=== PATIENT | male | born 1970 | race Caucasian/White ===

== ENCOUNTER 2021-02-08 18:16 | Emergency (ER) | payer OTHER, SELFPAY | END 2021-02-08 20:02 | disposition left against medical advice (07) | PROVIDERS: Emergency Provider Emergency Medicine; PCP Internal Medicine | DX: Z04.3 Encounter for examination and observation following other accident (principal) ==

== ENCOUNTER 2024-06-04 10:41 | Inpatient (IN) | payer OTHER, SELFPAY ==
[2024-06-04] VITALS (7 sets, daily range): BP systolic 117–136; BP diastolic 87–100; PULSE 88–108; RESP 19–22; TEMP 36.6–36.8; O2SAT 88–96; BMI 46.2
--- NOTE | ~2024-06-04 | CT_ITS ---
EXAMINATION: CT ANGIOGRAM CHEST CLINICAL INFORMATION: Pleuritic chest pain COMPARISON: None available. TECHNIQUE: Multiple axial images were obtained through the chest after the administration of 50 mL of Omnipaque 350 intravenous contrast. Extensive vascular post-processing including two-dimensional and three-dimensional reformatted images were created and reviewed on an independent workstation. This CT examination was performed using dose optimization techniques as appropriate, variously including the following: *Automated exposure control *Adjustment of mA and/or kV according to patient size (this includes techniques or standardized protocols for targeted exams where dose is matched to indication/reason for exam; i.e. extremities or head) *Use of iterative reconstruction technique DLP: Findings 7 mGy-cm FINDINGS: Vascular: The pulmonary artery and its branches are widely patent. There is no intraluminal filling defect. The thoracic aorta is of normal caliber. Heart size enlarged. Mild pericardial effusion seen. No coronary artery calcification seen. Nonvascular: The reactive small lymph nodes in the mediastinum largest measuring 1.5 cm in the para-aortic space. The thyroid gland is not visualized. Central trachea and bronchi are widely patent. The lungs are expanded with mild groundglass density in both upper and lower lobes but no consolidation seen. There is bilateral small pleural effusions. No abnormal axillary lymph nodes seen. The chest wall is unremarkable. Visualized liver, spleen, gallbladder and pancreas is unremarkable no acute aggressive lytic or sclerotic process seen. CT/CT angio chest PE protocol IMPRESSION: No evidence of PE. No evidence of aortic aneurysm. Small bilateral pleural effusions. Nonspecific groundglass attenuation seen in both lower lobes and upper lobes likely airway disease. No acute consolidation seen. Fleischner guidelines were followed. Electronically signed by: Alcon Hogan MD 06/04/2024 02:40 PM EST
--- NOTE | ~2024-06-04 | XR_ITS ---
EXAMINATION: XR CHEST CLINICAL INFORMATION: bradycardia COMPARISON: None available. TECHNIQUE: Frontal view of the chest was obtained. FINDINGS: The lungs are well-expanded and clear. The heart size is borderline normal. Mild prominence of perihilar markings is seen but no suspicion for congestion. There is no pleural effusion. No gross bony abnormality. XR/XR chest 1V IMPRESSION: Borderline heart size. Mildly increased bilateral perihilar markings but no congestion seen. Electronically signed by: Alcon Hogan MD 06/04/2024 11:43 AM EST
--- NOTE | 2024-06-04 10:55 | ECG_ITS ---
Test Reason : CHEST PAIN Blood Pressure : / mmHG Vent. Rate : 107 BPM Atrial Rate : 107 BPM P-R Int : 172 ms QRS Dur : 090 ms QT Int : 366 ms P-R-T Axes : 050 -33 059 degrees QTc Int : 488 ms Sinus tachycardia Left axis deviation Inferior infarct , age undetermined Anterior infarct , age undetermined Abnormal ECG No previous ECGs available Referred By: Generic ED Physician Electronically Signed By:NYDIA SINGH MD
--- OUTSIDE RECORDS SUMMARY | 2024-06-04 11:11 | XMS_ITS | Continuity of Care Document ---
Author Name [facility] Organization [facility] Care Team Providers Care Grading Machine Feeder Name Role Phone [facility]-AR Unavailable Unavailable Problems Combined list of problems from Department of Defense and Veterans Affairs facilities. It does not include entries that were removed or entered in error. Problem Status Onset Date Problem Type Date of Resolution Comments Source Calculus of Kidney Active 06/03/19 10 Condition [facility] Chronic sinusitis Active 06/03/19 07 Condition [facility] Sleep apnea Active 06/03/19 00 Condition [facility] Tinnitus Active 06/03/18 90 Condition [facility] Anxiety Active Condition [facility] Binge eating behaviour Active Condition [facility] Cluster headache (SNOMED CT 138223304) Active Condition [facility] Exposure to potentially hazardous substance (SCT 281844045992889) Active Condition Dec 02 Entered By: MANUELA ARTEAGA Comment: Entered automatically through [employer] Problem List documentation program [facility] HTN - Hypertension (SCT 45569439) Active Condition [facility] Insomnia Active Condition [facility] Obesity (SNOMED CT 956956698) Active Condition [facility] Recurrent major depression Active Condition [facility] HYPERTROPHY OF BREAST Inactive Condition 11/17/2004 [facility] ROUTINE MEDICAL EXAM Inactive Condition 11/17/2004 [facility] Diagnosis: ICD-10-CM F33.1 Major depressive disorder, recurrent, moderate Active Diagnosis [facility] Diagnosis: ICD-10-CM E66.9 Obesity, unspecified Active Diagnosis [facility] Diagnosis: ICD-10-CM F51.01 Primary insomnia [facility] Diagnosis: ICD-10-CM G43.019 Migraine w/o aura, intractable, without status migrainosus Active Diagnosis [facility] Diagnosis: ICD-10-CM H93.19 Tinnitus, unspecified ear Active Diagnosis [facility] Diagnosis: ICD-10-CM Z02.89 Encounter for other administrative examinations Active Diagnosis [facility] Diagnosis: ICD-10-CM F41.1 Generalized anxiety disorder Active Diagnosis [facility] Diagnosis: ICD-10-CM Z23 Encounter for immunization Active Diagnosis [facility] Diagnosis: ICD-10-CM F50.81 Binge eating disorder Active Diagnosis [facility] Diagnosis: ICD-10-CM I10 Essential (primary) hypertension Active Diagnosis [facility] [place] [facility] Diagnosis: ICD-10-CM G47.30 Sleep apnea, unspecified Active Diagnosis [facility] [place] [facility] Medications Combined list of outpatient medications from Department of Defense and Veterans Affairs facilities.Medications provided include 1) outpatient medications from the last 15 months, and 2) patient-reported medications. Medication Details Route Status Patient Instructions Prescription Expires Prescription Number Last Dispense Date Ordering Provider Order Date Order Qty Source CHOLECALCIF DINORA 50MCG (2,000UNIT) TAB TAKE ONE TABLET BY MOUTH ONCE DAILY FOR VITAMIN SUPPLEME NTATION ORAL ACTIVE 12/02/2024 [id number] DELIA CHRISTIANSEN 2023 100 [facility] NORTRIPTYLI NE HCL 25MG CAP TAKE ONE CAPSULE BY MOUTH AT BEDTIME HEADACHE ORAL 05/23/2024 [id number] 4 GARR[facility] ROCHA 2022 90 [facility] SERTRALINE HCL 50MG TAB TAKE ONE-HALF TABLET BY MOUTH EVERY MORNING FOR 3 DAYS, THEN TAKE ONE TABLET EVERY MORNING FOR DEPRESSI ON ORAL ACTIVE 06/04/2024 [id number] 4 Iggy CHIU 2023 29 [facility] SUMATRIPTAN SUCCINATE 100MG TAB TAKE ONE TABLET BY MOUTH DIRECTED FOR MIGRAINE HEADACHE AT ONSET OF HEADACHE ; MAY REPEAT IN 2 HOURS IF FIRST DOSE IS NOT EFFECTIV E ORAL 05/23/2024 [id number] 4 GARRY ROCHA 2022 18 [facility] SUMATRIPTAN SUCCINATE 50MG TAB TAKE ONE TABLET BY MOUTH DIRECTED FOR MIGRAINE HEADACHE AT ONSET OF HEADACHE ; MAY REPEAT IN 2 HOURS IF FIRST DOSE IS NOT EFFECTIV E ORAL DISCONT INUED (EDIT) 03/13/2024 [id number] 3 DELIA CHRISTIANSEN 2022 9 [facility] TRAZODONE HCL 100MG TAB TAKE ONE TABLET BY MOUTH AT BEDTIME AND TAKE ONE TABLET AT BEDTIME NEEDED FOR INSOMNIA ORAL ACTIVE 05/26/2025 [id number] 4 Iggy CHIU 2023 60 [facility] Immunizations Combined list of available immunizations from the Department of Defense and Veterans Affairs facilities. Immunization Series Date Given Administered By Site Reaction Lot Number CVX Code Drug Emissions Testing And Repair Technician Status Comments Source COVID-19 (MODERNA), MRNA, LNP-S, PF, 50 MCG/0.5 ML (AGES 12+ YEARS) 2023 ZANVETTOR,CESAR BLESSING LEFT DELTO ID [id number] 312 complet ed [facility] ZOSTER RECOMBINANT 2023 ZANVETTOR,CESAR BLESSING RIGHT DELTO ID [id number] 187 complet ed [facility] TDAP 2023 ZANVETTOR,CESAR BLESSING LEFT DELTO ID [id number] 115 complet ed [facility] ZOSTER RECOMBINANT 2023 ZANVETTOR,CESAR BLESSING RIGHT DELTO ID [id number] 187 complet ed [facility] INFLUENZA, INJECTABLE, QUADRIVALENT, PRESERVATIVE FREE 2022 CESAR OSBORNE LEFT DELTO ID [id number] 150 complet ed [facility] INFLUENZA, UNSPECIFIED FORMULATION 2021 88 complet ed Vet record [facility] FLU,3 YRS (HISTORICAL) 2015 88 complet ed [facility] FLU,3 YRS (HISTORICAL) 2012 88 complet ed [facility] FLU,3 YRS (HISTORICAL) 2011 88 complet ed Site: Right Deltoid [facility] FLU,3 YRS (HISTORICAL) 2010 88 complet ed Site: Left Deltoid [facility] HEP B, ADULT 2001 BOB DRUMMOND 43 complet ed [facility] HEP B, ADULT 2000 DELFIN LEVIN 43 complet ed [facility] HEP B, ADULT 2000 VANE BEEBE 43 complet ed [facility] INFLUENZA, UNSPECIFIED FORMULATION 1997 GUSTAVO BROWN 88 complet ed [facility] Results Combined list of recent chemistry, hematology and other laboratory results from Department of Defense and Veterans Affairs, ranging from 15 months to all on record, depending upon the facility. Order Name Results Value Reference Range Date Interpretation Specimen Comments Source BASIC METABOLIC PANEL (fasting) UREA NITROGEN [MASS/VOLUM E] IN SERUM OR PLASMA 15 mg/dL 7 - 25 08/26 Specimen Type: SERUM No comment entered. Ordering Provider: ROBERTO CHRISTIANSEN Report Released Date/Time: Jun 25, 2023 08:42 AM Reporting Lab: [facility] [place] [facility] [address] [facility] [address] Performing Lab: [facility] [place] [facility] [address] [facility] [address] [facility] [place] [facility] BASIC METABOLIC PANEL (fasting) GLUCOSE [MASS/VOLUM E] IN SERUM OR PLASMA 95 mg/dL 65 - 100 08/26 Specimen Type: SERUM No comment entered. Ordering Provider: ROBERTO CHRISTIANSEN Report Released Date/Time: Jun 25, 2023 08:42 AM Reporting Lab: [facility] [place] [facility] [address] [facility] [address] Performing Lab: [facility] [place] [facility] [address] [facility] [address] [facility] BASIC METABOLIC PANEL (fasting) SODIUM [MOLES/VOLU ME] IN SERUM OR PLASMA 142 mmol/L 135 - 145 08/26 Specimen Type: SERUM No comment entered. Ordering Provider: ROBERTO CHRISTIANSEN Report Released Date/Time: Jun 25, 2023 08:42 AM Reporting Lab: [facility] [place] [facility] [address] [facility] [address] Performing Lab: [facility] [place] [address] [address] [facility] BASIC METABOLIC PANEL (fasting) POTASSIUM [MOLES/VOLU ME] IN SERUM OR PLASMA 4.3 mmol/L 3.5 - 5.0 08/26 Specimen Type: SERUM No comment entered. Ordering Provider: ROBERTO CHRISTIANSEN Report Released Date/Time: Jun 25, 2023 08:42 AM Reporting Lab: [facility] [place] [address] [address] Performing Lab: [facility] [place] [facility] [address] [facility] [address] [facility] BASIC METABOLIC PANEL (fasting) CHLORIDE [MOLES/VOLU ME] IN SERUM OR PLASMA 107 mmol/L 100 - 110 08/26 Specimen Type: SERUM No comment entered. Ordering Provider: ROBERTO CHRISTIANSEN Report Released Date/Time: Jun 25, 2023 08:42 AM Reporting Lab: [facility] [place] [address] [address] Performing Lab: [facility] [place] [facility] [address] [facility] [address] [facility] BASIC METABOLIC PANEL (fasting) CARBON DIOXIDE, TOTAL [MOLES/VOLU ME] IN SERUM OR PLASMA 25 meq/L 20 - 30 08/26 Specimen Type: SERUM No comment entered. Ordering Provider: ROBERTO CHRISTIANSEN Report Released Date/Time: Jun 25, 2023 08:42 AM Reporting Lab: [facility] [address] [address] Performing Lab: [facility] [phone] [place] [address] BASIC METABOLIC PANEL (fasting) CREATININE [MASS/VOLUM E] IN SERUM OR PLASMA 0.68 mg/dL 0.50 - 1.40 08/26 Specimen Type: SERUM No comment entered. Ordering Provider: ROBERTO CHRISTIANSEN Report Released Date/Time: Jun 25, 2023 08:42 AM Reporting Lab: [facility] [address] [address] Performing Lab: [facility] [address] [address] [facility] BASIC METABOLIC PANEL (fasting) GLOMERULAR FILTRATION RATE/1.73 SQ M.PREDICTED [VOLUME RATE/AREA] IN SERUM, PLASMA OR BLOOD BY CREATININE- BASED FORMULA (CKD-EPI 2020) >90mL/ min 60 08/26 Specimen Type: SERUM No comment entered. Ordering Provider: ROBERTO CHRISTIANSEN Report Released Date/Time: Jun 25, 2023 08:42 AM Reporting Lab: [facility] [address] [address] Performing Lab: [facility] [address] [address] [facility] CBC LEUKOCYTES [#/VOLUME] IN BLOOD BY AUTOMATED COUNT 5.18 10*3/u L 4.50 - 11.00 08/26 Specimen Type: BLOOD No comment entered. Ordering Provider: ROBERTO CHRISTIANSEN Report Released Date/Time: Jun 25, 2023 08:42 AM Reporting Lab: [facility] [place] [facility] [address] [facility] [address] Performing Lab: [facility] [address] [address] [facility] CBC ERYTHROCYTE S [#/VOLUME] IN BLOOD BY AUTOMATED COUNT 5.10 10*6/u L 4.23 - 5.66 08/26 Specimen Type: BLOOD No comment entered. Ordering Provider: ROBERTO CHRISTIANSEN Report Released Date/Time: Jun 25, 2023 08:42 AM Reporting Lab: [facility] [place] [facility] [address] [facility] [address] Performing Lab: [facility] [place] [facility] [address] [facility] [address] [facility] CBC HEMOGLOBIN [MASS/VOLUM E] IN BLOOD 14.3 g/dL 12.8 - 17 08/26 Specimen Type: BLOOD No comment entered. Ordering Provider: ROBERTO CHRISTIANSEN Report Released Date/Time: Jun 25, 2023 08:42 AM Reporting Lab: [facility] [place] [facility] [address] [facility] [address] Performing Lab: [facility] [place] [facility] [address] [facility] [address] [facility] CBC HEMATOCRIT [VOLUME FRACTION] OF BLOOD BY AUTOMATED COUNT 43.5 39.2 - 50.4 08/26 Specimen Type: BLOOD No comment entered. Ordering Provider: ROBERTO CHRISTIANSEN Report Released Date/Time: Jun 25, 2023 08:42 AM Reporting Lab: [facility] [place] [facility] [address] [facility] [address] Performing Lab: [facility] [place] [facility] [address] [address] [facility] [place] CBC MCV [ENTITIC VOLUME] BY AUTOMATED COUNT 85.3 fL 82 - 99 08/26 Specimen Type: BLOOD No comment entered. Ordering Provider: ROBERTO CHRISTIANSEN Report Released Date/Time: Jun 25, 2023 08:42 AM Reporting Lab: [facility] [address] [facility] [address] Performing Lab: [facility] [address] [facility] [address] [facility] [place] [facility] CBC MCHC [MASS/VOLUM E] BY AUTOMATED COUNT 32.9 g/dL 30.8 - 35.1 08/26 Specimen Type: BLOOD No comment entered. Ordering Provider: ROBERTO CHRISTIANSEN Report Released Date/Time: Jun 25, 2023 08:42 AM Reporting Lab: [facility] [place] [facility] [address] [address] Performing Lab: [facility] [place] [facility] [address] [address] [facility] [place] [facility] CBC PLATELETS [#/VOLUME] IN BLOOD BY AUTOMATED COUNT 179 10*3/u L 140 - 360 08/26 Specimen Type: BLOOD No comment entered. Ordering Provider: ROBERTO CHRISTIANSEN Report Released Date/Time: Jun 25, 2023 08:42 AM Reporting Lab: [facility] [place] [facility] [address] [address] Performing Lab: [facility] [place] [facility] [address] [facility] [address] [facility] [place] [facility] CBC ERYTHROCYTE DISTRIBUTIO N WIDTH [RATIO] BY AUTOMATED COUNT 12.8 12.0 - 16.0 08/26 Specimen Type: BLOOD No comment entered. Ordering Provider: ROBERTO CHRISTIANSEN Report Released Date/Time: Jun 25, 2023 08:42 AM Reporting Lab: [facility] [address] [facility] [address] Performing Lab: [facility] [address] [address] [facility] [place] [facility] CBC MCH [ENTITIC MASS] BY AUTOMATED COUNT 28.0 pg 26.2 - 32.6 03/26 /2024 Specimen Type: BLOOD No comment entered. Ordering Provider: ROBERTO CHRISTIANSEN Report Released Date/Time: Jun 25, 2023 08:42 AM Reporting Lab: [facility] [address] [address] Performing Lab: [facility] [address] [facility] [address] [facility] FOLATE FOLATE [MASS/VOLUM E] IN SERUM OR PLASMA 11.13 ng/mL 5.2 08/26 Specimen Type: SERUM No comment entered. Ordering Provider: ROBERTO CHRISTIANSEN Report Released Date/Time: Jun 25, 2023 08:42 AM Reporting Lab: [facility] [address] [address] Performing Lab: [facility] [address] [facility] [facility] [address] [facility] HEMOGLOBI N A1C PANEL HEMOGLOBIN A1C/HEMOGLO BIN.TOTAL IN BLOOD BY HPLC 5.4 4.0 - 5.6 08/26 Specimen Type: BLOOD Comment: Values obtained from A1C measurement s can vary. For atypical A1C assays, a reported value of 7.0 could actually be between 6.72 and 7.28 if measured by a reference method. A reported value of 9.0 could actually be between 8.73 and 9.27. Ref: http://www. ngsp.org/[place] Pdata.asp Ordering Provider: ROBERTO CHRISTIANSEN Report Released Date/Time: Jun 25, 2023 08:42 AM Reporting Lab: [facility] [address] [facility] [address] Performing Lab: [address] [address] [facility] MAGNESIUM MAGNESIUM [MASS/VOLUM E] IN SERUM OR PLASMA 2.0 mg/dL 1.6 - 2.6 08/26 Specimen Type: SERUM No comment entered. Ordering Provider: ROBERTO CHRISTIANSEN Report Released Date/Time: Jun 25, 2023 08:42 AM Reporting Lab: [facility] [address] [facility] [address] Performing Lab: [facility] [address] [facility] [address] [facility] PSA PROSTATE SPECIFIC AG [MASS/VOLUM E] IN SERUM OR PLASMA 1.35 ng/mL 0.00 - 4.00 08/26 Specimen Type: SERUM No comment entered. Ordering Provider: ROBERTO CHRISTIANSEN Report Released Date/Time: Jun 25, 2023 08:42 AM Reporting Lab: [facility] [address] [facility] [address] Performing Lab: [facility] [address] [facility] [address] [facility] THYROID T4 FREE(FT4) THYROXINE (T4) FREE [MASS/VOLUM E] IN SERUM OR PLASMA 0.90 ng/dL 0.6 - 1.6 08/26 Specimen Type: SERUM No comment entered. Ordering Provider: ROBERTO CHRISTIANSEN Report Released Date/Time: Jun 25, 2023 08:42 AM Reporting Lab: [facility] [place] [facility] [address] [facility] [address] Performing Lab: [facility] [place] [facility] [address] [facility] [address] [facility] TSH THYROTROPIN [UNITS/VOLU ME] IN SERUM OR PLASMA 1.38 u[IU]/ mL 0.35 - 5.00 08/26 Specimen Type: SERUM No comment entered. Ordering Provider: ROBERTO CHRISTIANSEN Report Released Date/Time: Jun 25, 2023 08:42 AM Reporting Lab: [facility] [place] [facility] [address] [facility] [address] Performing Lab: [facility] [address] [facility] [address] [facility] VITAMIN B12 COBALAMIN (VITAMIN B12) [MASS/VOLUM E] IN SERUM OR PLASMA 469 pg/mL 200 - 900 08/26 Specimen Type: SERUM No comment entered. Ordering Provider: ROBERTO CHRISTIANSEN Report Released Date/Time: Jun 25, 2023 08:42 AM Reporting Lab: [facility] [address] [facility] [facility] [address] Performing Lab: [facility] [address] [facility] [address] [facility] VITAMIN D (25-OH) 25-HYDROXYV ITAMIN D3 [MASS/VOLUM E] IN SERUM OR PLASMA 16 ng/mL 20 - 50 08/26 L Specimen Type: SERUM No comment entered. Ordering Provider: ROBERTO CHRISTIANSEN Report Released Date/Time: Jun 25, 2023 08:42 AM Reporting Lab: [facility] [place] [facility] [address] [facility] [address] Performing Lab: [facility] [place] [facility] [address] [facility] [facility] [address] [facility] [place] [facility] Vital Signs Combined list of inpatient and outpatient Vital Signs from Department of Defense and Veterans Affairs, ranging from 12 months to all on record, depending upon the facility. Vital Sign Value Date Comments Source SYSTOLIC BLOOD PRESSURE 135 12/02/19 24 15:14:21 [facility] [place] [facility] DIASTOLIC BLOOD PRESSURE 89 024 15:14:21 [facility] [place] [facility] PULSE OXIMETRY 96 12/02/2023 15:14:21 [facility] WEIGHT 386 12/02/2023 15[facility]14:21 [facility] BMI 52kg/m2 12/02/2023 15:14:21 [facility] PAIN 2 12/02/2023 15:14:21 [facility] HEIGHT 72 12/02/2023 15:14:21 [facility] TEMPERATURE 97.6 12/02/2023 15:14:21 [facility] PULSE 93 12/02/2023 15:14:21 [facility] RESPIRATION 20 12/02/2023 15:14:21 [facility] Encounters Combined list of: 1) Encounters from Department of Veterans Affairs facilities going back up to thelast 18 months. 2) Encounters from the Department of Defense facilities going back up to 280 months. Location Location Details Encounter Type Encounter Number Reason For Visit Attending Provider ADM Date DC Date Status Disposition Source [facility] Encounter [id number] 12/24 [facility] Out[facility] Encounter [id number] Diagnos is: ICD-10- CM Z02.89 Encount er for other adminis trative examina tions<b r/> DIONNA LOUIS 12/25 [facility] En[facility] [id number] 12/31 [facility] Out[facility] Encounter [id number] ISRAEL PRESTON I 01/03 [facility] Encounter [id number] 01/09 [facility] Out[facility]counter [id number] 03/06 [facility] Out[facility] Encounter [id number] 03/13 [facility] OFFICE O/P EST LOW 20-29 MIN [id number] Diagnos is: ICD-10- CM G47.30 Sleep apnea, unspeci fied
Carmen CHRISTIANSEN 03/13 [facility] En[facility] [id number] 04/24 [facility] Out[facility] Encounter [id number] DORIS OSBORNE 04/24 [facility] Out[facility] Encounter [id number] 04/26 [facility] OFF/OP CONSLTJ NEW/[place] HI 55 [id number] Diagnos is: ICD-10- CM G43.019 Migrain e w/o aura, intract able, without status migrain osus
GARRY ROCHA 05/23 [place] [facility] Out[facility] En[facility] [id number] 05/23 [facility] [id number] 06/13 [facility] OFFICE O/P EST MOD 30 MIN [id number] Diagnos is: ICD-10- CM I10 Essenti al (primar y) hyperte nsion<b r/> Carmen CHRISTIANSEN 06/25 [facility] PSYCH DIAGNOSTIC EVALUATION [id number] Diagnos is: ICD-10- CM H93.19 Tinnitu s, unspeci fied ear<br/ > Tyerll TAPIA Amanda 07/01 [facility] MTMS BY PHARM ADDL 15 MIN [id number] Diagnos is: ICD-10- CM E66.9 Obesity , unspeci fied
GDULA,JANETH A 07/09 [facility] MTMS BY PHARM EST 15 MIN [id number] Diagnos is: ICD-10- CM E66.9 Obesity , unspeci fied
GDULA,JANETH A 07/30 [facility] Outpatient Encounter [id number] 08/07 [facility] Outpatient Encounter [id number] 08/12 [facility] OFFICE O/P EST MOD 30 MIN [id number] Diagnos is: ICD-10- CM G43.019 Migrain e w/o aura, intract able, without status migrain osus
GARRY ROCHA 08/21 [facility] Outpatient [facility]counter [id number] 08/21 [facility] PSYTX W PT 60 MINUTES [id number] Diagnos is: ICD-10- CM H93.19 Tinnitu s, unspeci fied ear<br/ > BLAYNE ALVES 08/21 [facility] [facility] Encounter [id number] 08/29 [facility] PSYTX W PT 45 MINUTES [id number] Diagnos is: ICD-10- CM H93.19 Tinnitu s, unspeci fied ear<br/ > BLAYNE ALVES 09/05 [facility] Out[facility] Encounter [id number] 09/05 [facility] PSYTX W PT 45 MINUTES [id number] Diagnos is: ICD-10- CM F51.01 Primary insomni a
RASTA COVARRUBIASNEY M 09/18 [facility] Out[facility] Encounter [id number] 09/24 [facility] PSYTX W PT 45 MINUTES [id number] Diagnos is: ICD-10- CM F50.81 Binge eating disorde r
BLAYNE ALVES 10/03 [facility] PSYTX W PT 45 MINUTES [id number] Diagnos is: ICD-10- CM F50.81 Binge eating disorde r
BLAYNE ALVES 10/17 [facility] OFFICE O/P EST MOD 30 MIN [id number] Diagnos is: ICD-10- CM G43.019 Migrain e w/o aura, intract able, without status migrain osus
AJ,GARRY POLLY 10/29 [place] [facility] Out[facility] Encounter [id number] 10/29 [facility] PSYTX W PT 45 MINUTES [id number] Diagnos is: ICD-10- CM H93.19 Tinnitu s, unspeci fied ear<br/ > ALISON TRAN 10/31 [facility] PSYTX W PT 45 MINUTES [id number] Diagnos is: ICD-10- CM F50.81 Binge eating disorde r
ALISON TRNA 11/14 [facility] Outpatient Encounter [id number] DORIS OSBORNE 11/20 [facility] PSYTX W PT 45 MINUTES [id number] Diagnos is: ICD-10- CM F50.81 Binge eating disorde r
ALISON TRAN 11/27 [facility] OFFICE O/P EST LOW 20 MIN [id number] Diagnos is: ICD-10- CM I10 Essenti al (primar y) hyperte nsion<b r/> Carmen CHRISTIANSEN 12/01 [facility] PSYTX W PT 45 MINUTES [id number] Diagnos is: ICD-10- CM F50.81 Binge eating disorde r
ALISON TRAN 12/19 [facility] Out[facility] Encounter [id number] 01/02 [facility] PSYTX W PT 45 MINUTES [id number] 1. Diagnos is: ICD-10- CM H93.19 Tinnitu s, unspeci fied ear<br/ > ALISON TRAN 01/16 [facility] PSYTX W PT 45 MINUTES [id number] Diagnos is: ICD-10- CM F51.01 Primary insomni a
ALISON TRAN 01/30 [facility] Out[facility] Encounter [id number] 02/10 [facility] Out[facility] Encounter [id number] 02/10 [facility] PSYTX W PT 45 MINUTES [id number] Diagnos is: ICD-10- CM F51.01 Primary insomni a
ALISON TRAN 02/27 [facility] Out[facility] Encounter [id number] 03/09 [facility] OFF/OP EST OCTOBER X REQ PHY/QHP [id number] Diagnos is: ICD-10- CM Z23 Encount er for immuniz ation<b r/> DORIS OSBORNE 03/09 [facility] PSYTX W PT 45 MINUTES [id number] Diagnos is: ICD-10- CM F41.1 General ized anxiety disorde r
JUAN ALBERTO MARTINEZ 03/13 [facility] Outpatient Encounter [id number] 1. Diagnos is: ICD-10- CM Z02.89 Encount er for other adminis trative examina tions<b r/> FAMILIA JENKINS 03/24 [facility] PSYTX W PT 45 MINUTES [id number] Diagnos is: ICD-10- CM H93.19 Tinnitu s, unspeci fied ear<br/ > RASTA COVARRUBIASNEY M 03/27 [facility] OFFICE O/P EST MOD 30 MIN [id number] Diagnos is: ICD-10- CM G43.019 Migrain e w/o aura, intract able, without status migrain osus
GARRY ROCHA 03/31 [place] [facility] Outpatient Encounter [id number] 1.03/31 [facility] PSYTX W PT W E/M 30 MIN [id number] 1. Diagnos is: ICD-10- CM F51.01 Primary insomni a
Sydnie BEDOYA BRENNAN B 04/01 [facility] Outpatient Encounter [id number] 04/08 [facility] PSYTX W PT 45 MINUTES [id number] 1. Diagnos is: ICD-10- CM E66.9 Obesity , unspeci fied
ALISON TRAN 04/24 [facility] Outpatient Encounter [id number] [facility] PSYCH DIAG EVAL W/MED SRVCS [id number] Diagnos is: ICD-10- CM F33.1 Major depress suzanne disorde r, recurre nt, moderat e
MILLY CHIU 05/04 [facility] [place] [place] PSYTX W PT 45 MINUTES [id number] Diagnos is: ICD-10- CM F33.1 Major depress suzanne disorde r, recurre nt, moderat e
ALISON TRAN 05/15 [facility] [place] OFFICE O/P EST SF 10 MIN [id number] Diagnos is: ICD-10- CM F33.1 Major depress suzanne disorde r, recurre nt, moderat e
MILLY CHIU 05[facility]25 [facility] Social History Combined list of available smoking, tobacco, and other social history from Department of Defense and Veterans Affairs facilities. Social History Type Response Date Comment Source Tobacco smoking status [facility] VA-TOBACCO FOR[facility] USER [facility]2024 [facility] [place] [facility] History of tobacco use VA-TOBACCO QUIT 15 YRS OR MORE 04/01/2024 [facility] History of tobacco use VA-TOBACCO QUIT 15 YRS OR MORE 01/09/2023 [facility] History of tobacco use LIFETIME NON-TOBACCO USER 01/04/2017 [facility] History of tobacco use QUIT TOBACCO USE > 7 YEARS AGO 12/26/2015 quit in 1997 [facility] History of tobacco use HISTORY OF SMOKING 10/27/2003 Smoke free 6 years [facility] History of tobacco use HISTORY OF SMOKING 01/02/2002 [facility] History of tobacco use HISTORY OF SMOKING 01/14/2001 non smoker 4 years [facility] Plan of Care List of future care activities from Department of [facility] facilities. Additional future care activities may be listed in the Assessment and Plan section. Date/Time Care Activity Care Activity Detail Facili ty 06/12/2024 AMBULATORY - PSYCHIATRY AMBULATORY - PSYC HIATRY [facility] 06/23/2024 AMBULATORY - PSYCHIATRY AMBULATORY - PSYC MAATRY [facility] 07/07/2024 AMBULATORY - NEUROLOGY AMBULATORY - NEURO [facility]
--- OUTSIDE RECORDS SUMMARY | 2024-06-04 11:13 | XMS_ITS | Encounter Summary ---
Author Name [facility] [place] [facility] Address [address] [place] [id number] Care Team Providers Care Paraeducator Name Role Phone DELIA CHRISTIANSEN Primary Care Provider [facility] Insurance Providers: All historical and current Section Date Range: From patient's date of to the date document was created. This section includes the names of all active insurance providers for the patient. Insurance Provider Type of Coverage Plan Name Start of Policy Coverage End of Policy Coverage Group Number Member ID Insurance Provider's Telephone Number Policy Garner's Name Patient's Relationship to Policy Garner [facility] Apr 03, 2012 [id number] [phone] DIANE RASCON SPOUSE Selected Encounter This section includes the information on record at [place] for the Encounter. Date/Time Encounter Type Encounter Description Reason Provider Source Aug 22, 2023 09:30 AM OFFICE O/P EST MOD 30 MIN [facility] ICD-10-CM G43.019 Migraine w/o aura, intractable, without status migrainosus GARRY ROCHA [facility] Encounter Template Text not used by [place] Assessments - Encounter Diagnoses This section includes the primary and secondary diagnoses documented for the Encounter. Date/Time Primary/Secondary Diagnosis Diagnosis Name Provider Source Aug 22, 2023 10:24 AM PRIMARY Migraine w/o aura, intractable, without status migrainosus GARRY ROCHA [facility] Plan of Treatment: Future Appointments (+ 6 months) and Future Tests (+/- 45 days) The Plan of Treatment section includes future care activities for the patient from all [place] [facility] This section includes future appointments and future orders which are active, pending or scheduled. Future Appointments This section includes appointments that were scheduled to occur 6 months from the date of the Encounter, up to a maximum of 20 appointments. The data comes from all [place] treatment facilities. Appointment Date/Time Appointment Type Appointme nt Facility Name Sep 06, 2023 02:00 PM AMBULATORY - [facility]IATRY [facility] [place] [facility] Sep 19, 2023 01:00 PM AMBULATORY - [facility]IATRY [facility] [place] [facility] October 04, 2023 02:00 PM AMBULATORY - PS[facility]CHIATRY [facility] [place] [facility] October 18, 2023 02:00 PM AMBULATORY - PS[facility]IATRY [facility] [place] [facility] October 30, 2023 03:30 PM AMBULATORY - NONE [facility] [place] [facility] October 30, 2023 03:30 PM AMBULATORY - NEUROLOGY [facility] November 01, 2023 02:00 PM AMBULATORY - PS[facility]CHIATRY [facility] [place] [facility] Nov 15, 2023 02:00 PM AMBULATORY - [facility]IATRY [facility] [place] [facility] Nov 28, 2023 02:00 PM AMBULATORY - PS[facility]CHIATRY [facility] [place] [facility] Dec 02, 2023 03:30 PM AM[facility]ULATORY [facility] MEDICINE [facility] [place] [facility] Dec 20, 2023 02:00 PM AMBULATORY - PS[facility]CHIATRY [facility] [place] [facility] Jan 17, 2024 02:00 PM AMBULATORY - PS[facility]CHIATRY [facility] [place] [facility] Jan 31, 2024 02:00 PM AMBULATORY - PS[facility]CHIATRY [facility] [place] [facility] Feb 11, 2024 02:30 PM AMBULATORY [place]OLOGY [place] [facility] [place] [facility] Lab Results: +/- 30 days of the encounter This section includes the Chemistry and Hematology Lab Results on record with [place] for the patient. Radiology Reports and Pathology Reports are provided separately, in subsequent sections. Lab Results This section contains the Chemistry/Hematology Results that were resulted 30 days before or 30 daysafter the date of the Encounter. Date/Time Source Result Type Result - Unit Interpretation Reference Range Comment Aug 27, 2023 09:19 [facility] [place] [facility] THYROID T4 FREE(FT4) Specimen Type: SERUM No comment entered. Ordering Provider: THERESA CHRISTIANSEN AM Report Released Date/Time: Jun 25, 2023 08:42 AM Reporting [facility] [place] [facility] [address] [facility] [address] Performing Lab: [facility] [place] [facility] [address] [facility] [address] THYROID T4 FREE(FT4) 0.90 ng/dL 0.6-1.6 Aug 27, 2023 09:19 AM [facility] FOLATE Specimen Type: SERUM No comment entered. Ordering Provider: THERESA CHRISTIANSEN AM Report Released Date/Time: Jun 25, 2023 08:42 AM Reporting [facility] [place] [facility] [address] [facility] [address] Performing Lab: [facility] [address] [facility] [address] FOLATE 11.13 ng/mL >5.2 Aug 27, 2023 09:19 AM [facility] VITAMIN B12 Specimen Type: SERUM No comment entered. Ordering Provider: THERESA CHRISTIANSEN AM Report Released Date/Time: Jun 25, 2023 08:42 AM Reporting Lab: [facility] [place] [facility] [address] [facility] [address] Performing Lab: [facility] [address] [facility] [address] VITAMIN B12 469 pg/mL 200-900 Aug 27, 2023 09:19 AM [facility] VITAMIN D (25-[place]) Specimen Type: SERUM No comment entered. Ordering Provider: THERESA CHRISTIANSEN AM Report Released Date/Time: Jun 25, 2023 08:42 AM Reporting Lab: [facility] [place] [facility] [address] [facility] [address] Performing Lab: [facility] [place] [facility] [address] [facility] [address] VITAMIN D (25-[place]) 16 ng/mL L 20-50 Aug 27, 2023 09:19 AM [facility] MAGNESIUM Specimen Type: SERUM No comment entered. Ordering Provider: THERESA CHRISTIANSEN AM Report Released Date/Time: Jun 25, 2023 08:42 AM Reporting Lab: [facility] [address] [facility] [address] Performing Lab: [address] [address] MAGNESIUM 2.0 mg/dL 1.6-2.6 Aug 27, 2023 09:19 AM [facility] HEMOGLOBIN A1C PANEL Specimen Type: BLOOD Comment: Values obtained from A1C measurements can vary. For atypical A1C assays, a reported value of 7.0 could actually be between 6.72 and 7.28 if measured by a reference method. A reported value of 9.0 could actually be between 8.73 and 9.27. Ref: http://www.ngs p.org/CAPdata. asp Ordering Provider: THERESA CHRISTIANSEN AM Report Released Date/Time: Jun 25, 2023 08:42 AM Reporting Lab: [address] [address] Performing Lab: [address] [address] HEMOGLOBIN A1C 5.4 4.0-5.6 Aug 27, 2023 09:19 AM [facility] CBC Specimen Type: BLOOD No comment entered. Ordering Provider: THERESA CHRISTIANSEN AM Report Released Date/Time: Jun 25, 2023 08:42 AM Reporting Lab: [address] [address] Performing Lab: [address] [address] WBC 5.18 10*3/uL 4.50-11.00 RBC 5.10 10*6/uL 4.23-5.66 HGB 14.3 g/dL 12.8-17 HCT 43.5 39.2-50.4 MCV 85.3 fL 82-99 MCHC 32.9 g/dL 30.8-35.1 PLT 179 10*3/uL 140-360 RDW-CV 12.8 12.0-16.0 MCH 28.0 pg 26.2-32.6 Aug 27, 2023 09:19 AM [facility] TSH Specimen Type: SERUM No comment entered. Ordering Provider: THERESA CHRISTIANSEN AM Report Released Date/Time: Jun 25, 2023 08:42 AM Reporting Lab: [facility] [address] [facility] [address] Performing Lab: [address] [address] TSH 1.38 u[IU]/mL 0.35-5.00 Aug 27, 2023 09:19 AM [facility] PSA Specimen Type: SERUM No comment entered. Ordering Provider: THERESA CHRISTIANSEN AM Report Released Date/Time: Jun 25, 2023 08:42 AM Reporting Lab: [facility] [address] [facility] [address] Performing Lab: [address] [address] PSA 1.35 ng/mL 0.00-4.00 Aug 27, 2023 09:19 AM [facility] LIPID PANEL FASTING Specimen Type: SERUM No comment entered. Ordering Provider: THERESA CHRISTIANSEN AM Report Released Date/Time: Jun 25, 2023 08:42 AM Reporting Lab: [facility] [address] [facility] [address] Performing Lab: [address] [address] CHOLESTEROL 183 mg/dL TRIGLYCERIDE 112 mg/dL 0-150 LDL calculated 120 mg/dL 0-129 CHOL/HDL 4.5 HDL CHOLESTEROL 41 mg/dL 40-60 Aug 27, 2023 09:19 AM [facility] LIVER FUNCTION Specimen Type: SERUM No comment entered. Ordering Provider: THERESA CHRISTIANSEN AM Report Released Date/Time: Jun 25, 2023 08:42 AM Reporting Lab: [facility] [address] [facility] [address] Performing Lab: [facility] [address] [facility] [address] PROTEIN,TOTAL 6.2 g/dL 6.0-8.3 ALBUMIN 3.6 g/dL 3.5-5.0 ALKALINE PHOSPHATASE 75 U/L 40-150 AST 10 U/L 5-34 ALT 15 U/L BILIRUBIN, TOTAL 0.9 mg/dL 0.2-1.2 Aug 27, 2023 09:19 AM [facility] BASIC METABOLIC PANEL (fasting) Specimen Type: SERUM No comment entered. Ordering Provider: THERESA CHRISTIANSEN AM Report Released Date/Time: Jun 25, 2023 08:42 AM Reporting Lab: [facility] [address] [facility] [address] Performing Lab: [address] [address] UREA NITROGEN 15 mg/dL 7-25 GLUCOSE 95 mg/dL 65-100 SODIUM 142 mmol/L 135-145 POTASSIUM 4.3 mmol/L 3.5-5.0 CHLORIDE 107 mmol/L 100-110 CO2 25 meq/L 20-30 CREATININE, Serum 0.68 mg/dL 0.50-1.40 eGFR(CKD-EPI 2020) >90 mL/min >60 Encounter Notes: All associated encounter notes This section contains the clinical notes associated to the Encounter. Date/Time Encounter Note(s) Provider Source Aug 22, 2023 10:23 AM NEUROLOGY OUTPATIE NT NOTE: LOCAL TITLE: NEUROLOGY OUTPATIENT PROGRESS NOTE STANDARD TITLE: NEUROLOGY OUTPATIENT NOTE DATE OF NOTE: AUG 22, 2023@10:23 ENTRY DATE: AUG 22, 2023@10:24:10 AUTHOR: GARRY ROCHA EXP COSIGNER: URGENCY: STATUS: COMPLETED Clinical services provided by Dr. Garry Rocha via telehealth from the [facility] to the [facility] located in the [facility]. Clinical Service provided: f/u Service Delivery Method: [facility] Length of Service:30 min Primary Diagnosis:Migraine, Intractable, with or without aura For a complete progress note, please see the [facility] Medical record (accessible through JL). /blair/ Garry Rocha MD, MPH [id number] [facility] TelePain Lead Signed: 08/22/2023 10:24 GARRY ROCHA [facility]
--- OUTSIDE RECORDS SUMMARY | 2024-06-04 11:13 | XMS_ITS ---
Author Name [facility] [facility] [place] Organization [facility] [place] [facility] [place] Address [address] [place] [address] Care Team Providers Care Cylinder Checker Name Role Phone DELIA CHRISTIANSEN Primary Care Provider Unavaila [facility] Insurance Providers: All historical and current Section Date Range: From patient's date of to the date document was created. This section includes the names of all active insurance providers for the patient. Insurance Provider Type of Coverage Plan Name Start of Policy Coverage End of Policy Coverage Group Number Member ID Insurance Provider's Telephone Number Policy Garner's Name Patient's Relationship to Policy Garner [facility] Apr 03, 2012 [id number] DIANE RASCON SPOUSE Selected Encounter This section includes the information on record at [place] for the Encounter. Date/Time Encounter Type Encounter Description Reason Pro vider Source Aug 22, 2023 09:30 AM Outpatient Encounter ADMIN PAT ACTIVTIES (MASNONCT) IHE Encounter Template Text not used by [place] Plan of Treatment: Future Appointments (+ 6 months) and Future Tests (+/- 45 days) The Plan of Treatment section includes future care activities for the patient from all [facility] treatmentfacilities. This section includes future appointments and future orders which are active, pending or scheduled. Future Appointments This section includes appointments that were scheduled to occur 6 months from the date of the Encounter, up to a maximum of 20 appointments. The data comes from all [place] treatment facilities. Appointment Date/Time Appointment Type Appointme nt Facility Name Sep 06, 2023 02:00 PM [facility] Sep 19, 2023 01:00 PM [facility] October 04, 2023 02:00 PM AMBULAT[facility] October 18, 2023 02:00 PM [facility]UL[facility] October 30, 2023 03:30 PM AMBULATORY - NONE [facility] October 30, 2023 03:30 PM [facility]ORY - [facility]UROLOGY [facility] November 01, 2023 02:00 PM AMBULATORY [facility] [place] [facility] Nov 15, 2023 02:00 PM AMBULATORY - [facility] [place] [facility] Nov 28, 2023 02:00 PM AMBULATORY - [facility]AT[facility] [place] [facility] Dec 02, 2023 03:30 PM AM[facility]ULATORY [facility] MEDICINE [facility] [place] [facility] Dec 20, 2023 02:00 PM AMBULATORY - PS[facility]IAT[facility] [place] [facility] Jan 17, 2024 02:00 PM AMBULATORY - [facility] [place] [facility] Jan 31, 2024 02:00 PM AMBULATORY - [facility]ATRY [facility] [place] [facility] Feb 11, 2024 02:30 PM AMBULATORY - NEUROLOGY [facility] [place] [facility] Lab Results: +/- 30 days of the encounter This section includes the Chemistry and Hematology Lab Results on record with [place] for the patient. Radiology Reports and Pathology Reports are provided separately, in subsequent sections. Lab Results This section contains the Chemistry/Hematology Results that were resulted 30 days before or 30 daysafter the date of the Encounter. Date/Time Source Result Type Result - Unit Interpretation Reference Range Comment Aug 27, 2023 09:19 AM [facility] [place] [facility] THYROID T4 FREE(FT4) Specimen Type: SERUM No comment entered. Ordering Provider: THERESA CHRISTIANSEN AM Report Released Date/Time: Jun 25, 2023 08:42 AM Reporting Lab: [facility] [place] [address] [address] Performing Lab: [facility] [address] [facility] [address] THYROID T4 FREE(FT4) 0.90 ng/dL 0.6-1.6 Aug 27, 2023 09:[address] FOLATE Specimen Type: SERUM No comment entered. Ordering Provider: THERESA CHRISTIANSEN AM Report Released Date/Time: Jun 25, 2023 08:42 AM Reporting Lab: [facility] [place] [facility] [address] [facility] [address] Performing Lab: [facility] [address] [facility] [address] FOLATE 11.13 ng/mL >5.2 Aug 27, 2023 09:[address] [facility] VITAMIN B12 Specimen Type: SERUM No comment entered. Ordering Provider: THERESA CHRISTIANSEN AM Report Released Date/Time: Jun 25, 2023 08:42 AM Reporting Lab: [facility]ITALRVETER[facility] [address] [facility] [address] Performing Lab: [facility] [address] [address] VITAMIN B12 469 pg/mL 200-900 Aug 27, 2023 09:[address] [facility] VITAMIN D (25-[place]) Specimen Type: SERUM No comment entered. Ordering Provider: THERESA CHRISTIANSEN AM Report Released Date/Time: Jun 25, 2023 08:42 AM Reporting Lab: [facility]ITALRVETER[facility] [address] [facility] [address] Performing Lab: [facility]ITALRVETER[facility] [address] [address] VITAMIN D (25-[place]) 16 ng/mL L 20-50 Aug 27, 2023 09:19 AM [facility]ITAL[facility] CBC Specimen Type: BLOOD No comment entered. Ordering Provider: THERESA CHRISTIANSEN AM Report Released Date/Time: Jun 25, 2023 08:42 AM Reporting Lab: [facility]ITALRVETER[facility] [place] [address] [place] [address] Performing Lab: [facility] [address] [facility] [address] WBC 5.18 10*3/uL 4.50-11.00 RBC 5.10 10*6/uL 4.23-5.66 HGB 14.3 g/dL 12.8-17 HCT 43.5 39.2-50.4 MCV 85.3 fL 82-99 MCHC 32.9 g/dL 30.8-35.1 PLT 179 10*3/uL 140-360 RDW-CV 12.8 12.0-16.0 MCH 28.0 pg 26.2-32.6 Aug 27, 2023 09:19 AM [facility] MAGNESIUM Specimen Type: SERUM No comment entered. Ordering Provider: THERESA CHRISTIANSEN AM Report Released Date/Time: Jun 25, 2023 08:42 AM Reporting Lab: [address] [address] Performing Lab: [address] [address] MAGNESIUM 2.0 mg/dL 1.6-2.6 Aug 27, 2023 09:19 AM [facility] HEMOGLOBIN A1C PANEL Specimen Type: BLOOD Comment: [...] Jun 25, 2023 08:42 AM Reporting Lab: [address] [address] Performing Lab: [address] [address] HEMOGLOBIN A1C 5.4 4.0-5.6 Aug 27, 2023 09:19 AM [facility] TSH Specimen Type: SERUM No comment entered. Ordering Provider: THERESA CHRISTIANSEN AM Report Released Date/Time: Jun 25, 2023 08:42 AM Reporting Lab: [facility] [address] [facility] [address] Performing Lab: [facility] [address] [address] TSH 1.38 u[IU]/mL 0.35-5.00 Aug 27, 2023 09:19 AM [facility] PSA Specimen Type: SERUM No comment entered. Ordering Provider: THERESA CHRISTIANSEN AM Report Released Date/Time: Jun 25, 2023 08:42 AM Reporting Lab: [address] [address] Performing Lab: [address] [address] PSA 1.35 ng/mL 0.00-4.00 Aug 27, 2023 09:19 AM [facility] LIVER FUNCTION Specimen Type: SERUM No comment entered. Ordering Provider: THERESA CHRISTIANSEN AM Report Released Date/Time: Jun 25, 2023 08:42 AM Reporting Lab: [address] [address] Performing Lab: [address] [address] PROTEIN,TOTAL 6.2 g/dL 6.0-8.3 ALBUMIN 3.6 g/dL 3.5-5.0 ALKALINE PHOSPHATASE 75 U/L 40-150 AST 10 U/L 5-34 ALT 15 U/L BILIRUBIN, TOTAL 0.9 mg/dL 0.2-1.2 Aug 27, 2023 09:19 AM [facility] LIPID PANEL FASTING Specimen Type: SERUM No comment entered. Ordering Provider: THERESA CHRISTIANSEN AM Report Released Date/Time: Jun 25, 2023 08:42 AM Reporting Lab: [address] [address] Performing Lab: [address] [address] CHOLESTEROL 183 mg/dL TRIGLYCERIDE 112 mg/dL 0-150 LDL calculated 120 mg/dL 0-129 CHOL/HDL 4.5 HDL CHOLESTEROL 41 mg/dL 40-60 Aug 27, 2023 09:19 AM [facility] BASIC METABOLIC PANEL (fasting) Specimen Type: SERUM No comment entered. Ordering Provider: THERESA CHRISTIANSEN AM Report Released Date/Time: Jun 25, 2023 08:42 AM Reporting Lab: [facility] [address] [facility] [address] Performing Lab: [address] [address] UREA NITROGEN 15 mg/dL 7-25 GLUCOSE 95 mg/dL 65-100 SODIUM 142 mmol/L 135-145 POTASSIUM 4.3 mmol/L 3.5-5.0 CHLORIDE 107 mmol/L 100-110 CO2 25 meq/L 20-30 CREATININE, Serum 0.68 mg/dL 0.50-1.40 eGFR(CKD-EPI 2020) >90 mL/min >60 Social History: Smoking Status (Most current) and Tobacco Use (All prior to encounter date) This section includes the most current, and the historical, smoking and tobacco- related health factors from the [facility] facility where the Encounter took place. Current Smoking Status This section includes the most current smoking, or tobacco-related health factor, from the [facility] facility where the Encounter took place. Date/Time Current Smoking Status Comment [facility] it Jan 09, 2023 05:09 PM VA-TOBACCO QUIT 15 YRS OR MORE [facility] Tobacco Use History This section includes a history of the smoking, or tobacco-related health factors, that were collected on or before the date of the Encounter. The data comes from the [facility] facility where the Encounter took place. Date/Time Smoking Status/Tobac co Use Comment Facility Jan 09, 2023 05:09 PM [place]-TOBACCO QUIT 15 YRS OR MORE [facility] Jan 04, 2017 07:42 AM LIFETIME NON-TOBACCO USER [facility] Dec 26, 2015 09:20 AM QUIT TOBACCO USE > 7 YEARS AGO quit in 1997 [facility] October 27, 2003 03:29 PM HISTORY OF SMOKING Smoke free 6 years [facility] Jan 02, 2002 08:56 AM HISTORY OF SMOKING [facility] Jan 02, 2002 08:56 AM QUIT TOBACCO USE > 7 YEARS AGO [facility] Jan 14, 2001 11:25 AM HISTORY OF SMOKING non smoker 4 years [facility] Encounter Notes: All associated encounter notes This section contains the clinical notes associated to the Encounter. Date/Time Encounter Note(s) Provider Source Aug 22, 2023 09:31 AM NEUROLOGY OUTPATIE NT NOTE: LOCAL TITLE: NEUROLOGY CLINIC NOTE STANDARD TITLE: NEUROLOGY OUTPATIENT NOTE DATE OF NOTE: AUG 22, 2023@09:31 ENTRY DATE: AUG 22, 2023@09:31:30 AUTHOR: GARRY ROCHA EXP COSIGNER: URGENCY: STATUS: COMPLETED Tele-Headache Progress Note The consented to telehealth services. Patient address and safety in case of emergency were confirmed. Patient's phone number and Emergency Contact phone number were confurmed In Attendence:1) [place] 2)Provider CC:Headache Last Visit: Impression: 1-Migrainous headaches, long-lasting, severe headacheswith photo,phono/kinesophobia, somewhat atypical being side-locked, some autonomic dysfunction, no ptosis, treated previously as cluster, but no effect with verapimil, has had mild relief with O2, and moderate with oral sumatriptan 50mg and tylenol. Discussed avoidance of medication overuse headache, offered oral, injectable, nasal sumatriptan, patient prefers trying higher dose oral first. Frequency of up to 12 days/month, discussed preventives, would avoid topiramate (prior kidney stone, depakote(obesity). Has some sleep dysfunction which may be sleep apnea, but discussed nortriptyline, patient is amenable. Prior MRI wnl. Has JW evaluation pending. Recommendations: 1-nortriptyline 25mg HS 2-sumatriptan 100mg PO at onset, repeat in 1 hr 3-RTC 3 months Interval History: -nortriptyline is helping to reduce the length of headaches -sumatriptan 100mg-will reduce the headache by 50% in severity -having 3-4 severe headaches/month which will reduce to a reasonable headache -having a total of 4 regular headaches /month-down from 8-12 -had sleep apnea-on CPAP-started full facemask, now with nasal pillows - ROS: No new visual, auditory or cognitive issues, no new weakness or numbness, no chest pain, no belly pain, no shortness of breath, no melena, no heamtochezia, all others negative. PMHx/Problem List: Active problems - Computerized Problem List is the source for the followin. HTN - Hypertension (SCT 95708540) 2. Sleep apnea 3. Tinnitus 4. Cluster headache (SNOMED CT 137389847) 5. Calculus of Kidney 6. Chronic sinusitis 7. Obesity (SNOMED CT 523407674) Current Medication List: Active Outpatient Medications (including Supplies): Active Outpatient Medications Status 1) NORTRIPTYLINE HCL 25MG CAP TAKE ONE CAPSULE BY MOUTH ACTIVE AT BEDTIME HEADACHE 2) SUMATRIPTAN SUCCINATE 100MG TAB TAKE ONE TABLET BY ACTIVE MOUTH DIRECTED FOR MIGRAINE HEADACHE AT ONSET OF HEADACHE; MAY REPEAT IN 2 HOURS IF FIRST DOSE IS NOT EFFECTIVE Active Non-VA Medications Status 1) Non-VA ESCITALOPRAM OXALATE 20MG TAB 10MG BY MOUTH ACTIVE ONCE DAILY 2) Non-VA TRAZODONE HCL TAB 100 MG TO 200 MG BY MOUTH AT ACTIVE BEDTIME 4 Total Medications Medication list reconciled with patient Allergies: Patient has answered NKA Examination: deferred Impression: 1-Migraines, somewhat atypical (sidelocked, some autonomic) ~ 4-8 days/month, down from ~ 12 days/month, on nortriptyline 25mg, no side effects, and sumatriptan 100mg which appears to be effective abortive for prostrating headaches. Started CPAP trial for JW, still adjusting. Will continue current medications and reevaluate in several months. Recommendations: 1-nortriptyline 25mg HS 2-sumatriptan 100mg PO at onset, repeat in 1 hr 3-RTC 3 months (X)Neurologic condition and management, including choice of medications and therapies, was evaluated and discussed with patient based on his complex other medical conditions. (X)Reviewed indications for neurological medications, as well as side effects and precauions. At this point the benefits outweigh the drawbacks. Patient verbalizes understanding. 30 mins spent on exam, assessment, counseling, and coordination of medical care, including explaining therapeutic options and diagnostic testing. More than 50% of the time of this visit was spent with the patient discussing treatment/diagnostic options, education and in coordination. Active problems - Computerized Problem List is the source for the followin. HTN - Hypertension (SCT 34407909) 2. Sleep apnea 3. Tinnitus 4. Cluster headache (SNOMED CT 266324632) 5. Calculus of Kidney 6. Chronic sinusitis 7. Obesity (SNOMED CT 472375920) Active Outpatient Medications (including Supplies): Active Outpatient Medications Status 1) NORTRIPTYLINE HCL 25MG CAP TAKE ONE CAPSULE BY MOUTH ACTIVE AT BEDTIME HEADACHE 2) SUMATRIPTAN SUCCINATE 100MG TAB TAKE ONE TABLET BY ACTIVE MOUTH DIRECTED FOR MIGRAINE HEADACHE AT ONSET OF HEADACHE; MAY REPEAT IN 2 HOURS IF FIRST DOSE IS NOT EFFECTIVE Active Non-VA Medications Status 1) Non-VA ESCITALOPRAM OXALATE 20MG TAB 10MG BY MOUTH ACTIVE ONCE DAILY 2) Non-VA TRAZODONE HCL TAB 100 MG TO 200 MG BY MOUTH AT ACTIVE BEDTIME 4 Total Medications Allergies: Patient has answered NKA No Vitals Were Found /blair/ Garry Rocha MD, MPH [id number] [facility] TelePain Lead Signed: 08/22/2023 10:00 GARRY ROCHA [facility]
--- OUTSIDE RECORDS SUMMARY | 2024-06-04 11:13 | XMS_ITS | Encounter Summary ---
Author Name [facility] [place] Organization [facility] [place] [facility] [place] Address [address] [place] [address] Care Team Providers Care Motel Keeper Name Role Phone DELIA CHRISTIANSEN Primary Care Provider Unavaila [facility] Insurance Providers: All historical and current [...] Garner's Name Patient's Relationship to Policy Garner [facility] Apr 03, 2012 [id number] DIANE RASCON SPOUSE Selected Encounter This section includes the information on record at [place] for the Encounter. Date/Time Encounter Type Encounter Description Reason Pro vider Source October 30, 2023 03:30 PM Outpatient Encounter ADMIN PAT ACTIVTIES (MASNONCT) IHE Encounter Template Text not used by MD Plan of Treatment: Future Appointments (+ 6 [...] 20 appointments. The data comes from all [place] treatment facilities. Appointment Date/Time Appointment Type Appointme nt Facility Name November 01, 2023 02:00 PM AMBULATORY [facility] [place] [facility] Nov 15, 2023 02:00 PM AMBULAT[facility] [place] [facility] Nov 28, 2023 02:00 PM AMBULATORY [facility] [place] [facility] Dec 02, 2023 03:30 PM AMBULATORY [facility] MEDICINE [facility] [place] [facility] Dec 20, 2023 02:00 PM AMBULAT[facility] [place] [facility] Jan 17, 2024 02:00 PM AMBULATORY [facility] [place] [facility] Jan 31, 2024 02:00 PM AMBULATORY [facility] [place] [facility] Feb 11, 2024 02:30 PM AMBULATORY [facility]UROLOGY [facility] [place] [facility] Feb 28, 2024 02:00 PM AMBULATORY [facility] [place] [facility] Mar 09, 2024 03:30 PM AM[facility]ULATORY [facility]IC[facility] [place] [facility] Mar 13, 2024 02:00 PM AMBULATORY [facility] [place] [facility] Mar 24, 2024 11:00 AM AMBULATORY - MEDICINE [facility] [place] [facility] Mar 27, 2024 02:00 PM AMBULATORY [facility] [place] [facility] Mar 31, 2024 02:30 PM AMBULATORY [facility]UROLOGY [facility] [place] [facility] Mar 31, 2024 02:30 PM AMBULATORY - NEUROLOGY [facility] Apr 01, 2024 08:30 AM AMBULATORY [facility] [place] [facility] Apr 24, 2024 02:00 PM AMBULATORY [facility] [place] [facility] Social History: Smoking Status (Most current) and Tobacco Use (All prior to encounter date) This section includes the most current, and the historical, smoking and tobacco- related health factors from the VA facility where the Encounter took place. Current Smoking Status This section includes the most current smoking, or tobacco-related health factor, from the [facility] facility where the Encounter took place. Date/Time Current Smoking Status Comment [facility] Jan 09, 2023 05:09 PM VA-TOBACCO FORMER USER [facility] Tobacco Use History This section includes a history of the smoking, or tobacco-related health factors, that were collected on or before the date of the Encounter. The data comes from the [place] facility where the Encounter took place. Date/Time Smoking Status/Tobac co Use Comment Facility Jan 09, 2023 05:09 PM MD-TOBACCO QUIT 15 YRS OR MORE [facility] Jan 04, 2017 07:42 AM LIFETIME NON-TOBACCO USER [facility] Dec 26, 2015 09:20 AM QUIT TOBACCO USE > 7 YEARS AGO quit in 1997 [facility] October 27, 2003 03:29 PM HISTORY OF SMOKING Smoke free 6 years [facility] Jan 02, 2002 08:56 AM HISTORY OF SMOKING [facility] Jan 02, 2002 08:56 AM QUIT TOBACCO USE > 7 YEARS AGO [facility] Jan 14, 2001 11:25 AM HISTORY OF SMOKING non smoker 4 years [facility] Encounter Notes: All associated encounter notes This section contains the clinical notes associated to the Encounter. Date/Time Encounter Note(s) Provider Source October 30, 2023 03:31 PM NEUROLOGY OUTPATIE NT NOTE: LOCAL TITLE: NEUROLOGY CLINIC NOTE STANDARD TITLE: NEUROLOGY OUTPATIENT NOTE DATE OF NOTE: OCTOBER 30, 2023@15:31 ENTRY DATE: OCTOBER 30, 2023@15:31:14 AUTHOR: GARRY ROCHA EXP COSIGNER: URGENCY: STATUS: COMPLETED Tele-Headache Progress Note The consented to telehealth services. Patient address and safety in case of emergency were confirmed. Patient's phone number and Emergency Contact phone number were confurmed In Attendence:1) 2)Provider CC:Headache Last Visit: Impression: 1-Migraines, somewhat atypical (sidelocked, some autonomic) [...] 1 hr 3-RTC 3 months Interval History: -states that he had a bad episode on 15 -sumatriptan 100mg is effective if taken early, with reduced headache severity -still taking nortriptyline -having headaches 1/week -taking lexapro and trazadone, Dr. Malgorzata anna -CPAP not working for JW, failed facemask, but using nasal cpap, has autotitrating CPAP - ROS: No new visual, auditory or cognitive issues, no new weakness or numbness, no chest pain, no belly pain, no shortness of breath, no melena, no heamtochezia, all others negative. PMHx/Problem List: Active problems - Computerized Problem List is the source for the followin. Binge eating behaviour 2. Insomnia 3. Anxiety 4. Depression 5. HTN - Hypertension (SCT 72134501) 6. Sleep apnea 7. Tinnitus 8. Cluster headache (SNOMED CT 991341195) 9. Calculus of Kidney 10. Chronic sinusitis 11. Obesity (SNOMED CT 711532962) Current Medication List: Active Outpatient Medications (including Supplies): Active Outpatient Medications Status 1) NORTRIPTYLINE HCL 25MG CAP TAKE ONE CAPSULE BY MOUTH ACTIVE (S) AT BEDTIME HEADACHE 2) SUMATRIPTAN SUCCINATE 100MG [...] patient Allergies: Patient has answered NKA Examination: Gen-NAD head-NCAT MS-alert, oriented, fluent, no overt agnosias, apraxias CN-pupils equal, gaze symmetric, non nystagmus, no ptosis Motor-normal bulk in uppers Coord-no head or hand tremor Impression: 1-Migraines, in setting of sleeep apnea, undergoing CPAP without improvement in EDS or sleep, but on nortriptyline 25mg HS with reduction in headache days from 12->4-8/month, and sumatriptan as effective abortive. Noted that patient is taking lexapro and trazadone from outside psychiatrist, patient will confer with psychiatrist if pamelor should continue to be taken with these SSRI/SNRIs, and will reach me via secure messaging if any changes to regimen are recommended. Recommendations: 1-nortriptyline 25mg HS 2-sumatriptan 100mg PO at onset, repeat in 1 hr 3-secure message if changes to above needed 4-RTC 4 months (X)Neurologic condition and management, including choice [...] List is the source for the followin. Binge eating behaviour 2. Insomnia 3. Anxiety 4. Depression 5. HTN - Hypertension (SCT 27999399) 6. Sleep apnea 7. Tinnitus 8. Cluster headache (SNOMED CT 091606503) 9. Calculus of Kidney 10. Chronic sinusitis 11. Obesity (SNOMED CT 857558566) Active Outpatient Medications (including Supplies): Active Outpatient Medications Status 1) NORTRIPTYLINE HCL 25MG CAP TAKE ONE CAPSULE BY MOUTH ACTIVE (S) AT BEDTIME HEADACHE 2) SUMATRIPTAN SUCCINATE 100MG [...] has answered NKA No Vitals Were Found /es/ Garry Rocha MD, MPH [id number] [facility] TelePain Lead Signed: 10/30/2023 16:02 GARRY ROCHA [facility]
--- OUTSIDE RECORDS SUMMARY | 2024-06-04 11:13 | XMS_ITS | Encounter Summary ---
Author Name [facility] [place] Address [address] [place] [address] Care Team Providers Care Computer Security Manager Name Role Phone DELIA CHRISTIANSEN Primary Care Provider [facility] Insurance Providers: All historical and current [...] Garner's Name Patient's Relationship to Policy Garner [facility] Apr 03, 2012 [id number] [phone] DIANE RASCON SPOUSE Selected Encounter This section includes the information on record at [place] for the Encounter. Date/Time Encounter Type Encounter Description Reason Provider Source October 30, 2023 03:30 PM OFFICE O/P EST MOD 30 MIN PAIN CLINIC ICD-10-CM G43.019 Migraine w/o aura, intractable, without status migrainosus GARRY ROCHA [facility] Encounter Template Text not used by [place] Assessments - Encounter Diagnoses This section includes the primary and secondary diagnoses documented for the Encounter. Date/Time Primary/Secondary Diagnosis Diagnosis Name Provider Source Nov 14, 2023 01:26 PM PRIMARY Migraine w/o aura, intractable, without status migrainosus GARRY ROCHA [facility] Plan of Treatment: Future Appointments (+ 6 months) and Future Tests (+/- 45 days) The Plan of Treatment section includes future care activities for the patient from [facility]. This section includes future appointments and future orders which are active, pending or scheduled. Future Appointments This section includes appointments that were scheduled to occur 6 months from the date of the Encounter, up to a maximum of 20 appointments. The data comes from all [place] treatment facilities. Appointment Date/Time Appointment Type Appointme nt Facility Name November 01, 2023 02:00 PM AMBULATORY - [facility]IATRY [facility] [place] [facility] Nov 15, 2023 02:00 PM AMBULATORY - PS[facility]IATRY [facility] [place] [facility] Nov 28, 2023 02:00 PM AMBULATORY - PS[facility]IATRY [facility] [place] [facility] Dec 02, 2023 03:30 PM AMBULATORY - MEDICINE [facility] [place] [facility] Dec 20, 2023 02:00 PM AMBULATORY - PS[facility]CHIATRY [facility] [place] [facility] Jan 17, 2024 02:00 PM AMBULATORY - PS[facility]CHIATRY [facility] [place] [facility] Jan 31, 2024 02:00 PM AMBULATORY - PS[facility]CHIATRY [facility] [place] [facility] Feb 11, 2024 02:30 PM AMBULATORY - NEUROLOGY [facility] [place] [facility] Feb 28, 2024 02:00 PM AMBULATORY - PS[facility]CHIATRY [facility] [place] [facility] Mar 09, 2024 03:30 PM AMBULATORY - MEDICINE [facility] [place] [facility] Mar 13, 2024 02:00 PM AMBULATORY - PS[facility]CHIATRY [facility] [place] [facility] Mar 24, 2024 11:00 AM AMBULATORY - MEDICINE [facility] [place] [facility] Mar 27, 2024 02:00 PM AMBULATORY - PS[facility]CHIATRY [facility] [place] [facility] Mar 31, 2024 02:30 PM AMBULATORY - NEUROLOGY [facility] [place] [facility] Mar 31, 2024 02:30 PM AMBULATORY - [place] [facility] Apr 01, 2024 08:30 AM AMBULATORY - PSYCHIATRY [facility] [place] [facility] Apr 24, 2024 02:00 PM AMBULATORY - PS[facility]CHIATRY [facility] [place] [facility] Encounter Notes: All associated encounter notes This section contains the clinical notes associated to the Encounter. Date/Time Encounter Note(s) Provider Source November 01, 2023 09:14 AM NEUROLOGY OUTPATIE NT NOTE: LOCAL TITLE: NEUROLOGY OUTPATIENT PROGRESS NOTE STANDARD TITLE: NEUROLOGY OUTPATIENT NOTE DATE OF NOTE: NOVEMBER 01, 2023@09:14 ENTRY DATE: NOVEMBER 01, 2023@09:14:12 AUTHOR: GARRY ROCHA EXP COSIGNER: URGENCY: STATUS: COMPLETED Clinical services provided by Dr. Garry Rocha via telehealth from the [facility] to the [facility] located in the [facility]. Clinical Service provided: f/u Service Delivery Method: VVC Length of Service:30 min Primary Diagnosis:Migraine, Intractable, with or without aura For a complete progress note, please see the [facility] Medical record (accessible through [facility]). /blair/ Garry Rocha MD, MPH [id number] [facility] TelePain Lead Signed: 11/01/2023 09:14 GARRY ROCHA [facility]
--- OUTSIDE RECORDS SUMMARY | 2024-06-04 11:14 | XMS_ITS ---
Author Name [facility] [place] Address [address] [place] [address] Care Team Providers Care Offal Separator Name Role Phone DELIA CHRISTIANSEN Primary Care Provider [facility] Insurance Providers: All historical and current [...] Garner's Name Patient's Relationship to Policy Garner [facility] Apr 03, 2012 [id number] [phone] DIANE RASCON SPOUSE Selected Encounter This section includes the information on record at [place] for the Encounter. Date/Time Encounter Type Encounter Description Reason Provider Source Feb 28, 2024 02:00 PM PSYTX W PT 45 MINUTES [facility] - IND ICD-10-CM F51.01 Primary insomnia TARIQ TRAN [facility] Encounter Template Text not used by [place] Assessments - Encounter Diagnoses This section includes the primary and secondary diagnoses documented for the Encounter. Date/Time Primary/Secondary Diagnosis Diagnosis Name Provider Source Feb 28, 2024 02:46 PM PRIMARY Primary insomnia KARSTEN FRANCIS [facility] [place] [facility] Feb 28, 2024 02:46 PM SECONDARY Depression, unspecified KARSTEN FRANCIS [facility] [place] [facility] Feb 28, 2024 02:46 PM SECONDARY Generalized anxiety disorder KARSTEN FRANCIS [facility] [place] [facility] Feb 28, 2024 02:46 PM SECONDARY Tinnitus, unspecified ear KARSTEN FRANCIS [facility] [place] [facility] Plan of Treatment: Future Appointments (+ 6 months) and Future Tests (+/- 45 days) The Plan of Treatment section includes future care activities for the patient from all [place] [facility] This section includes future appointments and future orders which are active, pending or scheduled. Future Appointments This section includes appointments that were scheduled to occur 6 months from the date of the Encounter, up to a maximum of 20 appointments. The data comes from all [place] treatment facilities. Appointment Date/Time Appointment Type Appointme nt Facility Name Mar 09, 2024 03:30 PM AMBULATORY - MEDICINE [facility] [place] [facility] Mar 13, 2024 02:00 PM AMBULATORY - PSYCHIATRY [facility] [place] [facility] Mar 24, 2024 11:00 AM AMBULATORY - MEDICINE [facility] [place] [facility] Mar 27, 2024 02:00 PM AMBULATORY - PS[facility]CHIATRY [facility] [place] [facility] Mar 31, 2024 02:30 PM AMBULATORY - NEUROLOGY [facility] [place] [facility] Mar 31, 2024 02:30 PM AM[place]ORY [place] [facility] Apr 01, 2024 08:30 AM AMBULATORY - PSYCHIATRY [facility] [place] [facility] Apr 24, 2024 02:00 PM AMBULATORY - PSYCHIATRY [facility] [place] [facility] May 04, 2024 03:00 PM AMBULATORY - PSYCHIATRY [facility] [place] [facility] May 15, 2024 02:00 PM AMBULATORY - PSYCHIATRY [facility] [place] [facility] May 25, 2024 03:00 PM AMBULATORY - PSYCHIATRY [facility] [place] [facility] Jun 12, 2024 02:00 PM AMBULATORY - PSYCHIATRY [facility] [place] [facility] Jun 23, 2024 03:30 PM AMBULATORY - PSYCHIATRY [facility] [place] [facility] Jul 07, 2024 01:30 PM AMBULATORY - [place]OLOGY [place] [facility] Jul 07, 2024 01:30 PM [facility] Active, Pending, and Scheduled Orders This section includes a listing of several types of active, pending, and scheduled orders, including clinic medications orders, diagnostic test orders, procedure orders and consult orders; where the start date of the order is 45 days before the date of the Encounter or 45 days after the date of theEncounter. The data comes from all [place] treatment facilities. Test Date/Time Test Type Test Details Facility Name Apr 07, 2024 10:17 AM Consult Order COMMUNITY CARE-OPTOMETRY ROUTINE EYE EXAM Cons Edge St[facility] Social History: Smoking Status (Most current) and Tobacco Use (All prior to encounter date) This section includes the most current, and the historical, smoking and tobacco- related health factors from the [place] facility where the Encounter took place. Current Smoking Status This section includes the most current smoking, or tobacco-related health factor, from the [place] facility where the Encounter took place. Date/Time Current Smoking Status Comment [facility] it Jan 09, 2023 05:09 PM VA-TOBACCO FOR[facility]ER [facility] Tobacco Use History This section includes a history of the smoking, or tobacco-related health factors, that were collected on or before the date of the Encounter. The data comes from the [place] facility where the Encounter took place. Date/Time Smoking Status/Tobac co Use Comment Facility Jan 09, 2023 05:09 PM VA-TOBACCO QUIT 15 YRS OR MORE [facility] [place] [facility] Jan 04, 2017 07:42 AM LIFETIME NON-TOBACCO USER [facility] [place] [facility] Dec 26, 2015 09:20 AM QUIT TOBACCO USE > 7 YEARS AGO quit in 1997 [facility] [place] [facility] October 27, 2003 03:29 PM HISTORY OF SMOKING Smoke free 6 years [facility] [place] [facility] Jan 02, 2002 08:56 AM [facility]MOKING [facility] [place] [facility] Jan 02, 2002 08:56 AM QUIT TOBACCO USE > 7 YEARS AGO [facility] Jan 14, 2001 11:25 AM HISTORY OF SMOKING non smoker 4 years [facility] [place] [facility] Encounter Notes: All associated encounter notes This section contains the clinical notes associated to the Encounter. Date/Time Encounter Note(s) Provider Source Feb 28, 2024 02:41 PM TELEHEALTH NOTE: LOCAL TITLE: [facility] PSYCHOLOGY NOTE STANDARD TITLE: TELEHEALTH NOTE DATE OF NOTE: FEB 28, 2024@14:41 ENTRY DATE: FEB 28, 2024@14:42 AUTHOR: KARSTEN FRANCIS COSIGNER: TARIQ TRAN URGENCY: STATUS: COMPLETED [place] VIDEO CONNECT PSYCHOLOGY NOTE Has ADDENDA This case is supervised by Dr. Tariq Tran, staff psychologist in the [facility]. Diagnosis, treatment plan, and response to care are reviewed on an ongoing basis in weekly individual supervision meetings. IDENTITY VERIFICATION [X] Patient Name [X] Visual recognition [ ] Birthdate [ ] Social Security # This was a 40 minute individual psychotherapy appointment on 02/28/2024 in the treatment of depression, anxiety and insomnia. 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 He identified having a plan of activities for his whole weekend (chore type things), and noted looking forward to not having any downtime for his mind to go to negative places. We processed the impact of a recent period of convelesence, and the 's observation that when he is forced to stop and rest, his anxiety tends to increase. We went over the options for the [place] to work with audiology on tinnitus related things. We discussed the sound strategy for sleep (usually multiple sources of white noise), and experiemented with other possibilities. ASSESSMENT: The [place] was on time to the appointment and was fully engaged. Grooming and dress were WNL. Gross motor function was WNL. Mood was euthymic and affect was congruent. Speech was normal in rate, tone and prosody. Insight and judgement were intact. There was no evidence of A/VH or thought disorder. No SI. PLAN: will RTC for individual psychotherapy on 03/13/2024 with provider, Dr. Karsten Francis. [place] Video Connect (VVC) Standard Documentation VVC Clinician Resources Only: E911 (Emergency Call Relay Center): [phone] [facility] Crisis Line - 928 then press #1. [facility] Suicide Coordinator [phone], Ext. [phone]; Back-up Ext. [phone] [place] Police, [place] [phone] Introduction: Visit is being conducted by [place] Video Connect. [place] identified with 2 identifiers: [X] Full Name [X] Date of [ ] [place] ID Card Emergency Plan: confirmed and/or provided the following information in case of emergency or technology failure. PATIENT PHONE - PHONE NUMBER [CELLULAR] - Is patient phone number correct, if not, enter below: 's phone number: DIANE RASCON [address], [place], [address] [place]'s present location and address for appointment: Home address above. [place]'s emergency contact name and phone number: Wilda Rascon reported that location is private and safe: Yes Informed Consent: informed of the risks and benefits of Telehealth video care. [place] has the right to refuse video services. If refuses video visit, a [id number] visit will be scheduled. verbalized consent for this video visit: Yes [place] provided consent for any other persons present for visit: N/A If yes, who and relationship to patient: Secure visit: Visit was locked for security and privacy:Yes /blair/ KARSTEN FRANCIS, PHD [facility] Post-Doctoral Psychology Trainee Signed: 02/28/2024 14:46 /blair/ TARIQ TRAN PSYD PSYCHOLOGIST Cosigned: 02/28/2024 17:15 02/28/2024 ADDENDUM STATUS: COMPLETED I have reviewed this case and concur with the clinical impressions and recommendations made by this trainee who is under my clinical supervision. /blair/ TARIQ TRAN PSYD PSYCHOLOGIST Signed: 02/28/2024 17:16 [facility]EN FRANCIS [facility]
--- OUTSIDE RECORDS SUMMARY | 2024-06-04 11:14 | XMS_ITS | Encounter Summary ---
Author Name [facility] Address [address] [place] [address] Care Team Providers Care Mis Specialist Name Role Phone DELIA CHRISTIANSEN Primary Care Provider [facility] Insurance Providers: All historical and current Section Date Range: From patient's date of to the date document was created. This section includes the names of all active insurance providers for the patient. Insurance Provider Type of Coverage Plan Name Start of Policy Coverage End of Policy Coverage Group Number Member ID Insurance Provider's Telephone Number Policy Garner's Name Patient's Relationship to Policy Garner [facility] Apr 03, 2012 [id number] DIANE RASCON SPOUSE Selected Encounter This section includes the information on record at [place] for the Encounter. Date/Time Encounter Type Encounter Description Reason Pro vider Source Sep 25, 2023 01:53 PM Outpatient Encounter ADMIN PAT ACTIVTIES (MASNONCT) IHE Encounter Template Text not used by [place] Plan of Treatment: Future Appointments (+ 6 [...] 20 appointments. The data comes from all [place] treatment facilities. Appointment Date/Time Appointment Type Appointme nt Facility Name October 04, 2023 02:00 PM AMBULATORY - [facility] October 18, 2023 02:00 PM AMBULATORY [facility] October 30, 2023 03:30 PM AMBULATORY - NONE [facility] October 30, 2023 03:30 PM AMBULATORY - [facility]UROLOGY [facility] November 01, 2023 02:00 PM AMBULATORY [facility]AT[facility] Nov 15, 2023 02:00 PM AMBULATORY - [facility]AT[facility] Nov 28, 2023 02:00 PM AMBULATORY - PS[facility]IAT[facility] Dec 02, 2023 03:30 PM AM[facility]ULATORY [facility]ICINE [facility] Dec 20, 2023 02:00 PM AMBULATORY - PS[facility]CHIATRY [facility] Jan 17, 2024 02:00 PM AMBULATORY - PS[facility]CHIATRY [facility] Jan 31, 2024 02:00 PM AMBULATORY - PS[facility]CHIATRY [facility] Feb 11, 2024 02:30 PM AMBULATORY - NEUROLOGY [facility] Feb 28, 2024 02:00 PM AMBULATORY - PSYCHIATRY [facility] Mar 09, 2024 03:30 PM AMBULATORY [facility] MEDICINE [facility] Mar 13, 2024 02:00 PM AMBULATORY - PSYCHIATRY [facility] Mar 24, 2024 11:00 AM AMBULATORY - MEDICINE [facility] Lab Results: +/- 30 days of the encounter This section includes the Chemistry and Hematology Lab Results on record with [place] for the patient. Radiology Reports and Pathology Reports are provided separately, in subsequent sections. Lab Results This section contains the Chemistry/Hematology Results that were resulted 30 days before or 30 daysafter the date of the Encounter. Date/Time Source Result Type Result - Unit Interpretation Reference Range Comment Aug 27, 2023 09:19 AM [facility] FOLATE Specimen Type: SERUM No comment entered. Ordering Provider: THERESA CHRISTIANSEN AM Report Released Date/Time: Jun 25, 2023 08:42 AM Reporting Lab: [facility] [address] [facility] [address] Performing Lab: [facility] [address] [facility] [address] FOLATE 11.13 ng/mL >5.2 Aug 27, 2023 09:19 AM [facility] [place] [facility] THYROID T4 FREE(FT4) Specimen Type: SERUM No comment entered. Ordering Provider: THERESA CHRISTIANSEN AM Report Released Date/Time: Jun 25, 2023 08:42 AM Reporting Lab: [facility] [place] [facility] [address] [facility] [address] Performing Lab: [facility] [place] [facility] [address] [facility] [address] THYROID T4 FREE(FT4) 0.90 ng/dL 0.6-1.6 Aug 27, 2023 09:19 AM [facility] VITAMIN D (25-OH) Specimen Type: SERUM No comment entered. Ordering Provider: THERESA CHRISTIANSEN AM Report Released Date/Time: Jun 25, 2023 08:42 AM Reporting Lab: [facility] [place] [facility] [address] [facility] [address] Performing Lab: [facility] [address] [address] VITAMIN D (25-OH) 16 ng/mL L 20-50 Aug 27, 2023 09:19 AM [facility] CBC Specimen Type: BLOOD No comment entered. Ordering Provider: THERESA CHRISTIANSEN AM Report Released Date/Time: Jun 25, 2023 08:42 AM Reporting Lab: [facility] [place] [facility] [address] [facility] [address] Performing Lab: [facility] [place] [address] [address] WBC 5.18 10*3/uL 4.50-11.00 RBC 5.10 10*6/uL 4.23-5.66 HGB 14.3 g/dL 12.8-17 HCT 43.5 39.2-50.4 MCV 85.3 fL 82-99 MCHC 32.9 g/dL 30.8-35.1 PLT 179 10*3/uL 140-360 RDW-CV 12.8 12.0-16.0 MCH 28.0 pg 26.2-32.6 Aug 27, 2023 09:19 AM [facility] VITAMIN B12 Specimen Type: SERUM No comment entered. Ordering Provider: THERESA CHRISTIANSEN AM Report Released Date/Time: Jun 25, 2023 08:42 AM Reporting Lab: [address] [address] Performing Lab: [address] [address] VITAMIN B12 469 pg/mL 200-900 Aug 27, 2023 09:19 AM [facility] MAGNESIUM Specimen Type: SERUM No comment entered. Ordering Provider: THERESA CHRISTIANSEN AM Report Released Date/Time: Jun 25, 2023 08:42 AM Reporting Lab: [facility] [address] [facility] [address] Performing Lab: [address] [address] MAGNESIUM 2.0 mg/dL 1.6-2.6 Aug 27, 2023 09:19 AM [facility] HEMOGLOBIN A1C PANEL Specimen Type: BLOOD Comment: [...] Jun 25, 2023 08:42 AM Reporting Lab: [address] [address] Performing Lab: [address] [address] HEMOGLOBIN A1C 5.4 4.0-5.6 Aug 27, 2023 09:19 AM [facility] TSH Specimen Type: SERUM No comment entered. Ordering Provider: THERESA CHRISTIANSEN AM Report Released Date/Time: Jun 25, 2023 08:42 AM Reporting Lab: [address] [address] Performing Lab: [address] [address] TSH 1.38 u[IU]/mL 0.35-5.00 Aug 27, 2023 09:19 AM [facility] PSA Specimen Type: SERUM No comment entered. Ordering Provider: THERESA CHRISTIANSEN AM Report Released Date/Time: Jun 25, 2023 08:42 AM Reporting Lab: [address] [address] Performing Lab: [address] [address] PSA 1.35 ng/mL 0.00-4.00 Aug 27, 2023 09:19 AM [facility] BASIC METABOLIC PANEL (fasting) Specimen Type: SERUM No comment entered. Ordering Provider: THERESA CHRISTIANSEN AM Report Released Date/Time: Jun 25, 2023 08:42 AM Reporting Lab: [address] [address] Performing Lab: [address] [address] UREA NITROGEN 15 mg/dL 7-25 GLUCOSE 95 mg/dL 65-100 SODIUM 142 mmol/L 135-145 POTASSIUM 4.3 mmol/L 3.5-5.0 CHLORIDE 107 mmol/L 100-110 CO2 25 meq/L 20-30 CREATININE, Serum 0.68 mg/dL 0.50-1.40 eGFR(CKD-EPI 2020) >90 mL/min >60 Aug 27, 2023 09:19 AM [facility] LIVER FUNCTION Specimen Type: SERUM No comment entered. Ordering Provider: THERESA CHRISTIANSEN AM Report Released Date/Time: Jun 25, 2023 08:42 AM Reporting Lab: [facility] [address] [facility] [address] Performing Lab: [address] [address] PROTEIN,TOTAL 6.2 g/dL 6.0-8.3 ALBUMIN 3.6 g/dL 3.5-5.0 ALKALINE PHOSPHATASE 75 U/L 40-150 AST 10 U/L 5-34 ALT 15 U/L BILIRUBIN, TOTAL 0.9 mg/dL 0.2-1.2 Aug 27, 2023 09:19 AM [facility] LIPID PANEL FASTING Specimen Type: SERUM No comment entered. Ordering Provider: THERESA CHRISTIANSEN AM Report Released Date/Time: Jun 25, 2023 08:42 AM Reporting Lab: [address] [address] Performing Lab: [address] [address] CHOLESTEROL 183 mg/dL TRIGLYCERIDE 112 mg/dL 0-150 LDL calculated 120 mg/dL 0-129 CHOL/HDL 4.5 HDL CHOLESTEROL 41 mg/dL 40-60 Social History: Smoking Status (Most current) and Tobacco Use (All prior to encounter date) This section includes the most current, and the historical, smoking and tobacco- related health factors from the [place] facility where the Encounter took place. Current Smoking Status This section includes the most current smoking, or tobacco-related health factor, from the [place] facility where the Encounter took place. Date/Time Current Smoking Status Comment [facility] Jan 09, 2023 05:09 PM [facility]-TOBACCO FORMER USER [facility] Tobacco Use History This section includes a history of the smoking, or tobacco-related health factors, that were collected on or before the date of the Encounter. The data comes from the [place] facility where the Encounter took place. Date/Time Smoking Status/Tobac co Use Comment Facility Jan 09, 2023 05:09 PM [place]-TOBACCO QUIT 15 YRS OR MORE [facility] Jan 04, 2017 07:42 AM LIFETIME [facility]BACCO USER [facility] Dec 26, 2015 09:20 AM QUIT TOBACCO USE > 7 YEARS AGO quit [facility] 1997 [facility] October 27, 2003 03:29 PM HISTORY OF SMOKING Smoke free 6 years [facility] Jan 02, 2002 08:56 AM HISTORY OF SMOKING [facility] Jan 02, 2002 08:56 AM QUIT TOBACCO USE > 7 YEARS AGO [facility] Jan 14, 2001 11:25 AM HISTORY OF SMOKING non smoker 4 years [facility] Encounter Notes: All associated encounter notes This section contains the clinical notes associated to the Encounter. Date/Time Encounter Note(s) Provider Source Sep 25, 2023 01:53 PM ADMINISTRATIVE NOT E: LOCAL TITLE: ADMINISTRATIVE NOTE STANDARD TITLE: ADMINISTRATIVE NOTE DATE OF NOTE: SEP 25, 2023@13:53 ENTRY DATE: SEP 25, 2023@13:53:10 AUTHOR: DURAN IRBYIGNER: URGENCY: STATUS: COMPLETED TELEPHONE CALL: CALLED ON Sep@13:53 PHONE NUMBER [[id number]] - Appointment was scheduled for: Nov@14:[address] ROCHA and is CANCELLED BY CLINIC == (X) SPOKE With He/She Rebooked Appointment Per Below Left Voice Mail Unable To Speak Or Leave Voice Message Letter Sent To Mailing Address On File Comments: [place] can call the clinic at ext. [phone] == Upcoming Appointments: 10/04/2023 14:00 CWM/NO/VVC/MHC/PENNY 10/18/2023 14:00 CWM/NO/VVC/MHC/PENNY 10/30/2023 15:30 CWM-V01 [facility] PAIN MD ADM 11/01/2023 14:00 CWM/NO/VVC/MHC/PENNY /es/ DURAN IRBY ADVANCED LOAN TELLER Signed: 09/25/2023 13:53 DURAN IRBY [facility]
--- OUTSIDE RECORDS SUMMARY | 2024-06-04 11:14 | XMS_ITS ---
Author Name [facility] [place] Address [address] [place] [address] Care Team Providers Care Federal Agent Name Role Phone VICTORINO BUCKNER Primary Care Provider [facility] Insurance Providers: All historical and current Section Date Range: From patient's date of to the date document was created. This section includes the names of all active insurance providers for the patient. Insurance Provider Type of Coverage Plan Name Start of Policy Coverage End of Policy Coverage Group Number Member ID Insurance Provider's Telephone Number Policy Garner's Name Patient's Relationship to Policy Garner [facility] Apr 03, 2012 [id number] DIANE RASCON SPOUSE Selected Encounter This section includes the information on record at [place] for the Encounter. Date/Time Encounter Type Encounter Description Reason Provider Source Dec 02, 2023 03:30 PM OFFICE O/P EST LOW 20 MIN PRIMARY CARE/MEDICINE ICD-10-CM I10 Essential (primary) hypertension LAURE BUCKNER [place] Encounter Template Text not used by [place] Assessments - Encounter Diagnoses This section includes the primary and secondary diagnoses documented for the Encounter. Date/Time Primary/Secondary Diagnosis Diagnosis Name Provider Source Dec 02, 2023 03:48 PM PRIMARY Essential (primary) hypertension [facility]CK[facility] Dec 02, 2023 03:48 PM SECONDARY Contact with and exposure to other hazardous substances BUCKNER,WILL BRANDO [place] [facility] [place] [facility] Dec 02, 2023 03:48 PM SECONDARY Encounter for immunization CESAR OSBORNE [place] [facility] [place] [facility] Dec 02, 2023 03:48 PM SECONDARY Obesity, unspecified BUCKNER,WILL BRANDO J [place] [facility] [place] [facility] Dec 02, 2023 03:48 PM SECONDARY Overweight BUCKNER,WILL BRANDO J [place] [facility] [place] [facility] Plan of Treatment: Future Appointments (+ 6 months) and Future Tests (+/- 45 days) The Plan of Treatment section includes future care activities for the patient [facility] [place] [facility] This section includes future appointments and future orders which are active, pending or scheduled. Future Appointments This section includes appointments that were scheduled to occur 6 months from the date of the Encounter, up to a maximum of 20 appointments. The data comes from all [place] treatment facilities. Appointment Date/Time Appointment Type Appointme nt Facility Name Dec 20, 2023 02:00 PM AMBULATORY - [facility]IATRY [facility] [place] [facility] Jan 17, 2024 02:00 PM AMBULATORY - PS[facility]IATRY [facility] [place] [facility] Jan 31, 2024 02:00 PM AMBULATORY - PS[facility]IATRY [facility] [place] [facility] Feb 11, 2024 02:30 PM AMBULATORY - NEUROLOGY [facility] [place] [facility] Feb 28, 2024 02:00 PM AMBULATORY - PS[facility]CHIATRY [facility] [place] [facility] Mar 09, 2024 03:30 PM AMBULATORY - MEDICINE [facility] [place] [facility] Mar 13, 2024 02:00 PM AMBULATORY - PSYCHIATRY [facility] [place] [facility] Mar 24, 2024 11:00 AM AMBULATORY - MEDICINE [facility] [place] [facility] Mar 27, 2024 02:00 PM AMBULATORY - PSYCHIATRY [facility] [place] [facility] Mar 31, 2024 02:30 PM AMBULATORY - NEUROLOGY [facility] [place] [facility] Mar 31, 2024 02:30 PM AMBULATORY - NEUROLOGY [facility] Apr 01, 2024 08:30 AM AMBULATORY - PSYCHIATRY [facility] [place] [facility] Apr 24, 2024 02:00 PM AMBULATORY - PS[place]CHIATRY [place] [facility] [place] [facility] May 04, 2024 03:00 PM AMBULATORY - PSYCHIATRY [place] [facility] [place] [facility] May 15, 2024 02:00 PM AMBULATORY - PS[place]CHIATRY [place] [facility] [place] [facility] May 25, 2024 03:00 PM [facility] Vital Signs: All taken on the encounter date This section contains inpatient and outpatient Vital Signs collected on the date of the Encounter. Date/Time Temperature Pulse Blood Pressure Respiratory Rate SP02 Pain Height Weight Body Mass Index Source Dec 02, 2023 03:14 PM 97.6 93 135/89 20 96 2 72 386 52 [facility] Immunizations: All administered on the encounter date This section contains immunizations associated to the Encounter. Immunization Series Date Issued Reaction Comments TDAP Dec 02, 2023 ZOSTER RECOMBINANT Dec 02, 2023 Social History: Smoking Status (Most current) and Tobacco Use (All prior to encounter date) This section includes the most current, and the historical, smoking and tobacco- related health factors from the [place] facility where the Encounter took place. Current Smoking Status This section includes the most current smoking, or tobacco-related health factor, from the [place] facility where the Encounter took place. Date/Time Current Smoking Status Comment [facility] Jan 09, 2023 05:09 PM VA-TOBACCO FORMER USER [facility] Tobacco Use History This section includes a history of the smoking, or tobacco-related health factors, that were collected on or before the date of the Encounter. The data comes from the [place] facility where the Encounter took place. Date/Time Smoking Status/Tobac co Use Comment Facility Jan 09, 2023 05:09 PM VA-TOBACCO QUIT 15 YRS OR MORE [facility] [place] [facility] Jan 04, 2017 07:42 AM LIFETIME NON-TOBACCO USER [facility] [facility] Dec 26, 2015 09:20 AM QUIT TOBACCO USE > 7 YEARS AGO quit in 1997 [facility] October 27, 2003 03:29 PM HISTORY OF SMOKING Smoke free 6 years [facility] Jan 02, 2002 08:56 AM HISTORY OF SMOKING [facility] Jan 02, 2002 08:56 AM QUIT TOBACCO USE > 7 YEARS AGO [facility] Jan 14, 2001 11:25 AM HISTORY OF SMOKING non smoker 4 years [facility] Encounter Notes: All associated encounter notes This section contains the clinical notes associated to the Encounter. Date/Time Encounter Note(s) Provider Source Dec 02, 2023 03:54 PM PREVENTIVE MEDICINE NURSING NOTE: LOCAL TITLE: CLINICAL REMINDERS/NURSING STANDARD TITLE: PREVENTIVE MEDICINE NURSING NOTE DATE OF NOTE: DEC 02, 2023@15:54 ENTRY DATE: DEC 02, 2023@15:54:13 AUTHOR: LOREN OSBORNE COSIGNER: URGENCY: STATUS: COMPLETED Tdap Immunization: Administered: TDAP Date Administered: Dec 02, 2023 15:30 Data Report Analyst: GLAXOSMITHKLINE Lot: [id number] Exp Date: Jan 08, 2026 ND: [id number] Admin Route/Site: INTRAMUSCULAR/LEFT DELTOID Dosage: 0.5mL Vaccine Information Statement(s): TDAP (TETANUS, DIPHTHERIA, PERTUSSIS) VACCINE VIS Jan 06, 2021 ([place]) Order By: Policy Administered By: Loren Osborne Vaccine Information Sheet (VIS) was given to the patient/caregiver, education regarding adverse reactions was discussed, as well as barriers to learning, if any, were acknowledged. Herpes Zoster (Shingles) Vaccine: Administered: ZOSTER RECOMBINANT Date Administered: Dec 02, 2023 15:30 Series: Partially complete Data Report Analyst: GLAXWilmar IndustriesINE Lot: [id number] Exp Date: Nov 09, 2025 NDC: [id number] Admin Route/Site: INTRAMUSCULAR/RIGHT DELTOID Dosage: 0.5mL Vaccine Information Statement(s): RECOMBINANT ZOSTER VACCINE VIS Jul 07, 2021 ([place]) Order By: Policy Administered By: Loren Osborne Vaccine Information Sheet (VIS) was given to the patient/caregiver, education regarding adverse reactions was discussed, as well as barriers to learning, if any, were acknowledged. /blair/ Loren Osborne MSN RN CNL Primary Care RN Signed: 12/02/2023 16:18 LOREN OSBORNE [facility] [place] [facility] Dec 02, 2023 03:41 PM PRIMARY CARE NURSE PRACTITIONER OUTPATIENT NOTE: LOCAL TITLE: NURSE PRACTITIONER OUTPATIENT NOTE STANDARD TITLE: PRIMARY CARE NURSE PRACTITIONER OUTPATIENT NOTE DATE OF NOTE: DEC 02, 2023@15:41 ENTRY DATE: DEC 02, 2023@15:41:52 AUTHOR: VICTORINO BUCKNER COSIGNER: URGENCY: STATUS: COMPLETED Chief complaint: Patient is a 53 year old [place]. HPI: Pleasant male here to follow up. Feeling well. Allergies: Patient has answered NKA The following VA and Non-VA meds were reconciled with patient. The patient was educated on the use of the medications including indication and side effects. Active and Recently Outpatient Medications (excluding Supplies): Active Outpatient Medications Status 1) NORTRIPTYLINE HCL 25MG CAP TAKE ONE CAPSULE BY MOUTH ACTIVE AT BEDTIME HEADACHE 2) SUMATRIPTAN SUCCINATE 100MG TAB TAKE ONE TABLET BY ACTIVE (S) MOUTH DIRECTED FOR MIGRAINE HEADACHE AT ONSET OF HEADACHE; MAY REPEAT IN 2 HOURS IF FIRST DOSE IS NOT EFFECTIVE Pending Outpatient Medications Status 1) CHOLECALCIF 50MCG (D3-2,000UNIT) TAB TAKE ONE TABLET PENDING BY MOUTH ONCE DAILY FOR VITAMIN SUPPLEMENTATION Active Non-VA Medications Status 1) Non-VA ESCITALOPRAM OXALATE 20MG TAB 10MG BY MOUTH ACTIVE ONCE DAILY 2) Non-VA TRAZODONE HCL TAB 100 MG TO 200 MG BY MOUTH AT ACTIVE BEDTIME 5 Total Medications Review of Systems: Constitutional: (-)for Fevers, chills, weakness, nights sweats On examination: 97.6 F [36.4 C] (12/02/2023 15:14)135/89 (12/02/2023 15:14)93 (12/02/2023 15:14) 20 (12/02/2023 15:14)2 (12/02/2023 15:14)BMI: 52.5386 lb [175.09 kg] (12/02/2023 15:14) [place] is alert and oriented X3 Cardiovasc: 2plus carotids without bruits, no JVD Heart Reguler rate and rhythm NL S1S2 no S3 or murmur Respiration: Normal respiratory effort, lungs clear ABD: Benign normal active bowel sounds no HSM no rebound or referred pain EXT: no clubbing, edema, or cyanosis LAB RESULTS LAST 1440 HRS - NONE FOUND All diagnostics from past month were reviewed with patient. Assessment/plan: Active problems - Computerized Problem List is the source for the followin. obesity - he was interested in medication assisted wt loss howerver at present, he does not have the time to complete MOVE. 2. HTN - Hypertension ([facility] [id number]) - Repeat 132/84 3. vit d deficiency - will start supplement Health Care Maintenance: [facility] and TDAP given in clinic today. Review of medial record = 5mins Time spent with Patient including shared decision making = 20 mins Post visit documentation = 5mins Total time = 30 mins Follow up visit in 12 mos. Alert to PACT RN - Labs as necessary to address clinical status. 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 /caregiver has no health or medical concerns related to their concern of environmental exposure. No questions at this time [place]/caregiver was informed of local points of contact. Contact information for local resources: Benefits/Claim for Disability Compensation Questions:National VBA [place] Healthcare Enrollment: [facility] Eligibility direct dialed at [phone]: [facility] ext [phone] The following connections were provided to the [place]/caregiver: No connections needed at this time Avg Risk Colorectal Cancer Screen: AVERAGE RISK colorectal cancer screening is due based on information available to this clinical reminder Medication Reconciliation: Outpatient: Has the patient been taking medications as documented in the EMLR? YES: The patient has been taking medications as documented in the EMLR. Essential Medication List for Review used to complete this medication reconciliation. INCLUDED IN THIS LIST: Alphabetical list of active outpatient prescriptions dispensed from this [place] (local) and dispensed from another [place] or [place] facility (remote) as well as inpatient orders (local, pending and active), local clinic medications, locally documented non-VA medications, and local prescriptions that have or been discontinued in the past 90 days. - All changes in medications, including all non-VA/Herbal/OTC medications were entered into CPRS. - If there were any medications the patient should no longer take, they were discontinued. - The patient/caregiver was instructed to update this list, discard old lists, and take this list to the next appointment, whether with a VA or non-VA provider. /blair/ Victorino Buckner DNP, OSD CLERK-BC, CNL Primary Care Nurse Practitioner Signed: 12/02/2023 15:47 VICTORINO BUCKNER [place] [facility]
--- OUTSIDE RECORDS SUMMARY | 2024-06-04 11:14 | XMS_ITS ---
Author Name [facility] [place] Organization [facility] [place] Address [address] [place] [address] Care Team Providers Care Area Operations Director Name Role Phone DELIA CHRISTIANSEN Primary Care [...] Garner's Name Patient's Relationship to Policy Garner [facility] Apr 03, 2012 [id number] [phone] DIANE RASCON SPOUSE Selected Encounter This section includes the information on record at [place] for the Encounter. Date/Time Encounter Type Encounter Description Reason Pro vider Source Jan 03, 2024 02:00 PM Outpatient Encounter [facility] Encounter Template Text not used by [place] Plan of Treatment: Future Appointments (+ 6 months) and Future Tests (+/- 45 days) The Plan of Treatment section includes future care activities for the patient from all [place] treatmentfacilities. This section includes future appointments and future orders which are active, pending or scheduled. Future Appointments This section includes appointments that were scheduled to occur 6 months from the date of the Encounter, up to a maximum of 20 appointments. The data comes from all [place] treatment facilities. Appointment Date/Time Appointment Type Appointme nt Facility Name Jan 17, 2024 02:00 PM AMBULATORY - PS[facility]IATRY [facility] [place] [facility] Jan 31, 2024 02:00 PM AMBULATORY - PSYCHIATRY [facility] [place] [facility] Feb 11, 2024 02:30 PM AMBULATORY - NEUROLOGY [facility] [place] [facility] Feb 28, 2024 02:00 PM AMBULATORY - PSYCHIATRY [facility] [place] [facility] Mar 09, 2024 03:30 PM AMBULATORY - MEDICINE [facility] [place] [facility] Mar 13, 2024 02:00 PM AMBULATORY - PS[facility]CHIATRY [facility] [place] [facility] Mar 24, 2024 11:00 AM AMBULATORY - MEDICINE [facility] [place] [facility] Mar 27, 2024 02:00 PM AMBULATORY - PSYCHIATRY [facility] [place] [facility] Mar 31, 2024 02:30 PM AMBULATORY - NEUROLOGY [facility] [place] [facility] Mar 31, 2024 02:30 PM AMBULATORY - [facility]OLOGY [facility] Apr 01, 2024 08:30 AM AMBULATORY - PSYCHIATRY [facility] [place] [facility] Apr 24, 2024 02:00 PM AMBULATORY - PSYCHIATRY [facility] [place] [facility] May 04, 2024 03:00 PM AMBULATORY - PSYCHIATRY [facility] [place] [facility] May 15, 2024 02:00 PM AMBULATORY - PSYCHIATRY [facility] [place] [facility] May 25, 2024 03:00 PM AMBULATORY - PSYCHIATRY [facility] [place] [facility] Jun 12, 2024 02:00 PM AMBULATORY - PSYCHIATRY [facility] [place] [facility] Jun 23, 2024 03:30 PM AMBULATORY - PSYCHIATRY [facility] [place] [facility] Social History: Smoking Status (Most current) and [...] alcocer Jan 09, 2023 05:09 PM VA-TOBACCO QUIT 15 YRS OR MORE [facility] Tobacco Use History This section includes a history of the smoking, or tobacco-related health factors, that were collected on or before the date of the Encounter. The data comes from the [place] facility where the Encounter took place. Date/Time Smoking Status/Tobac co Use Comment Facility Jan 09, 2023 05:09 PM VA-TOBACCO QUIT 15 YRS OR MORE [facility] Jan 04, 2017 07:42 AM LIFETIME NON-TOBACCO USER [facility] Dec 26, 2015 09:20 AM QUIT TOBACCO USE > 7 YEARS AGO quit in 1997 [facility] October 27, 2003 03:29 PM HISTORY OF SMOKING Smoke free 6 years [facility] Jan 02, 2002 08:56 AM HISTORY OF SMOKING [facility] Jan 02, 2002 08:56 AM QUIT TOBACCO USE > 7 YEARS AGO [facility] Jan 14, 2001 11:25 AM HISTORY OF SMOKING non smoker 4 years [facility] Encounter Notes: All associated encounter notes This section contains the clinical notes associated to the Encounter. Date/Time Encounter Note(s) Provider Source Jan 03, 2024 03:33 PM ADMINISTRATIVE NOT E: LOCAL TITLE: ADMINISTRATIVE NOTE STANDARD TITLE: ADMINISTRATIVE NOTE DATE OF NOTE: JAN 03, 2024@15:33 ENTRY DATE: JAN 03, 2024@15:33:41 AUTHOR: LEO CAMEJO EXP COSIGNER: URGENCY: STATUS: COMPLETED TW spoke with and let him know his appt. was cancelled. /blair/ LEO CAMEJO MITER OPERATOR Signed: 01/03/2024 15:34 LEO CAMEJO [facility]
--- OUTSIDE RECORDS SUMMARY | 2024-06-04 11:14 | XMS_ITS ---
Author Name [facility] [place] [facility] [place] Address [address] [place] [id number] Care Team Providers Care Catalyst Impregnator Name Role Phone DELIA CHRISTIANSEN [facility] Insurance Providers: All historical and current Section [...] Name Patient's Relationship to Policy Garner [facility] Apr 03, 2012 [id number] [phone] [id number] [phone] DIANE RASCON SPOUSE Selected Encounter This section includes the information on record at [place] for the Encounter. Date/Time Encounter Type Encounter Description Reason Provider Source Mar 13, 2024 02:00 PM PSYTX W PT 45 MINUTES [facility] - IND ICD-10-CM F41.1 Generalized anxiety disorder ISRAEL VIEYRA [place] Encounter Template Text not used by [place] Assessments - Encounter Diagnoses This section includes the primary and secondary diagnoses documented for the Encounter. Date/Time Primary/Secondary Diagnosis Diagnosis Name Provider Source Mar 13, 2024 03:01 PM PRIMARY Generalized anxiety disorder KARSTEN FRANCIS [facility] [place] [facility] Mar 13, 2024 03:01 PM SECONDARY Depression, unspecified KARSTEN FRANCIS [facility] [place] [facility] Mar 13, 2024 03:01 PM SECONDARY Sleep apnea, unspecified KARSTEN FRANCIS [facility] [place] [facility] Plan of Treatment: Future Appointments (+ 6 months) and Future Tests (+/- 45 days) The Plan of Treatment section includes future care activities for the patient [facility] [place] [facility] This section includes future appointments and future orders which are active, pending or scheduled. Future Appointments This section includes appointments that were scheduled to occur 6 months from the date of the Encounter, up to a maximum of 20 appointments. The data comes from all [place] treatment facilities. Appointment Date/Time Appointment Type Appointme nt Facility Name Mar 24, 2024 11:00 AM AMBULATORY - MEDICINE [place] [facility] [place] [facility] Mar 27, 2024 02:00 PM AMBULATORY - PSYCHIATRY [place] [facility] [place] [facility] Mar 31, 2024 02:30 PM AMBULATORY - NEUROLOGY [facility] [place] [facility] Mar 31, 2024 02:30 PM AMBULATORY - [facility]UROLOGY [facility] Apr 01, 2024 08:30 AM AMBULATORY - PSYCHIATRY [place] [facility] [place] [facility] Apr 24, 2024 02:00 PM AMBULATORY - PSYCHIATRY [facility] [place] [facility] May 04, 2024 03:00 PM AMBULATORY - PSYCHIATRY [facility] [place] [facility] May 15, 2024 02:00 PM AMBULATORY - PSYCHIATRY [facility] [place] [facility] May 25, 2024 03:00 PM AMBULATORY - PSYCHIATRY [facility] [place] [facility] Jun 12, 2024 02:00 PM AMBULATORY - PSYCHIATRY [facility] [place] [facility] Jun 23, 2024 03:30 PM AMBULATORY - PSYCHIATRY [place] [facility] [place] [facility] Jul 07, 2024 01:30 PM AMBULATORY - [place] [facility] Jul 07, 2024 01:30 PM AMBULATORY - NEUROLOGY [place] [facility] [place] [facility] Active, Pending, and Scheduled Orders This section includes a listing of several types of active, pending, and scheduled orders, including clinic medications orders, diagnostic test orders, procedure orders and consult orders; where the start date of the order is 45 days before the date of the Encounter or 45 days after the date of theEncounter. The data comes from all [place] treatment facilities. Test Date/Time Test Type Test Details Facility Name Apr 07, 2024 10:17 AM Consult Order COMMUNITY CARE-OPTOMETRY ROUTINE EYE EXAM Cons Program Planner's Choice [facility] Social History: Smoking Status (Most current) and Tobacco Use (All prior to encounter date) This section includes the most current, and the historical, smoking and tobacco- related health factors from the [place] facility where the Encounter took place. Current Smoking Status This section includes the most current smoking, or tobacco-related health factor, from the [place] facility where the Encounter took place. Date/Time Current Smoking Status Comment Facil it Jan 09, 2023 05:09 PM VA-TOBACCO FORMER USER [facility] Tobacco Use History This section includes a history of the smoking, or tobacco-related health factors, that were collected on or before the date of the Encounter. The data comes from the [place] facility where the Encounter took place. Date/Time Smoking Status/Tobac co Use Comment Facility Jan 09, 2023 05:09 PM VA-TOBACCO QUIT 15 YRS OR MORE [facility] Jan 04, 2017 07:42 AM LIFETIME NON-TOBACCO USER [facility] Dec 26, 2015 09:20 AM QUIT TOBACCO USE > 7 YEARS AGO quit in 1997 [facility] October 27, 2003 03:29 PM HISTORY OF SMOKING Smoke free 6 years [facility] Jan 02, 2002 08:56 AM HISTORY OF SMOKING [facility] Jan 02, 2002 08:56 AM QUIT TOBACCO USE > 7 YEARS AGO [facility] Jan 14, 2001 11:25 AM HISTORY OF SMOKING non smoker 4 years [facility] Encounter Notes: All associated encounter notes This section contains the clinical notes associated to the Encounter. Date/Time Encounter Note(s) Provider Source Mar 13, 2024 02:50 PM TELEHEALTH NOTE: LOCAL TITLE: [place] [facility] PSYCHOLOGY NOTE STANDARD TITLE: TELEHEALTH NOTE DATE OF NOTE: MAR 13, 2024@14:50 ENTRY DATE: MAR 13, 2024@14:50:28 AUTHOR: KARSTEN FRANCIS EXP COSIGNER: ISRAEL VIEYRA URGENCY: STATUS: COMPLETED [place] [employer] PSYCHOLOGY NOTE Has ADDENDA This case is supervised by Dr. Marian Manuel, staff psychologist in the [facility], with supervision coverage for this session provided by Dr. Israel Vieyra. Diagnosis, treatment plan, and response to care are reviewed on an ongoing basis in weekly individual supervision meetings. IDENTITY VERIFICATION [X] Patient Name [X] Visual recognition [ ] Birthdate [ ] Social Security # This was a 50 minute individual psychotherapy appointment on 03/13/2024 in the treatment of depression, anxiety and insomnia. DATA: The shared that he had recently broken several toes, while running down his basement stairs to tend to a sewage leak. He shared that he was in pain, but that he sort of enjoyed the adrenaline murphy and excitment of dealing with the plumbing emergency. We discussed the Arden's strategy of occupying himself mentally to avoid anxious thoughts or perception of his tinnitus. We explored the impacts of avoidance over the assisted, and the difference between mearly being busy and engaging in meaningful self-reinforcing activity. We processed the Arden's disappointment with his CPAP and psychophramaceutical treatment. We evaluated his treatment expectations and discussed the idea of cultivating a set of tools rather than veiwing interventions as isolated fixes for issues. ASSESSMENT: The was on time to the appointment and was fully engaged. Grooming and dress were WNL. Gross motor function was WNL. Mood was euthymic and affect was congruent. Speech was normal in rate, tone and prosody. Insight and judgement were intact. There was no evidence of A/VH or thought disorder. No SI. PLAN: Arden will RTC for individual psychotherapy on 03/27/2024 with provider, Dr. Karsten Francis. [place] [facility] ([facility]) Standard Documentation VV Clinician Resources Only: E911 (Emergency Call Relay Center): [phone] National [employer] Crisis Line - 988 then press #1. DIVYA Suicide Coordinator [phone], Ext. [phone]; Back-up Ext. [phone] [place] Police, [place] [phone] Introduction: Visit is being conducted by [facility]. identified with 2 identifiers: [X] Full Name [X] Date of [ ] VA ID Card Emergency Plan: Arden confirmed and/or provided the following information in case of emergency or technology failure. PATIENT PHONE - PHONE NUMBER [CELLULAR] - Is patient phone number correct, if not, enter below: 's phone number: DIANE RASCON [address], [place], [address] Arden's present location and address for appointment: Home address above. Arden's emergency contact name and phone number: Wilda Rascon reported that location is private and safe: Yes Informed Consent: Arden informed of the risks and benefits of Telehealth video care. has the right to refuse video services. If refuses video visit, a ukek-xo-ytyz visit will be scheduled. verbalized consent for this video visit: Yes Arden provided consent for any other persons present for visit: N/A If yes, who and relationship to patient: Secure visit: Visit was locked for security and privacy:Yes /blair/ KARSTEN FRANCIS, PHD [facility] Post-Doctoral Psychology Trainee Signed: 03/13/2024 15:00 /blair/ Israel Vieyra PsyD Staff Psychologist Cosigned: 03/15/2024 07:41 03/15/2024 ADDENDUM STATUS: COMPLETED I have reviewed this case and concur with the clinical impressions and recommendations made by this trainee who is under my clinical supervision. /alana Vieyra PsyD Staff Psychologist Signed: 03/15/2024 07:41 KARSTEN FRANCIS [place] [facility]
--- OUTSIDE RECORDS SUMMARY | 2024-06-04 11:14 | XMS_ITS | Encounter Summary ---
Author Name [facility] [place] Address [address] [place] [address] Care Team Providers Care Diver Pumper Name Role Phone DELIA BUCKNER Primary Care Provider [facility] Insurance Providers: All historical and current [...] Garner's Name Patient's Relationship to Policy Garner [facility] Apr 03, 2012 [id number] [phone] [id number] [phone] DIANE RASCON SPOUSE Selected Encounter This section includes the information on record at [place] for the Encounter. Date/Time Encounter Type Encounter Description Reason Provider Source Nov 21, 2023 07:46 AM Outpatient Encounter PRIMARY CARE/MEDICINE [facility]NER OSB[facility] [place] Encounter Template Text not used by [place] Plan of Treatment: Future Appointments (+ 6 months) and Future Tests (+/- 45 days) The Plan of Treatment section includes future care activities for the patient from all [place] treatmentfacilities. This section includes future appointments and future orders which are active, pending or scheduled. Future Appointments This section includes appointments that were scheduled to occur 6 months from the date of the Encounter, up to a maximum of 20 appointments. The data comes from all [place] treatment facilities. Appointment Date/Time Appointment Type Appointme nt Facility Name Nov 28, 2023 02:00 PM AMBULATORY - PSYCHIATRY [facility] [place] [facility] Dec 02, 2023 03:30 PM AMBULATORY - MEDICINE [facility] [place] [facility] Dec 20, 2023 02:00 PM AMBULATORY - PSYCHIATRY [facility] [place] [facility] Jan 17, 2024 02:00 PM AMBULATORY - PSYCHIATRY [facility] [place] [facility] Jan 31, 2024 02:00 PM AMBULATORY - PSYCHIATRY [facility] [place] [facility] Feb 11, 2024 02:30 PM AMBULATORY - NEUROLOGY [facility] [place] [facility] Feb 28, 2024 02:00 PM AMBULATORY - PSYCHIATRY [facility] [place] [facility] Mar 09, 2024 03:30 PM AMBULATORY - MEDICINE [facility] [place] [facility] Mar 13, 2024 02:00 PM AMBULATORY - PSYCHIATRY [facility] [place] [facility] Mar 24, 2024 11:00 AM AMBULATORY - MEDICINE [facility] [place] [facility] Mar 27, 2024 02:00 PM AMBULATORY - PSYCHIATRY [facility] [place] [facility] Mar 31, 2024 02:30 PM AMBULATORY - NEUROLOGY [facility] [place] [facility] Mar 31, 2024 02:30 PM AMBULATORY - [facility]OLOGY [facility] Apr 01, 2024 08:30 AM AMBULATORY - PSYCHIATRY [facility] [place] [facility] Apr 24, 2024 02:00 PM AMBULATORY - PSYCHIATRY [facility] [place] [facility] May 04, 2024 03:00 PM AMBULATORY - PSYCHIATRY [facility] [place] [facility] May 15, 2024 02:00 PM AMBULATORY - PSYCHIATRY [facility] [place] [facility] Social History: Smoking Status (Most current) and [...] 09, 2023 05:09 PM VA-TOBACCO FORMER USER [facility] Tobacco Use History This section includes a history of the smoking, or tobacco-related health factors, that were collected on or before the date of the Encounter. The data comes from the [place] facility where the Encounter took place. Date/Time Smoking Status/Tobac co Use Comment Facility Jan 09, 2023 05:09 PM [place]-TOBACCO QUIT 15 YRS OR MORE [facility] Jan 04, 2017 07:42 AM LIFETIME NON-TOBACCO USER [facility] Dec 26, 2015 09:20 AM QUIT TOBACCO USE > 7 YEARS AGO quit in 1997 [facility] October 27, 2003 03:29 PM HISTORY OF SMOKING Smoke free 6 years [facility] Jan 02, 2002 08:56 AM HISTORY OF SMOKING [facility] Jan 02, 2002 08:56 AM QUIT TOBACCO USE > 7 YEARS AGO [facility] Jan 14, 2001 11:25 AM HISTORY OF SMOKING non smoker 4 years [facility] Encounter Notes: All associated encounter notes This section contains the clinical notes associated to the Encounter. Date/Time Encounter Note(s) Provider Source Nov 21, 2023 07:46 AM PRIMARY CARE SECUR E MESSAGING: [facility] TITLE: PRIMARY CARE SECURE MESSAGING STANDARD TITLE: PRIMARY CARE SECURE MESSAGING DATE OF NOTE: NOV 21, 2023@07:46 ENTRY DATE: NOV 21, 2023@08:46:06 AUTHOR: LOREN OSBORNE EXP COSIGNER: URGENCY: STATUS: COMPLETED PRIMARY CARE SECURE MESSAGING Has ADDENDA ------Original Message ------- Sent: 11/20/2023 06:36 PM ET From: DIANE RASCON To: Carmen BUCKNER_PRIMARY CARE_[facility] Subject: General:Headache Log DR ROCHA Attachments: Headache Log.pdf (1981.30 KB) ATTN: DR ROCHA Neurology please see attached headache log. ------Original Message ------- Sent: 11/21/2023 08:46 AM ET From: LOREN OSBORNE To: DIANE RASCON Subject: General:Headache Log DR AJ Goldsmith Morning Woody Rascon, I will alert Dr. Navarrete to your enclosed log readings. Also it appears you are overdue for follow up with Dr. Buckner, I will have Harman our [facility] reach out to schedule a visit. Respectfully, Loren Osborne RN /es/ Loren Osborne MSN RN CNL Primary Care RN Signed: 11/21/2023 08:46 Receipt Acknowledged By: 11/21/2023 09:04 /blair/ SAUNDRA SAINI [employer] TEAM MEMBER 11/21/2023 ADDENDUM STATUS: COMPLETED spoke to and scheduled appointment. /blair/ SAUNDRA SAINI [employer] TEAM MEMBER Signed: 11/21/2023 09:04 11/21/2023 ADDENDUM STATUS: COMPLETED Sent [place] email to Dr. Navarrete with PDF of headache log for his records. /blair/ Loren Osborne MSN RN CNL Primary Care RN Signed: 11/21/2023 09:13 LOREN OSBORNE [facility] [place]
--- OUTSIDE RECORDS SUMMARY | 2024-06-04 11:14 | XMS_ITS ---
Author Name [facility] [place] [facility] [place] [facility] [place] Address [address] [place] [id number] Care Team Providers Care Clinical Associate Name Role Phone DELIA CHRISTIANSEN Primary Care Provider [facility] Insurance Providers: All historical and current Section [...] Name Patient's Relationship to Policy [facility] Apr 03, 2012 [id number] DIANE RASCON SPOUSE Selected Encounter This section includes the information on record at [place] for the Encounter. Date/Time Encounter Type Encounter Description Reason Provider Source Jan 17, 2024 02:00 PM PSYTX W PT 45 [facility]UTES [facility] - IND ICD-10-CM H93.19 Tinnitus, unspecified ear TARIQ TRAN [place] Encounter Template Text not used by [place] Assessments - Encounter Diagnoses This section includes the primary and secondary diagnoses documented for the Encounter. Date/Time Primary/Secondary Diagnosis Diagnosis Name Provider Source Jan 17, 2024 04:06 PM PRIMARY Tinnitus, unspecified ear PENNY,KARSTEN A [facility] [place] [facility] Jan 17, 2024 04:06 PM SECONDARY Depression, unspecified PENNY,KARSTEN [place] [facility] [place] [facility] Jan 17, 2024 04:06 PM SECONDARY Generalized anxiety disorder KARSTEN FRANCIS [facility] [place] [facility] Jan 17, 2024 04:06 PM SECONDARY Primary insomnia KARSTEN FRANCIS [place] [facility] [place] [facility] Plan of Treatment: Future Appointments (+ 6 months) and Future Tests (+/- 45 days) The Plan of Treatment section includes future care activities for the patient from all [place] [facility] This section includes future appointments and future orders which are active, pending or scheduled. Future Appointments This section includes appointments that were scheduled to occur 6 months from the date of the Encounter, up to a maximum of 20 appointments. The data comes from all [place] treatment facilities. Appointment Date/Time Appointment Type Appointme nt Facility Name Jan 31, 2024 02:00 PM AMBULATORY - PSYCHIATRY [facility] [place] [facility] Feb 11, 2024 02:30 PM AMBULATORY - NEUROLOGY [facility] [place] [facility] Feb 28, 2024 02:00 PM AMBULATORY - PSYCHIATRY [facility] [place] [facility] Mar 09, 2024 03:30 PM AMBULATORY - MEDICINE [facility] [place] [facility] Mar 13, 2024 02:00 PM AMBULATORY - PSYCHIATRY [facility] [place] [facility] Mar 24, 2024 11:00 AM AMBULATORY - MEDICINE [facility] [place] [facility] Mar 27, 2024 02:00 PM AMBULATORY - PSYCHIATRY [facility] [place] [facility] Mar 31, 2024 02:30 PM AMBULATORY - NEUROLOGY [facility] [place] [facility] Mar 31, 2024 02:30 PM AMBULATORY - NEUROLOGY [facility] [place] [facility] Apr 01, 2024 08:30 AM AMBULATORY - PSYCHIATRY [facility] [place] [facility] Apr 24, 2024 02:00 PM AMBULATORY - PSYCHIATRY [facility] [place] [facility] May 04, 2024 03:00 PM AMBULATORY - PSYCHIATRY [facility] [place] [facility] May 15, 2024 02:00 PM AMBULATORY - PSYCHIATRY [facility] [place] [facility] May 25, 2024 03:00 PM AMBULATORY - PSYCHIATRY [facility] [place] [facility] Jun 12, 2024 02:00 PM AMBULATORY - PSYCHIATRY [facility] [place] [facility] Jun 23, 2024 03:30 PM AMBULATORY - PSYCHIATRY [facility] [place] [facility] Jul 07, 2024 01:30 PM AMBULATORY - NEUROLOGY [facility] Jul 07, 2024 01:30 PM [facility] Social History: Smoking Status (Most current) and [...] 09, 2023 05:09 PM VA-TOBACCO [facility] Tobacco Use History This section includes a history of the smoking, or tobacco-related health factors, that were collected on or before the date of the Encounter. The data comes from the [place] facility where the Encounter took place. Date/Time Smoking Status/Tobac co Use Comment Facility Jan 09, 2023 05:09 PM VA-TOBACCO QUIT 15 YRS OR MORE [facility] [place] [facility] Jan 04, 2017 07:42 AM LIFETIME NON-TOBACCO USER [facility] [place] [facility] Dec 26, 2015 09:20 AM QUIT TOBACCO USE > 7 YEARS AGO [facility] [place] [facility] October 27, 2003 03:29 PM HISTORY OF SMOKING Smoke free 6 years [facility] [place] [facility] Jan 02, 2002 08:56 AM HISTORY OF SMOKING [facility] [place] [facility] Jan 02, 2002 08:56 AM QUIT TOBACCO USE > 7 YEARS AGO [facility] [place] [facility] Jan 14, 2001 11:25 AM HISTORY OF SMOKING non smoker 4 [facility] Encounter Notes: All associated encounter notes This section contains the clinical notes associated to the Encounter. Date/Time Encounter Note(s) Provider Source Jan 17, 2024 04:00 PM TELEHEALTH NOTE: LOCAL TITLE: [facility] PSYCHOLOGY NOTE STANDARD TITLE: TELEHEALTH NOTE DATE OF NOTE: JAN 17, 2024@16:00 ENTRY DATE: JAN 17, 2024@16:01:30 AUTHOR: KARSTEN FRANCIS COSIGNER: TARIQ TRAN URGENCY: [...] a 50 minute individual psychotherapy appointment on 01/17/2024 in the treatment of depression, anxiety and insomnia. DATA: The shared the continued sense that his challenges/symptoms were remaining stable. We explored different elements that might challenge sleep, especially pre-bedtime arousal. We explored how the [place]'s frequent coping mechanism of distracting himself (e.g. building a cabin in his mind), may in part increase activation. We explored the theme of working hard to get sleep, and processed the impact of these efforts over time. We explored the costs of avoidance, and explored lightly the idea of acceptance as an alternative approach ASSESSMENT: The was on time to the appointment and was fully engaged. Grooming and dress were WNL. Gross motor function was WNL. Mood was mildly dysphoric and affect was congruent and varied appropriately. Speech was normal in rate, tone and prosody. Insight and judgement were intact. There was no evidence of A/VH or thought disorder. No SI. DSM DIAGNOSES (w/ICD10 codes): - F40.10 Social Anxiety Disorder - F41.1 Generalized Anxiety Disorder - F51.01 Insomnia, with mental disorder and with medical condition, persistent - F32.A Unspecified Depressive Disorder - F50.81 Binge Eating Disorder PLAN: will RTC for individual psychotherapy on 01/31/2024 with provider, Dr. Karsten Francis. [place] [facility] ([facility]VC) Standard Documentation [facility] Clinician Resources Only: E911 (Emergency Call Relay Center): [phone] [facility] Crisis Line - 988 then press #1. [facility] Suicide Coordinator [phone], Ext. [phone]; Back-up Ext. [phone] [place] DIVYA [place] [phone] Introduction: Visit is being conducted by [place] [facility]. [place] identified with 2 identifiers: [X] Full Name [X] Date of [ ] [place] ID Card Emergency Plan: confirmed and/or provided the following information in case of emergency or technology failure. PATIENT PHONE - PHONE NUMBER [CELLULAR] - Is patient phone number correct, if not, enter below: [place]'s phone number: DIANE RASCON [address], [place], [address] 's present location and address for appointment: Home address above. 's emergency contact name and phone number: Wilda Rascon reported that location is private and safe: Yes Informed Consent: informed of the risks and benefits of Telehealth video care. [place] has the right to refuse video services. If refuses video visit, a [id number] visit will be scheduled. [place] verbalized consent for this video visit: Yes provided consent for any other persons present for visit: N/A If yes, who and relationship to patient: Secure visit: Visit was locked for security and privacy:Yes /blair/ KARSTEN FRANCIS, PHD [facility] Post-Doctoral Psychology Trainee Signed: 01/17/2024 16:06 /blair/ TARIQ TRAN PSYD PSYCHOLOGIST Cosigned: 01/17/2024 16:53 01/17/2024 ADDENDUM STATUS: COMPLETED I have reviewed this case and concur with the clinical impressions and recommendations made by this trainee who is under my clinical supervision. /blair/ TARIQ TRAN PSYD PSYCHOLOGIST Signed: 01/17/2024 16:53 KARSTEN FRANCIS [facility]
--- OUTSIDE RECORDS SUMMARY | 2024-06-04 11:14 | XMS_ITS ---
Author Name [facility] [place] [facility] [place] [facility] [place] Address [address] [place] [id number] Care Team Providers Care Optometric Tech Name Role Phone DELIA CHRISTIANSEN Primary [facility] Provider [facility] Insurance Providers: All historical and [...] Garner's Name Patient's Relationship to Policy Garner [facility] Apr 03, 2012 [id number] [phone] DIANE RASCON SPOUSE Selected Encounter This section includes the information on record at [place] for the Encounter. Date/Time Encounter Type Encounter Description Reason Provider Source Sep 19, 2023 01:00 PM PSYTX W PT 45 MINUTES [facility] [place] ICD-10-CM F51.01 Primary insomnia TAMIKO EVANS E Encounter Template Text not used by [place] Assessments - Encounter Diagnoses This section includes the primary and secondary diagnoses documented for the Encounter. Date/Time Primary/Secondary Diagnosis Diagnosis Name Provider Source Sep 19, 2023 02:04 PM PRIMARY Primary insomnia DELILAH FRANCIS [place] [facility] [place] [facility] Sep 19, 2023 02:04 PM SECONDARY Binge eating disorder DELILAH FRANCIS [facility] [place] [facility] Sep 19, 2023 02:04 PM SECONDARY Depression, unspecified DELILAH FRANCIS [facility] [place] [facility] Sep 19, 2023 02:04 PM SECONDARY Generalized anxiety disorder DELILAH FRANCIS [facility] [place] [facility] Sep 19, 2023 02:04 PM SECONDARY Tinnitus, unspecified ear DELILAH FRANCIS [facility] [place] [facility] Plan of Treatment: Future Appointments (+ 6 [...] 20 appointments. The data comes from all [place] treatment facilities. Appointment Date/Time Appointment Type Appointme nt Facility Name October 04, 2023 02:00 PM AMBULATORY - PSYCHIATRY [facility] [place] [facility] October 18, 2023 02:00 PM AMBULATORY - PSYCHIATRY [facility] [place] [facility] October 30, 2023 03:30 PM AMBULATORY - NONE [facility] [place] [facility] October 30, 2023 03:30 PM AMBULATORY - NEUROLOGY [facility] November 01, 2023 02:00 PM AMBULATORY - PSYCHIATRY [facility] [place] [facility] Nov 15, 2023 02:00 PM AMBULATORY - PSYCHIATRY [facility] [place] [facility] Nov 28, 2023 02:00 PM AMBULATORY - PSYCHIATRY [facility] [place] [facility] Dec 02, 2023 03:30 PM AMBULATORY - MEDICINE [facility] [place] [facility] Dec 20, 2023 02:00 PM AMBULATORY - PSYCHIATRY [facility] [place] [facility] Jan 17, 2024 02:00 PM AMBULATORY - PSYCHIATRY [facility] [place] [facility] Jan 31, 2024 02:00 PM AMBULATORY - PSYCHIATRY [facility] [place] [facility] Feb 11, 2024 02:30 PM AMBULATORY - NEUROLOGY [facility] [place] [facility] Feb 28, 2024 02:00 PM AMBULATORY - PSYCHIATRY [place] [facility] [place] [facility] Mar 09, 2024 03:30 PM AMBULATORY - MEDICINE IN [facility] [place] [facility] Mar 13, 2024 02:00 PM [facility] Lab Results: +/- 30 days of the encounter This section includes the Chemistry and Hematology Lab Results on record with [place] for the patient. Radiology Reports and Pathology Reports are provided separately, in subsequent sections. Lab Results This section contains the Chemistry/Hematology Results that were resulted 30 days before or 30 daysafter the date of the Encounter. Date/Time Source Result Type Result - Unit Interpretation Reference Range Comment Aug 27, 2023 09:19 AM [facility] FOLATE Specimen Type: SERUM No comment entered. Ordering Provider: THERESA CHRISTIANSEN AM Report Released Date/Time: Jun 25, 2023 08:42 AM Reporting Lab: [facility] [address] [facility] [address] Performing Lab: [facility] [address] [facility] [address] FOLATE 11.13 ng/mL >5.2 Aug 27, 2023 09:19 AM [facility] THYROID T4 FREE(FT4) Specimen Type: SERUM No comment entered. Ordering Provider: THERESA CHRISTIANSEN AM Report Released Date/Time: Jun 25, 2023 08:42 AM Reporting Lab: [facility] [address] [facility] [address] Performing Lab: [facility] [address] [facility] [address] THYROID T4 FREE(FT4) 0.90 ng/dL 0.6-1.6 Aug 27, 2023 09:19 AM [facility] VITAMIN B12 Specimen Type: SERUM No comment entered. Ordering Provider: THERESA CHRISTIANSEN AM Report Released Date/Time: Jun 25, 2023 08:42 AM Reporting Lab: [facility] [address] [facility] [address] Performing Lab: [facility] [address] [facility] [address] VITAMIN B12 469 pg/mL 200-900 Aug 27, 2023 09:19 AM [facility] VITAMIN D (25-OH) Specimen Type: SERUM No comment entered. Ordering Provider: THERESA CHRISTIANSEN AM Report Released Date/Time: Jun 25, 2023 08:42 AM Reporting Lab: [facility] [address] [facility] [address] Performing Lab: [address] [address] VITAMIN D (25-OH) 16 ng/mL L 20-50 Aug 27, 2023 09:19 AM [facility] CBC Specimen Type: BLOOD No comment entered. Ordering Provider: THERESA CHRISTIANSEN AM Report Released Date/Time: Jun 25, 2023 08:42 AM Reporting Lab: [address] [address] Performing Lab: [address] [address] WBC 5.18 10*3/uL 4.50-11.00 RBC 5.10 10*6/uL 4.23-5.66 HGB 14.3 g/dL 12.8-17 HCT 43.5 39.2-50.4 MCV 85.3 fL 82-99 MCHC 32.9 g/dL 30.8-35.1 PLT 179 10*3/uL 140-360 RDW-CV 12.8 12.0-16.0 MCH 28.0 pg 26.2-32.6 Aug 27, 2023 09:19 AM [facility] MAGNESIUM Specimen Type: SERUM No comment entered. Ordering Provider: THERESA CHRISTIANSEN AM Report Released Date/Time: Jun 25, 2023 08:42 AM Reporting Lab: [facility] [address] [facility] [address] Performing Lab: [address] [address] MAGNESIUM 2.0 mg/dL 1.6-2.6 Aug 27, 2023 09:19 AM [facility] HEMOGLOBIN A1C PANEL Specimen Type: BLOOD Comment: [...] Jun 25, 2023 08:42 AM Reporting Lab: [address] [address] Performing Lab: [address] [address] HEMOGLOBIN A1C 5.4 4.0-5.6 Aug 27, 2023 09:19 AM [facility] TSH Specimen Type: SERUM No comment entered. Ordering Provider: THERESA CHRISTIANSEN AM Report Released Date/Time: Jun 25, 2023 08:42 AM Reporting Lab: [facility] [address] [facility] [address] Performing Lab: [facility] [address] [address] TSH 1.38 u[IU]/mL 0.35-5.00 Aug 27, 2023 09:19 AM [facility] PSA Specimen Type: SERUM No comment entered. Ordering Provider: THERESA CHRISTIANSEN AM Report Released Date/Time: Jun 25, 2023 08:42 AM Reporting Lab: [facility] [address] [facility] [address] Performing Lab: [facility] [address] PSA 1.35 ng/mL 0.00-4.00 Aug 27, 2023 09:19 AM [facility] BASIC METABOLIC PANEL (fasting) Specimen Type: SERUM No comment entered. Ordering Provider: THERESA CHRISTIANSEN AM Report Released Date/Time: Jun 25, 2023 08:42 AM Reporting Lab: [facility] [address] [facility] [address] Performing Lab: [address] [address] UREA NITROGEN 15 mg/dL 7-25 GLUCOSE 95 mg/dL 65-100 SODIUM 142 mmol/L 135-145 POTASSIUM 4.3 mmol/L 3.5-5.0 CHLORIDE 107 mmol/L 100-110 CO2 25 meq/L 20-30 CREATININE, Serum 0.68 mg/dL 0.50-1.40 eGFR(CKD-EPI 2020) >90 mL/min >60 Aug 27, 2023 09:19 AM [facility] LIVER FUNCTION Specimen Type: SERUM No comment entered. Ordering Provider: THERESA CHRISTIANSEN AM Report Released Date/Time: Jun 25, 2023 08:42 AM Reporting Lab: [address] [address] Performing Lab: [address] [address] PROTEIN,TOTAL 6.2 g/dL 6.0-8.3 ALBUMIN 3.6 g/dL 3.5-5.0 ALKALINE PHOSPHATASE 75 U/L 40-150 AST 10 U/L 5-34 ALT 15 U/L BILIRUBIN, TOTAL 0.9 mg/dL 0.2-1.2 Aug 27, 2023 09:19 AM [facility] LIPID PANEL FASTING Specimen Type: SERUM No comment entered. Ordering Provider: THERESA CHRISTIANSEN AM Report Released Date/Time: Jun 25, 2023 08:42 AM Reporting Lab: [facility] [address] [facility] [address] Performing Lab: [address] [address] CHOLESTEROL 183 mg/dL TRIGLYCERIDE 112 mg/dL 0-150 LDL calculated 120 mg/dL 0-129 CHOL/HDL 4.5 HDL CHOLESTEROL 41 mg/dL 40-60 Social History: Smoking Status (Most current) and Tobacco Use (All prior to encounter date) This section includes the most current, and the historical, smoking and tobacco- related health factors from the [place] facility where the Encounter took place. Current Smoking Status This section includes the most current smoking, or tobacco-related health factor, from the [place] facility where the Encounter took place. Date/Time Current Smoking Status Comment [facility] Jan 09, 2023 05:09 PM [place]-TOBACCO FORMER USER [facility] Tobacco Use History This section includes a history of the smoking, or tobacco-related health factors, that were collected on or before the date of the Encounter. The data comes from the [place] facility where the Encounter took place. Date/Time Smoking Status/Tobac co Use Comment Facility Jan 09, 2023 05:09 PM [place]-TOBACCO QUIT 15 YRS OR MORE [facility] Jan 04, 2017 07:42 AM LIFETIME NON-TOBACCO USER [facility] Dec 26, 2015 09:20 AM QUIT TOBACCO USE > 7 YEARS AGO quit in 1997 [facility] October 27, 2003 03:29 PM HISTORY OF SMOKING Smoke free 6 years [facility] Jan 02, 2002 08:56 AM HISTORY OF SMOKING [facility] Jan 02, 2002 08:56 AM QUIT TOBACCO USE > 7 YEARS AGO [facility] Jan 14, 2001 11:25 AM HISTORY OF SMOKING non smoker 4 years [facility] Encounter Notes: All associated encounter notes This section contains the clinical notes associated to the Encounter. Date/Time Encounter Note(s) Provider Source Sep 19, 2023 01:56 PM TELEHEALTH NOTE: LOCAL TITLE: IN VIDEO CONNECT PSYCHOLOGY NOTE STANDARD TITLE: TELEHEALTH NOTE DATE OF NOTE: SEP 19, 2023@13:56 ENTRY DATE: SEP 19, 2023@13:56:35 AUTHOR: DELILAH FRANCIS COSIGNER: AMAYA EVANS URGENCY: STATUS: COMPLETED Supervision: This case is being supervised by Blayne Bennett, Ph.D., full-time Staff Psychologist. Licensed Psychologist, Amaya Evans PsyD providing supervision coverage for this session. Diagnosis, treatment plan, and response to care are reviewed in one hour weekly individual supervision meetings. This was a 50 minute individual psychotherapy appointment in the treatment of depression, anxiety and insomnia. DATA: [place] shared that he had met with his psychiatrist (in the community) and they had increased his trazadone dose (from 100mg to 200mg) which he was hopeful would help him fall asleep more quickly. The provider gave psychoed around CBT-i and ACT treatment approaches. We spent some extra time exploring stiumlus control as it relates to sleep. The disclosed to the provider patterns of overeating, and consequent issues with weight gain. [place] shared that he eats at times until uncomfortably full, is embarassed about that his eating, and struggles to control his eating at times. He described an emotional connection his eating (e.g., feeling depressed of physically tired would beget eating). He also described the after effects (feeling bloated or overful) as reasons not to engage in or cancel social plans. We discussed binge eating disorder together, and processed the impact of disclosing this information to the provider. ASSESSMENT: [place] was on time to the appointment and was fully engaged. He gave some indications of weariness to provide information. Grooming and dress were WNL. Gross motor function was WNL. Mood was dysphoric and affect was congruent and varied appropriately. Speech was normal in rate, tone and prosody. Insight and judgement were intact. There was no evidence of A/VH or thought disorder. SI was not elicited in today's session, and there were no indications of any increases in risk. [place]'s report suggests that he additionall meets criteria for a Binge Eating Disorder. DSM DIAGNOSES (w/ICD10 codes): - F40.10 Social Anxiety Disorder - F41.1 Generalized Anxiety Disorder - F51.01 Insomnia, with mental disorder and with medical condition, persistent - F32.A Unspecified Depressive Disorder - F50.81 Binge Eating Disorder PLAN: will RTC for individual psychotherapy on 10/04/2023 with provider, Dr. Delilah Francis. In our next session we will continue our shared decision making. /blair/ DELILAH FRANCIS, PHD [facility] Post-Doctoral Psychology Trainee Signed: 09/19/2023 14:03 /blair/ AMAYA EVANS PSYD CLINICAL PSYCHOLOGIST - [facility] Cosigned: 09/19/2023 16:20 Receipt Acknowledged By: 09/23/2023 10:25 /blair/ Blayne Bennett, PhD Clinical Psychologist, [facility] DELILAH FRANCIS [facility] [place] [facility] Sep 19, 2023 09:44 AM [facility]ALTH [facility] TME PLAN NOTE: LOCAL TITLE: MH TREATMENT PLAN STANDARD TITLE: MENTAL HEALTH TREATMENT PLAN NOTE DATE OF NOTE: SEP 19, 2023@09:44 ENTRY DATE: SEP 26, 2023@09:45:18 AUTHOR: DELILAH FRANCIS EXP COSIGNER: BLAYNE BENNETT URGENCY: STATUS: COMPLETED MH TREATMENT PLAN - Sep, @ 09:44AM Visit Date: Sep, @ 13:00 - CWM/NO/VVC/DIANNE/PENNY MH SHOW GIRL: GEE DEVINE / GISSELLE Lackey TEAM MEMBERS: DELILAH FRANCIS: PSYCHOLOGIST RISK ASSESSMENT (DANGER TO SELF AND OTHERS): Low risk to others Good Judgment Infrequent passive SI INTERDISCIPLINARY INTEGRATED SUMMARY: Reason for Update: Initiating new course of individual psychotherapy on 08/22/23 MENTAL HEALTH DIAGNOSES AND RELEVANT MEDICAL CONDITIONS: Binge eating behaviour (SCT 2450733019) Insomnia (SCT 670531171) Anxiety (SCT 23140936) Depression (SCT 39329566) TREATMENT PLAN: Problem: Symptoms of depression, anxiety and issues with sleep. Goal: Develop comprehensive treatment plan using shared decision making to target mood symptoms and sleep. Objective: Reduce anxiety and depression symptoms, and improve sleep quality. Projected Target Date: 09/25/2024 Intervention: Utilize CBT-i, ACT or a mixed approach to improve symptoms and function. Providers: DELILAH FRANCIS Time Frame: One time every 2 weeks for 1 year Treating Specialty: Mental Health Clinic Renewal Date: 09/25/2024 Entered Treatment: 09/26/2023 @ 09:44AM Anticipated Discharge: None Actual Discharge: None PARTICIPATION IN TREATMENT PLANNING: Relevant treatment options, including evidence-based interventions, were considered and discussed with the . Risks, benefits, and potential complications were discussed with the [place]. AGREED TO PLAN DISCUSSED. /blair/ DELILAH FRANCIS, PHD [facility] Post-Doctoral Psychology Trainee Signed: 09/26/2023 09:45 /blair/ Blayne Bennett, PhD Clinical Psychologist, Mental Health Clinic Cosigned: 09/26/2023 14:31 Receipt Acknowledged By: 09/26/2023 15:48 /blair/ Gee Devine LCSW [facility] [employer] Rep DELILAH FRANCIS [facility]
--- OUTSIDE RECORDS SUMMARY | 2024-06-04 11:14 | XMS_ITS | Encounter Summary ---
Author Name [facility] [place] Organization [facility] [place] Address [address] [place] [address] Care Team Providers Care College Tutor Name Role Phone VICTORINO BUCKNER Primary Care Provider [facility] Insurance Providers: [...] Garner's Name Patient's Relationship to Policy Garner [facility] Apr 03, 2012 [id number] [phone] DIANE RASCON SPOUSE Selected Encounter This section includes the information on record at [place] for the Encounter. Date/Time Encounter Type Encounter Description Reason Pro vider Source Sep 06, 2023 03:31 PM Outpatient Encounter TELEPHONE/MEDICINE IHE Encounter Template Text not used by [place] Plan of Treatment: Future Appointments (+ 6 months) and Future Tests (+/- 45 days) The Plan of Treatment section includes future care activities for the patient from all [place] treatmentfacilities. This section includes future appointments and future orders which are active, pending or scheduled. Future Appointments This section includes appointments that were scheduled to occur 6 months from the date of the Encounter, up to a maximum of 20 appointments. The data comes from all [place] treatment facilities. Appointment Date/Time Appointment Type Appointme nt Facility Name Sep 19, 2023 01:00 PM AMBULATORY [facility] October 04, 2023 02:00 PM AMBUL[facility] October 18, 2023 02:00 PM AMBULATORY [facility] October 30, 2023 03:30 PM AMBULATORY - NONE [facility] October 30, 2023 03:30 PM AMBULATORY - [facility]UROLOGY [facility] November 01, 2023 02:00 PM AMBULATORY [facility] Nov 15, 2023 02:00 PM AMBULATORY - [facility] Nov 28, 2023 02:00 PM AMBULATORY [facility] Dec 02, 2023 03:30 PM [facility] Dec 20, 2023 02:00 PM AMBULATORY - PS[facility]CHIATRY [facility] Jan 17, 2024 02:00 PM AMBULATORY - PS[facility]CHIATRY [facility] Jan 31, 2024 02:00 PM AMBULATORY - PS[facility] Feb 11, 2024 02:30 PM AMBULATORY - NEUROLOGY [facility] Feb 28, 2024 02:00 PM AMBULATORY - PS[facility]IAT[facility] Lab Results: +/- 30 days of the encounter This section includes the Chemistry and Hematology Lab Results on record with [place] for the patient. Radiology Reports and Pathology Reports are provided separately, in subsequent sections. Lab Results This section contains the Chemistry/Hematology Results that were resulted 30 days before or 30 daysafter the date of the Encounter. Date/Time Source Result Type Result - Unit Interpretation Reference Range Comment Aug 27, 2023 09:19 AM [facility] THYROID T4 FREE(FT4) Specimen Type: SERUM No comment entered. Ordering Provider: THERESA BUCKNER AM Report Released Date/Time: Jun 25, 2023 08:42 AM Reporting Lab: [facility] [place] [address] [address] Performing Lab: [facility] [address] [facility] [address] THYROID T4 FREE(FT4) 0.90 ng/dL 0.6-1.6 Aug 27, 2023 09:19 AM [facility] FOLATE Specimen Type: SERUM No comment entered. Ordering Provider: THERESA BUCKNER AM Report Released Date/Time: Jun 25, 2023 08:42 AM Reporting Lab: [facility] [address] [facility] [address] Performing Lab: [facility] [address] [facility] [address] FOLATE 11.13 ng/mL >5.2 Aug 27, 2023 09:19 AM [facility] VITAMIN B12 Specimen Type: SERUM No comment entered. Ordering Provider: THERESA BUCKNER AM Report Released Date/Time: Jun 25, 2023 08:42 AM Reporting Lab: [facility] [address] [facility] [address] Performing Lab: [facility] [address] [address] VITAMIN B12 469 pg/mL 200-900 Aug 27, 2023 09:19 AM [facility] VITAMIN D (25-OH) Specimen Type: SERUM No comment entered. Ordering Provider: THERESA BUCKNER AM Report Released Date/Time: Jun 25, 2023 08:42 AM Reporting Lab: [facility] [address] [facility] [address] Performing Lab: [facility] [address] [address] VITAMIN D (25-OH) 16 ng/mL L 20-50 Aug 27, 2023 09:19 AM [facility] MAGNESIUM Specimen Type: SERUM No comment entered. Ordering Provider: THERESA BUCKNER AM Report Released Date/Time: Jun 25, 2023 08:42 AM Reporting Lab: [facility] [address] Performing Lab: [facility] [address] [facility] [address] MAGNESIUM 2.0 mg/dL 1.6-2.6 Aug 27, 2023 09:19 AM [facility] HEMOGLOBIN A1C PANEL Specimen Type: BLOOD Comment: Values obtained from A1C measurements can vary. For atypical A1C assays, a reported value of 7.0 could actually be between 6.72 and 7.28 if measured by a reference method. A reported value of 9.0 could actually be between 8.73 and 9.27. Ref: http://www.ngs p.org/CAPdata. asp Ordering Provider: THERESA BUCKNER AM Report Released Date/Time: Jun 25, 2023 08:42 AM Reporting Lab: [address] [address] Performing Lab: [address] [address] HEMOGLOBIN A1C 5.4 4.0-5.6 Aug 27, 2023 09:19 AM [facility] CBC Specimen Type: BLOOD No comment entered. Ordering Provider: THEERSA BUCKNER AM Report Released Date/Time: Jun 25, 2023 08:42 AM Reporting Lab: [address] [address] Performing Lab: [address] [address] WBC 5.18 10*3/uL 4.50-11.00 RBC 5.10 10*6/uL 4.23-5.66 HGB 14.3 g/dL 12.8-17 HCT 43.5 39.2-50.4 MCV 85.3 fL 82-99 MCHC 32.9 g/dL 30.8-35.1 PLT 179 10*3/uL 140-360 RDW-CV 12.8 12.0-16.0 MCH 28.0 pg 26.2-32.6 Aug 27, 2023 09:19 AM [facility] TSH Specimen Type: SERUM No comment entered. Ordering Provider: THERESA BUCKNER AM Report Released Date/Time: Jun 25, 2023 08:42 AM Reporting Lab: [facility] [address] [facility] [address] Performing Lab: [facility] [address] [facility] [address] TSH 1.38 u[IU]/mL 0.35-5.00 Aug 27, 2023 09:19 AM [facility] PSA Specimen Type: SERUM No comment entered. Ordering Provider: THERESA BUCKNER AM Report Released Date/Time: Jun 25, 2023 08:42 AM Reporting Lab: [facility] [address] [address] Performing Lab: [facility] [address] [address] PSA 1.35 ng/mL 0.00-4.00 Aug 27, 2023 09:19 AM [facility] LIPID PANEL FASTING Specimen Type: SERUM No comment entered. Ordering Provider: THERESA BUCKNER AM Report Released Date/Time: Jun 25, 2023 08:42 AM Reporting Lab: [facility] [address] [address] Performing Lab: [facility] [address] [address] CHOLESTEROL 183 mg/dL TRIGLYCERIDE 112 mg/dL 0-150 LDL calculated 120 mg/dL 0-129 CHOL/HDL 4.5 HDL CHOLESTEROL 41 mg/dL 40-60 Aug 27, 2023 09:19 AM [facility] LIVER FUNCTION Specimen Type: SERUM No comment entered. Ordering Provider: THERESA BUCKNER AM Report Released Date/Time: Jun 25, 2023 08:42 AM Reporting Lab: [facility] [address] Performing Lab: [facility] [address] [address] PROTEIN,TOTAL 6.2 g/dL 6.0-8.3 ALBUMIN 3.6 g/dL 3.5-5.0 ALKALINE PHOSPHATASE 75 U/L 40-150 AST 10 U/L 5-34 ALT 15 U/L BILIRUBIN, TOTAL 0.9 mg/dL 0.2-1.2 Aug 27, 2023 09:19 AM [facility] BASIC METABOLIC PANEL (fasting) Specimen Type: SERUM No comment entered. Ordering Provider: THERESA BUCKNER AM Report Released Date/Time: Jun 25, 2023 08:42 AM Reporting Lab: [facility] [address] [facility] [address] Performing Lab: [facility] [address] [facility] [address] UREA NITROGEN 15 mg/dL 7-25 GLUCOSE 95 [...] and tobacco- related health factors from the [place] facility where the Encounter took place. Current Smoking Status This section includes the most current smoking, or tobacco-related health factor, from the [place] facility where the Encounter took place. Date/Time Current Smoking Status Comment [facility] Jan 09, 2023 05:09 PM VA-TOBACCO FORMER USER [facility] Tobacco Use History This section includes a history of the smoking, or tobacco-related health factors, that were collected on or before the date of the Encounter. The data comes from the [place] facility where the Encounter took place. Date/Time Smoking Status/Tobac co Use Comment Facility Jan 09, 2023 05:09 PM VA-TOBACCO QUIT 15 YRS OR MORE [facility] Jan 04, 2017 07:42 AM LIFETIME NON-TOBACCO USER [facility] Dec 26, 2015 09:20 AM QUIT TOBACCO USE > 7 YEARS AGO quit in 1997 [facility] October 27, 2003 03:29 PM HISTORY OF SMOKING Smoke free 6 years [facility] Jan 02, 2002 08:56 AM HISTORY OF SMOKING [facility] Jan 02, 2002 08:56 AM QUIT TOBACCO USE > 7 YEARS AGO [facility] Jan 14, 2001 11:25 AM HISTORY OF SMOKING non smoker 4 years [facility] Encounter Notes: All associated encounter notes This section contains the clinical notes associated to the Encounter. Date/Time Encounter Note(s) Provider Source Sep 06, 2023 03:31 PM NUTRITION NOTE: LOCAL TITLE: LOW INTENSITY/LOW ACUITY SUMMARY/TRANSITION NOTE STANDARD TITLE: NUTRITION NOTE DATE OF NOTE: SEP 06, 2023@15:31 ENTRY DATE: SEP 06, 2023@15:33:23 AUTHOR: MENDOZA ROSALES COSIGNER: URGENCY: STATUS: COMPLETED LOW INTENSITY/LOW ACUITY SUMMARY/TRANSITION NOTE Has ADDENDA DATE OF DISENROLLMENT: SEP 06, 2023 15:33 PROGRAM DISEASE MANAGEMENT PROTOCOL: L2 Telehealth 07/19/2023 Dmp Weight Management REASON FOR TRANSITION OF CARE: [place] lack of participation has never completed a session using the browser technology- 50 of no set up of program ACKNOWLEDGES UNDERSTANDING OF THE REASONS FOR DISENROLLMENT? Yes /CAREGIVER ACKNOWLEDGES UNDERSTANDING THAT BY ENDING PARTICIPATION IN THE L2 TELEHEALTH PROGRAM THEIR [facility]UAL [facility] WILL NOT BE AFFECTED? N/A QUESTIONS AND CONCERNS HAVE BEEN ADDRESSED? N/A ALTERNATIVES TO DISENROLLMENT REVIEWED WITH : [place] was encouraged to contact L2 Greeting Card Maker if he/she would like to re-enroll in the L2 Program in the future. L2 Greeting Card Maker contact details were provided to NUMBER OF HEALTH CHECK SESSIONS, WITH DISEASE SPECIFIC EDUCATION, COMPLETED WHILE PARTICIPATING IN L2 TELEHEALTH PROGRAM: Sessions completed: 0 NEVER COMPLETED A Critical Media TECHNOLOGY SESSION DURING HIS/HER PARTICIPATION IN THE L2 PROGRAM REVIEW OF GOAL(S) SET BY : 07/19/2023 L2 Enrollment Goal Weight Loss L2 Enrollment Weight Loss Strategy ACCOMPLISHED MOST RECENT GOAL(S): No FOLLOW-UP PLAN FOR CONTINUED DISEASE SPECIFIC, SELF-MANAGEMENT EDUCATION AND HEALTH COACHING: [place] will follow up with PACT team for usual care. /blair/ MENDOZA L MANEKAS,RD,LDN STAFF DIETITIAN Signed: 09/06/2023 15:35 Receipt Acknowledged By: 09/09/2023 11:05 /es/ SOLANGE MANZANARES TELEHEALTH PACK TRAIN DRIVER 09/12/2023 09:50 /es/ RUTH BLANCHARD 09/09/2023 07:22 /es/ Victorino Buckner DNP, INDEPENDENT INSURANCE ADJUSTER-BC, CNL Primary Care Nurse Practitioner 09/12/2023 ADDENDUM STATUS: COMPLETED Discharge letter mailed to . /blair/ RUTH BLANCHARD Signed: 09/12/2023 09:50 MENDOZA ROSALES [place] [facility]
--- OUTSIDE RECORDS SUMMARY | 2024-06-04 11:14 | XMS_ITS ---
Author Name [facility] [place] Address [address] [place] [id number] Care Team Providers Care Physician Office Specialist Name Role Phone DELIA CHRISTIANSEN Primary [...] Garner's Name Patient's Relationship to Policy Garner [facility] Apr 03, 2012 [id number] [phone] DIANE RASCON SPOUSE Selected Encounter This section includes the information on record at [place] for the Encounter. Date/Time Encounter Type Encounter Description Reason Pro vider Source Feb 11, 2024 10:16 AM Outpatient Encounter [facility] IHE Encounter Template Text not used by [place] Plan of Treatment: Future Appointments (+ 6 months) and Future Tests (+/- 45 days) The Plan of Treatment section includes future care activities for the patient from all [place] treatmentfacilities. This section includes future appointments and future orders which are active, pending or scheduled. Future Appointments This section includes appointments that were scheduled to occur 6 months from the date of the Encounter, up to a maximum of 20 appointments. The data comes from all [place] treatment facilities. Appointment Date/Time Appointment Type Appointme nt Facility Name Feb 28, 2024 02:00 PM AMBULATORY [facility] [place] [facility] Mar 09, 2024 03:30 PM AMBULATORY - MEDICINE [facility] [place] [facility] Mar 13, 2024 02:00 PM AMBULATORY - PS[facility]CHIATRY [facility] [place] [facility] Mar 24, 2024 11:00 AM AMBULATORY - MEDICINE [facility] [place] [facility] Mar 27, 2024 02:00 PM AMBULATORY - PS[facility]CHIATRY [facility] [place] [facility] Mar 31, 2024 02:30 PM AMBULATORY - NEUROLOGY [facility] [place] [facility] Mar 31, 2024 02:30 PM AMBULATORY - [place]UROLOGY [place] [facility] Apr 01, 2024 08:30 AM AMBULATORY - PS[facility]CHIATRY [facility] [place] [facility] Apr 24, 2024 02:00 PM AMBULATORY - PS[facility]CHIATRY [facility] [place] [facility] May 04, 2024 03:00 PM AMBULATORY - PS[facility]CHIATRY [facility] [place] [facility] May 15, 2024 02:00 PM AMBULATORY - PS[facility]CHIATRY [facility] [place] [facility] May 25, 2024 03:00 PM AMBULATORY - PS[facility]CHIATRY [facility] [place] [facility] Jun 12, 2024 02:00 PM AMBULATORY [facility] PS[facility]CHIATRY [facility] [place] [facility] Jun 23, 2024 03:30 PM AMBULATORY - PS[facility]CHIATRY [facility] [place] [facility] Jul 07, 2024 01:30 PM AMBULATORY - [place]UROLOGY [place] [facility] Jul 07, 2024 01:30 PM AMBULATORY - NEUROLOGY [facility] [place] [facility] Social History: Smoking Status (Most [...] Encounter took place. Date/Time Current Smoking Status Enzo alcocer Jan 09, 2023 05:09 PM [facility] [place] [facility] Tobacco Use History This section includes a history of the smoking, or tobacco-related health factors, that were collected on or before the date of the Encounter. The data comes from the [place] facility where the Encounter took place. Date/Time Smoking Status/Tobac co Use Comment Facility Jan 09, 2023 05:09 PM VA-TOBACCO QUIT 15 YRS OR MORE [facility] Jan 04, 2017 07:42 AM LIFETIME NON-TOBACCO USER [facility] Dec 26, 2015 09:20 AM QUIT TOBACCO USE > 7 YEARS AGO quit in 1997 [facility] October 27, 2003 03:29 PM HISTORY OF SMOKING Smoke free 6 years [facility] Jan 02, 2002 08:56 AM HISTORY OF SMOKING [facility] Jan 02, 2002 08:56 AM QUIT TOBACCO USE > 7 YEARS AGO [facility] Jan 14, 2001 11:25 AM HISTORY OF SMOKING non smoker 4 years [facility] Encounter Notes: All associated encounter notes This section contains the clinical notes associated to the Encounter. 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 is unable to attend appointment on 02/13 at 2pm. This securities underwriter canceled appointment and would like to reschedule. /blair/ ELVER MCKENZIE HAND KNITTER Signed: 02/11/2024 10:18 Receipt Acknowledged By: 02/11/2024 15:24 /blair/ DELILAH FRANCIS, PHD [facility] Post-Doctoral Psychology Trainee ELVER MCKENZIE [facility]
--- OUTSIDE RECORDS SUMMARY | 2024-06-04 11:14 | XMS_ITS ---
Author Name [facility] [place] [facility] [place] Address [address] [place] [id number] Care Team Providers Care Stud Driver Name Role Phone DELIA CHRISTIANSEN Primary Care Provider [facility] Insurance Providers: All historical and current [...] Name Patient's Relationship to Policy [facility] Apr 03, 2012 [id number] [phone] [id number] [phone] DIANE RASCON SPOUSE Selected Encounter This section includes the information on record at [place] for the Encounter. Date/Time Encounter Type Encounter Description Reason Provider Source Dec 20, 2023 02:00 PM PSYTX W PT 45 MINUTES [facility] - IND ICD-10-CM F50.81 Binge eating disorder TARIQ TRAN [place] Encounter Template Text not used by [place] Assessments - Encounter Diagnoses This section includes the primary and secondary diagnoses documented for the Encounter. Date/Time Primary/Secondary Diagnosis Diagnosis Name Provider Source Dec 20, 2023 04:11 PM PRIMARY Binge eating disorder KARSTEN FRANCIS [place] [facility] [place] [facility] Dec 20, 2023 04:11 PM SECONDARY Depression, unspecified KARSTEN FRANCIS [place] [facility] [place] [facility] Dec 20, 2023 04:11 PM SECONDARY Generalized anxiety disorder KARSTEN FRANCIS [facility] [place] [facility] Dec 20, 2023 04:11 PM SECONDARY Primary insomnia KARSTEN FRANCIS [place] [facility] [place] [facility] Plan of Treatment: Future Appointments (+ 6 months) and Future Tests (+/- 45 days) The Plan of Treatment section includes future care activities for the patient from all [place] treatmentfacilities. This section includes future appointments and future orders which are active, pending or scheduled. Future Appointments This section includes appointments that were scheduled to occur 6 months from the date of the Encounter, up to a maximum of 20 appointments. The data comes from all [place] treatment facilities. Appointment Date/Time Appointment Type Appointme nt Facility Name Jan 17, 2024 02:00 PM AMBULATORY - PSYCHIATRY [facility] [place] [facility] Jan 31, 2024 02:00 PM AMBULATORY - PSYCHIATRY [facility] [place] [facility] Feb 11, 2024 02:30 PM AMBULATORY - NEUROLOGY [facility] [place] [facility] Feb 28, 2024 02:00 PM AMBULATORY - PSYCHIATRY [facility] [place] [facility] Mar 09, 2024 03:30 PM AMBULATORY - MEDICINE [facility] [place] [facility] Mar 13, 2024 02:00 PM AMBULATORY - PSYCHIATRY [facility] [place] [facility] Mar 24, 2024 11:00 AM AMBULATORY - MEDICINE [facility] [place] [facility] Mar 27, 2024 02:00 PM AMBULATORY - PSYCHIATRY [facility] [place] [facility] Mar 31, 2024 02:30 PM AMBULATORY - NEUROLOGY [facility] [place] [facility] Mar 31, 2024 02:30 PM AMBULATORY - [place]OLOG[place] [facility] Apr 01, 2024 08:30 AM AMBULATORY - PSYCHIATRY [facility] [place] [facility] Apr 24, 2024 02:00 PM AMBULATORY - PSYCHIATRY [facility] [place] [facility] May 04, 2024 03:00 PM AMBULATORY - PSYCHIATRY [facility] [place] [facility] May 15, 2024 02:00 PM AMBULATORY - PS[facility]CHIATRY [facility] [place] [facility] May 25, 2024 03:00 PM AMBULATORY - PSYCHIATRY [facility] Jun 12, 2024 02:00 PM AMBULATORY - PSYCHIATRY [facility] Social History: Smoking Status (Most current) and Tobacco Use (All prior to encounter date) This section includes the most current, and the historical, smoking and tobacco- related health factors from the [place] facility where the Encounter took place. Current Smoking Status This section includes the most current smoking, or tobacco-related health factor, from the [place] facility where the Encounter took place. Date/Time Current Smoking Status Comment Facil it Jan 09, 2023 05:09 PM VA-TOBACCO FORMER USER [facility] Tobacco Use History This section includes a history of the smoking, or tobacco-related health factors, that were collected on or before the date of the Encounter. The data comes from the [place] facility where the Encounter took place. Date/Time Smoking Status/Tobac co Use Comment Facility Jan 09, 2023 05:09 PM VA-TOBACCO QUIT 15 YRS OR MORE [facility] Jan 04, 2017 07:42 AM LIFETIME NON-TOBACCO USER [facility] Dec 26, 2015 09:20 AM QUIT TOBACCO USE > 7 YEARS AGO quit in 1997 [facility] October 27, 2003 03:29 PM HISTORY OF SMOKING Smoke free 6 years [facility] Jan 02, 2002 08:56 AM HISTORY OF SMOKING [facility] Jan 02, 2002 08:56 AM QUIT TOBACCO USE > 7 YEARS AGO [facility] Jan 14, 2001 11:25 AM HISTORY OF SMOKING non smoker 4 years [facility] Encounter Notes: All associated encounter notes This section contains the clinical notes associated to the Encounter. Date/Time Encounter Note(s) Provider Source Dec 20, 2023 04:05 PM TELEHEALTH NOTE: LOCAL TITLE: [place] VIDEO CONNECT PSYCHOLOGY NOTE STANDARD TITLE: TELEHEALTH NOTE DATE OF NOTE: DEC 20, 2023@16:05 ENTRY DATE: DEC 20, 2023@16:05:45 AUTHOR: KARSTEN FRANCIS COSIGNER: TARIQ TRAN URGENCY: STATUS: COMPLETED [place] VIDEO CONNECT PSYCHOLOGY NOTE Has ADDENDA This [...] a 50 minute individual psychotherapy appointment on 12/20/2023 in the treatment of depression, anxiety and insomnia. DATA: The shared that things had been about the same over the past few weeks. He shared that work had been very busy which is good because it gives him something to focus on but he noted that it takes a toll on him. He endorsed continued sleep issues. He had not followed through on his plan to experiment with arriving/leaving work at times where he may interact more with other people. He shared the sense that he just hadn't felt like doing it. We processed this together. We reflected on the sense that now may be not the right time to engage in such behavioral experiements. The shared the sense that his sleep is still what is bothering him the most and feels like the root of current challenges. The provider offered the possiblity of doing focused work on sleep (CBT-i) and encouraged the to consider the option over the next few weeks. ASSESSMENT: The was on time to the appointment and was fully engaged. Grooming and dress were WNL. Gross motor function was WNL. Mood was mildly dysphoric and affect was congruent and varied appropriately. Speech was normal in rate, tone and prosody. Insight and judgement were intact. There was no evidence of A/VH or thought disorder. The [place] denied SI. DSM DIAGNOSES (w/ICD10 codes): - F40.10 Social Anxiety Disorder - F41.1 Generalized Anxiety Disorder - F51.01 Insomnia, with mental disorder and with medical condition, persistent - F32.A Unspecified Depressive Disorder - F50.81 Binge Eating Disorder PLAN: [place] will RTC for individual psychotherapy on 01/03/2024 with provider, Dr. Karsten Francis. [place] Video Connect ([facility]VC) Standard Documentation [facility] Clinician Resources Only: E911 (Emergency Call Relay Center): [phone] [employer] Crisis Line - 988 then press #1. [facility] Suicide Coordinator [phone], Ext. [phone]; Back-up Ext. [phone] [place] Police, [place] [phone] Introduction: Visit is being conducted by [place] [facility] Connect. identified with 2 identifiers: [X] Full Name [X] Date of [ ] VA ID Card Emergency Plan: [place] confirmed and/or provided the following information in case of emergency or technology failure. PATIENT PHONE - PHONE NUMBER [CELLULAR] - Is patient phone number correct, if not, enter below: 's phone number: DIANE RASCON [address], [place], [address] 's present location and address for appointment: Home address above. [place]'s emergency contact name and phone number: Wilda Rascon [place] reported that location is private and safe: Yes Informed Consent: informed of the risks and benefits of Telehealth video care. has the right to refuse video services. If refuses video visit, a [id number] visit will be scheduled. verbalized consent for this video visit: Yes provided consent for any other persons present for visit: N/A If yes, who and relationship to patient: Secure visit: Visit was locked for security and privacy:Yes /blair/ KARSTEN FRANCIS, PHD [facility] Post-Doctoral Psychology Trainee Signed: 12/20/2023 16:10 /blair/ TARIQ TRAN PSYD PSYCHOLOGIST Cosigned: 12/20/2023 17:17 12/20/2023 ADDENDUM STATUS: COMPLETED I have reviewed this case and concur with the clinical impressions and recommendations made by this trainee who is under my clinical supervision. /blair/ TARIQ TRAN PSYD PSYCHOLOGIST Signed: 12/20/2023 17:17 [facility]ANCIS [place] [facility]
--- OUTSIDE RECORDS SUMMARY | 2024-06-04 11:14 | XMS_ITS | Encounter Summary ---
Author Name [facility] [place] [facility] [place] Organization [facility] [place] Address [address] [place] [address] Care Team Providers Care Manager Site Name Role Phone DELIA CHRISTIANSEN [facility] Insurance Providers: All historical and current [...] Garner's Name Patient's Relationship to Policy Garner [facility] Apr 03, 2012 [id number] [phone] DIANE RASCON SP[place] Selected Encounter This section includes the information on record at [place] for the Encounter. Date/Time Encounter Type Encounter Description Reason Provider Source October 18, 2023 02:00 PM PSYTX W PT 45 MINUTES [facility] - IND ICD-10-CM F50.81 Binge eating disorder DIYA BENNETT Encounter Template Text not used by [place] Assessments - Encounter Diagnoses This section includes the primary and secondary diagnoses documented for the Encounter. Date/Time Primary/Secondary Diagnosis Diagnosis Name Provider Source October 18, 2023 03:29 PM PRIMARY Binge eating disorder KARSTEN FRANCIS [facility] [place] [facility] October 18, 2023 03:29 PM SECONDARY Depression, unspecified KARSTEN FRANCIS [place] [facility] [place] [facility] October 18, 2023 03:29 PM SECONDARY Generalized anxiety disorder KARSTEN FRANCIS [facility] [place] [facility] October 18, 2023 03:29 PM SECONDARY Primary insomnia KARSTEN FRANCIS [facility] [place] [facility] October 18, 2023 03:29 PM SECONDARY Tinnitus, unspecified ear KARSTEN FRANCIS [place] [facility] [place] [facility] Plan of Treatment: Future Appointments (+ 6 months) and Future Tests (+/- 45 days) The Plan of Treatment section includes future care activities for the patient from all [place] [facility]. This section includes future appointments and future orders which are active, pending or scheduled. Future Appointments This section includes appointments that were scheduled to occur 6 months from the date of the Encounter, up to a maximum of 20 appointments. The data comes from all [place] treatment facilities. Appointment Date/Time Appointment Type Appointme nt Facility Name October 30, 2023 03:30 PM AMBULATORY - NONE [facility] [place] [facility] October 30, 2023 03:30 PM AMBULATORY - NEUROLOGY [facility] November 01, 2023 02:00 PM AMBULATORY - PSYCHIATRY [facility] [place] [facility] Nov 15, 2023 02:00 PM AMBULATORY - PSYCHIATRY [facility] [place] [facility] Nov 28, 2023 02:00 PM AMBULATORY - PSYCHIATRY [facility] [place] [facility] Dec 02, 2023 03:30 PM AMBULATORY - MEDICINE [facility] [place] [facility] Dec 20, 2023 02:00 PM AMBULATORY - PSYCHIATRY [facility] [place] [facility] Jan 17, 2024 02:00 PM AMBULATORY - PSYCHIATRY [facility] [place] [facility] Jan 31, 2024 02:00 PM AMBULATORY - PSYCHIATRY [facility] [place] [facility] Feb 11, 2024 02:30 PM AMBULATORY - NEUROLOGY [facility] [place] [facility] Feb 28, 2024 02:00 PM AMBULATORY - PSYCHIATRY [facility] [place] [facility] Mar 09, 2024 03:30 PM AMBULATORY - MEDICINE [place] [facility] [place] [facility] Mar 13, 2024 02:00 PM AMBULATORY - PSYCHIATRY [place] [facility] [place] [facility] Mar 24, 2024 11:00 AM [facility]ULATORY [facility] [place] [facility] Mar 27, 2024 02:00 PM AMBULATORY - PSYCHIATRY [place] [facility] [place] [facility] Mar 31, 2024 02:30 PM AMBULATORY - NEUROLOGY [place] [facility] [place] [facility] Mar 31, 2024 02:30 PM AMBULATORY - NEUROLOGY [facility] Apr 01, 2024 08:30 AM [facility] Social History: Smoking Status (Most current) and [...] took place. Date/Time Current Smoking Status Comment [facility] Jan 09, 2023 05:09 PM [facility]-TOBACCO [facility] Tobacco Use History This section includes a history of the smoking, or tobacco-related health factors, that were collected on or before the date of the Encounter. The data comes from the [place] facility where the Encounter took place. Date/Time Smoking Status/Tobac co Use Comment Facility Jan 09, 2023 05:09 PM VA-TOBACCO QUIT 15 YRS OR MORE [place] [facility] [place] [facility] Jan 04, 2017 07:42 AM LIFETIME NON-TOBACCO [facility]ER [facility] Dec 26, 2015 09:20 AM QUIT TOBACCO USE > 7 YEARS AGO quit in 1997 [place] [facility] [facility] October 27, 2003 03:29 PM HISTORY OF SMOKING Smoke free 6 years [facility] [place] [facility] Jan 02, 2002 08:56 AM HISTORY OF SMOKING [facility] Jan 02, 2002 08:56 AM QUIT TOBACCO USE > 7 YEARS AGO [place] [facility] [place] [facility] Jan 14, 2001 11:25 AM HISTORY OF SMOKING non smoker 4 years [facility] Encounter Notes: All associated encounter notes This section contains the clinical notes associated to the Encounter. Date/Time Encounter Note(s) Provider Source October 18, 2023 02:59 PM TELEHEALTH NOTE: LOCAL TITLE: [place] VIDEO CONNECT PSYCHOLOGY NOTE STANDARD TITLE: TELEHEALTH NOTE DATE OF NOTE: OCTOBER 18, 2023@14:59 ENTRY DATE: OCTOBER 18, 2023@15:00:01 AUTHOR: KARSTEN FRANCIS COSIGNER: KERI BENNETT URGENCY: STATUS: COMPLETED Supervision: This case is being supervised by Keri Bennett, Ph.D., full- time Staff Psychologist. Diagnosis, treatment plan, and response to care are reviewed in one hour weekly individual supervision meetings. IDENTITY VERIFICATION [X] Patient Name [X] Visual recognition [ ] Birthdate [ ] Social Security # This was a 50 minute individual psychotherapy appointment in the treatment of depression, anxiety and insomnia. DATA: The shared that he had a difficult week where he had a lot of headaches, and a big argument with his . He didn't provide many details about the argument but noted a tendency to get angry at things [he] shouldn't, and we processed his feelings around this. We explored somatic symptoms over the past week (e.g., stomach not feeling right ), and discussed somatic connection to emotions. The said that he had plans to go out with a friend this evening. We processed his concerns about it. He said that he had built up a lot of stress over the week and so was feeling like he did not have a lot of bandwidth. We identified fear of embarassment and judgement from others, and processed this in detail. We discussed the general premise of behavioral activation, and worked to identify positive aspect of his upcoming meeting with his friend. The [place] shared that he was grateful for the space of therapy, and that he was feeling a little better after each of our meetings together. ASSESSMENT: The was on time to the appointment and was fully engaged. He gave some indications of weariness to provide information. Grooming and dress were WNL. Gross motor function was WNL. Mood was dysphoric and affect was congruent and varied appropriately. Speech was normal in rate, tone and prosody. Insight and judgement were intact. There was no evidence of A/VH or thought disorder. There were no significant changes in suicidal thoughts reported this session. The [place] reported intermittent passing thoughts over the course of two weeks (e.g., that his might be better off without him), without any suicidal plan or intent. DSM DIAGNOSES (w/ICD10 codes): - F40.10 Social Anxiety Disorder - F41.1 Generalized Anxiety Disorder - F51.01 Insomnia, with mental disorder and with medical condition, persistent - F32.A Unspecified Depressive Disorder - F50.81 Binge Eating Disorder PLAN: [place] will RTC for individual psychotherapy on 11/01/2023 with provider, Dr. Karsten Francis. [place] Ctrip Connect ([place]) Standard Documentation [facility] Clinician Resources Only: E911 (Emergency Call Relay Center): [phone] [employer] Crisis Line - 988 then press #1. [facility] Suicide Coordinator [phone], Ext. [phone]; Back-up Ext. [phone] [place] Police, [place] [phone] Introduction: Visit is being conducted by [place] [facility]. [place] identified with 2 identifiers: [X] Full Name [X] Date of [ ] [place] ID Card Emergency Plan: confirmed and/or provided the following information in case of emergency or technology failure. PATIENT PHONE - PHONE NUMBER [CELLULAR] - Is patient phone number correct, if not, enter below: 's phone number: DIANE RASCON [address], [place], [address] 's present location and address for appointment: Home address above. [place]'s emergency contact name and phone number: Wilda Graceensen [place] reported that location is private and safe: Yes Informed Consent: informed of the risks and benefits of Telehealth video care. has the right to refuse video services. If refuses video visit, a [id number] visit will be scheduled. [place] verbalized consent for this video visit: Yes provided consent for any other persons present for visit: N/A If yes, who and relationship to patient: Secure visit: Visit was locked for security and privacy:Yes /blair/ KARSTEN FRANCIS, PHD [facility] Post-Doctoral Psychology Trainee Signed: 10/18/2023 15:29 /blair/ Keri Bennett, PhD Clinical Psychologist, [facility] Cosigned: 10/18/2023 16:14 KARSTEN FRANCIS [facility]
--- OUTSIDE RECORDS SUMMARY | 2024-06-04 11:14 | XMS_ITS ---
Author Name [facility] [place] [facility] [place] [facility] [place] Address [address] [place] [id number] Care Team Providers Care Production Utility Worker Name Role Phone DELIA CHRISTIANSEN Primary Care Provider [facility] Insurance Providers: All historical and current [...] Name Patient's Relationship to Policy [facility] Apr 03, 2012 [id number] [phone] DIANE RASCON SPOUSE Selected Encounter This section includes the information on record at [place] for the Encounter. Date/Time Encounter Type Encounter Description Reason Provider Source Jan 31, 2024 02:00 PM PSYTX W PT 45 MINUTES [facility] - [facility] ICD-10-CM F51.01 Primary insomnia TARIQ TRAN [facility] Encounter Template Text not used by [place] Assessments - Encounter Diagnoses This section includes the primary and secondary diagnoses documented for the Encounter. Date/Time Primary/Secondary Diagnosis Diagnosis Name Provider Source Jan 31, 2024 03:21 PM PRIMARY Primary insomnia KARSTEN FRANCIS [place] [facility] [place] [facility] Jan 31, 2024 03:21 PM SECONDARY Depression, unspecified KARSTEN FRANCIS [place] [facility] [place] [facility] Jan 31, 2024 03:21 PM SECONDARY Generalized anxiety disorder PENNYKARSTEN BUCKLEY [facility] [place] [facility] Plan of Treatment: Future Appointments [...] 20 appointments. The data comes from all [place] treatment facilities. Appointment Date/Time Appointment Type Appointme nt Facility Name Feb 11, 2024 02:30 PM AMBULATORY - NEUROLOGY [facility] [place] [facility] Feb 28, 2024 02:00 PM AMBULATORY - PSYCHIATRY [facility] [place] [facility] Mar 09, 2024 03:30 PM AMBULATORY - MEDICINE [facility] [place] [facility] Mar 13, 2024 02:00 PM AMBULATORY - PSYCHIATRY [facility] [place] [facility] Mar 24, 2024 11:00 AM AMBULATORY - MEDICINE [facility] [place] [facility] Mar 27, 2024 02:00 PM AMBULATORY - PSYCHIATRY [facility] [place] [facility] Mar 31, 2024 02:30 PM AMBULATORY - NEUROLOGY [facility] [place] [facility] Mar 31, 2024 02:30 PM AMBULATORY - NEUROLOGY [facility] Apr 01, 2024 08:30 AM AMBULATORY - PSYCHIATRY [facility] [place] [facility] Apr 24, 2024 02:00 PM AMBULATORY - PSYCHIATRY [facility] [place] [facility] May 04, 2024 03:00 PM AMBULATORY - PSYCHIATRY [facility] [place] [facility] May 15, 2024 02:00 PM AMBULATORY - PSYCHIATRY [facility] [place] [facility] May 25, 2024 03:00 PM AMBULATORY - PSYCHIATRY [facility] [place] [facility] Jun 12, 2024 02:00 PM AMBULATORY - PSYCHIATRY [facility] [place] [facility] Jun 23, 2024 03:30 PM AMBULATORY - PSYCHIATRY [facility] [place] [facility] Jul 07, 2024 01:30 PM [facility] Jul 07, 2024 01:30 PM AMBULATORY - NEUROLOGY [facility] Social History: Smoking Status (Most current) and Tobacco Use (All prior to encounter date) This section includes the most current, and the historical, smoking and tobacco- related health factors from the [place] facility where the Encounter took place. Current Smoking Status This section includes the most current smoking, or tobacco-related health factor, from the [place] facility where the Encounter took place. Date/Time Current Smoking Status Comment Facil it Jan 09, 2023 05:09 PM VA-TOBACCO FORMER USER [facility] Tobacco Use History This section includes a history of the smoking, or tobacco-related health factors, that were collected on or before the date of the Encounter. The data comes from the [place] facility where the Encounter took place. Date/Time Smoking Status/Tobac co Use Comment Facility Jan 09, 2023 05:09 PM VA-TOBACCO QUIT 15 YRS OR MORE [facility] Jan 04, 2017 07:42 AM LIFETIME NON-TOBACCO USER [facility] Dec 26, 2015 09:20 AM QUIT TOBACCO USE > 7 YEARS AGO quit in 1997 [facility] October 27, 2003 03:29 PM HISTORY OF SMOKING Smoke free 6 years [facility] Jan 02, 2002 08:56 AM HISTORY OF SMOKING [facility] Jan 02, 2002 08:56 AM QUIT TOBACCO USE > 7 YEARS AGO [facility] Jan 14, 2001 11:25 AM HISTORY OF SMOKING non smoker 4 years [facility] Encounter Notes: All associated encounter notes This section contains the clinical notes associated to the Encounter. Date/Time Encounter Note(s) Provider Source Jan 31, 2024 03:15 PM TELEHEALTH NOTE: LOCAL TITLE: [place] VIDEO CONNECT PSYCHOLOGY NOTE STANDARD TITLE: TELEHEALTH NOTE DATE OF NOTE: JAN 31, 2024@15:15 ENTRY DATE: JAN 31, 2024@15:16:09 AUTHOR: KARSTEN FRANCIS COSIGNER: TARIQ TRAN URGENCY: STATUS: COMPLETED [place] [facility] PSYCHOLOGY NOTE Has ADDENDA This case is supervised by Dr. Tariq Tran, staff psychologist in the [facility]. Diagnosis, treatment plan, and response to care are reviewed on an ongoing basis in weekly individual supervision meetings. IDENTITY VERIFICATION [X] Patient Name [X] Visual recognition [ ] Birthdate [ ] Social Security # This was a 50 minute individual psychotherapy appointment on 01/31/2024 in the treatment of depression, anxiety and insomnia. DATA: The [facility] shared that last session had been uncomfortable for him. We explored this together, processing the theraputic relationship and the change process. The provider normalized his feelings and checked in at session's end. We continued discussing avoidance based coping strategies, and their impact. We discussed possible consults to psychiatry at this [place], and a referral to audiology for tinnitus support. ASSESSMENT: The was on time to the appointment and was fully engaged. Grooming and dress were WNL. Gross motor function was WNL. Mood was mildly dysphoric and affect was congruent and varied appropriately. Speech was normal in rate, tone and prosody. Insight and judgement were intact. There was no evidence of A/VH or thought disorder. No SI. PLAN: [facility] will RTC for individual psychotherapy on 02/14/2024 with provider, Dr. Karsten Francis. [place] [employer] ([facility]) Standard Documentation [facility] Clinician Resources Only: E911 (Emergency Call Relay Center): [phone] National Veterans Crisis Line - 988 then press #1. [facility] Suicide Coordinator [phone], Ext. [phone]; Back-up Ext. [phone] [place] Police, [place] [phone] Introduction: Visit is being conducted by [employer]. identified with 2 identifiers: [X] Full Name [X] Date of [ ] VA ID Card Emergency Plan: [facility] confirmed and/or provided the following information in case of emergency or technology failure. PATIENT PHONE - PHONE NUMBER [CELLULAR] - Is patient phone number correct, if not, enter below: [facility]'s phone number: DIANE Patel TARAH [address], [place], [address] 's present location and address for appointment: Home address above. [facility]'s emergency contact name and phone number: Wilda Rascon reported that location is private and safe: Yes Informed Consent: [facility] informed of the risks and benefits of Telehealth video care. [facility] has the right to refuse video services. If refuses video visit, a [id number] visit will be scheduled. [facility] verbalized consent for this video visit: Yes [facility] provided consent for any other persons present for visit: N/A If yes, who and relationship to patient: Secure visit: Visit was locked for security and privacy:Yes /blair/ KARSTEN FRANCIS, PHD [facility] Post-Doctoral Psychology Trainee Signed: 01/31/2024 15:21 /blair/ TARIQ TRAN PSYD PSYCHOLOGIST Cosigned: 01/31/2024 17:21 01/31/2024 ADDENDUM STATUS: COMPLETED I have reviewed this case and concur with the clinical impressions and recommendations made by this trainee who is under my clinical supervision. /blair/ TARIQ TRAN PSYD PSYCHOLOGIST Signed: 01/31/2024 17:21 KARSTEN FRANCIS [facility]
--- OUTSIDE RECORDS SUMMARY | 2024-06-04 11:14 | XMS_ITS ---
Author Name [facility] [place] [facility] [place] [facility] [place] Address [address] [place] [address] Care Team Providers Care Topographical Surveyor Name Role Phone DELIA CHRISTIANSEN Primary Care [...] Garner's Name Patient's Relationship to Policy Garner [facility] Apr 03, 2012 [id number] [phone] DIANE RASCON SPOUSE Selected Encounter This section includes the information on record at [place] for the Encounter. Date/Time Encounter Type Encounter Description Reason Provider Source Mar 09, 2024 03:30 PM OFF/OP EST OCTOBER X REQ PHY/QHP PRIMARY CARE/MEDICINE ICD-10-CM Z23 Encounter for immunization CESAR OSBORNE [place] Encounter Template Text not used by [place] Assessments - Encounter Diagnoses This section includes the primary and secondary diagnoses documented for the Encounter. Date/Time Primary/Secondary Diagnosis Diagnosis Name Provider Source Mar 09, 2024 03:49 PM PRIMARY Encounter for immunization CESAR OSBORNE [place] [facility] [place] [facility] Plan of Treatment: Future Appointments (+ 6 months) and Future Tests (+/- 45 days) The Plan of Treatment section includes future care activities for the patient from all [place] [facility]. This section includes future appointments and future orders which are active, pending or scheduled. Future Appointments This section includes appointments that were scheduled to occur 6 months from the date of the Encounter, up to a maximum of 20 appointments. The data comes from all [facility] facilities. Appointment Date/Time Appointment Type Appointme nt Facility Name Mar 13, 2024 02:00 PM AMBULATORY - PSYCHIATRY [facility] [place] [facility] Mar 24, 2024 11:00 AM AMBULATORY - MEDICINE [place] [facility] [place] [facility] Mar 27, 2024 02:00 PM AMBULATORY - PSYCHIATRY [place] [facility] [place] [facility] Mar 31, 2024 02:30 PM AMBULATORY - NEUROLOGY [facility] [place] [facility] Mar 31, 2024 02:30 PM AMBULATORY - [place]UROLOGY [place] [facility] Apr 01, 2024 08:30 AM AMBULATORY - PSYCHIATRY [place] [facility] [place] [facility] Apr 24, 2024 02:00 PM AMBULATORY - PSYCHIATRY [facility] [place] [facility] May 04, 2024 03:00 PM AMBULATORY - PSYCHIATRY [facility] [place] [facility] May 15, 2024 02:00 PM AMBULATORY - PSYCHIATRY [facility] [place] [facility] May 25, 2024 03:00 PM AMBULATORY - PSYCHIATRY [facility] [place] [facility] Jun 12, 2024 02:00 PM AMBULATORY - PSYCHIATRY [place] [facility] [place] [facility] Jun 23, 2024 03:30 PM AMBULATORY - PSYCHIATRY [facility] [place] [facility] Jul 07, 2024 01:30 PM AMBULATORY - [place]OLOGY [place] [facility] Jul 07, 2024 01:30 PM AMBULATORY - NEUROLOGY [place] [facility] [place] [facility] Active, Pending, and Scheduled Orders This section includes a listing of several types of active, pending, and scheduled orders, including clinic medications orders, diagnostic test orders, procedure orders and consult orders; where the start date of the order is 45 days before the date of the Encounter or 45 days after the date of theEncounter. The data comes from all [place] treatment facilities. Test Date/Time Test Type Test Details Facility Name Apr 07, 2024 10:17 AM Consult Order COMMUNITY CARE-OPTOMETRY ROUTINE EYE EXAM Cons [employer] [facility] Immunizations: All administered on the encounter date This section contains immunizations associated to the Encounter. Immunization Series Date Issued Reaction Comments COVID-19 (MODERNA), MRNA, LN P-S, PF, 50 MCG/0.5 ML (AGES 12+ YEARS) Mar 09, 2024 [facility] RECOMBINANT Mar 09, 2024 Social History: Smoking Status (Most current) and Tobacco Use (All prior to encounter date) This section includes the most current, and the historical, smoking and tobacco- related health factors from the [place] facility where the Encounter took place. Current Smoking Status This section includes the most current smoking, or tobacco-related health factor, from the [place] facility where the Encounter took place. Date/Time Current Smoking Status Comment [facility] Jan 09, 2023 05:09 PM VA-TOBACCO FORMER USER [facility] Tobacco Use History This section includes a history of the smoking, or tobacco-related health factors, that were collected on or before the date of the Encounter. The data comes from the [place] facility where the Encounter took place. Date/Time Smoking Status/Tobac co Use Comment Facility Jan 09, 2023 05:09 PM VA-TOBACCO QUIT 15 YRS OR MORE [facility] Jan 04, 2017 07:42 AM LIFETIME NON-TOBACCO USER [facility] Dec 26, 2015 09:20 AM QUIT TOBACCO USE > 7 YEARS AGO quit in 1997 [facility] October 27, 2003 03:29 PM HISTORY OF SMOKING Smoke free 6 years [facility] Jan 02, 2002 08:56 AM HISTORY OF SMOKING [facility] Jan 02, 2002 08:56 AM QUIT TOBACCO USE > 7 YEARS AGO [facility] Jan 14, 2001 11:25 AM HISTORY OF SMOKING non smoker 4 years [facility] Encounter Notes: All associated encounter notes This section contains the clinical notes associated to the Encounter. Date/Time Encounter Note(s) Provider Source Mar 09, 2024 03:45 PM PREVENTIVE MEDICINE NURSING NOTE: LOCAL TITLE: CLINICAL REMINDERS/NURSING STANDARD TITLE: PREVENTIVE MEDICINE NURSING NOTE DATE OF NOTE: MAR 09, 2024@15:45 ENTRY DATE: MAR 09, 2024@15:45:08 AUTHOR: LOREN OSBORNE COSIGNER: URGENCY: STATUS: COMPLETED Homelessness/Food Insecurity Screen: In the past 2 months, have you been living in stable housing that you own, rent, or stay in as part of a household? Yes - Living in stable housing. Are you worried or concerned that in the next 2 months you may NOT have stable housing that you own, rent, or stay in as part of a household? No - Not worried about housing near future The [place] reports the following: Within the past 12 months, you worried whether your food would run out before you got money to buy more. Never true Within the past 12 months, the food you bought just didn't last and you didn't have money to get more. Never true Avg Risk Colorectal Cancer Screen: AVERAGE RISK colorectal cancer screening is due based on information available to this clinical reminder Prior/outside colonoscopy results: [place] done 08/13/23, repeat 3yrs In [facility] Date: August 13, 2023 Colonoscopy reminder set 2.5 years from MAR 09, 2024. RHS Screen: RHS Screen Session Format: Face to Face Environmental Check Upon inquiry, the individual reports that the environment is safe to proceed. Informed Consent to Screen and Document The individual consents to proceed with screening. The individual consents to documentation of responses. PRIMARY SCREEN: In the past 12 months, how often did a current or former intimate partner (e.g., boyfriend, girlfriend, , , sexual partner): 1. Scream or curse at you Never 2. Insult or talk down to you Never 3. Threaten you with harm Never 4. Physically hurt you Never 5. Force or pressure you to have sexual contact against your will, or when you were unable to say no Never ?? The HITS tool (items 1-4 above) is [place] copyright protected by Nahun Miller MD, and the user has full rights to use it throughout the [place] system. PRIMARY SCREEN RESULT: The Primary Screen is NEGATIVE. The individual answered never to all forms of IPV above (i.e., answered never to all 5 items) The individual accepts education and/or resources: No EDUCATION: Other: Not interested at this time COVID-19 Immunization: Moderna Monovalent (Spikevax) Administered: COVID-19 (MODERNA), MRNA, LNP-S, PF, 50 MCG/0.5 ML (AGES 12+ YEARS) Date Administered: Mar 09, 2024 15:30 Series: [facility] Attendant: [employer]. Lot: [id number] Exp Date: October 23, 2024 NDC: 272564628833 Admin Route/Site: INTRAMUSCULAR/LEFT DELTOID Dosage: 0.5mL Vaccine Information Statement(s): COVID-19 MRNA VACCINE (12+ YRS) VACCINE VIS Mar 21, 2023 ([facility]) Order By: Policy Administered By: Loren Osborne Vaccine administered without complications. Herpes Zoster (Shingles) Vaccine: Administered: ZOSTER RECOMBINANT Date Administered: Mar 09, 2024 15:30 Series: Complete Welcome Center Attendant: [employer] Lot: [id number] Exp Date: Nov 16, 2025 NDC: 309066594040 Admin Route/Site: INTRAMUSCULAR/RIGHT DELTOID Dosage: 0.5mL Vaccine Information Statement(s): RECOMBINANT ZOSTER VACCINE VIS Jul 07, 2021 ([facility]) Order By: Policy Administered By: Loren Osborne Vaccine Information Sheet (VIS) was given to the patient/caregiver, education regarding adverse reactions was discussed, as well as barriers to learning, if any, were acknowledged. /blair/ Loren Osborne MSN RN CNL Primary Care RN Signed: 03/09/2024 15:49 LOREN OSBORNE CNTRL [facility]
--- OUTSIDE RECORDS SUMMARY | 2024-06-04 11:14 | XMS_ITS | Encounter Summary ---
Author Name [facility] [place] [facility] [place] [facility] [place] Address [address] [place] [id number] Care Team Providers Care Epitaxial Reactor Operator Name Role Phone DELIA CHRISTIANSEN Primary Care Provider [facility] Insurance Providers: All historical and current Section Date Range: From patient's date of to the date document was created. This section includes the names of all active insurance providers for the patient. Insurance Provider Type of Coverage Plan Name Start of Policy Coverage End of Policy Coverage Group Number Member ID Insurance Provider's Telephone Number Policy Garner's Name Patient's Relationship to Policy Garner [facility] Apr 03, 2012 [id number] DIANE RASCON SPOUSE Selected Encounter This section includes the information on record at [place] for the Encounter. Date/Time Encounter Type Encounter Description Reason Provider Source October 04, 2023 02:00 PM PSYTX W PT [facility] - IND ICD-10-CM F50.81 Binge eating disorder DIYA BENNETT Encounter Template Text not used by [place] Assessments - Encounter Diagnoses This section includes the primary and secondary diagnoses documented for the Encounter. Date/Time Primary/Secondary Diagnosis Diagnosis Name Provider Source October 04, 2023 04:12 PM PRIMARY Binge eating disorder KARSTEN FRANCIS [facility] [place] [facility] October 04, 2023 04:12 PM SECONDARY Depression, unspecified KARSTEN FRANCIS [facility] [place] [facility] October 04, 2023 04:12 PM SECONDARY Generalized anxiety disorder KARSTEN FRANCIS [facility] [place] [facility] October 04, 2023 04:12 PM SECONDARY Primary insomnia KARSTEN FRANCIS [place] [facility] [place] [facility] Plan of Treatment: Future Appointments (+ 6 months) and Future Tests (+/- 45 days) The Plan of Treatment section includes future care activities for the patient from all [place] treatmentfacilities. This section includes future appointments and future orders which are active, pending or scheduled. Future Appointments This section includes appointments that were scheduled to occur 6 months from the date of the Encounter, up to a maximum of 20 appointments. The data comes from all [place] treatment facilities. Appointment Date/Time Appointment Type Appointme nt Facility Name October 18, 2023 02:00 PM AMBULATORY - PS[facility]IATRY [facility] [place] [facility] October 30, 2023 03:30 PM AMBULATORY - NONE [facility] [place] [facility] October 30, 2023 03:30 PM AMBULATORY - [facility]UROLOGY [facility] [place] [facility] November 01, 2023 02:00 PM AMBULATORY - PS[facility]CHIATRY [facility] [place] [facility] Nov 15, 2023 02:00 PM AMBULATORY - PS[facility]CHIATRY [facility] [place] [facility] Nov 28, 2023 02:00 PM AMBULATORY - PS[facility]CHIATRY [facility] [place] [facility] Dec 02, 2023 03:30 PM AMBULATORY - MEDICINE [facility] [place] [facility] Dec 20, 2023 02:00 PM AMBULATORY - PS[facility]CHIATRY [facility] [place] [facility] Jan 17, 2024 02:00 PM AMBULATORY - PS[facility]CHIATRY [facility] [place] [facility] Jan 31, 2024 02:00 PM AMBULATORY - PS[facility]CHIATRY [facility] [place] [facility] Feb 11, 2024 02:30 PM AMBULATORY - NEUROLOGY [facility] [place] [facility] Feb 28, 2024 02:00 PM AMBULATORY - PSYCHIATRY [facility] [place] [facility] Mar 09, 2024 03:30 PM AMBULATORY - MEDICINE [facility] [place] [facility] Mar 13, 2024 02:00 PM AMBULATORY - PS[facility]CHIATRY [facility] [place] [facility] Mar 24, 2024 11:00 AM AMBULATORY - [facility] Mar 27, 2024 02:00 PM AMBULATORY - [place]IATRY [place] [facility] [place] [facility] Mar 31, 2024 02:30 PM AMBULATORY [place] [facility] [place] [facility] Mar 31, 2024 02:30 PM AMBULATORY - NEUROLOGY [facility] [place] [facility] Apr 01, 2024 08:30 AM [facility] Social History: Smoking Status (Most current) and Tobacco Use (All prior to encounter date) This section includes the most current, and the historical, smoking and tobacco- related health factors from the [place] facility where the Encounter took place. Current Smoking Status This section includes the most current smoking, or tobacco-related health factor, from the [place] facility where the Encounter took place. Date/Time Current Smoking Status Comment [facility] Jan 09, 2023 05:09 PM VA-TOBACCO FORMER USER [facility] Tobacco Use History This section includes a history of the smoking, or tobacco-related health factors, that were collected on or before the date of the Encounter. The data comes from the [place] facility where the Encounter took place. Date/Time Smoking Status/Tobac co Use Comment Facility Jan 09, 2023 05:09 PM VA-TOBACCO QUIT 15 YRS OR MORE [facility] Jan 04, 2017 07:42 AM LIFETIME NON-TOBACCO [facility]ER [facility] Dec 26, 2015 09:20 AM QUIT TOBACCO USE > 7 YEARS AGO quit in 1997 [facility] October 27, 2003 03:29 PM HISTORY OF SMOKING Smoke free 6 years [facility] Jan 02, 2002 08:56 AM HISTORY OF SMOKING [facility] Jan 02, 2002 08:56 AM QUIT TOBACCO USE > 7 YEARS AGO [facility] Jan 14, 2001 11:25 AM HISTORY OF SMOKING non smoker 4 years [facility] Encounter Notes: All associated encounter notes This section contains the clinical notes associated to the Encounter. Date/Time Encounter Note(s) Provider Source October 04, 2023 12:54 PM TELEHEALTH NOTE: LOCAL TITLE: [place] [facility] PSYCHOLOGY NOTE STANDARD TITLE: TELEHEALTH NOTE DATE OF NOTE: OCTOBER 04, 2023@12:54 ENTRY DATE: OCTOBER 04, 2023@12:54:59 AUTHOR: KARSTEN FRANCIS COSIGNER: KERI BENNETT URGENCY: [...] anxiety and insomnia. DATA: The shared that his sleep initiation had improved since starting a new higher dose of trazadone (from 100mg to 200mg via outside psychiatrist in community). He also noted subjective sleep-quality improvements. We processed the 's exerience last session of disclosing eating-related concerns. He shared the sense that it had been felt like a relief to share with someone. He shared the sense that our session had been helpful so far, as he had not had much recent opportunity to confide or process with others. We explored the connections between the 's various presenting concerns, and engaged in some psychoeducation around anxiety responses and the moderating role cognition serves. We identified a consistent tendency towards control as a means to claire symptoms and how at times this may worsten symptoms. We again touched upon ACT as a potential treatment approach. ASSESSMENT: The Sesser was on time to the appointment and [...] no indications of any increases in risk. DSM DIAGNOSES (w/ICD10 codes): - F40.10 Social Anxiety Disorder - F41.1 Generalized Anxiety Disorder - F51.01 Insomnia, with mental disorder and with medical condition, persistent - F32.A Unspecified Depressive Disorder - F50.81 Binge Eating Disorder PLAN: will RTC for individual psychotherapy on 10/18/2023 with provider, Dr. Karsten Francis. In our next session we will continue our shared decision making. [place] [facility] Connect (VVC) Standard Documentation VV Clinician Resources Only: E911 (Emergency Call Relay Center): [phone] [facility] Crisis Line - 988 then press #1. [place] Suicide Coordinator [phone], Ext. [phone]; Back-up Ext. [phone] [place] Police, [place], [place] [phone] Introduction: Visit is being conducted by [place] [facility] [facility]. Sesser identified with 2 identifiers: [X] Full Name [X] Date of [ ] [place] ID Card Emergency Plan: confirmed and/or provided the following information in case of emergency or technology failure. PATIENT PHONE - PHONE NUMBER [CELLULAR] - Is patient phone number correct, if not, enter below: 's phone number: DIANE Patel [address], [place], [address] 's present location and address for appointment: Home address above. Sesser's emergency contact name and phone number: Wilda Tarah Sesser reported that location is private and safe: Yes Informed Consent: Sesser informed of the risks and benefits of Telehealth video care. Sesser has the right to refuse video services. If refuses video visit, a [id number] visit will be scheduled. Sesser verbalized consent for this video visit: Yes Sesser provided consent for any other persons present for visit: N/A If yes, who and relationship to patient: Secure visit: Visit was locked for security and privacy:Yes /blair/ KARSTEN FRANCIS, PHD [facility] Post-Doctoral Psychology Trainee Signed: 10/04/2023 16:12 /blair/ Keri Bennett, Clinical Psychologist, [facility] Cosigned: 10/04/2023 16:34 [facility] [facility]
--- OUTSIDE RECORDS SUMMARY | 2024-06-04 11:14 | XMS_ITS | Encounter Summary ---
Author Name [facility] [place] [facility] [place] [facility] [place] [facility] [place] Address [address] [place] [address] Care Team Providers Care Research Rn Spec Name Role Phone DELIA CHRISTIANSEN Primary Care Provider [facility] Insurance Providers: All historical and current [...] Garner's Name Patient's Relationship to Policy Garner [facility] Apr 03, 2012 [id number] [phone] [id number] DIANE RASCON SPOUSE Selected Encounter This section includes the information on record at [place] for the Encounter. Date/Time Encounter Type Encounter Description Reason Provider Source Mar 24, 2024 11:00 AM Outpatient Encounter GENERAL INTERNAL MEDICINE ICD-10-CM Z02.89 Encounter for other administrative examinations MARCELO HERNANDEZ [place] Encounter Template Text not used by [place] Assessments - Encounter Diagnoses This section includes the primary and secondary diagnoses documented for the Encounter. Date/Time Primary/Secondary Diagnosis Diagnosis Name Provider Source Mar 24, 2024 04:08 PM PRIMARY Encounter for other administrative examinations MARCELO HERNANDEZ [facility] Plan of Treatment: Future Appointments (+ 6 months) and Future Tests (+/- 45 days) The Plan of Treatment section includes future care activities for the patient from all [place] [facility]. This section includes future appointments and future orders which are active, pending or scheduled. Future Appointments This section includes appointments that were scheduled to occur 6 months from the date of the Encounter, up to a maximum of 20 appointments. The data comes from all [facility]. Appointment Date/Time Appointment Type Appointme nt Facility Name Mar 27, 2024 02:00 PM AM[place]UL[place] [facility] [place] [facility] Mar 31, 2024 02:30 PM [place] [facility] [place] [facility] Mar 31, 2024 02:30 PM AMBULATORY - [place]UROLOG[place] [facility] Apr 01, 2024 08:30 AM AM[place]UL[place]ORY [place] [facility] [place] [facility] Apr 24, 2024 02:00 PM AMBUL[place]ORY [place] [facility] [place] [facility] May 04, 2024 03:00 PM AM[place]UL[place] [facility] [place] [facility] May 15, 2024 02:00 PM AM[place] [facility] [facility] May 25, 2024 03:00 PM AM[place]UL[place]ORY [place] [facility] [place] [facility] Jun 12, 2024 02:00 PM AMBULATORY [place] [facility] [place] [facility] Jun 23, 2024 03:30 PM AM[place]UL[place]ORY [place] [facility] [facility] Jul 07, 2024 01:30 PM AMBULATORY - NEUROLOGY [facility] Jul 07, 2024 01:30 PM AM[place]UL[place]ORY [place]OLOGY [place] [facility] [place] [facility] Active, Pending, and Scheduled Orders This section includes a listing of several types of active, pending, and scheduled orders, including clinic medications orders, diagnostic test orders, procedure orders and consult orders; where the start date of the order is 45 days before the date of the Encounter or 45 days after the date of theEncounter. The data comes from all [facility]. Test Date/Time Test Type Test Details Facility Name Apr 07, 2024 10:17 AM Consult Order COMMUNITY CARE-OPTOMETRY ROUTINE EYE EXAM Cons Mall [facility] [place] [facility] Social History: Smoking Status (Most current) and Tobacco Use (All prior to encounter date) This section includes the most current, and the historical, smoking and tobacco- related health factors from the [place] facility where the Encounter took place. Current Smoking Status This section includes the most current smoking, or tobacco-related health factor, from the [place] facility where the Encounter took place. Date/Time Current Smoking Status Comment [facility] Jan 09, 2023 05:09 PM VA-TOBACCO FORMER USER [facility] Tobacco Use History This section includes a history of the smoking, or tobacco-related health factors, that were collected on or before the date of the Encounter. The data comes from the [place] facility where the Encounter took place. Date/Time Smoking Status/Tobac co Use Comment Facility Jan 09, 2023 05:09 PM VA-TOBACCO QUIT 15 YRS OR MORE [facility] Jan 04, 2017 07:42 AM LIFETIME NON-TOBACCO USER [facility] Dec 26, 2015 09:20 AM QUIT TOBACCO USE > 7 YEARS AGO quit in 1997 [facility] October 27, 2003 03:29 PM HISTORY OF SMOKING Smoke free 6 years [facility] Jan 02, 2002 08:56 AM HISTORY OF SMOKING [facility] Jan 02, 2002 08:56 AM QUIT TOBACCO USE > 7 YEARS AGO [facility] Jan 14, 2001 11:25 AM HISTORY OF SMOKING non smoker 4 years [facility] Encounter Notes: All associated encounter notes This section contains the clinical notes associated to the Encounter. Date/Time Encounter Note(s) Provider Source Mar 24, 2024 11:00 AM C & P EXAMINATION NOTE: LOCAL TITLE: COMPENSATION AND PENSION EXAM STANDARD TITLE: C & P EXAMINATION NOTE DATE OF NOTE: MAR 24, 2024@11:00 ENTRY DATE: MAR 24, 2024@16:05:52 AUTHOR: NAIDA HERNANDEZ EXP COSIGNER: URGENCY: STATUS: COMPLETED Sleep Apnea Disability Benefits Questionnaire Name of patient/: DIANE RASCON ([id number]) Is this DBQ being completed in conjunction with a [place] [id number], C&P Examination Request? [X] Yes [ ] No How was the examination completed? (check all that apply) [ ] In-person examination [X] Records reviewed [ ] Examination via approved video telehealth [ ] Other, please specify in comments box Comments: * 03/06/2024 'S CLAIM: - Obstructive Sleep Apnea secondary to mental health. VERÓNICA and Evidence Review Indicate method used to obtain medical information to complete this document: [X] Review of available records (without in-person or video telehealth examination) using the Acceptable Clinical Evidence (VERÓNICA) process because the existing medical evidence provided sufficient information on which to prepare the questionnaire and such an examination will likely provide no additional relevant evidence. Evidence Review Evidence reviewed (check all that apply): [X] [place] [X] [place] electronic health record [X] Other, please identify other evidence reviewed. VBMS, JLV, VISTAIMAGING, CPRS Evidence Comments: * 01/30/2024 VBA RATING DECISION: Service connection for generalized anxiety disorder with major depressive disorder is granted. 1. Diagnosis Does the have or has he/she ever had sleep apnea? [X] Yes [ ] No [X] Obstructive Date of diagnosis: 06/08/2023 VIA AMBULATORY POLYSOMNOGRAM 2. Medical history a. Describe the history (including onset and course) of the [place]'s sleep disorder condition (brief summary): REVIEW OF AVAILABLE MEDICAL EVIDENCE: * 02/06/2024 PRIVATE RECORDS: seen for follow-up, last seen August 06, 2023 when he was set up with PAP. He has been using CPAP since 08/06/2023. Sleep continuity and quality has improved. Overall sleep is improved he generally feels alert duing the day. * 12/02/2023 weight = 386 lbs. * 09/19/2023 PSYCHOTHERAPY: The disclosed to the provider patterns of overeating, and consequent issues with weight gain. The [place] shared that he eats at times until uncomfortably full, is embarassed about that his eating, and struggles to control his eating at times. He described an emotional connection his eating. The [place]'s report suggests that he additionall meets criteria for a Binge Eating Disorder. 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 He is not sure that he needs to talk to someone. He is diagnosed with insomnia, anxiety, and depression. He reported that it all stems from tinnitus. He said that it drives him crazy . DSM5 DIAGNOSES: Anxiety D/O due to medical condition; Depression due to another medical condition; Tinnitus; Psychological and behavioral factors due to Tinnitus VII: SUMMARY AND IMPRESSIONS: Mr. Rascon is a 52yo , , [employer] . He has not past mental health history and primary mental health concerns have stemmed from Tinnitus. endorsed symptoms of depression and anxiety related to living and managing his life with Tinnitus. He identified occupational and social impairment related to this. He is engaged in medication management in the community and feels that psychotherapy may be helpful to identify ways to cope with symptoms of depressed and anxious mood. * 06/08/2023 Diagnosed with JW * 03/29/2023 PRIVATE RECORDS: Seen for the evaluation of daytime sleepiness, snoring, gasping arousals, witnessed apnea. EXAM: Neck circumference 20 inches. Mouth and Pharynx: Booker palate position is 4. Tonsils not visualized. * 03/13/2023 weight = 382 lbs. * 01/04/2017 weight = 347 lbs. * 11/22/2014 weight = 339 lbs. * 06/16/2012 weight = 318.5 lbs. * 04/06/2011 weight = 312.9 lbs * 01/21/2009 weight = 299.1 lbs * 11/20/2005 weight = 296.6 lbs * 10/27/2003 PRIMARY CARE NOTE: WEIGHT 282. LBS. 33 year-old male with no significant past medical history is here for annual follow up visit. Offers no complaints, patient expressed his concern about overweight, reports he does not eat too much, and cannot lose weight. * 06/14/2001 weight = 279 lbs. * 02/01/2000 PRIMARY CARE NOTE: Overall feels well, physically active. 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 WEIGHT = 266 LBS. * 01/13/1999 weight = 270 lbs. * 10/06/1992 DATE SEPARTED ACTIVE DUTY PER DD214 * 08/16/1992 STR SEPARATION: Medical: weight 210 lbs. normal psychiatric. Self Assessment: No frequent trouble sleeping. NO nervous trouble of any sort. * 04/22/1990 DATE ENTERED ACTIVE DUTY PER DD214 * 01/18/1989 STR ENLISTMENT: Medical: weight 192 lbs, build heavy. Self Assessment: no frequent trouble sleeping. NO nervous trouble of any sort. b. Is continuous medication required for control of a sleep disorder condition? [ ] Yes [X] No c. Does the require the use of a breathing assistance device? [ ] Yes [X] No d. Does the [place] require the use of a continuous positive airway pressure (CPAP) machine? [X] Yes [ ] No 3. Findings, signs and symptoms ----- Does the [place] currently have any findings, signs or symptoms attributable to sleep apnea? [ ] Yes [X] No 4. Other pertinent physical findings, complications, conditions, signs, symptoms and scars a. Does the have any other pertinent physical findings, complications, conditions, signs or symptoms related to any conditions listed in the Diagnosis Section above? [X] Yes [ ] No If yes, describe (brief summary): BMI GREATER THAN 30. Booker palate position of 4, tonsils not visualized. b. Does the have any scars (surgical or otherwise) related to any conditions or to the treatment of any conditions listed in the Diagnosis Section above? [ ] Yes [X] No c. Comments, if any: N/A 5. Diagnostic testing a. Has a sleep study been performed? [X] Yes [ ] No If yes, does the [place] have documented sleep disorder breathing? [X] Yes [ ] No Date of sleep study: 06/08/2023 Facility where sleep study performed, if known: AMBULATORY POLYSOMNOGRAM Results: MODERATE DEGREE OF OBSTRUCTIVE SLEEP APNEA. b. Are there any other significant diagnostic test findings and/or results? [ ] Yes [X] No 6. Functional impact Does the 's sleep apnea impact his or her ability to work? [ ] Yes [X] No 7. Remarks, if any: NO ADDITIONAL COMMENTS Medical Opinion Disability Benefits Questionnaire Name of patient/: DIANE RASCON ([id number]) VERÓNICA and Evidence Review Indicate method used to obtain medical information to complete this document: [X] Review of available records (without in-person or video telehealth examination) using the Acceptable Clinical Evidence (VERÓNICA) process because the existing medical evidence provided sufficient information on which to prepare the questionnaire and such an examination will likely provide no additional relevant evidence. Evidence Review Evidence reviewed (check all that apply): [X] [place] [X] [place] electronic [place] [X] Other (please identify other evidence reviewed): VBMS, JLV, VISTAIMAGING, CPRS Evidence Comments: * 01/30/2024 VBA RATING DECISION: Service connection for generalized anxiety disorder with major depressive disorder is granted. MEDICAL OPINION SUMMARY RESTATEMENT OF REQUESTED OPINION: a. Opinion from general remarks: THE 2507 DATED MARCH 09, 2024 REQUESTS A SECONDARY SERVICE CONNECTION MEDICAL OPINION: Is the [place]'s obstructive sleep apnea at least as likely as not (likelihood is at least approximately balanced or nearly equal, if not higher) proximately due to or the result of his [place] mental health condition (generalized anxiety disorder with major depressive disorder)? b. Indicate type of exam for which opinion has been requested: obstructive sleep apnea TYPE OF MEDICAL OPINION PROVIDED: [ SECONDARY SERVICE CONNECTION ] The claimed condition is less likely than not (likelihood is less than approximately balanced or nearly equal) proximately due to or the result of the 's service connected condition. c. Rationale: REVIEW OF AVAILABLE MEDICAL EVIDENCE: * 02/06/2024 PRIVATE RECORDS: seen for follow-up, last seen August 06, 2023 when he was set up with PAP. He has been using CPAP since 08/06/2023. Sleep continuity and quality has improved. Overall sleep is improved he generally feels alert duing the day. * 12/02/2023 weight = 386 lbs. * 09/19/2023 PSYCHOTHERAPY: The [place] disclosed to the provider patterns of overeating, and consequent issues with weight gain. The shared that he eats at times until uncomfortably full, is embarassed about that his eating, and struggles to control his eating at times. He described an emotional connection his eating. The [place]'s report suggests that he additionall meets criteria for a Binge Eating Disorder. DSM DIAGNOSES (w/ICD10 codes): - F40.10 Social Anxiety Disorder - F41.1 Generalized Anxiety Disorder - F51.01 Insomnia, with mental disorder and with medical condition, persistent - F32.A Unspecified Depressive Disorder - F50.81 Binge Eating Disorder * 07/01/2023 MENTAL HEALTH ASSESSMENT: PRESENTING SITUATION: What brings you into Mental Health at this time: [place] sees a psychiatrist in [place]. He is not sure that he needs to talk to someone. He is diagnosed with insomnia, anxiety, and depression. He reported that it all stems from tinnitus. He said that it drives him crazy . DSM5 DIAGNOSES: Anxiety D/O due to medical condition; Depression due to another medical condition; Tinnitus; Psychological and behavioral factors due to Tinnitus VII: SUMMARY AND IMPRESSIONS: Mr. Rascon is a 52yo , , [employer] [place]. He has not past mental health history and primary mental health concerns have stemmed from Tinnitus. endorsed symptoms of depression and anxiety related to living and managing his life with Tinnitus. He identified occupational and social impairment related to this. He is engaged in medication management in the community and feels that psychotherapy may be helpful to identify ways to cope with symptoms of depressed and anxious mood. * 06/08/2023 Diagnosed with JW * 03/29/2023 PRIVATE RECORDS: Seen for the evaluation of daytime sleepiness, snoring, gasping arousals, witnessed apnea. EXAM: Neck circumference 20 inches. Mouth and Pharynx: Booker palate position is 4. Tonsils not visualized. * 03/13/2023 weight = 382 lbs. * 01/04/2017 weight = 347 lbs. * 11/22/2014 weight = 339 lbs. * 06/16/2012 weight = 318.5 lbs. * 04/06/2011 weight = 312.9 lbs * 01/21/2009 weight = 299.1 lbs * 11/20/2005 weight = 296.6 lbs * 10/27/2003 PRIMARY CARE NOTE: WEIGHT 282. LBS. 33 year-old male with no significant past medical history is here for annual follow up visit. Offers no complaints, patient expressed his concern about overweight, reports he does not eat too much, and cannot lose weight. * 06/14/2001 weight = 279 lbs. * 02/01/2000 PRIMARY CARE NOTE: Overall feels well, physically active. 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 WEIGHT = 266 LBS. * 01/13/1999 weight = 270 lbs. * 10/06/1992 DATE ACTIVE DUTY PER DD214 * 08/16/1992 STR SEPARATION: Medical: weight 210 lbs. normal psychiatric. Self Assessment: No frequent trouble sleeping. NO nervous trouble of any sort. * 04/22/1990 DATE ENTERED ACTIVE DUTY PER DD214 * 01/18/1989 STR ENLISTMENT: Medical: weight 192 lbs, build heavy. Self Assessment: no frequent trouble sleeping. NO nervous trouble of any sort. REVIEW OF PEER-REVIEWED MEDICAL LITERATURE: [employer] website and Journal of Clinical Sleep Medicine reviewed March 2024 Obstructive sleep apnea (JW) is a common chronic disorder that often requires lifelong care. Cardinal features in adults include: * Obstructive apneas, hypopneas, or respiratory effort related arousals * Daytime symptoms attributable to disrupted sleep, such as sleepiness, fatigue, or poor concentration * Signs of disturbed sleep, such as snoring, restlessness, or resuscitative snorts DIAGNOSIS - Polysomnography is the first-line diagnostic study when JW is suspected. RISK FACTORS INCLUDE OBESITY: - Obesity In both males and females, the strongest risk factor for Obstructive Sleep Apnea is increased BMI . The risk of JW correlates with amplified body mass index (BMI). * Male sex JW is approximately two to three times more common in males than females. Craniofacial and upper airway abnormalities Craniofacial or upper airway abnormalities increase the likelihood of having JW. Obstructive sleep apnea (JW) is a disorder characterized by obstructive apneas and hypopneas due to repetitive collapse of the upper airway during sleep. Pharyngeal compromise by narrowed lateral pharyngeal hemphill, enlarged tonsils, or enlarged uvula are the most common anatomic abnormalities, and collapse at the palate is the most common site. * The modified Mallampati (MM) grade and Booker tongue position (FTP) are commonly used scales that assess the oropharynx during evaluation for obstructive sleep apnea (JW). There is a statistically significant correlation between the FTP(booker tongue position) grade and the apnea-hypopnea index (AHI) severity of JW. MEDICAL OPINION: REQUESTED SECONDARY SERVICE CONNECTION The [place]'s separation exam showed a weight of 210 pounds. Within six years post active duty there is a documented weight gain of 50+ lbs. Medical evidence at that time does not describe any active mental health issues. He was diagnosed with JW 30+ years post active duty. Additionally, an increase of body habitus (172lbs) occurred during that time frame. The medical literature notes that the predominant reason for Obstructive Sleep Apnea is a physical factor (obesity). Additional risk factors are other physical reasons such as craniofacial anatomy. There is documentation in the record of a Freidman score of 4 indicating the most obstructive tongue position. The medical literature does not link or list the diagnosis of (generalized anxiety disorder with major depressive disorder - mental health condition) as a risk factor for obstructive sleep apnea. The conditions of Obstructive Sleep Apnea and (generalized anxiety disorder with major depressive disorder) are not medically related. The Obstructive Sleep Apnea is a separate entity entirely from (generalized anxiety disorder with major depressive disorder) and unrelated to it. A thorough review of medical literature failed to demonstrate a causal relationship. A nexus has not been established. Medical literature does not support a mental health condition ((generalized anxiety disorder with major depressive disorder) as a cause physiologic for Obstructive Sleep Apnea. Some studies have suggested an association between JW and (generalized anxiety disorder with major depressive disorder). However, they are cohort studies, not peer reviewed and do not show causality. Obesity along with craniofacial anatomy are the best documented risk factors for obstructive sleep apnea. It is my medical opinion that the [place]'s current diagnosis of Obstructive Sleep Apnea (JW) is less likely than not (likelihood is at less than approximately balanced or nearly equal ) proximately due to or the result of his service connected (generalized anxiety disorder with major depressive disorder). /blair/ MARCELO HERNANDEZ NURSE PRACTITIONER Signed: 03/24/2024 16:05 HIRO HERNANDEZ [facility]
--- OUTSIDE RECORDS SUMMARY | 2024-06-04 11:14 | XMS_ITS | Encounter Summary ---
Author Name [facility] [place] Address [address] [place] [address] Care Team Providers Care Director Product Safety Name Role Phone DELIA CHRISTIANSEN Primary Care Provider [facility] Insurance Providers: All historical and current [...] Garner's Name Patient's Relationship to Policy Garner [facility] Apr 03, 2012 [id number] [phone] DIANE RASCON SPOUSE Selected Encounter This section includes the information on record at [place] for the Encounter. Date/Time Encounter Type Encounter Description Reason Pro vider Source Mar 09, 2024 12:00 AM Outpatient Encounter EVENT (HISTORICAL) IHE Encounter Template Text not used by [place] Plan of Treatment: Future Appointments (+ 6 [...] 20 appointments. The data comes from all [place] treatment facilities. Appointment Date/Time Appointment Type Appointme nt Facility Name Mar 13, 2024 02:00 PM AMBULATORY [facility] [place] [facility] Mar 24, 2024 11:00 AM AMBULATORY [facility] MEDICINE [facility] [place] [facility] Mar 27, 2024 02:00 PM AMBULATORY [facility] PS[facility]IATRY [facility] [place] [facility] Mar 31, 2024 02:30 PM AMBULATORY [facility] NEUROLOGY [facility] [place] [facility] Mar 31, 2024 02:30 PM [place] [facility] Apr 01, 2024 08:30 AM AMBULATORY [facility] PS[facility]IATRY [facility] [place] [facility] Apr 24, 2024 02:00 PM AMBULATORY [facility]ATRY [facility] [place] [facility] May 04, 2024 03:00 PM AMBULATORY [facility] PS[facility]IATRY [facility] [place] [facility] May 15, 2024 02:00 PM AMBULATORY [facility] PS[facility]IATRY [facility] [place] [facility] May 25, 2024 03:00 PM AMBULATORY [facility] PS[facility]IATRY [facility] [place] [facility] Jun 12, 2024 02:00 PM AMBULATORY [facility] PS[facility]IATRY [facility] [place] [facility] Jun 23, 2024 03:30 PM AMBULATORY [facility] PS[facility]IATRY [facility] [place] [facility] Jul 07, 2024 01:30 PM [place] [facility] Jul 07, 2024 01:30 PM AMBULATORY - NEUROLOGY [facility] [place] [facility] Active, Pending, and Scheduled Orders This section includes a listing of several types of active, pending, and scheduled orders, including clinic medications orders, diagnostic test orders, procedure orders and consult orders; where the start date of the order is 45 days before the date of the Encounter or 45 days after the date of theEncounter. The data comes from all [place] treatment facilities. Test Date/Time Test Type Test Details Facility Name Apr 07, 2024 10:17 AM Consult Order COMMUNITY CARE-OPTOMETRY ROUTINE EYE EXAM Cons Non Food Receiving Clerk's Choice [place] [facility] [place] [facility] Social History: Smoking Status (Most current) and Tobacco Use (All prior to encounter date) This section includes the most current, and the historical, smoking and tobacco- related health factors from the [facility] facility where the Encounter took place. Current Smoking Status This section includes the most current smoking, or tobacco-related health factor, from the [place] facility where the Encounter took place. Date/Time Current Smoking Status Comment Facil it Jan 09, 2023 05:09 PM VA-TOBACCO FORMER USER [facility] Tobacco Use History This section includes a history of the smoking, or tobacco-related health factors, that were collected on or before the date of the Encounter. The data comes from the [place] facility where the Encounter took place. Date/Time Smoking Status/Tobac co Use Comment Facility Jan 09, 2023 05:09 PM VA-TOBACCO QUIT 15 YRS OR MORE [facility] Jan 04, 2017 07:42 AM LIFETIME NON-TOBACCO USER [facility] Dec 26, 2015 09:20 AM QUIT TOBACCO USE > 7 YEARS AGO quit in 1997 [facility] October 27, 2003 03:29 PM HISTORY OF SMOKING Smoke free 6 years [facility] Jan 02, 2002 08:56 AM HISTORY OF SMOKING [facility] Jan 02, 2002 08:56 AM QUIT TOBACCO USE > 7 YEARS AGO [facility] Jan 14, 2001 11:25 AM HISTORY OF SMOKING non smoker 4 years [facility]
--- OUTSIDE RECORDS SUMMARY | 2024-06-04 11:14 | XMS_ITS ---
Author Name [facility] [place] [facility] [place] Address [address] [place] [id number] Care Team Providers Care Research Compliance Specialist Name Role Phone DELIA CHRISTIANSEN [facility] Insurance Providers: All historical and [...] Name Patient's Relationship to Policy Garner [facility] Apr 03, 2012 [id number] [id number] [phone] DIANE RASCON SPOUSE Selected Encounter This section includes the information on record at [place] for the Encounter. Date/Time Encounter Type Encounter Description Reason Provider Source Sep 06, 2023 02:00 PM PSYTX W PT 45 [facility]UTES [facility] - IND ICD-10-CM H93.19 Tinnitus, unspecified ear DIYA BENNETT Encounter Template Text not used by [place] Assessments - Encounter Diagnoses This section includes the primary and secondary diagnoses documented for the Encounter. Date/Time Primary/Secondary Diagnosis Diagnosis Name Provider Source Sep 06, 2023 04:20 PM PRIMARY Tinnitus, unspecified ear PENNY,KARSTEN A [place] [facility] [place] [facility] Sep 06, 2023 04:20 PM SECONDARY Depression, unspecified PENNY,KARSTEN A [facility] [place] [facility] Sep 06, 2023 04:20 PM SECONDARY Generalized anxiety disorder KARSTEN FRANCIS [facility] [place] [facility] Sep 06, 2023 04:20 PM SECONDARY Primary insomnia KARSTEN FRANCIS [place] [facility] [place] [facility] Plan of Treatment: Future Appointments (+ 6 months) and Future Tests (+/- 45 days) The Plan of Treatment section includes future care activities for the patient from all [place] treatmentfacilities. This section includes future appointments and [...] AMBULATORY - PSYCHIATRY [facility] [place] [facility] October 04, 2023 02:00 PM AMBULATORY - PS[facility]CHIATRY [facility] [place] [facility] October 18, 2023 02:00 PM AMBULATORY - PS[facility]CHIATRY [facility] [place] [facility] October 30, 2023 03:30 PM AMBULATORY - NONE [facility] [place] [facility] October 30, 2023 03:30 PM AMBULATORY - NEUROLOGY [facility] November 01, 2023 02:00 PM AMBULATORY - PSYCHIATRY [facility] [place] [facility] Nov 15, 2023 02:00 PM AMBULATORY - PS[facility]CHIATRY [facility] [place] [facility] Nov 28, 2023 02:00 PM AMBULATORY - PS[facility]CHIATRY [facility] [place] [facility] Dec 02, 2023 03:30 PM AMBULATORY - MEDICINE [facility] [place] [facility] Dec 20, 2023 02:00 PM AMBULATORY - PSYCHIATRY [facility] [place] [facility] Jan 17, 2024 02:00 PM AMBULATORY - PSYCHIATRY [facility] [place] [facility] Jan 31, 2024 02:00 PM AMBULATORY - PS[facility]CHIATRY [facility] [place] [facility] Feb 11, 2024 02:30 PM AMBULATORY - NEUROLOGY [facility] [place] [facility] Feb 28, 2024 02:00 PM AMBULATORY - PS[facility]CHIATRY [facility] [place] [facility] Lab Results: +/- 30 days of the encounter This section includes the Chemistry and Hematology Lab Results on record with [place] for the patient. Radiology Reports and Pathology Reports are provided separately, in subsequent sections. Lab Results This section contains the Chemistry/Hematology Results that were resulted 30 days before or 30 daysafter the date of the Encounter. Date/Time Source Result Type Result - Unit Interpretation Reference Range Comment Aug 27, 2023 09:19 AM [facility] FOLATE Specimen Type: SERUM No comment entered. Ordering Provider: THERESA CHRISTIANSEN AM Report Released Date/Time: Jun 25, 2023 08:42 AM Reporting Lab: [facility] [address] [facility] [address] Performing Lab: [facility] [address] [facility] [address] FOLATE 11.13 ng/mL >5.2 Aug 27, 2023 09:19 AM [facility] THYROID T4 FREE(FT4) Specimen Type: SERUM No comment entered. Ordering Provider: THERESA CHRISTIANSEN AM Report Released Date/Time: Jun 25, 2023 08:42 AM Reporting Lab: [facility] [address] [facility] [address] Performing Lab: [facility] [address] [facility] [address] THYROID T4 FREE(FT4) 0.90 ng/dL 0.6-1.6 Aug 27, 2023 09:19 AM [facility] VITAMIN B12 Specimen Type: SERUM No comment entered. Ordering Provider: THERESA CHRISTIANSEN AM Report Released Date/Time: Jun 25, 2023 08:42 AM Reporting Lab: [facility] [address] [facility] [address] Performing Lab: [address] [address] VITAMIN B12 469 pg/mL 200-900 Aug 27, 2023 09:19 AM [facility] VITAMIN D (25-[place]) Specimen Type: SERUM No comment entered. Ordering Provider: THERESA CHRISTIANSEN AM Report Released Date/Time: Jun 25, 2023 08:42 AM Reporting Lab: [address] [address] Performing Lab: [address] [address] VITAMIN D (25-OH) 16 ng/mL L 20-50 Aug 27, 2023 09:19 AM [facility] CBC Specimen Type: BLOOD No comment entered. Ordering Provider: THERESA CHRISTIANSEN AM Report Released Date/Time: Jun 25, 2023 08:42 AM Reporting Lab: [address] [address] Performing Lab: [address] [address] WBC 5.18 10*3/uL 4.50-11.00 RBC 5.10 10*6/uL 4.23-5.66 HGB 14.3 g/dL 12.8-17 HCT 43.5 39.2-50.4 MCV 85.3 fL 82-99 MCHC 32.9 g/dL 30.8-35.1 PLT 179 10*3/uL 140-360 RDW-CV 12.8 12.0-16.0 MCH 28.0 pg 26.2-32.6 Aug 27, 2023 09:19 AM [facility] HEMOGLOBIN A1C PANEL Specimen Type: BLOOD [...] Jun 25, 2023 08:42 AM Reporting Lab: [address] [address] Performing Lab: [address] [address] HEMOGLOBIN A1C 5.4 4.0-5.6 Aug 27, 2023 09:19 AM [facility]NESIUM Specimen Type: SERUM No comment entered. Ordering Provider: THERESA CHRISTIANSEN AM Report Released Date/Time: Jun 25, 2023 08:42 AM Reporting Lab: [facility] [address] [address] Performing Lab: [facility] [address] [address] MAGNESIUM 2.0 mg/dL 1.6-2.6 Aug 27, 2023 09:19 AM [facility] TSH Specimen Type: SERUM No comment entered. Ordering Provider: THERESA CHRISTIANSEN AM Report Released Date/Time: Jun 25, 2023 08:42 AM Reporting Lab: [facility] [address] [address] Performing Lab: [facility] [address] [address] TSH 1.38 u[IU]/mL 0.35-5.00 Aug 27, 2023 09:19 AM [facility] PSA Specimen Type: SERUM No comment entered. Ordering Provider: THERESA CHRISTIANSEN AM Report Released Date/Time: Jun 25, 2023 08:42 AM Reporting Lab: [facility] [address] [address] Performing Lab: [facility] [address] [address] PSA 1.35 ng/mL 0.00-4.00 Aug 27, 2023 09:19 AM [facility] BASIC METABOLIC PANEL (fasting) Specimen Type: SERUM No comment entered. Ordering Provider: THERESA CHRISTIANSEN AM Report Released Date/Time: Jun 25, 2023 08:42 AM Reporting Lab: [facility] [address] [address] Performing Lab: [facility] [address] [address] UREA NITROGEN 15 mg/dL 7-25 GLUCOSE 95 mg/dL 65-100 SODIUM 142 mmol/L 135-145 POTASSIUM 4.3 mmol/L 3.5-5.0 CHLORIDE 107 mmol/L 100-110 CO2 25 meq/L 20-30 CREATININE, Serum 0.68 mg/dL 0.50-1.40 eGFR(CKD-EPI 2020) >90 mL/min >60 Aug 27, 2023 09:19 AM [facility] LIVER FUNCTION Specimen Type: SERUM No comment entered. Ordering Provider: THERESA CHRISTIANSEN AM Report Released Date/Time: Jun 25, 2023 08:42 AM Reporting Lab: [address] [address] Performing Lab: [address] [address] PROTEIN,TOTAL 6.2 g/dL 6.0-8.3 ALBUMIN 3.6 g/dL 3.5-5.0 ALKALINE PHOSPHATASE 75 U/L 40-150 AST 10 U/L 5-34 ALT 15 U/L BILIRUBIN, TOTAL 0.9 mg/dL 0.2-1.2 Aug 27, 2023 09:19 AM [facility] LIPID PANEL FASTING Specimen Type: SERUM No comment entered. Ordering Provider: THERESA CHRISTIANSEN AM Report Released Date/Time: Jun 25, 2023 08:42 AM Reporting Lab: [address] [address] Performing Lab: [address] [address] CHOLESTEROL 183 mg/dL TRIGLYCERIDE 112 mg/dL 0-150 [...] place. Date/Time Current Smoking Status Comment Facil carlyn Jan 09, 2023 05:09 PM VA-TOBACCO FORMER [...] Encounter Note(s) Provider Source Sep 06, 2023 02:02 PM TELEHEALTH NOTE: LOCAL TITLE: [place] VIDEO CONNECT PSYCHOLOGY NOTE STANDARD TITLE: TELEHEALTH NOTE DATE OF NOTE: SEP 06, 2023@14:02 ENTRY DATE: SEP 06, 2023@14:02:31 AUTHOR: KARSTEN FRANCIS COSIGNER: KERI BENNETT URGENCY: STATUS: COMPLETED Supervision: This case is being supervised by Keri Bennett, PhD, full-time Staff Psychologist. Diagnosis, treatment plan, and response to care are reviewed in one hour weekly individual supervision meetings. This was a 50 minute appointment to initiate individual psychotherapy for depression, anxiety and insomnia. DATA: The [place] shared that he had a rough past two weeks with his sleep as he continues to try to use his new CPAP machine. He shared that that he has only gotten substantial sleep when he was run down and that he has gotten sick due to this lack of sleep. He shared that his medication wasn't as helpful recently, and he was encouraged to speak with his psychiatrist regarding this at their next appointment (next week). The provider gave some diagnostic feedback, and we explored the connections between sleep, anxiety and the 's worsening tinnitus over time and the processes of habituation vs. sensitization. We discussed the ways in which the [place] has tried to control his tinnitus, and the costs associated with the control agenda. We explored the finger puzzle ACT metaphor, and agreed to discuss treatment approaches at next session. ASSESSMENT: The was on time to the [...] condition, persistent - F32.A Unspecified Depressive Disorder PLAN: [place] will RTC for individual psychotherapy on 09/13/2023 with provider, Dr. Karsten Francis. In out next session we will explore treatment options such as CBT-i and ACT. Couplewise (S-cubism) Standard Documentation [facility] Clinician Resources Only: E911 (Emergency Call Relay Center): [phone] National Veterans Crisis Line - 988 then press #1. [facility] Suicide Coordinator [phone], Ext. [phone]; Back-up Ext. [phone] [place] [employer], [place] [phone] Introduction: Visit is being conducted by [employer]ple[employer]. identified with 2 identifiers: [X] Full Name [X] Date of [ ] VA ID Card Emergency Plan: confirmed and/or provided the following information in case of emergency or technology failure. PATIENT PHONE - PHONE NUMBER [CELLULAR] - Is patient phone number correct, if not, enter below: [place]'s phone number: DIANE Patel [address], [place], [address] 's present location and address for appointment: Home address above. 's emergency contact name and phone number: Wilda Rascon [place] reported that location is private and safe: Yes Informed Consent: [place] informed of the risks and benefits of Telehealth video care. [place] has the right to refuse video services. If refuses video visit, a [id number] visit will be scheduled. verbalized consent for this video visit: Yes provided consent for any other persons present for visit: N/A If yes, who and relationship to patient: Secure visit: Visit was locked for security and privacy:Yes /blair/ KARSTEN FRANCIS, PHD [facility] Post-Doctoral Psychology Trainee Signed: 09/06/2023 16:20 /blair/ Keri Bennett PhD Clinical Psychologist, [facility] Cosigned: 09/06/2023 16:26 KARSTEN FRANCIS [facility]
--- OUTSIDE RECORDS SUMMARY | 2024-06-04 11:14 | XMS_ITS ---
Author Name [facility] [place] Address [address] [place] [address] Care Team Providers Care Table Filler Name Role Phone VICTORINO BUCKNER Primary Care Provider [facility] Insurance Providers: All historical and [...] Garner's Name Patient's Relationship to Policy Garner [facility] Apr 03, 2012 [id number] [id number] [phone] DIANE RASCON SPOUSE Selected Encounter This section includes the information on record at [place] for the Encounter. Date/Time Encounter Type Encounter Description Reason Pro vider Source Feb 11, 2024 02:30 PM Outpatient Encounter ADMIN PAT ACTIVTIES (MASNONCT) IHE Encounter Template Text not used by [place] Plan of Treatment: Future Appointments (+ 6 [...] 20 appointments. The data comes from all [place] treatment facilities. Appointment Date/Time Appointment Type Appointme nt Facility Name Feb 28, 2024 02:00 PM AMBULATORY - PS[facility]IATRY [facility] [place] [facility] Mar 09, 2024 03:30 PM AMBULATORY [facility] MEDICINE [facility] [place] [facility] Mar 13, 2024 02:00 PM AMBULATORY - PS[facility]CHIATRY [facility] [place] [facility] Mar 24, 2024 11:00 AM AMBULATORY [facility] MEDICINE [facility] [place] [facility] Mar 27, 2024 02:00 PM AMBULATORY - PS[facility]CHIATRY [facility] [place] [facility] Mar 31, 2024 02:30 PM AMBULATORY - NEUROLOGY [facility] [place] [facility] Mar 31, 2024 02:30 PM [facility] [facility] Apr 01, 2024 08:30 AM AMBULATORY - PS[facility]CHIATRY [facility] [place] [facility] Apr 24, 2024 02:00 PM AMBULATORY - PS[facility]CHIATRY [facility] [place] [facility] May 04, 2024 03:00 PM AMBULATORY - PS[facility]CHIATRY [facility] [place] [facility] May 15, 2024 02:00 PM AMBULATORY - PS[facility]CHIATRY [facility] [place] [facility] May 25, 2024 03:00 PM AMBULATORY - PS[facility]CHIATRY [facility] [place] [facility] Jun 12, 2024 02:00 PM AMBULATORY - PS[facility]CHIATRY [facility] [place] [facility] Jun 23, 2024 03:30 PM AMBULATORY - PS[facility]CHIATRY [facility] [place] [facility] Jul 07, 2024 01:30 PM [place] [facility] Jul 07, 2024 01:30 PM AMBULATORY [facility] NEUROLOGY [facility] [place] [facility] Social History: Smoking Status (Most [...] 2023 05:09 PM [facility] Tobacco Use History This section includes a history of the smoking, or tobacco-related health factors, that were collected on or before the date of the Encounter. The data comes from the [place] facility where the Encounter took place. Date/Time Smoking Status/Tobac co Use Comment Facility Jan 09, 2023 05:09 PM VA-TOBACCO QUIT 15 YRS OR MORE [facility] Jan 04, 2017 07:42 AM LIFETIME NON-TOBACCO USER [facility] Dec 26, 2015 09:20 AM QUIT TOBACCO USE > 7 YEARS AGO quit in 1997 [facility] October 27, 2003 03:29 PM HISTORY OF SMOKING Smoke free 6 years [facility] Jan 02, 2002 08:56 AM HISTORY OF SMOKING [facility] Jan 02, 2002 08:56 AM QUIT TOBACCO USE > 7 YEARS AGO [facility] Jan 14, 2001 11:25 AM HISTORY OF SMOKING non smoker 4 years [facility] Encounter Notes: All associated encounter notes This section contains the clinical notes associated to the Encounter. Date/Time Encounter Note(s) Provider Source Feb 12, 2024 08:54 AM CLERICAL NOTE: LOCAL TITLE: APPOINTMENT NO SHOW STANDARD TITLE: CLERICAL NOTE DATE OF NOTE: FEB 12, 2024@08:54 ENTRY DATE: FEB 12, 2024@08:54:24 AUTHOR: BRE GUERRERO COSIGNER: URGENCY: STATUS: COMPLETED Patient Name: DIANE RASCON Patient SSN: [id number] Date and time of Appointment No show : 02/11/24 14:30 PATIENT PHONE - PHONE NUMBER [CELLULAR] - Patient's medical record was reviewed. Follow-up actions were determined and initiated: Please check/complete as applies: [X]Telephoned Directly [X]Re-scheduled for next available appt [ ]Sent a N0-show letter ( must call for appointment) [ ]Other (Emergent/Overbook, etc.): Additional Comments: Future Clinic Visits 03/09/2024 15:30 CWM/NO/PACT 7 NURSE 03/31/2024 14:30 CWM V01 RICHA MINAYA 02 ADMIN 12/14/2024 15:30 CWM/NO/PACT 7 /es/ BRE GUERRERO DIRECT SUPPORT [facility] Signed: 02/12/2024 08:54 [facility] [place] [facility] Feb 11, 2024 02:22 PM CLERICAL NOTE: LOCAL TITLE: APPOINTMENT NO SHOW STANDARD TITLE: CLERICAL NOTE DATE OF NOTE: FEB 11, 2024@14:22 ENTRY DATE: FEB 11, 2024@14:23:02 AUTHOR: GARRY ROCHA EXP COSIGNER: URGENCY: STATUS: COMPLETED Patient Name: DIANE RASCON Patient SSN: [id number] Date and time of Appointment No show : 02/11/24 14:30 PATIENT PHONE - PHONE NUMBER [CELLULAR] - The did not show for their scheduled appointment. I am forwarding this message to the provider, surrogate, or designated team installation service representative to review the 's medical record, including any consult or procedure requests received or associated with the appointment to determine and initiate appropriate follow-up action. Please mail No Show Letter. Patient's medical record was reviewed. Future Clinic Visits 03/09/2024 15:30 CWM/NO/PACT 7 NURSE 12/14/2024 15:30 CWM/NO/PACT 7 /es/ Garry Rocha MD, MPH [id number] [facility] TelePain Lead Signed: 02/11/2024 14:45 Receipt Acknowledged By: 02/12/2024 08:44 /blair/ BRE GUERRERO DIRECT SUPPORT [facility] 02/12/2024 13:56 /es/ Victorino Buckner DNP, TANKER TRUCK DRIVER-BC, CNL Primary Care Nurse Practitioner [facility]
--- OUTSIDE RECORDS SUMMARY | 2024-06-04 11:14 | XMS_ITS ---
Author Name [facility] [place] [facility] [place] Address [address] [place] [id number] Care Team Providers Care Brand Representative Name Role Phone DELIA CHRISTIANSEN Primary [facility] Provider [facility] Insurance Providers: All historical and current Section Date Range: From patient's date of to the date document was created. This section includes the names of all active insurance providers for the patient. Insurance Provider Type of Coverage Plan Name Start of Policy Coverage End of Policy Coverage Group Number Member ID Insurance Provider's Telephone Number Policy Garner's Name Patient's Relationship to Policy Garner [facility] Apr 03, 2012 [id number] [phone] DIANE RASCON SPOUSE Selected Encounter This section includes the information on record at [place] for the Encounter. Date/Time Encounter Type Encounter Description Reason Provider Source Mar 27, 2024 02:00 PM PSYTX W PT 45 MINUTES [facility] - [place] ICD-10-CM H93.19 Tinnitus, unspecified ear TAMIKO EVANS E Encounter Template Text not used by [place] Assessments - Encounter Diagnoses This section includes the primary and secondary diagnoses documented for the Encounter. Date/Time Primary/Secondary Diagnosis Diagnosis Name Provider Source Mar 27, 2024 03:53 PM PRIMARY Tinnitus, unspecified ear PENNY,KARSTEN A [place] [facility] [place] [facility] Mar 27, 2024 03:53 PM SECONDARY Depression, unspecified PENNY,KARSTEN A [place] [facility] [place] [facility] Mar 27, 2024 03:53 PM SECONDARY Primary insomnia KARSTEN FRANCIS [place] [facility] [place] [facility] Mar 27, 2024 03:53 PM SECONDARY Sleep apnea, unspecified [facility] [place] [facility] Plan of Treatment: Future Appointments (+ 6 months) and Future Tests (+/- 45 days) The Plan of Treatment section includes future care activities for the [facility] [place] [facility] This section includes future appointments and future orders which are active, pending or scheduled. Future Appointments This section includes appointments that were scheduled to occur 6 months from the date of the Encounter, up to a maximum of 20 appointments. The data comes from all [place] treatment facilities. Appointment Date/Time Appointment Type Appointme nt Facility Name Mar 31, 2024 02:30 PM AMBULATORY - NEUROLOGY [place] [facility] [place] [facility] Mar 31, 2024 02:30 PM AMBULATORY - [place]OLOG[place] [facility] Apr 01, 2024 08:30 AM AMBULATORY - PSYCHIATRY [place] [facility] [place] [facility] Apr 24, 2024 02:00 PM AMBULATORY - PSYCHIATRY [place] [facility] [place] [facility] May 04, 2024 03:00 PM AMBULATORY - PSYCHIATRY [place] [facility] [place] [facility] May 15, 2024 02:00 PM AMBULATORY - PSYCHIATRY [place] [facility] [place] [facility] May 25, 2024 03:00 PM AMBULATORY - PSYCHIATRY [place] [facility] [place] [facility] Jun 12, 2024 02:00 PM AMBULATORY - PSYCHIATRY [place] [facility] [place] [facility] Jun 23, 2024 03:30 PM AMBULATORY - PSYCHIATRY [place] [facility] [place] [facility] Jul 07, 2024 01:30 PM AMBULATORY - [place]UROLOGY [place] [facility] Jul 07, 2024 01:30 PM AMBULATORY - NEUROLOGY [place] [facility] [place] [facility] Active, Pending, and Scheduled Orders This section includes a listing of several types of active, pending, and scheduled orders, including clinic medications orders, diagnostic test orders, procedure orders and consult orders; where the start date of the order is 45 days before the date of the Encounter or 45 days after the date of theEncounter. The data comes from all [place] treatment facilities. Test Date/Time Test Type Test Details Facility Name Apr 07, 2024 10:17 AM Consult Order COMMUNITY CARE-OPTOMETRY ROUTINE EYE EXAM Cons Tube Bender Hand's Choice [facility] Social History: Smoking Status (Most current) [...] 09, 2023 05:09 PM VA-TOBACCO FORMER USER [facility] Tobacco Use History This section includes a history of the smoking, or tobacco-related health factors, that were collected on or before the date of the Encounter. The data comes from the [place] facility where the Encounter took place. Date/Time Smoking Status/Tobac co Use Comment Facility Jan 09, 2023 05:09 PM VA-TOBACCO QUIT 15 YRS OR MORE [facility] Jan 04, 2017 07:42 AM LIFETIME NON-TOBACCO USER [facility] Dec 26, 2015 09:20 AM QUIT TOBACCO USE > 7 YEARS AGO quit in 1997 [facility] October 27, 2003 03:29 PM HISTORY OF SMOKING Smoke free 6 years [facility] Jan 02, 2002 08:56 AM HISTORY OF SMOKING [facility] Jan 02, 2002 08:56 AM QUIT TOBACCO USE > 7 YEARS AGO [facility] Jan 14, 2001 11:25 AM HISTORY OF SMOKING non smoker 4 years [facility] Encounter Notes: All associated encounter notes This section contains the clinical notes associated to the Encounter. Date/Time Encounter Note(s) Provider Source Mar 27, 2024 04:05 PM ADDENDUM: LOCAL TITLE: Addendum STANDARD TITLE: ADDENDUM DATE OF NOTE: MAR 27, 2024@16:05:48 ENTRY DATE: MAR 27, 2024@16:05:49 AUTHOR: AMAYA EVANS COSIGNER: URGENCY: STATUS: COMPLETED I have reviewed this case and concur with the clinical impressions and recommendations made by Dr. Francis as the covering spine supervisor for Dr. Vieyra, added to above note for informational purposes. /blair/ AMAYA EVANS PSYD CLINICAL PSYCHOLOGIST - [facility] Signed: 03/27/2024 16:06 Receipt Acknowledged By: 03/29/2024 07:11 /blair/ Israel Vieyra PsyD Staff Psychologist ====== --- Original Document --- 03/27/24 [place] VIDEO CONNECT PSYCHOLOGY NOTE: This case is supervised by Dr. Marian Manuel, staff psychologist in the [facility], with supervision coverage for this session provided by Dr. Amaya Evans. Diagnosis, treatment plan, and response to care are reviewed on an ongoing basis in weekly individual supervision meetings. IDENTITY VERIFICATION [X] Patient Name [X] Visual recognition [ ] Birthdate [ ] Social Security # This was a 50 minute individual psychotherapy appointment on 03/27/2024 in the treatment of depression, anxiety and insomnia. DATA: The shared that he has noticed an uptick in depression and anxiety symptoms over the past week. He said that his community provider tried to up his escitalopram medication, but that he's noted no difference. We processed his frustration with his medication regimin, and his feeling that they might be making things worse. He shared that he is additionally proscribed two other antidepressant medications from his neurologist (for headache). We revisited the possiblity of transfering [facility] to the [facility], and the indicated that he would like to do so, with the intention os simplifying his medication regimin if possible. The provider initiated a med consult in connection with this request. ASSESSMENT: The [place] was on time to the appointment and was fully engaged. Grooming and dress were WNL. Gross motor function was WNL. Mood was euthymic and affect was congruent. Speech was normal in rate, tone and prosody. Insight and judgement were intact. There was no evidence of A/VH or thought disorder. No SI/emergent risk. PLAN: will RTC for individual psychotherapy on 04/17/2024 with provider, Dr. Karsten Francis. [place] Video Connect (VVC) Standard Documentation VVC Clinician Resources Only: E911 (Emergency Call Relay Center): [phone] National Veterans Crisis Line - 988 then press #1. [place] Suicide Coordinator [phone], Ext. [phone]; Back-up Ext. [phone] [place] Police, [place] [phone] Introduction: Visit is being conducted by [place] [employer]. [place] identified with 2 identifiers: [X] Full Name [X] Date of [ ] VA ID Card Emergency Plan: [place] confirmed and/or provided the following information in case of emergency or technology failure. PATIENT PHONE - PHONE NUMBER [CELLULAR] - Is patient phone number correct, if not, enter below: 's phone number: DIANE RASCON [address], [place], [address] 's present location and address for appointment: Home address above. 's emergency contact name and phone number: Wilda Rascon [place] reported that location is private and safe: Yes Informed Consent: [place] informed of the risks and benefits of Telehealth video care. [place] has the right to refuse video services. If refuses video visit, a eobz-wc-lniw visit will be scheduled. verbalized consent for this video visit: Yes [place] provided consent for any other persons present for visit: N/A If yes, who and relationship to patient: Secure visit: Visit was locked for security and privacy:Yes /blair/ KARSTEN FRANCIS, PHD [facility] Post-Doctoral Psychology Trainee Signed: 03/27/2024 15:52 /blair/ AMAYA EVANS PSYD CLINICAL PSYCHOLOGIST - [facility] Cosigned: 03/27/2024 16:05 AMAYA EVANS [place] [facility] [place] [facility] Mar 27, 2024 03:00 PM TELEHEALTH NOTE: LOCAL TITLE: IN VIDEO CONNECT PSYCHOLOGY NOTE STANDARD TITLE: TELEHEALTH NOTE DATE OF NOTE: MAR 27, 2024@15:00 ENTRY DATE: MAR 27, 2024@15:00:36 AUTHOR: KARSTEN FRANCIS COSIGNER: AMAYA EVANS URGENCY: STATUS: COMPLETED IN VIDEO CONNECT PSYCHOLOGY NOTE Has ADDENDA This case is supervised by Dr. Marian Manuel, staff psychologist in the Mental Health Clinic, with supervision coverage for this session provided by Dr. Amaya Evans. Diagnosis, treatment plan, and response to care are reviewed on an ongoing basis in weekly individual supervision meetings. IDENTITY VERIFICATION [X] Patient Name [X] Visual recognition [ ] Birthdate [ ] Social Security # This was a 50 minute individual psychotherapy appointment on 03/27/2024 in the treatment of depression, anxiety and insomnia. DATA: The [place] shared that he has noticed an uptick in depression and anxiety symptoms over the past week. He said that his community provider tried to up his escitalopram medication, but that he's noted no difference. We processed his frustration with his medication regimin, and his feeling that they might be making things worse. He shared that he is additionally proscribed two other antidepressant medications from his neurologist (for headache). We revisited the possiblity of transfering psychiatric care to the [facility], and the indicated that he would like to do so, with the intention os simplifying his medication regimin if possible. The provider initiated a med consult in connection with this request. ASSESSMENT: The was on time to the appointment and was fully engaged. Grooming and dress were WNL. Gross motor function was WNL. Mood was euthymic and affect was congruent. Speech was normal in rate, tone and prosody. Insight and judgement were intact. There was no evidence of A/VH or thought disorder. No SI/emergent risk. PLAN: will RTC for individual psychotherapy on 04/17/2024 with provider, Dr. Karsten Francis. [place] Video Connect (VVC) Standard Documentation VVC Clinician Resources Only: E911 (Emergency Call Relay Center): [phone] National Veterans Crisis Line - 988 then press #1. [facility] Suicide Coordinator [phone], Ext. [phone]; Back-up Ext. [phone] [place] Police, [place] [phone] Introduction: Visit is being conducted by [place] Video Connect. identified with 2 identifiers: [X] Full Name [X] Date of [ ] VA ID Card Emergency Plan: confirmed and/or provided the following information in case of emergency or technology failure. PATIENT PHONE - PHONE NUMBER [CELLULAR] - Is patient phone number correct, if not, enter below: 's phone number: DIANE RASCON [address], [place], [address] 's present location and address for appointment: Home address above. [place]'s emergency contact name and phone number: Wilda Rascon [place] reported that location is private and safe: Yes Informed Consent: informed of the risks and benefits of Telehealth video care. [place] has the right to refuse video services. If refuses video visit, a bpqx-mh-zutp visit will be scheduled. [place] verbalized consent for this video visit: Yes [place] provided consent for any other persons present for visit: N/A If yes, who and relationship to patient: Secure visit: Visit was locked for security and privacy:Yes /blair/ KARSTEN FRANCIS, PHD [facility] Post-Doctoral Psychology Trainee Signed: 03/27/2024 15:52 /blair/ AMAYA EVANS PSYD CLINICAL PSYCHOLOGIST - [facility] Cosigned: 03/27/2024 16:05 03/27/2024 ADDENDUM STATUS: COMPLETED I have reviewed this case and concur with the clinical impressions and recommendations made by Dr. Francis as the covering spine supervisor for Dr. Vieyra, added to above note for informational purposes. /blair/ AMAYA EVANS PSYD CLINICAL PSYCHOLOGIST - [facility] Signed: 03/27/2024 16:06 Receipt Acknowledged By: * AWAITING SIGNATURE * ISRAEL VIEYRA BRIAN A [facility] [facility]
--- OUTSIDE RECORDS SUMMARY | 2024-06-04 11:14 | XMS_ITS | Encounter Summary ---
Author Name [facility] [place] Address [address] [place] [address] Care Team Providers Care Network Intelligence Analyst Name Role Phone DELIA CHRISTIANSEN Primary Care Provider [facility] Insurance Providers: All historical and current [...] Name Patient's Relationship to Policy Garner [facility] Apr 03, 2012 [id number] DIANE RASCON SPOUSE Selected Encounter This section includes the information on record at [place] for the Encounter. Date/Time Encounter Type Encounter Description Reason Provider Source Nov 15, 2023 02:00 PM PSYTX W PT 45 MINUTES [facility] - [place] ICD-10-CM F50.81 Binge eating disorder TARIQ TRAN [place] Encounter Template Text not used by [place] Assessments - Encounter Diagnoses This section includes the primary and secondary diagnoses documented for the Encounter. Date/Time Primary/Secondary Diagnosis Diagnosis Name Provider Source Nov 15, 2023 03:31 PM PRIMARY Binge eating disorder KARSTEN FRANCIS [place] [facility] Nov 15, 2023 03:31 PM SECONDARY Depression, unspecified KARSTEN FRANCIS [place] [facility] [place] [facility] Nov 15, 2023 03:31 PM SECONDARY Generalized anxiety disorder KARSTEN FRANCIS [place] [facility] [place] [facility] Nov 15, 2023 03:31 PM SECONDARY Primary insomnia KARSTEN FRANCIS [place] [facility] [place] [facility] Nov 15, 2023 03:31 PM SECONDARY Tinnitus, unspecified ear KARSTEN FRANCIS [place] [facility] Plan of Treatment: Future Appointments (+ 6 months) and Future Tests (+/- 45 days) The Plan of Treatment section includes future care activities for the patient from all [place] [facility]. This section includes future appointments and future orders which are active, pending or scheduled. Future Appointments This section includes appointments that were scheduled to occur 6 months from the date of the Encounter, up to a maximum of 20 appointments. The data comes from all [place] treatment facilities. Appointment Date/Time Appointment Type Appointme nt Facility Name Nov 28, 2023 02:00 PM AMBULATORY - PSYCHIATRY [place] [facility] [place] [facility] Dec 02, 2023 03:30 PM AMBULATORY - MEDICINE [facility] [place] [facility] Dec 20, 2023 02:00 PM AMBULATORY - PSYCHIATRY [place] [facility] [place] [place] [facility] Jan 17, 2024 02:00 PM AMBULATORY - PSYCHIATRY [place] [facility] [place] [facility] Jan 31, 2024 02:00 PM AMBULATORY - PSYCHIATRY [place] [facility] [place] [facility] Feb 11, 2024 02:30 PM AMBULATORY - NEUROLOGY [place] [facility] [place] [place] [facility] Feb 28, 2024 02:00 PM AMBULATORY - PSYCHIATRY [place] [facility] [place] [facility] Mar 09, 2024 03:30 PM AMBULATORY - MEDICINE [facility] [place] [facility] [place] [facility] Mar 13, 2024 02:00 PM AMBULATORY - PSYCHIATRY [place] [facility] [facility] Mar 24, 2024 11:00 AM AMBULATORY - MEDICINE [place] [place] [facility] Mar 27, 2024 02:00 PM AMBULATORY - PSYCHIATRY [place] [facility] [place] [facility] Mar 31, 2024 02:30 PM AMBULATORY - NEUROLOGY [facility] [place] [facility] Mar 31, 2024 02:30 PM [facility] Apr 01, 2024 08:30 AM [facility] [place] [facility] Apr 24, 2024 02:00 PM [facility] [place] [facility] May 04, 2024 03:00 PM [facility] May 15, 2024 02:00 PM [facility] Social History: Smoking Status (Most current) and Tobacco Use (All prior to encounter date) This section includes the most current, and the historical, smoking and tobacco- related health factors from the [place] facility where the Encounter took place. Current Smoking Status This section includes the most current smoking, or tobacco-related health factor, from the [place] facility where the Encounter took place. Date/Time Current Smoking Status Comment [place] [facility] Jan 09, 2023 05:09 PM VA-TOBACCO FORMER USER [facility] Tobacco Use History This section includes a history of the smoking, or tobacco-related health factors, that were collected on or before the date of the Encounter. The data comes from the [place] facility where the Encounter took place. Date/Time Smoking Status/Tobac co Use Comment Facility Jan 09, 2023 05:09 PM VA-TOBACCO QUIT 15 YRS OR MORE [facility] Jan 04, 2017 07:42 AM LIFETIME NON-TOBACCO USER [facility] Dec 26, 2015 09:20 AM QUIT TOBACCO USE > 7 YEARS AGO quit in 1997 [facility] October 27, 2003 03:29 PM HISTORY OF SMOKING Smoke free 6 years [facility] Jan 02, 2002 08:56 AM [facility] Jan 02, 2002 08:56 AM QUIT TOBACCO USE > 7 YEARS AGO [facility] Jan 14, 2001 11:25 AM HISTORY OF SMOKING non smoker 4 years [facility] Encounter Notes: All associated encounter notes This section contains the clinical notes associated to the Encounter. Date/Time Encounter Note(s) Provider Source Nov 15, 2023 03:24 PM TELEHEALTH NOTE: LOCAL TITLE: [place] VIDEO CONNECT PSYCHOLOGY NOTE STANDARD TITLE: TELEHEALTH NOTE DATE OF NOTE: NOV 15, 2023@15:24 ENTRY DATE: NOV 15, 2023@15:24:47 AUTHOR: KARSTEN FRANCIS COSIGNER: TARIQ TRAN URGENCY: STATUS: COMPLETED [place] VIDEO CONNECT PSYCHOLOGY NOTE Has ADDENDA This [...] of depression, anxiety and insomnia. DATA: The [place] shared that things had generally been unchanged since our last meeting, except for sleep which had been slightly worse. We discussed the [place]'s habit of staying in bed for a few hours before sleeping decompressing and the impact this can have on sleeping (re. stimulus control). We briefly problem solved ways to possibly improve on this. The [place] shared that it was important to him to have a private space in which to decompress, of which the bedroom was the most reliably such. We discussed the 's looking forward to a dinner out with his family, and explored other ways to engage in behavioral activation. The provider gave psychoeducation about behavioral activation and depression maintenence. ASSESSMENT: The was on time to the appointment and was fully engaged. Grooming and dress were WNL. Gross motor function was WNL. Mood was mildly dysphoric and affect was congruent and varied appropriately. Speech was normal in rate, tone and prosody. Insight and judgement were intact. There was no evidence of A/VH or thought disorder. SI/HI were not elicited in today's session and there was no indication of increase in risk. DSM DIAGNOSES (w/ICD10 codes): - F40.10 Social Anxiety Disorder - F41.1 Generalized Anxiety Disorder - F51.01 Insomnia, with mental disorder and with medical condition, persistent - F32.A Unspecified Depressive Disorder - F50.81 Binge Eating Disorder PLAN: will RTC for individual psychotherapy on 11/28/2023 with provider, Dr. Karsten Francis. [place] Video Connect (VVC) Standard Documentation VVC Clinician Resources Only: E911 (Emergency Call Relay Center): [phone] National Veterans Crisis Line - 988 then press #1. [place] Suicide Coordinator [phone], Ext. [phone]; Back-up Ext. [phone] [place] Police, [place] [phone] Introduction: Visit is being conducted by [place] Video Connect. [place] identified with 2 identifiers: [X] Full Name [X] Date of [ ] VA ID Card Emergency Plan: confirmed and/or provided the following information in case of emergency or technology failure. PATIENT PHONE - PHONE NUMBER [CELLULAR] - Is patient phone number correct, if not, enter below: [place]'s phone number: DIANE RASCON [address], [place], [address] 's present location and address for appointment: Home address above. 's emergency contact name and phone number: Wilda Arlyn [place] reported that location is private and safe: Yes Informed Consent: informed of the risks and benefits of Telehealth video care. has the right to refuse video services. If refuses video visit, a gaag-dr-fnjo visit will be scheduled. [place] verbalized consent for this video visit: Yes provided consent for any other persons present for visit: N/A If yes, who and relationship to patient: Secure visit: Visit was locked for security and privacy:Yes /blair/ KARSTEN FRANCIS, PHD [facility] Post-Doctoral Psychology Trainee Signed: 11/15/2023 15:31 /blair/ TARIQ TRAN PSYD PSYCHOLOGIST Cosigned: 11/15/2023 16:23 11/15/2023 ADDENDUM STATUS: COMPLETED I have reviewed this case and concur with the clinical impressions and recommendations made by this trainee who is under my clinical supervision. /blair/ TARIQ TRAN PSYD PSYCHOLOGIST Signed: 11/15/2023 16:23 [facility]ANCIS [place] [facility]
--- OUTSIDE RECORDS SUMMARY | 2024-06-04 11:14 | XMS_ITS | Encounter Summary ---
Author Name [facility] [place] Organization [place] Address [address] [place] [id number] Care Team Providers Care Appointment Scheduler Name Role Phone DELIA CHRISTIANSEN Primary Care Provider [facility] [...] Name Patient's Relationship to Policy [facility] Apr 03, 2012 [id number] [phone] DIANE RASCON SPOUSE Selected Encounter This section includes the information on record at [place] for the Encounter. Date/Time Encounter Type Encounter Description Reason Provider Source Nov 28, 2023 02:00 PM PSYTX W PT 45 MINUTES [facility] - IND ICD-10-CM F50.81 Binge eating disorder TARIQ TRAN [place] Encounter Template Text not used by [place] Assessments - Encounter Diagnoses This section includes the primary and secondary diagnoses documented for the Encounter. Date/Time Primary/Secondary Diagnosis Diagnosis Name Provider Source Nov 28, 2023 02:55 PM PRIMARY Binge eating disorder KARSTEN FRANCIS [place] [facility] [place] [facility] Nov 28, 2023 02:55 PM SECONDARY Depression, unspecified KARSTEN FRANCIS [facility] [place] [facility] Nov 28, 2023 02:55 PM SECONDARY Generalized anxiety disorder KARSTEN FRANCIS [facility] [place] [facility] Nov 28, 2023 02:55 PM SECONDARY Primary insomnia KARSTEN FRANCIS [facility] [place] [facility] Nov 28, 2023 02:55 PM SECONDARY Tinnitus, unspecified ear KARSTEN FRANCIS [place] [facility] [place] [facility] Plan of Treatment: Future Appointments (+ 6 months) and Future Tests (+/- 45 days) The Plan of Treatment section includes future care activities for the patient from all [place] treatment[facility] hospitalities. This section includes future appointments and future orders which are active, pending or scheduled. Future Appointments This section includes appointments that were scheduled to occur 6 months from the date of the Encounter, up to a maximum of 20 appointments. The data comes from all [place] treatment facilities. Appointment Date/Time Appointment Type Appointme nt Facility Name Dec 02, 2023 03:30 PM AMBULATORY - MEDICINE [facility] [place] [facility] Dec 20, 2023 02:00 PM AMBULATORY - PSYCHIATRY [facility] [place] [facility] Jan 17, 2024 02:00 PM AMBULATORY - PSYCHIATRY [facility] [place] [facility] Jan 31, 2024 02:00 PM AMBULATORY - PSYCHIATRY [facility] [place] [facility] Feb 11, 2024 02:30 PM AMBULATORY - NEUROLOGY [facility] [place] [facility] Feb 28, 2024 02:00 PM AMBULATORY - PSYCHIATRY [facility] [place] [facility] Mar 09, 2024 03:30 PM AMBULATORY - MEDICINE [facility] [place] [facility] Mar 13, 2024 02:00 PM AMBULATORY - PSYCHIATRY [facility] [place] [facility] Mar 24, 2024 11:00 AM AMBULATORY - MEDICINE [facility] [place] [facility] Mar 27, 2024 02:00 PM AMBULATORY - PSYCHIATRY [facility] [place] [facility] Mar 31, 2024 02:30 PM AMBULATORY - NEUROLOGY [facility] [place] [facility] Mar 31, 2024 02:30 PM AMBULATORY - NEUROLOGY [facility] Apr 01, 2024 08:30 AM [facility] [place] [facility] Apr 24, 2024 02:00 PM AMBULATORY - PSYCHIATRY [facility] May 04, 2024 03:00 PM AMBULATORY - PSYCHIATRY [facility] May 15, 2024 02:00 PM [facility] May 25, 2024 03:00 PM [facility] Social History: Smoking Status (Most current) and Tobacco Use (All prior to encounter date) This section includes the most current, and the historical, smoking and tobacco- related health factors from the [place] facility where the Encounter took place. Current Smoking Status This section includes the most current smoking, or tobacco-related health factor, from the [place] facility where the Encounter took place. Date/Time Current Smoking Status Comment Facil [facility] Jan 09, 2023 05:09 PM VA-TOBACCO FORMER USER [facility] Tobacco Use History This section includes a history of the smoking, or tobacco-related health factors, that were collected on or before the date of the Encounter. The data comes from the [place] facility where the Encounter took place. Date/Time Smoking Status/Tobac co Use Comment Facility Jan 09, 2023 05:09 PM VA-TOBACCO QUIT 15 YRS OR MORE [facility] Jan 04, 2017 07:42 AM LIFETIME NON-[facility]BACCO [facility] Dec 26, 2015 09:20 AM QUIT TOBACCO USE > 7 YEARS AGO quit in 1997 [facility] October 27, 2003 03:29 PM HISTORY OF SMOKING Smoke free 6 years [facility] Jan 02, 2002 08:56 AM HIST[facility] SMO[facility] Jan 02, 2002 08:56 AM QUIT TOBACCO USE > 7 YEARS AGO [facility] Jan 14, 2001 11:25 AM HISTORY OF SMOKING non smoker 4 years [facility] Encounter Notes: All associated encounter notes This section contains the clinical notes associated to the Encounter. Date/Time Encounter Note(s) Provider Source Nov 28, 2023 12:47 PM TELEHEALTH NOTE: LOCAL TITLE: [place] VIDEO CONNECT PSYCHOLOGY NOTE STANDARD TITLE: TELEHEALTH NOTE DATE OF NOTE: NOV 28, 2023@12:47 ENTRY DATE: NOV 28, 2023@12:47:26 AUTHOR: KARSTEN FRANCIS COSIGNER: TARIQ TRAN URGENCY: STATUS: COMPLETED [place] VIDEO CONNECT PSYCHOLOGY NOTE Has ADDENDA This [...] a 50 minute individual psychotherapy appointment on 11/28/2023 in the treatment of depression, anxiety and insomnia. DATA: We processed what the has been taking from therapy so far. He shared that he thought he was getting good reinforcement for behavioral strategies to improve mood. He shared that it's still at times a challenge to implement those strategies. We explored how to make smaller goals to work towards behavior changes, and came up with a few potential examples together. The also shared that he appreciated the space to disclose his feelings, and noted that he has been reflecting on his feelings more since starting our work. The provider discussed the role of the theraputic relationship in promoting corrective emotional experiences. ASSESSMENT: The was on time to the [...] PLAN: will RTC for individual psychotherapy on 12/20/2023 with provider, Dr. Karsten Francis. [place] Video Connect (VVC) Standard Documentation VVC Clinician Resources Only: E911 (Emergency Call Relay Center): [phone] National Veterans Crisis Line - 988 then press #1. [place] Suicide Coordinator [phone], Ext. [phone]; Back-up Ext. [phone] [place] Police, [place] [phone] Introduction: Visit is being conducted by [place] Video Connect. [place] identified with 2 identifiers: [X] Full Name [X] Date of [ ] VA ID Card Emergency Plan: [place] confirmed and/or provided the following information in case of emergency or technology failure. PATIENT PHONE - PHONE NUMBER [CELLULAR] - Is patient phone number correct, if not, enter below: [place]'s phone number: DIANE RASCON [address], [place], [address] [place]'s present location and address for appointment: Home address above. 's emergency contact name and phone number: Wilda Rascon [place] reported that location is private and safe: Yes Informed Consent: informed of the risks and benefits of Telehealth video care. has the right to refuse video services. If refuses video visit, a [id number] visit will be scheduled. verbalized consent for this video visit: Yes [place] provided consent for any other persons present for visit: N/A If yes, who and relationship to patient: Secure visit: Visit was locked for security and privacy:Yes /blair/ KARSTEN FRANCIS, PHD [facility] Post-Doctoral Psychology Trainee Signed: 11/28/2023 14:54 /blair/ TARIQ TRAN PSYD PSYCHOLOGIST Cosigned: 11/29/2023 14:37 11/29/2023 ADDENDUM STATUS: COMPLETED I have reviewed this case and concur with the clinical impressions and recommendations made by this trainee who is under my clinical supervision. /blair/ TARIQ TRAN PSYD PSYCHOLOGIST Signed: 11/29/2023 14:37 KARSTEN FRANCIS [facility]
--- OUTSIDE RECORDS SUMMARY | 2024-06-04 11:14 | XMS_ITS ---
Author Name [facility] of [facility] [place] Organization [place] Address [address] [place] [id number] Care Team Providers Care Zmt Operator Name Role Phone DELIA CHRISTIANSEN Primary Care Provider [facility] Insurance Providers: All historical and [...] Name Patient's Relationship to Policy [facility] Apr 03, 2012 [id number] [phone] DIANE RASCON SPOUSE Selected Encounter This section includes the information on record at [place] for the Encounter. Date/Time Encounter Type Encounter Description Reason Provider Source November 01, 2023 02:00 PM PSYTX W PT 45 MINUTES [facility] - IND ICD-10-CM H93.19 Tinnitus, unspecified ear TARIQ TRAN [place] Encounter Template Text not used by [place] Assessments - Encounter Diagnoses This section includes the primary and secondary diagnoses documented for the Encounter. Date/Time Primary/Secondary Diagnosis Diagnosis Name Provider Source November 01, 2023 04:13 PM PRIMARY Tinnitus, unspecified ear KARSTEN FRANCIS [place] [facility] [place] [facility] November 01, 2023 04:13 PM SECONDARY Binge eating disorder KARSTEN FRANCIS [facility] [place] [facility] November 01, 2023 04:13 PM SECONDARY Depression, unspecified KARSTEN FRANCIS [facility] [place] [facility] November 01, 2023 04:13 PM SECONDARY Generalized anxiety disorder KARSTEN FRANCIS [facility] [place] [facility] November 01, 2023 04:13 PM SECONDARY Primary insomnia KARSTEN FRANCIS [place] [facility] [facility] Plan of Treatment: Future Appointments (+ 6 months) and Future Tests (+/- 45 days) The Plan of Treatment section includes future care activities for the patient from all [place] treatmentfaunc health chathamities. This section includes future appointments and future orders which are active, pending or scheduled. Future Appointments This section includes appointments that were scheduled to occur 6 months from the date of the Encounter, up to a maximum of 20 appointments. The data comes from all [place] treatment facilities. Appointment Date/Time Appointment Type Appointme nt Facility Name Nov 15, 2023 02:00 PM AMBULATORY - PSYCHIATRY [facility] [place] [facility] Nov 28, 2023 02:00 PM AMBULATORY - PSYCHIATRY [facility] [place] [facility] Dec 02, 2023 03:30 PM AMBULATORY - MEDICINE [facility] [place] [facility] Dec 20, 2023 02:00 PM AMBULATORY - PSYCHIATRY [facility] [place] [facility] Jan 17, 2024 02:00 PM AMBULATORY - PSYCHIATRY [facility] [place] [facility] Jan 31, 2024 02:00 PM AMBULATORY - PSYCHIATRY [facility] [place] [facility] Feb 11, 2024 02:30 PM AMBULATORY - NEUROLOGY [facility] [place] [facility] Feb 28, 2024 02:00 PM AMBULATORY - PSYCHIATRY [facility] [place] [facility] Mar 09, 2024 03:30 PM AMBULATORY - MEDICINE [facility] [place] [facility] Mar 13, 2024 02:00 PM AMBULATORY - PSYCHIATRY [facility] [place] [facility] Mar 24, 2024 11:00 AM AMBULATORY - MEDICINE [facility] [place] [facility] Mar 27, 2024 02:00 PM AMBULATORY - PSYCHIATRY [facility] [place] [facility] Mar 31, 2024 02:30 PM [facility] [place] [facility] Mar 31, 2024 02:30 PM AMBULATORY - NEUROLOGY [facility] Apr 01, 2024 08:30 AM AM[facility]UL[facility] Apr 24, 2024 02:00 PM [facility] Social History: Smoking Status (Most [...] 09, 2023 05:09 PM VA-TOBACCO [facility] Tobacco Use History This section includes a history of the smoking, or tobacco-related health factors, that were collected on or before the date of the Encounter. The data comes from the [place] facility where the Encounter took place. Date/Time Smoking Status/Tobac co Use Comment Facility Jan 09, 2023 05:09 PM VA-TOBACCO QUIT 15 YRS OR MORE [facility] Jan 04, 2017 07:42 AM LIFETIME NON-TOBACCO USER [facility] Dec 26, 2015 09:20 AM QUIT TOBACCO USE > 7 YEARS AGO quit in 1997 [facility] October 27, 2003 03:29 PM HISTORY OF SMOKING Smoke free 6 years [facility] [place] [facility] Jan 02, 2002 08:56 AM HISTORY OF SMOKING [facility] [place] [facility] Jan 02, 2002 08:56 AM QUIT TOBACCO USE > 7 YEARS AGO [facility] Jan 14, 2001 11:25 AM HISTORY OF SMOKING non smoker 4 years [facility] Encounter Notes: All associated encounter notes This section contains the clinical notes associated to the Encounter. Date/Time Encounter Note(s) Provider Source November 01, 2023 02:57 PM TELEHEALTH NOTE: LOCAL TITLE: [place] VIDEO CONNECT PSYCHOLOGY NOTE STANDARD TITLE: TELEHEALTH NOTE DATE OF NOTE: NOVEMBER 01, 2023@14:57 ENTRY DATE: NOVEMBER 01, 2023@14:57:47 AUTHOR: KARSTEN FRANCIS COSIGNER: TARIQ TRAN URGENCY: STATUS: COMPLETED [place] VIDEO CONNECT PSYCHOLOGY NOTE Has ADDENDA This [...] depression, anxiety and insomnia. DATA: We processed the [place]'s outing last week with his friend to see a band. He endorsed feelings of discomfort and shared that he had placed himself against a wall in the back of the establishment. We explored this in detail, and the provider again briefly inquired about traumatic history (which was denied). We explored the preparatory work he had done for this outing, and how this may have influenced anxiety. We discussed the issue of anxiety processes sometimes feeling useful. ASSESSMENT: The was on time to the [...] Disorder - F50.81 Binge Eating Disorder PLAN: [place] will RTC for individual psychotherapy on 11/15/2023 with provider, Dr. Karsten Francis. [place] Video Connect (VVC) Standard Documentation VVC Clinician Resources Only: E911 (Emergency Call Relay Center): [phone] National [place] Crisis Line - 988 then press #1. [facility] Suicide Coordinator [phone], Ext. [phone]; Back-up Ext. [phone] [place] Police, [place] [phone] Introduction: Visit is being conducted by [place] Video Connect. [place] identified with 2 identifiers: [X] Full Name [X] Date of [ ] [place] ID Card Emergency Plan: confirmed and/or provided the following information in case of emergency or technology failure. PATIENT PHONE - PHONE NUMBER [CELLULAR] - Is patient phone number correct, if not, enter below: 's phone number: DIANE RASCON [address], [place], [address] 's present location and address for appointment: Home address above. 's emergency contact name and phone number: Wilda Rascon reported that location is private and safe: Yes Informed Consent: [place] informed of the risks and benefits of Telehealth video care. [place] has the right to refuse video services. If refuses video visit, a [id number] visit will be scheduled. [place] verbalized consent for this video visit: Yes [place] provided consent for any other persons present for visit: N/A If yes, who and relationship to patient: Secure visit: Visit was locked for security and privacy:Yes /blair/ KARSTEN FRANCIS, PHD [facility] Post-Doctoral Psychology Trainee Signed: 11/01/2023 16:12 /blair/ TARIQ TRAN PSYD PSYCHOLOGIST Cosigned: 11/01/2023 16:21 11/01/2023 ADDENDUM STATUS: COMPLETED I have reviewed this case and concur with the clinical impressions and recommendations made by this trainee who is under my clinical supervision. /blair/ TARIQ TRAN PSYD PSYCHOLOGIST Signed: 11/01/2023 16:22 KARTSEN FRANCIS [facility]
--- OUTSIDE RECORDS SUMMARY | 2024-06-04 11:15 | XMS_ITS | Encounter Summary ---
Author Name [facility] [place] [facility] [place] [facility] [place] Address [address] [place] [address] Care Team Providers Care Rn Gynecology Name Role Phone DELIA CHRISTIANSEN Primary Care [...] Garner's Name Patient's Relationship to Policy Garner [facility] Apr 03, 2012 [id number] [phone] DIANE RASCON SPOUSE Selected Encounter This section includes the information on record at [place] for the Encounter. Date/Time Encounter Type Encounter Description Reason Pro vider Source Aug 13, 2023 12:00 AM Outpatient Encounter EVENT (HISTORICAL) IHE Encounter Template Text not used by [place] Plan of Treatment: Future Appointments (+ 6 [...] 20 appointments. The data comes from all [place] treatment facilities. Appointment Date/Time Appointment Type Appointme nt Facility Name Aug 22, 2023 09:30 AM AMBULATORY - NONE [facility] Aug 22, 2023 09:30 AM AMBULATORY - NEUROLOGY [facility] Aug 22, 2023 02:00 PM AMBULATORY - PSYCHIATRY [facility] Sep 06, 2023 02:00 PM AMBULATORY - [...] 30, 2023 03:30 PM AMBULATORY - [facility]UR[facility] November 01, 2023 02:00 PM [...] - NEUROLOGY [facility] Lab Results: +/- 30 days of the encounter This section includes the Chemistry and Hematology Lab Results on record with [facility] for the patient. Radiology Reports and Pathology [...] Jun 25, 2023 08:42 AM Reporting [facility] [facility] [address] [facility] [phone] Performing Lab: [facility] [address] [facility] [address] THYROID T4 FREE(FT4) 0.90 ng/dL 0.6-1.6 Aug 27, 2023 09:19 AM [facility] FOLATE Specimen Type: SERUM No comment entered. Ordering Provider: THERESA CHRISTIANSEN AM Report Released Date/Time: Jun 25, 2023 08:42 AM Reporting Lab: [facility] [address] [facility] [phone] Performing Lab: [facility] [address] [address] FOLATE 11.13 ng/mL >5.2 Aug 27, 2023 09:19 AM [facility] VITAMIN B12 Specimen Type: SERUM No comment entered. Ordering Provider: THERESA CHRISTIANSEN AM Report Released Date/Time: Jun 25, 2023 08:42 AM Reporting Lab: [facility] [address] [facility] [phone] Performing Lab: [facility] [address] [facility] [phone] VITAMIN B12 469 pg/mL 200-900 Aug 27, 2023 09:19 AM [facility] VITAMIN D (25-[place]) Specimen Type: SERUM No comment entered. Ordering Provider: THERESA CHRISTIANSEN AM Report Released Date/Time: Jun 25, 2023 08:42 AM Reporting Lab: [facility] [address] [facility] [phone] Performing Lab: [facility] [address] [facility] [phone] VITAMIN D (25-OH) 16 ng/mL L 20-50 Aug 27, 2023 09:19 AM [facility] MAGNESIUM Specimen Type: SERUM No comment entered. Ordering Provider: THERESA CHRISTIANSEN AM Report Released Date/Time: Jun 25, 2023 08:42 AM Reporting Lab: [address] [address] Performing Lab: [address] [address] MAGNESIUM 2.0 mg/dL 1.6-2.6 Aug 27, 2023 09:19 AM [facility] HEMOGLOBIN A1C PANEL Specimen Type: BLOOD [...] Jun 25, 2023 08:42 AM Reporting Lab: [address] [address] Performing Lab: [address] [address] HEMOGLOBIN A1C 5.4 4.0-5.6 Aug 27, 2023 09:19 AM [facility] CBC Specimen Type: BLOOD No comment entered. Ordering Provider: THERESA CHRISTIANSEN AM Report Released Date/Time: Jun 25, 2023 08:42 AM Reporting Lab: [address] [address] Performing Lab: [address] [address] WBC 5.18 10*3/uL 4.50-11.00 RBC 5.10 10*6/uL 4.23-5.66 HGB 14.3 g/dL 12.8-17 HCT 43.5 39.2-50.4 MCV 85.3 fL 82-99 MCHC 32.9 g/dL 30.8-35.1 PLT 179 10*3/uL 140-360 RDW-CV 12.8 12.0-16.0 MCH 28.0 pg 26.2-32.6 Aug 27, 2023 09:19 AM [facility] TSH Specimen Type: SERUM No comment entered. Ordering Provider: THERESA CHRISTIANSEN AM Report Released Date/Time: Jun 25, 2023 08:42 AM Reporting Lab: [address] [address] Performing Lab: [address] [address] TSH 1.38 u[IU]/mL 0.35-5.00 Aug 27, 2023 09:19 AM [facility] PSA Specimen Type: SERUM No comment entered. Ordering Provider: THERESA CHRISTIANSEN AM Report Released Date/Time: Jun 25, 2023 08:42 AM Reporting Lab: [address] [address] Performing Lab: [address] [address] PSA 1.35 ng/mL 0.00-4.00 Aug 27, 2023 09:19 AM [facility] LIPID PANEL FASTING Specimen Type: SERUM No comment entered. Ordering Provider: THERESA CHRISTIANSEN AM Report Released Date/Time: Jun 25, 2023 08:42 AM Reporting Lab: [address] [address] Performing Lab: [address] [address] CHOLESTEROL 183 mg/dL TRIGLYCERIDE 112 mg/dL 0-150 LDL calculated 120 mg/dL 0-129 CHOL/HDL 4.5 HDL CHOLESTEROL 41 mg/dL 40-60 Aug 27, 2023 09:19 AM [facility] LIVER FUNCTION Specimen Type: SERUM No comment entered. Ordering Provider: THERESA CHRISTIANSEN AM Report Released Date/Time: Jun 25, 2023 08:42 AM Reporting Lab: [address] [address] Performing Lab: [facility] [address] [facility] [phone] PROTEIN,TOTAL 6.2 g/dL 6.0-8.3 ALBUMIN 3.6 g/dL 3.5-5.0 ALKALINE PHOSPHATASE 75 U/L 40-150 AST 10 U/L 5-34 ALT 15 U/L BILIRUBIN, TOTAL 0.9 mg/dL 0.2-1.2 Aug 27, 2023 09:19 AM [facility] BASIC METABOLIC PANEL (fasting) Specimen Type: SERUM No comment entered. Ordering Provider: THERESA CHRISTIANSEN AM Report Released Date/Time: Jun 25, 2023 08:42 AM Reporting Lab: [facility] [address] [facility] [address] Performing Lab: [address] [address] UREA NITROGEN 15 mg/dL 7-25 GLUCOSE 95 [...] and tobacco- related health factors from the [place] facility where the Encounter took place. Current Smoking Status This section includes the most current smoking, or tobacco-related health factor, from the [place] facility where the Encounter took place. Date/Time Current Smoking Status Comment [facility] Jan 09, 2023 05:09 PM VA-TOBACCO FORMER USER [facility] Tobacco Use History This section includes a history of the smoking, or tobacco-related health factors, that were collected on or before the date of the Encounter. The data comes from the [place] facility where the Encounter took place. Date/Time Smoking Status/Tobac co Use Comment Facility Jan 09, 2023 05:09 PM VA-TOBACCO QUIT 15 YRS OR MORE [facility] Jan 04, 2017 07:42 AM LIFETIME NON-TOBACCO USER [facility] Dec 26, 2015 09:20 AM QUIT TOBACCO USE > 7 YEARS AGO quit in 1997 [facility] October 27, 2003 03:29 PM HISTORY OF SMOKING Smoke free 6 years [facility] Jan 02, 2002 08:56 AM HISTORY OF SMOKING [facility] Jan 02, 2002 08:56 AM QUIT TOBACCO USE > 7 YEARS AGO [facility] Jan 14, 2001 11:25 AM HISTORY OF SMOKING non smoker 4 years [facility]
--- OUTSIDE RECORDS SUMMARY | 2024-06-04 11:15 | XMS_ITS | Encounter Summary ---
Author Name [facility] [place] [facility] [place] Address [address] [place] [id number] Care Team Providers Care Inspector Precision Name Role Phone VICTORINO BUCKNER Primary [facility] Insurance Providers: All historical and current Section Date Range: From patient's date of to the date document was created. This section includes the names of all active insurance providers for the patient. Insurance Provider Type of Coverage Plan Name Start of Policy Coverage End of Policy Coverage Group Number Member ID Insurance Provider's Telephone Number Policy Garner's Name Patient's Relationship to Policy Garner [facility] Apr 03, 2012 [id number] DIANE RASCON SPOUSE Selected Encounter This section includes the information on record at [place] for the Encounter. Date/Time Encounter Type Encounter Description Reason Provider Source Jul 30, 2023 01:30 PM MTMS BY PHARM EST 15 MIN CLINICAL PHARMACY ICD-10-CM E66.9 Obesity, unspecified GDULA,JANETH A [facility] Encounter Template Text not used by [place] Assessments - Encounter Diagnoses This section includes the primary and secondary diagnoses documented for the Encounter. Date/Time Primary/Secondary Diagnosis Diagnosis Name Provider Source Jul 30, 2023 03:15 PM PRIMARY Obesity, unspecified GDULA,JANETH A [facility] Plan of Treatment: Future Appointments (+ 6 months) and Future Tests (+/- 45 days) The Plan of Treatment section includes future care activities for the patient [facility]. This section includes future appointments and [...] AMBULATORY - NONE [facility] [place] [facility] Aug 22, 2023 09:30 AM AMBULATORY - [place]UROLOGY [place] [facility] Aug 22, 2023 02:00 PM AMBULATORY - PSYCHIATRY [facility] [place] [facility] Sep 06, 2023 02:00 PM AMBULATORY - PSYCHIATRY [facility] [place] [facility] Sep 19, 2023 01:00 PM AMBULATORY - PSYCHIATRY [facility] [place] [facility] October 04, 2023 02:00 PM AMBULATORY - PSYCHIATRY [facility] [place] [facility] October 18, 2023 02:00 PM AMBULATORY - PSYCHIATRY [facility] [place] [facility] October 30, 2023 03:30 PM AMBULATORY - NONE [facility] [place] [facility] October 30, 2023 03:30 PM AMBULATORY - [place]OLOGY [place] [facility] November 01, 2023 02:00 PM AMBULATORY - PSYCHIATRY [facility] [place] [facility] Nov 15, 2023 02:00 PM AMBULATORY - PSYCHIATRY [facility] [place] [facility] Nov 28, 2023 02:00 PM AMBULATORY - PSYCHIATRY [facility] [place] [facility] Dec 02, 2023 03:30 PM AMBULATORY - MEDICINE [facility] [place] [facility] Dec 20, 2023 02:00 PM AMBULATORY - PSYCHIATRY [facility] [place] [facility] Jan 17, 2024 02:00 PM AMBULATORY - PSYCHIATRY [facility] [place] [facility] Lab Results: +/- 30 days [...] Range Comment Aug 27, 2023 09:19 AM [facility] [place] [facility] FOLATE Specimen Type: SERUM No comment entered. Ordering Provider: THERESA BUCKNER AM Report Released Date/Time: Jun 25, 2023 08:42 AM Reporting Lab: [facility] [place] [facility] [address] [facility] [address] Performing Lab: [facility] [place] [facility] [address] [facility] [address] FOLATE 11.13 ng/mL >5.2 Aug 27, 2023 09:19 AM [facility] [place] [facility] THYROID T4 FREE(FT4) Specimen Type: SERUM No comment entered. Ordering Provider: THERESA BUCKNER AM Report Released Date/Time: Jun 25, 2023 08:42 AM Reporting Lab[facility] [place] [facility] [address] [facility] [address] Performing Lab: [facility] [place] [facility] [address] [facility] [address] THYROID T4 FREE(FT4) 0.90 ng/dL 0.6-1.6 Aug 27, 2023 09:19 AM [facility] [place] [facility] VITAMIN B12 Specimen Type: SERUM No comment entered. Ordering Provider: THERESA BUCKNER AM Report Released Date/Time: Jun 25, 2023 08:42 AM Reporting Lab[facility] [place] [facility] [address] [facility] [address] Performing Lab: [facility] [place] [facility] [address] [facility] [address] VITAMIN B12 469 pg/mL 200-900 Aug 27, 2023 09:19 AM [facility] [place] [facility] VITAMIN D (25-[place]) Specimen Type: SERUM No comment entered. Ordering Provider: THERESA BUCKNER AM Report Released Date/Time: Jun 25, 2023 08:42 AM Reporting Lab: [facility] [place] [facility] [address] [facility] [address] Performing Lab: [facility] [place] [facility] [address] [facility] [address] VITAMIN D (25-OH) 16 ng/mL L 20-50 Aug 27, 2023 09:19 AM [facility] CBC Specimen Type: BLOOD No comment entered. Ordering Provider: THERESA BUCKNER AM Report Released Date/Time: Jun 25, 2023 08:42 AM Reporting Lab: [facility] [address] [facility] [address] Performing Lab: [address] [address] WBC 5.18 10*3/uL 4.50-11.00 RBC 5.10 10*6/uL 4.23-5.66 HGB 14.3 g/dL 12.8-17 HCT 43.5 39.2-50.4 MCV 85.3 fL 82-99 MCHC 32.9 g/dL 30.8-35.1 PLT 179 10*3/uL 140-360 RDW-CV 12.8 12.0-16.0 MCH 28.0 pg 26.2-32.6 Aug 27, 2023 09:19 AM [facility] MAGNESIUM Specimen Type: SERUM No comment entered. Ordering Provider: THERESA BUCKNER AM Report Released Date/Time: Jun 25, 2023 08:42 AM Reporting Lab: [facility] [address] [facility] [facility] [address] Performing Lab: [address] [address] MAGNESIUM 2.0 mg/dL 1.6-2.6 Aug 27, 2023 09:19 AM [facility] HEMOGLOBIN A1C PANEL Specimen Type: BLOOD [...] Jun 25, 2023 08:42 AM Reporting Lab: [facility] [address] [facility] [facility] [address] Performing Lab: [facility] [address] [facility] [facility] [address] HEMOGLOBIN A1C 5.4 4.0-5.6 Aug 27, 2023 09:19 AM [facility] TSH Specimen Type: SERUM No comment entered. Ordering Provider: THERESA BUCKNER AM Report Released Date/Time: Jun 25, 2023 08:42 AM Reporting [facility]: [facility] [address] [facility] [facility] [address] Performing Lab: [facility] [address] [facility] [facility] [address] TSH 1.38 u[IU]/mL 0.35-5.00 Aug 27, 2023 09:19 AM [facility] PSA Specimen Type: SERUM No comment entered. Ordering Provider: THERESA BUCKNER AM Report Released Date/Time: Jun 25, 2023 08:42 AM Reporting [facility]: [facility] [address] [facility] [address] Performing Lab: [facility] [address] [facility] [facility] [address] PSA 1.35 ng/mL 0.00-4.00 Aug 27, 2023 09:19 AM [facility] BASIC METABOLIC PANEL (fasting) Specimen Type: SERUM No comment entered. Ordering Provider: THERESA BUCKNER AM Report Released Date/Time: Jun 25, 2023 08:42 AM Reporting Lab: [facility] [address] [facility] [facility] [address] Performing Lab: [facility] [address] [facility] [facility] [address] UREA NITROGEN 15 mg/dL 7-25 GLUCOSE 95 mg/dL 65-100 SODIUM 142 mmol/L 135-145 POTASSIUM 4.3 mmol/L 3.5-5.0 CHLORIDE 107 mmol/L 100-110 CO2 25 meq/L 20-30 CREATININE, Serum 0.68 mg/dL 0.50-1.40 eGFR(CKD-EPI 2020) >90 mL/min >60 Aug 27, 2023 09:19 AM [facility] LIPID PANEL FASTING Specimen Type: SERUM No comment entered. Ordering Provider: THERESA BUCKNER AM Report Released Date/Time: Jun 25, 2023 08:42 AM Reporting Lab: [facility] [address] [facility] [facility] [address] Performing Lab: [address] [address] CHOLESTEROL 183 mg/dL TRIGLYCERIDE 112 mg/dL 0-150 LDL calculated 120 mg/dL 0-129 CHOL/HDL 4.5 HDL CHOLESTEROL 41 mg/dL 40-60 Aug 27, 2023 09:19 AM [facility] LIVER FUNCTION Specimen Type: SERUM No comment entered. Ordering Provider: THERESA BUCKNER AM Report Released Date/Time: Jun 25, 2023 08:42 AM Reporting Lab: [facility] [address] [facility] [address] Performing Lab: [address] [address] PROTEIN,TOTAL 6.2 g/dL 6.0-8.3 ALBUMIN 3.6 g/dL 3.5-5.0 ALKALINE PHOSPHATASE 75 U/L 40-150 AST 10 U/L 5-34 ALT 15 U/L BILIRUBIN, TOTAL 0.9 mg/dL 0.2-1.2 Social History: Smoking Status (Most current) and Tobacco Use (All prior to encounter date) This section includes the most current, and the historical, smoking and tobacco- related health factors from the [place] facility where the Encounter took place. Current Smoking Status This section includes the most current smoking, or tobacco-related health factor, from the [place] facility where the Encounter took place. Date/Time Current Smoking Status Comment Medina alcocer Jan 09, 2023 05:09 PM VA-TOBACCO FORMER USER [facility] Tobacco Use History This section includes a history of the smoking, or tobacco-related health factors, that were collected on or before the date of the Encounter. The data comes from the [place] facility where the Encounter took place. Date/Time Smoking Status/Tobac co Use Comment Facility Jan 09, 2023 05:09 PM VA-TOBACCO QUIT 15 YRS OR MORE [facility] Jan 04, 2017 07:42 AM LIFETIME NON-TOBACCO USER [facility] Dec 26, 2015 09:20 AM QUIT TOBACCO USE > 7 YEARS AGO quit in 1997 [facility] October 27, 2003 03:29 PM HISTORY OF SMOKING Smoke free 6 years [facility] Jan 02, 2002 08:56 AM HISTORY OF SMOKING [facility] Jan 02, 2002 08:56 AM QUIT TOBACCO USE > 7 YEARS AGO [facility] Jan 14, 2001 11:25 AM HISTORY OF SMOKING non smoker 4 years [facility] Encounter Notes: All associated encounter notes This section contains the clinical notes associated to the Encounter. Date/Time Encounter Note(s) Provider Source Jul 30, 2023 01:30 PM PHARMACY OUTPATIEN T NOTE: LOCAL TITLE: PHARMACY CLINIC NOTE STANDARD TITLE: PHARMACY OUTPATIENT NOTE DATE OF NOTE: JUL 30, 2023@13:30 ENTRY DATE: JUL 30, 2023@13:30:31 AUTHOR: JANETH ROBINS COSIGNER: URGENCY: STATUS: COMPLETED V Introduction: Visit is being conducted by [place] [facility]. [place] identified with 2 identifiers: [X] Full Name [X] Date of [ ] [place] ID Card Emergency Plan: [place] confirmed and/or provided the following information in case of emergency or technology failure. PATIENT PHONE - PHONE NUMBER [CELLULAR] - DIANE RASCON [address], [place], [address] [facility]- present location- refused to give any specifics Wolcott's present location and address for appointment: 's emergency contact name and phone number: Patient Phone Numbers: Cell: No data available Home: Work: No data available Emergency Contact: Name: ELIO MARTINEZ Relationship: MOTHER Secondary Emergency Contact: Name: No data available Relationship: No data available Phone: No data available Secondary Next of Kin Contact Name: No data available Relationship: No data available Phone: No data available reported that location is private and safe: Yes Informed Consent: [place] informed of the risks and benefits of Telehealth video care. [place] has the right to refuse video services. If refuses video visit, a [id number] visit will be scheduled. verbalized consent for this video visit: Yes provided consent for any other persons present for visit: N/A If yes, who and relationship to patient: Secure visit: Visit was locked for security and privacy:Yes Patient referred by Victorino Buckner for consideration of weight management medications. Pt was last spoken with on 07/09/23 via [facility] in which no weight loss medications were initiated. Pt reports he has received the packet from the [employer] program. He states its a little overwhelming how much paper work it is. He wishes he could participate in an in person program ( cannot d/t work) as it may be more beneficial. Reviewed med rec. BMI: BMI: 51.9 Most recent BP: 146/97 (03/13/2023 14:51) PMH: Code Description I10. HTN - Hypertension ([facility] [id number]) G47.30 Sleep apnea ([facility] [id number]) H93.19 Tinnitus ([facility] [id number]) G44.001 Cluster headache ([facility] [id number]) 592.0 Calculus of Kidney (ICD-9-CM 592.0) 473.9 Chronic sinusitis (ICD-9-CM 473.9) E66.9 Obesity ([facility] [id number]) ALLERGIES/ADRs: Patient has answered NKA Reviewed chart and noted the following: [X ] Patient has confounding comorbidities of: -HTN, DM, JW, dyslipidemia, metabolic syndrome, OA, BRANNON [ ] EtOH and tobacco use [ ] Patient desiring oral medication Active Outpatient Medications (including Supplies): Issue Date Status Last Fill Active Outpatient Medications Refills Expiration 1) NORTRIPTYLINE HCL 25MG CAP Qty: 90 for ACTIVE Issu:05-23-23 90 days Sig: TAKE ONE CAPSULE BY Refills: 3 Last:05-23-23 MOUTH AT BEDTIME HEADACHE Expr:05-23-24 2) SUMATRIPTAN SUCCINATE 100MG TAB Qty: 18 ACTIVE Issu:05-23-23 for 30 days Sig: TAKE ONE TABLET BY Refills: 11 Last:05-23-23 MOUTH DIRECTED FOR MIGRAINE Expr:05-23-24 HEADACHE AT ONSET OF HEADACHE; MAY REPEAT IN 2 HOURS IF FIRST DOSE IS NOT EFFECTIVE Start Date Active Non-VA Medications Refills Expiration 1) Non-VA OTHER CAP/TAB Sig: ANTI ACTIVE DEPRESSANT BY MOUTH 3 Total Medications PERTINENT LABS: New labs to be drawn soon. Patient must meet the following criteria to be eligible for weight loss medication management at [facility]: [ ] Verifiable participation in a comprehensive lifestyle intervention that targets all three aspects of weight management: diet, physical activity, behavioral changes (i.e. MOVE program, Marilyn, weight watchers) [X ] BMI is greater than or equal to 30 kg/m2 OR BMI is greater than or equal to 27 kg/m2 with at least one weight-related comorbidity [ ] Medication regimen has been reviewed to identify and discontinue medications associated with weight gain when clinically safe and appropriate Medications Associated with Weight Gain: ( ) anticonvulsants: ( ) antidepressants ( ) antipyschotics ( ) beta-blockers: ( ) glucocorticoids ( ) long-acting injectable contraceptives ( ) sulfonylureas ( ) insulin ( ) thiazolidinediones Common Exclusion Criteria: [ ] [ ] Concurrent use of another medication FDA approved for weight loss Review of Data, Drug Interactions, PBM Criteria for Use (CFU) and National PBM Guidance on Selection of a Weight Management Medication: 1. Phentermine/Topiramate (Qsymia): Exclusion criteria: [ ] Glaucoma [ ] Hyperthyroidism [ ] Recent cardiac or cerebrovascular event (within past 6 months) [ ] Unstable angina [ ] End stage renal disease on dialysis [ ] Severe hepatic impairment (Child-Crawford Class C) [ ] History of cholelithiasis (within the past 6 months) [X] History of nephrolithiasis [ ] Patient has history of suicidal attempts or active suicidal ideation (unless mental health consultation supports benefit of phentermine/ topiramate in patient with history of suicide attempts or recent suicidal ideation) [ ] Use of a monoamine oxidase inhibitor within the past 14 days [ ] Concomitant use of an oral carbonic anhydrase inhibitor [ ] Prescribed topiramate for another condition (e.g., seizures, migraine headache) where the addition of phentermine/topiramate would exceed a total dose of 400 mg topiramate per day Additional considerations: - hx of kidney stones & htn 2. Orlistat Exclusion criteria: [ ] Chronic malabsorption syndrome or chronic diarrhea [ ] History of cholestasis, hyperoxaluria or calcium oxalate nephrolithiasis Additional considerations: - would not provide enough weightloss effects 3. Liraglutide (Saxenda): Exclusion criteria: [ ] Type 1 diabetes [ ] Personal or family history of medullary thyroid carcinoma or with Multiple Endocrine Neoplasia syndrome type 2 (MEN 2) [ ] Severe gastrointestinal dysmotility, including gastroparesis [ ] History of pancreatitis (does not pertain to patients for whom the cause of pancreatitis is known and no longer presents a risk) [ ] Patient has a history of suicidal attempts or active suicidal ideation (unless a mental health consultation supports benefits of liraglutide in a patient with a history of suicide attempts or recent suicidal ideation) Additional inclusion criteria: The answer to ONE of the following must be fulfilled in order to meet criteria for liraglutide (Saxenda). [ ] Patient has had an inadequate response, contraindication or intolerance to all [place] National Formulary agents for chronic weight management (e.g., phentermine/topiramate; naltrexone/bupropion; orlistat) [ ] Patient meets diagnostic criteria for prediabetes [ ] Patient has type 2 diabetes AND is unable to use semaglutide (OZEMPIC) as per the Criteria for Use for management of diabetes 4. Semaglutide (Wegovy) Exclusion criteria: [ ] 1 Type 1 diabetes [ ] Personal or family history of medullary thyroid carcinoma or with Multiple Endocrine Neoplasia syndrome type 2 [ ] Severe gastrointestinal dysmotility, including gastroparesis [ ] History of pancreatitis (does not pertain to patients for whom the cause of pancreatitis is known and no longer presents a risk) [ ] The patient has a history of suicidal attempts or active suicidal ideation (unless a mental health consultation supports benefits of semaglutide in a patient with a history of suicide attempts or recent suicidal ideation) Additional inclusion criteria: The answer to ONE of the following must be fulfilled in order to meet criteria for semaglutide (Wegovy). [ ] Patient has an inadequate response, contraindication or intolerance to at least two [place] National Formulary agents for chronic weight management [ ] Patient with BMI >/= 40 OR BMI 35 to < 40 with a significant or difficult to manage weight-related condition or is unable to achieve weight loss goals required for surgery [ ] Patient has type 2 diabetes treated with semaglutide (Ozempic) AND requires additional weight loss to achieve great than or equal to 5% reduction in initial body weight SUMMARY OF RECOMMENDATIONS: - Pt agreed to continue with MOVE! program. Given BMI and no contrainidications, pt would be most likely to be successful with GLP1a. Unfortunately at this time there are no new starts with either medication on formulary. Will continue to f/u with procurement. - Encouraged exericse and healthy eating Time spent: 15 mins RTC: prn COLLIN PharmD Pharmacotherapy Rem V12: PHARMACIST INTERVENTIONS: OBESITY/WEIGHT MANAGEMENT Medication monitoring, no dosage change required, continue to monitor and assess Medication reconciliation (changes to active VA and non-VA medication lists to reconcile differences) Changes to medication lists made Add or renew medication /blair/ JANETH ROBINS, PHARMD,BCPS CLINICAL PHARMACY PRACTITIONER Signed: 07/30/2023 15:15 JANETH ROBINS [facility]
--- OUTSIDE RECORDS SUMMARY | 2024-06-04 11:15 | XMS_ITS ---
Author Name [facility] [place] Address [address] [place] [id number] Care Team Providers Care Transplant Nurse Name Role Phone DELIA CHRISTIANSEN [facility] Insurance Providers: All historical and current Section [...] Name Patient's Relationship to Policy [facility] Apr 03, 2012 [phone] DIANE RASCON SPOUSE Selected Encounter This section includes the information on record at [place] for the Encounter. Date/Time Encounter Type Encounter Description Reason Provider Source Aug 22, 2023 02:00 PM PSYTX W PT 60 MINUTES [facility] - IND ICD-10-CM H93.19 Tinnitus, unspecified ear DIYA BENNETT Encounter Template Text not used by [place] Assessments - Encounter Diagnoses This section includes the primary and secondary diagnoses documented for the Encounter. Date/Time Primary/Secondary Diagnosis Diagnosis Name Provider Source Aug 22, 2023 03:57 PM PRIMARY Tinnitus, unspecified ear PENNY,DELILAH A [facility] [place] [facility] Aug 22, 2023 03:57 PM SECONDARY Depression, unspecified PENNY,DELILAH A [facility] [place] [facility] Aug 22, 2023 03:57 PM SECONDARY Generalized anxiety disorder DELILAH FRANCIS [facility] [place] [facility] Aug 22, 2023 03:57 PM SECONDARY Primary insomnia DELILAH FRANCIS [facility] [place] [facility] Plan of Treatment: Future Appointments (+ 6 months) and Future Tests (+/- 45 days) The Plan of Treatment section includes future care activities for the patient from all [place] treatmentfacilities. This section includes future appointments and future orders which are active, pending or scheduled. Future Appointments This section includes appointments that were scheduled to occur 6 months from the date of the Encounter, up to a maximum of 20 appointments. The data comes from all [place] treatment facilities. Appointment Date/Time Appointment Type Appointme nt Facility Name Sep 06, 2023 02:00 PM AMBULATORY - PSYCHIATRY [facility] [place] [facility] Sep 19, 2023 01:00 PM AMBULATORY - PSYCHIATRY [facility] [place] [facility] October 04, 2023 02:00 PM AMBULATORY - PSYCHIATRY [facility] [place] [facility] October 18, 2023 02:00 PM AMBULATORY - PSYCHIATRY [facility] [place] [facility] October 30, 2023 03:30 PM AMBULATORY - NONE [facility] [place] [facility] October 30, 2023 03:30 PM AMBULATORY - NEUROLOGY [facility] November 01, 2023 02:00 PM AMBULATORY - PSYCHIATRY [facility] [place] [facility] Nov 15, 2023 02:00 PM AMBULATORY - PSYCHIATRY [facility] [place] [facility] Nov 28, 2023 02:00 PM AMBULATORY - PSYCHIATRY [facility] [place] [facility] Dec 02, 2023 03:30 PM AMBULATORY - MEDICINE [facility] [place] [facility] Dec 20, 2023 02:00 PM AMBULATORY - PSYCHIATRY [facility] [place] [facility] Jan 17, 2024 02:00 PM AMBULATORY - PSYCHIATRY [facility] [place] [facility] Jan 31, 2024 02:00 PM AMBULATORY - PSYCHIATRY [facility] [place] [facility] Feb 11, 2024 02:30 PM AMBULATORY - NEUROLOGY [facility] [place] [facility] Lab Results: +/- 30 days of the encounter This section includes the Chemistry and Hematology Lab Results on record with [place] for the patient. Radiology Reports and Pathology Reports are provided separately, in subsequent sections. Lab Results This section contains the Chemistry/Hematology Results that were resulted 30 days before or 30 daysafter the date of the Encounter. Date/Time Source Result Type Result - Unit Interpretation Reference Range Comment Aug 27, 2023 09:19 AM [facility] FOLATE Specimen Type: SERUM No comment entered. Ordering Provider: THERESA CHRISTIANSEN AM Report Released Date/Time: Jun 25, 2023 08:42 AM Reporting Lab: [facility] [address] [address] Performing Lab: [facility] [address] [address] FOLATE 11.13 ng/mL >5.2 Aug 27, 2023 09:19 AM [facility] THYROID T4 FREE(FT4) Specimen Type: SERUM No comment entered. Ordering Provider: THERESA CHRISTIANSEN AM Report Released Date/Time: Jun 25, 2023 08:42 AM Reporting Lab: [facility] [address] [address] Performing Lab: [facility] [address] [address] THYROID T4 FREE(FT4) 0.90 ng/dL 0.6-1.6 Aug 27, 2023 09:19 AM [facility] VITAMIN B12 Specimen Type: SERUM No comment entered. Ordering Provider: THERESA CHRISTIANSEN AM Report Released Date/Time: Jun 25, 2023 08:42 AM Reporting Lab: [facility] [address] [address] Performing Lab: [address] [address] VITAMIN B12 469 pg/mL 200-900 Aug 27, 2023 09:19 AM [facility] VITAMIN D (25-OH) Specimen Type: SERUM No comment entered. Ordering Provider: THERESA CHRISTIANSEN AM Report Released Date/Time: Jun 25, 2023 08:42 AM Reporting Lab: [address] [address] Performing Lab: [address] [address] VITAMIN D (25-OH) 16 ng/mL L 20-50 Aug 27, 2023 09:19 AM [facility] CBC Specimen Type: BLOOD No comment entered. Ordering Provider: THERESA CHRISTIANSEN AM Report Released Date/Time: Jun 25, 2023 08:42 AM Reporting Lab: [address] [address] Performing Lab: [address] [address] WBC 5.18 10*3/uL 4.50-11.00 RBC 5.10 10*6/uL [...] Jun 25, 2023 08:42 AM Reporting Lab: [address] [address] Performing Lab: [address] [address] HEMOGLOBIN A1C 5.4 4.0-5.6 Aug 27, 2023 09:19 AM [facility] Specimen Type: SERUM No comment entered. Ordering Provider: THERESA CHRISTIANSEN AM Report Released Date/Time: Jun 25, 2023 08:42 AM Reporting Lab: [facility] [address] [address] Performing Lab: [facility] [address] [address] MAGNESIUM 2.0 mg/dL 1.6-2.6 Aug 27, 2023 09:19 AM [facility] TSH Specimen Type: SERUM No comment entered. Ordering Provider: THERESA CHRISTIANSEN AM Report Released Date/Time: Jun 25, 2023 08:42 AM Reporting [facility]: [facility] [address] [address] Performing [facility]: [facility] [address] [address] TSH 1.38 u[IU]/mL 0.35-5.00 Aug 27, 2023 09:19 AM [facility] PSA Specimen Type: SERUM No comment entered. Ordering Provider: THERESA CHRISTIANSEN AM Report Released Date/Time: Jun 25, 2023 08:42 AM Reporting Lab: [facility] [address] [address] Performing Lab: [facility] [address] [address] PSA 1.35 ng/mL 0.00-4.00 Aug 27, 2023 09:19 AM [facility] BASIC METABOLIC PANEL (fasting) Specimen Type: SERUM No comment entered. Ordering Provider: THERESA CHRISTIANSEN AM Report Released Date/Time: Jun 25, 2023 08:42 AM Reporting Lab: [facility] [address] [address] Performing Lab: [facility] [address] [address] UREA NITROGEN 15 mg/dL 7-25 GLUCOSE 95 mg/dL 65-100 SODIUM 142 mmol/L 135-145 POTASSIUM 4.3 mmol/L 3.5-5.0 CHLORIDE 107 mmol/L 100-110 CO2 25 meq/L 20-30 CREATININE, Serum 0.68 mg/dL 0.50-1.40 eGFR(CKD-EPI 2020) >90 mL/min >60 Aug 27, 2023 09:19 AM [facility] LIVER FUNCTION Specimen Type: SERUM No comment entered. Ordering Provider: THERESA CHRISTIANSEN AM Report Released Date/Time: Jun 25, 2023 08:42 AM Reporting Lab: [address] [address] Performing Lab: [address] [address] PROTEIN,TOTAL 6.2 g/dL 6.0-8.3 ALBUMIN 3.6 g/dL 3.5-5.0 ALKALINE PHOSPHATASE 75 U/L 40-150 AST 10 U/L 5-34 ALT 15 U/L BILIRUBIN, TOTAL 0.9 mg/dL 0.2-1.2 Aug 27, 2023 09:19 AM [facility] LIPID PANEL FASTING Specimen Type: SERUM No comment entered. Ordering Provider: THERESA CHRISTIANSEN AM Report Released Date/Time: Jun 25, 2023 08:42 AM Reporting Lab: [address] [address] Performing Lab: [address] [address] CHOLESTEROL 183 mg/dL TRIGLYCERIDE 112 mg/dL 0-150 LDL calculated 120 mg/dL 0-129 CHOL/HDL 4.5 HDL CHOLESTEROL 41 mg/dL 40-60 Social History: Smoking Status (Most current) and Tobacco Use (All prior to encounter date) This section includes the most current, and the historical, smoking and tobacco- related health factors from the [place] facility where the Encounter took place. Current Smoking Status This section includes the most current smoking, or tobacco-related health factor, from the [place] facility where the Encounter took place. Date/Time Current Smoking Status Comment Facil carlyn Jan 09, 2023 05:09 PM VA-TOBACCO FORMER USER [facility] Tobacco Use History This section includes a history of the smoking, or tobacco-related health factors, that were collected on or before the date of the Encounter. The data comes from the [place] facility where the Encounter took place. Date/Time Smoking Status/Tobac co Use Comment Facility Jan 09, 2023 05:09 PM VA-TOBACCO QUIT 15 YRS OR MORE [facility] Jan 04, 2017 07:42 AM LIFETIME NON-TOBACCO USER [facility] Dec 26, 2015 09:20 AM QUIT TOBACCO USE > 7 YEARS AGO quit in 1997 [facility] October 27, 2003 03:29 PM HISTORY OF SMOKING Smoke free 6 years [facility] Jan 02, 2002 08:56 AM HISTORY OF SMOKING [facility] Jan 02, 2002 08:56 AM QUIT TOBACCO USE > 7 YEARS AGO [facility] Jan 14, 2001 11:25 AM HISTORY OF SMOKING non smoker 4 years [facility] Encounter Notes: All associated encounter notes This section contains the clinical notes associated to the Encounter. Date/Time Encounter Note(s) Provider Source Aug 22, 2023 03:03 PM MENTAL HEALTH NOTE : LOCAL TITLE: TC ASSIGNMENT/REASSIGNMENT STANDARD TITLE: MENTAL HEALTH NOTE DATE OF NOTE: AUG 22, 2023@15:03 ENTRY DATE: AUG 27, 2023@15:04:11 AUTHOR: DELILAH FRANCIS COSIGNER: BLAYNE BENNETT URGENCY: STATUS: COMPLETED Supervision: This case is being supervised by Blayne Bennett, Ph.D., full-time Staff Psychologist. Diagnosis, treatment plan, and response to care are reviewed in one hour weekly individual supervision meetings. MHTC Reassignment This note documents the reassignment of the [place]'s Mental Health Facilities Mechanical Design Engineer (MHTC) on Aug. The 's new Mental Health Facilities Mechanical Design Engineer is: TC Name: Gee Devine LCSW GAYLA Contact information: Office Phone:[phone] Other contact: This 's existing MHTC was reassigned due to: Move to new therapy provider and transition to [facility] clinic model. The assignment of the MHTC and education on the role of the MHTC in the 's mental health care was discussed with the [place], who verbally concurred with the reassignment. The new MHTC's contact information was provided in writing to [place]. The [place]'s CPRS chart (i.e., PCMM) and MH Treatment Plan have been updated to reflect the new MHTC Assignment. The [place]'s new MHTC, along with the previous MHTC if applicable, are included as additional signers on this note. /es/ DELILAH FRANCIS, PHD [facility] Post-Doctoral Psychology Trainee Signed: 08/27/2023 15:05 /es/ Blayne Bennett, Clinical Psychologist, [facility] Health Clinic Cosigned: 08/28/2023 08:13 Receipt Acknowledged By: 08/28/2023 12:50 /es/ GEE DEVINE [facility] Retail Cashier Associate 08/28/2023 11:48 /es/ CONNER ESPINOSA Solutions Specialist SL DELILAH FRANCIS [facility] [place] [facility] Aug 22, 2023 02:55 PM PSYCHOLOGY CONSULT : LOCAL TITLE: CONSULT REPORT/MENTAL HEALTH/PSYCHOLOGY STANDARD TITLE: PSYCHOLOGY CONSULT DATE OF NOTE: AUG 22, 2023@14:55 ENTRY DATE: AUG 22, 2023@15:00:31 AUTHOR: DELILAH FRANCIS EXP COSIGNER: BLAYNE BENNETT URGENCY: STATUS: COMPLETED Supervision: This case is being supervised by Blayne Bennett, PhD, full-time Staff Psychologist. Diagnosis, treatment plan, and response to care are reviewed in one hour weekly individual supervision meetings. This was a 60 minute appointment to initiate individual psychotherapy with a presenting concern of depression and anxiety. The was oriented to clinic procedures, supervision and limits of confidentiality. HX OF PRESENTING CONCERN: I've got some insomnia, some anxiety and depression due to tinnitus, I'm currently seeing a psychiatrist and I'm on some medicine. I'm taking some trazadone for my insomnia, it gives me a few hours of good sleep. I'm sleeping for probably a good 3-4 hours. Then I wake up with my ears ringing and I start thinking real hard to shut things off. I have loud dreams where I am thinking hard about things to stop the ringing. The reported that the insomnia has been going on for 12 years. He said: The older I get the harder it is to deal with. He reported that he had tinnitus since he was in the service. When your 22 you don't think about that. I had more distractions in my life. Over time it got worse and worse. He said that he spent 10-15 years dealing with denial. The [place] reported experiencing increasing anxiety and depression since around the time the insomnia began. He shared that he worries at times that his difficulties are visible to others: Everybody knows that there is something wrong with me, they can see something is wrong. I had little minor panic attacks. I'll feel like a sonic boom in my head?I wonder sometimes if they can see it in my face. The shared that he has reduced his socialization over the past 5 years. He said: It's gotten pretty bad where I don't want to go out and do something. I'm afraid I'm going to say something, do something or get angry. RISK: The [place] endorsed passive suicidal ideation, without history of clear plan or intent. The last period of ideation occurred around one week ago. He said I think to myself maybe I'd be better off maybe my family would be better off I wasn't around. The denied history of HI. SUBSTANCE USE: The [place] reported consuming a couple of drinks a month. He denied current cannabis consumption, or the use of any other recreation substances. He reported consuming between 1-1.5 cups of coffee daily. RELEVANT MEDICAL: The reported chronic pain (03/12) from prostrating headaches that used to occur around once a week before he started medications for this issue. He shared that the medications significantly improved this. The reported poor quality sleep with 3-4 hours nightly. He shared that his recent trazadone prescription helps with falling asleep, and that he is getting better quality of sleep then he was before that medication. He said that he lays down around 2100, and that it takes him 3-4 hours to fall asleep. He said that his mind will race and that he tries to force himself to think hard about other things to distract himself. He reported an average of one awakening a night to urinate, and that sometimes he is able to fall back asleep after this, and sometimes not. He shared that his usual final wake time is [id number] and that he takes as much as 30 minutes to get out of bed. He denied any parasomnia symptoms. He denied nocturnal eating, or exercise close to bed. He did report pre-sleep electronics use. The [place] is diagnosed with JW and recently began using a CPAP machine. He indicated that he has had difficulties acclimating to the mask. He is currently trialing an alternate mask design. We briefly discussed mask desensitization during waking hours. He reported increased appetite. I think over the past 20 years, my depression and anxiety and insomnia and my overall mental health has caused weight. Additionally gained weight in last 6 months. RELEVANT PSYCHOSOCIAL: See [facility] Intake from 07/01/2023 for more detailed psychosocial history. From [facility]: Mando was born and raised by both parents in [place]. His parents before he was born. He has one half-brother from father's relationship. He lived primarily with mother and stepfather and saw his father frequently. Mando has been for 20 plus years. He has a 12yo biological son and 25yr old stepson that he adopted when he was a little kid. In today's interview the [place] denied any childhood experiences of abuse or neglect. He said I had a good life. From [facility]: Mando served in [employer] from 1989 to 1992. 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 [place] is not sure about toxic exposure. [place] denied any traumatic exposure and reported time in was good. He wishes he stayed in longer. 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 TREATMENT HX: The has not previously been engaged in psychotherapy. He is currently working with a psychiatrist on medication for insomnia and anxiety/depression. ASSESSMENT: Mental Status: The was on time to the appointment and was fully engaged. He gave some indications of weariness to provide information. Grooming and dress were WNL. Gross motor function was WNL. Mood was dysphoric and affect was congruent and varied appropriately. Speech was normal in rate, tone and prosody. Insight and judgement were intact. There was no evidence of A/VH or thought disorder. MEASURMENT: Measures to be completed at a later date. IMPRESSIONS: The presented with a long history of anxiety and depression symptoms that co-occur and developed with insomnia (since at least 12 years ago). The shared the impression that chronic tinnitus is a major factor for all of these issues. The tinnitus is reported as severe, and as significantly diminishing quality of life. The reported that his ability to cope with the tinnitus, and the impact of it on mood and sleep has increased over time. These factors seem to support the presence of an unspecified depressive disorder (likely of the persistent type, pending further data), a generalized anxiety disorder, and an insomnia disorder. There is additional evidence suggesting that the [place]'s difficulties have lead to increases in anxiety specifically social situations (fearing that his difficulties are obvious, or that he might say something wrong, etc). This would be consistent with a diagnosis of social anxiety disorder. The reported some sleep interfering behavior and cognitive patterns. In attempts to distract himself from tinnitus he appears to engage in stimulating thought exercises, which may interfere with sleep. The may benefit from some abridged CBT-i work or psychoeducation regarding sleep. He may also benefit from ACT based strategies to help him cope in more effective ways with tinnitus. We will explore options together. DSM DIAGNOSES (w/ICD10 codes): - F40.10 Social Anxiety Disorder - F41.1 Generalized Anxiety Disorder - F51.01 Insomnia, with mental disorder and with medical condition, persistent - F32.A Unspecified Depressive Disorder GOALS: The [place] indicated the following as their primary goals in treatment: - Develop a relationship with a provider and talk more in depth about how feeling. - Develop better coping skills for insomnia, anxiety and depression. PLAN: will RTC for individual psychotherapy on 09/06/2023 with provider, Dr. Delilah Francis. In our next 2-3 sessions we will clarify treatment goals and engage in shared decision making regarding treatment. [place] Video Connect (VVC) Standard Documentation VVC Clinician Resources Only: E911 (Emergency Call Relay Center): [phone] [facility] Crisis Line - 988 then press #1. [facility] Suicide Coordinator [phone], Ext. [phone]; Back-up Ext. [phone] [place] , [place] [phone] Introduction: Visit is being conducted by [place] [facility]. identified with 2 identifiers: [X] Full Name [X] Date of [ ] VA ID Card Emergency Plan: [place] confirmed and/or provided the following information in case of emergency or technology failure. PATIENT PHONE - PHONE NUMBER [CELLULAR] - Is patient phone number correct, if not, enter below: 's phone number: DIANE RASCON [address], [place], [address] 's present location and address for appointment: Home address above. [place]'s emergency contact name and phone number: Wilda Rascon reported that location is private and safe: Yes Informed Consent: informed of the risks and benefits of Telehealth video care. [place] has the right to refuse video services. If refuses video visit, a [id number] visit will be scheduled. [place] verbalized consent for this video visit: Yes provided consent for any other persons present for visit: N/A If yes, who and relationship to patient: Secure visit: Visit was locked for security and privacy:Yes Suicide Screen: C-SSRS Screening Lucas-Suicide Severity Rating Scale (C-SSRS Screener) 1. Over the past month, have you wished you were or wished you could go to sleep and not wake up? Yes 2. Over the past month, have you had any actual thoughts of killing yourself? Yes 3. Over the past month, have you been thinking about how you might do this? No 4. Over the past month, have you had these thoughts and had some intention of acting on them? No 5. Over the past month, have you started to work out or worked out the details of how to kill yourself? No 6. If yes, at any time in the past month did you intend to carry out this plan? Response not required due to responses to other questions. 7. In your lifetime, have you ever done anything, started to do anything, or prepared to do anything to end your life (for example, collected pills, obtained a gun, gave away valuables, went to the roof but didn't jump)? No 8. If YES, was this within the past 3 months? Response not required due to responses to other questions. /blair/ DELILAH FRANCIS, PHD [facility] Post-Doctoral Psychology Trainee Signed: 08/22/2023 15:54 /blair/ Blayne Bennett, Clinical Psychologist, Mental Health Clinic Cosigned: 08/22/2023 16:08 [facility]
--- OUTSIDE RECORDS SUMMARY | 2024-06-04 11:15 | XMS_ITS | Encounter Summary ---
Author Name [facility] [place] [facility] [place] Address [address] [place] [id number] Care Team Providers Care Boiler Washer Name Role Phone DELIA CHRISTIANSEN Primary Care Provider [facility] Insurance Providers: All historical and current Section Date Range: From patient's date of to the date document was created. This section includes the names of all active insurance providers for the patient. Insurance Provider Type of Coverage Plan Name Start of Policy Coverage End of Policy Coverage Group Number Member ID Insurance Provider's Telephone Number Policy Garner's Name Patient's Relationship to Policy Garner [facility] Apr 03, 2012 [id number] [phone] DIANE RASCON SPOUSE Selected Encounter This section includes the information on record at [place] for the Encounter. Date/Time Encounter Type Encounter Description Reason Provider Source Mar 31, 2024 02:30 PM OFFICE O/P EST MOD 30 MIN HCOE ICD-10-CM G43.019 Migraine w/o aura, intractable, without status migrainosus GARRY ROCHA [facility] Encounter Template Text not used by [place] Assessments - Encounter Diagnoses This section includes the primary and secondary diagnoses documented for the Encounter. Date/Time Primary/Secondary Diagnosis Diagnosis Name Provider Source Mar 31, 2024 02:57 PM PRIMARY Migraine w/o aura, intractable, without status migrainosus GARRY ROCHA [facility] Plan of Treatment: Future Appointments (+ 6 months) and Future Tests (+/- 45 days) The Plan of Treatment section includes future care activities for the patient from all [place] [facility] This section includes future appointments and future orders which are active, pending or scheduled. Future Appointments This section includes appointments that were scheduled to occur 6 months from the date of the Encounter, up to a maximum of 20 appointments. The data comes from all [facility]. Appointment Date/Time Appointment Type Appointme nt Facility Name Apr 01, 2024 08:30 AM AMBULATORY - PS[place]IATRY [place] [facility] [place] [facility] Apr 24, 2024 02:00 PM AMBULATORY - PS[place]CHIATRY [place] [facility] [place] [facility] May 04, 2024 03:00 PM AMBULATORY - PSYCHIATRY [place] [facility] [place] [facility] May 15, 2024 02:00 PM AMBULATORY - PS[place]IATRY [place] [facility] [place] [facility] May 25, 2024 03:00 PM AMBULATORY - PS[place]CHIATRY [place] [facility] [place] [facility] Jun 12, 2024 02:00 PM AMBULATORY - PS[place]CHIATRY [place] [facility] [place] [facility] Jun 23, 2024 03:30 PM AMBULATORY - PS[place]CHIATRY [place] [facility] [place] [facility] Jul 07, 2024 01:30 PM [facility] Jul 07, 2024 01:30 PM [facility] [place] [facility] Active, Pending, and Scheduled Orders This section includes a listing of several types of active, pending, and scheduled orders, including clinic medications orders, diagnostic test orders, procedure orders and consult orders; where the start date of the order is 45 days before the date of the Encounter or 45 days after the date of theEncounter. The data comes from all [facility]. Test Date/Time Test Type Test Details Facility Name Apr 07, 2024 10:17 AM Consult Order COMMUNITY CARE-OPTOMETRY ROUTINE EYE EXAM Cons Manager Fire's Choice [facility] Encounter Notes: All associated encounter notes This section contains the clinical notes associated to the Encounter. Date/Time Encounter Note(s) Provider Source Mar 31, 2024 02:56 PM NEUROLOGY OUTPATIE NT NOTE: LOCAL TITLE: NEUROLOGY OUTPATIENT PROGRESS NOTE STANDARD TITLE: NEUROLOGY OUTPATIENT NOTE DATE OF NOTE: MAR 31, 2024@14:56 ENTRY DATE: MAR 31, 2024@14:56:51 AUTHOR: GARRY ROCHA EXP COSIGNER: URGENCY: STATUS: COMPLETED NEUROLOGY OUTPATIENT PROGRESS NOTE Has ADDENDA Clinical services provided by Dr. Garry Rocha via telehealth from the [facility] to the [facility] site located in the [facility]. Clinical Service provided: f/u Service Delivery Method: VVC Length of Service:30 min Primary Diagnosis:Migraine, Intractable, with or without aura For a complete progress note, please see the [facility] Medical record (accessible through [employer]). /es/ Garry Rocha MD, MPH [id number] [facility] TelePain Lead Signed: 03/31/2024 14:57 03/31/2024 ADDENDUM STATUS: COMPLETED Clinical services provided by Dr. Garry Rocha via telehealth from the [facility] to the [facility] located in the [facility]. Clinical Service provided: f/u Service Delivery Method: VVC Length of Service:30 min Primary Diagnosis:Migraine, Intractable, with or without aura For a complete progress note, please see the [facility] Medical record (accessible through [employer]). /blair/ Garry Rocha MD, MPH [id number] [facility] TelePain Lead Signed: 03/31/2024 14:59 GARRY ROCHA [facility]
--- OUTSIDE RECORDS SUMMARY | 2024-06-04 11:15 | XMS_ITS ---
Author Name [facility] [place] [facility] [place] Organization [facility] [place] Address [address] [place] [address] Care Team Providers Care Supervisor Dried Yeast Name Role Phone VICTORINO BUCKNER Primary Care Provider [facility] Insurance Providers: All historical and current [...] Garner's Name Patient's Relationship to Policy Garner [facility] Apr 03, 2012 [id number] DIANE RASCON SPOUSE Selected Encounter This section includes the information on record at [place] for the Encounter. Date/Time Encounter Type Encounter Description Reason Provider Source Jun 25, 2023 08:30 AM OFFICE O/P EST MOD 30 MIN PRIMARY CARE/MEDICINE ICD-10-CM I10 Essential (primary) hypertension LAURE BUCKNER [place] Encounter Template Text not used by [place] Assessments - Encounter Diagnoses This section includes the primary and secondary diagnoses documented for the Encounter. Date/Time Primary/Secondary Diagnosis Diagnosis Name Provider Source Jul 05, 2023 02:12 PM PRIMARY Essential (primary) hypertension LAURE BUCKNER [facility] [place] [facility] Jul 05, 2023 02:12 PM SECONDARY Cluster headache syndrome, unspecified, intractable BUCKNER,WILL BRANDO J [place] [facility] [place] [facility] Jul 05, 2023 02:12 PM SECONDARY Obesity, unspecified BUCKNER,WILL BRANDO J [place] [facility] [place] [facility] Jul 05, 2023 02:12 PM SECONDARY Sleep apnea, unspecified BUCKNER,WILL BRANDO J [facility] [place] [facility] Jul 05, 2023 02:12 PM SECONDARY Tinnitus, unspecified ear BUCKNER,WILL BRANDO J [place] [facility] [place] [facility] Plan of Treatment: Future Appointments (+ 6 months) and Future Tests (+/- 45 days) The Plan of Treatment section includes future care activities for the patient from all [place] treatmentfacilities. This section includes future appointments and future orders which are active, pending or scheduled. Future Appointments This section includes appointments that were scheduled to occur 6 months from the date of the Encounter, up to a maximum of 20 appointments. The data comes from all [place] treatment facilities. Appointment Date/Time Appointment Type Appointme nt Facility Name Jul 01, 2023 10:30 AM AMBULATORY - PS[place]CHIATRY [facility] [place] [facility] Jul 09, 2023 01:30 PM AMBULATORY - NONE [facility] [place] [facility] Jul 30, 2023 01:30 PM AMBULATORY - NONE [facility] [place] [facility] Aug 22, 2023 09:30 AM AMBULATORY - NONE [facility] [place] [facility] Aug 22, 2023 09:30 AM [facility] Aug 22, 2023 02:00 PM AMBULATORY - PSYCHIATRY [facility] [place] [facility] Sep 06, 2023 02:00 PM AMBULATORY - PSYCHIATRY [facility] [place] [facility] Sep 19, 2023 01:00 PM AMBULATORY - PSYCHIATRY [facility] [place] [facility] October 04, 2023 02:00 PM AMBULATORY - PSYCHIATRY [facility] [facility] October 18, 2023 02:00 PM AMBULATORY - PSYCHIATRY [facility] [place] [facility] October 30, 2023 03:30 PM AMBULATORY - NONE [facility] [place] [facility] October 30, 2023 03:30 PM [facility] November 01, 2023 02:00 PM AMBULATORY - PSYCHIATRY [place] [facility] [facility] Nov 15, 2023 02:00 PM AMBULATORY - PSYCHIATRY [place] [facility] [facility] Nov 28, 2023 02:00 PM AMBULATORY - PSYCHIATRY [place] [facility] [facility] Dec 02, 2023 03:30 PM AMBULATORY - MEDICINE [facility] Dec 20, 2023 02:00 PM [facility] Social History: Smoking Status (Most current) and Tobacco Use (All prior to encounter date) This section includes the most current, and the historical, smoking and tobacco- related health factors from the [place] facility where the Encounter took place. Current Smoking Status This section includes the most current smoking, or tobacco-related health factor, from the [place] facility where the Encounter took place. Date/Time Current Smoking Status Comment [facility] it Jan 09, 2023 05:09 PM VA-TOBACCO FORMER USER [facility] Tobacco Use History This section includes a history of the smoking, or tobacco-related health factors, that were collected on or before the date of the Encounter. The data comes from the [place] facility where the Encounter took place. Date/Time Smoking Status/Tobac co Use Comment Facility Jan 09, 2023 05:09 PM VA-TOBACCO QUIT 15 YRS OR MORE [facility] Jan 04, 2017 07:42 AM LIFETIME NON-TOBACCO USER [facility] Dec 26, 2015 09:20 AM QUIT TOBACCO USE > 7 YEARS AGO quit in 1997 [facility] [place] [facility] October 27, 2003 03:29 PM HISTORY OF SMOKING Smoke free 6 years [facility] [place] [facility] Jan 02, 2002 08:56 AM HISTORY OF SMOKING [place] [facility] [place] [facility] Jan 02, 2002 08:56 AM QUIT TOBACCO USE > 7 YEARS AGO [facility] [place] [facility] Jan 14, 2001 11:25 AM HISTORY OF SMOKING non smoker 4 years [facility] Encounter Notes: All associated encounter notes This section contains the clinical notes associated to the Encounter. Date/Time Encounter Note(s) Provider Source Jun 25, 2023 08:43 AM TELEHEALTH NOTE: LOCAL TITLE: SNA[facility] PRIMARY CARE STANDARD TITLE: TELEHEALTH NOTE DATE OF NOTE: JUN 25, 2023@08:43 ENTRY DATE: JUN 25, 2023@08:43:42 AUTHOR: VICTORINO BUCKNER COSIGNER: URGENCY: STATUS: COMPLETED VA Video Connect (VVC) Standard Documentation VVC Clinician Resources Only: E911 (Emergency Call Relay Center): [phone] [place] Crisis Line - 988 then press #1. [facility] Suicide Coordinator - [phone], Ext. [phone]; Back-up Ext. [phone] [place] Police, [place], [place] - [phone] Introduction: Visit is being conducted by [employer]. [place] identified with 2 identifiers: [X] Full Name [X] Date of [ ] VA ID Card Emergency Plan: confirmed and/or provided the following information in case of emergency or technology failure. PATIENT PHONE - PHONE NUMBER [CELLULAR] - NONE FOUND Is patient phone number correct, if not, enter below: 's phone number: [address], [place] [address] [place]'s present location and address for appointment: work 's emergency contact name and phone number: chart [place] reported that location is private and safe: Yes Informed Consent: informed of the risks and benefits of Telehealth video care. has the right to refuse video services. If refuses video visit, a [id number] visit will be scheduled. verbalized consent for this video visit: Yes [place] provided consent for any other persons present for visit: N/A If yes, who and relationship to patient: Secure visit: Visit was locked for security and privacy:Yes Vital Signs Visualized during video visit: Chief complaint: Patient is a 52 year old [place]. HPI: Pleasant male presents via video. He is followed in the community by Dr. Dawson. Allergies: Patient has answered NKA The following VA and Non-VA meds were reconciled with patient. The patient was educated on the use of the medications including indication and side effects. Active and Recently Outpatient Medications (excluding Supplies): Active Outpatient Medications Status = 1) NORTRIPTYLINE HCL 25MG CAP TAKE ONE CAPSULE BY MOUTH ACTIVE AT BEDTIME HEADACHE 2) SUMATRIPTAN SUCCINATE 100MG TAB TAKE ONE TABLET BY ACTIVE MOUTH DIRECTED FOR MIGRAINE HEADACHE AT ONSET OF HEADACHE; MAY REPEAT IN 2 HOURS IF FIRST DOSE IS NOT EFFECTIVE Review of Systems: Constitutional: (-)for Fevers, chills, weakness, nights sweats On examination: 98.1 F [36.7 C] (03/13/2023 14:51)146/97 (03/13/2023 14:51)88 (03/13/2023 14:51) 20 (03/13/2023 14:51)8 (03/13/2023 14:51)BMI: 51.9382 lb [173.27 kg] (03/13/2023 14:51) is alert and oriented X3 Assessment/plan: Active problems - Computerized Problem List is the source for the followin. HTN - Hypertension (SCT [id number]) - he tells me it has been borderline for some time. He agrees with home monitoring, will send him a machine. 2. Sleep apnea - he had sleep study done through community PCP, we are awaiting results and once we have them, can place consult to resp if CPAP is indicated. 3. Tinnitus - chronic 4. Episodic Cluster Headache - follows in [facility]. Recently was started on nortryptline, this has been helpful. 5. OBESITY, UNSP he is interested in medication assisted wt loss, consult to Pharm D. 6. Depression/anxiety - follows with here as well as Dr. Jakub Castro in [facility], recently started on a/d medication, very helpful with taking the edge off of his anxiety. Health Care Maintenance: he has a flu shot in the community Review of medial record = 5mins Time spent with Patient including shared decision making = 20 mins Post visit documentation = 5mins Total time = 30 mins Follow up visit in 6 mos. Alert to PACT RN - Labs as necessary to address clinical status. Additional comment: Medication Reconciliation: Outpatient: Has the patient been taking medications as documented in the EMLR? YES: The patient has been taking medications as documented in the EMLR. Essential Medication List for Review used to complete this medication reconciliation. INCLUDED IN THIS LIST: Alphabetical list of active outpatient prescriptions dispensed from this DC (local) and dispensed from another DC or [facility] facility (remote) as well as inpatient orders [...] whether with a VA or non-VA provider. HTN Assess for Elevated BP>=140/90: Other Reason: this was a video visit, home monitoring initiated /blair/ Victorino Buckner DNP, CLERICAL ASSIGNER-BC, CNL Primary Care Nurse Practitioner Signed: 06/25/2023 09:03 VICTORINO BUCKNER [facility] Jun 25, 2023 08:07 AM PREVENTIVE MEDICINE NURSING NOTE: LOCAL TITLE: CLINICAL REMINDERS/NURSING STANDARD TITLE: PREVENTIVE MEDICINE NURSING NOTE DATE OF NOTE: JUN 25, 2023@08:07 ENTRY DATE: JUN 25, 2023@08:07:18 AUTHOR: SOTO SPRINGER EXP COSIGNER: URGENCY: STATUS: COMPLETED Advance Directive Screen AD: Patient does not have a completed advance directive on file at any facility, VA or outside. S/he is not interested in completing one at this time. The patient received education about Advance Directives and written notification of his/her rights. /blair/ Soto Springer, [employer] Coater SURGICAL ASSISTANT CERTIFIED,PRIMARY CARE Signed: 06/25/2023 08:09 SOTO SPRINGER [facility]
--- OUTSIDE RECORDS SUMMARY | 2024-06-04 11:15 | XMS_ITS | Encounter Summary ---
Author Name [facility] [place] [facility] [place] Address [address] [place] [id number] Care Team Providers Care Mold Presser Name Role Phone DELIA BUCKNER Primary Care Provider [facility] Insurance [...] Garner's Name Patient's Relationship to Policy Garner [facility] Apr 03, 2012 [id number] [phone] DIANE RASCON SPOUSE Selected Encounter This section includes the information on record at [place] for the Encounter. Date/Time Encounter Type Encounter Description Reason Provider Source Jul 01, 2023 10:30 AM PSYCH DIAGNOSTIC EVALUATION [facility] - IND ICD-10-CM H93.19 Tinnitus, unspecified ear PETRA MEDRANO [facility] Encounter Template Text not used by [place] Assessments - Encounter Diagnoses This section includes the primary and secondary diagnoses documented for the Encounter. 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 This section includes future appointments and future orders which are active, pending or scheduled. Future Appointments This section includes appointments that were scheduled to occur 6 months from the date of the Encounter, up to a maximum of 20 appointments. The data comes from all [place] treatment facilities. Appointment Date/Time Appointment Type Appointme nt Facility Name Jul 09, 2023 01:30 PM AMBULATORY - NONE [facility] [place] [facility] Jul 30, 2023 01:30 PM AMBULATORY - NONE [facility] [place] [facility] Aug 22, 2023 09:30 AM AMBULATORY - NONE [facility] [place] [facility] Aug 22, 2023 09:30 AM AMBULATORY - [place] [facility] Aug 22, 2023 02:00 PM AMBULATORY - PSYCHIATRY [facility] [place] [facility] Sep 06, 2023 02:00 PM AMBULATORY - PSYCHIATRY [facility] [place] [facility] Sep 19, 2023 01:00 PM AMBULATORY - PSYCHIATRY [facility] [place] [facility] October 04, 2023 02:00 PM AMBULATORY - PSYCHIATRY [facility] [place] [facility] October 18, 2023 02:00 PM AMBULATORY - PSYCHIATRY [facility] [place] [facility] October 30, 2023 03:30 PM AMBULATORY - NONE [facility] [place] [facility] October 30, 2023 03:30 PM AMBULATORY - [place]OLOGY [place] [facility] November 01, 2023 02:00 PM AMBULATORY - PSYCHIATRY [facility] [place] [facility] Nov 15, 2023 02:00 PM [facility] Nov 28, 2023 02:00 PM AMBUL[facility]ORY [place] [facility] Dec 02, 2023 03:30 PM AMBULATORY - [place]ICINE [place] [facility] Dec 20, 2023 02:00 PM [facility] Social History: Smoking Status (Most current) [...] PM VA-TOBACCO QUIT 15 YRS OR MORE [place] [facility] Jan 04, 2017 07:42 AM LIFETIME NON-TOBACCO [facility]ER [facility] Dec 26, 2015 09:20 AM QUIT TOBACCO USE > 7 YEARS AGO quit in 1997 [facility] October 27, 2003 03:29 PM HISTORY OF SMOKING Smoke free 6 years [facility] Jan 02, 2002 08:56 AM HISTORY OF SMOKING [place] [facility] Jan 02, 2002 08:56 AM QUIT TOBACCO USE > 7 YEARS AGO [facility] Jan 14, 2001 11:25 AM HISTORY OF SMOKING non smoker 4 years [facility] Encounter Notes: All associated encounter notes This section contains the clinical notes associated to the Encounter. Date/Time Encounter Note(s) Provider Source Jul 01, 2023 11:18 AM MENTAL HEALTH NOTE: LOCAL TITLE: [facility] ASSIGNMENT/REASSIGNMENT STANDARD TITLE: MENTAL HEALTH NOTE DATE OF NOTE: JUL 01, 2023@11:18 ENTRY DATE: JUL 01, 2023@11:18:55 AUTHOR: BRENDA MEDRANO EXP COSIGNER: URGENCY: STATUS: COMPLETED MHTC Initial Assignment This note documents the initial assignment of the 's Mental Health Sample Steamer (MHTC) on Jun. The [place]'s new Mental Health Sample Steamer is: MHTC Name: Brenda Medrano MHTC Contact information: Office Phone:[phone] Other contact: The assignment of the MHTC and education on the role of the MHTC in the 's mental health care was discussed with the , who verbally concurred with the new assignment. The MHTC's contact information was provided to the [place]. The [place]'s CPRS chart (i.e., PCMM) and MH Treatment Plan have been updated to reflect the new MHTC Assignment. The 's new MHTC, along with the previous MHTC if applicable, are included as additional signers on this note. /blair/ Brneda Medrano Psy.D. Psychologist Signed: 07/01/2023 11:19 Receipt Acknowledged By: 07/04/2023 09:37 /alana ESPINOSA Community Service Officer [place] [facility] Jul 01, 2023 10:32 AM MENTAL HEALTH OUTPATIENT NOTE: LOCAL TITLE: [facility]IFORM OUTPATIENT MENTAL HEALTH ASSESSMENT(T) STANDARD TITLE: MENTAL HEALTH OUTPATIENT NOTE DATE OF NOTE: JUL 01, 2023@10:32 ENTRY DATE: JUL 01, 2023@10:33:37 AUTHOR: BRENDA MEDRANO EXP COSIGNER: URGENCY: STATUS: COMPLETED INFORMED CONSENT TO PARTICIPATE IN ASSESSMENT: At beginning of session reviewed rights and limits of confidentiality, mandatory reporting situations, duty to warn and protect, [place] Warning, (if treatment team finds patient to be an acute danger to himself or others, that this information could be relayed to a court of law and presented to a bark scaler), and DOD access for active duty service members. Provided Suicide Prevention Hotline number, and other contact numbers as necessary. Uniform Outpatient Mental Health Assessment I. IDENTIFYING INFORMATION: DIANE RASCON Aug [phone] SERVICE CONNECTED % - 10 MARITAL STATUS - Referral source: Dr. Buckner Present at time of intake: [place] [X] Family member [ ] Supportive person(s) Name: II. PRESENTING SITUATION: A. What brings you into Mental Health at this time: Mando sees a psychiatrist in [place]. He is not sure that he needs to talk to someone. He is diagnosed with insomnia, anxiety, and depression. He reported that it all stems from tinnitus. He said that it drives him crazy . B. What are some of your goals for treatment: would like to identify ways to cope with ringing of ears that exacerbate mental health symptoms. C. What are some of your strengths: [place] was not sure how to answer and asked to skip question D. What are the obstacles or challenges preventing you from meeting your goals?: [place] denied any concerns. III: ASSESSMENT: A. Do you have concerns about past or current mental health symptoms or problems: Yes [X] No [ ] If yes, please describe: Mando feels that Tinnitus is the only source of mental health symptoms. He stated that when the tinnitus is acting up he gets a nervous feeling that includes a pit in his stomach. He stated that he tries to focus on other things outside the ringing. He feels this causes a depressed mood. Mando reported he sleeps on average for about three hours. He said he has trouble falling and staying asleep due to ringing that then causes his mind to race. Mando has panic attacks frequently when Tinnitus is exacerbated or when he becomes concerned that others are noticing at work. In addition, Mando does not enage in pleasurable activities due to the impact Tinnitus has on his life. How do you see these concerns impacting past and current quality of life (School, Work, Family, Housing, Finances, Social life, Legal): Mando stated that his symptoms impact them severely. He loses concentration at work and he becomes worried that people know there is something wrong with me . He also reported being irritable with family. He also feels so wiped out by the end of the day that he does not want to do anything. B. Have you previously been involved in Mental Health treatment: Yes [X] No [ ] If yes, please check all that apply and describe: [ ] Hospitalizations (when, where, etc.): [X] Medication trials (what, when, doses, etc.): Mando takes a medication for insomnia at night and a medication that he takes for anxiety/depression. He is not aware right now what these are but could provide info. He is prescribed medication by community provider. He has been on medication for about six months. [ ] Therapy trials (type, when, etc.): C. Do you have concerns about current or past substance use: Yes [ ] No [X] If yes, please identify Mando's primary and secondary substances of choice: Nicotine (Identify form of nicotine): Age of First use: 21's Frequency of use: daily Amount: two cigarettes per day Last use: 30 years ago IV: PERSONAL HISTORY/INFORMATION: A. Biological/Social History (including: relevant developmental history, family of origin, sexual/physical/emotional traumas, cultural factors, applicable sexual history): Mando was born and raised by both parents in [place]. His parents before he was born. He has one half-brother from father's relationship. He lived primarily with mother and stepfather and saw his father frequently. Mando has been for 20 plus years. He has a 12yo biological son and 25yr old stepson that he adopted when he was a little kid. B. History (including actual duties, combat/war zone duty, trauma exposure, exposure to environmental contaminants): Mando served in [employer] from 1989to 1992. 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 Mando is not sure about toxic exposure. Mando denied any traumatic exposure and reported time in was good. He wishes he stayed in longer. C. What provides you with sense of value or quality of life: Mando reported, Family and stability . D. What are some accomplishments that you feel a sense of pride about: Mando reported, Time in the service and proud of having two kids that are good boys . E. What brings you enjoyment: Mando stated, I don't do anything for fun . He shared that he does not have any hobbies. He stated that he does enjoy watching movies. This he feels is caused by current mental health symptoms. Mando feels he burned bridges with invites from friends as he said no too many times. F. Are you comfortable with your current living arrangement (Have you ever been homelessness or at risk for homelessness): [place] and own home. No concerns for homelessness. G. What are your social or community Supports, your healthy or positive relationships: is involved in [employer] and [employer] and finds comfort in this because he learned that Tinnitus is common in population. H: What is your educational history or current goals: has a bachelor's degree in communications. I. 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 J. Do you have a legal history (incarcerations, probation, parole, divorce, child custody issues): [place] denied any legal history. K. What is your level of quaker or spiritual fulfillment: identified as Orthodoxy. He stated he has not been to oriental orthodox in years but still holds these beliefs. L. Is there anybody you would like involved in the planning or delivery of your care: [place] declined M. Do you have concerns for your safety or the safety of others (domestic violence, abuse/neglect, etc.): endorsed passive SI without plan or intent. He noted this is related to poor sleep when tinnitus is exacerbated. N. Income source: full-time employments; MS for Tinnitus O. Do you have any past or current medical concerns: Yes [ ] No [ ] Active Problem HTN - Hypertension ([facility] [id number]) I 06/25/2023 DELIA BUCKNER Sleep apnea G47.30, Onset 01/09/2023OctoberSTUART Tinnitus H93.19, Onset 01/09/2023OctoberSTUART Cluster headache (SNOMED CT 3808421 06/25/2023 DELIA BUCKNER Calculus of Kidney 592.0, Onset 01/20/2010 TRAVIS LIRA Chronic sinusitis 473.9, Onset 0011/01/2006 TRAVIS LIRA Obesity (SNOMED CT 545088738) E66.9 06/25/2023 DELIA BUCKNER Other medical problems not listed above: Sleep apnea is being ruled out following recent sleep study Are you experiencing pain: Rating (0-10: 6 Comment on pain rating: related to headaches and tinnitus Are you experiencing any noted nutritional / weight problems: none How do you see these concerns impacting on past and current quality of life (School, Work, Family, Housing, Finances, Social life, Legal, etc.): tinnitus and headaches impact occupational and social functioning. Active Outpatient Medications (including Supplies): NORTRIPTYLINE HCL 25MG CAP TAKE ONE CAPSULE BY MOUTH AT ACTIVE BEDTIME HEADACHE SUMATRIPTAN SUCCINATE 100MG TAB TAKE ONE TABLET BY MOUTH ACTIVE DIRECTED FOR MIGRAINE HEADACHE AT ONSET OF HEADACHE; MAY REPEAT IN 2 HOURS IF FIRST DOSE IS NOT EFFECTIVE Non-VA OTHER CAP/TAB ANTI DEPRESSANT BY MOUTH ACTIVE V: MENTAL STATUS / SUBJECTIVE COMPLAINTS: (check all that apply): Appearance: [ ] Unremarkable [X] Appropriate to season [X] Neatly groomed [ ] Somewhat disheveled [ ] Other: Behavior: [ ] Appropriate [ ] Irritable [X] Pleasant [ ] Provocative [ ] Anxious [ ] Frustrated [ ] Maintained good eye contact [ ] Other: Mood/Affect: [X] Normal [ ] Euphoric [ ] Bright [ ] Depressed [ ] Anxious [ ] Frustrated [ ] Restricted [ ] Flat [ ] Subdued [ ] Unremarkable [ ] Responsive & Congruent w/mood [ ] Other: Energy: [X] Normal [ ] Excessive [ ] Lethargic [ ] Variable [ ] Other: Sleep: [ ] Normal [ ] Early awakening [X] Sleep onset insomnia [X] Frequent disruption Orientation: Oriented to person: Yes [X] No [ ] Oriented to place: Yes [X] No [ ] Oriented to time: Yes [X] No [ ] Stream of thought: [X] Normal [ ] Confused [ ] Tangential [ ] Derailed [ ] Vague [ ] Repetitive [X] No evidence of thought disorder [X] No overt psychosis [X] Denies Flashbacks [X] Denies Auditory / Visual Hallucinations [ ] Obsessions [ ] Paranoid / Delusions [ ] Hallucinations: [ ] Flashbacks: [ ] Other: Speech: [X] Normal [ ] Flat [ ] Rapid [ ] Slow [ ] Soft [ ] Loud [ ] Other: Insight / Judgment: [X] Normal [ ] Impaired: Other cognitive problems: [ ] Cognition intact [X] Logical and Linear [ ] Memory sufficient for interview [ ] None [ ] Visuospatial [ ] Attention [ ] Judgment [ ] Abstraction [ ] Other: Relevant Observations, other notes: : DSM5 DIAGNOSES: Anxiety D/O due to medical condition; Depression due to another medical condition; Tinnitus; Psychological and behavioral factors due to Tinnitus VII: SUMMARY AND IMPRESSIONS: Mr. Rascon is a 52yo , , [employer] . He has not past mental health history and primary mental health concerns have stemmed from Tinnitus. [place] endorsed symptoms of depression and anxiety related to living and managing his life with Tinnitus. He identified occupational and social impairment related to this. He is engaged in medication management in the community and feels that psychotherapy may be helpful to identify ways to cope with symptoms of depressed and anxious mood. VIII: NEXT STEPS: A: How can we work to meet your goals: Identify coping strategies through individual psychotherapy B: What would like to see happen next: Assignment to individual therapist through [facility] C: When will we know we have achieved some or all of these goals: D: Additional comments: [place] was also provided information about the Progressive Tinnitus Management program through Audiology clinic. He was encouraged to call and learn more. Sexual Orientation: The patient thinks of their sexual orientation as: Straight or Heterosexual Suicide Screen: C-SSRS Screening [place]-Suicide Severity Rating Scale (C-SSRS Screener) 1. Over the past month, have you wished you were or wished you could go to sleep and not wake up? Yes 2. Over the past month, have you had any actual thoughts of killing yourself? No 3. Over the past month, have you been thinking about how you might do this? Response not required due to responses to other questions. 4. Over the past month, have you had these thoughts and had some intention of acting on them? Response not required due to responses to other questions. 5. Over the past month, have you started to work out or worked out the details of how to kill yourself? Response not required due to responses to other questions. 6. If yes, at any time in [...] due to responses to other questions. /blair/ Brenda Medrano Psy.D. Psychologist Signed: 07/01/2023 11:18 BRENDA MEDRANO [place] [facility]
--- OUTSIDE RECORDS SUMMARY | 2024-06-04 11:15 | XMS_ITS | Encounter Summary ---
Author Name [facility] [place] Address [address] [place] [address] Care Team Providers Care Tonnage Compilation Clerk Name Role Phone DELIA CHRISTIANSEN Primary Care Provider [facility] Insurance Providers: All historical [...] Relationship to Policy Garner [facility] Apr 03, 2012 [id number] DAINE RASCON SPOUSE Selected Encounter This section includes the information on record at [place] for the Encounter. Date/Time Encounter Type Encounter Description Reason Pro vider Source Aug 08, 2023 12:12 PM Outpatient Encounter ADMIN PAT ACTIVTIES (MASNONCT) IHE Encounter Template Text not used by [place] Plan of Treatment: Future Appointments (+ 6 [...] AMBULATORY - PS[facility]CHIATRY [facility] [place] [facility] Jan 31, 2024 02:00 PM AMBULATORY [...] Jun 25, 2023 08:42 AM Reporting Lab: [facility] [place] [facility] [address] [facility] [address] Performing Lab: [facility] [place] [facility] [address] [facility] [address] FOLATE 11.13 ng/mL >5.2 Aug 27, 2023 09:19 AM [facility] [place] [facility] THYROID T4 FREE(FT4) Specimen Type: SERUM No comment entered. Ordering Provider: THERESA CHRISTIANSEN AM Report Released Date/Time: Jun 25, 2023 08:42 AM Reporting Lab: [facility] [place] [facility] [address] [facility] [address] Performing Lab: [facility] [place] [facility] [address] [facility] [address] THYROID T4 FREE(FT4) 0.90 ng/dL 0.6-1.6 Aug 27, 2023 09:19 [facility] VITAMIN D (25-OH) Specimen Type: SERUM No comment entered. Ordering Provider: THERESA CHRISTIANSEN AM Report Released Date/Time: Jun 25, 2023 08:42 AM Reporting Lab: [facility] [place] [facility] [address] [facility] [address] Performing Lab: [facility] [place] [facility] [address] [facility] [address] VITAMIN D (25-OH) 16 ng/mL L 20-50 Aug 27, 2023 09:19 AM [facility] CBC Specimen Type: BLOOD No comment entered. Ordering Provider: THERESA CHRISTIANSEN AM Report Released Date/Time: Jun 25, 2023 08:42 AM Reporting Lab: [facility] [place] [facility] [address] [facility] [address] Performing Lab: [facility] [place] [address] [address] WBC 5.18 10*3/uL 4.50-11.00 RBC 5.10 10*6/uL 4.23-5.66 HGB 14.3 g/dL 12.8-17 HCT 43.5 39.2-50.4 MCV 85.3 fL 82-99 MCHC 32.9 g/dL 30.8-35.1 PLT 179 10*3/uL 140-360 RDW-CV 12.8 12.0-16.0 MCH 28.0 pg 26.2-32.6 Aug 27, 2023 09:19 AM [facility] VITAMIN B12 Specimen Type: SERUM No comment entered. Ordering Provider: THERESA CHRISTIANSEN AM Report Released Date/Time: Jun 25, 2023 08:42 AM Reporting Lab: [address] [address] Performing Lab: [address] [address] VITAMIN B12 469 pg/mL 200-900 Aug 27, 2023 09:19 AM [facility] MAGNESIUM Specimen Type: SERUM No comment entered. Ordering Provider: THERESA CHRISTIANSEN AM Report Released Date/Time: Jun 25, 2023 08:42 AM Reporting Lab: [facility] [address] [facility] [address] Performing Lab: [address] [address] MAGNESIUM 2.0 mg/dL 1.6-2.6 Aug 27, 2023 09:19 AM [facility] HEMOGLOBIN A1C PANEL Specimen Type: BLOOD [...] Jun 25, 2023 08:42 AM Reporting Lab: [facility] [address] [facility] [address] Performing Lab: [address] [address] HEMOGLOBIN A1C 5.4 4.0-5.6 Aug 27, 2023 09:19 AM [facility] TSH Specimen Type: SERUM No comment entered. Ordering Provider: THERESA CHRISTIANSEN AM Report Released Date/Time: Jun 25, 2023 08:42 AM Reporting Lab: [address] [address] Performing Lab: [address] [address] TSH 1.38 u[IU]/mL 0.35-5.00 Aug 27, 2023 09:19 AM [facility] PSA Specimen Type: SERUM No comment entered. Ordering Provider: THERESA CHRISTIANSEN AM Report Released Date/Time: Jun 25, 2023 08:42 AM Reporting Lab: [address] [address] Performing Lab: [address] [address] PSA 1.35 ng/mL 0.00-4.00 Aug 27, 2023 09:19 AM [facility] BASIC METABOLIC PANEL (fasting) Specimen Type: SERUM No comment entered. Ordering Provider: THERESA CHRISTIANSEN AM Report Released Date/Time: Jun 25, 2023 08:42 AM Reporting Lab: [address] [address] Performing Lab: [address] [address] UREA NITROGEN 15 mg/dL 7-25 GLUCOSE 95 mg/dL 65-100 SODIUM 142 mmol/L 135-145 POTASSIUM 4.3 mmol/L 3.5-5.0 CHLORIDE 107 mmol/L 100-110 CO2 25 meq/L 20-30 CREATININE, Serum 0.68 mg/dL 0.50-1.40 eGFR(CKD-EPI 2020) >90 mL/min >60 Aug 27, 2023 09:19 AM [facility] LIVER FUNCTION Specimen Type: SERUM No comment entered. Ordering Provider: THERESA CHRISTIANSEN AM Report Released Date/Time: Jun 25, 2023 08:42 AM Reporting Lab: [facility] [address] [facility] [address] Performing Lab: [facility] [address] [facility] [address] PROTEIN,TOTAL 6.2 g/dL 6.0-8.3 ALBUMIN 3.6 g/dL 3.5-5.0 ALKALINE PHOSPHATASE 75 U/L 40-150 AST 10 U/L 5-34 ALT 15 U/L BILIRUBIN, TOTAL 0.9 mg/dL 0.2-1.2 Aug 27, 2023 09:19 AM [facility] LIPID PANEL FASTING Specimen Type: SERUM No comment entered. Ordering Provider: THERESA CHRISTIANSEN AM Report Released Date/Time: Jun 25, 2023 08:42 AM Reporting Lab: [address] [address] Performing Lab: [address] [address] CHOLESTEROL 183 mg/dL TRIGLYCERIDE 112 mg/dL 0-150 [...] took place. Date/Time Current Smoking Status Comment [facility] Jan 09, 2023 05:09 PM VA-TOBACCO FORMER USER [facility] Tobacco Use History This section includes a history of the smoking, or tobacco-related health factors, that were collected on or before the date of the Encounter. The data comes from the [place] facility where the Encounter took place. Date/Time Smoking Status/Tobac co Use Comment Facility Jan 09, 2023 05:09 PM VA-TOBACCO QUIT 15 YRS OR MORE [facility] Jan 04, 2017 07:42 AM LIFETIME NON-TOBACCO USER [facility] Dec 26, 2015 09:20 AM QUIT TOBACCO USE > 7 YEARS AGO quit in 1997 [facility] October 27, 2003 03:29 PM HISTORY OF SMOKING Smoke free 6 years [facility] Jan 02, 2002 08:56 AM HISTORY OF SMOKING [facility] Jan 02, 2002 08:56 AM QUIT TOBACCO USE > 7 YEARS AGO [facility] Jan 14, 2001 11:25 AM HISTORY OF SMOKING non smoker 4 years [facility] Encounter Notes: All associated encounter notes This section contains the clinical notes associated to the Encounter. Date/Time Encounter Note(s) Provider Source Aug 08, 2023 12:12 PM NUTRITION NOTE: LOCAL TITLE: LOW INTENSITY/LOW ACUITY TECH EDUCATION NOTE STANDARD TITLE: NUTRITION NOTE DATE OF NOTE: AUG 08, 2023@12:12 ENTRY DATE: AUG 08, 2023@12:12:47 AUTHOR: RUTH BLANCHARD EXP COSIGNER: URGENCY: STATUS: COMPLETED LOW INTENSITY/LOW ACUITY TECH EDUCATION NOTE Has ADDENDA Type of Telephone Encounter: This telehealth orthotic and prosthetic technician called today Problem/Issue Reported: recently enrolled in HT/L2 program but has not yet transmitted initial health check, 20 days Intervention: Called , who stated that he has not sent in any recent transmissions because he is busy. Educated that 3x weekly participation is required in order to remain on the HT/L2 program. Vet acknowledged understanding and stated he will open his welcome packet tonight and begin participation. [place] will call this internal communications writer directly with any difficulties in setting up. Follow-up: [employer] will send the a NonResponder letter. client support coordinator will monitor for Home TeleMOVE! responses. Length of call: 2 min /blair/ RUTH BLANCHARD Signed: 08/08/2023 12:14 08/16/2023 ADDENDUM STATUS: COMPLETED Called and spoke with pt. He will set up program right now. If he has any questions pt is to call [facility]. He has his number. /blair/ MENDOZA ROSALES RD,LDN STAFF DIETITIAN Signed: 08/16/2023 14:03 RUTH BLANCHARD [facility]
--- OUTSIDE RECORDS SUMMARY | 2024-06-04 11:15 | XMS_ITS | Encounter Summary ---
Author Name [place] Address [address] [place] [id number] Care Team Providers Care Preventive Medicine Physician Name Role Phone VICTORINO BUCKNER Primary [facility] [place] [facility] Insurance Providers: All historical and current Section Date Range: From patient's date of to the date document was created. This section includes the names of all active insurance providers for the patient. Insurance Provider Type of Coverage Plan Name Start of Policy Coverage End of Policy Coverage Group Number Member ID Insurance Provider's Telephone Number Policy Garner's Name Patient's Relationship to Policy Garnre [facility] Apr 03, 2012 [id number] DIANE RASCON SPOUSE Selected Encounter This section includes the information on record at [place] for the Encounter. Date/Time Encounter Type Encounter Description Reason Provider Source Jul 09, 2023 01:30 PM MTMS BY PHARM ADDL 15 MIN CLINICAL PHARMACY ICD-10-CM E66.9 Obesity, unspecified GDULA,JANETH A IHE Encounter Template Text not used by [place] Assessments - Encounter Diagnoses This section includes the primary and secondary diagnoses documented for the Encounter. Date/Time Primary/Secondary Diagnosis Diagnosis Name Provider Source Jul 10, 2023 12:10 PM PRIMARY Obesity, unspecified GDULA,JANETH A [facility] Plan of Treatment: Future Appointments (+ 6 months) and Future Tests (+/- 45 days) The Plan of Treatment section includes future care activities for the [facility] This section includes future appointments and future orders which are active, pending or scheduled. Future Appointments This section includes appointments that were scheduled to occur 6 months from the date of the Encounter, up to a maximum of 20 appointments. The data comes from all [place] treatment facilities. Appointment Date/Time Appointment Type Appointme nt Facility Name Jul 30, 2023 01:30 PM AMBULATORY - NONE [facility] [place] [facility] Aug 22, 2023 09:30 AM AMBULATORY - NONE [facility] [place] [facility] Aug 22, 2023 09:30 AM AMBULATORY - [place] [facility] Aug 22, 2023 02:00 PM AMBULATORY - PSYCHIATRY [facility] [place] [facility] Sep 06, 2023 02:00 PM AMBULATORY - PSYCHIATRY [facility] [place] [facility] Sep 19, 2023 01:00 PM AMBULATORY - PSYCHIATRY [facility] [place] [facility] October 04, 2023 02:00 PM AMBULATORY - PSYCHIATRY [facility] [place] [facility] October 18, 2023 02:00 PM AMBULATORY - PSYCHIATRY [facility] [place] [facility] October 30, 2023 03:30 PM AMBULATORY - NONE [facility] [place] [facility] October 30, 2023 03:30 PM AM[place]ULATORY - [place] [facility] November 01, 2023 02:00 PM AMBULATORY - PSYCHIATRY [facility] [place] [facility] Nov 15, 2023 02:00 PM AMBULATORY - PSYCHIATRY [facility] [place] [facility] Nov 28, 2023 02:00 PM AMBULATORY - PSYCHIATRY [facility] [place] [facility] Dec 02, 2023 03:30 PM AMBULATORY - [place]ICINE [place] [facility] [place] [facility] Dec 20, 2023 02:00 PM AMBULATORY - [place]IATRY [place] [facility] [place] [facility] Social History: Smoking Status (Most [...] place. Date/Time Current Smoking Status Comment [facility] it Jan 09, 2023 05:09 PM VA-TOBACCO FORMER USER [facility] Tobacco Use History This section includes a history of the smoking, or tobacco-related health factors, that were collected on or before the date of the Encounter. The data comes from the [place] facility where the Encounter took place. Date/Time Smoking Status/Tobac co Use Comment Facility Jan 09, 2023 05:09 PM VA-TOBACCO QUIT 15 YRS OR MORE [facility] Jan 04, 2017 07:42 AM LIFETIME NON-TOBACCO USER [facility] Dec 26, 2015 09:20 AM QUIT TOBACCO USE > 7 YEARS AGO quit in 1997 [facility] October 27, 2003 03:29 PM HISTORY OF SMOKING Smoke free 6 years [facility] Jan 02, 2002 08:56 AM HISTORY OF SMOKING [facility] Jan 02, 2002 08:56 AM QUIT TOBACCO USE > 7 YEARS AGO [facility] Jan 14, 2001 11:25 AM HISTORY OF SMOKING non smoker 4 years [facility] Encounter Notes: All associated encounter notes This section contains the clinical notes associated to the Encounter. Date/Time Encounter Note(s) Provider Source Jul 10, 2023 12:10 PM ADDENDUM: LOCAL TITLE: Addendum STANDARD TITLE: ADDENDUM DATE OF NOTE: JUL 10, 2023@12:10:53 ENTRY DATE: JUL 10, 2023@12:10:55 AUTHOR: JANETH ROBINS EXP COSIGNER: URGENCY: STATUS: COMPLETED Will ask AMSA to please schedule patient for: [x ] CWM/NO/VVC/PHARM PACT 3 RTC order placed. Appointment Length: __30_ minutes. RTC: 07/30/23@4044 Thank you! /alana ROBINS PHARMD,BCPS CLINICAL PHARMACY PRACTITIONER Signed: 07/10/2023 12:11 Receipt Acknowledged By: 07/10/2023 12:49 /es/ MEGAN W. NEYMAR, BS ADVANCED PAYROLL AUDITOR --- Original Document --- 07/09/23 CONSULT REPORT/PHARMACY: V Introduction: Visit is being conducted by [place] [facility]. [place] identified with 2 identifiers: [X] Full Name [X] Date of [ ] VA ID Card Emergency Plan: confirmed and/or provided the following information in case of emergency or technology failure. PATIENT PHONE - PHONE NUMBER [CELLULAR] - DIANE Patel TARAH [address], [place], [address] [place]'s present location and address for appointment: [place]'s emergency contact name and phone number: Patient Phone Numbers: Cell: No data available Home: Work: No data available Emergency Contact: Name: ELIO MARTINEZ Relationship: MOTHER Secondary Emergency Contact: Name: No data available Relationship: No data available Phone: No data available Secondary Next of Kin Contact Name: No data available Relationship: No data available Phone: No data available [place] reported that location is private and safe: Yes Informed Consent: [place] informed of the risks and benefits of Telehealth video care. [place] has the right to refuse video services. If refuses video visit, a cwia-dc-mefh visit will be scheduled. verbalized consent for this video visit: Yes [place] provided consent for any other persons present for visit: N/A If yes, who and relationship to patient: Secure visit: Visit was locked for security and privacy:Yes Patient referred by Victorino Buckner for consideration of weight management medications. Today, pt reports he is doing ok. He reports not trying to many avenues in regards to weightloss. He notes he has never gotten into fad diets or anything like that. He is not active, does not go to gym. 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 Pt is interested in weightloss medications to help with overall health. He thinks his weight problem has a lot to do with MH dx. Pt has tried eating less to lose weight, not as sucessful as he would hope. Pt notes outside of current med list he takes something for insomnia and anxiety daily from a non-VA provider. He will report medication during our next session. Pt denies tobacco use. He notes he could go 3-4 months without drinking. He states he has a dx of sleep apnea just has not received the machine yet. Pt denies hx of gallstones, personal or fm hx of thyroid cancer or MENS2, denies gastroparesis, hx of pancreatitis, past or present attemmpts of SI. BMI: BMI: 51.9 Most recent BP: 146/97 (03/13/2023 14:51) PMH: Code Description I10. HTN - Hypertension ([facility] [id number]) G47.30 Sleep apnea ([facility] [id number]) H93.19 Tinnitus ([facility] [id number]) G44.001 Cluster headache ([facility] [id number]) 592.0 Calculus of Kidney (ICD-9-CM 592.0) 473.9 Chronic sinusitis (ICD-9-CM 473.9) E66.9 Obesity ([facility] [id number]) ALLERGIES/ADRs: Patient has answered NKA Reviewed chart [...] eligible for weight loss medication management at [facility]: [ ] Verifiable participation in a [...] - would not provide enough weightloss effects Drug Interactions: - 3. Liraglutide (Saxenda): Exclusion criteria: [ ] [...] inadequate response, contraindication or intolerance to all [place] National Formulary agents for chronic weight management (e.g., phentermine/topiramate; naltrexone/bupropion; orlistat) [ ] Patient meets diagnostic criteria for prediabetes [ ] Patient has type 2 diabetes AND is unable to use semaglutide (OZEMPIC) as per the Criteria for Use for management of diabetes Additional consideration: - Drug Interactions: - to review when med list is complete 4. Semaglutide (Wegovy) Exclusion criteria: [ ] [...] contraindication or intolerance to at least two [place] National Formulary agents for chronic weight management [...] to 5% reduction in initial body weight Additional considerations: - Drug Interactions: - to review when med list is complete SUMMARY OF RECOMMENDATIONS: - Pt agreed to join MOVE! program. Given BMI and no contrainidications, pt would be most likely to be successful with GLP1a. Unfortunately at this time there are no new starts with either medication on formulary. Will continue to f/u with procurement. - Will review non-VA medications with pt when he presents for next [facility] visit - Encouraged exericse and healthy eating Time spent: 23 mins RTC: 07/30/23@1330 PBM PharmD Pharmacotherapy Rem V12: PHARMACIST INTERVENTIONS: OBESITY/WEIGHT MANAGEMENT Medication monitoring, no dosage change required, continue to monitor and assess /blair/ JANETH ROBINS PHARMD,[facility] CLINICAL PHARMACY PRACTITIONER Signed: 07/10/2023 12:10 JANETH ROBINS [place] [facility] [place] [facility] Jul 09, 2023 01:25 PM PHARMACY CONSULT: LOCAL TITLE: CONSULT REPORT/PHARMACY STANDARD TITLE: PHARMACY CONSULT DATE OF NOTE: JUL 09, 2023@13:25 ENTRY DATE: JUL 09, 2023@13:26:06 AUTHOR: JANETH ROBINS COSIGNER: URGENCY: STATUS: COMPLETED CONSULT REPORT/PHARMACY Has ADDENDA V Introduction: Visit is being conducted by [place] [facility]. identified with 2 identifiers: [X] Full Name [X] Date of [ ] VA ID Card Emergency Plan: confirmed and/or provided the following information in case of emergency or technology failure. PATIENT PHONE - PHONE NUMBER [CELLULAR] - DIANE RASCON [address], [place], [address] 's present location and address for appointment: [place]'s emergency contact name and phone number: Patient Phone Numbers: Cell: No data available Home: Work: No data available Emergency Contact: Name: ELIO AMRTINEZ Relationship: MOTHER Secondary Emergency Contact: Name: No data available Relationship: No data available Phone: No data available Secondary Next of Kin Contact Name: No data available Relationship: No data available Phone: No data available [place] reported that location is private and safe: Yes Informed Consent: informed of the risks and benefits of Telehealth video care. has the right to refuse video services. If refuses video visit, a boor-ao-lisl visit will be scheduled. [place] verbalized consent for this video visit: Yes [place] provided consent for any other persons present for visit: N/A If yes, who and relationship to patient: Secure visit: Visit was locked for security and privacy:Yes Patient referred by Victorino Buckner for consideration of weight management medications. Today, pt reports he is doing ok. He reports not trying to many avenues in regards to weightloss. He notes he has never gotten into fad diets or anything like that. He is not active, does not go to gym. 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 Pt is interested in weightloss medications to help with overall health. He thinks his weight problem has a lot to do with dx. Pt has tried eating less to lose weight, not as sucessful as he would hope. Pt notes outside of current med list he takes something for insomnia and anxiety daily from a non-VA provider. He will report medication during our next session. Pt denies tobacco use. He notes he could go 3-4 months without drinking. He states he has a dx of sleep apnea just has not received the machine yet. Pt denies hx of gallstones, personal or fm hx of thyroid cancer or MENS2, denies gastroparesis, hx of pancreatitis, past or present attemmpts of SI. BMI: BMI: 51.9 Most recent BP: 146/97 (03/13/2023 14:51) PMH: Code Description I10. HTN - Hypertension ([facility] [id number]) G47.30 Sleep apnea ([facility] [id number]) H93.19 Tinnitus ([facility] [id number]) G44.001 Cluster headache ([facility] [id number]) 592.0 Calculus of Kidney (ICD-9-CM 592.0) 473.9 Chronic sinusitis (ICD-9-CM 473.9) E66.9 Obesity ([facility] [id number]) ALLERGIES/ADRs: Patient has answered NKA Reviewed chart [...] eligible for weight loss medication management at [facility]: [ ] Verifiable participation in a [...] - would not provide enough weightloss effects Drug Interactions: - 3. Liraglutide (Saxenda): Exclusion criteria: [ ] [...] inadequate response, contraindication or intolerance to all [place] [employer] Formulary agents for chronic weight management (e.g., phentermine/topiramate; naltrexone/bupropion; orlistat) [ ] Patient meets diagnostic criteria for prediabetes [ ] Patient has type 2 diabetes AND is unable to use semaglutide (OZEMPIC) as per the Criteria for Use for management of diabetes Additional consideration: - Drug Interactions: - to review when med list is complete 4. Semaglutide (Wegovy) Exclusion criteria: [ ] [...] contraindication or intolerance to at least two [place] National Formulary agents for chronic weight management [...] to 5% reduction in initial body weight Additional considerations: - Drug Interactions: - to review when med list is complete SUMMARY OF RECOMMENDATIONS: - Pt agreed to join MOVE! program. Given BMI and no contrainidications, pt would be most likely to be successful with GLP1a. Unfortunately at this time there are no new starts with either medication on formulary. Will continue to f/u with procurement. - Will review non-VA medications with pt when he presents for next [facility] visit - Encouraged exericse and healthy eating Time spent: 23 mins RTC: 07/30/23@1330 PBM PharmD Pharmacotherapy Rem V12: PHARMACIST INTERVENTIONS: OBESITY/WEIGHT MANAGEMENT Medication monitoring, no dosage change required, continue to monitor and assess /alana ROBINS PHARMD,[facility] CLINICAL PHARMACY PRACTITIONER Signed: 07/10/2023 12:10 07/10/2023 ADDENDUM STATUS: COMPLETED Will ask AMSA to please schedule patient for: [x ] CWM/NO/VVC/PHARM PACT 3 RTC order placed. Appointment Length: __30_ minutes. RTC: 07/30/23@1330 Thank you! /alana ROBINS PHARMD,[facility] CLINICAL PHARMACY PRACTITIONER Signed: 07/10/2023 12:11 Receipt Acknowledged By: * AWAITING SIGNATURE * MEGAN BLACKMON,JANETH ORELLANA [facility]
--- OUTSIDE RECORDS SUMMARY | 2024-06-04 11:15 | XMS_ITS | Encounter Summary ---
Author Name [facility] [facility] [place] Address [address] [place] [address] Care Team Providers Care Tunnel Elastic Operator Lockstitch Name Role Phone DELIA CHRISTIANSEN Primary Care Provider Unavaila [facility] Insurance Providers: All historical and current Section [...] Patient's Relationship to Policy Garner [facility] Apr 03, 2012 [id number] DIANE RASCON SPOUSE Selected Encounter This section includes the information on record at [place] for the Encounter. Date/Time Encounter Type Encounter Description Reason Pro vider Source Aug 30, 2023 11:04 AM Outpatient Encounter ADMIN PAT ACTIVTIES (MASNONCT) [...] 03:30 PM AMBULATORY - NEUROLOGY [facility] November 01, 2023 02:00 PM [...] AMBULATORY - NEUROLOGY [facility] [place] [facility] Feb 28, 2024 02:00 PM AMBULATORY - PSYCHIATRY [facility] [place] [facility] Lab Results: +/- 30 days of the encounter This section includes the Chemistry and Hematology Lab Results on record with [place] for the patient. Radiology Reports and Pathology Reports are provided separately, in subsequent sections. Lab Results This section contains the Chemistry/Hematology Results that were resulted 30 days before or 30 daysafter the date of the Encounter. Date/Time Source Result Type Result - Unit Interpretation Reference Range Comment Aug 27, 2023 09:19 AM [facility] [place] [facility] THYROID T4 FREE(FT4) Specimen Type: SERUM No comment entered. Ordering Provider: THERESA CHRISTIANSEN AM Report Released Date/Time: Jun 25, 2023 08:42 AM Reporting Lab: [facility] [place] [facility] [address] [facility] [address] Performing Lab: [facility] [place] [facility] [address] [facility] [address] THYROID T4 FREE(FT4) 0.90 ng/dL 0.6-1.6 Aug 27, 2023 09:19 AM [facility] FOLATE Specimen Type: SERUM No comment entered. Ordering Provider: THERESA CHRISTIANSEN AM Report Released Date/Time: Jun 25, 2023 08:42 AM Reporting Lab: [facility] [address] [facility] [address] Performing Lab: [facility] [place] [facility] [address] [facility] [address] FOLATE 11.13 ng/mL >5.2 Aug 27, 2023 09:19 AM [facility] VITAMIN B12 Specimen Type: SERUM No comment entered. Ordering Provider: THERESA CHRISTIANSEN AM Report Released Date/Time: Jun 25, 2023 08:42 AM Reporting Lab: [facility] [place] [facility] [address] [facility] [address] Performing Lab: [facility] [place] [facility] [address] [facility] [address] VITAMIN B12 469 pg/mL 200-900 Aug 27, 2023 09:19 AM [facility] VITAMIN D (25-OH) Specimen Type: SERUM No comment entered. Ordering Provider: THERESA CHRISTIANSEN AM Report Released Date/Time: Jun 25, 2023 08:42 AM Reporting Lab: [facility] [place] [facility] [address] [facility] [address] Performing Lab: [facility] [place] [facility] [address] [facility] [address] VITAMIN D (25-OH) 16 ng/mL L 20-50 Aug 27, 2023 09:19 AM [facility] CBC Specimen Type: BLOOD No comment entered. Ordering Provider: THERESA CHRISTIANSEN AM Report Released Date/Time: Jun 25, 2023 08:42 AM Reporting Lab: [facility] [address] [facility] [address] Performing Lab: [facility] [address] [facility] [address] WBC 5.18 10*3/uL 4.50-11.00 RBC 5.10 10*6/uL 4.23-5.66 HGB 14.3 g/dL 12.8-17 HCT 43.5 39.2-50.4 MCV 85.3 fL 82-99 MCHC 32.9 g/dL 30.8-35.1 PLT 179 10*3/uL 140-360 RDW-CV 12.8 12.0-16.0 MCH 28.0 pg 26.2-32.6 Aug 27, 2023 09:19 AM [facility] MAGNESIUM Specimen Type: SERUM No comment entered. Ordering Provider: THERESA CHRISTIANSEN AM Report Released Date/Time: Jun 25, 2023 08:42 AM Reporting Lab: [facility] [address] [facility] [address] Performing Lab: [address] [address] MAGNESIUM 2.0 mg/dL 1.6-2.6 Aug 27, 2023 09:19 AM [facility] HEMOGLOBIN A1C PANEL Specimen Type: BLOOD [...] Jun 25, 2023 08:42 AM Reporting Lab: [facility] [address] [facility] [address] Performing Lab: [address] [address] HEMOGLOBIN A1C 5.4 4.0-5.6 Aug 27, 2023 09:19 AM [facility] TSH Specimen Type: SERUM No comment entered. Ordering Provider: THERESA CHRISTIANSEN AM Report Released Date/Time: Jun 25, 2023 08:42 AM Reporting Lab: [facility] [address] [facility] [address] Performing Lab: [facility] [address] [facility] [address] TSH 1.38 u[IU]/mL 0.35-5.00 Aug 27, 2023 09:19 AM [facility] PSA Specimen Type: SERUM No comment entered. Ordering Provider: THERESA CHRISTIANSEN AM Report Released Date/Time: Jun 25, 2023 08:42 AM Reporting Lab: [facility] [address] [facility] [address] Performing Lab: [address] [address] PSA 1.35 ng/mL 0.00-4.00 Aug 27, 2023 09:19 AM [facility] LIVER FUNCTION Specimen Type: SERUM No comment entered. Ordering Provider: THERESA CHRISTIANSEN AM Report Released Date/Time: Jun 25, 2023 08:42 AM Reporting Lab: [facility] [address] [facility] [address] Performing Lab: [address] [address] PROTEIN,TOTAL 6.2 g/dL 6.0-8.3 ALBUMIN 3.6 g/dL 3.5-5.0 ALKALINE PHOSPHATASE 75 U/L 40-150 AST 10 U/L 5-34 ALT 15 U/L BILIRUBIN, TOTAL 0.9 mg/dL 0.2-1.2 Aug 27, 2023 09:19 AM [facility] LIPID PANEL FASTING Specimen Type: SERUM No comment entered. Ordering Provider: THERESA CHRISTIANSEN AM Report Released Date/Time: Jun 25, 2023 08:42 AM Reporting Lab: [address] [address] Performing Lab: [facility] [address] [facility] [address] CHOLESTEROL 183 mg/dL TRIGLYCERIDE 112 mg/dL 0-150 LDL calculated 120 mg/dL 0-129 CHOL/HDL 4.5 HDL CHOLESTEROL 41 mg/dL 40-60 Aug 27, 2023 09:19 AM [facility] BASIC METABOLIC PANEL (fasting) Specimen Type: SERUM No comment entered. Ordering Provider: THERESA CHRISTIANSEN AM Report Released Date/Time: Jun 25, 2023 08:42 AM Reporting Lab: [facility] [address] [facility] [address] Performing Lab: [facility] [address] [facility] [address] UREA NITROGEN 15 mg/dL 7-25 GLUCOSE 95 [...] took place. Date/Time Current Smoking Status Comment Located Within [facility] it Jan 09, 2023 05:09 PM ME-TOBACCO QUIT 15 YRS OR MORE [facility] Tobacco Use History This section includes a history of the smoking, or tobacco-related health factors, that were collected on or before the date of the Encounter. The data comes from the [place] facility where the Encounter took place. Date/Time Smoking Status/Tobac co Use Comment Facility Jan 09, 2023 05:09 PM ME-TOBACCO QUIT 15 YRS OR MORE [facility] Jan 04, 2017 07:42 AM LIFETIME NON-TOBACCO USER [facility] Dec 26, 2015 09:20 AM QUIT TOBACCO USE > 7 YEARS AGO quit in 1997 [facility] October 27, 2003 03:29 PM HISTORY OF SMOKING Smoke free 6 years [facility] Jan 02, 2002 08:56 AM HISTORY OF SMOKING [facility] Jan 02, 2002 08:56 AM QUIT TOBACCO USE > 7 YEARS AGO [facility] Jan 14, 2001 11:25 AM HISTORY OF SMOKING non smoker 4 years [facility] Encounter Notes: All associated encounter notes This section contains the clinical notes associated to the Encounter. 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 Left final vm this morning to contact this freelance copywriter by EOB today. Intervention: Called . No answer, left vm. Follow-up: [employer] will send the a NonResponder letter. client coordinator will monitor for [employer] responses. Length of call: 1 min /blair/ RUTH BLANCHARD Signed: 08/30/2023 11:06 RUTH BLANCHARD [facility]
--- OUTSIDE RECORDS SUMMARY | 2024-06-04 11:15 | XMS_ITS | Encounter Summary ---
Author Name [facility] [place] [facility] [place] Address [address] [place] [address] Care Team Providers Care Stunner And Shackler Name Role Phone DELIA CHRISTIANSEN Primary Care Provider Unavaila [facility] Insurance Providers: All historical and current [...] Garner's Name Patient's Relationship to Policy Garner [facility] Apr 03, 2012 [id number] DIANE RASCON SPOUSE Selected Encounter This section includes the information on record at [place] for the Encounter. Date/Time Encounter Type Encounter Description Reason Pro vider Source Jun 13, 2023 03:16 PM Outpatient Encounter ADMIN PAT ACTIVTIES (MASNONCT) IHE Encounter Template Text not used by [place] Plan of Treatment: Future Appointments (+ 6 [...] 20 appointments. The data comes from all [place] treatment facilities. Appointment Date/Time Appointment Type Appointme nt Facility Name Jun 25, 2023 08:30 AM AMBULATORY - MEDICINE [facility] [place] [facility] Jul 01, 2023 10:30 AM AMBULATORY - PSYCHIATRY [facility] [place] [facility] Jul 09, 2023 01:30 PM AMBULATORY - NONE [facility] [place] [facility] Jul 30, 2023 01:30 PM AMBULATORY - NONE [facility] [place] [facility] Aug 22, 2023 09:30 AM AMBULATORY - NONE [facility] [place] [facility] Aug 22, 2023 09:30 AM AMBULATORY - [place] [facility] Aug 22, 2023 02:00 PM AMBULATORY - PSYCHIATRY [facility] [place] [facility] Sep 06, 2023 02:00 PM AMBULATORY - PSYCHIATRY [facility] [place] [facility] Sep 19, 2023 01:00 PM AMBULATORY - PSYCHIATRY [facility] [place] [facility] October 04, 2023 02:00 PM AMBULATORY - PSYCHIATRY [facility] [place] [facility] October 18, 2023 02:00 PM AMBULATORY - PSYCHIATRY [facility] [place] [facility] October 30, 2023 03:30 PM AMBULATORY - NONE [facility] [place] [facility] October 30, 2023 03:30 PM AMBULATORY - [place]OLOG[place] [facility] November 01, 2023 02:00 PM AMBULATORY - PSYCHIATRY [facility] [place] [facility] Nov 15, 2023 02:00 PM AMBULATORY - PSYCHIATRY [facility] [place] [facility] Nov 28, 2023 02:00 PM AMBULATORY - PSYCHIATRY [facility] [place] [facility] Dec 02, 2023 03:30 PM AMBULATORY - MEDICINE [facility] [place] [facility] Social History: Smoking Status (Most [...] the Encounter. The data comes from the [place] facility where the Encounter took place. Date/Time [...] Encounter. Date/Time Encounter Note(s) Provider Source Jun 13, 2023 03:16 PM ADMINISTRATIVE NOTE: LOCAL TITLE: CCC: SCHEDULING ADMINISTRATION STANDARD TITLE: ADMINISTRATIVE NOTE DATE OF NOTE: JUN 13, 2023@15:16:36 ENTRY DATE: JUN 13, 2023@15:16:36 AUTHOR: SANTI CHING EXP COSIGNER: URGENCY: STATUS: COMPLETED CCC: SCHEDULING ADMINISTRATION Has ADDENDA Patient Demographics Patient Name: DIANE RASCON Patient Primary Phone: [phone] Patient Primary Address: [address] [place] [address] Patient : 1970 Patient Age: 52 Call Back Number: [phone] Caller/Recipient Relation to Patient: Self Scheduling Open Request: RTC (Return to Clinic Order) Scheduling Note Comments: CALLED STATING HE HAD A VVC APPOINTMENT WITH PROVIDER. THE APPOINTMENT WAS ACTUALLY A F2F. HE WOULD LIKE TO CHANGE APPOINTMENT TO A VVC OR PHONE. HIS CONTACT NUMBER IS [phone]. Administrative Administrative Note Reason: Other Administrative Note Comments: PCP /es/ SANTI CHING VISN1 CCC MSA Signed: 06/13/2023 15:16 Receipt Acknowledged By: 06/13/2023 15:43 /blair/ TOYA ACUÑA ADVANCED CYBER OPS PLANNER for MEGAN BLACKMON 06/13/2023 15:31 /blair/ Loren Sanchez MSN RN CNL Primary Care RN for JOSESITO KHANTON 06/13/2023 ADDENDUM STATUS: COMPLETED AMSA will contact to R/S for VVC /es/ Loren Sanchez MSN RN CNL Primary Care RN Signed: 06/13/2023 15:32 [facility]ANTI CHING [facility]
--- OUTSIDE RECORDS SUMMARY | 2024-06-04 11:15 | XMS_ITS | Encounter Summary ---
Author Name [facility] [place] Address [address] [place] [address] Care Team Providers Care Supervisor Paint Roller Covers Name Role Phone DELIA CHRISTIANSEN Primary Care Provider Unavaila [facility] Insurance Providers: All historical and current [...] Garner [facility] Apr 03, 2012 [id number] DIANE RASCON SPOUSE Selected Encounter This section includes the information on record at [place] for the Encounter. Date/Time Encounter Type Encounter Description Reason Pro vider Source Mar 31, 2024 02:30 PM Outpatient Encounter ADMIN PAT ACTIVTIES (MASNONCT) IHE Encounter Template Text not used by [place] Plan of Treatment: Future Appointments (+ 6 [...] 01, 2024 08:30 AM AMBULATORY - PS[place]CHIATRY [place] [facility] [place] [facility] Apr 24, 2024 02:00 PM AMBULATORY - PS[place]CHIATRY [place] [facility] [place] [facility] May 04, 2024 03:00 PM AMBULATORY - PS[place]CHIATRY [place] [facility] [place] [facility] May 15, 2024 02:00 PM AMBULATORY - PS[place]IATRY [place] [facility] [place] [facility] May 25, 2024 03:00 PM AMBULATORY - PS[place]CHIATRY [place] [facility] [place] [facility] Jun 12, 2024 02:00 PM AMBULATORY - PS[place]CHIATRY [facility] [facility] [place] [facility] Jun 23, 2024 03:30 PM AMBULATORY - PS[place]CHIATRY [place] [facility] [place] [facility] Jul 07, 2024 01:30 PM AMBULATORY - [facility] Jul 07, 2024 01:30 PM [facility] Active, Pending, and Scheduled Orders This section includes a listing of several types of active, pending, and scheduled orders, including clinic medications orders, diagnostic test orders, procedure orders and consult orders; where the start date of the order is 45 days before the date of the Encounter or 45 days after the date of theEncounter. The data comes from all [facility]. Test Date/Time Test Type Test Details Facility Name Apr 07, 2024 10:17 AM Consult Order COMMUNITY CARE-OPTOMETRY ROUTINE EYE EXAM Cons [facility] Social History: Smoking Status (Most [...] place. Date/Time Current Smoking Status Comment Facil ity Jan 09, 2023 05:09 PM VA-TOBACCO FORMER USER [facility] Tobacco Use History This section includes a history of the smoking, or tobacco-related health factors, that were collected on or before the date of the Encounter. The data comes from the [place] facility where the Encounter took place. Date/Time Smoking Status/Tobac co Use Comment Facility Jan 09, 2023 05:09 PM VA-TOBACCO QUIT 15 YRS OR MORE [facility] Jan 04, 2017 07:42 AM LIFETIME NON-TOBACCO USER [facility] Dec 26, 2015 09:20 AM QUIT TOBACCO USE > 7 YEARS AGO quit in 1997 [facility] October 27, 2003 03:29 PM HISTORY OF SMOKING Smoke free 6 years [facility] Jan 02, 2002 08:56 AM HISTORY OF SMOKING [facility] Jan 02, 2002 08:56 AM QUIT TOBACCO USE > 7 YEARS AGO [facility] Jan 14, 2001 11:25 AM HISTORY OF SMOKING non smoker 4 years [facility] Encounter Notes: All associated encounter notes This section contains the clinical notes associated to the Encounter. Date/Time Encounter Note(s) Provider Source Mar 31, 2024 02:19 PM NEUROLOGY OUTPATIE NT NOTE: LOCAL TITLE: NEUROLOGY CLINIC NOTE STANDARD TITLE: NEUROLOGY OUTPATIENT NOTE DATE OF NOTE: MAR 31, 2024@14:19 ENTRY DATE: MAR 31, 2024@14:19:30 AUTHOR: GARRY ROCHA COSIGNER: URGENCY: STATUS: COMPLETED Tele-Headache Progress Note The consented to telehealth services. Patient address and safety in case of emergency were confirmed. Patient's phone number and Emergency Contact phone number were confurmed In Attendence:1) 2)Provider CC:Headache Last Visit: Impression: 1-Migraines, in setting of sleeep apnea, [...] changes to above needed 4-RTC 4 months Interval History: -having 3-4 headaches/month -still taking nortriptyline 25mg HS -taking sumatriptan 1-2/week -sumatriptan will reduce headache by 50% ROS: No new visual, auditory or cognitive issues, no new weakness or numbness, no chest pain, no belly pain, no shortness of breath, no melena, no heamtochezia, all others negative. PMHx/Problem List: Active problems - Computerized Problem List is the source for the followin. Exposure to potentially hazardous substance ([facility] [id number]) 2. Binge eating behaviour 3. Insomnia 4. Anxiety 5. Depression 6. HTN - Hypertension ([facility] [id number]) 7. Sleep apnea 8. Tinnitus 9. Cluster headache ([facility] CT 703990940) 10. Calculus of Kidney 11. Chronic sinusitis 12. Obesity ([facility] CT 549630315) Current Medication List: Active Outpatient Medications (including Supplies): Active Outpatient Medications Status 1) CHOLECALCIF 50MCG (D3-2,000UNIT) TAB TAKE ONE TABLET ACTIVE BY MOUTH ONCE DAILY FOR VITAMIN SUPPLEMENTATION 2) NORTRIPTYLINE HCL 25MG CAP TAKE ONE CAPSULE BY MOUTH ACTIVE AT BEDTIME HEADACHE 3) SUMATRIPTAN SUCCINATE 100MG TAB TAKE ONE TABLET BY ACTIVE MOUTH DIRECTED FOR MIGRAINE HEADACHE AT ONSET OF HEADACHE; MAY REPEAT IN 2 HOURS IF FIRST DOSE IS NOT EFFECTIVE Active Non-VA Medications Status 1) Non-VA ESCITALOPRAM OXALATE 20MG TAB 10MG BY MOUTH ACTIVE ONCE DAILY 2) Non-VA TRAZODONE HCL TAB 100 MG TO 200 MG BY MOUTH AT ACTIVE BEDTIME 5 Total Medications Medication list reconciled with patient Allergies: Patient has answered NKA Examination: Gen-NAD head-NCAT MS-alert, oriented, fluent, no overt agnosias, apraxias CN-pupils equal, gaze symmetric, non nystagmus, no ptosis Motor-normal bulk in uppers Coord-no head or hand tremor Impression: 1-Migraines, states occurring 4-8 days/month, taking sumatriptna as moderately effective abortive at 100mg dose. Overall improved markedly from baseline of 15 + migraine days/month. Patient has noticed erectile dysfunction (is on SSRI and SNRI, which I suspect are culprits) and some transient blurred vision. Discussing with psych tomorrow, is amenable to optometry appt. At this time, would prefer to continue sumatriptand and nortriptyline at present doses. Recommendations: 1-nortriptyline 25mg HS 2-sumatriptan 100mg PO at onset, repeat in 1 hr 3-secure message if changes to above needed 4-RTC 3 months (X)Neurologic condition and management, including [...] List is the source for the followin. Exposure to potentially hazardous substance ([facility] [id number]) 2. Binge eating behaviour 3. Insomnia 4. Anxiety 5. Depression 6. HTN - Hypertension ([facility] 62795787) 7. Sleep apnea 8. Tinnitus 9. Cluster headache (SNOMED CT 549172053) 10. Calculus of Kidney 11. Chronic sinusitis 12. Obesity (SNOMED CT 572573224) Active Outpatient Medications (including Supplies): Active Outpatient Medications Status 1) CHOLECALCIF 50MCG (D3-2,000UNIT) TAB TAKE ONE TABLET ACTIVE BY MOUTH ONCE DAILY FOR VITAMIN SUPPLEMENTATION 2) NORTRIPTYLINE HCL 25MG CAP TAKE ONE CAPSULE BY MOUTH ACTIVE AT BEDTIME HEADACHE 3) SUMATRIPTAN SUCCINATE 100MG TAB TAKE ONE TABLET BY ACTIVE MOUTH DIRECTED FOR MIGRAINE HEADACHE AT ONSET OF HEADACHE; MAY REPEAT IN 2 HOURS IF FIRST DOSE IS NOT EFFECTIVE Active Non-VA Medications Status 1) Non-VA ESCITALOPRAM OXALATE 20MG TAB 10MG BY MOUTH ACTIVE ONCE DAILY 2) Non-VA TRAZODONE HCL TAB 100 MG TO 200 MG BY MOUTH AT ACTIVE BEDTIME 5 Total Medications Allergies: Patient has answered NKA No Vitals Were Found /es/ Garry Rocha MD, MPH [id number] [facility] TelePain Lead Signed: 04/07/2024 10:16 GARRY ROCHA [facility]
--- OUTSIDE RECORDS SUMMARY | 2024-06-04 11:16 | XMS_ITS | Patient Health Record ---
Author Organization [facility] Address [address] [address] Care Team Providers Care Tier And Detonator Name Role Phone Luis Daniel Dawson MD Primary Care Provider Guido Garcia Unavailable [phone] Allergies Allergen (clinical drug ingredient) Drug/Non Drug Allergy documented on EMR Reaction Allergy Type Onset Date Status Penicillin Unknown Drug Allergy Active Reason For Referral No Information Medications Medication SIG (Take, Route, Frequency, Duration) Notes Start Date End Date Status Ciclopirox Olamine 0.77 % 1 application to affected area Externally to feet Twice a day for 30 days Active Ciclopirox 0.77 % 1 application to aff ected area Externally Twice a day for 365 days Active Social History Tobacco Use: Social History Observation Description Date Details (start date - stop date) Never Smoker NA - NA Tobacco Use/Smoking Question Answer Notes Are you a: nonsmoker Additional Findings: Tobacco Non-User Current no n-smoker Alcohol Screen Question Answer Notes Did you have a drink containing alcohol in the p ast year? No Points 0 Interpretation Negative Tobacco use other than smoking: Question Answer Notes Are you an other tobacco user? No Plan Of Treatment No Information Insurance Providers Payer Name Payer Address Payer Phone Subscriber Number Group Number Insured Name Patient Relationship to Insured Coverage Start Date Coverage End Date [facility] [address] [facility] [place] [phone] [id number] Wilda Stoddard Spouse - patient is the spouse of the insured Medical (General) History Medical History History ICD Code chicken pox Surgical History Surgery Date(Month/Year)
--- OUTSIDE RECORDS SUMMARY | 2024-06-04 11:16 | XMS_ITS | Encounter Summary ---
Author Name [facility] [place] Organization [facility] [place] [facility] [place] Address [address] [place] [id number] Care Team Providers Care Scoreboard Operator Name Role Phone DELIA CHRISTIANSEN [facility] Insurance Providers: All historical and [...] Garner's Name Patient's Relationship to Policy Garner [facility] Apr 03, 2012 [id number] [id number] BRUNO RASCON SPOUSE Selected Encounter This section includes the information on record at OR for the Encounter. Date/Time Encounter Type Encounter Description Reason Provider Source May 25, 2024 03:00 PM OFFICE O/P EST SF 10 MIN [facility]ENTAL [facility]INIC - IND ICD-10-CM F33.1 Major depressive disorder, recurrent, moderate SANDHYA CHIU E Encounter Template Text not used by [place] Assessments - Encounter Diagnoses This section includes the primary and secondary diagnoses documented for the Encounter. Date/Time Primary/Secondary Diagnosis Diagnosis Name Provider Source May 25, 2024 03:31 PM PRIMARY Major depressive disorder, recurrent, moderate SANDHYA CHIU [place] [facility] [place] [facility] May 25, 2024 03:31 PM SECONDARY Generalized anxiety disorder SANDHYA CHIU [facility] May 25, 2024 03:31 PM SECONDARY Primary insomnia SANDHYA CHIU [facility] Plan of Treatment: Future Appointments (+ 6 months) and Future Tests (+/- 45 days) The Plan of Treatment section includes future care activities for the patient from all [place] [facility]. This section includes future appointments and future orders which are active, pending or scheduled. Future Appointments This section includes appointments that were scheduled to occur 6 months from the date of the Encounter, up to a maximum of 20 appointments. The data comes from all [place] treatment facilities. Appointment Date/Time Appointment Type Appointme nt Facility Name Jun 12, 2024 02:00 PM AMBULATORY - PSYCHIATRY [facility] Jun 23, 2024 03:30 PM AMBULATORY - PSYCHIATRY [facility] Jul 07, 2024 01:30 PM AMBULATORY - NEUROLOGY [facility] Jul 07, 2024 01:30 PM AMBULATORY - NEUROLOGY [facility] Social History: Smoking Status (Most current) and Tobacco Use (All prior to encounter date) This section includes the most current, and the historical, smoking and tobacco- related health factors from the [place] facility where the Encounter took place. Current Smoking Status This section includes the most current smoking, or tobacco-related health factor, from the [place] facility where the Encounter took place. Date/Time Current Smoking Status Comment [facility] Apr 01, 2024 08:30 AM VA-TOBACCO FORMER USER [facility] Tobacco Use History This section includes a history of the smoking, or tobacco-related health factors, that were collected on or before the date of the Encounter. The data comes from the [place] facility where the Encounter took place. Date/Time Smoking Status/Tobac co Use Comment Facility Apr 01, 2024 08:30 AM VA-TOBACCO QUIT 15 YRS OR MORE [facility] Jan 09, 2023 05:09 PM VA-TOBACCO FORMER USER [facility] Jan 09, 2023 05:09 PM OR-TOBACCO QUIT 15 YRS OR MORE [facility] Jan 04, 2017 07:42 AM LIFETIME NON-TOBACCO USER [facility] Dec 26, 2015 09:20 AM QUIT TOBACCO USE > 7 YEARS AGO quit in 1997 [facility] October 27, 2003 03:29 PM HISTORY OF SMOKING Smoke free 6 years [facility] Jan 02, 2002 08:56 AM HISTORY OF SMOKING [facility] Jan 02, 2002 08:56 AM QUIT TOBACCO USE > 7 YEARS AGO [facility] Jan 14, 2001 11:25 AM HISTORY OF SMOKING non smoker 4 years [facility] Encounter Notes: All associated encounter notes This section contains the clinical notes associated to the Encounter. Date/Time Encounter Note(s) Provider Source May 25, 2024 03:07 PM TELEHEALTH NOTE: LOCAL TITLE: OR VIDEO CONNECT PSYCHIATRIST NOTE STANDARD TITLE: TELEHEALTH NOTE DATE OF NOTE: MAY 25, 2024@15:07 ENTRY DATE: MAY 25, 2024@15:07:36 AUTHOR: VIKTOR CHIU EXP COSIGNER: URGENCY: STATUS: COMPLETED [place] Video Connect (VVC) Standard Documentation VVC Clinician Resources Only: E911 (Emergency Call Relay Center): [phone] [place] [facility] Crisis Line - 988 then press #1. [facility] Suicide Coordinator [phone], Ext. [phone]; Back-up Ext. [phone] [place] DIVYA Richards [place] [phone] Introduction: Visit is being conducted by [place] [facility] Connect. Roy identified with 2 identifiers: [X] Full Name [X] Date of [ ] OR ID Card Emergency Plan: confirmed and/or provided the following information in case of emergency or technology failure. PATIENT PHONE - PHONE NUMBER [CELLULAR] - Is patient phone number correct, if not, enter below: 's phone number: BRUNO RASCON [address], [place], [address] 's present location and address for appointment: [address] [place] [address] Roy's emergency contact name and phone number: None given Roy reported that location is private and safe: Yes Informed Consent: informed of the risks and benefits of Telehealth video care. Roy has the right to refuse video services. If refuses video visit, a [id number] visit will be scheduled. Roy verbalized consent for this video visit: Yes provided consent for any other persons present for visit: N/A If yes, who and relationship to patient: Secure visit: Visit was locked for security and privacy:Yes RASCONBRUNO NUNEZ, a 53 year old WHITE MALE was seen by [facility] today for scheduled mental health follow-up. MENTAL HEALTH NOTE: was seen by [facility] today for 15 min for routine mental health follow up. Two forms of identification was used. DIAGNOSES AND PROBLEMS TREATED THIS VISIT: Major Depressive Disorder, Recurrent, Moderate without psychotic features, Anxiety Disorder Unspecified SUBJECTIVE: George says that he is doing better now. He ended up coming down with Covid 19 since his last appt. and wasn't feeling very well. He has been taking Paxlovid to help with his recovery from Covid 19. Bruno hasn't yet started sertraline. He continues on the lexapro 20 mg daily. He plans to reduce his lexapro and stop it the first week in June. He will then start sertraline. George mentions that he had a particularly tough day on SaturdayMay 16. He was triggered by things and he felt really down about life. He says he thought about suicide, but he says he would never act on it. He ended up laying down for the night and sleeping. The next day he felt better. George says he had a really good session in therapy the day before (May 15) and was surprised how quickly he could feel so badly. George says that his mood lately has been much better. He says he has the number to crisis if he should need that and he has good friends he could call as well if he again felt this badly. SUBSTANCE ABUSE: Caffeine: Tobacco: Cocaine: denies any Opioid: denies any Alcohol: 1-2 drinks a month. Cannabis: denies any SUICIDE RISK SCREEN 1. Are you having thoughts today about killing yourself? No 2. Do you have a plan to kill yourself? No Describe plan: 3. Do you have the means to carry out the plan? No 4. Risk level: Low (no suicide specific actions are needed) Previous medication trials: lexapro and trazodone Current meds: Active and Recently Outpatient Medications (excluding Supplies): Active Outpatient Medications Status 1) CHOLECALCIF 50MCG (D3-2,000UNIT) TAB TAKE ONE TABLET BY ACTIVE MOUTH ONCE DAILY FOR VITAMIN SUPPLEMENTATION Indication: FOR VITAMIN D DEFICIENCY 2) SERTRALINE HCL 50MG TAB TAKE ONE-HALF TABLET BY MOUTH EVERY ACTIVE MORNING FOR 3 DAYS, THEN TAKE ONE TABLET EVERY MORNING Indication: FOR DEPRESSION Inactive Outpatient Medications Status 1) NORTRIPTYLINE HCL 25MG CAP TAKE ONE CAPSULE BY MOUTH AT BEDTIME Indication: [facility] 2) SUMATRIPTAN SUCCINATE 100MG TAB TAKE ONE TABLET BY MOUTH DIRECTED AT ONSET OF HEADACHE; MAY REPEAT IN 2 HOURS IF FIRST DOSE IS NOT EFFECTIVE Indication: FOR MIGRAINE [facility] Active Non-VA Medications Status 1) Non-VA TRAZODONE HCL TAB 100 MG TO 200 MG BY MOUTH AT ACTIVE BEDTIME Indication: FOR INSOMNIA ASSOCIATED WITH DEPRESSION 5 Total Medications MEDICATION ADHERENCE: takes medications most days; hasn't yet started the sertraline. He remains on the lexapro 20 mg daily. MEDICATION SIDE EFFECTS: none OBJECTIVE:recent labs:LAB RESULTS LAST 1440 HRS - NONE FOUND Weight: 386 lb [175.09 kg] (12/02/2023 15:14) BMI: 52.5 MENTAL STATUS EXAM: Orientation and Consciousness: Alert and fully oriented. Appearance and Behavior: Middle aged white male with dark short hair dressed casually sitting down for appointment. Eye Contact: Good. Speech: Normal rate and volume. Mood/Affect: better. Affect: mildly constricted. Thought Production/Content: Logical, sequential & relevant to discussion. Perceptual Disturbances: None. Attention, concentration and memory based on answers to session questions: Good. Insight/Judgment: Both good. SI/HI: Neither elicited. Ability to Provide informed consent: Yes. ASSESSMENT:53 year old WHITE MALE, presents today for mental health follow up. TREATMENT PLAN/ DISCUSSION/ RATIONALE: 1.::: Medication management: Reviewed medications with George today. He hasn't yet made the switch from lexapro to sertraline. He had covid 19 recently and was taking paxlovid for that. He didn't want to make the change with his mental health medications at the same time since he was feeling so badly. George will again decrease the lexapro to 10 mg when he feels able and do this for a week at which point he can switch to sertraline 25 mg daily. He will take just the sertraline 25 mg daily for at least three days or so and if he feels fine he can increase to 50 mg at that point. He will remain with 50 mg daily until we talk next. Advised George to reach out if he has any issues when making this switch. George seems in fair spirits today. We did talk about the difficult time he had on the which came with increased suicidal thinking during that time. George was able to manage these thoughts and to stay safe. He has numbers to crisis and is advised to reach out to me if these thoughts return or he needs more support. George continues in therapy as well. Next Visit: in 1 month. Patient is aware of how to access [facility] open access MH clinic in [facility] during weekdays for immediate mental health needs if I am not available. Patient has capacity to make his own medication decisions at present time. I asked the patient to come for sooner appointment if the patient does not like the effect of psychiatric medication or if has side effects with psychiatric medication. The patient's primary care physician follows blood pressure, weights, lipids, glucose The risk of priapism with trazodone was reviewed with the patient. The patient was instructed to get immediate medical attention if he has priapism. The risk of next-day sedation and of falling with trazodone was also reviewed with the patient. The patient feels benefits outweigh risks -- this is reasonable. The pt understands not to combine psychiatric meds with alcohol or street drugs. Because the pt reports significant benefit from psychiatric medication, it is reasonable to continue to prescribe the psychiatric medication, even if there is risk of relapse to substance abuse -- the benefits of psychiatric medications outweigh the risks, even in the setting of substance abuse (and by helping to calm psychiatric symptoms, the medications may help decrease the risk/severity of substance abuse relapses) ::: Psychotropic meds were reconciled; and no discrepancies were noted. Discussed R/B/SE/A and necessity for lab monitoring; as well as off-label use, drug-drug interactions, potential for suicidal thinking with some psychotropics. Patient provided with updated medication list and reminded of importance of ensuring that changes including OTCs/herbals get added. Patient voiced understanding and agreement with current treatment plan. ::: Reviewed most recent labs, No studies ordered at this visit. ::: Had a supportive discussion with pt and cont to provide psychoeducation and brief supportive therapy including again providing psychoeducation on sleep hygiene, diet, exercise and med compliance. Pt agrees to present to ER or call 911 for psychiatric emergencies, including SI/HI. ::: SAFETY PLAN: Pt was educated about emergency services available at this facility e.g., ER) and in the community (including Crisis Line, 911, [place] National Suicide Prevention Lifeline: 2-503-858-TALK). Patient is instructed to contact me should symptoms worsen or side effects develop. Pt agreed to use these resources if warranted. ::: Pt was educated about risks of interactions between drugs/alcohol and psychotropic medications and voiced understanding. Pt was also warned not to drive or operate heavy machinery until the effects of psychotropic medications is known. CRISIS PLAN: The patient denied suicidal and violent ideation, but the Veterans Crisis Line information and number were given to patient. The patient also understands to call 911 or to go to ER in the event of an emergency. Medication Reconciliation: Outpatient: Has the patient been taking medications as documented in the EMLR? No: Discrepencies were identified. See below. Essential Medication List for Review used to complete this medication reconciliation. INCLUDED IN THIS LIST: Alphabetical list of active outpatient prescriptions dispensed from this OR (local) and dispensed from another OR or DoD facility (remote) as well as inpatient orders (local, pending and active), local clinic medications, locally documented non-VA medications, and local prescriptions that have or been discontinued in the past 90 days. - Discrepancies were identified, addressed, and discussed with the patient/caregiver at this encounter. Discrepancies: has not started sertraline. He remains on lexapro 20 mg. - All changes in medications, including all non-VA/Herbal/OTC medications were entered into CPRS. - If there were any medications the patient should no longer take, they were discontinued. - The patient/caregiver was instructed to update this list, discard old lists, and take this list to the next appointment, whether with a VA or non-VA provider. /blair/ VIKTOR CHIU MD PSYCHIATRIST Signed: 05/25/2024 15:31 VIKTOR CHIU [facility]
--- OUTSIDE RECORDS SUMMARY | 2024-06-04 11:16 | XMS_ITS | Encounter Summary ---
Author Name [facility] [place] [facility] [place] Address [address] [place] [address] Care Team Providers Care Gifts Officer Name Role Phone DELIA CHRISTIANSEN Primary Care Provider Unavaila [facility] Insurance Providers: All historical and current [...] Garner's Name Patient's Relationship to Policy Garner [facility] Apr 03, 2012 [id number] [phone] [id number] [phone] DIANE RASCON SPOUSE Selected Encounter This section includes the information on record at [place] for the Encounter. Date/Time Encounter Type Encounter Description Reason Pro vider Source Apr 08, 2024 11:38 AM Outpatient Encounter ADMIN PAT ACTIVTIES (MASNONCT) IHE Encounter Template Text not used by [place] Plan of Treatment: Future Appointments (+ 6 [...] 20 appointments. The data comes from all [place] treatment facilities. Appointment Date/Time Appointment Type Appointme nt Facility Name Apr 24, 2024 02:00 PM [facility] [place] [facility] May 04, 2024 03:00 PM [facility] [place] [facility] May 15, 2024 02:00 PM AMBULATORY - PS[place]IATRY [place] [facility] [place] [facility] May 25, 2024 03:00 PM [facility] [place] [facility] Jun 12, 2024 02:00 PM AMBULATORY - PS[place]CHIATRY [place] [facility] [place] [facility] Jun 23, 2024 03:30 PM [facility] [place] [facility] Jul 07, 2024 01:30 PM AM[facility] Jul 07, 2024 01:30 PM [facility] Active, Pending, and Scheduled Orders This section includes a listing of several types of active, pending, and scheduled orders, including clinic medications orders, diagnostic test orders, procedure orders and consult orders; where the start date of the order is 45 days before the date of the Encounter or 45 days after the date of theEncounter. The data comes from all [place] treatment [facility]. Test Date/Time Test Type Test Details Facility Name Apr 07, 2024 10:17 AM Consult Order COMMUNITY CARE-OPTOMETRY ROUTINE EYE EXAM Cons Making Machine Operator's Choice [facility] Social History: Smoking Status (Most current) and Tobacco Use (All prior to encounter date) This section includes the most current, and the historical, smoking and tobacco- related health factors from the [place] facility where the Encounter took place. Current Smoking Status This section includes the most current smoking, or tobacco-related health factor, from the [place] facility where the Encounter took place. Date/Time Current Smoking Status Comment Facil it Apr 01, 2024 08:30 AM VA-TOBACCO FORMER USER [facility] Tobacco Use History This section includes a history of the smoking, or tobacco-related health factors, that were collected on or before the date of the Encounter. The data comes from the [place] facility where the Encounter took place. Date/Time Smoking Status/Tobac co Use Comment Facility Apr 01, 2024 08:30 AM VA-TOBACCO QUIT 15 YRS OR MORE [facility] [place] [facility] Jan 09, 2023 05:09 PM [facility] Jan 09, 2023 05:09 PM VA-TOBACCO QUIT 15 YRS OR MORE [place] [facility] [place] [facility] Jan 04, 2017 07:42 AM LIFETIME NON-TOBACCO USER [facility] Dec 26, 2015 09:20 AM QUIT TOBACCO USE > 7 YEARS AGO quit in 1997 [facility] October 27, 2003 03:29 PM HISTORY OF SMOKING Smoke free 6 years [facility] Jan 02, 2002 08:56 AM HISTORY OF SMOKING [place] [facility] Jan 02, 2002 08:56 AM QUIT TOBACCO USE > 7 YEARS AGO [facility] Jan 14, 2001 11:25 AM HISTORY OF SMOKING non smoker 4 years [facility] Encounter Notes: All associated encounter notes This section contains the clinical notes associated to the Encounter. Date/Time Encounter Note(s) Provider Source Apr 08, 2024 11:40 AM LETTERS: LOCAL TITLE: PATIENT LETTER (B) STANDARD TITLE: LETTERS DATE OF NOTE: APR 08, 2024@11:40 ENTRY DATE: APR 08, 2024@11:40:32 AUTHOR: BRE GUERRERO COSIGNER: URGENCY: STATUS: COMPLETED [facility] Toll Free Number [facility] scheduling can be reached at ext. [phone] [facility]- ext. [phone] [facility]- ext. [phone] [facility]- ext. [phone] APR 08, 2024 DIANE RASCON [address], [place] [address] Dear DIANE RASCON Thank you for choosing the Department of [facility] ([place]) [facility] as your primary choice for health care. As a partner in your health care, we are contacting you in writing since we have been unsuccessful in our attempts to reach you to date. We want to assure you we are doing everything possible to schedule Veterans for their VA medical care appointments. Our records indicate you are due for an appointment in [facility] . If you would like to be seen, please contact [place] Call Center at ext. [phone] to schedule an appointment. Thank you for your service to our nation, and we look forward to hearing from you soon. has context menu BRE GUERRERO [facility] Apr 08, 2024 11:38 AM ADMINISTRATIVE NOT E: LOCAL TITLE: ADMINISTRATIVE RECALL NOTE STANDARD TITLE: ADMINISTRATIVE NOTE DATE OF NOTE: APR 08, 2024@11:38 ENTRY DATE: APR 08, 2024@11:38:49 AUTHOR: BRE GUERRERO EXP COSIGNER: URGENCY: STATUS: COMPLETED RTC orders: Unable to contact patient: Attempts to contact: 1st attempt: Left voicemail 2nd attempt: Letter mailed Disposition on Apr /blair/ BRE GUERRERO PACKER DENTURE Signed: 04/08/2024 11:40 BRE GUERRERO [facility]
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
--- OUTSIDE RECORDS SUMMARY | 2024-06-04 11:16 | XMS_ITS ---
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 Date/Time Encounter Type Encounter Description Reason Provider Source Apr 24, 2024 02:00 PM PSYTX W PT 45 MINUTES MENTAL HEALTH CLINIC - IND ICD-10-CM E66.9 Obesity, unspecified TARIQ TRAN [place] Encounter Template Text not used by [place] Assessments - Encounter Diagnoses This section includes the primary and secondary diagnoses documented for the Encounter. Date/Time Primary/Secondary Diagnosis Diagnosis Name Provider Source Apr 24, 2024 02:57 PM PRIMARY Obesity, unspecified PENNY,KARSTEN A [place] CNTR [place] [facility] Apr 24, 2024 02:57 PM SECONDARY Depression, unspecified PENNY,KARSTEN Lackey [facility] [place] [facility] Apr 24, 2024 02:57 PM SECONDARY Generalized anxiety disorder KARSTEN FRANCIS [facility] Apr 24, 2024 02:57 PM SECONDARY Primary insomnia KARSTEN FRANCIS [facility] Plan of Treatment: Future Appointments (+ 6 months) and Future Tests (+/- 45 days) The Plan of Treatment section includes future care activities for the patient from all [place] [facility] [place] This section includes future appointments and future orders which are active, pending or scheduled. Future Appointments This section includes appointments that were scheduled to occur 6 months from the date of the Encounter, up to a maximum of 20 appointments. The data comes from all [facility]. Appointment Date/Time Appointment Type Appointme nt Facility Name May 04, 2024 03:00 PM AMBULATORY - PS[facility]IAT[facility] May 15, 2024 02:00 PM AMBULATORY - PS[facility]CHIATRY [facility] May 25, 2024 03:00 PM AMBULATORY - PS[facility]IATRY [facility] [place] [facility] Jun 12, 2024 02:00 PM AMBULATORY - PS[facility]CHIATRY [facility] [place] [facility] Jun 23, 2024 03:30 PM AMBULATORY - PS[facility]CHIATRY [facility] Jul 07, 2024 01:30 PM AMBULATORY - NEUROLOGY [facility] Jul 07, 2024 01:30 PM AMBULATORY - NEUROLOGY [facility] Active, Pending, and Scheduled Orders This section includes a listing of several types of active, pending, and scheduled orders, including clinic medications orders, diagnostic test orders, procedure orders and consult orders; where the start date of the order is 45 days before the date of the Encounter or 45 days after the date of theEncounter. The data comes from all [facility]. Test Date/Time Test Type Test Details Facility Name Apr 07, 2024 10:17 AM Consult Order COMMUNITY CARE-OPTOMETRY ROUTINE EYE EXAM Cons Scientific Research Associate's Choice [facility] Social History: Smoking Status (Most current) and Tobacco Use (All prior to encounter date) This section includes the most current, and the historical, smoking and tobacco- related health factors from the [place] facility where the Encounter took place. Current Smoking Status This section includes the most current smoking, or tobacco-related health factor, from the [place] facility where the Encounter took place. Date/Time Current Smoking Status Comment Facil ity Apr 01, 2024 08:30 AM VA-TOBACCO QUIT 15 YRS OR MORE [facility] Tobacco Use History This section includes a history of the smoking, or tobacco-related health factors, that were collected on or before the date of the Encounter. The data comes from the [place] facility where the Encounter took place. Date/Time Smoking Status/Tobac co Use Comment Facility Apr 01, 2024 08:30 AM [place]-TOBACCO QUIT 15 YRS OR MORE [facility] Jan 09, 2023 05:09 PM VA-TOBACCO FORMER USER [facility] Jan 09, 2023 05:09 PM VA-TOBACCO QUIT 15 YRS OR MORE [facility] Jan 04, 2017 07:42 AM LIFETIME NON-TOBACCO USER [facility] Dec 26, 2015 09:20 AM QUIT TOBACCO USE > 7 YEARS AGO quit in 1997 [facility] October 27, 2003 03:29 PM HISTORY OF SMOKING Smoke free 6 years [facility] Jan 02, 2002 08:56 AM HISTORY OF SMOKING [facility] Jan 02, 2002 08:56 AM QUIT TOBACCO USE > 7 YEARS AGO [facility] Jan 14, 2001 11:25 AM HISTORY OF SMOKING non smoker 4 years [facility] Encounter Notes: All associated encounter notes This section contains the clinical notes associated to the Encounter. Date/Time Encounter Note(s) Provider Source Apr 24, 2024 02:53 PM TELEHEALTH NOTE: LOCAL TITLE: [place] VIDEO CONNECT PSYCHOLOGY NOTE STANDARD TITLE: TELEHEALTH NOTE DATE OF NOTE: APR 24, 2024@14:53 ENTRY DATE: APR 24, 2024@14:53:53 AUTHOR: KARSTEN FRANCIS COSIGNER: TARIQ TRAN URGENCY: STATUS: COMPLETED [place] VIDEO CONNECT PSYCHOLOGY NOTE Has ADDENDA This [...] a 50 minute individual psychotherapy appointment on 04/24/2024 in the treatment of depression, anxiety and insomnia. DATA: We processed the [place]'s recent medication consult with an METAL TURNER, and upcoming consult with a staff psychiatrist. The shared that he had begun fasting in hopes to feel better and lose weight. We explored the challenges of using affect as an outcome in goal setting, oriented to SMART goals, and discussed ways to operationalize the [place]'s goals around weight loss. We explored ways to facilitate incremental changes in service of terminologist goals. ASSESSMENT: The was on time to the appointment and was fully engaged. Grooming and dress were WNL. Gross motor function was WNL. Mood was euthymic and affect was congruent. Speech was normal in rate, tone and prosody. Insight and judgement were intact. There was no evidence of A/VH or thought disorder. No SI/emergent risk. PLAN: will RTC for individual psychotherapy on 05/15/2024 with provider, Dr. Karsten Francis. [place] [employer] ([facility]) Standard Documentation [facility] Clinician Resources Only: E911 (Emergency Call Relay Center): [phone] National Veterans Crisis Line - 988 then press #1. [facility] Suicide Coordinator [phone], Ext. [phone]; Back-up Ext. [phone] [place] Police, Arnold STOKES [phone] Introduction: Visit is being conducted by [employer]. [place] identified with 2 identifiers: [X] Full Name [X] Date of [ ] VA ID Card Emergency Plan: [place] confirmed and/or provided the following information in case of emergency or technology failure. PATIENT PHONE - PHONE NUMBER [CELLULAR] - Is patient phone number correct, if not, enter below: [place]'s phone number: DIANE Patel TARAH [address], [place], [address] 's present location and address for appointment: Home address above. 's emergency contact name and phone number: Wilda Rascon reported that location is private and safe: Yes Informed Consent: [place] informed of the risks and benefits of Telehealth video care. has the right to refuse video services. If refuses video visit, a [id number] visit will be scheduled. [place] verbalized consent for this video visit: Yes provided consent for any other persons present for visit: N/A If yes, who and relationship to patient: Secure visit: Visit was locked for security and privacy:Yes /blair/ KARSTEN FRANCIS, PHD [facility] Post-Doctoral Psychology Trainee Signed: 04/24/2024 14:56 /blair/ TARIQ TRAN PSYD PSYCHOLOGIST Cosigned: 04/27/2024 09:02 04/27/2024 ADDENDUM STATUS: COMPLETED I have reviewed this case and concur with the clinical impressions and recommendations made by this trainee who is under my clinical supervision. /blair/ TARIQ TRAN PSYD PSYCHOLOGIST Signed: 04/27/2024 09:03 KARSTEN FRANCIS [place] [facility]
--- OUTSIDE RECORDS SUMMARY | 2024-06-04 11:16 | XMS_ITS | Encounter Summary ---
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 Date/Time Encounter Type Encounter Description Reason Provider Source May 15, 2024 02:00 PM PSYTX W PT 45 MINUTES [facility] - IND ICD-10-CM F33.1 Major depressive disorder, recurrent, moderate TARIQ TRAN [place] Encounter Template Text not used by [place] Assessments - Encounter Diagnoses This section includes the primary and secondary diagnoses documented for the Encounter. Date/Time Primary/Secondary Diagnosis Diagnosis Name Provider Source May 15, 2024 04:00 PM PRIMARY Major depressive disorder, recurrent, moderate KARSTEN FRANCIS [place] [facility] [place] [facility] May 15, 2024 04:00 PM SECONDARY Generalized anxiety disorder KARSTEN FRANCIS [facility] May 15, 2024 04:00 PM SECONDARY Primary insomnia KARSTEN FRANCIS [facility] Plan of Treatment: Future Appointments (+ 6 months) and Future Tests (+/- 45 days) The Plan of Treatment section includes future care activities for the patient from all [place] [facility]. This section includes future appointments and future orders which are active, pending or scheduled. Future Appointments This section includes appointments that were scheduled to occur 6 months from the date of the Encounter, up to a maximum of 20 appointments. The data comes from all [place] treatment facilities. Appointment Date/Time Appointment Type Appointme nt Facility Name May 25, 2024 03:00 PM AMBULATORY - PSYCHIATRY [facility] Jun 12, 2024 02:00 PM AMBULATORY - PSYCHIATRY [facility] Jun 23, 2024 03:30 PM AMBULATORY - PSYCHIATRY [facility] Jul 07, 2024 01:30 PM AMBULATORY - NEUROLOGY [facility] Jul 07, 2024 01:30 PM AMBULATORY - NEUROLOGY [facility] Active, Pending, and Scheduled Orders This section includes a listing of several types of active, pending, and scheduled orders, including clinic medications orders, diagnostic test orders, procedure orders and consult orders; where the start date of the order is 45 days before the date of the Encounter or 45 days after the date of theEncounter. The data comes from all [facility]. Test Date/Time Test Type Test Details Facility Name Apr 07, 2024 10:17 AM Consult Order COMMUNITY CARE-OPTOMETRY ROUTINE EYE EXAM Cons Tooth Cutter Clutch's Choice [facility] Social History: Smoking Status (Most current) and Tobacco Use (All prior to encounter date) This section includes the most current, and the historical, smoking and tobacco- related health factors from the [place] facility where the Encounter took place. Current Smoking Status This section includes the most current smoking, or tobacco-related health factor, from the [place] facility where the Encounter took place. Date/Time Current Smoking Status Comment Facil ity Apr 01, 2024 08:30 AM VA-TOBACCO FORMER USER [facility] Tobacco Use History This section includes a history of the smoking, or tobacco-related health factors, that were collected on or before the date of the Encounter. The data comes from the [place] facility where the Encounter took place. Date/Time Smoking Status/Tobac co Use Comment Facility Apr 01, 2024 08:30 AM [place]-TOBACCO QUIT 15 YRS OR MORE [facility] Jan 09, 2023 05:09 PM VA-TOBACCO FOR[facility] USER [facility] Jan 09, 2023 05:09 PM VA-TOBACCO QUIT 15 YRS OR MORE [facility] Jan 04, 2017 07:42 AM LIFETIME NON-TOBACCO USER [facility] Dec 26, 2015 09:20 AM QUIT TOBACCO USE > 7 YEARS AGO quit in 1997 [facility] October 27, 2003 03:29 PM HISTORY OF SMOKING Smoke free 6 years [facility] Jan 02, 2002 08:56 AM HISTORY OF SMOKING [facility] Jan 02, 2002 08:56 AM QUIT TOBACCO USE > 7 YEARS AGO [facility] Jan 14, 2001 11:25 AM HISTORY OF SMOKING non smoker 4 years [facility] Encounter Notes: All associated encounter notes This section contains the clinical notes associated to the Encounter. Date/Time Encounter Note(s) Provider Source May 15, 2024 03:02 PM TELEHEALTH NOTE: LOCAL TITLE: [place] VIDEO CONNECT PSYCHOLOGY NOTE STANDARD TITLE: TELEHEALTH NOTE DATE OF NOTE: MAY 15, 2024@15:02 ENTRY DATE: MAY 15, 2024@15:02:30 AUTHOR: KARSTEN FRANCIS COSIGNER: TARIQ TRAN URGENCY: STATUS: COMPLETED [place] VIDEO CONNECT PSYCHOLOGY NOTE Has ADDENDA This [...] a 40 minute individual psychotherapy appointment on 05/15/2024 in the treatment of depression, anxiety and insomnia. DATA: The shared that he was at home today with COVID, and had been sick for the past 5 or so days. We reviewed positive impressions of his new proscriber and medication changes. The shared that up until he contracted COVID he had continued with his fasting practice (primarily eating dinner), and noted some minor subjective improvements in energy and mood. He indicated that he intended to return to this after his covelescence. We discussed potential future more wholistic lifestyle changes (e.g., eating healthier foods, getting exercise). We spoke in particular about using his lunch time to get some moderate exercise (walking). The somewhat interested in persuing this idea. The provider observed that the [place] seemed more upbeat than usual despite having COVID, and we processed this together. ASSESSMENT: The [place] was on time to the appointment and was fully engaged. Grooming and dress were WNL. Gross motor function was WNL. Mood was euthymic and affect was congruent. Speech was normal in rate, tone and prosody. Insight and judgement were intact. There was no evidence of A/VH or thought disorder. No SI/emergent risk. PLAN: will RTC for individual psychotherapy on 06/12/2024 with provider, Dr. Karsten Francis. [place] [employer] ([facility]) Standard Documentation [facility] Clinician Resources Only: E911 (Emergency Call Relay Center): [phone] National [employer] Crisis Line - 988 then press #1. [facility] Suicide Coordinator [phone], Ext. [phone]; Back-up Ext. [phone] [place] [employer], [place] [phone] Introduction: Visit is being conducted by [employer]. identified with 2 identifiers: [X] Full Name [X] Date of [ ] VA ID Card Emergency Plan: [place] confirmed and/or provided the following information in case of emergency or technology failure. PATIENT PHONE - PHONE NUMBER [CELLULAR] - Is patient phone number correct, if not, enter below: 's phone number: DIANE Patel TARAH [address], [place], [address] [place]'s present location and address for appointment: Home address above. [place]'s emergency contact name and phone number: Wilda Rascon [place] reported that location is private and safe: Yes Informed Consent: informed of the risks and benefits of Telehealth video care. [place] has the right to refuse video services. If refuses video visit, a [id number] visit will be scheduled. verbalized consent for this video visit: Yes [place] provided consent for any other persons present for visit: N/A If yes, who and relationship to patient: Secure visit: Visit was locked for security and privacy:Yes /blair/ KARSTEN FRANCIS, PHD [facility] Post-Doctoral Psychology Trainee Signed: 05/15/2024 16:00 /blair/ TARIQ TRAN PSYD PSYCHOLOGIST Cosigned: 05/15/2024 16:26 05/15/2024 ADDENDUM STATUS: COMPLETED I have reviewed this case and concur with the clinical impressions and recommendations made by this trainee who is under my clinical supervision. /blair/ TARIQ TRAN PSYD PSYCHOLOGIST Signed: 05/15/2024 16:27 KARSTEN FRANCIS [facility] [facility]
--- OUTSIDE RECORDS SUMMARY | 2024-06-04 11:16 | XMS_ITS ---
Author Name [facility] [place] [facility] [place] [facility] [place] Address [address] [place] [id number] Care Team Providers Care Box Sealing Inspector Name Role Phone DELIA CHRISTIANSEN Primary Care [...] Garner's Name Patient's Relationship to Policy Garner [facility] Apr 03, 2012 [id number] [phone] [id number] [phone] DIANE RASCON SPOUSE Selected Encounter This section includes the information on record at [place] for the Encounter. Date/Time Encounter Type Encounter Description Reason Pro vider Source May 04, 2024 03:00 PM Outpatient Encounter [facility] Encounter Template Text not used by [place] Plan of Treatment: Future Appointments (+ 6 months) and Future Tests (+/- 45 days) The Plan of Treatment section includes future care activities for the patient from all [place] treatmentfacilities. This section includes future appointments and future orders which are active, pending or scheduled. Future Appointments This section includes appointments that were scheduled to occur 6 months from the date of the Encounter, up to a maximum of 20 appointments. The data comes from all [place] treatment facilities. Appointment Date/Time Appointment Type Appointme nt Facility Name May 15, 2024 02:00 PM [facility] [place] [facility] May 25, 2024 03:00 PM [facility] [place] [facility] Jun 12, 2024 02:00 PM AMBULATORY - PS[place]CHIATRY [place] [facility] [place] [facility] Jun 23, 2024 03:30 PM [facility] [place] [facility] Jul 07, 2024 01:30 PM AMBULATORY - [facility]OLOGY [facility] Jul 07, 2024 01:30 PM [facility] Active, Pending, and Scheduled Orders This section includes a listing of several types of active, pending, and scheduled orders, including clinic medications orders, diagnostic test orders, procedure orders and consult orders; where the start date of the order is 45 days before the date of the Encounter or 45 days after the date of theEncounter. The data comes from all [place] treatment facilities. Test Date/Time Test Type Test Details Facility Name Apr 07, 2024 10:17 AM Consult Order COMMUNITY CARE-OPTOMETRY ROUTINE EYE EXAM Cons Brick Burner's Choice [facility] Social History: Smoking [...] took place. Date/Time Current Smoking Status Comment [facility] Apr 01, 2024 08:30 AM VA-TOBACCO FORMER USER [facility] Tobacco Use History This section includes a history of the smoking, or tobacco-related health factors, that were collected on or before the date of the Encounter. The data comes from the [place] facility where the Encounter took place. Date/Time Smoking Status/Tobac co Use Comment Facility Apr 01, 2024 08:30 AM VA-TOBACCO QUIT 15 YRS OR MORE [facility] Jan 09[facility] 2023 05:09 PM [facility]AC[facility] Jan 09, 2023 05:09 PM VA-TOBACCO QUIT 15 YRS OR MORE [facility] Jan 04, 2017 07:42 AM LIFETIME NON-TOBACCO USER [facility] Dec 26, 2015 09:20 AM QUIT TOBACCO USE > 7 YEARS AGO quit in 1997 [facility] October 27, 2003 03:29 PM HISTORY OF SMOKING Smoke free 6 years [facility] Jan 02, 2002 08:56 AM HISTORY OF SMOKING [facility] Jan 02, 2002 08:56 AM QUIT TOBACCO USE > 7 YEARS AGO [facility] Jan 14, 2001 11:25 AM HISTORY OF SMOKING non smoker 4 years [facility]
[2024-06-04 11:37] LABS: MANUAL DIFF FLAG NO
[2024-06-04 11:38] LABS: Basophils Percent Auto 0.6 % (0-2); Eosinophils Absolute Auto 0.1 X10*3/uL (0.0-0.4); Eosinophils Percent Auto 0.9 % (0-4); Hematocrit 36.6 % (42.0-52.0); Hemoglobin 11.9 g/dl (14.0-18.0); Imm Gran Abs Auto 0.02 X10*3/uL (0.00-0.03); Imm Gran Pct Auto 0.3 % (0.0-0.4); Lymphocytes Absolute Auto 1.4 X10*3/uL (1.2-4.9); Lymphocytes Percent Auto 20.9 % (20-40); Mean Corpuscular HGB Conc 32.5 g/dl (31.0-36.0); Mean Corpuscular Volume 83.2 fL (80.0-98.0); Mean Platelet Volume 9.9 fL (9.4-12.4); Monocytes Absolute Auto 0.4 X10*3/uL (0.1-1.2); Monocytes Percent Auto 5.6 % (2-11); Neutrophils Absolute Auto 4.6 x10*3/uL (2.0-8.3); Neutrophils Percent Auto 71.7 % (45-73); Platelet Count 191 X10*3/uL (160-400); Red Cell Distribution Width 14.2 % (11.0-16.0); White Blood Count 6.5 X10*3/uL (4.8-10.8)
[2024-06-04 11:43] LABS: INTERNATIONAL NORM RATIO 1.3 (0.9-1.1); Prothrombin Time 14.9 SEC (10.9-12.4)
[2024-06-04 11:52] LABS: Alanine Aminotransferase 28 U/L (0-40); Albumin Level 3.6 g/dL (3.5-5.0); Alkaline Phosphatase 64 U/L (39-117); Anion Gap 10 (12-20); Aspartate Amino Transferase 16 U/L (5-37); Bilirubin Direct 0.4 mg/dL (0.0-0.5); Bilirubin Total 1.7 mg/dL (0.0-1.0); Blood Urea Nitrogen 20 mg/dL (9-16); Calcium 8.1 mg/dL (8.4-10.2); Carbon Dioxide 22 mmol/L (22-29); Chloride 112 mmol/L (96-108); Creatinine Clr Calc Pharmacy 176.8; Estimated Glomerular Filt Rate > 60; Glucose Random 97 mg/dL (60-115); Lipase 17 U/L (8-78); Potassium 4.3 mmol/L (3.3-5.1); Sodium 140 mmol/L (135-145); Total Protein 5.9 g/dL (6.5-8.0)
[2024-06-04 11:57] LABS: Troponin-I High Sensitivity 4.3 ng/L (<3.5-35.0)
[2024-06-04 11:58] LABS: B Type Natriuretic Peptide 1578 pg/mL (<100)
--- NOTE | 2024-06-04 11:59 | ED_ITS ---
HPI - Chest Pain General Chief Complaint: Chest Pain Stated Complaint: diff breathing, abd pain Time Seen by Provider: 06/04/24 11:54 Source: patient and RN notes reviewed Mode of arrival: ambulatory Limitations: no limitations History of Present Illness ED Provider: Loren Collins PA-C HPI narrative: This is a 53-year-old male, with no known medical problems, who presents emergency department with concerns for shortness for breath, and chest pain. Patient states that mid May he developed COVID. He states that he started on Paxlovid. He states that he took this however felt as though this caused him to have abdominal pain. He states that he had shortness for breath and chest pain at that time. He states that his symptoms improved, and states that he no longer feels his COVID like symptoms however states that he continues to have shortness for breath. He states that he notices the shortness for breath upon exertion and lying down. He states that he feels as though his abdomen is distended, denies any lower extremity swelling. He also reports that over the last several days he has had pleuritic sharp pain in his left side of his chest. He denies history of similar symptoms in the past. He denies any recent travel, surgery, or hospitalizations. Denies history of similar symptoms in the past. No history of CHF. No known family medical history. MD complaint: chest pain Onset (ago): day(s) Treatment prior to arrival: none Risk Factors Coronary artery disease risk factors: none Related Data Home Medications ?Medication ?Instructions ?Recorded ?Confirmed escitalopram oxalate 10 mg tablet 10 mg PO DAILY 06/04/24 06/04/24 trazodone 100 mg tablet 200 mg PO BEDTIME PRN Sleep 06/04/24 06/04/24 Previous Rx's ?Medication ?Instructions ?Recorded empagliflozin 25 mg tablet 25 mg PO DAILY #0 tabs 06/08/24 (Jardiance) furosemide 10 mg/mL injection 40 mg IVPUSH DAILY #0 mL 06/08/24 solution metoprolol succinate 25 mg 12.5 mg (1/2 x 25 mg) PO DAILY #30 06/08/24 tablet,extended release 24 hr tabs (Toprol XL) sacubitril 24 mg-valsartan 26 mg 1 tab PO BID #0 tabs 06/08/24 tablet (Entresto) spironolactone 25 mg tablet 12.5 mg PO DAILY #0 tabs 06/08/24 Allergies Allergy/AdvReac Type Severity Reaction Status Date / Time No Known Allergies Allergy Verified 06/04/24 10:54 Review of Systems 2 Review of Systems: Yes all other systems are reviewed and are negative Constitutional: Constitutional: Reports as per [facility] Past Medical History Attestation statement: The following information was validated with the patient. Medical History (Updated 06/08/24 @ 09:45 by Chirag Byers MD) JW (obstructive sleep apnea) Mood disorder Social History Social History Household Members: Spouse and Other Household Members Other:: son, mother Housing: House Do you presently have visiting nurse or other home services: No Patient Tobacco Use Status: Never used Tobacco service: No Physical Exam 2 Vital Signs: Vital Signs: Last Vital Signs Temp 96.9 F 06/09/24 07:33 Pulse 92 06/09/24 07:33 Resp 16 06/09/24 07:33 BP 100/59 L 06/09/24 07:33 Pulse Ox 95 06/09/24 07:33 O2 Del Method Room Air 06/09/24 07:33 O2 Flow Rate 3 06/07/24 04:00 BMI result Body Mass Index 46.2 Const: General: cooperative, comfortable and no acute distress O rientation/consciousness: patient oriented x3 Limitations: no limitations HEENT: Head: Yes normal to inspection, Yes normocephalic and Yes atraumatic Ears: hearing grossly normal bilaterally General nose exam: Normal external nose present Face and sinus: Yes normal facial exam Mouth: Normal oral and palatal mucosa present, oropharynx normal and moist mucous membranes Throat: Yes posterior oropharynx normal Eyes: General: appearance normal, both eyes and all related structures E yelids: Yes eyelids normal Conjunctivae: conjunctivae normal Sclerae: s clerae normal Pupils: Equal, round and reactive pupils present EOM: EOMs intact bilaterally Neck: Neck: Yes normal visual inspection, Yes full ROM and Yes no lymphadenopathy Lymphatic: no lymphadenopathy noted Chest: Chest palpation & inspection: normal inspection of the chest Resp: Other: Bibasilar faint crackles noted bilaterally. No wheezes Effort & Inspection: normal respiratory effort and able to speak in complete sentences Auscultation: clear to auscultation bilaterally Cardio: Rate: regular rate Rhythm: regular rhythm Heart sounds: S1 normal heart sound present and S2 normal heart sound present GI: Other: Obese abdomen, nontender, no rebound or guarding. Inspection: Yes normal to inspection Skin: General skin exam: no rashes or lesions noted Trauma: no lacerations or abrasions Wounds: no wounds Neuro: General: patient oriented x3 and moves all extremities Cranial nerves: Yes Equal, round and reactive pupils present Extrem: Other: Peripheral edema. No calf tenderness. General: Yes normal to inspection Right upper extremity: normal to inspection Left upper extremity: normal to inspection Right lower extremity: normal to inspection Left lower extremity: normal to inspection Course Reevaluation(s) Reevaluation #1: CT angio revealing no evidence of PE, or aortic aneurysm. There are small bilateral pleural effusions. There is also nonspecific ground glass attenuation seen in both lower lobes and upper lobes likely airway disease. No acute consolidation seen. Patient's symptoms consistent with acute CHF. He has no history of this. Walking O2 sat decreased down to 89%, patient tachypneic. Will start IV Lasix, and admit to the hospitalist service Time: 14:46 Medications Administered Generic Name Dose Route Start Last Admin Trade Name Freq PRN Reason Stop Dose Admin Acetaminophen 650 mg 06/04/24 15:35 06/06/24 17:41 Acetaminophen 325 Mg Tablet PO 650 mg Q6H PRN Administration Pain, Mild 1-3,fever,headache Empagliflozin 25 mg 06/05/24 09:50 06/09/24 09:22 Empagliflozin 25 Mg Tablet PO 25 mg DAILY KELLY Administration Enoxaparin Sodium 40 mg 06/05/24 09:00 06/09/24 09:30 Enoxaparin Sodium 40 Mg/0.4 Ml Syringe SUBCUT Not Given Q24H KELLY Furosemide 40 mg 06/08/24 09:00 06/09/24 09:22 Furosemide 40 Mg/4 Ml Vial IVPUSH 40 mg DAILY KELLY Administration Protocol Metoprolol Succinate 12.5 mg 06/08/24 09:55 06/09/24 09:23 Metoprolol Succinate Er 12.5 Mg Halftab.Er.24h PO 12.5 mg DAILY KELLY Administration Protocol Sacubitril/Valsartan 1 tab 06/05/24 10:00 06/09/24 09:23 Sacubitril/Valsartan 1 Tab Tablet PO 1 tab BID KELLY Administration Protocol Sodium Chloride 3 ml 06/04/24 16:00 06/09/24 09:23 0.9 % Sodium Chloride Flush 3 Ml Syringe IVFLUSH 3 ml QSHIFT KELLY Administration Spironolactone 12.5 mg 06/07/24 09:00 06/09/24 09:22 Spironolactone 25 Mg Tablet PO 12.5 mg DAILY KELLY Administration Protocol Discontinued Medications Generic Name Dose Route Start Last Admin Trade Name Aydin PRN Reason Stop Dose Admin Furosemide 40 mg 06/04/24 15:17 06/04/24 15:26 Furosemide 40 Mg/4 Ml Vial IVPUSH 06/04/24 15:18 40 mg ONCE ONE Administration Protocol Furosemide 40 mg 06/04/24 18:00 06/07/24 08:02 Furosemide 40 Mg/4 Ml Vial IVPUSH 40 mg BID@0900,1800 KELLY Administration Protocol Iohexol 100 ml 06/04/24 14:27 06/04/24 14:27 Iohexol 350 Mg/Ml 100 Ml Infus..Btl IV 06/04/24 14:28 65 ml ONCE ONE Administration Medical Decision Making Medical Decision Making MDM Narrative: This is a 53-year-old male, with a history of sleep apnea with CPAP, who presents emergency department with complaints of shortness for breath and chest discomfort. On arrival, patient hypertensive at 136/92, pulse 108, oxygen saturation 93% on room air. He is speaking in full sentences under no acute distress. Bibasilar faint crackles heard, he has no peripheral edema. He reports recent COVID infection and has had shortness for breath since mid April, worsening over the last several days. Shortness for breath worsens with lying down, and with ambulation. Labs were performed prior to my assessment, he has no leukocytosis, normocytic anemia noted with an H&H of 11.9/36.6, chemistry revealing no significant electrolyte derangement however patient does have an elevation in BNP. He has no hx of CHF, no previous BNP on record for comparison. Differential Diagnosis Differential Diagnoses: The differential diagnosis associated with the presentation includes CHF, pneumonia, PE, ACS Admission/Observation Consideration of admission/observation: Escalation of care including admission/observation considered Consult Healthcare Provider Management of the patient was discussed with: Hospitalist Dr. Mathews Lab Data MDM Lab Attestation statement: I reviewed the patient's lab results. No leukocytosis, H&H revealing a normocytic anemia at 11.9/36.6. Platelets WNL. T Bili slightly elevated at 1.7. BNP elevated at 1578. 06/08/24 07:09 06/08/24 07:09 Labs: Lab Results 06/04/24 Range/Units 11:30 WBC 6.5 (4.8-10.8) X10*3/uL RBC 4.40 L (4.60-5.80) X10*6/uL Hgb 11.9 L (14.0-18.0) g/dl Hct 36.6 L (42.0-52.0) % MCV 83.2 (80.0-98.0) fL MCH 27.0 (27.0-33.0) pg MCHC 32.5 (31.0-36.0) g/dl RDW 14.2 (11.0-16.0) % Plt Count 191 (160-400) X10*3/uL MPV 9.9 (9.4-12.4) fL Immature Gran % (Auto) 0.3 (0.0-0.4) % Neut % (Auto) 71.7 (45-73) % Lymph % (Auto) 20.9 (20-40) % [place] % (Auto) 5.6 (2-11) % Eos % (Auto) 0.9 (0-4) % Baso % (Auto) 0.6 (0-2) % Lymph # (Auto) 1.4 (1.2-4.9) X10*3/uL [place] # (Auto) 0.4 (0.1-1.2) X10*3/uL Eos # (Auto) 0.1 (0.0-0.4) X10*3/uL Baso # (Auto) 0.0 (0.0-0.2) X10*3/uL Abs Immat Gran (auto) 0.02 (0.00-0.03) X10*3/uL Absolute Neuts (auto) 4.6 (2.0-8.3) x10*3/uL Absolute Nucleated RBC 0.000 (0.0-0.012) X10*3/uL Nucleated RBC % (auto) 0.0 (0.0-0.2) /100WBC PT 14.9 H (10.9-12.4) SEC INR 1.3 H (0.9-1.1) Sodium 140 (135-145) mmol/L Potassium 4.3 (3.3-5.1) mmol/L Chloride 112 H (96-108) mmol/L Carbon Dioxide 22 (22-29) mmol/L Anion Gap 10 L (12-20) BUN 20 H (9-16) mg/dL Creatinine 0.77 (0.5-1.4) mg/dL Estim Creat Clear Calc 176.8 Estimated GFR > 60 Random Glucose 97 (60-115) mg/dL Calcium 8.1 L (8.4-10.2) mg/dL Total Bilirubin 1.7 H (0.0-1.0) mg/dL Direct Bilirubin 0.4 (0.0-0.5) mg/dL AST 16 (5-37) U/L ALT 28 (0-40) U/L Alkaline Phosphatase 64 (39-117) U/L Troponin I High Sens 4.3 (<3.5-35.0) ng/L B-Natriuretic Peptide 1578 H (<100) pg/mL Total Protein 5.9 L (6.5-8.0) g/dL Albumin 3.6 (3.5-5.0) g/dL Lipase 17 (8-78) U/L Independent Interpretation I performed an independent interpretation of an: EKG Interpretation: EKG sinus tachycardic at 107bpm, qt/qtc 366/488, no ST elevation or depression. Radiology Impression Discussion of test interpretation with radiology: I have reviewed the radiologist's reading. Radiologist Impression: [address] [address] [address] Scan Report Signed Patient: Bruno Stoddard MR#: [id number] : 1970 Acct:[id number] Age/Sex: 53 / M ADM Date: 06/04/24 Loc: .ED Attending Dr: Ordering Physician: Loren Collins Date of Service: 06/04/24 Procedure(s): CT angio chest PE protocol Accession Number(s): [id number] cc: CODI TAMEZ MD; Loren Collins~ Report Number: [id number]: Total DLP = 587.00 mGy-cm EXAMINATION: CT ANGIOGRAM CHEST CLINICAL INFORMATION: Pleuritic chest pain COMPARISON: None available. TECHNIQUE: Multiple axial images were obtained through the chest after the administration of 50 mL of Omnipaque 350 intravenous contrast. Extensive vascular post-processing including two-dimensional and three-dimensional reformatted images were created and reviewed on an independent workstation. This CT examination was performed using dose optimization techniques as appropriate, variously including the following: *Automated exposure control *Adjustment of mA and/or kV according to patient size (this includes techniques or standardized protocols for targeted exams where dose is matched to indication/reason for exam; i.e. extremities or head) *Use of iterative reconstruction technique DLP: Findings 7 mGy-cm FINDINGS: Vascular: The pulmonary artery and its branches are widely patent. There is no intraluminal filling defect. The thoracic aorta is of normal caliber. Heart size enlarged. Mild pericardial effusion seen. No coronary artery calcification seen. Nonvascular: The reactive small lymph nodes in the mediastinum largest measuring 1.5 cm in the para-aortic space. The thyroid gland is not visualized. Central trachea and bronchi are widely patent. The lungs are expanded with mild groundglass density in both upper and lower lobes but no consolidation seen. There is bilateral small pleural effusions. No abnormal axillary lymph nodes seen. The chest wall is unremarkable. Visualized liver, spleen, gallbladder and pancreas is unremarkable no acute aggressive lytic or sclerotic process seen. CT/CT angio chest PE protocol IMPRESSION: No evidence of PE. No evidence of aortic aneurysm. Small bilateral pleural effusions. Nonspecific groundglass attenuation seen in both lower lobes and upper lobes likely airway disease. No acute consolidation seen. Fleischner guidelines were followed. Electronically signed by: Alcon Hogan MD 06/04/2024 02:40 PM [facility] Dictated By: Alcon Hogan MD [address] [address] XRay Report Signed Patient: Bruno Stoddard MR#: [id number] : 1970 Acct:[id number] Age/Sex: 53 / M ADM Date: 06/04/24 Loc: HO.ED Attending Dr: Ordering Physician: Generic ED Physician Date of Service: 06/04/24 Procedure(s): XR chest 1V Accession Number(s): [id number] cc: CODI TAMEZ MD; Generic ED Physician~ EXAMINATION: XR CHEST CLINICAL INFORMATION: bradycardia COMPARISON: None available. TECHNIQUE: Frontal view of the chest was obtained. FINDINGS: The lungs are well-expanded and clear. The heart size is borderline normal. Mild prominence of perihilar markings is seen but no suspicion for congestion. There is no pleural effusion. No gross bony abnormality. XR/XR chest 1V IMPRESSION: Borderline heart size. Mildly increased bilateral perihilar markings but no congestion seen. Electronically signed by: Alcon Hogan MD 06/04/2024 11:43 AM [facility] Dictated By: Alcon Hogan MD Signed By: <Electronically signed by Alcon Hogan MD in OV> Discharge Plan Discharge Clinical Impression: CHF (congestive heart failure) Qualifiers: Heart failure type: unspecified Heart failure chronicity: acute Qualified Code(s): I50.9 - Heart failure, unspecified Patient Disposition: Admitted As Inpatient Interventions: Admission Worksheet (ED) Last Done: 06/05/24 06:37 Discharge Date/Time: 06/05/24 09:09
--- OUTSIDE RECORDS SUMMARY | 2024-06-04 12:11 | XMS_ITS | Continuity of Care Document ---
Author Name [facility] Organization [facility] Care Team Providers Care Director Of Tax Services Name Role Phone DOD-KS Unavailable Unavailable Problems Combined list of problems [...] [facility] Cluster headache (SNOMED CT 529601703) [facility] Exposure to potentially hazardous substance (SCT [id number]) Active Condition Dec 02 Entered By: MANUELA ARTEAGA Comment: Entered automatically through [facility] Problem List documentation program [facility] HTN - Hypertension (SCT 72187321) Active Condition [facility]omnia Active Condition [facility] Obesity (SNOMED CT 352026008) Active Condition [facility] Recurrent major depression Active Condition [facility] HYPERTROPHY OF BREAST Inactive Condition 11/17/2004 [facility] ROUTINE MEDICAL EXAM Inactive Condition 11/17/2004 [facility] Diagnosis: ICD-10-CM F33.1 Major depressive disorder, recurrent, moderate Active Diagnosis [facility] Diagnosis: ICD-10-CM E66.9 Obesity, unspecified Active Diagnosis [facility] Diagnosis: ICD-10-CM F51.01 Primary insomnia [facility] Diagnosis: ICD-10-CM G43.019 Migraine w/o aura, intractable, without status migrainosus Active Diagnosis [facility] Diagnosis: ICD-10-CM H93.19 Tinnitus, unspecified ear Active [facility] Diagnosis: ICD-10-CM Z02.89 Encounter for other administrative examinations Active Diagnosis [facility] Diagnosis: ICD-10-CM F41.1 Generalized anxiety disorder Active [facility] Diagnosis: ICD-10-CM Z23 Encounter for immunization Active Diagnosis [facility] Diagnosis: ICD-10-CM F50.81 Binge eating disorder Active Diagnosis [facility] Diagnosis: ICD-10-CM I10 Essential (primary) hypertension Active [facility] [place] [facility] Diagnosis: ICD-10-CM G47.30 Sleep apnea, unspecified Active Diagnosis [facility] [place] [facility] Medications Combined list of outpatient medications from [...] FOR VITAMIN SUPPLEME NTATION ORAL ACTIVE 12/02/2024 [id number] DELIA CHRISTIANSEN 2023 100 [facility] NORTRIPTYLI NE HCL 25MG CAP TAKE ONE CAPSULE BY MOUTH AT BEDTIME HEADACHE ORAL 05/23/2024 [id number] 4 GARRY ROCHA 2022 90 [facility] SERTRALINE HCL 50MG TAB TAKE ONE-HALF TABLET BY MOUTH EVERY MORNING FOR 3 DAYS, THEN TAKE ONE TABLET EVERY MORNING FOR DEPRESSI ON ORAL ACTIVE 06/04/2024 [id number] 4 Iggy CHIU 2023 29 [facility] SUMATRIPTAN SUCCINATE 100MG TAB TAKE ONE TABLET BY MOUTH DIRECTED FOR MIGRAINE HEADACHE AT ONSET OF HEADACHE ; MAY REPEAT IN 2 HOURS IF FIRST DOSE IS NOT EFFECTIV E ORAL 05/23/2024 [id number] 4 GARRY ROCHA 2022 18 [facility] SUMATRIPTAN SUCCINATE 50MG TAB TAKE ONE TABLET BY MOUTH DIRECTED FOR MIGRAINE HEADACHE AT ONSET OF HEADACHE ; MAY REPEAT IN 2 HOURS IF FIRST DOSE IS NOT EFFECTIV E ORAL DISCONT INUED (EDIT) 03/13/2024 [id number] 3 DELIA CHRISTIANSEN 2022 9 [facility] TRAZODONE HCL 100MG TAB TAKE ONE TABLET BY MOUTH AT BEDTIME AND TAKE ONE TABLET AT BEDTIME NEEDED FOR INSOMNIA ORAL ACTIVE 05/26/2025 [id number] 4 Iggy CHIU 2023 60 [facility] Immunizations Combined list of available immunizations from the Department of Defense and Veterans Affairs facilities. Immunization Series Date Given Administered By Site Reaction Lot Number CVX Code Drug House Worker General Status Comments Source COVID-19 (MODERNA), MRNA, LNP-S, PF, 50 MCG/0.5 ML (AGES 12+ YEARS) 2023 ZANVETTOR,CESAR BLESSING LEFT DELTO ID [id number] complet ed [facility] FREE 2022 CESAR OSBORNE LEFT DELTO ID [id number] 150 complet ed [facility] [...] Jun 25, 2023 08:42 AM Reporting Lab: [place] [facility] [place] [facility] [address] [facility] [address] Performing Lab: [facility] [place] [facility] [address] [facility] [address] [place] [facility] [place] [facility] BASIC METABOLIC PANEL (fasting) GLUCOSE [MASS/VOLUM E] IN SERUM OR PLASMA 95 mg/dL 65 - 100 08/26 Specimen Type: SERUM No comment entered. Ordering Provider: ROBERTO CHRISTIANSEN Report Released Date/Time: Jun 25, 2023 08:42 AM Reporting Lab: [facility] [place] [facility] [address] [facility] [address] Performing Lab: [facility] [place] [facility] [address] [facility] [address] [facility] BASIC METABOLIC PANEL (fasting) SODIUM [MOLES/VOLU ME] IN SERUM OR PLASMA 142 mmol/L 135 - 145 08/26 Specimen Type: SERUM No comment entered. Ordering Provider: ROBERTO CHRISTIANSEN Report Released Date/Time: Jun 25, 2023 08:42 AM Reporting Lab: [facility] [place] [facility] [address] [facility] [address] Performing Lab: [place] [facility] [place] [address] [address] [facility] BASIC METABOLIC PANEL (fasting) POTASSIUM [MOLES/VOLU ME] IN SERUM OR PLASMA 4.3 mmol/L 3.5 - 5.0 08/26 Specimen Type: SERUM No comment entered. Ordering Provider: ROBERTO CHRISTIANSEN Report Released Date/Time: Jun 25, 2023 08:42 AM Reporting Lab: [facility] [place] [address] [address] Performing Lab[facility] [place] [facility] [address] [facility] [address] [facility] BASIC METABOLIC PANEL (fasting) CHLORIDE [MOLES/VOLU ME] IN SERUM OR PLASMA 107 mmol/L 100 - 110 08/26 Specimen Type: SERUM No comment entered. Ordering Provider: ROBERTO CHRISTIANSEN Report Released Date/Time: Jun 25, 2023 08:42 AM Reporting Lab: [facility] [place] [address] [address] Performing Lab: [facility] [place] [facility] [address] [facility] [address] [facility] BASIC METABOLIC PANEL (fasting) CARBON DIOXIDE, TOTAL [MOLES/VOLU ME] IN SERUM OR PLASMA 25 meq/L 20 - 30 08/26 Specimen Type: SERUM No comment entered. Ordering Provider: ROBERTO CHRISTIANSEN Report Released Date/Time: Jun 25, 2023 08:42 AM Reporting Lab: [facility] [address] [address] Performing Lab: [phone] [place] [address] BASIC METABOLIC PANEL (fasting) CREATININE [MASS/VOLUM E] IN SERUM OR PLASMA 0.68 mg/dL 0.50 - 1.40 08/26 Specimen Type: SERUM No comment entered. Ordering Provider: ROBERTO CHRISTIANSEN Report Released Date/Time: Jun 25, 2023 08:42 AM Reporting Lab: [facility] [address] [address] Performing Lab: [facility] [address] [address] [facility] BASIC METABOLIC PANEL (fasting) GLOMERULAR FILTRATION RATE/1.73 SQ M.PREDICTED [VOLUME RATE/AREA] IN SERUM, PLASMA OR BLOOD BY CREATININE- BASED FORMULA (CKD-EPI 2020) >90mL/ min 60 08/26 Specimen Type: SERUM No comment entered. Ordering Provider: ROBERTO CHRISTIANSEN Report Released Date/Time: Jun 25, 2023 08:42 AM Reporting Lab: [facility] [address] [address] Performing Lab: [facility] [address] [address] [facility] CBC LEUKOCYTES [#/VOLUME] IN BLOOD BY AUTOMATED COUNT 5.18 10*3/u L 4.50 - 11.00 08/26 Specimen Type: BLOOD No comment entered. Ordering Provider: ROBERTO CHRISTIANSEN Report Released Date/Time: Jun 25, 2023 08:42 AM Reporting Lab: [facility] [place] [facility] [address] [facility] [address] Performing Lab: [facility] [address] [facility] [address] [facility] [place] [facility] CBC ERYTHROCYTE S [#/VOLUME] IN BLOOD BY AUTOMATED COUNT 5.10 10*6/u L 4.23 - 5.66 08/26 Specimen Type: BLOOD No comment entered. Ordering Provider: ROBERTO CHRISTIANSEN Report Released Date/Time: Jun 25, 2023 08:42 AM Reporting Lab: [facility] [place] [facility] [address] [facility] [address] Performing Lab: [facility] [place] [facility] [address] [facility] [address] [facility] [place] [facility] CBC HEMOGLOBIN [MASS/VOLUM E] IN BLOOD 14.3 g/dL 12.8 - 17 08/26 Specimen Type: BLOOD No comment entered. Ordering Provider: ROBERTO CHRISTIANSEN Report Released Date/Time: Jun 25, 2023 08:42 AM Reporting Lab: [facility] [place] [facility] [address] [facility] [address] Performing Lab: [facility] [place] [facility] [address] [facility] [address] [facility] [place] [facility] CBC HEMATOCRIT [VOLUME FRACTION] OF BLOOD BY AUTOMATED COUNT 43.5 39.2 - 50.4 08/26 Specimen Type: BLOOD No comment entered. Ordering Provider: ROBERTO CHRISTIANSEN Report Released Date/Time: Jun 25, 2023 08:42 AM Reporting Lab: [facility] [place] [facility] [address] [facility] [address] Performing Lab: [facility] [place] [facility] [address] [facility] [address] [facility] [place] [facility] CBC MCV [ENTITIC VOLUME] BY AUTOMATED COUNT 85.3 fL 82 - 99 08/26 Specimen Type: BLOOD No comment entered. Ordering Provider: ROBERTO CHRISTIANSEN Report Released Date/Time: Jun 25, 2023 08:42 AM Reporting Lab: [facility] [address] [facility] [address] Performing Lab: [facility] [address] [facility] [address] [facility] [place] [facility] CBC MCHC [MASS/VOLUM E] BY AUTOMATED COUNT 32.9 g/dL 30.8 - 35.1 08/26 Specimen Type: BLOOD No comment entered. Ordering Provider: ROBERTO CHRISTIANSEN Report Released Date/Time: Jun 25, 2023 08:42 AM Reporting Lab: [facility] [place] [facility] [address] [facility] [address] Performing Lab: [facility] [place] [facility] [address] [facility] [address] [facility] [place] [facility] CBC PLATELETS [#/VOLUME] IN BLOOD BY AUTOMATED COUNT 179 10*3/u L 140 - 360 08/26 Specimen Type: BLOOD No comment entered. Ordering Provider: ROBERTO CHRISTIANSEN Report Released Date/Time: Jun 25, 2023 08:42 AM Reporting Lab: [facility] [place] [facility] [address] [facility] [address] Performing Lab: [facility] [place] [facility] [address] [facility] [address] [facility] [place] [facility] CBC ERYTHROCYTE DISTRIBUTIO N WIDTH [RATIO] BY AUTOMATED COUNT 12.8 12.0 - 16.0 08/26 Specimen Type: BLOOD No comment entered. Ordering Provider: ROBERTO CHRISTIANSEN Report Released Date/Time: Jun 25, 2023 08:42 AM Reporting Lab: [facility] [address] [facility] [address] Performing Lab: [facility] [address] [facility] [address] [facility] [place] [facility] CBC MCH [ENTITIC MASS] BY AUTOMATED COUNT 28.0 pg 26.2 - 32.6 03/26 /2024 Specimen Type: BLOOD No comment entered. Ordering Provider: ROBERTO CHRISTIANSEN Report Released Date/Time: Jun 25, 2023 08:42 AM Reporting Lab: [facility] [address] [facility] [address] Performing Lab: [facility] [address] [facility] [address] [facility] FOLATE FOLATE [MASS/VOLUM E] IN SERUM OR PLASMA 11.13 ng/mL 5.2 08/26 Specimen Type: SERUM No comment entered. Ordering Provider: ROBERTO CHRISTIANSEN Report Released Date/Time: Jun 25, 2023 08:42 AM Reporting Lab: [facility] [address] [facility] [address] Performing Lab: [facility] [address] [facility] [address] [facility] HEMOGLOBI N A1C PANEL HEMOGLOBIN A1C/HEMOGLO [...] Jun 25, 2023 08:42 AM Reporting Lab: [facility] [address] [facility] [address] Performing Lab: [address] [address] [facility] MAGNESIUM MAGNESIUM [MASS/VOLUM E] IN SERUM OR PLASMA 2.0 mg/dL 1.6 - 2.6 08/26 Specimen Type: SERUM No comment entered. Ordering Provider: ROBERTO CHRISTIANSEN Report Released Date/Time: Jun 25, 2023 08:42 AM Reporting Lab: [facility] [address] [facility] [address] Performing Lab: [facility] [address] [facility] [address] [facility] PSA PROSTATE SPECIFIC AG [MASS/VOLUM E] IN SERUM OR PLASMA 1.35 ng/mL 0.00 - 4.00 08/26 Specimen Type: SERUM No comment entered. Ordering Provider: ROBERTO CHRISTIANSEN Report Released Date/Time: Jun 25, 2023 08:42 AM Reporting Lab: [facility] [address] [facility] [address] Performing Lab: [facility] [address] [facility] [address] [facility] THYROID T4 FREE(FT4) THYROXINE (T4) FREE [MASS/VOLUM E] IN SERUM OR PLASMA 0.90 ng/dL 0.6 - 1.6 08/26 Specimen Type: SERUM No comment entered. Ordering Provider: ROBERTO CHRISTIANSEN Report Released Date/Time: Jun 25, 2023 08:42 AM Reporting Lab: [facility] [place] [facility] [address] [facility] [address] Performing Lab: [facility] [place] [facility] [address] [facility] [address] [facility] [place] [facility] TSH THYROTROPIN [UNITS/VOLU ME] IN SERUM OR PLASMA 1.38 u[IU]/ mL 0.35 - 5.00 08/26 Specimen Type: SERUM No comment entered. Ordering Provider: ROBERTO CHRISTIANSEN Report Released Date/Time: Jun 25, 2023 08:42 AM Reporting Lab: [facility] [place] [facility] [address] [facility] [address] Performing Lab: [facility] [address] [facility] [address] [facility] VITAMIN B12 COBALAMIN (VITAMIN B12) [MASS/VOLUM E] IN SERUM OR PLASMA 469 pg/mL 200 - 900 08/26 Specimen Type: SERUM No comment entered. Ordering Provider: ROBERTO CHRISTIANSEN Report Released Date/Time: Jun 25, 2023 08:42 AM Reporting Lab: [facility] [address] [facility] [address] Performing Lab: [facility] [address] [facility] [address] [facility] VITAMIN D (25-OH) 25-HYDROXYV ITAMIN D3 [MASS/VOLUM E] IN SERUM OR PLASMA 16 ng/mL 20 - 50 08/26 L Specimen Type: SERUM No comment entered. Ordering Provider: ROBERTO CHRISTIANSEN Report Released Date/Time: Jun 25, 2023 08:42 AM Reporting Lab: [facility] [place] [facility] [address] [facility] [address] Performing Lab: [facility] [place] [facility] [address] [facility] [address] [facility] [place] [facility] Vital Signs Combined list of inpatient and outpatient Vital Signs from Department of Defense and Veterans Affairs, ranging from 12 months to all on record, depending upon the facility. Vital Sign Value Date Comments Source SYSTOLIC BLOOD PRESSURE 135 12/02/19 24 15:14:21 [facility] [place] [facility] DIASTOLIC BLOOD PRESSURE 89 024 15:14:21 [facility] [place] [facility] PULSE OXIMETRY 96 12/02/2023 15:14:21 [facility] [id number] 12/24 [facility] En[facility] [id number] Diagnos is: ICD-10- CM Z02.89 Encount er for other adminis trative examina tions<b r/> DIONNA LOUIS 12/25 [facility] En[facility] [id number] 12/31 [facility] Encounter [id number] ISRAEL PRESTON I 01/03 [facility] En[facility] [id number] 01/09 [facility] En[facility] [id number] 03/06 [facility] En[facility] [id number] 03/13 [facility] OFFICE O/P EST LOW 20-29 MIN [id number] Diagnos is: ICD-10- CM G47.30 Sleep apnea, unspeci fied
Carmen CHRISTIANSEN 03/13 [facility] En[facility] [id number] 04/24 [facility] En[facility] [id number] DORIS OSBORNE 04/24 [facility] En[facility] [id number] 04/26 [facility] [place] OFF/OP CONSLTJ NEW/[place] HI 55 [id number] Diagnos is: ICD-10- CM G43.019 Migrain e w/o aura, intract able, without status migrain osus
GARRY ROCHA 05/23 [facility] [facility] En[facility] [id number] 05/23 [facility] En[facility] [id number] 06/13 [facility] OFFICE O/P EST MOD 30 MIN [id number] Diagnos is: ICD-10- CM I10 Essenti al (primar y) hyperte nsion<b r/> Carmen CHRISTIANSEN 06/25 [facility] PSYCH DIAGNOSTIC EVALUATION [id number] Diagnos is: ICD-10- CM H93.19 Tinnitu s, unspeci fied ear<br/ > Tyrell TAPIA Amanda 07/01 [facility] MTMS BY PHARM ADDL 15 MIN [id number] Diagnos is: ICD-10- CM E66.9 Obesity , unspeci fied
GDULA,JANETH A 07/09 [facility] MTMS BY PHARM EST 15 MIN [id number] Diagnos is: ICD-10- CM E66.9 Obesity , unspeci fied
GDULA,JANETH A 07/30 [facility] Outpatient Encounter [id number] 08/07 [facility] [place] Outpatient Encounter [id number] 08/12 [facility] [place] OFFICE O/P EST MOD 30 MIN [id number] Diagnos is: ICD-10- CM G43.019 Migrain e w/o aura, intract able, without status migrain osus
GARRY ROCHA 08/21 [facility] Outpatient Encounter [id number] 08/21 [facility] PSYTX W PT 60 MINUTES [id number] Diagnos is: ICD-10- CM H93.19 Tinnitu s, unspeci fied ear<br/ > BLAYNE ALVES 08/21 [facility] Out[facility] En[facility] [id number] 08/29 [facility] PSYTX W PT 45 MINUTES [id number] Diagnos is: ICD-10- CM H93.19 Tinnitu s, unspeci fied ear<br/ > BLAYNE ALVES 09/05 [facility] En[facility] [id number] 09/05 [facility] PSYTX W PT 45 MINUTES [id number] Diagnos is: ICD-10- CM F51.01 Primary insomni a
RASTA COVARRUBIASNEY M 09/18 [facility] En[facility] [id number] 09/24 [facility] PSYTX W PT 45 MINUTES [id number] Diagnos is: ICD-10- CM F50.81 Binge eating disorde r
BLAYNE ALVES 10/03 [facility] PSYTX W PT 45 MINUTES [id number] Diagnos is: ICD-10- CM F50.81 Binge eating disorde r
BLAYNE ALVES 10/17 [facility] [place] OFFICE O/P EST MOD 30 MIN [id number] Diagnos is: ICD-10- CM G43.019 Migrain e w/o aura, intract able, without status migrain osus
AJ,GARRY POLLY 10/29 [facility] En[facility] [id number] 10/29 [facility] PSYTX W PT 45 MINUTES [id number] Diagnos is: ICD-10- CM H93.19 Tinnitu s, unspeci fied ear<br/ > ALISON TRAN 10/31 [facility] PSYTX W PT 45 MINUTES [id number] Diagnos is: ICD-10- CM F50.81 Binge eating disorde r
ALISON TRAN 11/14 [facility] Outpatient Encounter [id number] DORIS OSBORNE 11/20 [facility] PSYTX W PT 45 MINUTES [id number] Diagnos is: ICD-10- CM F50.81 Binge eating disorde r
ALISON TRAN 11/27 [facility] OFFICE O/P EST LOW 20 MIN [id number] Diagnos is: ICD-10- CM I10 Essenti al (primar y) hyperte nsion<b r/> Carmen CHRISTIANSEN 12/01 [facility] PSYTX W PT 45 MINUTES [id number] Diagnos is: ICD-10- CM F50.81 Binge eating disorde r
ALISON TRAN 12/19 [facility] Out[facility] Encounter [id number] 01/02 [facility] PSYTX W PT 45 MINUTES [id number] 1. Diagnos is: ICD-10- CM H93.19 Tinnitu s, unspeci fied ear<br/ > ALISON TRAN 01/16 [facility] PSYTX W PT 45 MINUTES [id number] Diagnos is: ICD-10- CM F51.01 Primary insomni a
ALISON TRAN 01/30 [facility] En[facility] [id number] 02/10 [facility] Encounter [id number] 02/10 [facility] PSYTX W PT 45 MINUTES [id number] Diagnos is: ICD-10- CM F51.01 Primary insomni a
ALISON TRAN 02/27 [facility] En[facility] [id number] 03/09 [facility] OFF/OP EST OCTOBER X REQ PHY/QHP [id number] Diagnos is: ICD-10- CM Z23 Encount er for immuniz ation<b r/> DORIS OSBORNE 03/09 [facility] PSYTX W PT 45 MINUTES [id number] Diagnos is: ICD-10- CM F41.1 General ized anxiety disorde r
JUAN ALBERTO MARTINEZ 03/13 [facility] Outpatient Encounter [id number] 1. Diagnos is: ICD-10- CM Z02.89 Encount er for other adminis trative examina tions<b r/> FAMILIA JENKINS 03/24 [facility] [facility] PSYTX W PT 45 MINUTES [id number] Diagnos is: ICD-10- CM H93.19 Tinnitu s, unspeci fied ear<br/ > RASTA COVARRUBIASNEY M 03/27 [place] [facility] [place] [facility] OFFICE O/P EST MOD 30 MIN [id number] Diagnos is: ICD-10- CM G43.019 Migrain e w/o aura, intract able, without status migrain osus
GARRY ROCHA 03/31 [place] [facility] [place] [facility] Outpatient Encounter [id number] 1.03/31 [place] [facility] [place] [facility] [place] [facility] PSYTX W PT W E/M 30 MIN [id number] 1. Diagnos is: ICD-10- CM F51.01 Primary insomni a
Sydnie BEDOYA BRENNAN B 04/01 [place] [facility] [place] [facility] [place] [facility] Outpatient Encounter [id number] 04/08 [place] [facility] [place] [facility] [place] [facility] PSYTX W PT 45 MINUTES [id number] 1. Diagnos is: ICD-10- CM E66.9 Obesity , unspeci fied
ALISON TRAN 04/24 [place] [facility] [place] [facility] [place] [facility] Outpatient Encounter [id number] [place] [facility] [facility] [place] [facility] PSYCH DIAG EVAL W/MED SRVCS [id number] Diagnos is: ICD-10- CM F33.1 Major depress suzanne disorde r, recurre nt, moderat e
MILLY CHIU 05/04 [facility] [place] [facility] [place] [facility] PSYTX W PT 45 MINUTES [id number] Diagnos is: ICD-10- CM F33.1 Major depress suzanne disorde r, recurre nt, moderat e
ALISON TRAN 05/15 [facility] [place] [facility] [facility] OFFICE O/P EST SF 10 MIN [id number] Diagnos is: ICD-10- CM F33.1 Major depress suzanne disorde r, recurre nt, moderat e
MI[facility]IU [facility] Social History Combined list of available smoking, tobacco, and other social history from Department of Defense and Veterans Affairs facilities. Social History Type Response Date Comment Source Tobacco smoking status [facility] VA-TOBACCO FORMER USER 04/01/2024 [facility] [place] [facility] History of tobacco use VA-TOBACCO QUIT 15 YRS OR MORE 04/01/2024 [facility] History of tobacco use VA-TOBACCO QUIT 15 YRS OR MORE 01/09/2023 [facility] History of tobacco use LIFETIME NON-TOBACCO USER 01/04/2017 [facility] History of tobacco use QUIT TOBACCO USE > 7 YEARS AGO 12/26/2015 quit in 1997 [facility] History of tobacco use HISTORY OF SMOKING 10/27/2003 Smoke free 6 years [facility] History of tobacco use HISTORY OF SMOKING 01/02/2002 [facility] History of tobacco use HISTORY OF SMOKING 01/14/2001 non smoker 4 years [facility] Plan of Care List of future care activities from Department of [facility] facilities. Additional future care activities may be listed in the Assessment and Plan section. Date/Time Care Activity Care Activity Detail Facili ty 06/12/2024 AMBULATORY - PSYCHIATRY AMBULATORY - PSYC HIATRY [facility] 06/23/2024 AMBULATORY - PSYCHIATRY AMBULATORY - PSYC OKATRY [facility] 07/07/2024 AMBULATORY - NEUROLOGY AMBULATORY - NEURO [facility]
--- OUTSIDE RECORDS SUMMARY | 2024-06-04 12:15 | XMS_ITS ---
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 Date/Time Encounter Type Encounter Description Reason Provider Source May 04, 2024 03:10 PM PSYCH DIAG EVAL W/MED SRVCS TELEPHONE ICD-10-CM F33.1 Major depressive disorder, recurrent, moderate SANDHYA CHIU E Encounter Template Text not used by [place] Assessments - Encounter Diagnoses This section includes the primary and secondary diagnoses documented for the Encounter. Date/Time Primary/Secondary Diagnosis Diagnosis Name Provider Source May 04, 2024 03:10 PM PRIMARY Major depressive disorder, recurrent, moderate SANDHYA CHIU [place] [facility] [place] [facility] May 04, 2024 03:10 PM SECONDARY Generalized anxiety disorder SANDHYA CHIU [facility] Plan of Treatment: Future Appointments (+ 6 months) and Future Tests (+/- 45 days) The Plan of Treatment section includes future care activities for the patient from all [place] [facility]. This section includes future appointments and future orders which are active, pending or scheduled. Future Appointments This section includes appointments that were scheduled to occur 6 months from the date of the Encounter, up to a maximum of 20 appointments. The data comes from all [place] treatment facilities. Appointment Date/Time Appointment Type Appointme nt Facility Name May 15, 2024 02:00 PM AMBULATORY - PSYCHIATRY [facility] May 25, 2024 03:00 PM AMBULATORY - PSYCHIATRY [facility] Jun 12, 2024 02:00 PM [facility] Jun 23, 2024 03:30 PM AMBULATORY - PSYCHIATRY [facility] Jul 07, 2024 01:30 PM [facility] Jul 07, 2024 01:30 PM AMBULATORY - NEUROLOGY [facility] Active, Pending, and Scheduled Orders This section includes a listing of several types of active, pending, and scheduled orders, including clinic medications orders, diagnostic test orders, procedure orders and consult orders; where the start date of the order is 45 days before the date of the Encounter or 45 days after the date of theEncounter. The data comes from all [facility]. Test Date/Time Test Type Test Details Facility Name Apr 07, 2024 10:17 AM Consult Order COMMUNITY CARE-OPTOMETRY ROUTINE EYE EXAM Cons [employer] [facility] Social History: Smoking Status (Most current) and Tobacco Use (All prior to encounter date) This section includes the most current, and the historical, smoking and tobacco- related health factors from the [place] facility where the Encounter took place. Current Smoking Status This section includes the most current smoking, or tobacco-related health factor, from the [place] facility where the Encounter took place. Date/Time Current Smoking Status Comment Facil ity Apr 01, 2024 08:30 AM [place]-TOBACCO FORMER USER [facility] Tobacco Use History This section includes a history of the smoking, or tobacco-related health factors, that were collected on or before the date of the Encounter. The data comes from the [place] facility where the Encounter took place. Date/Time Smoking Status/Tobac co Use Comment Facility Apr 01, 2024 08:30 AM [place]-TOBACCO QUIT 15 YRS OR MORE [facility] Jan 09, 2023 05:09 PM VA-TOBACCO FORMER USER [facility] Jan 09, 2023 05:09 PM VA-TOBACCO QUIT 15 YRS OR MORE [facility] Jan 04, 2017 07:42 AM LIFETIME NON-TOBACCO USER [facility] Dec 26, 2015 09:20 AM QUIT TOBACCO USE > 7 YEARS AGO quit in 1997 [facility] October 27, 2003 03:29 PM HISTORY OF SMOKING Smoke free 6 years [facility] Jan 02, 2002 08:56 AM HISTORY OF SMOKING [facility] Jan 02, 2002 08:56 AM QUIT TOBACCO USE > 7 YEARS AGO [facility] Jan 14, 2001 11:25 AM HISTORY OF SMOKING non smoker 4 years [facility] Encounter Notes: All associated encounter notes This section contains the clinical notes associated to the Encounter. Date/Time Encounter Note(s) Provider Source May 05, 2024 11:22 AM PSYCHIATRY CONSULT: LOCAL TITLE: CONSULT REPORT/MENTAL HEALTH/PSYCHIATRY STANDARD TITLE: PSYCHIATRY CONSULT DATE OF NOTE: MAY 05, 2024@11:22 ENTRY DATE: MAY 05, 2024@11:23:55 AUTHOR: VIKTOR CHIU EXP COSIGNER: URGENCY: STATUS: COMPLETED Time Spent: 45 minutes Patient consented to telehealth telephone visit today for intake appointment as we were unable to get [facility] platform to work. MENTAL HEALTH NOTE: [place] had telehealth telephone visit today for intake appointment for 45 min for initial appointment. Two forms of identification was used. CC: I am looking to [facility] to the [facility] for my [facility] health medications. HPI: Bruno has been working with a Psychiatrist in [place] for a little over a year now for his mental health issues. He says that last year he was under a lot of pressure and was struggling with depression and his was threatening divorce if he didn't get himself some help. He says at the time this threat of the loss of his family added to his depression and he was having suicidal thoughts then. He says he did end up getting help and has felt better. He says he has suicidal thinking at times still (last thought occurred a month ago). He says he has more passive thoughts of suicide ( people would be better off without me. ) He denies any active plans for suicide. He denies any active intent also for self-harm. Bruno denies any issues with alcohol or other drugs of abuse. He says his marriage is better than last year, but he and his are basically roommates. He and his sleep in separate rooms in their home. They've been for 20 years. He isn't close with his older son (25 years old) who lives with Bruno and his and younger son. Bruno believes this stems from his not being as good of a father to him as he should have been. Bruno says his younger son who is 12 years old and he have a closer relationship. 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 He doesn't get much exercise. He reports his depressive symptoms include: low energy, low motivation, decreased will to do anything, and increased appetite and poor sleep. He has not been tried on any other medications besides lexapro and trazodone. Bruno reports a depression level daily of around 7 or 8 out of 10. He has been on the lexapro and trazodone for more than a year now. He says the lexapro dose was increased a couple of months ago to 20 mg. He doesn't feel the lexapro is working for him. He describes some blurry vision at times. He isn't sure what this is from, but has an appointment for an eye exam soon. Bruno reports his depression and anxiety started about a year after he got out of the . He isn't sure why then. Bruno reports the trazodone is doing its job. He is sleeping better. He says the sleep apnea that he deals with causes him problems. The CPAP machine he uses at night to treat it isn't comfortable to wear the whole night. He struggles with keeping it on. He knows he needs to wear it and tries because his oxygen sats. drop low because of it multiple times at night. He has accepted that this is a necessary thing for him to do if he wants to get good sleep. He doesn't like it though. Bruno says that he has been in therapy recently and really realizing the reasons behind some of his issues. He feels he is making good progress in therapy toward a better understanding of himself. Bruno would like to try a different antidepressant from the lexapro that he currently takes. SUBSTANCE ABUSE: Caffeine: Tobacco: Cocaine: denies any Opioid: denies any Alcohol: 1-2 drinks a month. Cannabis: denies any Past Psych History: - Prior Diagnosis: Depression, Anxiety, Insomnia, ? binge eating disorder - Current Psychiatrist: [facility] ([place]) - Current Therapist: Karsten Mulligan [place] at the [place]. - Adobe Developer: n/a - Prior Hospitalizations: denies any - Prior Medications: lexapro and trazodone - Prior Suicide Attempts: denies any prior attempts. Plan a year ago was to drive his car off the road and over an embankment (he never acted on this then). He says that he is too scared to act on the thought. Bruno denies any suicidal thinking in the last month. He describes more passive SI that occurred last a month ago. -Guns and Weapons at home: Family Psychiatric History: - Psych: denies - Substance Use: denies - Suicide: denies Social History: - Currently Lives: In [place] with and adult son (25 years old) and 12 year old son. - Marriage/Children: to current 20 years. Has one adult son and one preteen son. - Education: [employer] - Finances: Stable - Legal: denies - : 3. MEDICAL HISTORY: Hypertension, JW, Tinnitus, cluster headaches, nephrolithiasis, chronic sinusitis, obesity. ALLERGIES: NKDA Active and Recently Outpatient Medications (excluding Supplies): [...] Medications MEDICATION ADHERENCE: takes medications most days; says he has been taking 20 mg of lexapro for the last 2 months. MEDICATION SIDE EFFECTS: none OBJECTIVE:recent labs:LAB RESULTS LAST 1440 HRS - NONE FOUND Weight: 386 lb [175.09 kg] (12/02/2023 15:14) BMI: 52.5 MENTAL STATUS EXAM: Orientation and Consciousness: Alert and fully oriented. Behavior: calm and cooperative. Speech: Normal rate and volume. Mood/Affect: ok. Affect: constricted. Thought Production/Content: Logical, sequential & relevant to discussion. Perceptual Disturbances: None. Attention, concentration and memory based on answers to session questions: Good. Insight/Judgment: Both good. SI/HI: Passive SI a month ago. Denies recent thoughts of self-harm. No HI elicited. Ability to Provide informed consent: Yes. ASSESSMENT:53 year old WHITE MALE, presents today for initial visit as a transfer from Becca Cantor who is retiring. TREATMENT PLAN/ DISCUSSION/ RATIONALE: DIAGNOSIS: Major Depressive Disorder, Recurrent, Moderate without psychotic features, Anxiety Disorder Unspecified 1.::: Medication management: Reviewed medications with Bruno and his prior history. Reviewed uniform intake note as well in CPRS. Bruno has been receiving his mental health care from a Psychiatrist in the community in [place]. Bruno is wanting to switch care from the community to the [facility] for [facility] and for his mental health medications. We discussed his perception of the usefulness of lexapro for his depression. He has been on the 20 mg dose for the last two months and hasn't felt it has been helpful to him. His depression remains at a 7-8 out of 10. We discussed options today to either augment the lexapro with another medication or to switch from the lexapro to something different. Bruno would prefer to switch to something different. We discussed zoloft as an option for its activating properties given his depressive symptoms. He will reduce the lexapro to 10 mg daily for now until he receives the zoloft in the mail. He will stop the 10 mg of lexapro when he receives the zoloft and the next day will start with 25 mg of zoloft. He will continue on the sertraline 25 mg daily for three days, then he will increase to 50 mg of sertraline at that point. The risks, benefits, side effects and alternatives to sertraline discussed with Bruno and his questions answered. Will plan to see him again in two weeks to discuss how he is doing with the changes made today to his medications. He will continue in therapy with Karsten Mulligan. He will let me know if he doesn't tolerate the sertraline for any reason. He will let me know also if his suicidal thinking returns. Next Visit: in 2 weeks. Patient is aware of how to access [facility] open access clinic in [facility] during weekdays for immediate mental health needs if I am not available. Patient has capacity to make his own medication decisions at present time. I asked the patient to come for sooner appointment if the patient does not like the effect of psychiatric medication or if has side effects with psychiatric medication. ::: Psychotropic meds were reconciled; and no [...] in the community (including Crisis Line, 911, [place] National Suicide Prevention Lifeline: 9-282-207-AKQL). Patient is instructed to contact me should [...] ER in the event of an emergency. BMI>30/>24.99 High Risk: Patient declines to discuss weight management. Patient declined weight discussion. Discussed revisiting at a future visit. Medication Reconciliation: Outpatient: Has the patient been taking medications as documented in the EMLR? No: Discrepencies were identified. See below. Essential Medication List for Review used to complete this medication reconciliation. INCLUDED IN THIS LIST: Alphabetical list of active outpatient prescriptions dispensed from this [facility] (local) and dispensed from another [place] or [facility] facility (remote) as well as inpatient orders (local, pending and active), local clinic medications, locally documented non-VA medications, and local prescriptions that have or been discontinued in the past 90 days. - Discrepancies were identified, addressed, and discussed with the patient/caregiver at this encounter. Discrepancies: taking 20 mg of lexapro - All changes in medications, including all non-VA/Herbal/OTC medications were entered into CPRS. - If there were any medications the patient should no longer take, they were discontinued. - The patient/caregiver was instructed to update this list, discard old lists, and take this list to the next appointment, whether with a VA or non-VA provider. /blair/ VIKTOR CHIU MD PSYCHIATRIST Signed: 05/05/2024 11:58 VIKTOR CHIU [place] [facility]
[2024-06-04] MEDS: iohexoL 350 MG/ML 100 ML INFUS..BTL IV (14:27)
--- NOTE | 2024-06-04 14:55 | PC.NURSE ---
pt was sleeping, when he woke he said he was feeling increased shortness of breath. SpO2 88%. Placed on 2L NC or comfort and better O2 sat. Increased to 95%
[2024-06-04] MEDS: Furosemide 40 MG/4 ML VIAL IVPUSH (15:26)
--- NOTE | 2024-06-04 15:37 | P.HPHOSP_ITS ---
History of Present Illness Date of Service: 06/04/24 Chief Complaint: sob 53M PMH morbid obesity, JW, mood disorder, insomnia presented with shortness breath. Patient reports several months of increasing dyspnea on exertion, midsternal burning sensation on exertion, decreased exercise tolerance. Also has a vague feeling of abdominal distention, denies lower extremity edema. Reports subjective fevers since COVID about 1 month prior to presentation. Denies cough. Reports positive orthopnea requiring several pillows to sleep. On night prior to presentation felt that he was going to , only relief was with CPAP so he came to ED. In ED hypoxic to 80% on room air, BNP elevated 1578, CTA negative for PE but showed enlarged heart, mild pericardial effusion, mild ground-glass density in both upper and lower lobes, bilateral small pleural effusions. Review of Systems 2 Review of Systems: Yes all other systems are reviewed and are negative [facility] Medical History (Updated 06/04/24 @ 15:42 by Getachew Mathews MD) JW (obstructive sleep apnea) Mood disorder Social History Smoked in Last 30 Days: No Advance Directives: No Advance Directives Information Provided: Yes Do you have a plan to hurt others: No Plan Meds Allergies Allergy/AdvReac Type Severity Reaction Status Date / Time No Known Allergies Allergy Verified 06/04/24 10:54 Home Medications ?Medication ?Instructions ?Recorded ?Confirmed ?Last Taken ?Type escitalopram oxalate 10 mg tablet 10 mg PO DAILY 06/04/24 Unknown History trazodone 100 mg tablet 200 mg PO BEDTIME PRN Sleep 06/04/24 06/04/24 Unknown History Physical Exam 2 Vital Signs and Narrative: Vital Signs: Last Vital Signs Temp 98.2 F 06/04/24 14:53 Pulse 103 H 06/04/24 14:53 Resp 22 H 06/04/24 14:53 BP 125/93 H 06/04/24 14:53 Pulse Ox 91 L 06/04/24 15:12 O2 Del Method Room Air 06/04/24 15:12 O2 Flow Rate 2 06/04/24 14:53 BMI result Body Mass Index 46.2 General: AO X 3, no acute distress Resp: CTA bilateral, no accessory muscles used CVS: S1,S2,RRR, mild pedal edema GI: soft, non tender, non distended Neuro: motor grossly intact, alert Psych: appropriate affect, appropriate insight Results Labs 06/04/24 11:30 06/04/24 11:30 Labs: Laboratory Results - last 24 hr 06/04/24 11:30 MCV 83.2 MCH 27.0 MCHC 32.5 RDW 14.2 Plt Count 191 MPV 9.9 Immature Gran % (Auto) 0.3 Neut % (Auto) 71.7 Lymph % (Auto) 20.9 [place] % (Auto) 5.6 Eos % (Auto) 0.9 Baso % (Auto) 0.6 Lymph # (Auto) 1.4 [place] # (Auto) 0.4 Eos # (Auto) 0.1 Baso # (Auto) 0.0 Abs Immat Gran (auto) 0.02 Absolute Neuts (auto) 4.6 Absolute Nucleated RBC 0.000 Nucleated RBC % (auto) 0.0 PT 14.9 H INR 1.3 H Anion Gap 10 L Estim Creat Clear Calc 176.8 Estimated GFR > 60 Random Glucose 97 Calcium 8.1 L Total Bilirubin 1.7 H Direct Bilirubin 0.4 AST 16 ALT 28 Alkaline Phosphatase 64 Troponin I High Sens 4.3 B-Natriuretic Peptide 1578 H Total Protein 5.9 L Albumin 3.6 Lipase 17 Imaging Radiologist's Impressions: Impressions Chest X-Ray 06/04/24 11:15 IMPRESSION: Borderline heart size. Mildly increased bilateral perihilar markings but no congestion seen. Electronically signed by: Alcon Hogan MD 06/04/2024 11:43 AM EST RP Chest CTA 06/04/24 14:26 IMPRESSION: No evidence of PE. No evidence of aortic aneurysm. Small bilateral pleural effusions. Nonspecific groundglass attenuation seen in both lower lobes and upper lobes likely airway disease. No acute consolidation seen. Fleischner guidelines were followed. Electronically signed by: Alcon Hogan MD 06/04/2024 02:40 PM EST RP Assessment and Plan (1) CHF (congestive heart failure): Qualifiers: Heart failure chronicity: acute Heart failure type: unspecified Q ualified Code(s): I50.9 - Heart failure, unspecified Status: Acute Plan 53M PMH morbid obesity, JW, mood disorder, insomnia presented with shortness breath Acute hypoxic respiratory failure secondary to acute unspecified CHF IV Lasix, check echo, cardio eval JW CPAP at night Morbid obesity Check VBG rule out obesity hypoventilation Mood disorder, insomnia Reports not really taking Lexapro and trazodone consistently we will hold off for now DVT prophylaxis with Lovenox Full Code Patient with CHF requiring IV Lasix and supplemental oxygen therefore expected require at least 2 midnights inpatient Quality Stroke Does the patient have a stroke diagnosis?: No VTE Prior VTE?: No VTE Risk Level:: Medical - moderate - high VTE Device Contraindication: Treatment Not Indicated VTE Drug Contraindication: N/A - Med Ordered
--- NOTE | 2024-06-04 15:50 | PHA.MEDREC ---
Addendum entered by Shanita Sams RPh 06/04/24 15:59: Reviewed by [facility] Original Note: Pharmacy Consult ? Medication Reconciliation Pharmacy has completed the medication reconciliation. Spoke to patient to confirm med list. Patient states he will be changing from Escitalopram 10 daily to Zoloft, however he hasn't started yet.
--- NOTE | 2024-06-04 16:23 | PC.NURSE ---
1000ml output of urine thus far
[2024-06-04 16:56] LABS: VBG Base Excess 1.7 mmol/L; VBG HCO3 27 mmol/L (22-26); VBG pCO2 44 mmHg; VBG pH 7.39 (7.32-7.43); VBG pO2 34 mmHg
[2024-06-04 16:56] LABS: Venous Blood Gas Refer to POC result
[2024-06-04 17:15] LABS: Troponin-I High Sensitivity 6.7 ng/L (<3.5-35.0)
[2024-06-04] MEDS: 0.9 % Sodium Chloride Flush 3 ML SYRINGE IVFLUSH (17:51)
--- NOTE | 2024-06-04 18:37 | PC.NURSE ---
contacted Dr Mathews about lasix ordered for 1800. pt got dose at 1530. says hold for now
--- NOTE | 2024-06-04 19:03 | PC.NURSE ---
additional 1500ml urine output
[2024-06-04 19:19] LABS: Influenza A PCR NEGATIVE (Negative); Influenza B PCR NEGATIVE (Negative); Resp Syncy Virus RNA Qual PCR NEGATIVE (Negative); SARS COV2 PCR INHOUSE NEGATIVE (Negative)
[2024-06-05] VITALS (10 sets, daily range): BP systolic 106–148; BP diastolic 66–99; PULSE 94–111; RESP 11–20; TEMP 36–37.3; O2SAT 91–98
[2024-06-05] MEDS: 0.9 % Sodium Chloride Flush 3 ML SYRINGE IVFLUSH ×4 (01:24→20:05)
[2024-06-05 05:00] LABS: Hematocrit 38.4 % (42.0-52.0); Hemoglobin 12.1 g/dl (14.0-18.0); Mean Corpuscular HGB Conc 31.5 g/dl (31.0-36.0); Mean Corpuscular Hemoglobin 26.3 pg (27.0-33.0); Mean Corpuscular Volume 83.5 fL (80.0-98.0); Platelet Count 174 X10*3/uL (160-400); Red Cell Distribution Width 14.4 % (11.0-16.0)
[2024-06-05 05:16] LABS: Anion Gap 11 (12-20); Blood Urea Nitrogen 19 mg/dL (9-16); Calcium 8.5 mg/dL (8.4-10.2); Carbon Dioxide 26 mmol/L (22-29); Chloride 108 mmol/L (96-108); Creatinine Clr Calc Pharmacy 172.4; Estimated Glomerular Filt Rate > 60; Glucose Random 98 mg/dL (60-115); Potassium 4.1 mmol/L (3.3-5.1); Sodium 141 mmol/L (135-145)
--- NOTE | 2024-06-05 07:00 | CA_ITS ---
Transthoracic Echocardiogram Patient (Last, First, Middle): Bruno Stoddard, Gender: Male Date of : 1970 Age: 53 Procedure Date: 06/05/2024 Procedure Type: Transthoracic Echocardiogram Location: [facility] [place] Height: 185.42 cm Weight: 158.76 kg BSA: 2.73 m2 Heart Rate: 102 bpm BP: 125 / 93 mmHg Room Service Clerk: Referring MD: Getachew Mathews MD Production Department Supervisor: Aston Humphreys MD Symptoms: chf Study Quality: Adequate w contrast ECG Rhythm: Sinus tachycardia Conclusions: - 1. Moderately dilated left ventricle with severely reduced LV ejection fraction of 15-20% 2. Mildly dilated right-sided chambers with preserved RV contractility 3. Severely dilated left atrium 4. At least mild eccentric mitral regurgitation due to leaflet restriction 5. Upper limits of normal RV systolic pressure with significantly elevated right atrial pressures 6. [id number]-umldeopv pericardial effusion without tamponade Findings Procedure Information Contrast agent, definity, is being given per protocol without apparent complications. Left Ventricle Moderately increased left ventricular cavity size. There is normal left ventricular wall thickness. The left ventricular systolic function is severely decreased. The visually estimated ejection fraction is between 15 20%. There is severe global hypokinesis. Diastolic function is indeterminate on the basis of available data. Right Ventricle Mildly increased right ventricular cavity size. There is normal right ventricular systolic function. Atria The left atrium is severely dilated. There is no evidence of interatrial shunt. The right atrium is mildly dilated. Aortic Valve Normal aortic valve structure and function. There is no aortic valve stenosis. There is no aortic valve regurgitation. Mitral Valve Normal mitral valve structure and function. There is mild mitral valve regurgitation. The mitral regurgitation jet is directed posteriorly. There is no mitral valve stenosis. Pulmonic Valve The pulmonic valve is likely normal. Tricuspid Valve Normal tricuspid valve structure. There is mild tricuspid valve regurgitation. The right ventricular systolic pressure is 39 mmHg. Significantly elevated right atrial pressure. There is no evidence of pulmonary hypertension. Great Vessels All visible segments of the aorta are normal in size. The pulmonary artery was not well visualized. There is no dilatation of the ascending aorta measuring 3.30 cm. Venous The inferior vena cava is moderately dilated and does not collapse with inspiration. Pericardium/Pleural vfjbr-fc-nuzzzraw pericardial effusion, more prominent near the left ventricle without evidence of tamponade Prior Study Comparison No prior study available for comparison. Measurements 2D Linear Measurements IVSd: 1.06 0.6-0.9/0.6-1.0 cm LVIDd: 6.42 3.9-5.3/4.2-5.9 cm LVIDd Index: 2.35 2.4-3.2/2.2-3.1 cm/m2 LVIDs: 5.64 2.0-3.6 cm LVPWd: 1.05 0.7-1.1 cm LA Diam: 5.50 2.7-3.8/3.0-4.0 cm LAIDs Index: 2.01 1.5-2.3 cm/m2 LV Mass: 370.28 67-162/88-224 g LV Mass Index: 135.63 43-95/49-115 g/m2 LVOT Diam: 2.30 3.0+(-)1.3 cm 2D Systolic Function EF 4C: 24.70 >55% EF 2C: 16.80 >55% EF BiP: 20.20 >55% Mitral Valve MV Pk E: 1.00 MV Decel Time: 133.00 E'Lateral: 13.30 E'Medial: 4.79 E/E' Med: 20.90 E/E' Lat: 7.50 PHT: 39.00 MVA PHT: 5.64 Decel Osborne: 7.56 Aortic Valve AoV Pk Rei: 1.18 AoV Mn Rei: 0.77 AoV VTI: 0.21 AoV Pk Grad: 6.00 Aov Mn Grad: 3.00 SHE Cont.VTI: 2.55 LVOT LVOT Pk Rei: 0.68 LVOT Mn Rei: 0.49 LVOT VTI: 0.13 LVOT Pk Grad: 2.00 LVOT Mn Grad: 1.00 LVOT Diam: 2.30 LVOT Area: 4.15 Diastolic Function MV Pk E: 1.00 E'Medial: 4.79 E/E' Med: 20.90 E' Laterial: 13.30 E/E' Lat: 7.50 Right Ventricle TAPSE (mm): 20.10 Tricuspid Valve TR Pk Rei: 2.44 TR Pk Grad: 24.00 RA Press: 15.00 RVSP: 39.00 Great Vessels Aorta Sinus of Valsalva: 3.40 2.0-3.5 cm Ao Asc: 3.30 2.1-3.4 cm Pulmonary Valve PV Pk Rei: 0.86 Peak PV Grad: 3.00 Updated in Other Vendor System with Status of Final Aston Humphreys MD electronically signed on 06/05/2024 12:10:56 PM with status of Final
[2024-06-05] MEDS: Enoxaparin Sodium 40 MG/0.4 ML SYRINGE SUBCUT (08:15)
[2024-06-05] MEDS: Furosemide 40 MG/4 ML VIAL IVPUSH ×2 (08:15→18:01)
--- NOTE | 2024-06-05 09:45 | P.CONCA_ITS ---
History of Present Illness History of Present Illness Date of Service: 06/05/24 Requesting physician: Getachew Mathews Consult reason: congestive heart failure Chief complaint: CHF Narrative: I was consulted to see Nicanor in cardiology consultation today for new onset symptoms suggestive of congestive heart failure. 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 Prior history of obstructive sleep apnea on CPAP, morbid obesity, mood disorder. Patient says last year in May he had COVID. Recovered from it. He would then started noticing some shortness of breath while he was playing with his young son and then he would start out laughing. He would get short of breath. He thought this was unusual. I have did not pay much attention. Starting summer he started noticing exertional chest burning when he would be doing heavy work like mowing the lawn or running up a flight of stairs. He again thought this was related to stomach issues and did not pay much attention or till his primary care physician. He continued to get progressive exertional shortness of breath. She did not notice any leg swelling. He then again got COVID in the beginning of May. Since then his symptoms took it down turned then he started having progressively more symptoms of shortness of breath. Saturday night he said he could not breathe while lying down and felt like he was going to . He uses CPAP and navigated the night and then next morning called his primary care's office although and was advised to seek emergency care and he drove himself to the emergency room. In the Emergency was noted to be hypoxemic with initial oxygen saturation in the 80% which improved with oxygen therapy but clinical findings consistent with congestive heart failure with chest x-ray finding showing bilateral effusions and ground-glass opacities. CT scan of chest was done to rule out pulmonary embolism which was negative with showed cardiomegaly. BNP was significantly elevated. EKG shows diffuse loss of R- waves. He has no prior cardiac history is. He denies any history of hypertension although says blood pressure is borderline. No history of diabetes. No family history of premature coronary artery disease. He said generally he has been healthy. Limited review of bedside echo preliminary shows severely reduced LV systolic function. Review of Systems 2 Constitutional: Constitutional: Reports fatigue Cardiovascular: Cardiovascular: Reports Abdominal Distension, Reports chest pain with activity, Denies lightheadedness, Denies Loss of Consciousness, Reports dyspnea on exertion and Reports orthopnea Respiratory: Respiratory: Denies cough and Reports dyspnea on exertion Gastrointestinal: Gastrointestinal: Reports no additional gastrointestinal complaints Musculoskeletal: Musculoskeletal: Reports no additional musculoskeletal complaints Integumentary/Breasts: Skin/Breast: Reports system reviewed and no additional complaints, except as docu Neurologic: Reports system reviewed and no additional complaints, except as documented Psychiatric: Psychiatric: Reports no additional psychiatric complaints Endocrine: Endocrine: Reports no additional endocrine complaints and Reports fatigue Allergic/Immunologic: Allergic/Immunologic: Reports no additional allergic/immunologic complaints [facility] Past Medical History Medical History (Updated 06/05/24 @ 09:52 by Aston Humphreys MD) JW (obstructive sleep apnea) Mood disorder Social History Social History Patient Tobacco Use Status: Never used Tobacco Meds Allergies Allergy/AdvReac Type Severity Reaction Status Date / Time No Known Allergies Allergy Verified 06/04/24 10:54 Active Medications: Current Medications Acetaminophen (Acetaminophen 325 Mg Tablet) 650 mg PO Q6H PRN PRN Reason: Pain, Mild 1-3,fever,headache Calcium Carbonate (Calcium Carbonate 750 Mg Tab.Chew) 750 mg PO Q4H PRN PRN Reason: Heartburn Enoxaparin Sodium (Enoxaparin Sodium 40 Mg/0.4 Ml Syringe) 40 mg SUBCUT Q24H [facility] Last Admin: 06/05/24 08:15 Dose: 40 mg Furosemide (Furosemide 40 Mg/4 Ml Vial) 40 mg IVPUSH BID@0900,1800 KELLY; Protocol Last Admin: 06/05/24 08:15 Dose: 40 mg Magnesium Hydroxide (Milk Of Magnesia 30 Ml Oral.Susp) 30 ml PO DAILY PRN PRN Reason: Constipation Melatonin (Melatonin 3 Mg Tablet) 6 mg PO BEDTIME PRN PRN Reason: Insomnia Sodium Chloride (0.9 % Sodium Chloride Flush 3 Ml Syringe) 3 ml IVFLUSH QSHIFT [facility] Last Admin: 06/05/24 08:15 Dose: 3 ml Home Medications ?Medication ?Instructions ?Recorded ?Confirmed ?Last Taken ?Type escitalopram oxalate 10 mg tablet 10 mg PO DAILY 06/04/24 06/04/24 06/01/24 History trazodone 100 mg tablet 200 mg PO BEDTIME PRN Sleep 06/04/24 06/04/2424 History Physical Exam 2 Vital Signs: Vital Signs: Last Vital Signs Temp 97.0 F 06/05/24 09:34 Pulse 101 H 06/05/24 09:34 Resp 16 06/05/24 09:34 BP 136/85 06/05/24 09:34 Pulse Ox 97 06/05/24 09:34 O2 Del Method Nasal Cannula 06/05/24 09:34 O2 Flow Rate 3 06/05/24 09:34 BMI result Body Mass Index 46.2 Const: General: cooperative, alert, awake and in distress mild and respiratory Nutritional Appearance: obese morbidly obese Orientation/consciousness: p atient oriented x3 Limitations: no limitations HEENT: Head: Yes normocephalic and Yes atraumatic Neck: Neck: Yes trachea midline, Yes supple and Yes JVD Resp: Effort & Inspection: normal respiratory effort Auscultation: rales bilateral 1/[address] up Cardio: Jugular venous distension: JVD Palpation: abnormal PMI displaced PMI Rate: regular rate and tachycardic Rhythm: regular rhythm Heart sounds: S1 normal heart sound present, S2 normal heart sound present, no click, Gallop heart sound present S3 gallop, no murmurs and no rubs GI: Inspection: Yes distended and Yes obesity Auscultation: normal bowel sounds Skin: General skin exam: no rashes or lesions noted Neuro: General: patient oriented x3 and no focal motor deficits Extrem: General: No clubbing, No cyanosis and Yes edema Psych: Appearance: grossly normal Affect: Anxious affect present Objective Labs and Meds 06/05/24 04:48 06/05/24 04:48 Lab results: Laboratory Results - last 24 hr 06/04/24 06/04/24 06/04/24 11:30 16:44 16:51 WBC 6.5 RBC 4.40 L Hgb 11.9 L Hct 36.6 L MCV 83.2 MCH 27.0 MCHC 32.5 RDW 14.2 Plt Count 191 MPV 9.9 Immature Gran % (Auto) 0.3 Neut % (Auto) 71.7 Lymph % (Auto) 20.9 [place] % (Auto) 5.6 Eos % (Auto) 0.9 Baso % (Auto) 0.6 Lymph # (Auto) 1.4 [place] # (Auto) 0.4 Eos # (Auto) 0.1 Baso # (Auto) 0.0 Abs Immat Gran (auto) 0.02 Absolute Neuts (auto) 4.6 Absolute Nucleated RBC 0.000 Nucleated RBC % (auto) 0.0 PT 14.9 H INR 1.3 H VBG pH 7.39 VBG pCO2 44 VBG pO2 34 VBG HCO3 27 H VBG O2 Saturation 51.0 VBG Base Excess 1.7 Sodium 140 Potassium 4.3 Chloride 112 H Carbon Dioxide 22 Anion Gap 10 L BUN 20 H Creatinine 0.77 Estim Creat Clear Calc 176.8 Estimated GFR > 60 Random Glucose 97 Calcium 8.1 L Magnesium Total Bilirubin 1.7 H Direct Bilirubin 0.4 AST 16 ALT 28 Alkaline Phosphatase 64 Troponin I High Sens 4.3 6.7 D B-Natriuretic Peptide 1578 H Total Protein 5.9 L Albumin 3.6 Lipase 17 Influenza Type A (PCR) Influenza Type B (PCR) RSV RNA Qual (PCR) SARS-CoV-2 RNA (RT-PCR) 06/04/24 06/05/24 18:36 04:48 WBC 7.0 RBC 4.60 Hgb 12.1 L Hct 38.4 L MCV 83.5 MCH 26.3 L MCHC 31.5 RDW 14.4 Plt Count 174 MPV 10.0 Immature Gran % (Auto) Neut % (Auto) Lymph % (Auto) [place] % (Auto) Eos % (Auto) Baso % (Auto) Lymph # (Auto) [place] # (Auto) Eos # (Auto) Baso # (Auto) Abs Immat Gran (auto) Absolute Neuts (auto) Absolute Nucleated RBC 0.000 Nucleated RBC % (auto) 0.0 PT INR VBG pH VBG pCO2 VBG pO2 VBG HCO3 VBG O2 Saturation VBG Base Excess Sodium 141 Potassium 4.1 Chloride 108 Carbon Dioxide 26 Anion Gap 11 L BUN 19 H Creatinine 0.79 Estim Creat Clear Calc 172.4 Estimated GFR > 60 Random Glucose 98 Calcium 8.5 Magnesium 2.0 Total Bilirubin Direct Bilirubin AST ALT Alkaline Phosphatase Troponin I High Sens B-Natriuretic Peptide Total Protein Albumin Lipase Influenza Type A (PCR) NEGATIVE Influenza Type B (PCR) NEGATIVE RSV RNA Qual (PCR) NEGATIVE SARS-CoV-2 RNA (RT-PCR) NEGATIVE EKG shows sinus tachycardia with inferior Q-waves and poor R-wave progression. Imaging Radiologist's impression: Impressions Chest X-Ray 06/04/24 11:15 IMPRESSION: Borderline heart size. Mildly increased bilateral perihilar markings but no congestion seen. Electronically signed by: Alcon Hogan MD 06/04/2024 11:43 AM EST RP Chest CTA 06/04/24 14:26 IMPRESSION: No evidence of PE. No evidence of aortic aneurysm. Small bilateral pleural effusions. Nonspecific groundglass attenuation seen in both lower lobes and upper lobes likely airway disease. No acute consolidation seen. Fleischner guidelines were followed. Electronically signed by: Alcon Hogan MD 06/04/2024 02:40 PM EST RP Assessment and Plan (1) Decompensated heart failure: Status: Acute New onset decompensated congestive heart failure in this middle-aged man with only risk factor of obesity and prior sleep apnea with limited initial preliminary evaluation of LV ejection fraction shows severely reduced LV ejection fraction with dilated LV. His symptoms exertional chest burning or concerning but could be related to cardiomyopathy process. However ischemic etiology needs to be ruled out. Once he is stabilized and decongested and treated for his heart failure and optimized will need cardiac catheterization. Discussed with him the pathophysiology of congestive heart failure as well as process of workup as well as pathophysiology of cardiomyopathy in details. He was a little anxious about it but understood management plan and agrees. For now he has been diuresing well and is feeling better. I will continue with IV diuresis with Lasix. Strict intake and output chart needs to be pursued. Would start him on Entresto for neurohormonal modulation as well as afterload reduction. Will also start her on Jardiance as neurohormonal modulator and the other diuretic. Continue monitor renal function closely and replace electrolytes as needed. Continue trend BNP. I would also give him aspirin and statin therapy given his high likelihood of underlying coronary artery disease although it is also possible this could be cardiomyopathy process related to COVID or other viral illness. Continue CPAP therapy at nighttime. Will follow closely. Greater than 40 minutes was spent in managing his care. Procedures Date of Service Date of Service: 06/05/24
--- NOTE | 2024-06-05 09:46 | HO.PM.IMPN ---
Subjective Subjective Date of Service: 06/05/24 Interval History: Some improvement in shortness of breath Physical Exam Vital Signs: Vital Signs: Last Vital Signs Temp 97.0 F 06/05/24 09:34 Pulse 101 H 06/05/24 09:34 Resp 16 06/05/24 09:34 BP 136/85 06/05/24 09:34 Pulse Ox 97 06/05/24 09:34 O2 Del Method Nasal Cannula 06/05/24 09:34 O2 Flow Rate 3 06/05/24 09:34 BMI result Body Mass Index 46.2 General: AO X 3, no acute distress Resp: CTA bilateral, no accessory muscles used CVS: S1,S2,RRR GI: soft, non tender, non distended Neuro: motor grossly intact, alert Psych: appropriate affect, appropriate insight Pedal edema improved Objective Data Active Medications Acetaminophen (Acetaminophen 325 Mg Tablet) 650 mg PO Q6H PRN PRN Reason: Pain, Mild 1-3,fever,headache Calcium Carbonate (Calcium Carbonate 750 Mg Tab.Chew) 750 mg PO Q4H PRN PRN Reason: Heartburn Enoxaparin Sodium (Enoxaparin Sodium 40 Mg/0.4 Ml Syringe) 40 mg SUBCUT Q24H [facility] Last Admin: 06/05/24 08:15 Dose: 40 mg Documented By: KRYSTINA Furosemide (Furosemide 40 Mg/4 Ml Vial) 40 mg IVPUSH BID@0900,1800 [facility]; Protocol Last Admin: 06/05/24 08:15 Dose: 40 mg Documented By: KRYSTINA Magnesium Hydroxide (Milk Of Magnesia 30 Ml Oral.Susp) 30 ml PO DAILY PRN PRN Reason: Constipation Melatonin (Melatonin 3 Mg Tablet) 6 mg PO BEDTIME PRN PRN Reason: Insomnia Sodium Chloride (0.9 % Sodium Chloride Flush 3 Ml Syringe) 3 ml IVFLUSH QSHIFT [facility] Last Admin: 06/05/24 08:15 Dose: 3 ml Documented By: KRYSTINA Labs 06/05/24 04:48 06/05/24 04:48 Labs: Laboratory Results - last 24 hr 06/04/24 06/04/24 06/04/24 11:30 16:44 16:51 MCV 83.2 MCH 27.0 MCHC 32.5 RDW 14.2 Plt Count 191 MPV 9.9 Immature Gran % (Auto) 0.3 Neut % (Auto) 71.7 Lymph % (Auto) 20.9 [place] % (Auto) 5.6 Eos % (Auto) 0.9 Baso % (Auto) 0.6 Lymph # (Auto) 1.4 [place] # (Auto) 0.4 Eos # (Auto) 0.1 Baso # (Auto) 0.0 Abs Immat Gran (auto) 0.02 Absolute Neuts (auto) 4.6 Absolute Nucleated RBC 0.000 Nucleated RBC % (auto) 0.0 PT 14.9 H INR 1.3 H VBG pH 7.39 VBG pCO2 44 VBG pO2 34 VBG HCO3 27 H VBG O2 Saturation 51.0 VBG Base Excess 1.7 Anion Gap 10 L Estim Creat Clear Calc 176.8 Estimated GFR > 60 Random Glucose 97 Calcium 8.1 L Magnesium Total Bilirubin 1.7 H Direct Bilirubin 0.4 AST 16 ALT 28 Alkaline Phosphatase 64 Troponin I High Sens 4.3 6.7 D B-Natriuretic Peptide 1578 H Total Protein 5.9 L Albumin 3.6 Lipase 17 Influenza Type A (PCR) Influenza Type B (PCR) RSV RNA Qual (PCR) SARS-CoV-2 RNA (RT-PCR) 06/04/24 06/05/24 18:36 04:48 MCV 83.5 MCH 26.3 L MCHC 31.5 RDW 14.4 Plt Count 174 MPV 10.0 Immature Gran % (Auto) Neut % (Auto) Lymph % (Auto) [place] % (Auto) Eos % (Auto) Baso % (Auto) Lymph # (Auto) [place] # (Auto) Eos # (Auto) Baso # (Auto) Abs Immat Gran (auto) Absolute Neuts (auto) Absolute Nucleated RBC 0.000 Nucleated RBC % (auto) 0.0 PT INR VBG pH VBG pCO2 VBG pO2 VBG HCO3 VBG O2 Saturation VBG Base Excess Anion Gap 11 L Estim Creat Clear Calc 172.4 Estimated GFR > 60 Random Glucose 98 Calcium 8.5 Magnesium 2.0 Total Bilirubin Direct Bilirubin AST ALT Alkaline Phosphatase Troponin I High Sens B-Natriuretic Peptide Total Protein Albumin Lipase Influenza Type A (PCR) NEGATIVE Influenza Type B (PCR) NEGATIVE RSV RNA Qual (PCR) NEGATIVE SARS-CoV-2 RNA (RT-PCR) NEGATIVE Assessment and Plan (1) CHF (congestive heart failure): Status: Acute Plan 53M PMH morbid obesity, JW, mood disorder, insomnia presented with shortness breath Acute hypoxic respiratory failure secondary to acute systolic CHF Prelim echo with reduced EF, follow up report Cardio appreciated continue IV Lasix, add Entresto and Jardiance JW CPAP at night Morbid obesity Weight loss recommended Mood disorder, insomnia Reports not really taking Lexapro and trazodone consistently will hold off for now DVT prophylaxis with Lovenox Full Code reason for continued hospitalization: Ongoing IV diuresis Quality Stroke Does the patient have a stroke diagnosis?: No VTE Prior VTE?: No VTE Risk Level:: Medical - moderate - high VTE Device Contraindication: Treatment Not Indicated VTE Drug Contraindication: N/A - Med Ordered
--- NOTE | 2024-06-05 10:19 | MHC.CM.PN ---
PT REPORTS HE LIVES WITH HIS , TWO KIDS, AND MOTHER HE IS INDEPENDENT WITH CARE AND USES A CPAP HE SAYS HE HAS A HCP NAMING HIS , COPY REQUESTED PCP: CODI TAMEZ DCP: HOME NO SERVICES VIA SELF TRANSPORT
--- NOTE | 2024-06-05 11:17 | MHC.CM.PN ---
Second IMM 06/05/24, Pt has been medically cleared for DC, he will go home via BLS, plan is self care.
[2024-06-05] MEDS: Empagliflozin 25 MG TABLET PO (11:25)
[2024-06-05] MEDS: Sacubitril/Valsartan 24/26 1 TAB TABLET PO ×2 (11:25→20:07)
[2024-06-06] VITALS (7 sets, daily range): BP systolic 107–136; BP diastolic 65–86; PULSE 92–100; RESP 14–20; TEMP 36.2–37.6; O2SAT 89–98
[2024-06-06 06:24] LABS: Hematocrit 40.1 % (42.0-52.0); Mean Corpuscular HGB Conc 32.4 g/dl (31.0-36.0); Mean Corpuscular Hemoglobin 26.7 pg (27.0-33.0); Mean Corpuscular Volume 82.3 fL (80.0-98.0); Mean Platelet Volume 10.2 fL (9.4-12.4); Platelet Count 190 X10*3/uL (160-400); Red Blood Count 4.87 X10*6/uL (4.60-5.80); White Blood Count 6.3 X10*3/uL (4.8-10.8)
--- NOTE | 2024-06-06 06:35 | PC.NURSE ---
0614: 25 beats of vtach with a small break with another 12 more beats of vtach- MD bennett notified
[2024-06-06 06:41] LABS: Anion Gap 12 (12-20); Blood Urea Nitrogen 15 mg/dL (9-16); Calcium 8.4 mg/dL (8.4-10.2); Carbon Dioxide 26 mmol/L (22-29); Chloride 107 mmol/L (96-108); Creatinine Clr Calc Pharmacy 181.6; Estimated Glomerular Filt Rate > 60; Glucose Random 92 mg/dL (60-115); Magnesium 2.1 mg/dL (1.6-2.6); Potassium 4.1 mmol/L (3.3-5.1); Sodium 141 mmol/L (135-145)
[2024-06-06] MEDS: Furosemide 40 MG/4 ML VIAL IVPUSH ×2 (08:25→17:37)
[2024-06-06] MEDS: Empagliflozin 25 MG TABLET PO (08:25)
[2024-06-06] MEDS: 0.9 % Sodium Chloride Flush 3 ML SYRINGE IVFLUSH ×2 (08:25→17:37)
[2024-06-06] MEDS: Sacubitril/Valsartan 24/26 1 TAB TABLET PO ×2 (08:25→20:27)
--- NOTE | 2024-06-06 09:56 | HO.PM.IMPN ---
Subjective Subjective Date of Service: 06/06/24 Interval History: Some improvement in shortness of breath Physical Exam Vital Signs: Vital Signs: Last Vital Signs Temp 98.9 F 06/06/24 07:24 Pulse 98 06/06/24 07:24 Resp 14 06/06/24 07:24 BP 127/78 06/06/24 07:24 Pulse Ox 98 06/06/24 07:24 O2 Del Method Nasal Cannula 06/06/24 07:24 O2 Flow Rate 3 06/06/24 07:24 BMI result Body Mass Index 46.2 General: AO X 3, no acute distress Resp: CTA bilateral, no accessory muscles used CVS: S1,S2,RRR GI: soft, non tender, non distended Neuro: motor grossly intact, alert Psych: appropriate affect, appropriate insight Pedal edema improved Objective Data Active Medications Acetaminophen (Acetaminophen 325 Mg Tablet) 650 mg PO Q6H PRN PRN Reason: Pain, Mild 1-3,fever,headache Calcium Carbonate (Calcium Carbonate 750 Mg Tab.Chew) 750 mg PO Q4H PRN PRN Reason: Heartburn Empagliflozin (Empagliflozin 25 Mg Tablet) 25 mg PO DAILY [facility] Last Admin: 06/06/24 08:25 Dose: 25 mg Documented By: CHRISTOPHE Enoxaparin Sodium (Enoxaparin Sodium 40 Mg/0.4 Ml Syringe) 40 mg SUBCUT Q24H [facility] Last Admin: 06/06/24 08:35 Dose: Not Given Documented By: CHRISTOPHE Non-Admin Reason: Patient Refused Furosemide (Furosemide 40 Mg/4 Ml Vial) 40 mg IVPUSH BID@0900,1800 [facility]; Protocol Last Admin: 06/06/24 08:25 Dose: 40 mg Documented By: CHRISTOPHE Magnesium Hydroxide (Milk Of Magnesia 30 Ml Oral.Susp) 30 ml PO DAILY PRN PRN Reason: Constipation Melatonin (Melatonin 3 Mg Tablet) 6 mg PO BEDTIME PRN PRN Reason: Insomnia Sacubitril/Valsartan (Sacubitril/Valsartan 1 Tab Tablet) 1 tab PO BID [facility]; Protocol Last Admin: 06/06/24 08:25 Dose: 1 tab Documented By: CHRISTOPHE Sodium Chloride (0.9 % Sodium Chloride Flush 3 Ml Syringe) 3 ml IVFLUSH QSHIFT [facility] Last Admin: 06/06/24 08:25 Dose: 3 ml Documented By: CHRISTOPHE Labs 06/06/24 05:43 06/06/24 05:43 Labs: Laboratory Results - last 24 hr 06/06/24 05:43 MCV 82.3 MCH 26.7 L MCHC 32.4 RDW 14.0 Plt Count 190 MPV 10.2 Absolute Nucleated RBC 0.000 Nucleated RBC % (auto) 0.0 Anion Gap 12 Estim Creat Clear Calc 181.6 Estimated GFR > 60 Random Glucose 92 Calcium 8.4 Magnesium 2.1 Assessment and Plan (1) CHF (congestive heart failure): Status: Acute Plan 53M PMH morbid obesity, JW, mood disorder, insomnia presented with shortness breath Acute hypoxic respiratory failure secondary to acute systolic CHF echo with EF 25%, global hypokinesis Cardio appreciated continue IV Lasix, Entresto and Jardiance etiology differntial includes recent COVID vs ischemic, will eventually need cath JW CPAP at night Morbid obesity Weight loss recommended Mood disorder, insomnia Reports not really taking Lexapro and trazodone consistently will hold off for now DVT prophylaxis with Lovenox Full Code reason for continued hospitalization: Ongoing IV diuresis Quality Stroke Does the patient have a stroke diagnosis?: No VTE Prior VTE?: No VTE Risk Level:: Medical - moderate - high VTE Device Contraindication: Treatment Not Indicated VTE Drug Contraindication: N/A - Med Ordered
--- NOTE | 2024-06-06 13:35 | PM.PNCARD ---
Subjective Subjective Date of Service: 06/06/24 Principal diagnosis: Decompensated systolic heart failure Interval history: Patient is feeling a lot better. Leg edema is improved. Diuresis overnight although intake and output chart has not been monitored. Blood pressure is okay but on the lower side compared to at admission Review of Systems Constitutional: Reports no additional constitutional complaints Cardiovascular: Denies chest pain, Denies lightheadedness, Denies Loss of Consciousness, Reports dyspnea on exertion and Reports orthopnea Respiratory: Reports dyspnea on exertion Physical Exam Vital Signs: Last Vital Signs Temp 97.4 F 06/06/24 11:37 Pulse 94 06/06/24 11:37 Resp 16 06/06/24 11:37 BP 108/71 06/06/24 11:37 Pulse Ox 93 06/06/24 11:37 O2 Del Method Room Air 06/06/24 11:37 O2 Flow Rate 3 06/06/24 07:24 BMI result Body Mass Index 46.2 Const General: cooperative, alert, awake and in distress mild and respiratory Nutritional Appearance: obese morbidly obese Orientation/consciousness: patient oriented x3 Limitations: no limitations HEENT Head: Yes normocephalic and Yes atraumatic Neck Neck: Yes trachea midline, Yes supple and Yes JVD Resp Effort & Inspection: normal respiratory effort Auscultation: rales bilateral 1/[address] way up Cardio Jugular venous distension: JVD Palpation: abnormal PMI displaced PMI Rate: regular rate Rhythm: regular rhythm Heart sounds: S1 normal heart sound present, S2 normal heart sound present, no click, Gallop heart sound present S3 gallop, no murmurs and no rubs GI Inspection: Yes distended and Yes obesity Auscultation: normal bowel sounds Skin General skin exam: no rashes or lesions noted Neuro General: patient oriented x3 and no focal motor deficits Extrem General: No clubbing, No cyanosis and Yes edema Psych Appearance: grossly normal Affect: Anxious affect present Objective Labs and Meds 06/06/24 05:43 06/06/24 05:43 Lab results: Laboratory Results - last 24 hr 06/06/24 05:43 WBC 6.3 RBC 4.87 Hgb 13.0 L Hct 40.1 L MCV 82.3 MCH 26.7 L MCHC 32.4 RDW 14.0 Plt Count 190 MPV 10.2 Absolute Nucleated RBC 0.000 Nucleated RBC % (auto) 0.0 Sodium 141 Potassium 4.1 Chloride 107 Carbon Dioxide 26 Anion Gap 12 BUN 15 Creatinine 0.75 Estim Creat Clear Calc 181.6 Estimated GFR > 60 Random Glucose 92 Calcium 8.4 Magnesium 2.1 Conclusions: - 1. Moderately dilated left ventricle with severely reduced LV ejection fraction of 15-20% 2. Mildly dilated right-sided chambers with preserved RV contractility 3. Severely dilated left atrium 4. At least mild eccentric mitral regurgitation due to leaflet restriction 5. Upper limits of normal RV systolic pressure with significantly elevated right atrial pressures 6. [id number] pericardial effusion without tamponade Progress Note: A&P Assessment and plan (1) Decompensated heart failure: Status: Acute Assessment and Plan: Decompensated congestive heart failure in patient with severe LV systolic dysfunction with suggestion of dilated cardiomyopathy. Question viral cardiomyopathy. Ischemic etiology needs to be ruled out. Will need cardiac catheterization during this hospitalization. Will transfer to [facility] on Saturday. Continue maximize medical therapy. Continue Entresto, Jardiance. Add spironolactone therapy. Once better compensated will add carvedilol therapy. Strict intake and output chart needs to be provided. Discussed with nurse. Follow BMP and BNP. Will follow with you Time Spent With Patient Time: Total time managing care of this patient today ____ minutes. Progress Note: Quality Stroke Does the patient have a stroke diagnosis?: No Procedures Date of Service Date of Service: 06/06/24
[2024-06-06] MEDS: Acetaminophen 325 MG TABLET 650 MG PO (17:41)
[2024-06-07] VITALS (7 sets, daily range): BP systolic 97–119; BP diastolic 60–75; PULSE 87–156; RESP 16–20; TEMP 36.1–37.1; O2SAT 92–96
[2024-06-07 06:26] LABS: Hematocrit 43.3 % (42.0-52.0); Mean Corpuscular HGB Conc 32.3 g/dl (31.0-36.0); Mean Corpuscular Hemoglobin 26.6 pg (27.0-33.0); Mean Corpuscular Volume 82.2 fL (80.0-98.0); Mean Platelet Volume 9.8 fL (9.4-12.4); Platelet Count 204 X10*3/uL (160-400); Red Blood Count 5.27 X10*6/uL (4.60-5.80); Red Cell Distribution Width 14.1 % (11.0-16.0); White Blood Count 5.9 X10*3/uL (4.8-10.8)
[2024-06-07 06:40] LABS: Anion Gap 12 (12-20); Blood Urea Nitrogen 16 mg/dL (9-16); Calcium 8.6 mg/dL (8.4-10.2); Carbon Dioxide 25 mmol/L (22-29); Chloride 105 mmol/L (96-108); Creatinine Clr Calc Pharmacy 176.8; Estimated Glomerular Filt Rate > 60; Glucose Random 97 mg/dL (60-115); Magnesium 2.2 mg/dL (1.6-2.6); Sodium 138 mmol/L (135-145)
[2024-06-07] MEDS: Sacubitril/Valsartan 24/26 1 TAB TABLET PO ×2 (08:01→20:13)
[2024-06-07] MEDS: Empagliflozin 25 MG TABLET PO (08:02)
[2024-06-07] MEDS: Furosemide 40 MG/4 ML VIAL IVPUSH (08:02)
[2024-06-07] MEDS: Spironolactone 25 MG TABLET 12.5 MG PO (08:02)
--- NOTE | 2024-06-07 08:40 | P.PNIM_ITS ---
Subjective Subjective Date of Service: 06/07/24 Interval History: Shortness of breath and swelling much improved Physical Exam 2 Vital Signs: Vital Signs: Last Vital Signs Temp 97.7 F 06/07/24 08:00 Pulse 95 06/07/24 08:00 Resp 18 06/07/24 08:00 BP 107/68 06/07/24 08:00 Pulse Ox 96 06/07/24 08:00 O2 Del Method Room Air 06/07/24 08:00 O2 Flow Rate 3 06/07/24 04:00 BMI result Body Mass Index 46.2 Const: General: cooperative, alert, awake and in distress mild and respiratory Nutritional Appearance: obese morbidly obese Orientation/consciousness: p atient oriented x3 Limitations: no limitations HEENT: Head: Yes normocephalic and Yes atraumatic Neck: Neck: Yes trachea midline, Yes supple and Yes JVD Resp: Effort & Inspection: normal respiratory effort Auscultation: rales bilateral 1/[address] up Cardio: Jugular venous distension: JVD Palpation: abnormal PMI displaced PMI Rate: regular rate Rhythm: regular rhythm Heart sounds: S1 normal heart sound present, S2 normal heart sound present, no click, Gallop heart sound present S3 gallop, no murmurs and no rubs GI: Inspection: Yes distended and Yes obesity Auscultation: normal bowel sounds Skin: General skin exam: no rashes or lesions noted Neuro: General: patient oriented x3 and no focal motor deficits Extrem: General: No clubbing, No cyanosis and Yes edema Psych: Appearance: grossly normal Affect: Anxious affect present Objective Data Active Medications Acetaminophen (Acetaminophen 325 Mg Tablet) 650 mg PO Q6H PRN PRN Reason: Pain, Mild 1-3,fever,headache Last Admin: 06/06/24 17:41 Dose: 650 mg Documented By: CHRISTOPHE Calcium Carbonate (Calcium Carbonate 750 Mg Tab.Chew) 750 mg PO Q4H PRN PRN Reason: Heartburn Empagliflozin (Empagliflozin 25 Mg Tablet) 25 mg PO DAILY [facility] Last Admin: 06/07/24 08:02 Dose: 25 mg Documented By: CHRISTOPHE Enoxaparin Sodium (Enoxaparin Sodium 40 Mg/0.4 Ml Syringe) 40 mg SUBCUT Q24H [facility] Last Admin: 06/07/24 08:11 Dose: Not Given Documented By: CHRISTOPHE Non-Admin Reason: Patient Refused Furosemide (Furosemide 40 Mg/4 Ml Vial) 40 mg IVPUSH BID@0900,1800 [facility]; Protocol Last Admin: 06/07/24 08:02 Dose: 40 mg Documented By: CHRISTOPHE Magnesium Hydroxide (Milk Of Magnesia 30 Ml Oral.Susp) 30 ml PO DAILY PRN PRN Reason: Constipation Melatonin (Melatonin 3 Mg Tablet) 6 mg PO BEDTIME PRN PRN Reason: Insomnia Sacubitril/Valsartan (Sacubitril/Valsartan 1 Tab Tablet) 1 tab PO BID [facility]; Protocol Last Admin: 06/07/24 08:01 Dose: 1 tab Documented By: CHRISTOPHE Sodium Chloride (0.9 % Sodium Chloride Flush 3 Ml Syringe) 3 ml IVFLUSH QSHIFT [facility] Last Admin: 06/06/24 23:05 Dose: Not Given Documented By: LAVELLE Non-Admin Reason: Previously Administered Spironolactone (Spironolactone 25 Mg Tablet) 12.5 mg PO DAILY [facility]; Protocol Last Admin: 06/07/24 08:02 Dose: 12.5 mg Documented By: CHRISTOPHE Labs 06/07/24 06:07 06/07/24 06:07 Labs: Laboratory Results - last 24 hr 06/07/24 06:07 MCV 82.2 MCH 26.6 L MCHC 32.3 RDW 14.1 Plt Count 204 MPV 9.8 Absolute Nucleated RBC 0.000 Nucleated RBC % (auto) 0.0 Anion Gap 12 Estim Creat Clear Calc 176.8 Estimated GFR > 60 Random Glucose 97 Calcium 8.6 Magnesium 2.2 Assessment and Plan (1) CHF (congestive heart failure): Status: Acute Plan 53M PMH morbid obesity, JW, mood disorder, insomnia presented with shortness breath Acute hypoxic respiratory failure secondary to acute systolic CHF echo with EF 25%, global hypokinesis Cardio appreciated continue IV Lasix, Entresto, Aldactone and Jardiance. Holding off on beta-clark while acutely decompensated etiology differntial includes recent COVID vs ischemic, will eventually need cath - plan for transfer to [facility] on June 08, 2024 JW CPAP at night Morbid obesity Weight loss recommended Mood disorder, insomnia Reports not really taking Lexapro and trazodone consistently will hold off for now DVT prophylaxis with Lovenox Full Code reason for continued hospitalization: Ongoing IV diuresis Quality Stroke Does the patient have a stroke diagnosis?: No VTE Prior VTE?: No VTE Risk Level:: Medical - moderate - high VTE Device Contraindication: Treatment Not Indicated VTE Drug Contraindication: N/A - Med Ordered
--- NOTE | 2024-06-07 10:37 | PM.PNCARD ---
Subjective Subjective Date of Service: 06/07/24 Principal diagnosis: Decompensated systolic heart failure Interval history: Complains of some lightheadedness although not significant. Also has shortness of breath significantly improved and he was no exertional chest pain he was walking at a rapid pace around the watters. Blood pressure in the mid 100 range systolically. Review of Systems Constitutional: Reports no additional constitutional complaints Cardiovascular: Denies Abdominal Distension, Reports chest pain with activity, Denies leg edema, Denies lightheadedness, Reports dyspnea on exertion and Denies orthopnea Respiratory: Reports dyspnea on exertion Reports system reviewed and no additional complaints, except as documented Psychiatric: Reports no additional psychiatric complaints Endocrine: Reports no additional endocrine complaints Physical Exam Vital Signs: Last Vital Signs Temp 97.7 F 06/07/24 08:00 Pulse 95 06/07/24 08:00 Resp 18 06/07/24 08:00 BP 107/68 06/07/24 08:00 Pulse Ox 96 06/07/24 08:00 O2 Del Method Room Air 06/07/24 08:00 O2 Flow Rate 3 06/07/24 04:00 BMI result Body Mass Index 46.2 Const General: cooperative, alert, awake and in distress mild and respiratory Nutritional Appearance: obese morbidly obese Orientation/consciousness: patient oriented x3 Limitations: no limitations HEENT Head: Yes normocephalic and Yes atraumatic Neck Neck: Yes trachea midline, Yes supple and Yes JVD Resp Effort & Inspection: normal respiratory effort Auscultation: rales bilateral 1/[address] up Cardio Jugular venous distension: JVD Palpation: abnormal PMI displaced PMI Rate: regular rate Rhythm: regular rhythm Heart sounds: S1 normal heart sound present, S2 normal heart sound present, no click, Gallop heart sound present S3 gallop, no murmurs and no rubs GI Inspection: Yes distended and Yes obesity Auscultation: normal bowel sounds Skin General skin exam: no rashes or lesions noted Neuro General: patient oriented x3 and no focal motor deficits Extrem General: No clubbing, No cyanosis and Yes edema Psych Appearance: grossly normal Affect: Anxious affect present Objective Labs and Meds 06/07/24 06:07 06/07/24 06:07 Lab results: Laboratory Results - last 24 hr 06/07/24 06:07 WBC 5.9 RBC 5.27 Hgb 14.0 Hct 43.3 MCV 82.2 MCH 26.6 L MCHC 32.3 RDW 14.1 Plt Count 204 MPV 9.8 Absolute Nucleated RBC 0.000 Nucleated RBC % (auto) 0.0 Sodium 138 Potassium 4.0 Chloride 105 Carbon Dioxide 25 Anion Gap 12 BUN 16 Creatinine 0.77 Estim Creat Clear Calc 176.8 Estimated GFR > 60 Random Glucose 97 Calcium 8.6 Magnesium 2.2 Progress Note: A&P Assessment and plan (1) Decompensated heart failure: Status: Acute Assessment and Plan: Decompensated congestive heart failure related to severe LV systolic dysfunction. Clinically much improved. Having some lightheadedness related to lowering of his blood pressure. However not having any orthostatic symptoms. At this point time will continue medications. Pull back in the diuretic therapy to Lasix once a day. Can you all other medications. Hold off on beta-clark therapy, start most likely tomorrow if the blood pressure remained stable. Transferred tomorrow to [facility] for cardiac catheter[facility]. I had a very detailed discussion about management plan for his congestive heart failure cardiomyopathy process with him and his at bedside. This showed understanding agree meant. Time Spent With Patient Time: Total time managing care of this patient today ____ minutes. Progress Note: Quality Stroke Does the patient have a stroke diagnosis?: No Procedures Date of Service Date of Service: 06/07/24
[2024-06-07] MEDS: 0.9 % Sodium Chloride Flush 3 ML SYRINGE IVFLUSH ×3 (12:10→20:13)
[2024-06-08] VITALS (7 sets, daily range): BP systolic 90–118; BP diastolic 57–72; PULSE 87–101; RESP 16–20; TEMP 36.1–36.8; O2SAT 93–96
--- NOTE | 2024-06-08 07:36 | PM.DS ---
DS: Providers Provider Date of Service: 06/09/24 Date of admission: 06/04/24 15:36 Date of discharge: 06/09/24 Primary care physician: Luis Daniel Dawson MD Consults: 06/04/24 15:35 Consult to Cardiology Routine Consulting Provider: [facility] Reason for consultation: new chf Has provider been notified: Yes DS: Diagnosis Discharge Diagnosis (1) Decompensated heart failure: Status: Acute DS: Summary Hospital Course Hospital Course: from initial hpi: 53M PMH morbid obesity, JW, mood disorder, insomnia presented with shortness breath. Patient reports several months of increasing dyspnea on exertion, midsternal burning sensation on exertion, decreased exercise tolerance. Also has a vague feeling of abdominal distention, denies lower extremity edema. Reports subjective fevers since COVID about 1 month prior to presentation. Denies cough. Reports positive orthopnea requiring several pillows to sleep. On night prior to presentation felt that he was going to , only relief was with CPAP so he came to ED. In ED hypoxic to 80% on room air, BNP elevated 1578, CTA negative for PE but showed enlarged heart, mild pericardial effusion, mild ground-glass density in both upper and lower lobes, bilateral small pleural effusions. hospital course: Patient was admitted for acute hypoxic respiratory failure secondary to acute systolic CHF. He had an echocardiogram which revealed EF of 25% global hypokinesis. Was seen by Cardiology who recommended diuresis IV Lasix, adding Entresto, Aldactone, Jardiance, troptol. Differential for Etiology of cardiomyopathy includes ischemic versus viral cardiomyopathy from recent COVID. Patient diuresed well was weaned off oxygen and is feeling much better. Plan is to transfer to [facility] for cardiac catheterization. For obstructive sleep apnea continue CPAP at night. For morbid obesity weight loss recommended. For mood disorder and insomnia patient reports he no longer really takes Lexapro or trazodone. Time Attestation Discharge Coordination Time (in mins): 33 Quality: Safe Use of Opioids Does Pt have an Active Cancer Diagnosis on the Problem List?: No Quality: Stroke Does the patient have a stroke diagnosis?: No Physical Exam Vital Signs: Vital Signs: Last Vital Signs Temp 97.1 F 06/08/24 07:07 Pulse 93 06/08/24 07:07 Resp 18 06/08/24 07:07 BP 94/63 06/08/24 07:07 Pulse Ox 96 06/08/24 07:07 O2 Del Method Room Air 06/08/24 07:07 O2 Flow Rate 3 06/07/24 04:00 BMI result Body Mass Index 46.2 General: AO X 3, no acute distress Resp: CTA bilateral, no accessory muscles used CVS: S1,S2,RRR GI: soft, non tender, non distended Neuro: motor grossly intact, alert Psych: appropriate affect, appropriate insight Discharge Plan Discharge Anticipated Discharge Date/Time: 06/08/24 07:34 Patient Disposition: er Acute [facility] Discharge Diagnosis: new chf Referrals: Luis Daniel Dawson MD [Primary Care Provider] - 1 Week Discharge Medications: New sacubitril-valsartan [Entresto] 24-26 mg Tablet 1 tab PO BID Qty: 0 0RF Protocol: Hold for SBP< HOLD for SBP < : 90 spironolactone 25 mg Tablet 12.5 mg PO DAILY Qty: 0 0RF Protocol: Hold for SBP< HOLD for SBP < : 90 Jardiance 25 mg Tablet 25 mg PO DAILY Qty: 0 0RF metoprolol succinate [Toprol XL] 25 mg tablet extended release 24 hr 12.5 mg PO DAILY Qty: 30 0RF furosemide 40 mg Tablet 40 mg PO DAILY Qty: 0 0RF Protocol: Hold for SBP< HOLD for SBP < : 90 Continued trazodone 100 mg tablet 200 mg PO BEDTIME PRN (Reason: Sleep) escitalopram oxalate 10 mg tablet 10 mg PO DAILY Discharge Orders: Discharge Order (Routine); Ordered 06/08/24 Ordered By: Getachew Mathews Diet: Advance to usual diet Activity on Discharge: As tolerated Stand Alone Forms: Patient Portal Discharge page Print Language: Mongolian Care Plan Goals: maange and work up chf Health Concerns: chf [place] of [place] [facility]: see above
[2024-06-08 07:37] LABS: Hematocrit 45.7 % (42.0-52.0); Hemoglobin 14.7 g/dl (14.0-18.0); Mean Corpuscular HGB Conc 32.2 g/dl (31.0-36.0); Mean Corpuscular Hemoglobin 26.3 pg (27.0-33.0); Mean Corpuscular Volume 81.9 fL (80.0-98.0); Mean Platelet Volume 9.7 fL (9.4-12.4); Platelet Count 230 X10*3/uL (160-400); Red Blood Count 5.58 X10*6/uL (4.60-5.80); Red Cell Distribution Width 14.1 % (11.0-16.0); White Blood Count 6.6 X10*3/uL (4.8-10.8)
[2024-06-08] MEDS: Empagliflozin 25 MG TABLET PO (07:43)
[2024-06-08] MEDS: Spironolactone 25 MG TABLET 12.5 MG PO (07:43)
[2024-06-08] MEDS: Sacubitril/Valsartan 24/26 1 TAB TABLET PO ×2 (07:43→21:06)
[2024-06-08] MEDS: Furosemide 40 MG/4 ML VIAL IVPUSH (07:45)
[2024-06-08] MEDS: 0.9 % Sodium Chloride Flush 3 ML SYRINGE IVFLUSH ×2 (07:45→21:09)
[2024-06-08 07:59] LABS: Anion Gap 11 (12-20); Blood Urea Nitrogen 20 mg/dL (9-16); Calcium 8.9 mg/dL (8.4-10.2); Carbon Dioxide 26 mmol/L (22-29); Chloride 106 mmol/L (96-108); Creatinine Clr Calc Pharmacy 170.2; Estimated Glomerular Filt Rate > 60; Glucose Random 98 mg/dL (60-115); Potassium 4.4 mmol/L (3.3-5.1); Sodium 139 mmol/L (135-145)
--- NOTE | 2024-06-08 09:43 | PM.PNCARD ---
Subjective Subjective Date of Service: 06/08/24 Principal diagnosis: Decompensated systolic heart failure Interval history: Patient states he feels fine. He states that he feels much better than at the time of admission. Shortness of breath is significantly improved. Leg swelling is also better. No active chest pains. Review of Systems Review of Systems Yes all other systems are reviewed and are negative Constitutional: Reports as per HPI and Reports no additional constitutional complaints Eyes: Reports as per HPI and Denies no additional eye complaints Denies system reviewed and no additional complaints, except as documented and Reports as per HPI Cardiovascular: Reports as per HPI, Reports no additional cardiovascular complaints, Denies acrocyanosis, Denies cool extremities, Denies chest pain, Denies leg edema, Denies lightheadedness, Denies palpitations and Denies dyspnea Respiratory: Reports as per HPI, Denies no additional respiratory complaints and Denies dyspnea Gastrointestinal: Reports as per HPI and Denies no additional gastrointestinal complaints Genitourinary: Reports no additional male genitourinary complaints and Reports as per HPI Musculoskeletal: Reports no additional musculoskeletal complaints and Reports as per HPI Skin/Breast: Reports system reviewed and no additional complaints, except as docu Reports system reviewed and no additional complaints, except as documented and Reports as per HPI Psychiatric: Reports no additional psychiatric complaints and Reports as per HPI Endocrine: Reports no additional endocrine complaints, Reports as per HPI and Denies palpitations Hematologic/Lymphatic: Reports no additional hematologic/lymphatic complaints and Reports as per HPI Allergic/Immunologic: Reports no additional allergic/immunologic complaints and Reports as per HPI Physical Exam Vital Signs: Last Vital Signs Temp 97.1 F 06/08/24 07:07 Pulse 93 06/08/24 07:07 Resp 18 06/08/24 07:07 BP 94/63 06/08/24 07:07 Pulse Ox 96 06/08/24 07:07 O2 Del Method Room Air 06/08/24 07:07 O2 Flow Rate 3 06/07/24 04:00 BMI result Body Mass Index 46.2 Const General: comfortable and no acute distress Orientation/consciousness: patient oriented x3 HEENT Other: Unremarkable Head: Yes normal to inspection Neck Neck: Yes normal visual inspection Chest Chest palpation & inspection: normal inspection of the chest Resp Auscultation: clear to auscultation bilaterally Cardio Palpation: normal PMI Heart sounds: S1 normal heart sound present, S2 normal heart sound present, no gallops, no murmurs and no rubs GI Palpation (GI): Soft to palpation Back/Spine/Pelvis Other: unremarkable Skin General skin exam: no rashes or lesions noted Neuro General: patient oriented x3 Extrem General: Yes normal to inspection Psych Mental Status: mental status grossly normal Objective Labs and Meds 06/08/24 07:09 06/08/24 07:09 Lab results: Laboratory Results - last 24 hr 06/08/24 07:09 WBC 6.6 RBC 5.58 Hgb 14.7 Hct 45.7 MCV 81.9 MCH 26.3 L MCHC 32.2 RDW 14.1 Plt Count 230 MPV 9.7 Absolute Nucleated RBC 0.000 Nucleated RBC % (auto) 0.0 Sodium 139 Potassium 4.4 Chloride 106 Carbon Dioxide 26 Anion Gap 11 L BUN 20 H Creatinine 0.80 Estim Creat Clear Calc 170.2 Estimated GFR > 60 Random Glucose 98 Calcium 8.9 Progress Note: A&P Assessment and plan (1) Acute on chronic systolic (congestive) heart failure: Status: Acute Assessment and Plan: In the echocardiogram, LVEF is 15 20%. Dilated left ventricle. For meds, currently on valsartan, spironolactone, Jardiance, furosemide. Can switch diuretics to p.o.. Await diagnostic catheterization. (2) Ventricular tachycardia: Status: Acute Assessment and Plan: PVCs/short runs of NSVT on telemetry. Try a small dose of beta-clark but blood pressure is also quite low. Recommend EP consultation. Time Spent With Patient Time: Total time managing care of this patient today ____ minutes. Progress Note: Quality Stroke Does the patient have a stroke diagnosis?: No Procedures Date of Service Date of Service: 06/08/24
--- NOTE | 2024-06-08 10:16 | MHC.CM.PN ---
Pt will be transferred to [facility] for acute care there.
[2024-06-08] MEDS: Metoprolol Succinate ER 12.5 MG HALFTAB.ER.24H PO (10:38)
--- NOTE | 2024-06-08 18:18 | P.PNIM_ITS ---
Subjective Subjective Date of Service: 06/08/24 Interval History: Shortness of breath and swelling much improved Physical Exam 2 Vital Signs: Vital Signs: Last Vital Signs Temp 97.5 F 06/08/24 15:21 Pulse 101 H 06/08/24 15:21 Resp 18 06/08/24 15:21 BP 110/72 06/08/24 15:21 Pulse Ox 95 06/08/24 15:21 O2 Del Method Room Air 06/08/24 15:21 O2 Flow Rate 3 06/07/24 04:00 BMI result Body Mass Index 46.2 Const: General: comfortable and no acute distress O rientation/consciousness: patient oriented x3 HEENT: Other: Unremarkable Head: Yes normal to inspection Neck: Neck: Yes normal visual inspection Chest: Chest palpation & inspection: normal inspection of the chest Resp: Auscultation: clear to auscultation bilaterally Cardio: Palpation: normal PMI Heart sounds: S1 normal heart sound present, S2 normal heart sound present, no gallops, no murmurs and no rubs GI: Palpation (GI): Soft to palpation Back/Spine/Pelvis: Other: unremarkable Skin: General skin exam: no rashes or lesions noted Neuro: General: patient oriented x3 Extrem: General: Yes normal to inspection Psych: Mental Status: mental status grossly normal Objective Data Active Medications Acetaminophen (Acetaminophen 325 Mg Tablet) 650 mg PO Q6H PRN PRN Reason: Pain, Mild 1-3,fever,headache Last Admin: 06/06/24 17:41 Dose: 650 mg Documented By: CHRISTOPHE Calcium Carbonate (Calcium Carbonate 750 Mg Tab.Chew) 750 mg PO Q4H PRN PRN Reason: Heartburn Empagliflozin (Empagliflozin 25 Mg Tablet) 25 mg PO DAILY [facility] Last Admin: 06/08/24 07:43 Dose: 25 mg Documented By: CHRISTOPHE Enoxaparin Sodium (Enoxaparin Sodium 40 Mg/0.4 Ml Syringe) 40 mg SUBCUT Q24H [facility] Last Admin: 06/08/24 07:51 Dose: Not Given Documented By: CHRISTOPHE Non-Admin Reason: Patient Refused Furosemide (Furosemide 40 Mg/4 Ml Vial) 40 mg IVPUSH DAILY [facility]; Protocol Last Admin: 06/08/24 07:45 Dose: 40 mg Documented By: HO.SZOTPAT Magnesium Hydroxide (Milk Of Magnesia 30 Ml Oral.Susp) 30 ml PO DAILY PRN PRN Reason: Constipation Melatonin (Melatonin 3 Mg Tablet) 6 mg PO BEDTIME PRN PRN Reason: Insomnia Metoprolol Succinate (Metoprolol Succinate Er 12.5 Mg Halftab.Er.24h) 12.5 mg PO DAILY [facility]; Protocol Last Admin: 06/08/24 10:38 Dose: 12.5 mg Documented By: CHRISTOPHE Sacubitril/Valsartan (Sacubitril/Valsartan 1 Tab Tablet) 1 tab PO BID [facility]; Protocol Last Admin: 06/08/24 07:43 Dose: 1 tab Documented By: CHRISTOPHE Sodium Chloride (0.9 % Sodium Chloride Flush 3 Ml Syringe) 3 ml IVFLUSH QSHIFT [facility] Last Admin: 06/08/24 07:45 Dose: 3 ml Documented By: CHRISTOPHE Spironolactone (Spironolactone 25 Mg Tablet) 12.5 mg PO DAILY [facility]; Protocol Last Admin: 06/08/24 07:43 Dose: 12.5 mg Documented By: CHRISTOPHE Comments: Labs 06/08/24 07:09 06/08/24 07:09 Labs: Laboratory Results - last 24 hr 06/08/24 07:09 MCV 81.9 MCH 26.3 L MCHC 32.2 RDW 14.1 Plt Count 230 MPV 9.7 Absolute Nucleated RBC 0.000 Nucleated RBC % (auto) 0.0 Anion Gap 11 L Estim Creat Clear Calc 170.2 Estimated GFR > 60 Random Glucose 98 Calcium 8.9 Assessment and Plan (1) CHF (congestive heart failure): Status: Acute Plan 53M PMH morbid obesity, JW, mood disorder, insomnia presented with shortness breath Acute hypoxic respiratory failure secondary to acute systolic CHF echo with EF 25%, global hypokinesis Cardio appreciated continue IV Lasix - decreased to daily, Entresto, Aldactone and Jardiance, tropol added etiology differntial includes recent COVID vs ischemic, will eventually need cath - plan for transfer to [facility] JW CPAP at night Morbid obesity Weight loss recommended Mood disorder, insomnia Reports not really taking Lexapro and trazodone consistently will hold off for now DVT prophylaxis with Lovenox Full Code reason for continued hospitalization: Ongoing IV diuresis Quality Stroke Does the patient have a stroke diagnosis?: No VTE Prior VTE?: No VTE Risk Level:: Medical - moderate - high VTE Device Contraindication: Treatment Not Indicated VTE Drug Contraindication: N/A - Med Ordered
[2024-06-09 03:30] VITALS: BP 115/60; PULSE 82; RESP 18; TEMP 36.1; O2SAT 92
[2024-06-09 07:33] VITALS: BP 100/59; PULSE 92; RESP 16; TEMP 36.1; O2SAT 95
--- NOTE | 2024-06-09 09:11 | P.PNIM_ITS ---
Subjective Subjective Date of Service: 06/09/24 Interval History: Shortness of breath and swelling much improved Physical Exam 2 Vital Signs: Vital Signs: Last Vital Signs Temp 96.9 F 06/09/24 07:33 Pulse 92 06/09/24 07:33 Resp 16 06/09/24 07:33 BP 100/59 L 06/09/24 07:33 Pulse Ox 95 06/09/24 07:33 O2 Del Method Room Air 06/09/24 07:33 O2 Flow Rate 3 06/07/24 04:00 BMI result Body Mass Index 46.2 Const: General: comfortable and no acute distress O rientation/consciousness: patient oriented x3 HEENT: Other: Unremarkable Head: Yes normal to inspection Neck: Neck: Yes normal visual inspection Chest: Chest palpation & inspection: normal inspection of the chest Resp: Auscultation: clear to auscultation bilaterally Cardio: Palpation: normal PMI Heart sounds: S1 normal heart sound present, S2 normal heart sound present, no gallops, no murmurs and no rubs GI: Palpation (GI): Soft to palpation Back/Spine/Pelvis: Other: unremarkable Skin: General skin exam: no rashes or lesions noted Neuro: General: patient oriented x3 Extrem: General: Yes normal to inspection Psych: Mental Status: mental status grossly normal Objective Data Active Medications Acetaminophen (Acetaminophen 325 Mg Tablet) 650 mg PO Q6H PRN PRN Reason: Pain, Mild 1-3,fever,headache Last Admin: 06/06/24 17:41 Dose: 650 mg Documented By: CHRISTOPHE Calcium Carbonate (Calcium Carbonate 750 Mg Tab.Chew) 750 mg PO Q4H PRN PRN Reason: Heartburn Empagliflozin (Empagliflozin 25 Mg Tablet) 25 mg PO DAILY [facility] Last Admin: 06/08/24 07:43 Dose: 25 mg Documented By: CHRISTOPHE Enoxaparin Sodium (Enoxaparin Sodium 40 Mg/0.4 Ml Syringe) 40 mg SUBCUT Q24H [facility] Last Admin: 06/08/24 07:51 Dose: Not Given Documented By: CHRISTOPHE Non-Admin Reason: Patient Refused Furosemide (Furosemide 40 Mg/4 Ml Vial) 40 mg IVPUSH DAILY [facility]; Protocol Last Admin: 06/08/24 07:45 Dose: 40 mg Documented By: HO.SZOTPAT Magnesium Hydroxide (Milk Of Magnesia 30 Ml Oral.Susp) 30 ml PO DAILY PRN PRN Reason: Constipation Melatonin (Melatonin 3 Mg Tablet) 6 mg PO BEDTIME PRN PRN Reason: Insomnia Metoprolol Succinate (Metoprolol Succinate Er 12.5 Mg Halftab.Er.24h) 12.5 mg PO DAILY [facility]; Protocol Last Admin: 06/08/24 10:38 Dose: 12.5 mg Documented By: CHRISTOPHE Sacubitril/Valsartan (Sacubitril/Valsartan 1 Tab Tablet) 1 tab PO BID [facility]; Protocol Last Admin: 06/08/24 21:06 Dose: 1 tab Documented By: ANGY Sodium Chloride (0.9 % Sodium Chloride Flush 3 Ml Syringe) 3 ml IVFLUSH QSHIFT [facility] Last Admin: 06/08/24 21:09 Dose: 3 ml Documented By: ANGY Spironolactone (Spironolactone 25 Mg Tablet) 12.5 mg PO DAILY [facility]; Protocol Last Admin: 06/08/24 07:43 Dose: 12.5 mg Documented By: CHRISTOPHE Comments: Labs 06/08/24 07:09 06/08/24 07:09 Assessment and Plan (1) CHF (congestive heart failure): Status: Acute Plan 53M PMH morbid obesity, JW, mood disorder, insomnia presented with shortness breath Acute hypoxic respiratory failure secondary to acute systolic CHF echo with EF 25%, global hypokinesis Cardio appreciated continue IV Lasix - decreased to daily, Entresto, Aldactone and Jardiance, tropol added etiology differntial includes recent COVID vs ischemic, will eventually need cath - plan for transfer to [facility] JW CPAP at night Morbid obesity Weight loss recommended Mood disorder, insomnia Reports not really taking Lexapro and trazodone consistently will hold off for now DVT prophylaxis with Lovenox Full Code reason for continued hospitalization: [place] [facility] [place] Quality Stroke Does the patient have a stroke diagnosis?: No VTE Prior VTE?: No VTE Risk Level:: Medical - moderate - high VTE Device Contraindication: Treatment Not Indicated VTE Drug Contraindication: N/A - Med Ordered
[2024-06-09] MEDS: Spironolactone 25 MG TABLET 12.5 MG PO (09:22)
[2024-06-09] MEDS: Empagliflozin 25 MG TABLET PO (09:22)
[2024-06-09] MEDS: Furosemide 40 MG/4 ML VIAL IVPUSH (09:22)
[2024-06-09] MEDS: Sacubitril/Valsartan 24/26 1 TAB TABLET PO (09:23)
[2024-06-09] MEDS: Metoprolol Succinate ER 12.5 MG HALFTAB.ER.24H PO (09:23)
[2024-06-09] MEDS: 0.9 % Sodium Chloride Flush 3 ML SYRINGE IVFLUSH (09:23)
[2024-06-09 11:23] VITALS: BP 102/64; PULSE 88; RESP 18; TEMP 36.1; O2SAT 95
--- NOTE | 2024-06-09 11:35 | PM.PNCARD ---
Subjective Subjective Date of Service: 06/09/24 Principal diagnosis: Decompensated systolic heart failure Interval history: Patient states that he feels fine. He does not have any active angina. Otherwise, awaiting bed at [facility]. Review of Systems Review of Systems Yes all other systems are reviewed and are negative Constitutional: Reports as per HPI and Reports no additional constitutional complaints Eyes: Reports as per HPI and Denies no additional eye complaints Denies system reviewed and no additional complaints, except as documented and Reports as per HPI Cardiovascular: Reports as per HPI, Reports no additional cardiovascular complaints, Denies acrocyanosis, Denies cool extremities, Denies chest pain, Denies leg edema, Denies lightheadedness, Denies palpitations and Denies dyspnea Respiratory: Reports as per HPI, Denies no additional respiratory complaints and Denies dyspnea Gastrointestinal: Reports as per HPI and Denies no additional gastrointestinal complaints Genitourinary: Reports no additional male genitourinary complaints and Reports as per HPI Musculoskeletal: Reports no additional musculoskeletal complaints and Reports as per HPI Skin/Breast: Reports system reviewed and no additional complaints, except as docu Reports system reviewed and no additional complaints, except as documented and Reports as per HPI Psychiatric: Reports no additional psychiatric complaints and Reports as per HPI Endocrine: Reports no additional endocrine complaints, Reports as per HPI and Denies palpitations Hematologic/Lymphatic: Reports no additional hematologic/lymphatic complaints and Reports as per HPI Allergic/Immunologic: Reports no additional allergic/immunologic complaints and Reports as per HPI Physical Exam Vital Signs: Last Vital Signs Temp 97 F 06/09/24 11:23 Pulse 88 06/09/24 11:23 Resp 18 06/09/24 11:23 BP 102/64 06/09/24 11:23 Pulse Ox 95 06/09/24 11:23 O2 Del Method Room Air 06/09/24 11:23 O2 Flow Rate 3 06/07/24 04:00 BMI result Body Mass Index 46.2 Const General: comfortable and no acute distress Orientation/consciousness: patient oriented x3 HEENT Other: Unremarkable Head: Yes normal to inspection Neck Neck: Yes normal visual inspection Chest Chest palpation & inspection: normal inspection of the chest Resp Auscultation: clear to auscultation bilaterally Cardio Palpation: normal PMI Heart sounds: S1 normal heart sound present, S2 normal heart sound present, no gallops, no murmurs and no rubs GI Palpation (GI): Soft to palpation Back/Spine/Pelvis Other: unremarkable Skin General skin exam: no rashes or lesions noted Neuro General: patient oriented x3 Extrem General: Yes normal to inspection Psych Mental Status: mental status grossly normal Objective Labs and Meds 06/08/24 07:09 06/08/24 07:09 Progress Note: A&P Assessment and plan (1) Acute on chronic systolic (congestive) heart failure: Status: Acute Assessment and Plan: In the echocardiogram, LVEF is 15-20%. Dilated left ventricle. For meds, currently on valsartan, spironolactone, Jardiance, furosemide. Stop IV diuretics and change to oral. Await diagnostic catheterization. (2) Ventricular tachycardia: Status: Acute Assessment and Plan: PVCs/short runs of NSVT on telemetry-but nothing significant in the last 24 hours. May keep on small dose of beta-clark but blood pressure is also quite low. Recommend EP consultation at [facility]. Time Spent With Patient Time: Total time managing care of this patient today ____ minutes. Progress Note: Quality Stroke Does the patient have a stroke diagnosis?: No Procedures Date of Service Date of Service: 06/09/24
== END 2024-06-09 12:04 | disposition short-term general hospital (02) | DRG 194 ==
LOC: HO.ED 14:54 → HO.EDOVER 15:39 → HO.IMC 06-05 08:22
PROVIDERS: Admitting Provider Internal Medicine; Emergency Provider Emergency Medicine; PCP Internal Medicine; Visit Provider Internal Medicine
DX: I50.23 Acute on chronic systolic (congestive) heart failure (principal); J96.01 Acute respiratory failure with hypoxia; I47.20 Ventricular tachycardia, unspecified; E66.01 Morbid (severe) obesity due to excess calories; I42.0 Dilated cardiomyopathy; B33.24 Viral cardiomyopathy; G47.33 Obstructive sleep apnea (adult) (pediatric); Z68.42 Body mass index [BMI] 45.0-49.9, adult; F39 Unspecified mood [affective] disorder; G47.00 Insomnia, unspecified; Z20.822 Contact with and (suspected) exposure to COVID-19; Z79.899 Other long term (current) drug therapy
CPT/HCPCS: 0241U; 36415; 71045; 71275; 80048; 80076; 82803; 83690; 83735; 83880; 84484; 85025; 85027; 85610; 93005; 93306; 94660; 99285; J1650; J1940; Q9957; Q9967

== ENCOUNTER → 2024-06-04 10:55 | Outpatient (BNV) | payer OTHER, SELFPAY | PROVIDERS: PCP Internal Medicine; Visit Provider Radiology Diagnostic Radiology | DX: J90 Pleural effusion, not elsewhere classified (principal); R00.1 Bradycardia, unspecified | CPT/HCPCS: 71045; 71275 ==

== ENCOUNTER → 2024-06-04 10:55 | Outpatient (BNV) | payer OTHER, SELFPAY | PROVIDERS: Admitting Provider Internal Medicine; Emergency Provider Emergency Medicine; PCP Internal Medicine; Visit Provider Internal Medicine Cardiovascular Disease | DX: R94.31 Abnormal electrocardiogram [ECG] [EKG] (principal) | CPT/HCPCS: 93010 ==

== ENCOUNTER 2024-06-04 15:36 | Outpatient (BNV) | payer OTHER, SELFPAY | END 2024-06-05 07:00 | PROVIDERS: Admitting Provider Internal Medicine; Emergency Provider Emergency Medicine; PCP Internal Medicine; Visit Provider Internal Medicine Cardiovascular Disease | DX: I50.21 Acute systolic (congestive) heart failure (principal); I31.39 Other pericardial effusion (noninflammatory); I34.0 Nonrheumatic mitral (valve) insufficiency; I36.1 Nonrheumatic tricuspid (valve) insufficiency | CPT/HCPCS: 93306 ==

== ENCOUNTER → 2024-06-04 15:36 | Outpatient (BNV) | payer OTHER, SELFPAY | PROVIDERS: Admitting Provider Internal Medicine; Emergency Provider Emergency Medicine; PCP Internal Medicine; Visit Provider Internal Medicine Cardiovascular Disease | DX: I50.9 Heart failure, unspecified (principal) | CPT/HCPCS: 99223 ==

== ENCOUNTER → 2024-06-04 15:36 | Outpatient (BNV) | payer OTHER, SELFPAY | PROVIDERS: Admitting Provider Internal Medicine; Emergency Provider Emergency Medicine; PCP Internal Medicine; Visit Provider Internal Medicine | DX: I50.21 Acute systolic (congestive) heart failure (principal) | CPT/HCPCS: 99223; 99232; 99239 ==

== ENCOUNTER → 2024-06-09 23:59 | Outpatient (BNV) | payer OTHER, SELFPAY | PROVIDERS: PCP Internal Medicine; Visit Provider Internal Medicine Cardiovascular Disease | DX: I50.20 Unspecified systolic (congestive) heart failure (principal) | CPT/HCPCS: 93458; 99152 ==

== ENCOUNTER 2024-06-23 14:05 | Outpatient (AMB) | payer OTHER, SELFPAY ==
[2024-06-23 14:35] VITALS: BP 118/64; PULSE 78; BMI 46.0
--- NOTE | 2024-06-23 14:35 | A.OFFVIS_ITS ---
Vital Signs 06/23/24 14:35 Height 6 ft 1 in Weight 348 lb 5.286 oz BMI 46.0 BP 118/64 Blood Pressure Location Lt brachial Position Sitting Pulse 78 Pulse Source Pulse Oximeter Intake Visit Reasons: 2 week follow-up post cath Allergies No Known Allergies Allergy (Verified 06/23/24 14:46) Medication List - Last Reconciled 06/23/24 by Niraj Montano NP dapagliflozin propanediol 10 mg PO DAILY empagliflozin (Jardiance) 25 mg PO DAILY escitalopram oxalate 10 mg PO DAILY furosemide 40 mg See Protocol PO DAILY metoprolol succinate ER 50 mg PO DAILY sacubitril-valsartan 24-26 mg (Entresto) 1 tab PO BID spironolactone 12.5 mg See Protocol PO DAILY trazodone 100 mg PO BEDTIME PRN valsartan 40 mg PO DAILY HPI Comments Details: This is a 53-year-old male patient presenting for hospital follow-up after being diagnosed with new onset congestive heart failure and nonischemic cardiomyopathy, with an EF of 15-20%. He has past medical history of obesity, sleep apnea, and mood disorder. Patient reports that since having COVID last year, he has experienced shortness of breath, which progressively worsened. He also developed exertional burning chest pain, which he initially thought was related to stomach issues. In May, he contracted COVID again, in his symptoms worsened including occasional shortness of breath while lying down. He came to the ER, where he was found to be hypoxic with an oxygen saturation in the 80s, which improved with oxygen therapy. A chest x-ray showed bilateral effusions and CT scan ruled out pulmonary embolism but revealed cardiomegaly. The patient has no cardiac history of coronary artery disease, ischemic disease, cardiomyopathy. Patient also denied any family history of coronary artery disease. After diuresis and clinical improvement, he was transferred to [facility] for a cardiac catheterization, which was normal. A subsequent cardiac MRI was performed that suggested myocarditis versus infiltrative disease. During his hospital stay patient also developed NSVT, which resolved after increasing his beta clark dose. Was recommended for LifeVest fitting, but the patient has refused this. Today, the patient states feeling well overall and denies any exertional chest pain, shortness of breath, palpitations, dizziness, orthopnea, PND, edema, presyncope, or syncope. PFSH Medical History JW (obstructive sleep apnea) Mood disorder Social History Household Members: Spouse and Other Household Members Other:: son, mother Housing: House Do you presently have visiting nurse or other home services: No Patient Tobacco Use Status: Never used Tobacco service: No Review of Systems Const Denies weakness ENT Denies dizziness Card Denies chest pain, Denies chest pain with activity, Denies syncope, Denies rapid heart rate, Denies pedal edema, Denies edema, Denies leg edema, Denies lightheadedness, Denies palpitations, Denies dyspnea, Denies dyspnea on exertion and Denies orthopnea Resp Denies cough, Denies dyspnea and Denies dyspnea on exertion GI Denies hematochezia and Denies change in stool character Musc Denies abnormal gait, Denies muscle cramps, Denies muscle weakness, Denies numbness, Denies radiating pain into limb and Denies tingling Neuro Denies abnormal gait, Denies dizziness, Denies syncope, Denies numbness, Denies tingling and Denies weakness Endo Denies palpitations Physical Exam Vital Signs: Last Vital Signs Pulse 78 06/23/24 14:35 BP 118/64 06/23/24 14:35 BMI result Body Mass Index 46.0 Const General: cooperative, healthy appearing, comfortable and no acute distress Orientation/consciousness: patient oriented x3 HEENT Head: Yes normal to inspection Neck Neck: Yes normal visual inspection, Yes trachea midline and Yes supple Chest Chest palpation & inspection: normal inspection of the chest Resp Effort & Inspection: normal respiratory effort Auscultation: clear to auscultation bilaterally, no crackles, no rales, no rhonchi and no wheezes Cardio Jugular venous distension: no JVD Palpation: normal PMI Rate: regular rate Rhythm: regular rhythm Heart sounds: S1 normal heart sound present, S2 normal heart sound present, no click, no gallops, no murmurs and no rubs Peripheral pulses: Peripheral pulses 2+ throughout GI Inspection: Yes normal to inspection Palpation (GI): Soft to palpation Auscultation: normal bowel sounds Skin General skin exam: no rashes or lesions noted Neuro General: patient oriented x3 Extrem General: Yes normal to inspection, No no pedal edema and No calf tenderness Psych Appearance: grossly normal Mental Status: mental status grossly normal Speech and movement: Normal speech and movement present Assessment & Plan Assessment & Plan (1) CHF (congestive heart failure): Code(s): I50.9 - Heart failure, unspecified Category: Medical Qualifiers: Heart failure chronicity: acute Heart failure type: unspecified Qualified Code(s): I50.9 - Heart failure, unspecified (2) JW (obstructive sleep apnea): Code(s): G47.33 - Obstructive sleep apnea (adult) (pediatric) Category: Medical (3) Hospital discharge follow-up: Code(s): Z09 - Encounter for follow-up examination after completed treatment for conditions other than malignant neoplasm Plan Continue Lasix 40 mg daily, metoprolol 50 mg daily, spironolactone 12.5 mg daily. Patient was started on Farxiga but has not been able to obtain it due to prior authorization issues and is currently using simple packets. Patient is also taking losartan 20 mg twice daily but has not been able to get Entresto due to another prior authorization issue. I have contacted the nurse to initiate the process for these medications. For now the patient is opting to continue following up with [facility] since they have decided to do her repeat cardiac MRI. We will get a repeat echo in 3 months. Recommend heart healthy diet, fluid restriction, 2 g salt intake, CPAP therapy, regular exercise, weight loss, aggressive blood pressure management ideally less than 130/80, and LDL less than 100. Emphasized the need for patient to follow the medication regimen. Patient will follow-up with us in 1 month. Patient will contact us with any concerns. This note was generated using voice recognition software. While every effort has been made to ensure accuracy and proper software support analyst, there may be occasional errors that could affect the content or meaning of the described symptoms. Orders: Orders CA echo transthoracic complete 3 Months I50.9 - Heart failure, unspecified Medications: New metoprolol succinate ER 50 mg PO DAILY 90 tabs 3RF dapagliflozin propanediol 10 mg PO DAILY 90 tabs 3RF valsartan 20 mg PO BID Changed From sacubitril-valsartan 24-26 mg (Entresto) 1 tab See Protocol PO BID 0 tabs 0RF To sacubitril-valsartan 24-26 mg (Entresto) 1 tab PO BID 180 tabs 2RF Coding Level of Care Code Est Pt Level 4 (00143) Diagnoses CHF (congestive heart failure) I50.9 Heart failure chronicity: acute Heart failure type: unspecified JW (obstructive sleep apnea) G47.33 Hospital discharge follow-up Z09 Time Spent (min) 32 Comment Time spent in reviewing the chart, test results, assessment, counseling and documentation.
--- OUTSIDE RECORDS SUMMARY | 2024-06-23 16:06 | XMS_ITS | Continuity of Care Document ---
Author Organization [facility] ter Address [address] [place] [id number]- Care Team Providers Care Product Support Representative Name Role Phone Eunice MINAYA, Luis Daniel Santillan Primary Care Physician Encounter [facility] Date(s): 06/09/24 - 06/12/[address] [address]- Discharge Disposition: A-D/C Home Attending Physician: Yadira Harmon MD Admitting Physician: Lele Morton MD Referring Physician: Lele Morton MD Encounter Type: Disch IP Allergies, Adverse Reactions, Alerts No Known Allergies Immunizations Given and Recorded Vaccine Date Status Refusal Reason zoster vaccine, inactivated 12/02/23 Recorded tetanus/diphtheria/pertussis, acel(Tdap) 12/02/23 Recorded tetanus/diphtheria/pertussis, acel(Tdap) 10/22/17 Given influenza virus vaccine, inactivated 03/13/23 Jas rded influenza virus vaccine, inactivated 04/03/22 Jas rded influenza virus vaccine, inactivated 03/24/21 Jas rded influenza virus vaccine, inactivated 02/19/20 Jas rded influenza virus vaccine, inactivated 04/26/19 Jas rded influenza virus vaccine, inactivated 03/16/18 Jas rded influenza virus vaccine, inactivated 1 04/07/17 Re corded influenza virus vaccine, inactivated 2 03/10/16 Re corded influenza virus vaccine, inactivated 05/03/13 Give n [id number] bivalent booster vax 04/06/22 Recorded SARS-CoV-2 (COVID-19) mRNA-1273 vaccine 03/30/21 R ecorded SARS-CoV-2 (COVID-19) mRNA-1273 vaccine 08/25/20 R ecorded SARS-CoV-2 (COVID-19) mRNA-1273 vaccine 07/28/20 R ecorded Tet/Diphth/Acel, Pertussis (oldterm) 08/29/07 Give n 1Result Comment: [04/10/2017] s&s 2Location History: [facility] Medications dapagliflozin 10 mg oral tablet = 10 mg, By Mouth, Daily, # 30 tablet, 0 Refills, Maintenance, 06/13/24 9:00:00 AM EST, Tablet, [facility], Partial fill upon patient request if the prescription is for a schedule II opioid drug., 186, cm, 06/12/24 7:57:00 EST, Height, 162.3, kg, 06/09/24 13:31:00 EST, Dry Weight Start Date: 06/13/24 Stop Date: 07/13/24 Status: Ordered Quantity: 30.0 Unit: tablet Repeat number: 1 Escitalopram = 20 mg, By Mouth, Daily, 0 Refills, Maintenance, 12/10/23 9:55:00 AM EDT, Partial fill upon patient request if the prescription is for a schedule II opioid drug. Start Date: 12/10/23 Status: Ordered Repeat number: 1 furosemide 20 mg oral tablet 20 mg, By Mouth, Daily, # 30 tablet, Refills 0, Tot. Refills 0, Maintenance, 06/13/24 9:00:00 AM EST, Route to Pharmacy Electronically, [facility], Partial fill upon patient request if the prescription is for a schedule II opioid drug., 186, cm, 06/12/24 7:57:00 EST, Height, 162.3, kg,06/09/24 13:31:00 EST, Dry Weight Start Date: 06/13/24 Stop Date: 07/13/24 Status: Ordered Quantity: 30.0 Unit: tablet Repeat number: 1 metoprolol 25 mg oral tablet, extended release 25 mg, XL Tablet, By Mouth, 06/12/24 9:00:00 AM EST Start Date: 06/12/24 Stop Date: 06/12/24 Status: Completed Repeat number: 1 metoprolol 25 mg oral tablet, extended release 25 mg, XL Tablet, By Mouth, Once, DEMARCO, 06/12/24 11:33:00 AM EST, Stop date 06/12/24 12:37:27 PM EST Notes: Product selected is XL - ensure this selection was intended Start Date: 06/12/24 Stop Date: 06/12/24 Status: Completed Repeat number: 1 metoprolol 50 mg oral tablet, extended release 50 mg, By Mouth, Daily, # 30 tablet, Refills 0, Tot. Refills 0, Maintenance, 06/13/24 9:00:00 AM EST, Route to Pharmacy Electronically, [facility], Partial fill upon patient request if the prescription is for a schedule II opioid drug., 186, cm, 06/12/24 7:57:00 EST, Height, 162.3, kg,06/09/24 13:31:00 EST, Dry Weight Start Date: 06/13/24 Stop Date: 07/13/24 Status: Ordered Quantity: 30.0 Unit: tablet Repeat number: 1 spironolactone 25 mg oral tablet 12.5 mg, By Mouth, Daily, # 30 tablet, Refills 0, Tot. Refills 0, Maintenance, 06/13/24 9:00:00 AM EST, Route to Pharmacy Electronically, [facility], Partial fill upon patient request ifthe prescription is for a schedule II opioid drug., 186, cm, 06/12/24 7:57:00 EST, Height, 162.3, kg, 06/09/24 13:31:00 EST, Dry Weight Start Date: 06/13/24 Stop Date: 07/13/24 Status: Ordered Quantity: 30.0 Unit: tablet Repeat number: 1 Trazodone = 100 mg, By Mouth, Daily at bedtime, 0 Refills, Maintenance, 12/10/23 9:55:00 AM EDT, Partial fill upon patient request if the prescription is for a schedule II opioid drug. Start Date: 12/10/23 Status: Ordered Repeat number: 1 valsartan 40 mg oral tablet 20 mg, Tablet, By Mouth, 06/12/24 9:00:00 AM EST Start Date: 06/12/24 Stop Date: 06/12/24 Status: Completed Repeat number: 1 valsartan 40 mg oral tablet 20 mg, By Mouth, 2 times a day, Start taking this tonight on 06/12/2024, # 60 tablet, Refills 0, Tot. Refills 0, Maintenance, 06/12/24 9:00:00 PM EST, Route to Pharmacy Electronically, [facility], Partial fill upon patient request if the prescription is for a schedule II opioid drug., 186, cm, 06/12/24 7:57:00 EST, Height, 162.3, kg, 06/09/24 13:31:00 EST, Dry Weight Start Date: 06/12/24 Stop Date: 07/12/24 Status: Ordered Quantity: 60.0 Unit: tablet Repeat number: 1 Problem List Condition Confirmation Course Effective Dates Status H ealth Status Informant [M] Dysplastic nevus Confirmed Active Bilateral tinnitus Confirmed Active Cluster headache Confirmed Active Poison josé miguel Confirmed Active Scalp cyst Confirmed Active Dermatofibroma Confirmed Active Elevated blood pressure reading Confirmed Active Kellie Confirmed Active Family History of Colonic Polyps 1, 2 Confirmed Active History of kidney stone Confirmed Active Right low back pain Confirmed Active Left low back pain Confirmed Active Major depression in complete remission Confirmed Active Medial epicondylitis of right elbow Confirmed Active Morbid obesity Confirmed Active Obstructive sleep apnea Confirmed Active Cough productive of yellow sputum Confirmed Active Severe obesity Confirmed Active 1Colonoscopy 2023 for positive polyps, repeat 2026. 2colo 2011 nl repeat 2021 Results Radiology Reports * Exam Date Time Procedure Performing Provider Status 06/10/24 5:04 AM MRI Cardiac W+W/O Contrast Alta Mann; Auth (Verified) Notes: (MRI Cardiac W+W/O Contrast) Reason For Exam: Cardiomyopathy Suspected;Other: RESULT: MRI Cardiac W+W/O Contrast Examination: MRI Cardiac W+W/O Contrast. CLINICAL HISTORY:53-year-old male with obesity, JW, and several months of progressive dyspnea on exertion and exercise intolerance, found to have severely reduced left ventricular systolic function on echocardiogram and frequent ectopy with no evidence of obstructive coronary disease who is referred for cardiac MRI to further evaluate etiology of cardiomyopathy.. TECHNIQUE: Cardiac MR infiltrative disease protocol on the [employer] Power 1.5 Chio scanner. Axial ungated FIESTA breath-hold. Multilevel cine FIESTA breathhold imaging performed in the short axis and 2-chamber, 3-chamber, and 4-chamber long axis orientations to evaluate cardiac function. Edema imaging with T2 mapping on 3 short axis planes. T1 mapping (MARIELENA) pre-contrast with 3 short axis planes. The patient received 50 cc Prohance (gadoteridol) IV. Multiplanar late gadolinium enhancement phase sensitive inversion recovery T1 imaging performed after a 6-7 minute delay. Ventricular volumes based upon semiautomated contouring of cine short axis images performed by [employer] using [place] [facility] software. T1 measurements performed using [employer] software. COMPARISON: None. FINDINGS: Good image quality was obtained. LV: The left ventricular chamber size was normal. LV function is globally severely reduced. The mid anterior and mid anteroseptal segments are akinetic. LV wall thickness was normal. LV parameters and (normal ranges of mean +/- 2SD) Jesse et al. J Cardiovasc Magn Reson (2019)22:87 / Men Age 16-83, Papillary muscles included in ventricular volumes: Absolute values: Basal anteroseptal wall thickness: 10 (5-10) mm. Basal inferolateral wall thickness: 8 (4-9) mm. End-diastolic diameter: 68 (44-62) mm. End-diastolic volume: 289 (83-207) mL. End-systolic volume: 233 (19-88) mL. Stroke Volume: 56 (55-127) mL. Ejection fraction: 20 (51-76) %. Cardiac output: 5.1 L/min. Myocardial mass (excluding papillary muscles): 162 (57-152) g. Heart rate: 89.4 bpm. Normalized values based on provided height 185.00 cm, weight 161.90 kg, (Mosteller Formula): 2.88 m2 body surface area: End-diastolic volume index: 100(47-107) mL/m2. End-systolic volume index: 81 (11-47) mL/m2. Stroke volume index: 20 (30-66) mL/m2. Cardiac index: 1.8 (2.1-4.3) L/min/m2. Myocardial mass index: 56 (36-75) g/m2. T2 mapping is mildly degraded by motion artifact, however demonstrates elevated T2 values within the entire septum and apical segments, however elevated T2 values within the apex may be due to volumeaveraging. Grayling T1 mapping reveals elevated global [place] T1 values (6261-8256 ms), with focally elevated [id number] in the entire septum and basal inferolateral segment. T1 values are also elevated in the anterolateral segments, however this may be due to motion artifact. There is a normal post-contrast myocardial nulling pattern. Late gadolinium enhancement examination reveals faint mid myocardial delayed enhancement in the basal septal segments, and subepicardial to mid myocardial delayed enhancement in the basal to mid inferior RV insertion site. There is also hazy mid myocardial delayed enhancement involving the basal inferior and inferolateral segments. RV: The RV chamber was normal. There is severely reduced global RV function. RV parameters and (normal ranges): Absolute values: End-diastolic volume: 217 (87-244) mL. End-systolic volume: 156 (29-117) mL. Stroke Volume: 60 43-146) mL. Ejection fraction: 28 (42-72) %. Cardiac output: 5.4 (2.8-8.3) L/min. Normalized values: End-diastolic volume index: 75 (53-123) mL/m-sq. End-systolic volume index: 54 (17-59) mL/m-sq. Stroke Volume index: 21 (28-75) mL/m-sq. Cardiac index: 1.9 (1.5-4.5) L/min/m-sq. Atria: The right atrium is normal, measuring 19 sq cm on 4 chamber view. The left atrium is normal, with an indexed end systolic volume of 50 mL/m2. Valves: The aortic valve was unremarkable. The pulmonic valve was unremarkable. There is at least mild mitral regurgitation. There is at least mild tricuspid regurgitation. Extracardiac: The pericardium was normal. Small pericardial effusion adjacent to the left ventricle and right atrium. . The thoracic aorta was normal. Incidental Findings: No significant incidental findings were seen. IMPRESSION: 1. Normal left ventricular size and wall thickness. Globally severely reduced left ventricular systolic function. LVEF = 20 %. The mid anterior and mid anteroseptal segments are akinetic while the remaining segments are hypokinetic. Parametric mapping demonstrates elevated T1 and T2 values within the entire septum and elevated T1 in the basal inferolateral segment, which may all represent diffuse myocardial fibrosis or myocardial edema. Post-contrast imaging demonstrates nonischemic appearing faint mid myocardial delayed enhancement in the basal septal segments and hazy mid myocardial delayed enhancement in the basal inferolateral and basal inferior segments. There is also nonspecific subepicardial to mid myocardial delayed enhancement in the inferior RV insertion site. Findings are consistent with nonischemic cardiomyopathy. The overlapping patterns of T1, T2, and delayed enhancement signal abnormalities likely represent myocardial edema from active inflammation such as from myocarditis, or less likely diffuse myocardial fibrosis from a nonischemic process. 2. Normal right ventricular size with severely reduced right ventricular function. RVEF = 28 %. 3. The left atrium is normal in size. The right atrium is normal in size. 4. No evidence of significant valvular abnormality. Phase contrast flow quantitation to calculate regurgitant volumes was not performed. 5. No pericardial thickening or enhancement. There is a small pericardial effusion adjacent to the left ventricle and right atrium. A repeat cardiac MRI in 3-6 months could be considered to evaluate for resolution or persistence ofthe delayed enhancement and parametric mapping findings, which may help discriminate between acute myocardial edema versus chronic fibrosis. Reference [place] global diastolic T1 values (mean +/- SD) for [employer] 1.5T scanner with MARIELENA sequence (50 males, 50 females): Males: 993 +/- 32 ms (normal range 928-1056 ms), Females: 1037 +/- 27 ms (normal range 983-1091 ms). Shayy Rubalcava et. al. Myocardial T1 Values at 1.5 T: Normal Values for [employer] Scanners and Sex-Related Differences. J. MAGN. RESON. IMAGING 2020;54:1486?1500. Reference global diastolic T2 values (mean +/- SD) for [employer] 1.5T scanner with multi-echo FSE sequence (50 males, 50 females): Males: 51.4 +/- 2.6 ms (normal range 46.5-56.8 ms), Females: 53.0 +/- 2.2 ms (normal range 48.6-57.4 ms). Shayy Rubalcava et. al. Myocardial T2 Values at 1.5 T by a segmental approach with healthy aging and gender. Radiology (2021) 32:7830-8128. Reference meta-analysis for normal myocardial T2 values at 1.5 Chio was 52 ms +/- 7ms SD (45-59ms,range +/- 2SD ). Angel et. al. T2 Relaxation Times at Cardiac MRI in Healthy Adults: A SystematicReview and [place]-Analysis. Radiology 2020; 297:344-351. WSN: [id number] Ordering Physician: Bertin Foster Dictated By: Chris Medellin MD Dictated Date/Time: 06/11/24 10:29 a Reviewed By: Chris Medellin MD Signed By: Chris Medellin MD Signed Date/Time: 06/11/24 10:29 am Transcribed By: ECHO Transcribed Date/Time: 06/11/24 9:46 am Vital Signs Most recent to oldest [Reference Range]: 1 2 3 4 Height 186 cm (06/12/24 1:40 PM) 186 cm (06/12/24 7:57 AM) 186 cm (06/12/24 1:01 AM) Weight 161.7 kg (06/11/24 6:11 AM) 162.5 kg (06/10/24 7:00 AM) 162.3 kg (06/09/24 1:02 PM) Oxygen Saturation [94-100 %] 95 % (06/12/24 1:40 PM) 95 % (06/12/24 7:57 AM) 94 % (06/12/24 1:01 AM) Pulse Rate [55-90 bpm] 87 bpm (06/12/24 1:40 PM) 83 bpm (06/12/24 12:32 PM) 90 bpm (06/12/24 8:07 AM) Body Mass Index [18.5-24.99 kg/m2] 46.91 kg/m2 *>HHI* (06/09/24 1:02 PM) Blood Pressure [90-138/55-84 mm Hg] 107/63mm Hg (06/12/24 1:40 PM) 118/71mm Hg (06/12/24 12:32 PM) 116/69mm Hg (06/12/24 8:07 AM) 116/69mm Hg (06/12/24 8:07 AM) Respiratory Rate [16-30 br/min] 18 br/min (06/12/24 1:40 PM) 18 br/min (06/12/24 7:57 AM) 18 br/min (06/12/24 1:01 AM) Temperature [96.8-100.4 DegF] 97.6 DegF (06/12/24 1:40 PM) 97.8 DegF (06/12/24 7:57 AM) 98.1 DegF (06/12/24 1:01 AM) Mode of Delivery (Oxygen) Room air (1/10/25 1:40 PM) Room air (06/12/24 7:57 AM) Nasal CPAP (06/12/24 1:01 AM) Blood pressure sites Arm, left (06/12/24 1:40 PM) Arm, left (06/12/24 7:57 AM) Arm, right (06/12/24 1:01 AM) Temperature Route Temporal (06/12/24 1:40 PM) Oral (06/12/24 7:57 AM) Oral (06/12/24 1:01 AM) Dry Weight 162.3 kg (06/09/24 1:02 PM) Weight Obtained Via Bed scale (06/11/24 6:11 AM) Bed scale (06/10/24 7:00 AM) Bed scale (06/09/24 1:02 PM) Social History Social History Type Response Smoking Status Never smoker entered on: 10/11/15 Sex Sex Representation Male (finding) Note * Kyung Owen RN: PERFORM Event Display: Discharge/Transfer Note Hospital Authored Date: [id number] Nursing Discharge Note Entered On: 06/12/2024 15:57 EST Performed On: 06/12/2024 15:57 EST by Kyung Owen RN Nursing Discharge Note 2 Discharge Time : 06/12/2024 15:55 EST Discharge Level of Care at Discharge : Home/Prison/Foster Care Patient Left Unit Via : Ambulatory Patient Accompanied Off Unit with : Other: self DC Instructions Provided & Signed by Pt : Yes Patient Understands D/C Instructions : Yes Patient Instructions Discharge Signed : Yes Did Pt have Specialty Bed or Wound Vac : No Kyung Owen RN - 06/12/2024 15:57 EST * Shaunna Rodrigues MD: PERFORM Event Display: Discharge/Transfer Note Hospital Authored Date: [id number] Patient: ??RASCON, DIANE ? Age:??53 Years?Sex:??Male?:??1970?? Patient Information Discharge Location: 7 Primary Care Physician: Eunice MINAYA, Luis Daniel Santillan Admit Date/Time: 06/09/2024 12:27 Discharge Disposition Discharge Disposition: Home: No Services Discharge Diagnosis Acute HFrEF (heart failure with reduced ejection fraction) (I50.21) NSVT (nonsustained ventricular tachycardia) (I47.29) Insomnia (G47.00) Mood disorder (F39) JW (obstructive sleep apnea) (G47.33) _ Discharge Medications dapagliflozin (dapagliflozin 10 mg oral tablet)?10?Milligram?By Mouth?Daily?for 30?Days Escitalopram?By Mouth?Daily?20?Milligram Furosemide (furosemide 20 mg oral tablet)?20?Milligram?By Mouth?Daily?for 30?Days Metoprolol (metoprolol 50 mg oral tablet, extended release)?50?Milligram?By Mouth?Daily?for 30?Days Spironolactone (spironolactone 25 mg oral tablet)?12.5?Milligram?By Mouth?Daily?for 30?Days Trazodone?By Mouth?100?Milligram?Daily at bedtime Valsartan (valsartan 40 mg oral tablet)?20?Milligram?By Mouth?2 times a day?for 30?Days?Start taking this tonight on 06/12/2024 ? Medications Started dapagliflozin (dapagliflozin 10 mg oral tablet)?10?Milligram?By Mouth?Daily?for 30?Days Furosemide (furosemide 20 mg oral tablet)?20?Milligram?By Mouth?Daily?for 30?Days Metoprolol (metoprolol 50 mg oral tablet, extended release)?50?Milligram?By Mouth?Daily?for 30?Days Spironolactone (spironolactone 25 mg oral tablet)?12.5?Milligram?By Mouth?Daily?for 30?Days Valsartan (valsartan 40 mg oral tablet)?20?Milligram?By Mouth?2 times a day?for 30?Days?Start taking this tonight on 06/12/2024 Medications Discontinued None Doses Changed None PCP Follow-Up/Heads-Up This patient was seen for acute hypoxic respiratory failure secondary to new onset CHF exacerbationdue to nonischemic cardiomyopathy. Future Appointments Saturday 10:15 AM EST ?? With: Estevan DESIR, Delmar Parish Where: [facility] [address] [place] [address]- Status: Pending Hospital Course 53-year-old male with past medical history significant for obesity, JW, mood disorder who [facility]as a [facility] for cardiomyopathy and NSVT, there he had an echo and wasfound to have an LVEF 15- 20%, he was initiated on GDMT however was transferred [facility] primarily to have a cath. Cath was non-ischemic, so cardiac MRI was performed to evaluate for other causes of cardiomyopathy. The cardiac MRI suggested myocarditis vs infiltrative disease. Patient also had runs of NSVT, however the burden of these resolved with uptitration of his beta clark. The patient discussed having a lifevest fitted however he did not want this. He progressed to euvolemia and was started on GDMT and his NSVT burden lessened significantly. On the day of discharge he was vitally stable, clinically well appearing and medically cleared for discharge home. ?? Objective Assessment and Plan NSVT (nonsustained ventricular tachycardia) (I47.29) Acute HFrEF (heart failure with reduced ejection fraction) (I50.21) ?? --Continue PO furosemide 20mg daily? Continue Jardiance 10 mg daily ?Continue metoprolol 50mg XR daily ?Continue Valsartan 20mg BID -- Entresto 24 mg - 26 mg requires PA which is in process (requires number: [id number]) ?Continue spironolactone 12.5 mg daily ? Follow up with cardiology -- Follow up with PCP ?? JW (obstructive sleep apnea) (G47.33):?? -Continue CPAP ?? Mood disorder (F39) ?Associated with??Insomnia (G47.00) Continue escitalopram 10 mg daily and trazodone 200 mg??daily at bedtime as needed ?? . Physical Exam General:??Alert, NAD Mental Status:??Oriented to person, time and place. Normal affect HEENT:??Normocephalic. PERRL, EOMI. MMM. Neck supple. Respiratory:??Normal work of breathing. CTAB. Cardiovascular: RRR, normal S1 and S2. No murmur. No lower extremity edema. Gastrointestinal:??Normal bowel sounds. Abdomen soft, non-tender, non-distended. No masses Neurologic:??Cranial nerves II-XII grossly intact, no focal neurological deficits. Skin:??No rashes, lesions or ecchymoses?? Extremities:??No gross deformities. Normal range of motion [facility] Pending Results Immunofixation Serum ordered on 06/11/2024 Protein Electrophoresis ordered on 06/11/2024 Protein Electrophoresis Ur Random ordered on 06/11/2024 Patient Education Titles WebMD Ignite Patient Education - Valsartan?? [employer]ite Patient Education - Spironolactone?? WebMD [employer] Patient Education - Furosemide?? WebMD [employer] Patient Education - Dapagliflozin?? WebMD [employer] Patient Education - Metoprolol?? WebMD Ignite Patient Education - Discharge Instructions for Heart Failure?? Patient Instructions You were seen in the hospital for weakening of the heart muscle. You underwent a cardiac catheterization which did not show any blockage in the arteries. You had a cardiac MRI as well which confirmedthat this was not due to loss of blood flow to the heart but the exact cause is still being worked up with cardiology.? On discharge, you will be starting 5 new medications, all of these should be started tomorrow (06/13) except for Valsartan which you should take a 20mg dose of tonight (06/12).?? Medications to start taking:? dapagliflozin (dapagliflozin 10 mg oral tablet)?10?Milligram?By Mouth?Daily?for 30?Days Furosemide (furosemide 20 mg oral tablet)?20?Milligram?By Mouth?Daily?for 30?Days Metoprolol (metoprolol 50 mg oral tablet, extended release)?50?Milligram?By Mouth?Daily?for 30?Days Spironolactone (spironolactone 25 mg oral tablet)?12.5?Milligram?By Mouth?Daily?for 30?Days Valsartan (valsartan 40 mg oral tablet)?20?Milligram?By Mouth?2 times a day?for 30?Days?Start taking this tonight on 06/12/2024 ?? Please follow up with your PCP within 1 week.?? Please return to the emergency department for any chest pain, difficulty breathing, heart palpitations, lightheadedness, dizziness or any other concerning symptoms.?? Please call your ramp agent for weight gain of 3lbs in 2 days or 5lbs in one week.?? Home Health Face to Face ^HomeHealthFTF Results Discharge Labs BLOOD COUNT & DIFF WBC 6.1 k/mm3 ()?? 06/10/2024 00:08 RBC 5.23 m/mm3 ()?? 06/10/2024 00:08 Hgb 13.7 Gm/dL ()?? 06/10/2024 00:08 Hct 43.3 % ()?? 06/10/2024 00:08 MCV 82.8 femtoliters ()?? 06/10/2024 00:08 MCH 26.2 pg (Low)?? 06/10/2024 00:08 MCHC 31.6 Gm/dL (Low)?? 06/10/2024 00:08 Platelet Count 192 k/mm3 ()?? 06/10/2024 00:08 RDW-SD 42.2 femtoliters ()?? 06/10/2024 00:08 MPV 10.1 femtoliters ()?? 06/10/2024 00:08 Nucleated RBC (Automated) 0.0 #/100 WBC'S ()?? 06/10/2024 00:08 Abs. NRBC 0.0 k/mm3 ()?? 06/10/2024 00:08 ?? CARDIAC High Sensitivity Troponin (HSTnT) 8 ng/L ()?? 06/09/2024 19:22 ? CHEM GENERAL Sodium 137 mmol/L ()?? 06/12/2024 00:06 Potassium 4.1 mmol/L ()?? 06/12/2024 00:06 Chloride 100 mmol/L ()?? 06/12/2024 00:06 Bicarbonate Level 24 mmol/L ()?? 06/12/2024 00:06 Anion Gap 13 ()?? 06/12/2024 00:06 Glucose Level 84 mg/dL ()?? 06/12/2024 00:06 BUN 23 mg/dL (High)?? 06/12/2024 00:06 Creatinine-Blood 0.75 mg/dL ()?? 06/12/2024 00:06 Estimated GFR Creatinine 109 ML/MIN/1.73 M2 ()?? 06/12/2024 00:06 Calcium 8.9 mg/dL ()?? 06/12/2024 00:06 Magnesium 2.3 mg/dL ()?? 06/12/2024 00:06 Iron Level 84 mcg/dL ()?? 06/10/2024 07:32 Iron Binding Capacity, Unsaturated 226 mcg/dL ()?? 06/10/2024 07:32 Iron Binding Capacity, Estimated Total 310 mcg/dL ()?? 06/10/2024 07:32 % Iron Saturation 27 % ()?? 06/10/2024 07:32 Ferritin Level 130 ng/mL ()?? 06/10/2024 07:32 ?? HEME OTHER Hold Lavender Top SPECIMEN DISCARDED AFTER 24 HOURS. ()?? 06/12/2024 00:06 ? IMMUNOLOGY GENERAL IgG 693 mg/dL (Low)?? 06/11/2024 12:35 IgA 351 mg/dL ()?? 06/11/2024 12:35 IgM 99 mg/dL ()?? 06/11/2024 12:35 Free [place] Light Chains 22.18 mg/L (High)?? 06/11/2024 12:35 Free Lambda Light Chains 15.80 mg/L ()?? 06/11/2024 12:35 Free KappaRatio 1.40 ()?? 06/11/2024 12:35 Transferrin 250 mg/dL ()?? 06/10/2024 07:32 ? URINE OTHER Est Creatinine Clearance 131.06 mL/min ()?? 06/12/2024 02:58 ? Seen and discussed with attending Shaunna Corea MD PGY1 MedPeds ?? 35??minutes spent on discharge * Daniel RICHARDSON, Darling Freed: PERFORM Event Display: Patient Education/Instruction Authored Date: [id number] Inpatient Adult Discharge Instructions. [place] [id number] Name: DIANE RASCON : 1970?? Visit: 06/09/2024 12:27?? Current Date: 06/12/2024 15:35 ?? Account: [id number]?? Inpatient Adult Discharge Instructions We would like to thank you for allowing us to assist you with your healthcare needs. The following includes patient education materials and information regarding your injury/illness. Our entire staffstrives to provide an excellent experience for our patients and their families. PLEASE ENSURE YOU FOLLOW-UP PER THE INSTRUCTIONS BELOW! ?? YOUR OPINION IS IMPORTANT TO US! Please complete the survey you may receive by mail or email. Your feedback will be used to make improvements to the healthcare experiences of our patients and their families. Surveys are administered by [employer] ?? If further treatment with your primary care physician or another doctor is recommended, it is important for you to keep the appointment. Call your primary care physician or return to the Emergency Department immediately if your condition worsens, fails to improve, or new symptoms develop. If you need to find a doctor, you can call [facility] Link for a referral at [phone] or toll free at [phone] or log in to [email or web address].. ?? [facility], in keeping with [facility] guidance, no longer requires face masks for staff, patientsor visitors in most situations. Similiar to time spent indoors at other locations, there is the chance that you were exposed to repiratory viruses during your time with us (such as flu or COVID-19). If you develop symptoms concerning for a viral respiratory infection, please seek testing (and treatment if indicated) from your medical provider or home test kit. ?? You can view and manage your care through the patient portal or by using a health care rigo of your choosing. [employer] is a website that allows you to securely view your medical information including your hospital discharge summary, office visit summaries, medications and follow-up visits. You can also request appointments, renew medications, and request access to your medical information using a health care rigo of your choosing, or just ask a question. You can enroll at [email or web address] or register during your next office visit. You have been discharged from [facility], Patient Care Unit: M7??. If you have any questions regarding these instructions, including results of studies pending, afteryou leave, please call us and we will be happy to assist you 24/12. [facility] Your Care Team Attending Physician Yadira Harmon MD?? Consulting Providers Yadira Harmon MD?? Discharging Providers Shaunna Rodrigues MD Your Diagnosis Acute HFrEF (heart failure with reduced ejection fraction) Insomnia Mood disorder NSVT (nonsustained ventricular tachycardia) JW (obstructive sleep apnea) Tests Performed Below is a partial list of the tests performed during your hospitalization. You may have had other tests and procedures not included in this list. Please discuss all test results with your provider. Basic Metabolic Panel BUN CBC Creatinine Electrolytes Ferritin Free [place] and Lambda Light Chains High??Sensitivity??Troponin T HOLD LAVENDER TUBE Immunofixation Serum?-- Results Pending -- Iron + Iron Binding Capacity Magnesium Level Transferrin MRI Cardiac W+W/O Contrast BUN?? Basic Metabolic Panel?? CBC?? Creatinine?? Electrolytes?? Ferritin?? Free [place] and Lambda Light Chains?? High??Sensitivity??Troponin T?? Hold Lavender Top Tube (HOLD LAVENDER TUBE)?? Immunofixation Serum?? Iron + Iron Binding Capacity?? MRI Cardiac W+W/O Contrast?? Magnesium Level?? Protein Electrophoresis (SPEP)?? Protein Electrophoresis Ur Random (Urine UPEP)?? Transferrin?? Primary Care Provider Luis Daniel Dawson MD? Advance Directive Health Care Proxy on File Yes - Health Care Proxy Patient has a Designated Caregiver: No Discharge Vitals Temperature: 97.6 DegF Height: 186 cm Pulse Rate: 87 bpm Weight: 161.7 kg Respiratory Rate: 18 br/min Body Mass Index:??46.91 kg/m2??Critical Systolic Blood Pressure: 107 mm Hg Body surface area: 2.9 Diastolic Blood Pressure: 63 mm Hg ?? Oxygen Saturation: 95 % ?? Studies Pending All studies ordered during this hospital stay have been completed unless listed below. Please discuss all pending results with your provider listed above in these instructions. ?? Immunofixation Serum?? Protein Electrophoresis (SPEP)?? Protein Electrophoresis Ur Random (Urine UPEP)?? What to do next Instructions From Your Doctor You were seen in the hospital for weakening of the heart muscle. You underwent a cardiac catheterization which did not show any blockage in the arteries. You had a cardiac MRI as well which confirmedthat this was not due to loss of blood flow to the heart but the exact cause is still being worked up with cardiology.? On discharge, you will be starting 5 new medications, all of these should be started tomorrow (06/13) except for Valsartan which you should take a 20mg dose of tonight (06/12).?? Medications to start taking:? dapagliflozin (dapagliflozin 10 mg oral tablet)?10?Milligram?By Mouth?Daily?for 30?Days Furosemide (furosemide 20 mg oral tablet)?20?Milligram?By Mouth?Daily?for 30?Days Metoprolol (metoprolol 50 mg oral tablet, extended release)?50?Milligram?By Mouth?Daily?for 30?Days Spironolactone (spironolactone 25 mg oral tablet)?12.5?Milligram?By Mouth?Daily?for 30?Days Valsartan (valsartan 40 mg oral tablet)?20?Milligram?By Mouth?2 times a day?for 30?Days?Start taking this tonight on 06/12/2024 ?? Please follow up with your PCP within 1 week.?? Please return to the emergency department for any chest pain, difficulty breathing, heart palpitations, lightheadedness, dizziness or any other concerning symptoms.?? Please call your ramp agent for weight gain of 3lbs in 2 days or 5lbs in one week.? Orders? 06/12/24 14:43:00 EST?? Scheduled Follow-Up Appointments Saturday 10:15 AM EST ?? With: Estvean DESIR, Delmar Parish Where: [facility] [address] [place] [id number]- Status: Pending You Need to Schedule the Following Appointments Follow Up with??Eunice MINAYA, Luis Daniel Santillan When:??Within 1 week: call to discuss follow up visit Why: Please call for a follow-up appointment Where: [address] [place] [id number]- Discharge Medications DIANE RASCON :1970 Visit Date:06/09/2024 Medications: Please continue your medications until treatment is completed or stopped by your provider. Medications not listed below should be discontinued. Discuss any questions related to medications with your provider. What How Much When Instructions Next Dose New dapagliflozin (dapagliflozin 10 mg oral tablet) 10 Milligram Oral Daily Duration: 30 Days Pickup at [place] [address] In the AM? New Furosemide (furosemide 20 mg oral tablet) 20 Milligram Oral Daily Duration: 30 Days Pickup at [place] [address] In the AM New Metoprolol (metoprolol 50 mg oral tablet, extended release) 50 Milligram Oral Daily Duration: 30 Days Pickup at [place] [address] In the AM New Spironolactone (spironolactone 25 mg oral tablet) 12.5 Milligram Oral Daily Duration: 30 Days Pickup at [place] [address] In the AM New Valsartan (valsartan 40 mg oral tablet) 20 Milligram Oral Twice a day Duration: 30 Days Start taking this tonight on 2024 ?? Pickup at [place] [address] Bedtime tonight Unchanged Escitalopram 20 Milligram Oral Daily In the AM Unchanged Trazodone 100 Milligram Oral Daily at Bedtime Bedtime tonight Pharmacy Information [place] [address]: [address] [place] [address] [phone] ?? What How Much When Comments Stop Taking Nortriptyline 25 Milligram Oral Daily Stop Taking Sumatriptan 100 Milligram Twice a day as needed for Headache Prescription Given During Visit Furosemide (furosemide 20 mg oral tablet) - 20 mg, By Mouth, Daily, # 30 tablet, 0 Refills, [place] [address], [address] [place] [id number] [phone]?? Metoprolol (metoprolol 50 mg oral tablet, extended release) - 50 mg, By Mouth, Daily, # 30 tablet, 0 Refills, [facility], [address] [place] [address] [phone]?? Spironolactone (spironolactone 25 mg oral tablet) - 12.5 mg, By Mouth, Daily, # 30 tablet, 0 Refills, [facility], [address] [place] [address] [phone]?? Valsartan (valsartan 40 mg oral tablet) - 20 mg, By Mouth, 2 times a day, # 60 tablet, 0 Refills, Start taking this tonight on 06/12/2024, [facility], [address] [place] [address] [phone]?? dapagliflozin (dapagliflozin 10 mg oral tablet) - 10 mg, By Mouth, Daily, # 30 tablet, 0 Refills, [facility], [address] [place] [address] [phone]?? Laboratory Results Below is a partial list of the most recent Laboratory test results done prior to this discharge. You may have had other tests and procedures not included in this list. Please discuss all test resultswith your provider. Est Creatinine Clearance - 131.06 mL/min (06/12/2024) Basic Metabolic Panel (06/12/2024) ???Sodium - 137 mmol/L???Potassium - 4.1 mmol/L???Chloride - 100 mmol/L???Bicarbonate Level - 24 mmol/L???Anion Gap - 13???Glucose Level - 84 mg/dL???BUN - 23 mg/dL???Creatinine-Blood - 0.75 mg/dL???Estimated GFR Creatinine - 109 ML/MIN/1.73 M2???Calcium - 8.9 mg/dL BUN (06/10/2024) ???BUN - 22 mg/dL CBC (06/10/2024) ???WBC - 6.1 k/mm3???RBC - 5.23 m/mm3???Hgb - 13.7 Gm/dL???Hct - 43.3 %???MCV - 82.8 femtoliters???MCH - 26.2 pg???MCHC - 31.6 Gm/dL???Platelet Count - 192 k/mm3???RDW-SD - 42.2 femtoliters???MPV - 10.1 femtoliters???Nucleated RBC (Automated) - 0.0 #/100 WBC'S???Abs. NRBC - 0.0 k/mm3 Creatinine (06/10/2024) ???Creatinine-Blood - 0.79 mg/dL???Estimated GFR Creatinine - 107 ML/MIN/1.73 M2 Electrolytes (06/10/2024) ???Sodium - 137 mmol/L???Potassium - 4.1 mmol/L???Chloride - 99 mmol/L???Bicarbonate Level - 25 mmol/L???Anion Gap - 13 Ferritin (06/10/2024) ???Ferritin Level - 130 ng/mL Free [place] and Lambda Light Chains (06/11/2024) ???Free [place] Light Chains - 22.18 mg/L???Free Lambda Light Chains - 15.80 mg/L???Free [place]\LambdaRatio - 1.40 High??Sensitivity??Troponin T (06/09/2024) ???High Sensitivity Troponin (HSTnT) - 8 ng/L HOLD LAVENDER TUBE (06/12/2024) ???Hold Lavender Top - SPECIMEN DISCARDED AFTER 24 HOURS. Iron + Iron Binding Capacity (06/10/2024) ???Iron Level - 84 mcg/dL???Iron Binding Capacity, Unsaturated - 226 mcg/dL???Iron Binding Capacity, Estimated Total - 310 mcg/dL???% Iron Saturation - 27 % Magnesium Level (06/12/2024) ???Magnesium - 2.3 mg/dL Transferrin (06/10/2024) ???Transferrin - 250 mg/dL You will be contacted within 72 hours with your results. Allergies (NKA means No Known Allergies) NKA Problems Active Problems??(18) Bilateral tinnitus?? Cluster headache?? Cough productive of yellow sputum?? Dermatofibroma?? Elevated blood pressure reading?? Family History of Colonic Polyps?? History of kidney stone?? Left low back pain?? Major depression in complete remission?? Medial epicondylitis of right elbow?? Morbid obesity?? Obstructive sleep apnea?? Poison josé miguel?? Right low back pain?? Scalp cyst?? Severe obesity?? Kellie?? [M] Dysplastic nevus?? Education Materials Below is the list of Educational Leaflet Providered with your Discharge Instructions. [employer] Patient Education - Dapagliflozin?? [employer] Patient Education - Ventricular Arrhythmia?? [employer] Patient Education - Heart Failure Nutrition Therapy?? [employer] Patient Education - Low Sodium Choices?? [employer] Patient Education - Heart Failure Discharge Instructions for Heart Failure?? [employer] Patient Education - Heart Failure Zones?? [employer] Patient Education - Heart Failure: Warning Signs of a Flare-Up?? [employer] Patient Education - Heart Failure: Tracking Your Weight?? [employer] Patient Education - Heart Failure: Making Changes to Your Diet?? [employer] Patient Education - Valsartan?? [employer] Patient Education - Spironolactone?? [employer] Patient Education - Furosemide?? [employer] Patient Education - Dapagliflozin?? [employer] Patient Education - Metoprolol?? [employer] Patient Education - Discharge Instructions for Heart Failure?? Valuables and Belongings I fully understand and agree that [facility] accepts no responsibility for all my personal property including clothing, toilet articles, radios, jewelry, dentures, hearing aids, rings, money, or any other property that is in my possession or is brought to me after admission. I understand certain valuables may be placed in a hospital safe for a short period of time. I understand that the hospital is not liable for loss or damage due to accident, fire, or other natural occurrence while said property is in the safe. I accept full responsibility for any personal property that I keep with me, and will not hold the hospital responsible in case of loss or disappearance. I acknowledge that i have been encouraged to send valuables and belongings home. ?? Review of Valuable and Belonging List: With patient Date for Pt to Sign Valuables/Belongings: 06/09/24 12:41:00 ?? Other Discharge Information ? Case Management Discharge Plan?? Discharge Plan?? Discharge Rx Program: Discharge Prescription Program ?? Pulmonary Rehab Status?? Pulmonary Rehab Discharge Status?? Respiratory Rate: 18 br/min ? Common Emergency Awareness Tips IS IT A STROKE? Act FAST and Check for these signs: FACE Does the face look uneven? ARM Does one arm drift down? SPEECH Does their speech sound strange? TIME Call at any sign of stroke ?? Heart Attack Signs Chest discomfort: Most heart attacks involve discomfort in the center of the chest and lasts more than a few minutes, or goes away and comes back. It can feel like uncomfortable pressure, squeezing, fullness or pain. Discomfort in upper body: Symptoms can include pain or discomfort in one or both arms, back, neck, jaw or stomach. Shortness of breath: With or without discomfort. Other signs: Breaking out in a cold sweat, nausea, or lightheaded. Remember, MINUTES DO MATTER. If you experience any of these heart attack warning signs, call to get immediate medical attention! ?? Smoking can increase your chances of developing chronic health problems and can cause harmful effects to other family members in your house. If you smoke, you are strongly encouraged to quit. Please call [facility] [email or web address] Link at [phone] or [phone] ([phone]) or log in to [email or web address] for referrals to smoking cessation programs. ?? 406 Suicide & Crisis Lifeline is available 24/12 if you or someone you know needs to find a reason to keep living. By calling 245 you'll be connected to a skilled, trained counselor at a crisis center in your area. INPATIENT DISCHARGE INSTRUCTIONS SIGNATURE DMITRIY HOUDIANE NUNEZ Location:[facility] Registration Date and Time:06/09/2024 12:27 EST Primary Care Physician: Luis Daniel Dawson MD, Attending Physician: Yadira Harmon MD, I DIANE RASCON, have received the above patient education materials/instructions and have verbalized understanding. If ambulance or transport services are being used I further acknowledge being given a choice of service. ?? If you need to contact me, please call me at this number: . Patient/Communications Superintendent Name: Patient/Communications Superintendent Signature: Relationship to Patient: Witness Name/Signature: Date: * Darling Sanchez RN: PERFORM Event Display: Patient Education Leaflets Authored Date: [id number] Dapagliflozin ?? [id number] Dapagliflozin Brand Name(s): Farxiga??, Qtern?? (as a combination product containing Dapagliflozin, Saxagliptin),Qternmet?? XR (as a combination product containing Dapagliflozin, Metformin, Saxagliptin), Xigduo??XR (as a combination product containing Dapagliflozin, Metformin) ?? WHY is this medicine prescribed? Dapagliflozin is used along with diet and exercise, and sometimes with other medications, to lower blood sugar levels in adults and children 10 years of age and older with type 2 diabetes (condition in which blood sugar is too high because the body does not produce or use insulin normally). It is also used to reduce the risk of needing to be hospitalized for heart failure in adults who have type 2 diabetes along with heart and blood vessel disease or who have multiple risk factors for developing heart and blood vessel disease. Dapagliflozin is also used in adults with heart failure to reduce the risk of needing to be hospitalized and due to heart and blood vessel disease. It is also used to reduce the risk of worsening kidney disease, the need to be hospitalized for heart failure, and the risk of due to heart disease in adults with kidney disease. Dapagliflozin is in a classof medications called sodium-glucose co-transporter 2 (SGLT2) inhibitors. It lowers blood sugar by c ausing the kidneys to get rid of more glucose in the urine. Dapagliflozin is not used to treat type1 diabetes (condition in which the body does not produce insulin and, therefore, cannot control theamount of sugar in the blood) or diabetic ketoacidosis (a serious condition that may develop if high blood sugar is not treated). Over time, people who have diabetes and high blood sugar can develop serious or life-threatening complications, including heart disease, stroke, kidney problems, nerve damage, and eye problems. Taking dapagliflozin, making lifestyle changes (e.g., diet, exercise, quitting smoking), and regularly checking your blood sugar may help to manage your diabetes and improve your health. This therapy may also decrease your chances of having a heart attack, stroke, or other diabetes-related complications such as kidney failure, nerve damage (numb, cold legs or feet; decreased sexual ability in men and women), eye problems, including changes or loss of vision, or gum disease. Your doctor and other healt hcare providers will talk to you about the best way to manage your diabetes. HOW should this medicine be used? Dapagliflozin comes as a tablet to take by mouth. It is taken usually with or without food once a day. Take dapagliflozin at around the same time every day. Follow the directions on your prescriptionlabel carefully, and ask your doctor or pharmacist to explain any part you do not understand. Take dapagliflozin exactly as directed. Do not take more or less of it or take it more often than prescribed by your doctor. Your doctor may start you on a low dose of dapagliflozin and increase your dose if needed. Dapagliflozin helps to control your condition, but does not cure it. Continue to take dapagliflozineven if you feel well. Do not stop taking dapagliflozin without talking to your doctor. Your doctor or pharmacist will give you the [employer]'s patient information sheet (Medication Guide) when you begin treatment with dapagliflozin and each time you refill your prescription. Read the information carefully and ask your doctor or pharmacist if you have any questions. You can also visit the Food and Drug Administration (FDA) website (https://www.fda.gov/Drugs/DrugSafety/kps060078.htm) to obtain the Medication Guide. Are there OTHER USES for this medicine? This medication may be prescribed for other uses; ask your doctor or pharmacist for more information. What SPECIAL PRECAUTIONS should I follow? Before taking dapagliflozin, ??? tell your doctor and pharmacist if you are allergic to dapagliflozin, any other medications, orany of the ingredients in dapagliflozin tablets. Ask your pharmacist or check the Medication Guide for a list of the ingredients. ??? tell your doctor and pharmacist what other prescription and nonprescription medications, vitamins, nutritional supplements, and herbal products you are taking or plan to take. Your doctor may need to change the doses of your medications or monitor you carefully forside effects. ??? tell your doctor if you regularly drink alcohol or sometimes drink large amounts of alcohol in a short time (binge drinking), if you are on a low sodium diet, or if you have an infection. Also tell your doctor if you have or have ever had heart failure, pancreatic disease including pancreatitis (swelling of the pancreas) or have had surgery on your pancreas, urinary tract infections or problems urinating, low blood pressure, yeast infections in the genital area, or kidney or liver disease. If you are male, tell your doctor if you have never been circumcised. Also, tell your doctor if you are eating or drinking less due to illness, surgery or a change in your diet; if you are following a ketogenic diet (a high fat, low carbohydrate diet); or have recently had diarrhea, vomiting, been in the sun too long, or have been sweating a lot, which may cause dehydration (loss of a large amount of body fluids). ??? tell your doctor if you are , plan to become , or are . Do not breastfeed while you are taking dapagliflozin. If you become while taking dapagliflozin, call your doctor. ??? if you are having surgery, including dental surgery,tell the doctor or dentist that you are taking dapagliflozin. Your doctor will probably tell you tostop taking dapagliflozin at least 3 days before a surgery. ??? alcohol may cause a change in bloodsugar. Ask your doctor about the safe use of alcoholic beverages while you are taking dapagliflozin. ??? you should know that dapagliflozin may cause dizziness, lightheadedness, and fainting when youget up too quickly from a lying position. If you have this problem, call your doctor. This problem is more common when you first start taking dapagliflozin. To avoid this problem, get out of bed slowly, resting your feet on the floor for a few minutes before standing up. ??? ask your doctor what todo if you get sick, develop an infection or fever, experience unusual stress, or are injured. These conditions can affect your blood sugar and the amount of dapagliflozin you may need. What SPECIAL DIETARY instructions should I follow? Be sure to follow all exercise and dietary recommendations made by your doctor or dietitian. It is important to eat a healthful diet and exercise regularly. Follow your doctor's instructions about drinking enough fluids throughout the day while you are on this medication. What should I do IF I FORGET to take a dose? Take the missed dose as soon as you remember it. However, if it is almost time for the next dose, skip the missed dose and continue your regular dosing schedule. Do not take a double dose to make up for a missed one. What SIDE EFFECTS can this medicine cause? Dapagliflozin may cause side effects. Tell your doctor if any of these symptoms are severe or do not go away: ??? urinating a lot, including at night ??? stuffy or runny nose ??? sore throat ??? leg or arm pain ??? constipation Some side effects can be serious. If you experience any of these symptoms, call your doctor immediately: ??? frequent, urgent, burning, or painful urination ??? urine that is cloudy, red, pink, or brown ??? strong smelling urine ??? decrease in amount of urine ??? fever, back pain, nausea or vomiting ??? dry mouth, dark urine, decreased sweating, dry skin, and other signs of dehydration ??? pelvic or rectal pain ??? (in women) vaginal odor, white or yellowish vaginal discharge (may be lumpy or look like cottage cheese), or vaginal itching ??? (in men) redness, itching, or swelling of the penis; rash on the penis; foul smelling discharge from the penis; or pain in the skin around the penis ??? feeling tired, weak, or uncomfortable; along with a fever and pain, tenderness, redness, and swelling of the genitals or the area between the genitals and the rectum If you experience any of the following symptoms, stop taking dapagliflozin and call your doctor immediately or get emergency medical treatment: ??? rash ??? hives ??? itching ??? difficulty breathing or swallowing ??? swelling of the face, throat, tongue, lips, mouth, or eyes ??? hoarseness If you experience any of the following symptoms of ketoacidosis, stop taking dapagliflozin and callyour doctor immediately or get emergency medical treatment. If possible, check for ketones in your urine if you have these symptoms, even if your blood sugar is less than 250 mg/dL: ??? nausea ??? vomiting ??? stomach-area pain ??? tiredness ??? difficulty breathing Dapagliflozin can cause dehydration. It is important that you drink plenty of water while taking dapagliflozin. Talk to your doctor or pharmacist about the right amount of water to drink to prevent dehydration while taking dapagliflozin. Dapagliflozin may cause other side effects. Call your doctor if you have any unusual problems whiletaking this medication. If you experience a serious side effect, you or your doctor may send a report to the Food and Drug Administration's (FDA) MedWatch Adverse Event Reporting program online (https://www.fda.gov/Safety/MedWatch) or by phone ( ). What should I know about STORAGE and DISPOSAL of this medication? Keep this medication in the container it came in, tightly closed, and out of reach of children. Store it at room temperature and away from excess heat and moisture (not in the bathroom). It is important to keep all medication out of sight and reach of children as many containers (such as weekly pill minders and those for eye drops, creams, patches, and inhalers) are not child-resistant and young children can open them easily. To protect young children from poisoning, always lock safety caps and immediately place the medication in a safe location ??? one that is up and away and out of their sight and reach. https://www.i.TVndaway.org Unneeded medications should be disposed of in special ways to ensure that pets, children, and otherpeople cannot consume them. However, you should not flush this medication down the toilet. Instead,the best way to dispose of your medication is through a medicine take-back program. Talk to your pharmacist or contact your local garbage/recycling department to learn about take-back programs in your community. See the FDA's Safe Disposal of Medicines website (https://goo.gl/c4Rm4p) for more information if you do not have access to a take-back program. What should I do in case of OVERDOSE? In case of overdose, call the poison control helpline at . Information is also available online at https://www.poisonhelp.org/help. If the victim has collapsed, had a seizure, has trouble breathing, or can't be awakened, immediately call emergency services at 911. What OTHER INFORMATION should I know? Keep all appointments with your doctor and the laboratory. Your doctor will probably order certain laboratory test before and during your treatment to check your body's response to dapagliflozin. Your blood sugar levels should be checked regularly to determine your response to dapagliflozin. Your doctor will order other lab tests, including glycosylated hemoglobin (HbA1c), to check your response to dapagliflozin. Your doctor will also tell you how to check your response to this medication by measuring your blood sugar levels at home. Follow these instructions carefully. Before having any laboratory test, tell your doctor and the laboratory personnel that you are taking dapagliflozin. Because of the way this medication works, your urine may test positive for glucose. You should always wear a diabetic identification bracelet to be sure you get proper treatment in anemergency. Do not let anyone else take your medication. Ask your pharmacist any questions you have about refilling your prescription. It is important for you to keep a written list of all of the prescription and nonprescription (fuuy-sdr-vynuezn) medicines you are taking, as well as any products such as vitamins, minerals, or otherdietary supplements. You should bring this list with you each time you visit a doctor or if you areadmitted to a hospital. It is also important information to carry with you in case of emergencies. This report on medications is for your information only, and is not considered individual patient advice. Because of the changing nature of drug information, please consult your physician or pharmacist about specific clinical use. The [place] [employer] represents that the information provided hereunder was formulated with a reasonable standard of care, and in conformity with professional standards in the field. The [place] [employer] makes no representations or warranties, express or implied, including, but not limited to, any implied warranty of merchantability and/or fitness for a particular purpose, with respect to such information and specifically disclaims all such warranties. Users are advised that decisions regarding drug therapy are complex medical decisions requiring the independent, informed decision of an appropriate health lawn care specialist, and the information is provided for informational purposes only. The entire monograph for a drug should be reviewed for a thorough understanding of the drug's actions, uses and side effects. The [place] [employer] does not endorse or recommend the use of any drug.The information is not a substitute for medical care. AHFS?? Patient Medication Information???. ?? Copyright, 2023. The [place] [employer]??, [address], [address], [place], [place]. All Rights Reserved. Duplication for commercial use must be authorized by [facility]. Selected Revisions: February 21, 2024. AHFS?? Patient Medication Information???. ?? Copyright, 2024 ?? * Daniel RICHARDSON, Darling Freed: PERFORM Event Display: Patient Education Leaflets Authored Date: [id number] Ventricular Arrhythmia ?? 16992 Ventricular Arrhythmia The heart has its own electrical system to regulate the heartbeat. An abnormal change in the rate or pattern of the heartbeat is called an arrhythmia. It can cause the heart to move blood less efficiently. Four chambers hold blood as it moves through the heart. The??2 lower chambers of the heart are called ventricles. Problems with the electrical signals in the heart can make the ventricles beat faster than normal. Ventricular tachycardia (VT) Rapid electrical signals from the ventricles can result in a fast heart rhythm called ventricular tachycardia (VT). ??? With VT, abnormal electrical pathways or circuits form in the ventricles. This can be caused by any disease that damages the heart muscle. Or it can be caused by a problem you've inherited. It's most often seen as a result of a heart attack or coronary artery disease. ??? Electrical signals enter the abnormal circuit and loop around. With each loop, the signal tells the ventricles to contract. This makes the heart beat very fast. The heart may be beating too fast to pump blood. This can cause you to pass out. It can also cause cardiac arrest, leading to sudden .?A less serious form of VT happens when overly excited ventricular muscle cells take over the heart rhythm. The heart is otherwise normal. ??? In some cases, VT develops into ventricular fibrillation.This is the most serious type of arrhythmia. It's fatal if not treated right away. ?? Ventricular fibrillation (VF) At times, electrical signals may be sent so fast and unevenly that the heart muscle quivers and doesn???t beat at all. This is called fibrillation: ??? VF can occur if the ventricles have several abnormal circuits. Or it can happen if the heart muscle is suddenly injured, such as from a heart attack, and becomes electrically unstable. ??? Signals caught in the circuits make the ventricles beat very quickly and unevenly. This keeps the heart muscle from pumping correctly. ??? The heart can get to the point that it can???t pump at all. This is called cardiac arrest. will occur if emergency treatment isn't given to return the heart rhythm to normal. This treatment includes CPR and an energy shock to the heart (defibrillation). ?? Last Reviewed Date: 2023 ?? The [employer]. All rights reserved. This information is not intended as a substitute for professional medical care. Always follow your healthcare professional's instructions. ?? * Daniel RICHARDSON, Darling Freed: PERFORM Event Display: Patient Education Leaflets Authored Date: [id number] Heart Failure Nutrition Therapy ?? 656 ? P repared For: ?? Date: ?? Prepared By: ?? Contact: ? Heart Failure Nutrition Therapy ?This nutrition therapy will help you feel better and support your heart. ?This plan focuses on: ? Limiting sodium in your diet. Salt (sodium) makes your body hold water. When your body holds too much water, you can feel shortness of breath and swelling. You can prevent these symptoms by eating less salt. ??? Limiting fluid in your diet. For some patients, drinking too much fluid can make heart failure worse. It can cause symptoms such as shortness of breath and swelling. Limiting fluids can help relieve some of your symptoms. ??? Managing your weight. Your registered private duty nurse (RDN) canhelp you choose a healthy weight for your body type. ?? You can achieve these goals by: ? Reading food labels to keep track of how much sodium is in the foods you eat. ??? Limiting foods that are high in sodium ??? Checking your weight to make sure you are not retaining too much fluid. ?? Reading the food label:?? How much sodium is too much? The nutrition plan for heart failure usually limits the sodium you get from food and drinks to 2,000 milligrams per day. Salt is the main source of sodium. Read the nutrition label to ?? nd out how much sodium is in 1 serving of a food. ? Select foods with 140 milligrams of sodium or less per serving. ??? Foods with more than 300 milligrams of sodium per serving may not ?? t into a reduced- sodium meal plan. ??? Check serving sizes. If you eat more than 1 serving, you will get more sodium than the amount listed. ?? Cutting back on Sodium ? Avoid processed foods. Eat more fresh foods o Fresh and frozen fruits and vegetables without added juices or sauces are naturally low in sodium. o Fresh meats are lower in sodium than processed meats, such as castillo, sausage, and hot dogs. Read the nutrition label or ask your desktop engineer to help you?? nd a fresh meat that is low in sodium. ??? Eat less salt, at the table and when cooking o Just 1teaspoon of table salt has 2,300 milligrams of sodium o Leave the salt out of recipes for pasta, casseroles, and soups o Ask your RDN how to cook your favorite recipes without sodium ??? Be a smart batter scaler o Look for food packages that say ???salt-free?? or ???sodium-free.?? These items contain less than 5 milligrams of sodium per serving o ???Inmw-vnt-tzlrem?? products contain less than 35 milligrams of sodium per serving o ???Low-sodium?? products contain less than 140 milligrams of sodium per serving o ???Unsalted?? or ???no added salt?? products may still be high in sodium. Check the nutrition label ??? Add flavor to your food without adding sodium o Try lemon juice, pyramid lake juice, fruit juice, or vinegar o Dry or fresh herbs add ???avor. Try basil, bay leaf, dill, leila, parsley, joesph, dry mustard, nutmeg, thyme, and paprika o Pepper, red pepper ???akes, and cayenne pepper can add spice to your meals without adding sodium. Hot sauce contains sodium, but if you use just a drop or two, it will not add up to much o Buy a sodium-free seasoning blend or make your own at home ??? Use caution when you eat outside your home o Restaurant foods can be very high in sodium o Ask for nutrition information. Many restaurants provide nutrition facts on their menus or websites o Let your kier pleater know that you want your food to be cooked without salt. Ask for your salad dressing and sauces to come ???on the side ?? Fluid Restriction ?? Your doctor may ask you to follow a ???uid restriction in addition to taking diuretics (water pills). Ask your doctor how much ???uid you can have. Foods that are liquid atroom temperature are considered a ???uid, such as popsicles, soup, ice cream, and Jell-O. Here are some common conversions thatwill help you measure your ???uid intake everyday: ?? -?? 1,000 milliliters = 1 liter or 4 cups?-?? 1 ???uid ounce = 30milliliters ?? -?? 1 cup = 240 milliliters?-?? 2,000 milliliters = 2 liters or 8 cups ?? -?? 1,500 milliliters = 1?? liters or 6 cups ?? Weight Monitoring ?? Weigh yourself each day. Sudden weight gain is a sign that fluid is building up in your body. Follow these guidelines: ? Weigh yourself every morning. If you gain 3 or more pounds in 1-2 days or 5 or more in pounds within a week, call your doctor. Your doctor may adjust your medicine to get rid of the extra fluid ??? Talk to your doctor or RDN about what a healthy weight is for you ??? Talk to your doctor to findout what type of physical activity is best for you ?? Foods Recommended ? Food Group ?? Recommended Foods Grains Bread with less than 80 milligrams sodium per slice (yeast breads usually have less sodium than those made with baking soda) Homemade bread made with reduced-sodium baking soda Many cold cereals, especially shredded wheat and pu???ed rice Oats, grits, or cream of wheat Dry pastas, noodles, quinoa, and rice Vegetables Fresh and frozen vegetables without added sauces, salt, or sodium Homemade soups (salt free or low sodium) Low-sodium or sodium-free canned vegetables and soups Fruits Fresh and canned fruits Dried fruits, such as raisins, cranberries, and prunes Dairy (Milk and Milk Products) Milk or milk powder Rice milk and soy milk Yogurt, including French yogurt Small amounts of natural, block cheese or reduced-sodium cheese ([place]ian, ricotta, and fresh mozzarella are lower in sodium than others) Regular or soft cream cheese and low-sodium cottage cheese Protein Fresh meats and ?? sh Foods [place] castillo (except if packaged in a sodium solution) (Meat, Canned or packed tuna (no more than 4 ounces at 1 serving) Poultry, Dried beans and peas; edamame (fresh soybeans) Fish, Beans) Eggs or egg beaters (if less than 200 mg per serving) ?? Unsalted nuts or peanut butter Desserts Fresh fruit or applesauce and Snacks [place] food cake ?? Granola bars ?? Unsalted pretzels, popcorn, or nuts ?? Pudding or gelatin with whipped cream topping ?? Homemade rice-crispy treats ?? Vanilla wafers ?? Frozen fruit bars Fats Tub or liquid margarine Unsaturated fat oils (canola, olive, corn, sun???ower, sa???ower, peanut) Condiments Fresh or dried herbs; low-sodium ketchup; vinegar; lemonor pyramid lake juice; pepper; salt-freeseasoning mixes and marinades (salt-free seasoning blend); simple salad dressings (vinegar and oil); salt-free sauces ?? Foods Not Recommended ?? Food Group Foods Not Recommended Grains Breads or crackers topped with salt Cereals (hot/cold) with more than 300 milligrams sodium per serving Biscuits, cornbread, and other ???quick?? breads prepared with baking soda Prepackaged breadcrumbs Self-rising ???ours Vegetables Canned vegetables (unless they are salt free or low sodium) Frozen vegetables with seasoning and sauces Sauerkraut and pickled vegetables Canned or dried soups (unless they are salt free or low sodium) [place] Citizen fries and onion rings Fruits Dried fruits preserved with sodium-containing additives Dairy (Milk and Milk Products) Buttermilk Processed cheeses Cottage cheese (unless a low-sodium variety) Feta cheese; shredded cheese (has more sodium than block cheese); ???singles?? slices and string cheese Protein Foods (Meat, Poultry, Fish, Beans) Cured meats: castillo, ham, sausage, pepperoni, and hot dogs Canned meats: chili, Suzanne sausage, sardines, and ham Smoked ?? sh and meats Frozen meals that have more than 600 milligrams sodium Fats Salted butter or margarine Condiments Salt, sea salt, kosher salt, onion salt, and garlic salt Seasoning mixes containing salt (Lemon Pepper or Bouillon cubes) Catsup or ketchup, BBQ sauce, Worcestershire and soy sauce Salsa, pickles, olives, relish Salad dressings: ranch, blue cheese, [place], and [place] Citizen Alcohol Check with your doctor. ?? Heart Failure Sample 1-Day Menu ? Breakfast 1 cup regular oatmeal made with water or milk 1 cup reduced-fat (2%) milk 1 medium banana 1 slice whole wheat bread 1 tablespoon salt-free peanut butter Morning Snack 1/2 cup dried cranberries ? Lunch 3 ounces grilled chicken breast 1 cup salad greens [place] oil and vinegar dressing (for greens) 5 unsalted or low-sodium crackers Fruit plate with 1/4 cup strawberries 1/2 sliced orange (for fruit plate) 1 peach half (for fruit plate) ?? Afternoon Snack 1/2 low-sodium turkey sandwich made with: 1 ounce low-sodium turkey 1 piece whole wheat bread ? Evening Meal 3 ounces herb-baked ?? sh 1 baked potato 2 teaspoons soft margarine (trans fat???free) (for potato) Sliced tomatoes 1/2 cup steamed spinach drizzled with lemon juice 3-inch square of nghia food cake Fresh strawberries (2) (for cake) Evening Snack 2 tablespoons salt-free peanut butter 5 low-sodium crackers ?? Notes: ?? * Event Display: Lab Data & Pts Medical History Authored Date: * Event Display: Hemodynamic Procedure Report Authored Date: History and physical note * Event Display: History and Physical Hospital Authored Date: * Event Display: History and Physical Hospital Authored Date: Admission evaluation note * Annie John DO: PERFORM, MODIFY, MODIFY, MODIFY, MODIFY Event Display: Admission Note Authored Date: Patient: ??DIANE RASCON ? Age:??53 Years?Sex:??Male?:??1970?? Chief Complaint/Reason for Consultation [facility] transfer for new onset cardiomyopathy History of Present Illness 53-year-old male with past medical history significant for obesity, JW, mood disorder who presentsas a transfer from [facility] for cardiomyopathy and NSVT. ?? Patient has had several months of worsening dyspnea on exertion, and decreased exercise tolerance.?? He felt like he had abdominal distention.?? He did have COVID approximately 1 month prior to presentation.?? He endorses orthopnea and paroxysmal nocturnal dyspnea.?? Unfortunately he was feeling asthough he was going to at night and this prompted him to present to the emergency department.?The patient states he has been short of breath with exertion??since likely 2022 when he first had COVID.?? He states that he did get better??at some point and was able to mow the lawn, shovel snow??and do his day-to-day activities.?? He does note that he??was noticing at times he was short of breath??but he feels it really became??significant when he had COVID approximately 1 month prior to his presentation.?? He noticed abdominal bloating and distention??with pressure into his chest.?? He is not sure if his legs were swollen that he noted but feels that people??told him they were.?? He has no family history of sudden cardiac or cardiomyopathies that he is aware of. ?? [facility] Course: In the ED the patient was hypoxic to 80% on room air.?? He had an NT proBNP that was elevated to 1578.?? CTA was negative for PE but showed mild pericardial effusion, mild groundglass density in bothupper and lower lobes and small bilateral pleural effusions.?? He was ultimately admitted for acutehypoxic respiratory failure and CHF.?? An echocardiogram revealed reduced LVEF and he was given IV diuresis.?? He was seen by cardiology and noted to have significant runs of NSVT and frequent PVCs on telemetry.?? Softer blood pressures prevented up titration of beta-clark.?? He was ultimately started on GDMT with Entresto, spironolactone, Jardiance and metoprolol succinate.?? He was ultimatelyweaned off oxygen and transferred to [facility] for cardiac catheterization. ?? Echocardiogram 06/04/2024: Moderately dilated LV with severely reduced LV function, LVEF 15 to 20%.??Mildly dilated RV with preserved function.?? Severely dilated left atrium.?? Mild eccentric mitral regurgitation.?? Small to moderate pericardial effusion without tamponade. ?? Patient underwent cardiac catheterization today which showed no significant coronary artery disease with an elevated LVEDP of 21 mmHg. Review of Systems A full review of systems was completed and is otherwise negative except as mentioned in history of present illness. Objective ?? Physical Exam General: Alert, in no acute distress. HEENT: Normocephalic. Extraocular muscles intact.??Moist mucous membranes.?? Neck: Normal movement. ??Challenging JVD assessment Respiratory: Scant bibasilar crackles Cardiovascular: S1S2 regular. No murmurs, rubs or gallops. Abdominal: Abdomen soft, non-tender, non-distended. Normal bowel sounds. Extremities: 1+ lower extremity edema Neurologic: AAOx3, Speech normal. No focal neurological deficits. Skin: No jaundice.?? Assessment/Plan Assessment:??53-year-old male with past medical history significant for obesity, JW, mood disorderwho presents as a transfer from [facility] for cardiomyopathy and NSVT. ? NSVT (nonsustained ventricular tachycardia) (I47.29) ?Associated with??Acute HFrEF (heart failure with reduced ejection fraction) (I50.21) Patient presented with??acute hypoxic respiratory failure??to [facility] in the settingof??acute onset??heart failure Patient has significant??PVCs and NSVT Cardiac catheterization revealed no coronary artery disease No pertinent family history,??no substance use, it is possible that his cardiomyopathy is related to his recent COVID infection, however??in talking to the patient it seems??that his symptoms predated his most recent COVID diagnosis: Patient will likely need cardiac MRI ?? Patient was tolerating GDMT with??Entresto, spironolactone at low-dose??and Jardiance as well aslow-dose metoprolol succinate??at [facility], however up titration of beta-clark was limited by??blood pressure ?? Plan: ??? Cardiology consult? Continue Jardiance 10 mg daily ??? Lasix 40 mg IV twice daily??as patient appears mildly fluid overloaded??on exam and had an elevated LVEDP ?Continue metoprolol 12.5 mg XL daily ?Continue??Entresto 24 mg - 26 mg twice daily ?Continue spironolactone 12.5 mg daily ?Daily weights, strict I's and O's ??? Cardiac telemetry ?? JW (obstructive sleep apnea) (G47.33):??CPAP ?? Mood disorder (F39) ?Associated with??Insomnia (G47.00) Continue escitalopram 10 mg daily and trazodone 200 mg??daily at bedtime as needed ?? VTE Prophylaxis:??Lovenox? Discharge Planning:??Pending??diuresis,??cardiac evaluation ?? Ongoing Medical Necessity:??CHF ?? Code Status:??Full code ?Order Code Status:??Code Status Ordered ? Patient discussed with attending physician, . Annie John PGY-6 Cardiovascular Disease Fellow ? Histories Allergies Allergies ?(Active and Proposed Allergies Only) NKA? (Severity: Unknown severity, Onset: Unknown) ? Past Medical History/Problem List Active Problems(18) Bilateral tinnitus Cluster headache Cough productive of yellow sputum Dermatofibroma Elevated blood pressure reading Family History of Colonic Polyps History of kidney stone Left low back pain Major depression in complete remission Medial epicondylitis of right elbow Morbid obesity Obstructive sleep apnea Poison josé miguel Right low back pain Scalp cyst Severe obesity Kellie [M] Dysplastic nevus ? Past Surgical History Excision scalp cyst: 02/09/20 ? Social History Alcohol Details:??Use: Current. ??Frequency: 1-2 times per month. ??Type: Beer. Employment/School Details:??Status: Employed. 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 Exercise Details:??Self assessment: Fair condition. Home/Environment Details:??Living situation: Home/Independent. ??Lives with: Children, Spouse. Nutrition/Health Details:??Diet: Regular. Sexual Details:??Sexually involved in last 6 months: Yes. ??Sexual orientation: Heterosexual. ??Gender identity: Female. ??Preferred pronoun: He/him. Substance Abuse Details:??Use: Never. Tobacco Details:??Never smoker Details:??Use: Former smoker. ? Family History Mother: Adenomatous polyposis coli; Hyperlipidemia, afib No family history of sudden cardiac or cardiomyopathy ? Medications Home Medications Escitalopram?By Mouth?Daily?10?Milligram Trazodone?By Mouth?200?Milligram?Daily at bedtime ? Results Recent Labs CARDIAC High Sensitivity Troponin (HSTnT) 7 ng/L ()?? 06/09/2024 17:20 ? * Rosalba MINAYA, Rui Otoole: PERFORM Event Display: Admission Note Authored Date: I saw and examined the patient independently on the day of service.?? I have discussed the case andits management with the fellow as documented in the note on the day of service.?? I agree with the fellow's note and plan as documented. EKG study * Event Display: EKG Authored Date: * Event Display: ECG 12-Lead Authored Date: Please click on pdf link to open report * Event Display: ECG 12-Lead Authored Date: Ventricular Rate: 87 BPM Atrial Rate: 87 BPM P-R Interval: 196 ms QRS Duration: 90 ms Q-T Interval: 440 ms QTC Calculation(Bazett): 529 ms P [place]: 33 degrees R [place]: -28 degrees T [place]: 55 degrees Critical Test Result: Long QTc Normal sinus rhythm Inferior infarct , age undetermined Abnormal ECG No previous ECGs available Confirmed by Luis Daniel Baker ([id number]) on 06/10/2024 7:24:06 AM [place]: Luis Daniel Baker Cardiology * Event Display: Cardiac Rhythm Strips Authored Date: * Event Display: Cardiac Rhythm Strips Authored Date: * Event Display: Cardiac Rhythm Strips Authored Date: * Event Display: Cardiac Rhythm Strips Authored Date: * Event Display: Cardiac Rhythm Strips Authored Date: * Event Display: Cardiac Rhythm Strips Authored Date: Hospital Progress note * Kyung Owen RN: PERFORM, SIGN, VERIFY Event Display: Progress Note Hospital Authored Date: Patient: DIANE RASCON Age: 53 years Sex: Male : 1970 Associated Diagnoses: None Author: Kyung Owen RN Findings Problem Related to Alteration in Cardiac Function (new) : Alteration in Cardiac Function/new 06/12/2024 9:00 EST Alteration in Cardiac Status Related to Cardiac Procedure, Dysrhythmia Goals & Outcomes, Cardiac Status Pt will resume/maintain adequate cardiac output, Pt will resume/maintain adequate hemodynamic status, Pt will resume/maintain adequate respiratory function, Pt will resume/maintain intact neuro function, Pt will maintain adequate GI/ function appropriate for pt, Pt will maintain adequate nutrition status Cardiac Interventions Implemented Assess/monitor cardiac status, Assess/monitor neuro status, Assess/monitor respiratory status, Call/Report variances in ECG to provider, Ensure adequate caloric intake, If no bowel movement in 3 days activate bowel regime, Monitor & document daily weight, Monitor anticoagulation values, Monitor ECG w/administration of antiarrhythmics (CO 13.420), Obtain 12 Lead ECG and CXR as ordered, Prep pt for treatments & procedures, Teach/encourage deep breath & cough exercises Goals/Interventions, Cardiac Yes Cardiac, Problem Start 06/09/2024 22:46 Reviewed Plan with, Cardiac Status Patient Patient Progression, Cardiac Status Patient progressing according to plan . Nursing Data Vital Signs : VITAL SIGNS SECTION 06/12/2024 13:40 EST Early Warning Score 4.00 06/12/2024 13:40 EST Temperature 97.6 DegF Temperature Route Temporal Pulse Rate 87 bpm Respiratory Rate 18 br/min Systolic Blood Pressure 107 mm Hg Diastolic Blood Pressure 63 mm Hg Blood pressure sites Arm, left Mean Arterial Pressure 78 mm Hg Pulse Pressure 44 mm Hg Oxygen Saturation 95 % Mode of Delivery (Oxygen) Room air . Narrative/Incidental Pt is alert and oriented x4, ambulating around unit independently. NSR on tele, had 6 beats of VT around 1000, notified, increased metoprolol. LBM 06/10, on room air. Pt to be discharged home today.resting in room at this time, see [facility] for further assessment. . * Gaurav HOLLOWAY, Jyoti Patel: PERFORM Event Display: Progress Note Hospital Authored Date: [id number] Patient: ??DIANE RASCON ? Age:??53 Years?Sex:??Male?:??1970?? History of Present Illness/Interval History Patient seen?? feeling quite well, just tired that he attributes to lack of sleep being in the hospital?? No CP or SOB?? Only one run of NSVT 9 beats since increasing his Metoprolol on review of Tele Physical Exam Vitals & Measurements Weight lb/oz: 356 lb 8 oz General: Well appearing, NAD HEENT: anicteric sclera, ??JVP <10 cm Neuro: Alert and oriented. No focal weakness appreciated. Moving all extremities Psych: Mood and affect appropriate Assessment/Plan Acute HFrEF (heart failure with reduced ejection fraction) Insomnia Mood disorder NSVT (nonsustained ventricular tachycardia) JW (obstructive sleep apnea) Orders: Free [place] and Lambda Light Chains Immunofixation Serum Protein Electrophoresis Protein Electrophoresis Ur Random ? 53 yo gentleman with Obesity, JW, Recent COVID about a month ago, suffering a few weeks of OG, intermittent sharp chest pain, and abdominal bloating.?? He presented to [facility], treated for New CHF and noted to have severely reduced LVEF and runs of NSVT.?? He was started on GDMT and transferred to [facility]??for further workup. His HsTn here is flat 7 followed by 8, it was also flat at [facility] as well.?? Workup included Cath with normal Coronaries.?? cMRI done??with LVEF 25% with findings suggestive of myocarditis versus infiltrative.?? He is still having some runs of NSVT - will uptitrate??BB today.?? If he still has frequent episodes of NSVT, will consider a LifeVest (which he does not seem too excited about).? cMRI reviewed with Dr. Mckeon- despite flat??troponin, this could be Myocarditis from recent COVID.?Infiltrative Process is less likely given LV is not thick.?? Will hold off on further workup for infiltrative disease.?? will plan on GDMT and repeat cMRI in??3 months.?? If findings on cMRI are similar, may have to pursue infiltrative workup via PET scan.? Patient offered LifeVest - he has refused.?V-ectopy has quieted down a bit, will increase his BBas he has BP room.?? He would like to follow up in the [place] location.? NICM - Etiology Unclear.?? recent Covid.?? NSVT ?? -Well compensated?? -continue Valsartan, spironolactone, dapagliflozin?? -Increase Toprol Xl to??50mg PO Daily?? -Patient refusing LifeVest -cMRI in 3 months -NPV with Dr. Mckeon in [place], will also make sure he has close FU within the next month in [place] as well.? d/w Dr. Britton and??Dr. Mckeon?? Problem List/Past Medical History Ongoing Bilateral tinnitus Cluster headache Cough productive of yellow sputum Dermatofibroma Elevated blood pressure reading Family History of Colonic Polyps History of kidney stone Left low back pain Major depression in complete remission Medial epicondylitis of right elbow Morbid obesity Obstructive sleep apnea Poison josé miguel Right low back pain Scalp cyst Severe obesity Kellie [M] Dysplastic nevus Procedure/Surgical History Excision scalp cyst: 02/09/20 Hospital Medications Medications (16) Active SCHEDULED: (9) Dapagliflozin 10 mg Tablet (Dapagliflozin Tablet) ??10 mg, By Mouth, Daily Escitalopram 10 mg Tablet (escitalopram 10 mg oral tablet) ??10 mg, By Mouth, Daily Furosemide 20 mg Tablet (furosemide 20 mg oral tablet) ??20 mg, By Mouth, Daily Heparin 5000 units/mL Inj (1 mL) (Heparin Inj) ??7,500 units 1.5 mL, Subcutaneous Injection, 3 times a day Metoprolol 25 mg XL Tablet (metoprolol 25 mg oral tablet, extended release) ??25 mg, By Mouth, Daily NaCl 0.9% Flush 3ml (NaCL 0.9% Flush) ??3 mL, IV Push, Every 8 hours Spironolactone 25 mg Tablet (spironolactone 25 mg oral tablet) ??12.5 mg, By Mouth, Daily Trazodone 50 mg Tablet (traZODone 50 mg oral tablet) ??100 mg, By Mouth, Daily at bedtime Valsartan 40 mg Tablet (valsartan 40 mg oral tablet) ??20 mg, By Mouth, 2 times a day CONTINUOUS: (0) PRN: (7) Acetaminophen 325 mg Tablet (Acetaminophen Tablet) ??650 mg, By Mouth, Every 4 hours Docusate Sodium 100 mg Capsule (Docusate Sodium Capsule) ??100 mg 1 capsule, By Mouth, 2 times a day Melatonin 3 mg Tablet (Melatonin Tablet) ??3 mg, By Mouth, Daily at bedtime NaCL 0.9% Flush 10ml (Flush NaCl 0.9% (10mL)) ??10 mL, IV Push, Every 8 hours NaCl 0.9% Flush 3ml (NaCL 0.9% Flush) ??3 mL, IV Push, Every 8 hours Polyethylene Glycol 17 Gm Powder (MiraLax Powder) ??17 Gm 1 pack/packet, By Mouth, Daily Senna Tablet ??8.6 mg 1 tablet, By Mouth, 2 times a day Lab Results Cardiology Labs WBC: 6.1 k/mm3 (06/10/24) RBC: 5.23 m/mm3 (06/10/24) Hgb: 13.7 Gm/dL (06/10/24) Hct: 43.3 % (06/10/24) MCV: 82.8 femtoliters (06/10/24) MCH:??26.2 pg??Low (06/10/24) MCHC:??31.6 Gm/dL??Low (06/10/24) Platelet Count: 192 k/mm3 (06/10/24) RDW-SD: 42.2 femtoliters (06/10/24) Nucleated RBC (Automated): 0 #/100 WBC'S (06/10/24) Sodium: 137 mmol/L (06/12/24) Potassium: 4.1 mmol/L (06/12/24) Chloride: 100 mmol/L (06/12/24) Bicarbonate Level: 24 mmol/L (06/12/24) Glucose Level: 84 mg/dL (06/12/24) BUN:??23 mg/dL??High (06/12/24) BUN: 16 mg/dL (01/10/24) Creatinine-Blood: 0.75 mg/dL (06/12/24) Calcium: 8.9 mg/dL (06/12/24) Protein, Total: 6.2 g/dL (01/10/24) Albumin: 3.9 g/dL (01/10/24) Alkaline Phosphatase: 88 IU/L (01/10/24) AST (SGOT): 13 IU/L (01/10/24) ALT (SGPT): 16 IU/L (01/10/24) Bilirubin, Total: 0.7 mg/dL (01/10/24) Cholesterol: 166 mg/dL (01/10/24) Triglycerides: 100 mg/dL (01/10/24) HDL Cholesterol: 43 mg/dL (01/10/24) Non HDL Cholesterol: 123 mg/dL (01/10/24) LDL Chol Calc ([facility]):??105 mg/dL??High (01/10/24) TSH: 1.59 uIU/mL (01/10/24) Free T4: 1.04 ng/dL (01/10/24) Diagnostic Impression MRI MRI Cardiac W+W/O Contrast ?? 09:46:16 IMPRESSION: 1. Normal left ventricular size and wall thickness. Globally severely reduced left ventricular systolic function. LVEF = 20 %. The mid anterior and mid anteroseptal segments are akinetic while the remaining segments are hypokinetic. ?? Parametric mapping demonstrates elevated T1 and T2 values within the entire septum and elevated T1 in the basal inferolateral segment, which may all represent diffuse myocardial fibrosis or myocardial edema. ?? Post-contrast imaging demonstrates nonischemic appearing faint mid myocardial delayed enhancement in the basal septal segments and hazy mid myocardial delayed enhancement in the basal inferolateral and basal inferior segments. There is also nonspecific subepicardial to mid myocardial delayed enhancement in the inferior RV insertion site. ?? Findings are consistent with nonischemic cardiomyopathy. The overlapping patterns of T1, T2, and delayed enhancement signal abnormalities likely represent myocardial edema from active inflammation such as from myocarditis, or less likely diffuse myocardial fibrosis from a nonischemic process. ?? 2. Normal right ventricular size with severely reduced right ventricular function. RVEF = 28 %. 3. The left atrium is normal in size. The right atrium is normal in size. 4. No evidence of significant valvular abnormality. Phase contrast flow quantitation to calculate regurgitant volumes was not performed. 5. No pericardial thickening or enhancement. There is a small pericardial effusion adjacent to the left ventricle and right atrium. ? A repeat cardiac MRI in 3-6 months could be considered to evaluate for resolution or persistence ofthe delayed enhancement and parametric mapping findings, which may help discriminate between acute myocardial edema versus chronic fibrosis. ? Reference [place] global diastolic T1 values (mean +/- SD) for Bindo 1.5T scanner with MARIELENA sequence (50 males, 50 females): Males: 993 +/- 32 ms (normal range 928-1056 ms), Females: 1037 +/- 27 ms (normal range 983-1091 ms). Shayy Rubalcava et. al. Myocardial T1 Values at 1.5 T: Normal Values for [employer] Scanners and Sex-Related Differences. J. MAGN. RESON. IMAGING 2020;54:1486?1500. ?? Reference global diastolic T2 values (mean +/- SD) for General X[employer] Artist 1.5T scanner with multi-echo FSE sequence (50 males, 50 females): Males: 51.4 +/- 2.6 ms (normal range 46.5-56.8 ms), Females: 53.0 +/- 2.2 ms (normal range 48.6-57.4 ms). Shayy Rubalcava et. al. Myocardial T2 Values at 1.5 T by a segmental approach with healthy aging and gender. Radiology (2021) 32:1850-0210. ?? Reference meta-analysis for normal myocardial T2 values at 1.5 [place]io was 52 ms +/- 7ms SD (45-59ms,range +/- 2SD ). Angel et. al. T2 Relaxation Times at Cardiac MRI in Healthy Adults: A SystematicReview and [place]-Analysis. Radiology 2020; 297:344-351. ? WSN: [id number] ? Ordering Physician: Bertin Foster ?? Signed By: Chris Medellin MD ECG ECG 12-Lead ?? 02:19:42 Ventricular Rate: 87 BPM Atrial Rate: 87 BPM P-R Interval: 196 ms QRS Duration: 90 ms Q-T Interval: 440 ms QTC Calculation(Bazett): 529 ms P [place]: 33 degrees R [place]: -28 degrees T [place]: 55 degrees Critical Test Result: Long QTc Normal sinus rhythm Inferior infarct , age undetermined Abnormal ECG No previous ECGs available Confirmed by Luis Daniel Baker ([id number]) on 06/10/2024 7:24:06 AM ?? [place]: Luis Daniel Baker ?? Signed By: Luis Daniel Baker MD ?? ECG 12-Lead ?? 02:19:42 Please click on pdf link to open report ?? Signed By: Samuel MINAYA, Luis Daniel Patel Cardiac Cath Procedure Cardiac Cath Procedure ?? 16:03:00 Conclusions ?? Diagnostic Summary 53-year-old gentleman presenting with new diagnosis of cardiomyopathy. He was getting nonsustained VT at [facility] and was transferred for diagnostic angiography and further workup. ?? Hemodynamics: Normal systemic pressures. Elevated LVEDP 21 mmHg. There is no significant gradient across aortic valve pullback. ?? Coronary anatomy: Right dominant circulation. No significant coronary artery disease. ?? Nonischemic cardiomyopathy. ?? Diagnostic Recommendations Aggressive primary risk factor modification according to ATP III guidelines. Guideline directed medical therapy. Cardiac MRI-for assessment of etiology. ?? ACC Diagnostic Recommendations: Medical therapy and/or counseling. ?? Complications:None. ?? Signatures ?? Signed By: Wilman MINAYA, Lj * Kyung Owen RN: PERFORM, SIGN, VERIFY Event Display: Progress Note Hospital Authored Date: Patient: DIANE RASCON Age: 53 years Sex: Male : 1970 Associated Diagnoses: None Author: Kyung Owen RN Findings Problem Related to Alteration in Cardiac Function (new) : Alteration in Cardiac Function/new 06/11/2024 9:00 EST Alteration in Cardiac Status Related to Cardiac Procedure, Dysrhythmia Goals & Outcomes, Cardiac Status Pt will resume/maintain adequate cardiac output, Pt will resume/maintain adequate hemodynamic status, Pt will resume/maintain adequate respiratory function, Pt will resume/maintain intact neuro function, Pt will maintain adequate GI/ function appropriate for pt, Pt will maintain adequate nutrition status Cardiac Interventions Implemented Assess/monitor cardiac status, Assess/monitor respiratory status,Call/Report variances in ECG to provider, Document & Monitor O2 Sats; Administer O2 as ordered,Ensure adequate caloric intake, If no bowel movement in 3 days activate bowel regime, Monitor &document daily weight, Monitor anticoagulation values, Monitor ECG w/administration of antiarrhythmics (CO 13.420), Obtain 12 Lead ECG and CXR as ordered, Prep pt for treatments & procedures, Teach/encourage deep breath & cough exercises BH Goals/Interventions, Cardiac Yes Cardiac, Problem Start 06/09/2024 22:46 Reviewed Plan with, Cardiac Status Patient Patient Progression, Cardiac Status Patient progressing according to plan . Nursing Data Vital Signs : VITAL SIGNS SECTION 06/11/2024 13:11 EST Temperature 97.1 DegF Temperature Route Temporal Pulse Rate 106 bpm H Systolic Blood Pressure 114 mm Hg Diastolic Blood Pressure 73 mm Hg Blood pressure sites Arm, left Mean Arterial Pressure 87 mm Hg Pulse Pressure 41 mm Hg Oxygen Saturation 94 % Mode of Delivery (Oxygen) Room air . Narrative/Incidental Pt is alert and oriented x4. NSR on tele, oob independent, on room air satting appropriately. LBM 06/10. Pt ambulating around halls. Had 6 beats VT this AM around 0900, provider notified, no further orders. Pt to start PO lasix tomorrow. Voiding clear yellow urine, resting in bed, call light within re ach.... Consult note * Cristian MINAYA, Bertin: PERFORM, MODIFY, MODIFY, MODIFY Event Display: Consultation Note Authored Date: [id number] Patient: ??RASCONDIANE NUNEZ ? Age:??53 Years?Sex:??Male?:??1970?? 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 53 male history obesity, JW, mood disorder transferred from [facility]??for NSVT and cardiomyopathy. ?? Several months worsening OG??and decreased exercise tolerance.?? He noticed abdominal distention.?? Noting orthopnea and PND.?? He felt like he was going to ??at night prompting him to present toED.??He also gained 10lbs in one week. He had COVID??in??[place] 2022??and several times in last year - which is when he started feeling??OG.??He also contacted??COVID-19 1 month prior??to presentation??currently.?? At some point in the year his??breathing was improved??and he was able to mow the lawn, shovel snow and do day-to-day activities. ?? States he is unsure if??had lower extremity edema but was told by??peers that his legs appear larger. ?? At [facility]: Patient hypoxic 80% room air??with BNP??1578.?? CTA negative for PE??but showing mild pericardial effusion,??groundglass opacities??upper and lower lobes??and small bilateral pleural effusions.?? He was admitted??for AHRF/CHF.?? Echocardiogram there showed??newly reduced LVEF??and given IV diuresis.?? He was seen by cardiology there noted to have??runs of NSVT??and frequent PVCs.?? He was titrated on??Entresto, Aldactone, Jardiance??and metoprolol but unable to titrate further due to??soft BP.?? Was weaned off oxygen prior to transfer??to [facility] for cardiac catheterization. ?? At [facility] was tolerating??low-dose??Aldactone, Entresto, Jardiance,??low-dose metoprolol??succinate.?? Up titration was limited by blood pressure ? Social history: No substance use, non-smoker Family history: No family history premature CAD ?? Cardiac Home Meds:??None Current Meds (different than above):??Lasix 40 IV twice daily,??Aldactone 12.5, metoprolol succinate 12.5,??Farxiga,??Entresto 24???26 ?? Data Reviewed: ???Vitals:??Room air,??101/66??heart rate 89???101 ??? Labs:??[facility]??creatinine 0.65,??HST 7???8,??LDL 105,??TSH 1.59 ??? Echo:??Report [facility] 06/04/2024: Moderately??dilated LV with severely reduced LVEF 15-20%. ??Mildly dilated RV with preserved function.?? Severely dilated left atrium.?? Mild eccentric mitral regurgitation.?? Small to moderate pericardial effusion without tamponade. ?Cath:??06/09/2024??angiographically normal coronary arteries, LVEDP 21??mmHg. ??Nonischemic cardiomyopathy Review of Systems Constitutional, Eye, Skin, Head/Neck, ENMT, Respiratory, Cardiovascular, Gastrointestinal, Endocrine, Musculoskeletal, Neurologic, Psych reviewed and negative except as noted in HPI Physical Exam Vitals & Measurements T:??97.0?F?? HR:??89??(Peripheral)?? RR:??20?? BP:??101/66?? SpO2:??95%?? HT:??186??cm?? WT:??162.3??kg?? BMI:??46.91?? Weight lb/oz: 357 lb 13 oz General Appearance: The patient is in NAD. Cardiovascular: RRR S1 and S2 heard with no M/R/G. No JVD. Respiratory:?Breath sounds clear to auscultation bilaterally. No wheezing. Good air movement throughout both lungs. MS:?No edema or erythema in the lower extremities. No wounds seen on the feet. Peripheral sensation intact.?? Neuro:?No slurred speech.?Patient seen moving their upper and lower extremities independently. Psych: Alert and oriented x3. Appropriate and pleasant. CAM negative. Intake and Output Yesterday's Intake Total?120?? Yesterday's Balance?120?? Clinical Range's Intake Total?120?? Clinical Range's Balance ?120?? Assessment/Plan 53 male transferred from [facility] with??HFrEF, newly diagnosed, nonischemic,??and acute decompensation??for further workup of etiology ?? Currently hypervolemic with LVEDP on??LHC??06/09 21 mmHg.?? Nonischemic cardiomyopathy with??angiographically normal coronaries.?? It is possible??his symptoms??and cardiomyopathy could be related to??heart failure??secondary to COVID-19.?He will need MRI.?? NSVT likely secondary to??cardiomyopathy ?? He was tolerating??GDMT well??at [facility] but unable to titrate further due to soft BPs.?? Favor continuing??at this time.?? Pharmacy rejected??order for??Entresto. ??Please discuss with them??reasoning. ? #HFREF, new onset in acute decompensation, EF 15-20% #NICM #NSVT #Obesity #JW on CPAP ? recommendations: ???We will need to get??echo images from [facility] ??? Diuresis:??Agree with 40 mg??twice daily Lasix IV ?Telemetry,??attentive detail to??daily weights, intake and output, oxygen requirements,??electrolyte replenishment ?GDMT:??Continue Entresto 24???26, metoprolol succinate 12.5,??Farxiga,??Aldactone??12.5. Advance metoprolol dose as tolerated given ventricular ectopy ?Please discuss with pharmacy why Entresto rejected ?Obtain??cardiac MRI ???Will discuss with EP for lifevest vs ICD ?Please obtain iron panel, if deficient??and no other contraindications would give IV iron 1000mg course over neck several days ?Get baseline EKG ??? Cardiac rehab ? Findings and plan of care??will be discussed in the morning with??Dr. Britton ?? Bertin Foster MD Cardiovascular Disease Fellow, PGY-4 [facility] [employer] [place] [facility] / Pager: [phone] Allergies NKA Home Medications Escitalopram: 20 mg, By Mouth, Daily Nortriptyline: 25 mg, By Mouth, Daily Sumatriptan: 100 mg, 2 times a day, PRN (Headache) Trazodone: 100 mg, By Mouth, Daily at bedtime Hospital Medications Medications (15) Active SCHEDULED: (9) Dapagliflozin 10 mg Tablet (Dapagliflozin Tablet) ??10 mg, By Mouth, Daily Escitalopram 10 mg Tablet (escitalopram 10 mg oral tablet) ??10 mg, By Mouth, Daily Furosemide Inj (Lasix ??Inj) ??40 mg 4 mL, IV Push Slowly, 2 times a day Heparin 5000 units/mL Inj (1 mL) (Heparin Inj) ??7,500 units 1.5 mL, Subcutaneous Injection, 3 times a day Metoprolol 25 mg XL Tablet (metoprolol 25 mg oral tablet, extended release) ??12.5 mg, By Mouth, Daily NaCl 0.9% Flush 3ml (NaCL 0.9% Flush) ??3 mL, IV Push, Every 8 hours Sacubitril-Valsartan 24 mg-26 mg Tablet (Entresto 24 mg-26 mg oral tablet) ??1 tablet, By Mouth, 2 times a day Spironolactone 25 mg Tablet (spironolactone 25 mg oral tablet) ??12.5 mg, By Mouth, Daily Trazodone 50 mg Tablet (traZODone 50 mg oral tablet) ??100 mg, By Mouth, Daily at bedtime CONTINUOUS: (0) PRN: (6) Acetaminophen 325 mg Tablet (Acetaminophen Tablet) ??650 mg, By Mouth, Every 4 hours Docusate Sodium 100 mg Capsule (Docusate Sodium Capsule) ??100 mg 1 capsule, By Mouth, 2 times a day Melatonin 3 mg Tablet (Melatonin Tablet) ??3 mg, By Mouth, Daily at bedtime NaCl 0.9% Flush 3ml (NaCL 0.9% Flush) ??3 mL, IV Push, Every 8 hours Polyethylene Glycol 17 Gm Powder (MiraLax Powder) ??17 Gm 1 pack/packet, By Mouth, Daily Senna Tablet ??8.6 mg 1 tablet, By Mouth, 2 times a day Lab Results Cardiology Labs WBC: 5.8 x10E3/uL (01/10/24) RBC: 5.22 (01/10/24) Hgb: 14 g/dL (01/10/24) Hct: 45.9 % (01/10/24) MCV: 88 fL (01/10/24) MCH: 26.8 pg (01/10/24) MCHC:??30.5 g/dL??Low (01/10/24) Platelet Count: 177 x10E3/uL (01/10/24) Sodium: 140 mmol/L (01/10/24) Potassium: 4.6 mmol/L (01/10/24) Chloride: 103 mmol/L (01/10/24) Bicarbonate Level: 23 mmol/L (01/10/24) Glucose Level: 97 mg/dL (01/10/24) BUN: 16 mg/dL (01/10/24) Creatinine-Blood:??0.65 mg/dL??Low (01/10/24) Calcium:??8.5 mg/dL??Low (01/10/24) Protein, Total: 6.2 g/dL (01/10/24) Albumin: 3.9 g/dL (01/10/24) Alkaline Phosphatase: 88 IU/L (01/10/24) AST (SGOT): 13 IU/L (01/10/24) ALT (SGPT): 16 IU/L (01/10/24) Bilirubin, Total: 0.7 mg/dL (01/10/24) Cholesterol: 166 mg/dL (01/10/24) Triglycerides: 100 mg/dL (01/10/24) HDL Cholesterol: 43 mg/dL (01/10/24) Non HDL Cholesterol: 123 mg/dL (01/10/24) LDL Chol Calc (NIH):??105 mg/dL??High (01/10/24) TSH: 1.59 uIU/mL (01/10/24) Free T4: 1.04 ng/dL (01/10/24) Diagnostic Impression Cardiac Cath Procedure Cardiac Cath Procedure ?? 16:03:00 Conclusions ?? Diagnostic Summary 53-year-old gentleman presenting with new diagnosis of cardiomyopathy. He was getting nonsustained VT at [facility] and was transferred for diagnostic angiography and further workup. ?? Hemodynamics: Normal systemic pressures. Elevated LVEDP 21 mmHg. There is no significant gradient across aortic valve pullback. ?? Coronary anatomy: Right dominant circulation. No significant coronary artery disease. ?? Nonischemic cardiomyopathy. ?? Diagnostic Recommendations Aggressive primary risk factor modification according to ATP III guidelines. Guideline directed medical therapy. Cardiac MRI-for assessment of etiology. ?? ACC Diagnostic Recommendations: Medical therapy and/or counseling. ?? Complications:None. ?? Signatures ?? Signed By: Lj Stovall MD Problem List/Past Medical History Ongoing Bilateral tinnitus Cluster headache Cough productive of yellow sputum Dermatofibroma Elevated blood pressure reading Family History of Colonic Polyps History of kidney stone Left low back pain Major depression in complete remission Medial epicondylitis of right elbow Morbid obesity Obstructive sleep apnea Poison josé miguel Right low back pain Scalp cyst Severe obesity Kellie [M] Dysplastic nevus Procedure/Surgical History Excision scalp cyst: 02/09/20 Social History Alcohol Use: Current. Frequency: 1-2 times per month. Type: Beer. Employment/School Status: Employed. 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 Exercise Self assessment: Fair condition. Home/Environment Living situation: Home/Independent. Lives with: Children, Spouse. Nutrition/Health Diet: Regular. Sexual Sexually involved in last 6 months: Yes. Sexual orientation: Heterosexual. Gender identity: Female.Preferred pronoun: He/him. Substance Abuse Use: Never. Tobacco Never smoker Family History Mother: Adenomatous polyposis coli; Hyperlipidemia * Bertin Britton DO: PERFORM Event Display: Consultation Note Authored Date: [id number] Attending Attestation:??I have seen and evaluated this patient. ??I have discussed the case and itsmanagement with the fellow and agree with the findings and plan as documented in the fellow???s note.? 53M presenting with several weeks of progressive congestive heart failure symptoms found to be hypoxic with decompensated heart fialure. Inital workup revealed a newly diagnosed severe cardiomyopathywith an LVEF 15-20%. On telemetry monitoring noted to have frequent ectopy with runs of NSVT. He has undergone LHC without any obstrcutive CAD, LVEDP was elevated to 21 mmHg during cath. ?? Etiology of new dilated NICM remains unclear. Read on cMRI pending. GDMT has been initiated. Will monitor ectopy burden on metorpolol which will titrated as needed. If burden continues will consider role of LifeVest on discharge. ?? Patient Care team information Care Team Personnel Name: Amarilys Sullivan RN Position: S RN Member Role: Primary Care Nurse Name: Luis Daniel Dawson MD Position: S Physician - Primary Care Member Role: PCP Address: [address] [place] [phone] Telecom: Name: Tay RICHARDSON, Wei Position: S RN Member Role: Primary Care Nurse Care Team Related Persons Name: ELIO MARTINEZ Name: ANTONIETA RASCON Insurance Providers Guarantor name: DIANE RASCON [facility] Information #: 1 P[facility] Member Number: [id number] Policy Number: NA Group Number: [id number] Health Plan Information #: [address] [facility] Member Number: [id number] Policy Number: NA Group Number: [id number]
--- OUTSIDE RECORDS SUMMARY | 2024-06-23 16:07 | XMS_ITS | Continuity of Care Document ---
Author Name [facility] Organization [facility] Care Team Providers Care Line Assembler Aircraft Name Role Phone DOD-AK Unavailable Unavailable Problems Combined list of problems [...] [facility] Cluster headache (SNOMED CT 119853747) Active Condition [facility] Exposure to potentially hazardous substance (SCT [id number]) Active Condition Dec 02 Entered By: MANUELA ARTEAGA Comment: Entered automatically through [facility] Problem List documentation program [facility] HTN - Hypertension (SCT 47807566) Active Condition [facility]omnia Active Condition [facility] Obesity (SNOMED CT 188599947) Active Condition [facility] Recurrent major depression Active Condition [facility] HYPERTROPHY OF BREAST Inactive Condition 11/17/2004 [facility] ROUTINE MEDICAL EXAM Inactive Condition 11/17/2004 [place] Diagnosis: ICD-10-CM F33.1 Major depressive disorder, recurrent, moderate Active Diagnosis [facility] Diagnosis: ICD-10-CM E66.9 Obesity, unspecified Active Diagnosis [facility] Diagnosis: ICD-10-CM F51.01 Primary insomnia Active [facility] Diagnosis: ICD-10-CM G43.019 Migraine w/o aura, intractable, without status migrainosus Active Diagnosis [facility] Diagnosis: ICD-10-CM H93.19 Tinnitus, unspecified ear Active [facility] Diagnosis: ICD-10-CM Z02.89 Encounter for other administrative examinations Active Diagnosis [facility] Diagnosis: ICD-10-CM F41.1 Generalized anxiety disorder [facility] Diagnosis: ICD-10-CM Z23 Encounter for immunization Active Diagnosis [facility] Diagnosis: ICD-10-CM F50.81 Binge eating disorder Active Diagnosis [facility] Diagnosis: ICD-10-CM I10 Essential (primary) hypertension Active [facility] [place] [facility] Diagnosis: ICD-10-CM G47.30 Sleep apnea, unspecified Active Diagnosis [facility] [place] [facility] Medications Combined list of outpatient medications from [...] FOR VITAMIN SUPPLEME NTATION ORAL ACTIVE 12/02/2024 [id number] DELIA CHRISTIANSEN 2023 100 [facility] NORTRIPTYLI NE HCL 25MG CAP TAKE ONE CAPSULE BY MOUTH AT BEDTIME HEADACHE ORAL 05/23/2024 [id number] 4 GARRY ROCHA 2022 90 [facility] SERTRALINE HCL 50MG TAB TAKE ONE-HALF TABLET BY MOUTH EVERY MORNING FOR 3 DAYS, THEN TAKE ONE TABLET EVERY MORNING FOR DEPRESSI ON ORAL 06/04/2024 [id number] 4 Iggy CHIU 2023 29 [facility] SUMATRIPTAN SUCCINATE 100MG TAB TAKE ONE TABLET BY MOUTH DIRECTED FOR MIGRAINE HEADACHE AT ONSET OF HEADACHE ; MAY REPEAT IN 2 HOURS IF FIRST DOSE IS NOT EFFECTIV E ORAL 05/23/2024 [id number] 4 GARRY ROCHA 2022 18 [facility] SUMATRIPTAN SUCCINATE 50MG TAB TAKE ONE TABLET BY MOUTH DIRECTED FOR MIGRAINE HEADACHE AT ONSET OF HEADACHE ; MAY REPEAT IN 2 HOURS IF FIRST DOSE IS NOT EFFECTIV E ORAL DISCONT INUED (EDIT) 03/13/2024 [id number] 3 DELIA CHRISTIANSEN 2022 9 [facility] TRAZODONE HCL 100MG TAB TAKE ONE TABLET BY MOUTH AT BEDTIME AND TAKE ONE TABLET AT BEDTIME NEEDED FOR INSOMNIA ORAL ACTIVE 05/26/2025 [id number] 4 Iggy CHIU 2023 60 [facility] Immunizations Combined list of available immunizations from the Department of Defense and Veterans Affairs facilities. Immunization Series Date Given Administered By Site Reaction Lot Number CVX Code [employer] Operations Specialist Status Comments Source COVID-19 (MODERNA), MRNA, LNP-S, PF, 50 MCG/0.5 ML (AGES 12+ YEARS) 2023 ZANVETTOR,CESAR BLESSING LEFT DELTO ID [id number] 312 complet ed [facility] FREE 2022 CESAR [place] LEFT DELTO ID [id number] 150 complet ed [facility] [...] Reference Range Date Interpretation Specimen Comments Source FOLATE FOLATE [MASS/VOLUM E] IN SERUM OR PLASMA 11.13 ng/mL 5.2 08/26 Specimen Type: SERUM No comment entered. Ordering Provider: ROBERTO CHRISTIANSEN Report Released Date/Time: Jun 25, 2023 08:42 AM Reporting Lab: [facility] [address] [facility] [address] Performing Lab: [facility] [address] [facility] [address] [facility] THYROID T4 FREE(FT4) THYROXINE (T4) FREE [MASS/VOLUM E] IN SERUM OR PLASMA 0.90 ng/dL 0.6 - 1.6 08/26 Specimen Type: SERUM No comment entered. Ordering Provider: ROBERTO CHRISTIANSEN Report Released Date/Time: Jun 25, 2023 08:42 AM Reporting Lab: [facility] [address] [facility] [facility] [address] Performing Lab: [facility] [address] [facility] [address] [facility] VITAMIN B12 COBALAMIN (VITAMIN B12) [MASS/VOLUM E] IN SERUM OR PLASMA 469 pg/mL 200 - 900 08/26 Specimen Type: SERUM No comment entered. Ordering Provider: ROBERTO CHRISTIANSEN Report Released Date/Time: Jun 25, 2023 08:42 AM Reporting Lab: [address] [address] Performing Lab: [address] [address] [facility] VITAMIN D (25-OH) 25-HYDROXYV ITAMIN D3 [MASS/VOLUM E] IN SERUM OR PLASMA 16 ng/mL 20 - 50 08/26 L Specimen Type: SERUM No comment entered. Ordering Provider: ROBERTO CHRISTIANSEN Report Released Date/Time: Jun 25, 2023 08:42 AM Reporting Lab: [address] [address] Performing Lab: [address] [address] [facility] HEMOGLOBI N A1C PANEL HEMOGLOBIN A1C/HEMOGLO [...] Lab: [facility] [address] [facility] [address] Performing Lab: [facility] [address] [facility] [address] [facility] MAGNESIUM MAGNESIUM [MASS/VOLUM E] IN SERUM OR PLASMA 2.0 mg/dL 1.6 - 2.6 08/26 Specimen Type: SERUM No comment entered. Ordering Provider: ROBERTO CHRISTIANSEN Report Released Date/Time: Jun 25, 2023 08:42 AM Reporting Lab: [facility] [address] [facility] [address] Performing Lab: [facility] [place] [facility] [address] [facility] [address] [facility] CBC LEUKOCYTES [#/VOLUME] IN BLOOD BY AUTOMATED COUNT 5.18 10*3/u L 4.50 - 11.00 08/26 Specimen Type: BLOOD No comment entered. Ordering Provider: ROBERTO CHRISTIANSEN Report Released Date/Time: Jun 25, 2023 08:42 AM Reporting Lab: [facility] [address] [facility] [address] Performing Lab: [facility] [address] [facility] [address] [facility] CBC ERYTHROCYTE S [#/VOLUME] IN BLOOD BY AUTOMATED COUNT 5.10 10*6/u L 4.23 - 5.66 08/26 Specimen Type: BLOOD No comment entered. Ordering Provider: ROBERTO CHRISTIANSEN Report Released Date/Time: Jun 25, 2023 08:42 AM Reporting Lab: [facility] [address] [facility] [address] Performing Lab: [facility] [address] [facility] [address] [facility] CBC HEMOGLOBIN [MASS/VOLUM E] IN BLOOD 14.3 g/dL 12.8 - 17 08/26 Specimen Type: BLOOD No comment entered. Ordering Provider: ROBERTO CHRISTIANSEN Report Released Date/Time: Jun 25, 2023 08:42 AM Reporting Lab: [facility] [place] [facility] [address] [facility] [address] Performing Lab: [facility] [place] [facility] [address] [facility] [address] [facility] CBC HEMATOCRIT [VOLUME FRACTION] OF BLOOD BY AUTOMATED COUNT 43.5 39.2 - 50.4 08/26 Specimen Type: BLOOD No comment entered. Ordering Provider: ROBERTO CHRISTIANSEN Report Released Date/Time: Jun 25, 2023 08:42 AM Reporting Lab: [facility] [place] [address] [address] Performing Lab: [facility] [place] [facility] [address] [facility] [address] [facility] [place] CBC MCV [ENTITIC VOLUME] BY AUTOMATED COUNT 85.3 fL 82 - 99 08/26 Specimen Type: BLOOD No comment entered. Ordering Provider: ROBERTO CHRISTIANSEN Report Released Date/Time: Jun 25, 2023 08:42 AM Reporting Lab: [facility] [place] [address] [address] Performing Lab: [facility] [place] [facility] [address] [facility] [address] [facility] CBC MCHC [MASS/VOLUM E] BY AUTOMATED COUNT 32.9 g/dL 30.8 - 35.1 08/26 Specimen Type: BLOOD No comment entered. Ordering Provider: ROBERTO CHRISTIANSEN Report Released Date/Time: Jun 25, 2023 08:42 AM Reporting Lab: [facility] [place] [address] [address] Performing Lab: [facility] [place] [address] [address] [facility] CBC PLATELETS [#/VOLUME] IN BLOOD BY AUTOMATED COUNT 179 10*3/u L 140 - 360 08/26 Specimen Type: BLOOD No comment entered. Ordering Provider: ROBERTO CHRISTIANSEN Report Released Date/Time: Jun 25, 2023 08:42 AM Reporting Lab: [facility] [address] [facility] [address] Performing Lab: [facility] [address] [facility] [address] [facility] [place] [facility] CBC ERYTHROCYTE DISTRIBUTIO N WIDTH [RATIO] BY AUTOMATED COUNT 12.8 12.0 - 16.0 08/26 Specimen Type: BLOOD No comment entered. Ordering Provider: ROBERTO CHRISTIANSEN Report Released Date/Time: Jun 25, 2023 08:42 AM Reporting Lab: [facility] [place] [address] [address] Performing Lab: [facility] [place] [facility] [address] [facility] [address] [facility] CBC MCH [ENTITIC MASS] BY AUTOMATED COUNT 28.0 pg 26.2 - 32.6 08/26 Specimen Type: BLOOD No comment entered. Ordering Provider: ROBERTO CHRISTIANSEN Report Released Date/Time: Jun 25, 2023 08:42 AM Reporting Lab: [facility] [place] [facility] [address] [facility] [address] Performing Lab: [facility] [address] [facility] [address] [facility] TSH THYROTROPIN [UNITS/VOLU ME] IN SERUM OR PLASMA 1.38 u[IU]/ mL 0.35 - 5.00 08/26 Specimen Type: SERUM No comment entered. Ordering Provider: ROBERTO CHRISTIANSEN Report Released Date/Time: Jun 25, 2023 08:42 AM Reporting Lab: [facility] [place] [address] [address] Performing Lab: [facility] [address] [facility] [facility] [address] [facility] PSA PROSTATE SPECIFIC AG [MASS/VOLUM E] IN SERUM OR PLASMA 1.35 ng/mL 0.00 - 4.00 08/26 Specimen Type: SERUM No comment entered. Ordering Provider: ROBERTO CHRISTIANSEN Report Released Date/Time: Jun 25, 2023 08:42 AM Reporting Lab: [facility] [place] [facility] [address] [facility] [address] Performing Lab: [facility]N [address] [address] [facility]ITAL[facility] LIPID PANEL FASTING CHOLESTEROL [MASS/VOLUM E] IN SERUM OR PLASMA 183 mg/dL 08/26 Specimen Type: SERUM No comment entered. Ordering Provider: ROBERTO CHRISTIANSEN Report Released Date/Time: Jun 25, 2023 08:42 AM Reporting Lab: [facility]TR[facility]ITALUSETS [facility] [address] [facility] [address] Performing Lab: [facility]ENTERTRN [facility]ITALUSE[address] [address] [facility]ITALUSE [facility] LIPID PANEL FASTING TRIGLYCERID E [MASS/VOLUM E] IN SERUM OR PLASMA 112 mg/dL 0 - 150 08/26 Specimen Type: SERUM No comment entered. Ordering Provider: ROBERTO CHRISTIANSEN Report Released Date/Time: Jun 25, 2023 08:42 AM Reporting Lab: [facility]ENTERTRN [facility]WE[facility] [address] [facility] [address] Performing Lab: [facility]ITALRU[facility]N [facility]ITALUSE[address] [address] [facility]ITALUSE [facility] LIPID PANEL FASTING CHOLESTEROL IN LDL [MASS/VOLUM E] IN SERUM OR PLASMA BY CALCULATION 120 mg/dL 0 - 129 08/26 Specimen Type: SERUM No comment entered. Ordering Provider: ROBERTO CHRISTIANSEN Report Released Date/Time: Jun 25, 2023 08:42 AM Reporting Lab: [facility] [place] [facility] [address] [facility] [address] Performing Lab: [facility] [place] [facility] [address] [facility] [address] [facility] LIPID PANEL FASTING CHOLESTEROL .TOTAL/CHOL ESTEROL IN HDL [MASS RATIO] IN SERUM OR PLASMA 4.5 08/26 Specimen Type: SERUM No comment entered. Ordering Provider: ROBERTO CHRISTIANSEN Report Released Date/Time: Jun 25, 2023 08:42 AM Reporting Lab: [facility] [place] [facility] [address] [facility] [address] Performing Lab: [facility] [place] [facility] [address] [facility] [address] [facility] [place] [facility] LIPID PANEL FASTING CHOLESTEROL IN HDL [MASS/VOLUM E] IN SERUM OR PLASMA 41 mg/dL 40 - 60 08/26 Specimen Type: SERUM No comment entered. Ordering Provider: ROBERTO CHRISTIANSEN Report Released Date/Time: Jun 25, 2023 08:42 AM Reporting Lab: [facility] [place] [facility] [address] [facility] [address] Performing Lab: [facility] [place] [facility] [address] [facility] [address] [facility] [place] [facility] Vital Signs Combined list of inpatient and outpatient Vital Signs from Department of Defense and Veterans Affairs, ranging from 12 months to all on record, depending upon the facility. Vital Sign Value Date Comments Source SYSTOLIC BLOOD PRESSURE 135 12/02/19 24 15:14:21 [facility] [place] [facility] DIASTOLIC BLOOD PRESSURE 89 024 15:14:21 [facility] [place] [facility] PULSE OXIMETRY 96 12/02/2023 15:14:21 [facility] [place] [facility] WEIGHT 386 12/02/2023 15[facility]14:21 [facility] BMI 52kg/m2 12/02/2023 15:14:21 [facility] [place] [facility] PAIN 2 12/02/2023 15:14:21 [facility] [id number] 12/24 [facility] En[facility] [id number] Diagnos is: ICD-10- CM Z02.89 Encount er for other adminis trative examina tions<b r/> DIONNA LOUIS 12/25 [facility] En[facility] [id number] 12/31 [facility] En[facility] [id number] ISRAEL PRESTON I 01/03 [facility] En[facility] [id number] 01/09 [facility] En[facility] [id number] 03/06 [facility] En[facility] [id number] 03/13 [facility] OFFICE O/P EST LOW 20-29 MIN [id number] Diagnos is: ICD-10- CM G47.30 Sleep apnea, unspeci fied
Carmen CHRISTIANSEN 03/13 [facility] En[facility] [id number] 04/24 [facility] En[facility] [id number] KIMJaswinderRAMANAELYSSADORIS GRAVES 04/24 [facility] En[facility] [id number] 04/26 [facility] OFF/OP CONSLTJ NEW/[place] HI 55 [id number] Diagnos is: ICD-10- CM G43.019 Migrain e w/o aura, intract able, without status migrain osus
GARRY ROCHA 05/23 [facility] En[facility] [id number] 05/23 [facility] En[facility] [id number] 06/13 [facility] OFFICE O/P EST MOD 30 MIN [id number] Diagnos is: ICD-10- CM I10 Essenti al (primar y) hyperte nsion<b r/> Carmen CHRISTIANSEN 06/25 [facility] PSYCH DIAGNOSTIC EVALUATION [id number] Diagnos is: ICD-10- CM H93.19 Tinnitu s, unspeci fied ear<br/ > Tyrell TAPIA 07/01 [facility] MTMS BY PHARM ADDL 15 MIN [id number] Diagnos is: ICD-10- CM E66.9 Obesity , unspeci fied
GDULA,JANETH A 07/09 [facility] MTMS BY PHARM EST 15 MIN [id number] Diagnos is: ICD-10- CM E66.9 Obesity , unspeci fied
GDULA,JANETH A 07/30 [facility] [place] [facility] En[facility] [id number] 08/07 [facility] En[facility] [id number] 08/12 [facility] [place] OFFICE O/P EST MOD 30 MIN [id number] Diagnos is: ICD-10- CM G43.019 Migrain e w/o aura, intract able, without status migrain osus
GARRY ROCHA 08/21 [facility] En[facility] [id number] 08/21 [facility] PSYTX W PT 60 MINUTES [id number] Diagnos is: ICD-10- CM H93.19 Tinnitu s, unspeci fied ear<br/ > BLAYNE ALVES 08/21 [facility] Outpatient Encounter [id number] 08/29 [facility] PSYTX W PT 45 MINUTES [id number] Diagnos is: ICD-10- CM H93.19 Tinnitu s, unspeci fied ear<br/ > BLAYNE ALVES 09/05 [facility] Outpatient Encounter [id number] 09/05 [facility] PSYTX W PT 45 MINUTES [id number] Diagnos is: ICD-10- CM F51.01 Primary insomni a
MARCI,BR ITTNEY M 09/18 [facility] [place] [place] Outpatient Encounter [id number] 09/24 [facility] PSYTX W PT 45 MINUTES [id number] Diagnos is: ICD-10- CM F50.81 Binge eating disorde r
BLAYNE ALVES 10/03 [facility] PSYTX W PT 45 MINUTES [id number] Diagnos is: ICD-10- CM F50.81 Binge eating disorde r
BLAYNE ALVES 10/17 [facility] [place] OFFICE O/P EST MOD 30 MIN [id number] Diagnos is: ICD-10- CM G43.019 Migrain e w/o aura, intract able, without status migrain osus
GARRY ROCHA 10/29 [facility] Outpatient Encounter [id number] 10/29 [facility] PSYTX W PT 45 MINUTES [id number] Diagnos is: ICD-10- CM H93.19 Tinnitu s, unspeci fied ear<br/ > ALISON TRAN 10/31 [facility] PSYTX W PT 45 MINUTES [id number] Diagnos is: ICD-10- CM F50.81 Binge eating disorde r
ALISON TRAN 11/14 [facility] Outpatient Encounter [id number] NIKIADORIS GRAVES 11/20 [facility] PSYTX W PT 45 MINUTES [id number] Diagnos is: ICD-10- CM F50.81 Binge eating disorde r
ALISON TRAN 11/27 [facility] OFFICE O/P EST LOW 20 MIN [id number] Diagnos is: ICD-10- CM I10 Essenti al (primar y) hyperte nsion<b r/> Carmen CHRISTIANSEN 12/01 [facility] PSYTX W PT 45 MINUTES [id number] Diagnos is: ICD-10- CM F50.81 Binge eating disorde r
ALISON TRAN 12/19 [facility] En[facility] [id number] 01/02 [facility] PSYTX W PT 45 MINUTES [id number] 1. Diagnos is: ICD-10- CM H93.19 Tinnitu s, unspeci fied ear<br/ > ALISON TRAN 01/16 [facility] PSYTX W PT 45 MINUTES [id number] Diagnos is: ICD-10- CM F51.01 Primary insomni a
ALISON TRAN 01/30 [facility] [id number] 02/10 [facility] En[facility] [id number] 02/10 [facility] PSYTX W PT 45 MINUTES [id number] Diagnos is: ICD-10- CM F51.01 Primary insomni a
ALISON TRAN 02/27 [facility] En[facility] [id number] 03/09 [facility] OFF/OP EST OCTOBER X REQ PHY/QHP [id number] Diagnos is: ICD-10- CM Z23 Encount er for immuniz ation<b r/> DORIS OSBORNE 03/09 [facility] PSYTX W PT 45 MINUTES [id number] Diagnos is: ICD-10- CM F41.1 General ized anxiety disorde r
JUAN ALBERTO MARTINEZ 03/13 [facility] Outpatient Encounter [id number] 1. Diagnos is: ICD-10- CM Z02.89 Encount er for other adminis trative examina tions<b r/> FAMILIA JENKINS 03/24 [facility] PSYTX W PT 45 MINUTES [id number] Diagnos is: ICD-10- CM H93.19 Tinnitu s, unspeci fied ear<br/ > RASTA COVARRUBIAS [facility] 03/27 [facility] OFFICE O/P EST MOD 30 MIN [id number] Diagnos is: ICD-10- CM G43.019 Migrain e w/o aura, intract able, without status migrain osus
GARRY ROCHA 03/31 [facility] Outpatient Encounter [id number] 1.03/31 [facility] PSYTX W PT W E/M 30 MIN [id number] 1. Diagnos is: ICD-10- CM F51.01 Primary insomni a
Sydnie BEDOYA BRENNAN B 04/01 [facility] Outpatient Encounter [id number] 04/08 [facility] PSYTX W PT 45 MINUTES [id number] 1. Diagnos is: ICD-10- CM E66.9 Obesity , unspeci fied
ALISON TRAN 04/24 [facility] Outpatient Encounter [id number] [facility] PSYCH DIAG EVAL W/MED SRVCS [id number] Diagnos is: ICD-10- CM F33.1 Major depress suzanne disorde r, recurre nt, moderat e
MILLY CHIU 05/04 [facility] [facility] [place] [facility] PSY[facility] W PT 45 MINUTES [id number] Diagnos is: ICD-10- CM F33.1 Major depress suzanne disorde r, recurre nt, moderat e
ALISON TRAN 05/15 [facility] [place] [facility] [place] [facility] OFFICE O/P EST SF 10 MIN [id number] Diagnos is: ICD-10- CM F33.1 Major depress suzanne disorde r, recurre nt, moderat e
MILLY CHIU 05/25 [facility] [place] [facility] [place] [facility] W PT 45 MINUTES [id number] Diagnos is: ICD-10- CM F33.1 Major depress suzanne disorde r, recurre nt, moderat e
ALISON TRAN 06/12 [facility] [place] [facility] Social History Combined list of available smoking, tobacco, and other social history from Department of Defense and Veterans Affairs facilities. Social History Type Response Date Comment Source Tobacco smoking status NHIS VA-TOBACCO QUIT 15 YRS OR MORE 04/01/2024 [place] [facility] [place] [facility] History of tobacco use AK-TOBACCO FORMER USER 04/01/2024 [facility] [place] [facility] History of tobacco use AK-TOBACCO FORMER USER 01/09/2023 [facility] [place] [facility] History of tobacco use LIFETIME NON-TOBACCO USER [facility]04[facility] [place] [facility] History of tobacco use QUIT TOBACCO USE > 7 YEARS AGO 12/26/2015 quit in 1997 [facility] [place] [facility] History of tobacco use HISTORY OF SMOKING 10/27/2003 Smoke free 6 years [facility] [place] [facility] History of tobacco use HISTORY OF SMOKING 01/02/2002 [facility] [place] [facility] History of tobacco use HISTORY OF SMOKING 01/14/2001 non smoker 4 [facility] [place] [facility] Plan of Care List of future care activities from Department of Veterans Affairs facilities. Additional future care activities may be listed in the Assessment and Plan section. Date/Time Care Activity Care Activity Detail Facili ty 06/26/2024 AMBULATORY - PSYCHIATRY AMBULATORY - PSYC HIATRY [place] [facility] [facility] 07/06/2024 AMBULATORY - PSYCHIATRY AMBULATORY - PSYC HIATRY [place] [facility] [facility] 07/07/2024 AMBULATORY - NEUROLOGY AMBULATORY - NEURO [facility] 12/14/2024 AMBULATORY - MEDICINE AMBULATORY - MEDICI [facility] [place] [facility]
--- OUTSIDE RECORDS SUMMARY | 2024-06-23 16:07 | XMS_ITS ---
Author Name Department of [place] Organization [place] Address [address] [place] [address] Care Team Providers Care Senior Service Aide Name Role Phone DELIA CHRISTIANSEN Primary Care Provider [facility] Insurance Providers: All historical and current Section [...] Patient's Relationship to Policy Garner [facility] CE ORGANIZAT ION [facility] Apr 03, 2012 [id number] [phone] [id number] DIANE RASCON [facility] ORGANIZAT ION HEALT H [facility] Dec 02, 2023 [id number] [phone] WILDA RASCON NATURAL CHILD OPTUM RX PRESCRIPT ION [facility] Dec 02, 2023 [facility] [id number] [phone] WILDA RASCON NATURAL CHILD Selected Encounter This section includes the information on record at [place] for the Encounter. Date/Time Encounter Type Encounter Description Reason Provider Source Jun 12, 2024 02:00 PM PSYTX W PT 45 MINUTES [facility] - IND ICD-10-CM F33.1 Major depressive disorder, recurrent, moderate TARIQ TRAN [facility] Encounter Template Text not used by [place] Assessments - Encounter Diagnoses This section includes the primary and secondary diagnoses documented for the Encounter. Date/Time Primary/Secondary Diagnosis Diagnosis Name Provider Source Jun 12, 2024 03:01 PM PRIMARY Major depressive disorder, recurrent, moderate PENNYDELILAH BUCKLEY Ziyad [facility] Jun 12, 2024 03:01 PM SECONDARY Generalized anxiety disorder DELILAH FRANCIS Ziyad [facility] Plan of Treatment: Future Appointments (+ 6 months) and Future Tests (+/- 45 days) The Plan of Treatment section includes future care activities for the patient from all [place] [facility]. This section includes future appointments and future orders which are active, pending or scheduled. Future Appointments This section includes appointments that were scheduled to occur 6 months from the date of the Encounter, up to a maximum of 20 appointments. The data comes from all [place] treatment facilities. Appointment Date/Time Appointment Type Appointme nt Facility Name Jun 26, 2024 02:00 PM AMBULATORY - PSYCHIATRY [facility] Jul 06, 2024 11:30 AM AMBULATORY - PSYCHIATRY [facility] Jul 07, 2024 01:30 PM AMBULATORY - NEUROLOGY [facility] Jul 07, 2024 01:30 PM AMBULATORY - NEUROLOGY [facility] Social History: Smoking Status (Most current) and Tobacco Use (All prior to encounter date) This section includes the most current, and the historical, smoking and tobacco- related health factors from the [place] facility where the Encounter took place. Current Smoking Status This section includes the most current smoking, or tobacco-related health factor, from the [place] facility where the Encounter took place. Date/Time Current Smoking Status Comment [facility] Apr 01, 2024 08:30 AM VA-TOBACCO FORMER USER [facility] Tobacco Use History This section includes a history of the smoking, or tobacco-related health factors, that were collected on or before the date of the Encounter. The data comes from the [place] facility where the Encounter took place. Date/Time Smoking Status/Tobac co Use Comment Facility Apr 01, 2024 08:30 AM [place]-TOBACCO QUIT 15 YRS OR MORE [facility] Jan 09, 2023 05:09 PM VA-TOBACCO [facility] Jan 09, 2023 05:09 PM VA-TOBACCO QUIT 15 YRS OR MORE [facility] Jan 04, 2017 07:42 AM LIFETIME NON-TOBACCO [facility] Dec 26, 2015 09:20 AM QUIT TOBACCO USE > 7 YEARS AGO [facility] October 27, 2003 03:29 PM HISTORY OF SMOKING Smoke free 6 years [facility] Jan 02, 2002 08:56 AM HISTORY OF SMOKING [facility] Jan 02, 2002 08:56 AM QUIT TOBACCO USE > 7 YEARS AGO [facility] Jan 14, 2001 11:25 AM HISTORY OF SMOKING non smoker 4 years [facility] Encounter Notes: All associated encounter notes This section contains the clinical notes associated to the Encounter. Date/Time Encounter Note(s) Provider Source Jun 12, 2024 02:53 PM TELEHEALTH NOTE: LOCAL TITLE: [place] VIDEO CONNECT PSYCHOLOGY NOTE STANDARD TITLE: TELEHEALTH NOTE DATE OF NOTE: JUN 12, 2024@14:53 ENTRY DATE: JUN 12, 2024@14:53:48 AUTHOR: DELILAH FRANCIS COSIGNER: TARIQ TRAN URGENCY: STATUS: COMPLETED [place] VIDEO CONNECT PSYCHOLOGY NOTE Has ADDENDA This case is supervised by Dr. Tariq Tran, staff psychologist in the [facility]. Diagnosis, treatment plan, and response to care are reviewed on an ongoing basis in weekly individual supervision meetings. IDENTITY VERIFICATION [X] Patient Name [X] Visual recognition [ ] Birthdate [ ] Social Security # This was a 45 minute individual psychotherapy appointment on 06/12/2024 in the treatment of depression, anxiety and insomnia. DATA: The [place] shared that he was attending the session from a room at [facility] where he had been for the past 9 or so days due to health issues. He shared that in the past several weeks he had both an emotional and then physical breakdown. We processed some conflict with his family that had resulted in significant emotional distress for the [place], making him feel like he was being blamed for everything in his family. This fortunately resolved with some time, but shortly thereafter the started experiencing issues with his breathing. He presented to the emergency room where he was diagnosed with congestive heart failure. Over the past week in the hospital he has stabilized and is expecting to be discharged shortly. We processed his treatment plan, which includes medication and some significant lifestyle changes (diet/exercises). We processed his feeling about the past several weeks. ASSESSMENT: The was on time to the appointment and was fully engaged. Grooming and dress were WNL. Gross motor function was WNL. Mood was euthymic and affect was congruent. Speech was normal in rate, tone and prosody. Insight and judgement were intact. There was no evidence of A/VH or thought disorder. The reported an increase in thoughts about during his emotional breakdown several weeks ago, but denied ever having suicidal plan or intent. He denied current SI and endorsed feeling more hopeful at present. PLAN: [place] will RTC for individual psychotherapy on 06/26/2024 with provider, Dr. Delilah Francis. [place] [employer] ([facility]) Standard Documentation [facility] Clinician Resources Only: E911 (Emergency Call Relay Center): [phone] National Veterans Crisis Line - 988 then press #1. [facility] Suicide Coordinator [phone], Ext. [phone]; Back-up Ext. [phone] [place] Police, [place] [phone] Introduction: Visit is being conducted by [employer]. [place] identified with 2 identifiers: [X] Full Name [ ] Date of [ ] VA ID Card [X] Visual Recognition Emergency Plan: confirmed and/or provided the following information in case of emergency or technology failure. PATIENT PHONE - PHONE NUMBER [CELLULAR] - Is patient phone number correct, if not, enter below: [place]'s phone number: DIANE M [address], [place], [address] [place]'s present location and address for appointment: [address] [address] 's emergency contact name and phone number: Wilda Tarah reported that location is private and safe: Yes Informed Consent: informed of the risks and benefits of Telehealth video care. has the right to refuse video services. If refuses video visit, a [id number]-lk-[id number] visit will be scheduled. [place] verbalized consent for this video visit: Yes provided consent for any other persons present for visit: N/A If yes, who and relationship to patient: Secure visit: Visit was locked for security and privacy:Yes /blair/ DELILAH FRANCIS, PHD [facility] Post-Doctoral Psychology Trainee Signed: 06/12/2024 15:00 /blair/ TARIQ TRAN PSYD PSYCHOLOGIST Cosigned: 06/12/2024 16:35 Receipt Acknowledged By: 06/15/2024 14:28 /blair/ VIKTOR CHIU MD PSYCHIATRIST 06/12/2024 ADDENDUM STATUS: COMPLETED I have reviewed this case and concur with the clinical impressions and recommendations made by this trainee who is under my clinical supervision. /blair/ TARIQ TRAN PSYD PSYCHOLOGIST Signed: 06/12/2024 16:35 DELILAH FRANCIS [place] [facility]
== END 2024-06-23 15:11 | disposition home or self-care (01) ==
PROVIDERS: PCP Internal Medicine
DX: I50.9 Heart failure, unspecified (principal); G47.33 Obstructive sleep apnea (adult) (pediatric); Z09 Encounter for follow-up examination after completed treatment for conditions other than malignant neoplasm
CPT/HCPCS: 99214

== ENCOUNTER → 2024-06-23 14:05 | Outpatient (BNVA) | payer OTHER, SELFPAY | PROVIDERS: PCP Internal Medicine ==

== ENCOUNTER → 2024-09-07 14:43 | Outpatient (REF) | payer OTHER, SELFPAY ==
--- NOTE | 2024-09-07 14:45 | CA_ITS ---
Transthoracic Echocardiogram Patient (Last, First, Middle): Bruno Stoddard, Gender: Male Date of : 1970 Age: 54 Procedure Date: 09/07/2024 Procedure Type: Transthoracic Echocardiogram Location: OP Height: 185. cm Weight: 147.87 kg BSA: 2.64 m2 Heart Rate: 55 bpm BP: 90 / 65 mmHg [place] Ma[place]: LUIS Referring MD: Niraj Montano NP Symptoms: I50.9 - Heart failure, unspecified Study Quality: Fair ECG Rhythm: Bradycardia Conclusions: - The left ventricular systolic function is mildly decreased. The calculated ejection fraction is 49% by biplane method. - No obvious valvular pathology seen on this study. Findings Left Ventricle Normal left ventricular cavity size. There is normal left ventricular wall thickness. The left ventricular systolic function is mildly decreased. The calculated ejection fraction is 49% by biplane method. There is mild global hypokinesis. Diastolic function is normal for age. Right Ventricle Mildly increased right ventricular cavity size. There is low normal right ventricular systolic function. Atria Both atria are normal in size. Aortic Valve There is a normal trileaflet aortic valve. There is no aortic valve stenosis. There is no aortic valve regurgitation. Mitral Valve The mitral valve appears normal. There is no mitral valve regurgitation. There is no mitral valve stenosis. Pulmonic Valve The pulmonic valve is likely normal. Tricuspid Valve Normal tricuspid valve structure. There is trace tricuspid valve regurgitation. There is no evidence of pulmonary hypertension. Great Vessels The asc aorta and aortic arch are normal in size. Venous The inferior vena cava is mildly dilated and collapses greater than 50% with inspiration. Pericardium/Pleural There is a trivial pericardial effusion. Prior Study Comparison Changes noted compared to prior study dated: 06/05/2024. Recommendations, Care & Conclusions No obvious valvular pathology seen on this study. Measurements 2D Linear Measurements IVSd: 1.00 0.6-0.9/0.6-1.0 cm LVIDd: 6.09 3.9-5.3/4.2-5.9 cm LVIDd Index: 2.31 2.4-3.2/2.2-3.1 cm/m2 LVIDs: 4.46 2.0-3.6 cm LVPWd: 0.97 0.7-1.1 cm LA Diam: 4.60 2.7-3.8/3.0-4.0 cm LAIDs Index: 1.74 1.5-2.3 cm/m2 LV Mass: 310.46 67-162/88-224 g LV Mass Index: 117.60 43-95/49-115 g/m2 LVOT Diam: 2.40 3.0+(-)1.3 cm 2D Systolic Function EF 4C: 49.80 >55% EF 2C: 48.30 >55% EF BiP: 48.70 >55% Mitral Valve MV Pk E: 0.68 MV PK A: 0.45 MV Decel Time: 280.00 E/A: 1.50 E'Lateral: 9.90 E'Medial: 5.98 E/E' Med: 11.40 E/E' Lat: 6.90 PHT: 82.00 MVA PHT: 2.68 Decel Hinds: 2.43 Aortic Valve AoV Pk Rei: 1.16 AoV Mn Rei: 0.98 AoV VTI: 0.29 AoV Pk Grad: 5.00 Aov Mn Grad: 4.00 SHE Cont.VTI: 3.75 LVOT LVOT Pk Rei: 1.01 LVOT Mn Rei: 0.75 LVOT VTI: 0.24 LVOT Pk Grad: 4.00 LVOT Mn Grad: 3.00 LVOT Diam: 2.40 LVOT Area: 4.52 Diastolic Function MV Pk E: 0.68 MV Pk A: 0.45 E/A: 1.50 E'Medial: 5.98 E/E' Med: 11.40 E' Laterial: 9.90 E/E' Lat: 6.90 Right Ventricle TAPSE (mm): 23.10 TVS' Rei: 9.68 Tricuspid Valve TR Pk Rei: 1.85 TR Pk Grad: 14.00 RA Press: 8.00 RVSP: 22.00 Great Vessels Aorta Sinus of Valsalva: 3.60 2.0-3.5 cm Ao Asc: 3.30 2.1-3.4 cm Ao Arch: 2.80 Pulmonary Valve PV Pk Rei: 1.21 Peak PV Grad: 6.00 Updated in Other Vendor System with Status of Final Chirag Byers MD electronically signed on 09/08/2024 11:56:36 AM with status of Final
--- OUTSIDE RECORDS SUMMARY | 2024-09-07 17:34 | XMS_ITS | Encounter Summary ---
Author Name Department [place] Organization [place] Address [address] [place] [address] Care Team Providers Care [place] Operator Name Role Phone DELIA CHRISTIANSEN Primary Care Provider [facility] Insurance Providers: All historical and current Section [...] Patient's Relationship to Policy Garner [facility] CE ORGANIZAT ION [facility] Apr 03, 2012 [id number] DIANE RASCON [facility] CE ORGANIZAT ION HEALT H [facility] Dec 02, 2023 [id number] [phone] ANTONIETA RASCON NATURAL CHILD [facility] RX PRESCRIPT [facility] Dec 02, 2023 [facility] [id number] [phone] ANTONIETA RASCON NATURAL CHILD Selected Encounter This section includes the information on record at [place] for the Encounter. Date/Time Encounter Type Encounter Description Reason Provider Source May 25, 2024 03:00 PM OFFICE O/P EST SF 10 MIN [facility] - IND ICD-10-CM F33.1 Major depressive disorder, recurrent, moderate APPLE,SANDHYA DAVE IHE Encounter Template Text not used by [place] Assessments - Encounter Diagnoses This section includes the primary and secondary diagnoses documented for the Encounter. Date/Time Primary/Secondary Diagnosis Diagnosis Name Provider Source May 25, 2024 03:31 PM PRIMARY Major depressive disorder, recurrent, moderate SANDHYA CHIU [place] [facility] [place] [facility] May 25, 2024 03:31 PM SECONDARY Generalized anxiety disorder SANDHYA CHIU [place] [facility] [place] [facility] May 25, 2024 03:31 PM SECONDARY Primary insomnia SANDHYA CHIU [place] [facility] [place] [facility] Plan of Treatment: Future Appointments (+ 6 months) and Future Tests (+/- 45 days) The Plan of Treatment section includes future care activities for the patient from all [place] treatmentfacilities. This section includes future appointments and [...] [facility] [place] [facility] Jun 26, 2024 02:00 PM AMBULATORY - PSYCHIATRY [facility] [place] [facility] Jul 06, 2024 11:30 AM AMBULATORY - PSYCHIATRY [facility] [place] [facility] Jul 07, 2024 01:30 PM AMBULATORY - NEUROLOGY [facility] [place] [facility] Jul 07, 2024 01:30 PM AMBULATORY - NEUROLOGY [facility] [place] [facility] Jul 17, 2024 02:00 PM AMBULATORY - PSYCHIATRY [facility] [place] [place] [facility] Jul 30, 2024 03:00 PM AMBULATORY - MEDICINE [facility] [place] [facility] Aug 07, 2024 02:00 PM AMBULATORY - PSYCHIATRY [facility] [place] [place] [facility] Sep 04, 2024 02:00 PM AMBULATORY - PSYCHIATRY [facility] [place] [facility] Sep 18, 2024 02:00 PM AMBULATORY - PSYCHIATRY [facility] [place] [facility] October 05, 2024 11:00 AM AMBULATORY - PSYCHIATRY [facility] [place] [facility] October 05, 2024 03:30 PM AMBULATORY - NONE [facility] Social History: Smoking Status (Most current) [...] 01, 2024 08:30 AM VA-TOBACCO FORMER USER [facility] Tobacco Use History This section includes a history of the smoking, or tobacco-related health factors, that were collected on or before the date of the Encounter. The data comes from the [place] facility where the Encounter took place. Date/Time Smoking Status/Tobac co Use Comment Facility Apr 01, 2024 08:30 AM VA-TOBACCO QUIT 15 YRS OR MORE [facility] Jan 09, 2023 05:09 PM VA-TOBACCO FORMER USER [facility] Jan 09, 2023 05:09 PM VA-TOBACCO QUIT 15 YRS OR MORE [facility] [place] [facility] Jan 04, 2017 07:42 AM LIFETIME NON-TOBACCO [facility]ER [facility] Dec 26, 2015 09:20 AM QUIT TOBACCO USE > 7 YEARS AGO quit in 1997 [facility] October 27, 2003 03:29 PM HISTORY OF SMOKING Smoke free 6 years [facility] [place] [facility] Jan 02, 2002 08:56 AM HISTORY OF SMOKING [facility] [place] [facility] Jan 02, 2002 08:56 AM QUIT TOBACCO USE > 7 YEARS AGO [facility] [place] [facility] Jan 14, 2001 11:25 AM HISTORY OF SMOKING non smoker 4 years [facility] Encounter Notes: All associated encounter notes This section contains the clinical notes associated to the Encounter. Date/Time Encounter Note(s) Provider Source May 25, 2024 03:07 PM TELEHEALTH NOTE: LOCAL TITLE: [place] VIDEO CONNECT PSYCHIATRIST NOTE STANDARD TITLE: TELEHEALTH NOTE DATE OF NOTE: MAY 25, 2024@15:07 ENTRY DATE: MAY 25, 2024@15:07:36 AUTHOR: VIKTOR CHIU EXP COSIGNER: URGENCY: STATUS: COMPLETED [place] VIDEO CONNECT PSYCHIATRIST NOTE Has ADDENDA [place] Video Connect ([facility]) Standard Documentation [facility] Clinician Resources Only: E911 (Emergency Call Relay Center): [phone] National Veterans Crisis Line - 988 then press #1. [facility] Suicide Coordinator [phone], Ext. [phone]; Back-up Ext. [phone] [place] Police, JELLYAmanda, Arnold [phone] Introduction: Visit is being conducted by [place] Video Connect. [place] identified with 2 identifiers: [X] Full Name [X] Date of [ ] VA ID Card Emergency Plan: [place] confirmed and/or provided the following information in case of emergency or technology failure. PATIENT PHONE - PHONE NUMBER [CELLULAR] - Is patient phone number correct, if not, enter below: 's phone number: DIANE Patel [address], [place], [address] 's present location and address for appointment: [address] [place] [address] [place]'s emergency contact name and phone number: None given reported that location is private and safe: Yes Informed Consent: [place] informed of the risks and benefits of Telehealth video care. has the right to refuse video services. If refuses video visit, a lbem-gx-lith visit will be scheduled. [place] verbalized consent for this video visit: Yes provided consent for any other persons present for visit: N/A If yes, who and relationship to patient: Secure visit: Visit was locked for security and privacy:Yes DIANE RASCON, a 53 year old WHITE MALE was seen by [facility] today for scheduled mental health follow-up. MENTAL HEALTH NOTE: was seen by [facility] today for 15 min for routine mental [...] help with his recovery from Covid 19. Diane hasn't yet started sertraline. He continues on [...] Patient is aware of how to access [facility] open access MH clinic in [facility] during weekdays for immediate mental health [...] in the community (including Crisis Line, 911, [place] National Suicide Prevention Lifeline: 9-445-277-WWHV). Patient is instructed to contact me should [...] of active outpatient prescriptions dispensed from this [place] (local) and dispensed from another [place] or DoD facility (remote) as well as [...] whether with a VA or non-VA provider. /alana CHIU MD PSYCHIATRIST Signed: 05/25/2024 15:31 06/23/2024 ADDENDUM STATUS: COMPLETED contacted by telephone after receiving message that he was requesting a refill of his sertraline reports that he has not yet started sertraline and does not need a refill of this medication or any other medication at present. Aware that appointment with Dr. Chiu has been rescheduled for 07/06/24 and denied any acute concerns in need of being addressed before melani /blair/ ELENI DICK Psychiatric Mental Health Nurse Practitioner Signed: 06/23/2024 16:39 VIKTOR CHIU [facility]L [facility] [place] [facility]
--- OUTSIDE RECORDS SUMMARY | 2024-09-07 17:34 | XMS_ITS | Encounter Summary ---
Author Name [facility] [facility] [place] [facility] [place] Address [address] [place] [id number] Care Team Providers Care Cooker Operator Name Role Phone DELIA CHRISTIANSEN Primary Care Provider [facility] Insurance Providers: All historical and current [...] Garner's Name Patient's Relationship to Policy Garner [facility]GANIZ[facility] ION [facility] Apr 03, 2012 [id number] [phone] [facility]GAN[facility] ION [facility] [place] Dec 02, 2023 [id number] [phone] ANTONIETA RASCON CHILD [facility] PRESCRIPT ION [facility] O Dec 02, 2023 [facility] [id number] ANTONIETA RASCON NATURAL CHILD Selected Encounter This section includes the information on record at [place] for the Encounter. Date/Time Encounter Type Encounter Description Reason Pro vider Source Jan 03, 2024 02:00 PM Outpatient En[facility] Encounter Template Text not used by [facility] Plan of Treatment: Future Appointments (+ 6 months) and Future Tests (+/- 45 days) The Plan of Treatment section includes [facility] care [facility] This section includes future appointments and future orders which are active, pending or scheduled. Future Appointments This section includes appointments that were scheduled to occur 6 months from the date of the Encounter, up to a maximum of 20 appointments. The data comes from all [place] treatment facilities. Appointment Date/Time Appointment Type Appointme nt Facility Name Jan 17, 2024 02:00 PM AMBULATORY [facility]AT[facility] Jan 31, 2024 02:00 PM AMBULATORY - PS[facility]AT[facility] Feb 11, 2024 02:30 PM AMBULATORY - NEUROLOGY [facility] Feb 28, 2024 02:00 PM AMBULATORY - PS[facility]AT[facility] Mar 09, 2024 03:30 PM AMBULATORY [facility] MEDICINE [facility] Mar 13, 2024 02:00 PM AMBULATORY [facility]AT[facility] Mar 24, 2024 11:00 AM AM[facility]ULATORY [facility] Mar 27, 2024 02:00 PM AMBULATORY - PS[facility]IAT[facility] Mar 31, 2024 02:30 PM AMBULATORY - NEUROLOGY [facility] Mar 31, 2024 02:30 PM AM[facility]UL[facility] Apr 01, 2024 08:30 AM AMBULATORY - PS[facility]CHIATRY [facility] Apr 24, 2024 02:00 PM AMBULATORY - PS[facility]CHIATRY [facility] May 04, 2024 03:00 PM AMBULATORY - PS[facility]CHIATRY [facility] May 15, 2024 02:00 PM AMBULATORY - PS[facility]CHIATRY [facility] May 25, 2024 03:00 PM AMBULATORY - PS[facility]CHIATRY [facility] Jun 12, 2024 02:00 PM AMBULATORY - PS[facility]AT[facility] Jun 26, 2024 02:00 PM AMBULATORY - PS[facility]CHIATRY [facility] Social History: Smoking Status (Most current) and Tobacco Use (All prior to encounter date) This section includes the most current, and the historical, smoking and tobacco- related health factors from the [place] facility where the Encounter took place. Current Smoking Status This section includes the most current smoking, or tobacco-related health factor, from the [place] facility where the Encounter took place. Date/Time Current Smoking Status Comment [facility] alc[facility]er Jan 09, 2023 05:09 PM VA-TOBACCO FORMER USER [facility] Tobacco Use History This section includes a history of the smoking, or tobacco-related health factors, that were collected on or before the date of the Encounter. The data comes from the [place] facility where the Encounter took place. Date/Time Smoking Status/Tobac co Use Comment Facility Jan 09, 2023 05:09 PM VA-TOBACCO QUIT 15 YRS OR MORE [facility] Jan 04, 2017 07:42 AM LIFETIME NON-TOBACCO USER [facility] Dec 26, 2015 09:20 AM QUIT TOBACCO USE > 7 YEARS AGO quit in 1997 [facility] October 27, 2003 03:29 PM HISTORY OF SMOKING Smoke free 6 years [facility] Jan 02, 2002 08:56 AM HISTORY OF SMOKING [facility] Jan 02, 2002 08:56 AM QUIT TOBACCO USE > 7 YEARS AGO [facility] Jan 14, 2001 11:25 AM HISTORY OF SMOKING non smoker 4 years [facility] Encounter Notes: All associated encounter notes [...] his appt. was cancelled. /blair/ LEO CAMEJO [employer] Signed: 01/03/2024 15:34 LEO CAMEJO [facility]
--- OUTSIDE RECORDS SUMMARY | 2024-09-07 17:34 | XMS_ITS | Continuity of Care Document ---
Author Name [facility] Organization [facility] Care Team Providers Care Labor Relations Specialist Name Role Phone DOD-[place] Unavailable Unavailable Problems Combined list of problems [...] [facility] Cluster headache (SNOMED CT 794539110) Active Condition [facility] Exposure to potentially hazardous substance (SCT [id number]) Active Condition Dec 02 Entered By: MANUELA ARTEAGA Comment: Entered automatically through [facility] Problem List documentation program [facility] HTN - Hypertension (SCT 82583202) Active Condition [facility] Insomnia Active Condition [facility] Obesity (SNOMED CT 557940280) Active Condition [facility] Recurrent major depression Active Condition [facility] HYPERTROPHY OF BREAST Inactive Condition 11/17/2004 [facility] ROUTINE MEDICAL EXAM Inactive Condition 11/17/2004 [place] Diagnosis: ICD-10-CM F33.1 Major depressive disorder, recurrent, moderate Active Diagnosis [facility] Diagnosis: ICD-10-CM Z02.89 Encounter for other administrative examinations Active Diagnosis [facility] Diagnosis: ICD-10-CM F51.01 Primary insomnia [facility] Diagnosis: ICD-10-CM G43.019 Migraine w/o aura, intractable, without status migrainosus Active Diagnosis [facility] Diagnosis: ICD-10-CM E66.9 Obesity, unspecified [facility] Diagnosis: ICD-10-CM H93.19 Tinnitus, unspecified ear Active [facility] Diagnosis: ICD-10-CM F41.1 Generalized anxiety disorder Active [facility] Diagnosis: ICD-10-CM Z23 Encounter for immunization Active Diagnosis [facility] Diagnosis: ICD-10-CM F50.81 Binge eating disorder Active [facility] Diagnosis: ICD-10-CM I10 Essential (primary) hypertension Active [facility] [place] [facility] Diagnosis: ICD-10-CM G47.30 Sleep apnea, unspecified [facility] [place] [facility] Medications Combined list of outpatient [...] FOR VITAMIN SUPPLEME NTATION ORAL ACTIVE 12/02/2024 [id number] 4 DELIA CHRISTIANSEN 2023 100 [facility] DAPAGLIFLOZ IN 10MG TAB TAKE ONE TABLET BY MOUTH EVERY MORNING ORAL ACTIVE Iggy [facility] 2024 [facility] ESCITALOPRA M OXALATE 20MG TAB TAKE ONE TABLET BY MOUTH EVERY MORNING FOR MAJOR DEPRESSI VE DISORDER ORAL ACTIVE 07/07/2025 [id number] 5 Iggy [facility]IU 2024 90 [facility] FUROSEMIDE 20MG TAB TAKE ONE TABLET BY MOUTH ONCE DAILY ORAL ACTIVE Iggy CHIU 2024 [facility] METOPROLOL SUCCINATE 50MG TAB,SA TAKE ONE TABLET BY MOUTH ONCE DAILY ORAL ACTIVE Iggy [facility]IU 2024 [facility] NORTRIPTYLI NE HCL 25MG CAP TAKE ONE CAPSULE BY MOUTH AT BEDTIME HEADACHE ORAL ACTIVE 07/08/2025 [id number] 5 GARRY ROCHA 2024 90 [facility] NORTRIPTYLI NE HCL 25MG CAP TAKE ONE CAPSULE BY MOUTH AT BEDTIME HEADACHE ORAL DISCONT INUED 05/23/2024 [id number] 4 GARRY ROCHA 2022 90 [facility] SACUBITRIL 24MG/VALSAR CRUZ 26MG TAB TAKE ONE TABLET BY MOUTH TWICE DAILY ORAL ACTIVE Iggy [facility]IU 2024 [facility] SERTRALINE HCL 50MG TAB TAKE ONE-HALF TABLET BY MOUTH EVERY MORNING FOR 3 DAYS, THEN TAKE ONE TABLET EVERY MORNING FOR DEPRESSI ON ORAL DISCONT INUED BY PROVIDE R 06/04/2024 [id number] 4 Iggy [facility]IU 2023 29 [facility] SUMATRIPTAN SUCCINATE 100MG TAB TAKE ONE TABLET BY MOUTH DIRECTED FOR MIGRAINE HEADACHE AT ONSET OF HEADACHE ; MAY REPEAT IN 2 HOURS IF FIRST DOSE IS NOT EFFECTIV E ORAL ACTIVE 07/08/2025 [id number] 5 GARRY ROCHA 2024 18 [facility] SUMATRIPTAN SUCCINATE 100MG TAB TAKE ONE TABLET BY MOUTH DIRECTED FOR MIGRAINE HEADACHE AT ONSET OF HEADACHE ; MAY REPEAT IN 2 HOURS IF FIRST DOSE IS NOT EFFECTIV E ORAL DISCONT INUED 05/23/2024 [id number] 4 GARRY ROCHA 2022 18 [facility] TRAZODONE HCL 100MG TAB TAKE ONE TABLET BY MOUTH AT BEDTIME FOR INSOMNIA ASSOCIAT ED WITH DEPRESSI ON ORAL ACTIVE 07/07/2025 [id number] 5 Iggy [facility]IU 2024 90 [facility] TRAZODONE HCL 100MG TAB TAKE ONE TABLET BY MOUTH AT BEDTIME AND TAKE ONE TABLET AT BEDTIME NEEDED FOR INSOMNIA ORAL DISCONT INUED BY PROVIDE R 05/26/2025 [id number] 4 Iggy CHIU 2023 60 [facility] Immunizations Combined list of available immunizations from the Department of Defense and Veterans Affairs facilities. Immunization Series Date Given Administered By Site Reaction Lot Number CVX Code Drug School Age Teacher Status Comments Source COVID-19 (MODERNA), MRNA, LNP-S, PF, 50 MCG/0.5 ML (AGES 12+ YEARS) 2023 ZANVETTOR,CESAR BLESSING LEFT DELTO ID [id number] complet ed [facility] INFLUENZA, INJECTABLE, QUADRIVALENT, PRESERVATIVE FREE 2022 ZANVETTOR,CESAR BLESSING LEFT DELTO ID [id number] 150 complet ed [facility] [...] 2023 08:42 AM Reporting Lab[facility] [address] [facility] [address] Performing Lab: [facility] [place] [facility] [address] [facility] [address] [facility] THYROID T4 FREE(FT4) THYROXINE (T4) FREE [MASS/VOLUM E] IN SERUM OR PLASMA 0.90 ng/dL 0.6 - 1.6 08/26 Specimen Type: SERUM No comment entered. Ordering Provider: ROBERTO CHRISTIANSEN Report Released Date/Time: Jun 25, 2023 08:42 AM Reporting Lab: [facility] [address] [facility] [address] Performing Lab: [facility] [address] [facility] [address] [facility] VITAMIN B12 COBALAMIN (VITAMIN B12) [MASS/VOLUM E] IN SERUM OR PLASMA 469 pg/mL 200 - 900 08/26 Specimen Type: SERUM No comment entered. Ordering Provider: ROBERTO CHRISTIANSEN Report Released Date/Time: Jun 25, 2023 08:42 AM Reporting Lab: [facility] [place] [address] [address] Performing Lab: [facility] [place] [address] [address] [facility] [place] [facility] CBC LEUKOCYTES [#/VOLUME] IN BLOOD BY AUTOMATED COUNT 5.18 10*3/u L 4.50 - 11.00 08/26 Specimen Type: BLOOD No comment entered. Ordering Provider: ROBERTO CHRISTIANSEN Report Released Date/Time: Jun 25, 2023 08:42 AM Reporting Lab: [facility] [place] [address] [address] Performing Lab: [facility] [place] [address] [address] [facility] [place] [facility] CBC ERYTHROCYTE S [#/VOLUME] IN BLOOD BY AUTOMATED COUNT 5.10 10*6/u L 4.23 - 5.66 08/26 Specimen Type: BLOOD No comment entered. Ordering Provider: ROBERTO CHRISTIANSEN Report Released Date/Time: Jun 25, 2023 08:42 AM Reporting Lab: [facility] [place] [address] [address] Performing Lab: [facility] [place] [address] [address] [facility] [place] [facility] CBC HEMOGLOBIN [MASS/VOLUM E] IN BLOOD 14.3 g/dL 12.8 - 17 08/26 Specimen Type: BLOOD No comment entered. Ordering Provider: ROBERTO CHRISTIANSEN Report Released Date/Time: Jun 25, 2023 08:42 AM Reporting Lab: [facility] [place] [address] [address] Performing Lab: [facility] [address] [facility] [address] [facility] [place] [facility] CBC HEMATOCRIT [VOLUME FRACTION] OF BLOOD BY AUTOMATED COUNT 43.5 39.2 - 50.4 08/26 Specimen Type: BLOOD No comment entered. Ordering Provider: ROBERTO CHRISTIANSEN Report Released Date/Time: Jun 25, 2023 08:42 AM Reporting Lab: [facility] [place] [facility] [address] [facility] [address] Performing Lab: [facility] [place] [facility] [address] [facility] [address] [facility] [place] [facility] CBC MCV [ENTITIC VOLUME] BY AUTOMATED COUNT 85.3 fL 82 - 99 08/26 Specimen Type: BLOOD No comment entered. Ordering Provider: ROBERTO CHRISTIANSEN Report Released Date/Time: Jun 25, 2023 08:42 AM Reporting Lab: [facility] [place] [address] [address] Performing Lab: [facility] [place] [address] [address] [facility] [place] [facility] CBC MCHC [MASS/VOLUM E] BY AUTOMATED COUNT 32.9 g/dL 30.8 - 35.1 08/26 Specimen Type: BLOOD No comment entered. Ordering Provider: ROBERTO CHRISTIANSEN Report Released Date/Time: Jun 25, 2023 08:42 AM Reporting Lab: [facility] [place] [address] [address] Performing Lab: [facility] [place] [address] [address] [facility] [place] [facility] CBC PLATELETS [#/VOLUME] IN BLOOD BY AUTOMATED COUNT 179 10*3/u L 140 - 360 08/26 Specimen Type: BLOOD No comment entered. Ordering Provider: ROBERTO CHRISTIANSEN Report Released Date/Time: Jun 25, 2023 08:42 AM Reporting Lab: [facility] [place] [address] [address] Performing Lab: [facility] [place] [facility] [address] [facility] [address] [facility] CBC ERYTHROCYTE DISTRIBUTIO N WIDTH [RATIO] BY AUTOMATED COUNT 12.8 12.0 - 16.0 08/26 Specimen Type: BLOOD No comment entered. Ordering Provider: ROBERTO CHRISTIANSEN Report Released Date/Time: Jun 25, 2023 08:42 AM Reporting Lab: [facility] [place] [facility] [address] [facility] [address] Performing Lab: [facility]TR[facility] [address] [facility] [address] [facility] CBC MCH [ENTITIC MASS] BY AUTOMATED COUNT 28.0 pg 26.2 - 32.6 08/26 Specimen Type: BLOOD No comment entered. Ordering Provider: ROBERTO CHRISTIANSEN Report Released Date/Time: Jun 25, 2023 08:42 AM Reporting Lab: [facility] [place] [facility] [address] [facility] [address] Performing Lab: [facility]N [facility]ITAL[facility] [address] [address] [facility]RJ[facility]ERN [facility]ITALUSE [facility] VITAMIN D (25-OH) 25-HYDROXYV ITAMIN D3 [MASS/VOLUM E] IN SERUM OR PLASMA 16 ng/mL 20 - 50 08/26 L Specimen Type: SERUM No comment entered. Ordering Provider: ROBERTO CHRISTIANSEN Report Released Date/Time: Jun 25, 2023 08:42 AM Reporting Lab: [facility] [place] [address] [address] Performing Lab: [facility] [place] [place] [address] [address] [facility]RJ[facility]ERN [facility]ITAL[facility] MAGNESIUM MAGNESIUM [MASS/VOLUM E] IN SERUM OR PLASMA 2.0 mg/dL 1.6 - 2.6 08/26 Specimen Type: SERUM No comment entered. Ordering Provider: ROBERTO CHRISTIANSEN Report Released Date/Time: Jun 25, 2023 08:42 AM Reporting Lab: [facility] [place] [address] [address] Performing Lab: [facility] [place] [address] [address] [facility] HEMOGLOBI N A1C PANEL HEMOGLOBIN A1C/HEMOGLO BIN.TOTAL [...] 2023 08:42 AM Reporting Lab: [facility] [place] [place] [address] [address] Performing Lab: [place] [facility] [place] [place] [address] [address] [facility]RJ[facility]ERN [facility] PSA PROSTATE SPECIFIC AG [MASS/VOLUM E] IN SERUM OR PLASMA 1.35 ng/mL 0.00 - 4.00 08/26 Specimen Type: SERUM No comment entered. Ordering Provider: ROBERTO CHRISTIANSEN Report Released Date/Time: Jun 25, 2023 08:42 AM Reporting Lab: [facility] [place] [place] [address] [address] Performing Lab: [facility] [address] [address] [facility] TSH THYROTROPIN [UNITS/VOLU ME] IN SERUM OR PLASMA 1.38 u[IU]/ mL 0.35 - 5.00 08/26 Specimen Type: SERUM No comment entered. Ordering Provider: ROBERTO CHRISTIANSEN Report Released Date/Time: Jun 25, 2023 08:42 AM Reporting Lab: [facility] [place] [address] [address] Performing Lab: [facility] [place] [facility] [address] [facility] [address] [facility] [place] [facility] BASIC METABOLIC PANEL (fasting) UREA NITROGEN [MASS/VOLUM E] IN SERUM OR PLASMA 15 mg/dL 7 - 25 08/26 Specimen Type: SERUM No comment entered. Ordering Provider: ROBERTO CHRISTIANSEN Report Released Date/Time: Jun 25, 2023 08:42 AM Reporting Lab: [facility] [place] [facility] [address] [facility] [address] Performing Lab: [facility] [place] [facility] [address] [facility] [address] [facility] WSTRN [facility]ITAL[facility] BASIC METABOLIC PANEL (fasting) GLUCOSE [MASS/VOLUM E] IN SERUM OR PLASMA 95 mg/dL 65 - 100 08/26 Specimen Type: SERUM No comment entered. Ordering Provider: ROBERTO CHRISTIANSEN Report Released Date/Time: Jun 25, 2023 08:42 AM Reporting Lab: [facility] [place] [facility] [address] [facility] [address] Performing Lab: [facility] W[facility]N [facility]ITALUSETS [facility] [address] [facility] [address] [facility]ITALRST[facility]TRN [facility]ITALUSE [facility] BASIC METABOLIC PANEL (fasting) SODIUM [MOLES/VOLU ME] IN SERUM OR PLASMA 142 mmol/L 135 - 145 08/26 Specimen Type: SERUM No comment entered. Ordering Provider: ROBERTO CHRISTIANSEN Report Released Date/Time: Jun 25, 2023 08:42 AM Reporting Lab: [facility] [place] [facility] [address] [facility] [address] Performing Lab: [place] [facility] [facility] [address] [facility] [address] [facility]N [facility]ITAL[facility] BASIC METABOLIC PANEL (fasting) POTASSIUM [MOLES/VOLU ME] IN SERUM OR PLASMA 4.3 mmol/L 3.5 - 5.0 08/26 Specimen Type: SERUM No comment entered. Ordering Provider: ROBERTO CHRISTIANSEN Report Released Date/Time: Jun 25, 2023 08:42 AM Reporting Lab: [facility] [place] [facility] [address] [facility] [address] Performing Lab: [facility] [place] [facility] [address] [facility] [address] [facility] [place] [facility] BASIC METABOLIC PANEL (fasting) CHLORIDE [MOLES/VOLU ME] IN SERUM OR PLASMA 107 mmol/L 100 - 110 08/26 Specimen Type: SERUM No comment entered. Ordering Provider: ROBERTO CHRISTIANSEN Report Released Date/Time: Jun 25, 2023 08:42 AM Reporting Lab: [facility] [place] [facility] [address] [facility] [address] Performing Lab: [facility] [place] [address] [address] [facility] [place] [facility] BASIC METABOLIC PANEL (fasting) CARBON DIOXIDE, TOTAL [MOLES/VOLU ME] IN SERUM OR PLASMA 25 meq/L 20 - 30 08/26 Specimen Type: SERUM No comment entered. Ordering Provider: ROBERTO CHRISTIANSEN Report Released Date/Time: Jun 25, 2023 08:42 AM Reporting Lab: [facility] [place] [facility] [address] [facility] [address] Performing Lab: [facility] [place] [address] [address] [facility] [place] [facility] BASIC METABOLIC PANEL (fasting) CREATININE [MASS/VOLUM E] IN SERUM OR PLASMA 0.68 mg/dL 0.50 - 1.40 08/26 Specimen Type: SERUM No comment entered. Ordering Provider: ROBERTO CHRISTIANSEN Report Released Date/Time: Jun 25, 2023 08:42 AM Reporting Lab: [facility] [place] [facility] [address] [facility] [address] Performing Lab: [facility] [place] [address] [address] [facility] [place] [facility] BASIC METABOLIC PANEL (fasting) GLOMERULAR FILTRATION RATE/1.73 SQ M.PREDICTED [VOLUME RATE/AREA] IN SERUM, PLASMA OR BLOOD BY CREATININE- BASED FORMULA (CKD-EPI 2020) >90mL/ min 60 08/26 Specimen Type: SERUM No comment entered. Ordering Provider: ROBERTO CHRISTIANSEN Report Released Date/Time: Jun 25, 2023 08:42 AM Reporting Lab: [facility] [address] [facility] [address] Performing Lab: [facility] [address] [facility] [address] [facility] [place] [facility] Vital Signs Combined list of inpatient and outpatient Vital Signs from Department of Defense and Veterans Affairs, ranging from 12 months to all on record, depending upon the facility. Vital Sign Value Date Comments Source SYSTOLIC BLOOD PRESSURE 135 12/02/19 24 15:14:21 [facility] DIASTOLIC BLOOD PRESSURE 89 024 15:14:21 [facility] PULSE OXIMETRY 96 12/02/2023 15:14:21 [facility] WEIGHT 386 12/02/2023 15:14:21 [facility] BMI 52 kg/m2 12/02/2023 15:14:21 [facility] [...] from Department of Veterans Affairs facilities going backup to the last 18 months, not all VA inpatient encounters are included; 2) Encounters from the Department of Defense facilities going backup to 280 months. Location Location Details Encounter Type Encounter Number Reason For Visit Attending Provider ADM Date DC Date Status Disposition Source [facility] Outpatient Encounter [id number] 03/13 [facility] OFF[facility] O/P EST LOW 20-29 MIN [id number] Diagnos is: ICD-10- CM G47.30 Sleep apnea, unspeci fied Carmen CHRISTIANSEN 03/13 [facility] [place] [facility] [place] Outpatient Encounter [id number] 04/24 [facility] En[facility] [id number] DORIS OSBORNE 04/24 [facility] [place] [facility] En[facility] [id number] 04/26 [facility] [place] [facility] OFF/[place] CONSLT[place] 55 [id number] Diagnos is: ICD-10- CM G43.019 Migrain e w/o aura, intract able, without status migrain osGARRY Spence 05/23 [place] [facility] En[facility] [id number] 05/23 [facility] [place] [facility] [place] Outpatient Encounter [id number] 06/13 [facility] [place] [facility] OFFICE O/P EST MOD 30 MIN [id number] Diagnos is: ICD-10- CM I10 Essenti al (primar y) hyperte nsion Carmen CHRISTIANSEN 06/25 [facility] PSYCH DIAGNOSTIC EVALUATION [id number] Diagnos is: ICD-10- CM H93.19 Tinnitu s, unspeci fied ear Tyrell TAPIA 07/01 [facility] MTMS BY PHARM ADDL 15 MIN [id number] Diagnos is: ICD-10- CM E66.9 Obesity , unspeci fied GDULA,JANETH A 07/09 [facility] MTMS BY PHARM EST 15 MIN [id number] Diagnos is: ICD-10- CM E66.9 Obesity , unspeci fied GDULA,JANETH A 07/30 [facility] En[facility] [id number] 08/07 [facility] En[facility] [id number] 08/12 [facility] [place] [facility] OFFICE O/P EST MOD 30 MIN [id number] Diagnos is: ICD-10- CM G43.019 Migrain e w/o aura, intract able, without status migrain GARRY Jeronimo 08/21 [facility] En[facility] [id number] 08/21 [facility] PSYTX W PT 60 MINUTES [id number] Diagnos is: ICD-10- CM H93.19 Tinnitu s, unspeci fied ear WEISMOORE, BLAYNE 08/21 [facility] En[facility] [id number] 08/29 [facility] PSYTX W PT 45 MINUTES [id number] Diagnos is: ICD-10- CM H93.19 Tinnitu s, unspeci fied ear [facility] 09/05 [facility] En[facility] [id number] 09/05 [facility] PSYTX W PT 45 MINUTES [id number] Diagnos is: ICD-10- CM F51.01 Primary insomni a MARCI,BR MONINEY M 09/18 [facility] En[facility] [id number] 09/24 [facility] PSYTX W PT 45 MINUTES [id number] Diagnos is: ICD-10- CM F50.81 Binge eating disorde BLAYNE Chavez 10/03 [facility] PSYTX W PT 45 MINUTES [id number] Diagnos is: ICD-10- CM F50.81 Binge eating disorde BLAYNE Chavez 10/17 [facility] [place] OFFICE O/P EST MOD 30 MIN [id number] Diagnos is: ICD-10- CM G43.019 Migrain e w/o aura, intract able, without status migrain GARRY Jeronimo 10/29 [facility] Outpatient Encounter [id number] 10/29 [facility] PSY[facility] W PT 45 MINUTES [id number] Diagnos is: ICD-10- CM H93.19 Tinnitu s, unspeci fied ear ALISON TRAN 10/31 [facility] PSYTX W PT 45 MINUTES [id number] Diagnos is: ICD-10- CM F50.81 Binge eating disorde ALISON Marley 11/14 [facility] Outpatient Encounter [id number] DORIS OSBORNE 11/20 [facility] PSYTX W PT 45 MINUTES [id number] Diagnos is: ICD-10- CM F50.81 Binge eating disorde ALISON Marley 11/27 [facility] OFFICE O/P EST LOW 20 MIN [id number] Diagnos is: ICD-10- CM I10 Essenti al (primar y) hyperte Carmen Abbott 12/01 [facility] PSYTX W PT 45 MINUTES [id number] Diagnos is: ICD-10- CM F50.81 Binge eating disorde r ALISON TRAN 12/19 [facility] En[facility] [id number] 01/02 [facility] PSYTX W PT 45 MINUTES [id number] 1. Diagnos is: ICD-10- CM H93.19 Tinnitu s, unspeci fied ear ALISON TRAN 01/16 [facility] PSYTX W PT 45 MINUTES [id number] Diagnos is: ICD-10- CM F51.01 Primary insomni a ALISON TRAN 01/30 [facility] [id number] 02/10 [facility] [id number] 02/10 [facility] PSYTX W PT 45 MINUTES [id number] Diagnos is: ICD-10- CM F51.01 Primary insomni a ALISON TRAN 02/27 [facility] Encounter [id number] 03/09 [facility] OFF/OP EST OCTOBER X REQ PHY/QHP [id number] 1. Diagnos is: ICD-10- CM Z23 Encount er for immuniz ation DYLON DORIS 03/09 [facility] PSYTX W PT 45 MINUTES [id number] Diagnos is: ICD-10- CM F41.1 General ized anxiety disorde r JUAN ALBERTO MARTINEZ 03/13 [facility] Outpatient Encounter [id number] 1. Diagnos is: ICD-10- CM Z02.89 Encount er for other adminis trative examina tiFAMILIA Velazquez 03/24 [facility] PSYTX W PT 45 MINUTES [id number] Diagnos is: ICD-10- CM H93.19 Tinnitu s, unspeci fied ear RASTA COVARRUBIAS 03/27 [facility] OFFICE O/P EST MOD 30 MIN [id number] Diagnos is: ICD-10- CM G43.019 Migrain e w/o aura, intract able, without status migrain osus GARRY ROCHA 03/31 [facility] Outpatient Encounter [id number] 1.03/31 [facility] PSYTX W PT W E/M 30 MIN [id number] 1. Diagnos is: ICD-10- CM F51.01 Primary insomni a Sydnie BEDOYA 04/01 [facility] Outpatient Encounter [id number] 04/08 [facility] PSYTX W PT 45 MINUTES [id number] 1. Diagnos is: ICD-10- CM E66.9 Obesity , unspeci fied ALISON TRAN 04/24 [facility] Outpatient Encounter [id number] [facility] PSYCH DIAG EVAL W/MED SRVCS [id number] Diagnos is: ICD-10- CM F33.1 Major depress suzanne disorde r, recurre nt, moderat e MILLY CHIU 05/04 [facility] PSYTX W PT 45 MINUTES [id number] Diagnos is: ICD-10- CM F33.1 Major depress suzanne disorde r, recurre nt, moderat e ALISON TRAN 05/15 [facility] OFFICE O/P EST SF 10 MIN [id number] Diagnos is: ICD-10- CM F33.1 Major depress suzanne disorde r, recurre nt, juanitaat e MILLY CHIU 05/25 [facility] PSYTX W PT 45 MINUTES [id number] Diagnos is: ICD-10- CM F33.1 Major depress suzanne disorde r, recurre nt, moderat ALISON Hughes 06/12 [facility] PSYTX W PT 45 MINUTES [id number] Diagnos is: ICD-10- CM F51.01 Primary insomni ALISON Spangler 06/26 [facility] OFFICE O/P EST LOW 20 MIN [id number] Diagnos is: ICD-10- CM F33.1 Major depress suzanne disorde r, recurre nt, moderat e MILLY CHIU 07/06 [facility] Outpatient Encounter [id number] 07/07 [facility] SYNCH AUDIO-VIDE O EST MOD 30 [id number] Diagnos is: ICD-10- CM G43.019 Migrain e w/o aura, intract able, without status migrain GARRY Jeronimo 07/07 [facility] Outpatient Encounter [id number] 07/07 [facility] Outpatient Encounter [id number] 07/09 [facility] PSYTX W PT 45 MINUTES [id number] Diagnos is: ICD-10- CM F51.01 Primary insomni a ALISON TRAN 07/17 [facility] Outpatient Encounter [id number] Diagnos is: ICD-10- CM Z02.89 Encount er for other adminis trative examina tiFAMILIA Velazquez 07/30 [facility] PSYTX W PT 45 MINUTES [id number] Diagnos is: ICD-10- CM F33.1 Major depress suzanne disorde r, recurre nt, moderat e ALISON TRAN 08/07 [facility] En[facility] [id number] 08/21 [facility] PT [facility] MINUTES [id number] Diagnos is: ICD-10- CM F33.1 Major depress suzanne disorde r, recurre nt, moderat e ALISON TRAN 09/04 [facility] Social History Combined list of available smoking, tobacco, and other social history from Department of Defense and Veterans Affairs facilities. Social History Type Response Date Comment Source [facility] of [facility]20[facility] History of tobacco use LIFETIME NON-TOBACCO USER 01/04/2017 [facility] History of tobacco use QUIT TOBACCO USE > 7 YEARS AGO 12/26/2015 quit in 1997 [facility] History of tobacco use HISTORY OF SMOKING 10/27/2003 Smoke free 6 years [facility] History of tobacco use HISTORY OF SMOKING 01/02/2002 [facility] History of tobacco use HISTORY OF SMOKING 01/14/2001 non smoker 4 years [facility] Plan of Care List of future care activities from Department of Veterans Affairs facilities. Additional future care activities may be listed in the Assessment and Plan section. Date/Time Care Activity Care Activity Detail Facili ty 09/18/2024 AMBULATORY - PSYCHIATRY AMBULATORY - PSYC HIATRY [facility]
--- OUTSIDE RECORDS SUMMARY | 2024-09-07 17:35 | XMS_ITS ---
Author Name [facility] [place] [facility] [place] [facility] [place] Address [address] [place] [address] Care Team Providers Care Saw Edge Fuser Circular Name Role Phone DELIA CHRISTIANSEN [facility] Insurance Providers: All historical and current [...] Garner's Name Patient's Relationship to Policy Garner [facility] ORGANIZAT ION BANNER Apr 03, 2012 [id number] [phone] DIANE RASCON [facility] ORGANIZAT ION HEALT H [facility] Dec 02, 2023 [id number] [id number] WILDA RASCON NATURAL CHILD [employer] PRESCRIPT ION HNE O Dec 02, 2023 [facility] [id number] [phone] WILDA RASCON NATURAL CHILD Selected Encounter This section includes the information on record at [place] for the Encounter. Date/Time Encounter Type Encounter Description Reason Provider Source Sep 04, 2024 02:00 PM PSYTX W PT 45 MINUTES [facility] ICD-10-CM F33.1 Major depressive disorder, recurrent, moderate TARIQ TRAN [facility] Encounter Template Text not used by [place] Assessments - Encounter Diagnoses This section includes the primary and secondary diagnoses documented for the Encounter. Date/Time Primary/Secondary Diagnosis Diagnosis Name Provider Source Sep 04, 2024 04:21 PM PRIMARY Major depressive disorder, recurrent, moderate KARSTEN FRANCIS [facility] Sep 04, 2024 04:21 PM SECONDARY Generalized anxiety disorder KARSTEN FRANCIS [facility] Sep 04, 2024 04:21 PM SECONDARY Obesity, unspecified KARSTEN FRANCIS [facility] Plan of Treatment: Future Appointments (+ 6 months) and Future Tests (+/- 45 days) The Plan of Treatment section includes future care activities for the patient [facility] [place] [facility] This section includes future appointments and future orders which are active, pending or scheduled. Future Appointments This section includes appointments that were scheduled to occur 6 months from the date of the Encounter, up to a maximum of 20 appointments. The data comes from all [place] treatment facilities. Appointment Date/Time Appointment Type Appointme nt Facility Name Sep 18, 2024 02:00 PM AMBULATORY - PSYCHIATRY [facility] October 05, 2024 11:00 AM AMBULATORY - PSYCHIATRY [facility] October 05, 2024 03:30 PM AMBULATORY - NONE [facility] Dec 14, 2024 03:30 PM AMBULATORY - MEDICINE [facility] Social History: Smoking Status (Most current) [...] Facil ity Apr 01, 2024 08:30 AM [place] QU[place] 15 YRS OR MORE [facility] Tobacco Use History This section includes a history of the smoking, or tobacco-related health factors, that were collected on or before the date of the Encounter. The data comes from the [place] facility where the Encounter took place. Date/Time Smoking Status/Tobac co Use Comment Facility Apr 01, 2024 08:30 AM [place] QU[place] 15 YRS OR MORE [facility] Jan 09, 2023 05:09 PM [place]-TO[place]AC[place] FORMER USER [facility] Jan 09, 2023 05:09 PM [place] QUIT 15 YRS OR MORE [facility] Jan 04, 2017 07:42 AM LIFETIME NON-TOBACCO USER [facility] Dec 26, 2015 09:20 AM QUIT TOBACCO USE > 7 YEARS AGO quit in 1997 [facility] October 27, 2003 03:29 PM HISTORY OF SMOKING Smoke free 6 years [facility] Jan 02, 2002 08:56 AM HISTORY OF SMOKING [facility] Jan 02, 2002 08:56 AM QUIT TOBACCO USE > 7 YEARS AGO [facility] Jan 14, 2001 11:25 AM HISTORY OF SMOKING non smoker 4 years [facility] Encounter Notes: All associated encounter notes This section contains the clinical notes associated to the Encounter. Date/Time Encounter Note(s) Provider Source Sep 04, 2024 04:16 PM TELEHEALTH NOTE: LOCAL TITLE: [place] [facility] PSYCHOLOGY NOTE STANDARD TITLE: TELEHEALTH NOTE DATE OF NOTE: SEP 04, 2024@16:16 ENTRY DATE: SEP 04, 2024@16:16:36 AUTHOR: KARSTEN FRANCIS COSIGNER: TARIQ TRAN URGENCY: STATUS: COMPLETED [place] [facility] PSYCHOLOGY NOTE Has ADDENDA This [...] a 50 minute individual psychotherapy appointment on 09/18/2024 in the treatment of depression, anxiety and insomnia. DATA: The [place] shared that he was beginning to see some improvements from his cardiac rehab and lifestyle changes, including 30lbs of weight loss and improved physical wellbeing. We reviewed and reinforced his plans for lifestyle changes (e.g., implementing exercise). The [place] shared that cardiac rehab has been difficult because he feels like everyone is looking at him. This is partially true, due to the need for medical observation, but we explored this as a manifestation of social anxiety. We explored cognitive strategies for working with this. The abstract writer provided psychoeducation on the spotlight effect, natural/manufactured emotions, and relevant elements of CBT. ASSESSMENT: The was on time to the appointment and was fully engaged. Grooming and dress were WNL. Gross motor function was WNL. Mood was euthymic and affect was congruent. Speech was normal in rate, tone and prosody. Insight and judgement were intact. There was no evidence of A/VH or thought disorder. No SI/HI. PLAN: [place] will RTC for individual psychotherapy on 09/18/2024 with provider, Dr. Karsten Francis. [place] [facility] (VV) Standard Documentation VV Clinician Resources Only: E911 (Emergency Call Relay Center): [phone] [facility] Crisis Line - 988 then press #1. [facility] Suicide Coordinator [phone], Ext. [phone]; Back-up Ext. [phone] [place] [employer], [place] [phone] Introduction: Visit is being conducted by [place] [facility]. [place] identified with 2 identifiers: [X] Full Name [ ] Date of [ ] VA ID Card [X] Visual Recognition Emergency Plan: [place] confirmed and/or provided the following information in case of emergency or technology failure. PATIENT PHONE - PHONE NUMBER [CELLULAR] - Is patient phone number correct, if not, enter below: 's phone number: DIANE Patel TARAH [address], [place], [address] 's present location and address for appointment: [address] [address] 's emergency contact name and phone number: Wilda Graceensen reported that location is private and safe: Yes Informed Consent: [place] informed of the risks and benefits of Telehealth video care. has the right to refuse video services. If refuses video visit, a [id number] visit will be scheduled. verbalized consent for this video visit: Yes [place] provided consent for any other persons present for visit: N/A If yes, who and relationship to patient: Secure visit: Visit was locked for security and privacy: Yes /blair/ KARSTEN FRANCIS, PHD [facility] Post-Doctoral Psychology Trainee Signed: 09/04/2024 16:21 /blair/ TARIQ TRAN PSYD PSYCHOLOGIST Cosigned: 09/07/2024 17:15 09/07/2024 ADDENDUM STATUS: COMPLETED I have reviewed this case and concur with the clinical impressions and recommendations made by this trainee who is under my clinical supervision. /blair/ TARIQ TRAN PSYD PSYCHOLOGIST Signed: 09/07/2024 17:15 KARSTEN FRANCIS [facility]
--- OUTSIDE RECORDS SUMMARY | 2024-09-07 17:35 | XMS_ITS ---
Author Name [facility] [place] Organization [place] Address [address] [place] [address] Care Team Providers Care Iso Coordinator Name Role Phone DELIA CHRISTIANSEN Primary Care [...] Relationship to Policy Garner [facility] CE ORGANIZAT ION [facility] Apr 03, 2012 [id number] [phone] DIANE RASCON [facility] CE ORGANIZAT ION HEALT H [facility] Dec 02, 2023 [id number] [phone] ANTONIETA RASCON NATURAL CHILD OPTUM RX PRESCRIPT ION HNE O Dec 02, 2023 [facility] [id number] [phone] ANTONIETA RASCON NATURAL CHILD Selected Encounter This section includes the information on record at [place] for the Encounter. Date/Time Encounter Type Encounter Description Reason Provider Source Jul 06, 2024 11:30 AM OFFICE O/P EST LOW 20 MIN [facility]ENTAL [facility]ALTH CLINIC - IND ICD-10-CM F33.1 Major depressive disorder, recurrent, moderate APPLE,SANDHYA DAVE IHE Encounter Template Text not used by [place] Assessments - Encounter Diagnoses This section includes the primary and secondary diagnoses documented for the Encounter. Date/Time Primary/Secondary Diagnosis Diagnosis Name Provider Source Jul 07, 2024 01:05 PM PRIMARY Major depressive disorder, recurrent, moderate SANDHYA CHIU [place] [facility] [place] [facility] Jul 07, 2024 01:05 PM SECONDARY Generalized anxiety disorder SANDHYA CHIU [place] [facility] [facility] Jul 07, 2024 01:05 PM SECONDARY Primary insomnia SANDHYA CHIU [place] [facility] [facility] Plan of Treatment: Future Appointments (+ 6 months) and Future Tests (+/- 45 days) The Plan of Treatment section includes future care activities for the patient from all [place] [facility] This section includes future appointments and future orders which are active, pending or scheduled. Future Appointments This section includes appointments that were scheduled to occur 6 months from the date of the Encounter, up to a maximum of 20 appointments. The data comes from all [place] treatment facilities. Appointment Date/Time Appointment Type Appointme nt Facility Name Jul 07, 2024 01:30 PM AMBULATORY - NEUROLOGY [facility] [place] [facility] [place] Jul 07, 2024 01:30 PM [facility] [place] Jul 17, 2024 02:00 PM AMBULATORY - PSYCHIATRY [facility] [place] [facility] [place] Jul 30, 2024 03:00 PM AMBULATORY - MEDICINE [place] [facility] [facility] [place] Aug 07, 2024 02:00 PM AMBULATORY - PSYCHIATRY [facility] [place] [facility] [place] Sep 04, 2024 02:00 PM AMBULATORY - PSYCHIATRY [facility] [place] [facility] Sep 18, 2024 02:00 PM AMBULATORY - PSYCHIATRY [facility] [place] [facility] [place] October 05, 2024 11:00 AM AMBULATORY - PSYCHIATRY [facility] [place] [facility] [place] October 05, 2024 03:30 PM AMBULATORY - NONE [facility] [place] [facility] [place] Dec 14, 2024 03:30 PM AMBULATORY - MEDICINE [place] C [facility] [facility] Social History: Smoking Status (Most current) and Tobacco Use (All prior to encounter date) This section includes the most current, and the historical, smoking and tobacco- related health factors from the [place] facility where the Encounter took place. Current Smoking Status This section includes the most current smoking, or tobacco-related health factor, from the [place] facility where the Encounter took place. Date/Time Current Smoking Status Comment Facil it Apr 01, 2024 08:30 AM VA-TO[facility]ACCO [facility] Tobacco Use History This section includes a history of the smoking, or tobacco-related health factors, that were collected on or before the date of the Encounter. The data comes from the [place] facility where the Encounter took place. Date/Time Smoking Status/Tobac co Use Comment Facility Apr 01, 2024 08:30 AM VA-TOBACCO QUIT 15 [facility]RS OR [facility] Jan 09, 2023 05:09 PM VA-[facility]ACCO [facility] Jan 09, 2023 05:09 PM VA-TOBACCO QUIT 15 YRS OR MORE [place] [facility] [place] [facility] Jan 04, 2017 07:42 AM LIFETIME NON-TOBACCO [facility]ER [facility] [place] [facility] Dec 26, 2015 09:20 AM QUIT TOBACCO USE > 7 YEARS AGO quit in 1997 [facility] October 27, 2003 03:29 PM HISTORY OF SMOKING Smoke free 6 years [place] [facility] [place] [facility] Jan 02, 2002 08:56 AM HISTORY OF SMOKING [facility] Jan 02, 2002 08:56 AM QUIT TOBACCO USE > 7 YEARS AGO [facility] [place] [facility] Jan 14, 2001 11:25 AM HISTORY OF SMOKING non smoker 4 years [facility] Encounter Notes: All associated encounter notes This section contains the clinical notes associated to the Encounter. Date/Time Encounter Note(s) Provider Source Jul 06, 2024 11:35 AM TELEHEALTH NOTE: LOCAL TITLE: VA VIDEO CONNECT PSYCHIATRIST NOTE STANDARD TITLE: TELEHEALTH NOTE DATE OF NOTE: JUL 06, 2024@11:35 ENTRY DATE: JUL 06, 2024@11:35:24 AUTHOR: VIKTOR CHIU EXP COSIGNER: URGENCY: STATUS: COMPLETED VA Video Connect (VVC) Standard Documentation [facility] Clinician Resources Only: E911 (Emergency Call Relay Center): [phone] National Veterans Crisis Line - 988 then press #1. DIVYA Suicide Coordinator [phone], Ext. [phone]; Back-up Ext. [phone] [place] , [place]OK[place] [phone] Introduction: Visit is being conducted by [place] Video Connect. [place] identified with 2 identifiers: [X] Full Name [X] Date of [ ] VA ID Card Emergency Plan: confirmed and/or provided the following information in case of emergency or technology failure. PATIENT PHONE - PHONE NUMBER [CELLULAR] - Is patient phone number correct, if not, enter below: 's phone number: DIANE Patel TARAH [address], [place], [address] [place]'s present location and address for appointment: [address] [place] [id number] 's emergency contact name and phone number: None given today reported that location is private and safe: Yes Informed Consent: informed of the risks and benefits of Telehealth video care. [place] has the right to refuse video services. If refuses video visit, a mihl-wz-fzge visit will be scheduled. verbalized consent for this video visit: Yes provided consent for any other persons present for visit: N/A If yes, who and relationship to patient: Secure visit: Visit was locked for security and privacy:Yes DIANE RASCON, a 53 year old WHITE MALE was seen by [facility] for scheduled mental health follow-up. MENTAL HEALTH NOTE: was seen by [facility] for 25 min in the [facility] for routine mental health follow up. Two forms of identification was used. DIAGNOSES AND PROBLEMS TREATED THIS VISIT: Major Depressive Disorder, Recurrent, Moderate without psychotic features, Anxiety Disorder Unspecified SUBJECTIVE: Diane says that he not doing that well. He ended up having a protracted case of Covid 19 and ended up being in the ICU for some time due to difficulty breathing with a diagnosis of congestive heart failure. He has been wearing a lifepack (backpack AED that he wears in case his heart stops beating). He says his Ejection Fraction is 19%. He is on all new heart medications. He will be doing cardiac rehab soon. Eduard says he doesn't know exactly what caused this (could have been his untreated sleep apnea). Diane says he was told he has a 50/50 chance of survival 5 years from now as a result of his CHF. He says that his and his sons were worried about him and have been supportive of him. Diane has started eating what his eats because she is healthier than he is. Diane has been wanting to live as long as he can. Diane continues in regular therapy with Karsten Mulligan and has felt supported by this therapy and his treatment at the [place]. Diane says he has continued on lexapro and trazodone. With everything going on he never made the switch over to sertraline. He would prefer to just remain with the lexapro and trazodone for now. SUBSTANCE ABUSE: Caffeine: Tobacco: Cocaine: denies any [...] SUPPLEMENTATION Indication: FOR VITAMIN D DEFICIENCY 2) TRAZODONE HCL 100MG TAB TAKE ONE TABLET BY MOUTH AT BEDTIME ACTIVE AND TAKE ONE TABLET AT BEDTIME NEEDED FOR INSOMNIA Indication: FOR INSOMNIA 3) Lexapro 20 mg by mouth daily for depression 4) Nortriptyline 25 mg daily for headaches 5) Sumatriptan 100 mg as needed for headaches Non VA Medications 1) Entresto 26 mg by mouth twice a day for CHF 2) Farxiga 10 mg by mouth daily for CHF 3) Spironolactone ? dose (takes half a tablet a day) for CHF 4) Metoprolol Succinate 50 mg by mouth daily for CHF 5) Furosemide 20 mg by mouth daily for fluid overload from CHF MEDICATION ADHERENCE: takes medications most days MEDICATION SIDE EFFECTS: none OBJECTIVE:recent labs:LAB RESULTS LAST 1440 HRS - NONE FOUND Weight: 386 lb [175.09 kg] (12/02/2023 15:14) BMI: 52.5 MENTAL STATUS EXAM: Orientation and Consciousness: Alert and fully oriented. Appearance and Behavior: Middle aged white male with short dark hair dressed casually at home. Eye Contact: Good. Speech: Normal rate and volume. Mood/Affect: not good. Affect: constricted. Thought Production/Content: Logical, sequential & relevant to discussion. Perceptual Disturbances: None. Attention, concentration and memory based on answers to session questions: Good. Insight/Judgment: Both good. SI/HI: Neither elicited. Ability to Provide informed consent: Yes. ASSESSMENT:53 year old WHITE MALE, presents today for mental health follow up. TREATMENT PLAN/ DISCUSSION/ RATIONALE: 1.::: Medication management: Reviewed medications today with Daine. He has continues on lexapro 20 mg daily and trazodone 100 mg qHS. Diane had a lot go on since his last appt. and never made the switch to sertraline and at this point, prefers to remain with his current regimen. Diane had a serious medical event occur and has been recovering from this ever since. He is managing his life with this new diagnosis of congestive heart failure and is adjusting to the medications he has to take now for this as well as the special AED backpack he wears in case his heart were to stop. Diane sounds in fair spirits today despite all of the challenges he has had recently. He continues in therapy with Karsten Mulligan who he meets with twice a month and feels very supported by. I was not able to confirm his dose of spironolactone today. Left him a message to call back with the correct dose. Next Visit: in 3 months. Patient is aware of how to access [facility] open access clinic in [place] [...] in the community (including Crisis Line, 911, [place] National Suicide Prevention Lifeline: 5-663-471-NFGG). Patient is instructed to contact me should [...] ER in the event of an emergency. Sexual Orientation: The patient thinks of their sexual orientation as: Straight or Heterosexual Medication Reconciliation: Outpatient: Has the patient been taking medications as documented in the EMLR? No: Discrepencies were identified. See below. Essential Medication List for Review used to complete this medication reconciliation. INCLUDED IN THIS LIST: Alphabetical list of active outpatient prescriptions dispensed from this [place] (local) and dispensed from another VA or DoD facility (remote) as well as inpatient orders (local, pending and active), local clinic medications, locally documented non-VA medications, and local prescriptions that have or been discontinued in the past 90 days. - Discrepancies were identified, addressed, and discussed with the patient/caregiver at this encounter. Discrepancies: New medications (non VA for CHF) - All changes in medications, including all non-VA/Herbal/OTC medications were entered into CPRS. - If there were any medications the patient should no longer take, they were discontinued. - The patient/caregiver was instructed to update this list, discard old lists, and take this list to the next appointment, whether with a VA or non-VA provider. Medication Reconciliation: Outpatient: Medication Reconciliation was attempted at this encounter, but unable to complete: Patient/Caregiver unable to confirm all the medications the patient is taking. Outpatient: Medication Reconciliation was attempted at this encounter, but unable to complete: Patient/Caregiver unable to confirm all the medications the patient is taking. /blair/ VIKTOR CHIU MD PSYCHIATRIST Signed: 07/07/2024 13:05 VIKTOR CHIU [facility]
--- OUTSIDE RECORDS SUMMARY | 2024-09-07 17:35 | XMS_ITS ---
Author Name Department of Veter[facility] [place] Affairs [place]) Organization [place] Address [address] [place] [address] Care Team Providers Care Gill Tender Name Role Phone DELIA CHRISTIANSEN Primary Care [...] Garner's Name Patient's Relationship to Policy Garner [facility] CE ORGANIZAT ION [facility] Apr 03, 2012 [id number] [phone] DIANE RASCON [facility] ORGANIZAT ION HEALT H [facility] [place] Dec 02, 2023 [id number] [phone] WILDA RASCON NATURAL CHILD OPTUM RX PRESCRIPT ION HNE O Dec 02, 2023 [facility] [phone] WILDA RASCON NATURAL CHILD Selected Encounter This section includes the information on record at [place] for the Encounter. Date/Time Encounter Type Encounter Description Reason Provider Source Jun 26, 2024 02:00 PM PSYTX W PT 45 MINUTES MENTAL HEALTH CLINIC - IND ICD-10-CM F51.01 Primary insomnia TARIQ TRAN [facility] Encounter Template Text not used by VA Assessments - Encounter Diagnoses This section includes the primary and secondary diagnoses documented for the Encounter. Date/Time Primary/Secondary Diagnosis Diagnosis Name Provider Source Jun 26, 2024 04:17 PM PRIMARY Primary insomnia KARSTEN FRANCIS [place] [facility] [place] [facility] Jun 26, 2024 04:17 PM SECONDARY Generalized anxiety disorder KARSTEN FRANCIS [place] [facility] [facility] Jun 26, 2024 04:17 PM SECONDARY Major depressive disorder, recurrent, moderate KARSTEN FRANCIS [facility] [facility] Jun 26, 2024 04:17 PM SECONDARY Obesity, unspecified KARSTEN FRANCIS [facility] [place] [facility] Plan of Treatment: Future Appointments (+ 6 months) and Future Tests (+/- 45 days) The Plan of Treatment section includes future care activities for the patient from all [place] treatmentfacilities. This section includes future appointments and future orders which are active, pending or scheduled. Future Appointments This section includes appointments that were scheduled to occur 6 months from the date of the Encounter, up to a maximum of 20 appointments. The data comes from all [place] treatment facilities. Appointment Date/Time Appointment Type Appointme nt Facility Name Jul 06, 2024 11:30 AM AMBULATORY - PSYCHIATRY [facility] [place] [facility] Jul 07, 2024 01:30 PM AMBULATORY - NEUROLOGY [place] [facility] [place] [facility] Jul 07, 2024 01:30 PM AMBULATORY - [facility]Y [facility] Jul 17, 2024 02:00 PM AMBULATORY - PSYCHIATRY [facility] [place] [facility] Jul 30, 2024 03:00 PM AMBULATORY - MEDICINE VA C [facility]TR[facility] [place] [facility] Aug 07, 2024 02:00 PM AMBULATORY - PSYCHIATRY [facility] [facility] Sep 04, 2024 02:00 PM AMBULATORY - PSYCHIATRY [facility] [facility] Sep 18, 2024 02:00 PM AMBULATORY - PSYCHIATRY [facility] [facility] October 05, 2024 11:00 AM AMBULATORY - PSYCHIATRY [facility] [facility] October 05, 2024 03:30 PM AMBULATORY - NONE [facility] [place] [facility] Dec 14, 2024 03:30 PM [facility] Social History: Smoking Status (Most [...] 01, 2024 08:30 AM [facility]AC[facility] Tobacco Use History This section includes a history of the smoking, or tobacco-related health factors, that were collected on or before the date of the Encounter. The data comes from the [place] facility where the Encounter took place. Date/Time Smoking Status/Tobac co Use Comment Facility Apr 01, 2024 08:30 AM VA-TOBACCO QUIT 15 YRS OR MORE [place] [facility]TR [place] [facility] Jan 09, 2023 05:09 PM VA-TOBACCO FORMER USER PR [facility]TRL [place] [facility] Jan 09, 2023 05:09 PM VA-TOBACCO QUIT 15 YRS OR MORE PR CNTR [place] [facility] Jan 04, 2017 07:42 AM LIFETIME NON-TOBACCO USER [facility] Dec 26, 2015 09:20 AM QUIT TOBACCO USE > 7 YEARS AGO quit [facility] 1997 [facility] [place] [facility] October 27, 2003 03:29 PM HISTORY OF SMOKING Smoke free 6 years [facility] [place] [facility] Jan 02, 2002 08:56 AM HISTORY OF SMOKING [place] [facility]TR [place] [facility] Jan 02, 2002 08:56 AM QUIT TOBACCO USE > 7 YEARS AGO [facility] [place] [facility] Jan 14, 2001 11:25 AM HISTORY OF SMOKING non smoker 4 years [facility] Encounter Notes: All associated encounter notes This section contains the clinical notes associated to the Encounter. Date/Time Encounter Note(s) Provider Source Jun 26, 2024 04:12 PM TELEHEALTH NOTE: LOCAL TITLE: [place] VIDEO CONNECT PSYCHOLOGY NOTE STANDARD TITLE: TELEHEALTH NOTE DATE OF NOTE: JUN 26, 2024@16:12 ENTRY DATE: JUN 26, 2024@16:12:52 AUTHOR: KARSTEN FRANCIS COSIGNER: TARIQ TRAN URGENCY: STATUS: COMPLETED VA VIDEO CONNECT PSYCHOLOGY NOTE Has ADDENDA This [...] a 45 minute individual psychotherapy appointment on 06/26/2024 in the treatment of depression, anxiety and insomnia. DATA: We processed the [place]'s hospital discharge, return to work and his efforts to work on lifestyle changes required by his new diagnosis of congestive heart failure. He was told that he has a 35% chance of surviving 10 years with his current prognosis. He shared that he and his were preparing for the worst, but also he was working hard on lifestyle changes to help improve his odds. In particular, he noted that he had been doing well with diet changes, partially owning to the fact that his already maintained for herself the type of diet he now needs to have. He noted improvements in his physical health since discharged, and we explored the connection to well-being. ASSESSMENT: The [place] was on time to the appointment and was fully engaged. Grooming and dress were WNL. Gross motor function was WNL. Mood was euthymic and affect was congruent. Speech was normal in rate, tone and prosody. Insight and judgement were intact. There was no evidence of A/VH or thought disorder. The [place] reported an increase in thoughts about during his emotional breakdown several weeks ago, but denied ever having suicidal plan or intent. He denied current SI and endorsed feeling more hopeful at present. PLAN: [place] will RTC for individual psychotherapy on 07/10/2024 with provider, Dr. Karsten Francis. VA Video Connect (VVC) Standard Documentation VVC Clinician Resources Only: E911 (Emergency Call Relay Center): [phone] National Veterans Crisis Line - 988 then press #1. JELLY Suicide Coordinator [phone], Ext. [phone]; Back-up Ext. [phone] [place] Police, [place] [phone] Introduction: Visit is being conducted by [place] Video Connect. [place] identified with 2 identifiers: [X] Full Name [ ] Date of [ ] VA ID Card [X] Visual Recognition Emergency Plan: [place] confirmed and/or provided the following information in case of emergency or technology failure. PATIENT PHONE - PHONE NUMBER [CELLULAR] - Is patient phone number correct, if not, enter below: [place]'s phone number: DIANE RASCON [address], [place], [address] 's present location and address for appointment: [address] [address] [place]'s emergency contact name and phone number: Wilda Rascon [place] reported that location is private and safe: Yes Informed Consent: informed of the risks and benefits of Telehealth video care. has the right to refuse video services. If refuses video visit, a qjyz-wp-[id number] visit will be scheduled. verbalized consent for this video visit: Yes [place] provided consent for any other persons present for visit: N/A If yes, who and relationship to patient: Secure visit: Visit was locked for security and privacy:Yes /bliar/ KARSTEN FRANCIS, PHD [facility] Post-Doctoral Psychology Trainee Signed: 06/26/2024 16:16 /blair/ TARIQ TRAN PSYD PSYCHOLOGIST Cosigned: 06/26/2024 16:18 06/26/2024 ADDENDUM STATUS: COMPLETED I have reviewed this case and concur with the clinical impressions and recommendations made by this trainee who is under my clinical supervision. /blair/ TARIQ TRAN PSYD PSYCHOLOGIST Signed: 06/26/2024 16:18 [facility]
--- OUTSIDE RECORDS SUMMARY | 2024-09-07 17:35 | XMS_ITS ---
Author Name [facility] [place] Organization [facility] [place] Address [address] [place] [address] Care Team Providers Care Administrative Services Specialist Name Role Phone DELIA CHRISTIANSEN Primary Care Provider [facility] Insurance Providers: All historical and current Section Date Range: From patient's date of to the date document was created. This section includes the names of all active insurance providers for the patient. Insurance Provider Type of Coverage Plan Name Start of Policy Coverage End of Policy Coverage Group Number Member ID Insurance Provider's Telephone Number Policy Garner's Name Patient's Relationship to Policy Garner [facility] CE ORGANIZAT ION [facility] Apr 03, 2012 [id number] [phone] DIANE RASCON [facility] ORGANIZAT ION HEALT H [facility] [place] Dec 02, 2023 [id number] WILDA RASCON NATURAL CHILD OPTUM RX PRESCRIPT ION HNE O Dec 02, 2023 [facility] [id number] [phone] WILDA RASCON NATURAL CHILD Selected Encounter This section includes the information on record at [place] for the Encounter. Date/Time Encounter Type Encounter Description Reason Provider Source Jul 17, 2024 02:00 PM PSYTX W PT 45 MINUTES [facility] - IND ICD-10-CM F51.01 Primary insomnia TARIQ TRAN [facility] Encounter Template Text not used by VA Assessments - Encounter Diagnoses This section includes the primary and secondary diagnoses documented for the Encounter. Date/Time Primary/Secondary Diagnosis Diagnosis Name Provider Source Jul 17, 2024 04:08 PM PRIMARY Primary insomnia [facility] Jul 17, 2024 04:08 PM SECONDARY Major depressive disorder, recurrent, moderate [facility]ANC[facility] Plan of Treatment: Future Appointments (+ 6 months) and Future Tests (+/- 45 days) The Plan of Treatment section includes future care activities for the patient from all [place] [facility]. This section includes future appointments and future orders which are active, pending or scheduled. Future Appointments This section includes appointments that were scheduled to occur 6 months from the date of the Encounter, up to a maximum of 20 appointments. The data comes from all [place] treatment facilities. Appointment Date/Time Appointment Type Appointme nt Facility Name Jul 30, 2024 03:00 PM AMBULATORY - MEDICINE [place] [facility] [place] [facility] Aug 07, 2024 02:00 PM [facility] [place] [facility] Sep 04, 2024 02:00 PM AMBUL[facility] [place] [facility] Sep 18, 2024 02:00 PM [facility] [place] [facility] October 05, 2024 11:00 AM AMBULATORY - PSYCHIATRY [place] [facility] [place] [facility] October 05, 2024 03:30 PM [facility] N[facility] [place] [facility] Dec 14, 2024 03:30 PM AMBULAT[facility] Social History: Smoking Status (Most current) [...] 01, 2024 08:30 AM VA-TOBACCO [facility] Tobacco Use History This section includes a history of the smoking, or tobacco-related health factors, that were collected on or before the date of the Encounter. The data comes from the [place] facility where the Encounter took place. Date/Time Smoking Status/Tobac co Use Comment Facility Apr 01, 2024 08:30 AM VA-TOBACCO QUIT 15 YRS OR MORE [facility] Jan 09, 2023 05:09 PM VA-TOBACCO [facility] Jan 09, 2023 05:09 PM VA-TOBACCO QUIT 15 YRS OR MORE [facility] Jan 04, 2017 07:42 AM LIFETIME NON-TOBACCO USER [facility] Dec 26, 2015 09:20 AM QUIT TOBACCO USE > 7 YEARS AGO quit in 1997 [facility] October 27, 2003 03:29 PM HISTORY OF SMOKING Smoke free 6 years [facility] Jan 02, 2002 08:56 AM HISTORY OF SMOKING [facility] Jan 02, 2002 08:56 AM QUIT TOBACCO USE > 7 YEARS AGO [facility] Jan 14, 2001 11:25 AM HISTORY OF SMOKING non smoker 4 years [facility] Encounter Notes: All associated encounter notes This section contains the clinical notes associated to the Encounter. Date/Time Encounter Note(s) Provider Source Jul 17, 2024 03:59 PM TELEHEALTH NOTE: LOCAL TITLE: DC VIDEO CONNECT PSYCHOLOGY NOTE STANDARD TITLE: TELEHEALTH NOTE DATE OF NOTE: JUL 17, 2024@15:59 ENTRY DATE: JUL 17, 2024@15:59:52 AUTHOR: KARSTEN FRANCIS COSIGNER: TARIQ TRAN URGENCY: STATUS: COMPLETED DC VIDEO CONNECT PSYCHOLOGY NOTE Has ADDENDA This [...] a 50 minute individual psychotherapy appointment on 07/17/2024 in the treatment of depression, anxiety and insomnia. DATA: The shared that while he was feeling physically better, he had been feeling depressed over the past few weeks. He shared the sense that the few things he enjoyed doing he was no longer able to do (e.g., drinking beer, eating less healthy foods). We spent a while discussing ways to orient to new sources of enjoyment/reinforcement, with a special focus on how to make lifestyle changes more intrinsically rewarding (e.g., finding interests to engage with on walks). We reflected on the things the used to enjoy, and idenitified that social interaction was a big element that has changed. We spent time processing the theraputic relationship and the level of openness and vulnerability with the provider. The provier offered feedback on the importance of attending to interpersonal factors in therapy help support relational functions in the rest of his life. ASSESSMENT: The was on time to the appointment and was fully engaged. Grooming and dress were WNL. Gross motor function was WNL. Mood was euthymic and affect was congruent. Speech was normal in rate, tone and prosody. Insight and judgement were intact. There was no evidence of A/VH or thought disorder. denied current SI and endorsed feeling more hopeful at present. No SI/HI. PLAN: will RTC for individual psychotherapy on 08/07/2024 with provider, Dr. Karsten Francis. [place] Fund Recs ([facility]) Standard Documentation [facility] Clinician Resources Only: E911 (Emergency Call Relay Center): [phone] National Veterans Crisis Line - 988 then press #1. [employer] Suicide Coordinator [phone], Ext. [phone]; Back-up Ext. [phone] [place] Police, [place] [phone] Introduction: Visit is being conducted by [employer]. identified with 2 identifiers: [X] Full Name [ ] Date of [ ] VA ID Card [X] Visual Recognition Emergency Plan: confirmed and/or provided the following information in case of emergency or technology failure. PATIENT PHONE - PHONE NUMBER [CELLULAR] - Is patient phone number correct, if not, enter below: 's phone number: DIANE M TARAH [address], [place], [address] [place]'s present location and address for appointment: [address] [address] 's emergency contact name and phone number: Wilda Rascon reported that location is private and safe: Yes Informed Consent: informed of the risks and benefits of Telehealth video care. has the right to refuse video services. If refuses video visit, a [id number] visit will be scheduled. verbalized consent for this video visit: Yes provided consent for any other persons present for visit: N/A If yes, who and relationship to patient: Secure visit: Visit was locked for security and privacy:Yes /blair/ KARSTEN FRANCIS, PHD [facility] Post-Doctoral Psychology Trainee Signed: 07/17/2024 16:08 /blair/ TARIQ TRAN PSYD PSYCHOLOGIST Cosigned: 07/17/2024 16:55 07/17/2024 ADDENDUM STATUS: COMPLETED I have reviewed this case and concur with the clinical impressions and recommendations made by this trainee who is under my clinical supervision. /blair/ TARIQ TRAN PSYD PSYCHOLOGIST Signed: 07/17/2024 16:56 KARSTEN FRNACIS [place] [facility]
--- OUTSIDE RECORDS SUMMARY | 2024-09-07 17:35 | XMS_ITS ---
Author Name Department of Veter[facility] Affairs ([place]) Organization [place] of [place] Address [address] [place] [address] Care Team Providers Care Roto Rooter Operator Name Role Phone DELIA CHRISTIANSEN Primary Care Provider Unavail[facility] Insurance Providers: All historical and [...] Garner's Name Patient's Relationship to Policy Garner [facility] CE ORGANIZAT ION [facility] Apr 03, 2012 [id number] DIANE RASCON [facility] ORGANIZAT ION HEALT H [facility] [place] Dec 02, 2023 [id number] ANTONIETA RASCON NATURAL CHILD OPTUM RX PRESCRIPT ION HNE O Dec 02, 2023 [facility] [id number] ANTONIETA RASCON NATURAL CHILD Selected Encounter This section includes the information on record at OR for the Encounter. Date/Time Encounter Type Encounter Description Reason Provider Source Apr 01, 2024 08:30 AM PSYTX W PT W E/M 30 MIN [facility] - IND ICD-10-CM F51.01 Primary insomnia LIUDMILA BEDOYA [facility] Encounter Template Text not used by VA Assessments - Encounter Diagnoses This section includes the primary and secondary diagnoses documented for the Encounter. Date/Time Primary/Secondary Diagnosis Diagnosis Name Provider Source Apr 02, 2024 09:51 PM PRIMARY Primary insomnia LIUDMILA BEDOYA [facility] [place] [facility] Apr 02, 2024 09:51 PM SECONDARY Depression, unspecified LIUDMILA BEDOYA [facility] [place] [facility] Apr 02, 2024 09:51 PM SECONDARY Generalized anxiety disorder LIUDMILA BEDOYA [place] [facility] [place] [facility] Plan of Treatment: Future Appointments (+ 6 months) and Future Tests (+/- 45 days) The Plan of Treatment section includes future care activities for the patient from all [place] treatmentfacilities. This section includes future appointments and [...] AMBULATORY - PSYCHIATRY [facility] [place] [facility] May 04, 2024 03:00 PM AMBULATORY - PSYCHIATRY [facility] [place] [facility] May 15, 2024 02:00 PM AMBULATORY - PSYCHIATRY [facility] [place] [facility] May 25, 2024 03:00 PM AMBULATORY - PSYCHIATRY [facility] [place] [facility] Jun 12, 2024 02:00 PM AMBULATORY - PSYCHIATRY [facility] [place] [facility] Jun 26, 2024 02:00 PM AMBULATORY - PSYCHIATRY [facility] [place] [facility] Jul 06, 2024 11:30 AM AMBULATORY - PSYCHIATRY [facility] [place] [facility] Jul 07, 2024 01:30 PM AMBULATORY - NEUROLOGY [facility] [place] [facility] Jul 07, 2024 01:30 PM AMBULATORY - NEUROLOGY [facility] Jul 17, 2024 02:00 PM AMBULATORY - PSYCHIATRY [facility] [place] [facility] Jul 30, 2024 03:00 PM AMBULATORY - MEDICINE [facility] [place] [facility] Aug 07, 2024 02:00 PM [facility] Sep 04, 2024 02:00 PM [facility] Sep 18, 2024 02:00 PM [facility] Active, Pending, and Scheduled Orders This section includes a listing of several types of active, pending, and scheduled orders, including clinic medications orders, diagnostic test orders, procedure orders and consult orders; where the start date of the order is 45 days before the date of the Encounter or 45 days after the date of theEncounter. The data comes from all [place] treatment facilities. Test Date/Time Test Type Test Details Facility Name Apr 07, 2024 10:17 AM Consult Order COMMUNITY CARE-OPTOMETRY ROUTINE EYE EXAM Cons Manager Loan's Choice [facility] Social History: Smoking Status (Most current) [...] 01, 2024 08:30 AM VA-TOBACCO FORMER USER [facility] Tobacco Use History This section includes a history of the smoking, or tobacco-related health factors, that were collected on or before the date of the Encounter. The data comes from the [place] facility where the Encounter took place. Date/Time Smoking Status/Tobac co Use Comment Facility Apr 01, 2024 08:30 AM VA-TOBACCO QUIT 15 YRS OR [facility] Jan 09, 2023 05:09 PM VA-TOBACCO [facility] Jan 09, 2023 05:09 PM VA-TOBACCO QUIT 15 YRS OR MORE [facility] Jan 04, 2017 07:42 AM LIFETIME NON-TOBACCO USER [facility] Dec 26, 2015 09:20 AM QUIT TOBACCO USE > 7 YEARS AGO quit in 1997 [facility] October 27, 2003 03:29 PM HISTORY OF SMOKING Smoke free 6 years [facility] Jan 02, 2002 08:56 AM HISTORY OF SMOKING [facility] Jan 02, 2002 08:56 AM QUIT TOBACCO USE > 7 YEARS AGO [facility] Jan 14, 2001 11:25 AM HISTORY OF SMOKING non smoker 4 years [facility] Encounter Notes: All associated encounter notes [...] seen for scheduled Medication Management visit at [facility] for Dx: depression, insomnia, anxiety. Identifiers used: , full SSN, states full name. Visit was for 60minutes. Active problems - Computerized Problem List is the source for the followin. Exposure to potentially hazardous substance ([facility] [id number]) 2. Binge eating behaviour 3. Insomnia 4. Anxiety 5. Depression 6. HTN - Hypertension (SCT [id number]) 7. Sleep apnea 8. Tinnitus 9. Cluster headache (SNOMED CT [id number]) 10. Calculus of Kidney 11. Chronic sinusitis 12. Obesity (SNOMED CT [id number]) CHART REVIEW: is a patient of Dr. Busby and [...] spent 10-15 years dealing with denial. 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 Good hygiene. Pleasant. Cooperative. Wears csaarez slacks and printed blue shirt today. 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 Tailman asked about TBI and he stated: I [...] better and more robustly in cognitive matters. now appears (x)stable psychiatrically ()unstable psychiatrically i. [...] today and Vet expressed understanding Next Visit: [place] realizes that his case is complex with [...] this VA (local) and dispensed from another OR or [facility] facility (remote) as well as inpatient [...] whether with a VA or non-VA provider. Alcohol Use Screen (AUDIT-C): Alcohol Screen: [...] down, depressed, or hopeless Not at all /es/ FLACA BEDOYA, RN,MSN,PSYCH N.P., STAFF CLINICAL NURSE SPECIALIST Signed: 04/02/2024 21:56 FLACA BEDOYA [facility]
--- OUTSIDE RECORDS SUMMARY | 2024-09-07 17:35 | XMS_ITS | Encounter Summary ---
Author Name [facility] [place] Address [address] [place] [address] Care Team Providers Care Candy Waffle Assembler Name Role Phone DELIA CHRISTIANSEN Primary Care Provider Unavaila [facility] [place] Insurance Providers: All historical and current Section [...] Patient's Relationship to Policy Garner [facility] CE ORGANIZAT ION [facility] Apr 03, 2012 [id number] [phone] DIANE RASCON [facility] CE ORGANIZAT ION HEALT H [facility] [place] Dec 02, 2023 [id number] [phone] ANTONIETA RASCON NATURAL CHILD OPTUM RX PRESCRIPT ION HNE O Dec 02, 2023 [facility] [id number] [phone] ANTONIETA RASCON NATURAL CHILD Selected Encounter This section includes the information on record at [place] for the Encounter. Date/Time Encounter Type Encounter Description Reason Pro vider Source Jul 07, 2024 01:30 PM Outpatient Encounter ADMIN PAT ACTIVTIES (MASNONCT) IHE Encounter Template Text not used by [place] Plan of Treatment: Future Appointments (+ 6 months) and Future Tests (+/- 45 days) The Plan of Treatment section includes future care activities for the patient from all [place] [facility]. This section includes future appointments and future orders which are active, pending or scheduled. Future Appointments This section includes appointments that were scheduled to occur 6 months from the date of the Encounter, up to a maximum of 20 appointments. The data comes from all [place] treatment facilities. Appointment Date/Time Appointment Type Appointme nt Facility Name Jul 17, 2024 02:00 PM AMBULATORY - PSYCHIATRY IN [facility] [facility] [place] [facility] Jul 30, 2024 03:00 PM [facility] Aug 07, 2024 02:00 PM AMBULATORY - [facility] Sep 04, 2024 02:00 PM AMBULATORY - [facility]IAT[facility] Sep 18, 2024 02:00 PM [facility] October 05, 2024 11:00 AM AMBULATORY - PSYCHIATRY [place] [facility] October 05, 2024 03:30 PM [facility] [place] [facility] Dec 14, 2024 03:30 PM [facility]BUL[facility] MED[facility]INE [facility] Social History: Smoking Status (Most [...] took place. Date/Time Current Smoking Status Comment [facility] Apr 01, 2024 08:30 AM [facility]-TOBACCO QUIT [facility] YRS [facility] Tobacco Use History This section includes a history of the smoking, or tobacco-related health factors, that were collected on or before the date of the Encounter. The data comes from the [place] facility where the Encounter took place. Date/Time Smoking Status/Tobac co Use Comment Facility Apr 01, 2024 08:30 AM IN-TOBACCO QUIT [facility] YRS OR [facility] Jan 09, 2023 05:09 PM VA-TOBACCO FORMER USER [facility] Jan 09, 2023 05:09 PM IN-TOBACCO QUIT [facility] YRS [facility] [...] Encounter. Date/Time Encounter Note(s) Provider Source Jul 07, 2024 01:24 PM NEUROLOGY OUTPATIE NT NOTE: LOCAL TITLE: NEUROLOGY CLINIC NOTE STANDARD TITLE: NEUROLOGY OUTPATIENT NOTE DATE OF NOTE: JUL 07, 2024@13:24 ENTRY DATE: JUL 07, 2024@13:24:36 AUTHOR: GARRY ROCHA COSIGNER: URGENCY: STATUS: COMPLETED Tele-Headache Progress Note The consented to telehealth services. Patient address and safety in case of emergency were confirmed. Patient's phone number and Emergency Contact phone number were confurmed In Attendence:1) 2)Provider CC:Headache Last Visit: Impression: 1-Migraines, states occurring 4-8 days/month, taking [...] changes to above needed 4-RTC 3 months Interval History: -states Michael 6-, diagnosed with congestive heart failure - headaches have been bad the past month -really stressed out -stopped nortriptyline adn sumatriptan until -started furosemide 20mg, metoprolol 50mg, spironolactone, farxiga 10mg, entrestro -CHF-clean coronary arteries after cath, presumed to be due to R-sided hrt failure/pulm htn from JW -psychiatrist aware of nortriptyline ROS: No new visual, auditory or cognitive issues, no new weakness or numbness, no chest pain, no belly pain, no shortness of breath, no melena, no heamtochezia, all others negative. PMHx/Problem List: Active problems - Computerized Problem List is the source for the followin. Recurrent major depression 2. Exposure to potentially hazardous substance ([facility] [id number]) 3. Binge eating behaviour 4. Insomnia 5. Anxiety 6. HTN - Hypertension ([facility] [id number]) 7. Sleep apnea 8. Tinnitus 9. Cluster headache (SNOMED CT 699376585) 10. Calculus of Kidney 11. Chronic sinusitis 12. Obesity (SNOMED CT 073053942) Current Medication List: Active Outpatient Medications (including Supplies): Active Outpatient Medications Status 1) CHOLECALCIF 50MCG (D3-2,000UNIT) TAB TAKE ONE TABLET BY ACTIVE MOUTH ONCE DAILY FOR VITAMIN SUPPLEMENTATION Indication: FOR VITAMIN D DEFICIENCY 2) ESCITALOPRAM OXALATE 20MG TAB TAKE ONE TABLET BY MOUTH EVERY ACTIVE MORNING Indication: FOR MAJOR DEPRESSIVE DISORDER 3) TRAZODONE HCL 100MG TAB TAKE ONE TABLET BY MOUTH AT BEDTIME ACTIVE Indication: FOR INSOMNIA ASSOCIATED WITH DEPRESSION Active Non-VA Medications Status 1) Non-VA DAPAGLIFLOZIN 10MG TAB 10MG BY MOUTH EVERY MORNING ACTIVE Indication: FOR CHF 2) Non-VA FUROSEMIDE 20MG TAB 20MG BY MOUTH ONCE DAILY ACTIVE Indication: FOR VISIBLE WATER RETENTION 3) Non-VA METOPROLOL SUCCINATE 50MG SA TAB 50MG BY MOUTH ONCE ACTIVE DAILY Indication: FOR CHRONIC HEART FAILURE 4) Non-VA SACUBITRIL 24MG/VALSARTAN 26MG TAB 1 TABLET BY MOUTH ACTIVE TWICE DAILY Indication: FOR CHRONIC HEART FAILURE 7 Total Medications Medication list reconciled with patient Allergies: Patient has answered NKA Examination: Gen-NAD head-NCAT MS-alert, oriented, fluent, no overt agnosias, apraxias CN-pupils equal, gaze symmetric, non nystagmus, no ptosis Motor-normal bulk in uppers Coord-no head or hand tremor Impression: 1-Migraines, had substantial reduction on nortriptyline, low dose, had recent dx of CH (EF 19%), presumed right-sided with pulm htn, neg. cath. At this time, nortriptyline and sumatriptan not explicitly contraindicated in non-ischemic, non-electrical cardiomyopathy, patient would like to resume both metdications, reviewed current medication list and no clear interactions. Discussed sub of ubrogepant for sumatriptan, pt would prefer sumatriptan. Patient udnerstands above, and is amenable to restarting meds. Recommendations: 1-nortriptyline 25mg HS 2-sumatriptan 100mg at onset of headache 3-RTC 3 months (X)Neurologic condition and management, [...] List is the source for the followin. Recurrent major depression 2. Exposure to potentially hazardous substance ([facility] [id number]) 3. Binge eating behaviour 4. Insomnia 5. Anxiety 6. HTN - Hypertension ([facility] [id number]) 7. Sleep apnea 8. Tinnitus 9. Cluster headache (SNOMED CT 642138242) 10. Calculus of Kidney 11. Chronic sinusitis 12. Obesity (SNOMED CT 210687149) Active Outpatient Medications (including Supplies): Active Outpatient Medications Status 1) CHOLECALCIF 50MCG (D3-2,000UNIT) TAB TAKE ONE TABLET BY ACTIVE MOUTH ONCE DAILY FOR VITAMIN SUPPLEMENTATION Indication: FOR VITAMIN D DEFICIENCY 2) ESCITALOPRAM OXALATE 20MG TAB TAKE ONE TABLET BY MOUTH EVERY ACTIVE MORNING Indication: FOR MAJOR DEPRESSIVE DISORDER 3) TRAZODONE HCL 100MG TAB TAKE ONE TABLET BY MOUTH AT BEDTIME ACTIVE Indication: FOR INSOMNIA ASSOCIATED WITH DEPRESSION Active Non-VA Medications Status 1) Non-VA DAPAGLIFLOZIN 10MG TAB 10MG BY MOUTH EVERY MORNING ACTIVE Indication: FOR CHF 2) Non-VA FUROSEMIDE 20MG TAB 20MG BY MOUTH ONCE DAILY ACTIVE Indication: FOR VISIBLE WATER RETENTION 3) Non-VA METOPROLOL SUCCINATE 50MG SA TAB 50MG BY MOUTH ONCE ACTIVE DAILY Indication: FOR CHRONIC HEART FAILURE 4) Non-VA SACUBITRIL 24MG/VALSARTAN 26MG TAB 1 TABLET BY MOUTH ACTIVE TWICE DAILY Indication: FOR CHRONIC HEART FAILURE 7 Total Medications Allergies: Patient has answered NKA No Vitals Were Found /blair/ Garry Rocha MD, MPH [id number] [facility] TelePain Lead Signed: 07/07/2024 13:52 GARRY ROCHA CN[facility]
--- OUTSIDE RECORDS SUMMARY | 2024-09-07 17:35 | XMS_ITS ---
Author Name Department of Veter[facility] [place] Organization [place] Address [address] [place] [address] Care Team Providers Care Retail Planner Name Role Phone DELIA CHRISTIANSEN Primary Care Provider Unavailsaint [facility] Insurance Providers: All historical and current [...] Garner's Name Patient's Relationship to Policy Garner [facility] CE ORGANIZAT ION [facility] Apr 03, 2012 [id number] [phone] DIANE RASCON [facility] ORGANIZAT ION HEALT H [facility] Dec 02, 2023 [id number] [phone] WILDA RASCON NATURAL CHILD OPTUM RX PRESCRIPT ION HNE O Dec 02, 2023 [facility] [id number] [phone] WILDA RASCON NATURAL CHILD Selected Encounter This section includes the information on record at [place] for the Encounter. Date/Time Encounter Type Encounter Description Reason Provider Source Jun 12, 2024 02:00 PM PSYTX W PT 45 MINUTES [facility] - IND ICD-10-CM F33.1 Major depressive disorder, recurrent, moderate TARIQ TRAN [facility] Encounter Template Text not used by [place] Assessments - Encounter Diagnoses This section includes the primary and secondary diagnoses documented for the Encounter. Date/Time Primary/Secondary Diagnosis Diagnosis Name Provider Source Jun 12, 2024 03:01 PM PRIMARY Major depressive disorder, recurrent, moderate PENNYDELILAH Ziyad [place] [facility] [place] [facility] Jun 12, 2024 03:01 PM SECONDARY Generalized anxiety disorder DELILAH FRANCIS [facility] [place] [facility] [...] 26, 2024 02:00 PM AMBULATORY - PSYCHIATRY [place] [facility] [place] [facility] Jul 06, 2024 11:30 AM AMBULATORY - PSYCHIATRY [place] [facility] [place] [facility] Jul 07, 2024 01:30 PM AMBULATORY - NEUROLOGY [place] [facility] [place] [facility] Jul 07, 2024 01:30 PM AMBULATORY - NEUROLOGY [facility] Jul 17, 2024 02:00 PM AMBULATORY - PSYCHIATRY [place] [facility] [place] [facility] Jul 30, 2024 03:00 PM AMBULATORY - MEDICINE [place] C [place] [facility] Aug 07, 2024 02:00 PM AMBULATORY - PSYCHIATRY [place] [facility] [place] [facility] Sep 04, 2024 02:00 PM AMBULATORY - PSYCHIATRY [place] [facility] [place] [facility] Sep 18, 2024 02:00 PM AMBULATORY - PSYCHIATRY [place] [facility] [place] [facility] October 05, 2024 11:00 AM AMBULATORY - PSYCHIATRY [place] [facility] October 05, 2024 03:30 PM AMBULATORY - NONE [place] [facility] [place] [facility] Social History: Smoking Status (Most [...] 01, 2024 08:30 AM VA-TOBACCO FORMER USER [facility] Tobacco Use History This section includes a history of the smoking, or tobacco-related health factors, that were collected on or before the date of the Encounter. The data comes from the [place] facility where the Encounter took place. Date/Time Smoking Status/Tobac co Use Comment Facility Apr 01, 2024 08:30 AM VA-TO[facility]ACCO [facility]RS [facility] Jan 09, 2023 05:09 PM VA-[facility]ACCO [facility] Jan 09, 2023 05:09 PM VA-TOBACCO QUIT 15 YRS OR MORE [facility] Jan 04, 2017 07:42 AM LIFETIME NON-TOBACCO USER [facility] Dec 26, 2015 09:20 AM QUIT TOBACCO USE > 7 YEARS AGO [facility] 1997 [facility] October 27, 2003 03:29 PM HISTORY OF SMOKING Smoke free 6 years [facility] Jan 02, 2002 08:56 AM [facility]MO[facility] Jan 02, 2002 08:56 AM QUIT TOBACCO USE > 7 YEARS AGO [facility] Jan 14, 2001 11:25 AM HISTORY OF SMOKING non smoker 4 years [facility] Encounter Notes: All associated encounter notes This section contains the clinical notes associated to the Encounter. Date/Time Encounter Note(s) Provider Source Jun 12, 2024 02:53 PM TELEHEALTH NOTE: LOCAL TITLE: [place] VIDEO CONNECT PSYCHOLOGY NOTE STANDARD TITLE: TELEHEALTH NOTE DATE OF NOTE: JUN 12, 2024@14:53 ENTRY DATE: JUN 12, 2024@14:53:48 AUTHOR: DELILAH FRANCIS COSIGNER: TARIQ TRAN URGENCY: STATUS: COMPLETED [place] VIDEO CONNECT PSYCHOLOGY NOTE Has ADDENDA This [...] of depression, anxiety and insomnia. DATA: The [place] shared that he was attending the session from a room at [facility] where he had been for the past 9 or so days due to health issues. He shared that in the past several weeks he had both an emotional and then physical breakdown. We processed some conflict with his family that had resulted in significant emotional distress for the , making him feel like he was being blamed for everything in his family. This fortunately resolved with some time, but shortly thereafter the Freeman started experiencing issues with his breathing. He presented to the emergency room where he was diagnosed with congestive heart failure. Over the past week in the hospital he has stabilized and is expecting to be discharged shortly. We processed his treatment plan, which includes medication and some significant lifestyle changes (diet/exercises). We processed his feeling about the past several weeks. ASSESSMENT: The Freeman was on time to the appointment and [...] endorsed feeling more hopeful at present. PLAN: Freeman will RTC for individual psychotherapy on 06/26/2024 with provider, Dr. Delilah Francis. [place] [facility] ([place]) Standard Documentation [facility] Clinician Resources Only: E911 (Emergency Call Relay Center): [phone] National Veterans Crisis Line - 988 then press #1. [place] Suicide Coordinator [phone], Ext. [phone]; Back-up Ext. [phone] [place] Police, [place] [phone] Introduction: Visit is being conducted by [email or web address]. identified with 2 identifiers: [X] Full Name [ ] Date of [ ] VA ID Card [X] Visual Recognition Emergency Plan: confirmed and/or provided the following information in case of emergency or technology failure. PATIENT PHONE - PHONE NUMBER [CELLULAR] - Is patient phone number correct, if not, enter below: Freeman's phone number: DIANE RASCON [address], [place], [address] Freeman's present location and address for appointment: [address] [address] 's emergency contact name and phone number: Wilda Rascon Freeman reported that location is private and safe: Yes Informed Consent: informed of the risks and benefits of Telehealth video care. [place] has the right to refuse video services. If refuses video visit, a [id number]-gucr visit will be scheduled. verbalized consent for this video visit: Yes provided consent for any other persons present for visit: N/A If yes, who and relationship to patient: Secure visit: Visit was locked for security and privacy:Yes /blair/ DELILAH FRANCIS, PHD [facility] Post-Doctoral Psychology Trainee Signed: 06/12/2024 15:00 /blair/ TARIQ TRAN PSYD PSYCHOLOGIST Cosigned: 06/12/2024 16:35 Receipt Acknowledged By: 06/15/2024 14:28 /blair/ VIKTOR CHIU MD PSYCHIATRIST 06/12/2024 ADDENDUM STATUS: COMPLETED I have reviewed this case and concur with the clinical impressions and recommendations made by this trainee who is under my clinical supervision. /blair/ TARIQ TRAN PSYD PSYCHOLOGIST Signed: 06/12/2024 16:35 DELILAH FRANCIS [facility]
--- OUTSIDE RECORDS SUMMARY | 2024-09-07 17:35 | XMS_ITS ---
Author Name [facility] [place] Organization [place] Address [address] [place] [address] Care Team Providers Care Molding And Trim Installer Name Role Phone DELIA CHRISTIANSEN Primary Care Provider [facility] Insurance Providers: All historical and current [...] Garner's Name Patient's Relationship to Policy Garner [facility] CE ORGANIZAT ION [facility] Apr 03, 2012 [id number] DIANE RASCON [facility] ORGANIZAT ION HEALT H [facility] Dec 02, 2023 [id number] [phone] WILDA RASCON NATURAL CHILD OPTUM RX PRESCRIPT ION HNE O Dec 02, 2023 [facility] [id number] [phone] WILDA RASCON NATURAL CHILD Selected Encounter This section includes the information on record at [place] for the Encounter. Date/Time Encounter Type Encounter Description Reason Provider Source Aug 07, 2024 02:00 PM PSYTX W PT 45 MINUTES [facility] - IND ICD-10-CM F33.1 Major depressive disorder, recurrent, moderate TARIQ TRAN [facility] Encounter Template Text not used by [place] Assessments - Encounter Diagnoses This section includes the primary and secondary diagnoses documented for the Encounter. Date/Time Primary/Secondary Diagnosis Diagnosis Name Provider Source Aug 07, 2024 02:57 PM PRIMARY Major depressive disorder, recurrent, moderate PENNYDELILAH Ziyad [facility] Plan of Treatment: Future Appointments (+ 6 months) and Future Tests (+/- 45 days) The Plan of Treatment section includes future care activities for the patient from all [place] [facility]. This section includes future appointments and future orders which are active, pending or scheduled. Future Appointments This section includes appointments that were scheduled to occur 6 months from the date of the Encounter, up to a maximum of 20 appointments. The data comes from all [place] treatment facilities. Appointment Date/Time Appointment Type Appointme nt Facility Name Sep 04, 2024 02:00 PM AMBULATORY - PSYCHIATRY [facility] Sep 18, 2024 02:00 PM AMBULATORY - PSYCHIATRY [facility] October 05, 2024 11:00 AM [facility] October 05, 2024 03:30 PM [facility] Dec 14, 2024 03:30 PM [facility] Social History: Smoking Status (Most [...] took place. Date/Time Current Smoking Status Comment [facility] it Apr 01, 2024 08:30 AM VA-TOBACCO FORMER USER [facility] Tobacco Use History This section includes a history of the smoking, or tobacco-related health factors, that were collected on or before the date of the Encounter. The data comes from the [place] facility where the Encounter took place. Date/Time Smoking Status/Tobac co Use Comment Facility Apr 01, 2024 08:30 AM [place]-TOBACCO QUIT 15 YRS OR MORE [facility] Jan 09, 2023 05:09 PM VA-TOBACCO [facility] Jan 09, 2023 05:09 PM VA-TOBACCO QUIT 15 YRS OR MORE [facility] Jan 04, 2017 07:42 AM LIFETIME NON-TOBACCO [facility]ER [facility] Dec 26, 2015 09:20 AM QUIT TOBACCO USE > 7 YEARS AGO quit in 1997 [facility] October 27, 2003 03:29 PM HISTORY OF SMOKING Smoke free 6 years [facility] Jan 02, 2002 08:56 AM HISTORY OF SMOKING [facility] Jan 02, 2002 08:56 AM QUIT TOBACCO USE > 7 YEARS AGO [facility] Jan 14, 2001 11:25 AM HISTORY OF SMOKING non smoker 4 years [facility] Encounter Notes: All associated encounter notes This section contains the clinical notes associated to the Encounter. Date/Time Encounter Note(s) Provider Source Aug 07, 2024 02:03 PM TELEHEALTH NOTE: LOCAL TITLE: [place] VIDEO CONNECT PSYCHOLOGY NOTE STANDARD TITLE: TELEHEALTH NOTE DATE OF NOTE: AUG 07, 2024@14:03 ENTRY DATE: AUG 07, 2024@14:03:49 AUTHOR: DELILAH FRANCIS COSIGNER: TARIQ TRAN URGENCY: [...] a 50 minute individual psychotherapy appointment on 08/07/2024 in the treatment of depression, anxiety and insomnia. DATA: The shared that he was feeling about the same as before. We processed his experience of cardiac rehab, and his plans to engage in his own exercise once he was finished with this. We processed issues in his marriage, and the 's experiences of invalidation. We explored the progression of these challenges, the impact, and how they are reflected in the clinical relationship. ASSESSMENT: The [place] was on time to the appointment and [...] PLAN: will RTC for individual psychotherapy on 08/21/2024 with provider, Dr. Delilah Francis. [place] Appsembler Connect ([facility]) Standard Documentation [facility] Clinician Resources Only: E911 (Emergency Call Relay Center): [phone] National Veterans Crisis Line - 988 then press #1. [facility] Suicide Coordinator [phone], Ext. [phone]; Back-up Ext. [phone] [place] Police, [place] [phone] Introduction: Visit is being conducted by [place] MyCheck. [place] identified with 2 identifiers: [X] Full Name [ ] Date of [ ] [place] ID Card [X] Visual Recognition Emergency Plan: confirmed and/or provided the following information in case of emergency or technology failure. PATIENT PHONE - PHONE NUMBER [CELLULAR] - Is patient phone number correct, if not, enter below: [place]'s phone number: DIANE RASCON [address], [place], [address] 's present location and address for appointment: [address] [address] 's emergency contact name and phone number: Wilda Arlyn reported that location is private and safe: Yes Informed Consent: [place] informed of the risks and benefits of Telehealth video care. [place] has the right to refuse video services. If refuses video visit, a fcbp-lc-gflt visit will be scheduled. verbalized consent for this video visit: Yes [place] provided consent for any other persons present for visit: N/A If yes, who and relationship to patient: Secure visit: Visit was locked for security and privacy: Yes Suicide Screen: C-SSRS Screening [place]-Suicide Severity Rating Scale (C-SSRS Screener) 1. Over [...] to other questions. /blair/ DELILAH FRANCIS, PHD [facility] Post-Doctoral Psychology Trainee Signed: 08/07/2024 14:56 /blair/ TARIQ TRAN PSYD PSYCHOLOGIST Cosigned: 08/07/2024 16:09 08/07/2024 ADDENDUM STATUS: COMPLETED I have reviewed this case and concur with the clinical impressions and recommendations made by this trainee who is under my clinical supervision. /blair/ TARIQ TRAN PSYD PSYCHOLOGIST Signed: 08/07/2024 16:09 DELILAH FRANCIS [facility]
--- OUTSIDE RECORDS SUMMARY | 2024-09-07 17:35 | XMS_ITS | Encounter Summary ---
Author Name [place] Address [address] [place] [address] Care Team Providers Care Deputy Program Manager Name Role Phone DELIA CHRISTIANSEN Primary [facility] Insurance Providers: All historical and [...] Name Patient's Relationship to Policy Garner [facility] CE ORGANIZAT ION [facility] Apr 03, 2012 [phone] DIANE RASCON [facility] CE ORGANIZAT ION HEALT H [facility] [place] Dec 02, 2023 [id number] [phone] ANTONIETA RASCON NATURAL CHILD OPTUM RX PRESCRIPT ION HNE O Dec 02, 2023 [facility] [id number] [phone] ANTONIETA RASCON NATURAL CHILD Selected Encounter This section includes the information on record at [place] for the Encounter. Date/Time Encounter Type Encounter Description Reason Pro vider Source Mar 31, 2024 02:30 PM Outpatient Encounter ADMIN PAT ACTIVTIES (MASNONCT) IHE Encounter Template Text not used by [place] Plan of Treatment: Future Appointments (+ 6 months) and Future Tests (+/- 45 days) The Plan of Treatment section includes future care activities for the patient from all [place] treatmentfaadventhealthities. This section includes future appointments and future [...] AMBULATORY - [facility]IATRY [facility] [place] [facility] Apr 24, 2024 02:00 PM AMBULATORY - PS[facility]ATRY [facility] [place] [facility] May 04, 2024 03:00 PM AMBULATORY - PS[facility]IATRY [facility] [place] [facility] May 15, 2024 02:00 PM AMBULATORY - PS[facility]CHIATRY [facility] [place] [facility] May 25, 2024 03:00 PM AMBULATORY - PS[facility]IATRY [facility] [place] [facility] Jun 12, 2024 02:00 PM AMBULATORY - PS[facility]IATRY [facility] [place] [facility] Jun 26, 2024 02:00 PM AMBULATORY - PS[facility]IATRY [facility] [place] [facility] Jul 06, 2024 11:30 AM AMBULATORY - PS[facility]IATRY [facility] [place] [facility] Jul 07, 2024 01:30 PM AMBULATORY - NEUROLOGY [facility] [place] [facility] Jul 07, 2024 01:30 PM [facility]BULATORY [facility] Jul 17, 2024 02:00 PM AMBULATORY - PS[facility]CHIATRY [facility] [place] [facility] Jul 30, 2024 03:00 PM AMBULATORY - MEDICINE [facility] [place] [facility] Aug 07, 2024 02:00 PM AMBULATORY - PS[facility]CHIATRY [facility] [place] [facility] Sep 04, 2024 02:00 PM AMBULATORY - PS[facility]CHIATRY [facility] [place] [facility] Sep 18, 2024 02:00 PM AMBULATORY - PS[facility]CHIATRY [facility] [place] [facility] Active, Pending, and Scheduled Orders This section includes a listing of several types of active, pending, and scheduled orders, including clinic medications orders, diagnostic test orders, procedure orders and consult orders; where the start date of the order is 45 days before the date of the Encounter or 45 days after the date of theEncounter. The data comes from all [place] treatment facilities. Test Date/Time Test Type Test Details Facility Name Apr 07, 2024 10:17 AM Consult Order COMMUNITY CARE-OPTOMETRY ROUTINE EYE EXAM Cons Returned Goods Sorter's Choice [facility] Social History: Smoking Status (Most [...] 09, 2023 05:09 PM VA-TOBACCO FORMER USER [facility] Tobacco Use History This section includes a history of the smoking, or tobacco-related health factors, that were collected on or before the date of the Encounter. The data comes from the [place] facility where the Encounter took place. Date/Time Smoking Status/Tobac co Use Comment Facility Jan 09, 2023 05:09 PM VA-TOBACCO QUIT 15 YRS OR MORE [facility] Jan 04, 2017 07:42 AM LIFETIME NON-TOBACCO USER [facility] Dec 26, 2015 09:20 AM QUIT TOBACCO USE > 7 YEARS AGO quit in 1997 [facility] October 27, 2003 03:29 PM HISTORY OF SMOKING Smoke free 6 years [facility] Jan 02, 2002 08:56 AM HISTORY OF SMOKING [facility] Jan 02, 2002 08:56 AM QUIT TOBACCO USE > 7 YEARS AGO [facility] Jan 14, 2001 11:25 AM HISTORY OF SMOKING non smoker 4 years [facility] Encounter Notes: All associated encounter notes This section contains the clinical notes associated to the Encounter. Date/Time Encounter Note(s) Provider Source Mar 31, 2024 02:19 PM NEUROLOGY OUTPATIE NT NOTE: LOCAL TITLE: NEUROLOGY CLINIC NOTE STANDARD TITLE: NEUROLOGY OUTPATIENT NOTE DATE OF NOTE: MAR 31, 2024@14:19 ENTRY DATE: MAR 31, 2024@14:19:30 AUTHOR: GARRY ROCHA EXP COSIGNER: URGENCY: STATUS: COMPLETED Tele-Headache Progress Note The consented to telehealth services. Patient address and safety in case of emergency were confirmed. Patient's phone number and Emergency Contact phone number were confurmed In Attendence:1) Rochelle 2)Provider CC:Headache Last Visit: Impression: 1-Migraines, in [...] potentially hazardous substance ([facility] [id number]) 2. Binge eating behaviour 3. Insomnia 4. Anxiety 5. Depression 6. HTN - Hypertension (SCT [id number]) 7. Sleep apnea 8. Tinnitus 9. Cluster headache (SNOMED CT 857392923) 10. Calculus of Kidney 11. Chronic sinusitis 12. Obesity (SNOMED CT 334798087) Current Medication List: Active Outpatient Medications (including [...] potentially hazardous substance ([facility] [id number]) 2. Binge eating behaviour 3. Insomnia 4. Anxiety 5. Depression 6. HTN - Hypertension ([facility] [id number]) 7. Sleep apnea 8. Tinnitus 9. Cluster headache (SNOMED CT 303848617) 10. Calculus of Kidney 11. Chronic sinusitis 12. Obesity (SNOMED CT 671093627) Active Outpatient Medications (including Supplies): Active Outpatient [...] Found /blair/ Garry Rocha MD, MPH [id number] [facility] TelePain Lead Signed: 04/07/2024 10:16 GARRY ROCHA [facility]
--- OUTSIDE RECORDS SUMMARY | 2024-09-07 17:35 | XMS_ITS | Encounter Summary ---
Author Name [facility] [place] Address [address] [place] [address] Care Team Providers Care Cupola Operator Name Role Phone DELIA CHRISTIANSEN Primary [facility] Provider [facility] Insurance Providers: All historical and current [...] Garner's Name Patient's Relationship to Policy Garner [facility] CE ORGANIZAT ION [facility] Apr 03, 2012 [id number] [phone] DIANE RASCON [facility] CE ORGANIZAT ION HEALT H [facility] [place] Dec 02, 2023 [id number] [phone] ANTONIETA RASCON NATURAL CHILD OPTUM RX PRESCRIPT ION HNE O Dec 02, 2023 [facility] [id number] [phone] ANTONIETA RASCON NATURAL CHILD Selected Encounter [...] activities for the patient from all VA treatmentfamission hospitalities. This section includes future appointments and [...] AMBULATORY - PS[facility]CHIATRY [facility] [place] [facility] Nov 15, 2023 02:00 PM AMBULATORY - PSYCHIATRY [facility] [place] [facility] Nov 28, 2023 02:00 PM AMBULATORY - PSYCHIATRY [facility] [place] [facility] Dec 02, 2023 03:30 PM AMBULATORY - MEDICINE [facility] [place] [facility] Dec 20, 2023 02:00 PM AMBULATORY - PSYCHIATRY [facility] [place] [facility] Jan 17, 2024 02:00 PM AMBULATORY - PSYCHIATRY [facility] [place] [facility] Jan 31, 2024 02:00 PM AMBULATORY - PSYCHIATRY [facility] [place] [facility] Feb 11, 2024 02:30 PM AMBULATORY - NEUROLOGY [facility] [place] [facility] Feb 28, 2024 02:00 PM AMBULATORY - PSYCHIATRY [facility] [place] [facility] Mar 09, 2024 03:30 PM AMBULATORY - MEDICINE [facility] [place] [facility] Mar 13, 2024 02:00 PM AMBULATORY - PSYCHIATRY [facility] [place] [facility] Mar 24, 2024 11:00 AM AMBULATORY - MEDICINE [facility] [place] [facility] Mar 27, 2024 02:00 PM AMBULATORY - PSYCHIATRY [facility] [place] [facility] Mar 31, 2024 02:30 PM AMBULATORY - NEUROLOGY [facility] [place] [facility] Mar 31, 2024 02:30 PM AMBULATORY - [place]OLOGY [place] [facility] Apr 01, 2024 08:30 AM AMBULATORY - PSYCHIATRY [facility] [place] [facility] Apr 24, 2024 02:00 PM AMBULATORY - PSYCHIATRY [facility] [place] [facility] Social History: Smoking Status (Most [...] took place. Date/Time Current Smoking Status Comment [facility] Jan 09, 2023 05:09 PM VA-TOBACCO FORMER USER [facility] Tobacco Use History This section includes a history of the smoking, or tobacco-related health factors, that were collected on or before the date of the Encounter. The data comes from the [place] facility where the Encounter took place. Date/Time Smoking Status/Tobac co Use Comment Facility Jan 09, 2023 05:09 PM [place]-TO[place] QUIT 15 YRS OR MORE [facility] Jan 04, 2017 07:42 AM LIFETIME NON-TOBACCO USER [facility] Dec 26, 2015 09:20 AM QUIT TOBACCO USE > 7 YEARS AGO quit in 1997 [facility] October 27, 2003 03:29 PM HISTORY OF SMOKING Smoke free 6 years [facility] Jan 02, 2002 08:56 AM HISTORY OF SMOKING [facility] Jan 02, 2002 08:56 AM QUIT TOBACCO USE > 7 YEARS AGO [facility] Jan 14, 2001 11:25 AM HISTORY OF SMOKING non smoker 4 years [facility] Encounter Notes: All associated encounter notes This section contains the clinical notes associated to the Encounter. Date/Time Encounter Note(s) Provider Source October 30, 2023 03:31 PM NEUROLOGY OUTPATIE NT NOTE: LOCAL TITLE: NEUROLOGY CLINIC NOTE STANDARD TITLE: NEUROLOGY OUTPATIENT NOTE DATE OF NOTE: OCTOBER 30, 2023@15:31 ENTRY DATE: OCTOBER 30, 2023@15:31:14 AUTHOR: GARRY ROCHA COSIGNER: URGENCY: STATUS: COMPLETED [...] Anxiety 4. Depression 5. HTN - Hypertension ([facility] [id number]) 6. Sleep apnea 7. Tinnitus 8. Cluster headache (SNOMED CT 598107704) 9. Calculus of Kidney 10. Chronic sinusitis 11. Obesity (SNOMED CT 237883251) Current Medication List: Active Outpatient Medications (including [...] Anxiety 4. Depression 5. HTN - Hypertension ([facility] [id number]) 6. Sleep apnea 7. Tinnitus 8. Cluster headache (SNOMED CT 751451634) 9. Calculus of Kidney 10. Chronic sinusitis 11. Obesity (SNOMED CT 118305644) Active Outpatient Medications (including Supplies): Active Outpatient [...] MD, MPH [id number] [facility] TelePain Lead Signed: 10/30/2023 16:02 GARRY ROCHA [place] [facility]
--- OUTSIDE RECORDS SUMMARY | 2024-09-07 17:35 | XMS_ITS | Continuity of Care Document ---
Author Organization [facility] Address [address] [place] [id number]- Care Team Providers Care Fur Buyer Name Role Phone Eunice MINAYA, Luis Daniel Santillan Primary Care Physician Encounter [facility] Date(s): 08/04/24 - 09/03/24 [facility] [address] [place] [address]- Encounter Type: Triage Allergies, Adverse Reactions, Alerts No Known Allergies [...] influenza virus vaccine, inactivated 05/03/13 Give n [id number] bivalent booster vax 04/06/22 Recorded SARS-CoV-2 (COVID-19) [...] Refills, Maintenance, 06/13/24 9:00:00 AM EST, Tablet, [facility], Partial fill upon patient [...] 9:00:00 AM EST, Route to Pharmacy Electronically, [facility], Partial fill upon patient request if the prescription is for a schedule II opioid drug., 186, cm, 06/12/24 7:57:00 EST, Height, 162.3, kg,06/09/24 13:31:00 EST, Dry Weight Start Date: 06/13/24 Stop Date: 07/13/24 Status: Ordered Quantity: 30.0 Unit: tablet Repeat number: 1 metoprolol 100 mg oral tablet, extended release 100 mg, 1, tablet, By Mouth, Daily, take with 50mg tablet for total 150mg daily, # 30 tablet, Refills 3, Tot. Refills 3, Maintenance, 08/24/24 12:35:00 PM EDT, Route to Pharmacy Electronically, [facility], Partial fill upon patient request if the prescription is for a schedule II opioid drug., 186, cm, 06/26/24 10:19:00 EST, Height, 162.3, kg, 06/09/24 13:31:00 EST, Dry Weight Start Date: 08/24/24 Status: Ordered Quantity: 30.0 Unit: tablet Repeat number: 4 metoprolol 50 mg oral tablet, extended release 50 mg, 1, tablet, By Mouth, Daily, Take with 100mg tablet for total 150mg daily, # 30 tablet, Refills 3, Tot. Refills 3, Maintenance, 08/24/24 12:35:00 PM EDT, Route to Pharmacy Electronically, [facility], Partial fill upon patient request if the prescription is for a schedule II opioid drug., 186, cm, 06/26/24 10:19:00 EST, Height, 162.3, kg, 06/09/24 13:31:00 EST, Dry Weight Start Date: 08/24/24 Status: Ordered Quantity: 30.0 Unit: tablet Repeat number: 4 sacubitril-valsartan 49 mg-51 mg oral tablet 1 tablet, By Mouth, 2 times a day, # 60 tablet, 0 Refills, Maintenance, 08/04/24 2:51:00 PM EST, [facility], Partial fill upon patient request if the prescription is for a schedule II opioid drug., 1 tablet By Mouth 2 times a day, 186, cm, 06/26/24 10:19:00 EST, Height, 162.3, kg, 06/09/24 13:31:00 EST, Dry Weight Start Date: 08/04/24 Status: Ordered Quantity: 60.0 Unit: tablet Repeat number: 1 spironolactone 25 mg oral tablet 25 mg, 1, tablet, By Mouth, Daily, # 30 tablet, Refills 0, Tot. Refills 0, Maintenance, 06/13/24 9:00:00 AM EST, Route to Pharmacy Electronically, [facility], Partial fill upon patient request if the prescription is for a schedule II opioid drug., 186, cm, 06/12/24 7:57:00 EST, Height,162.3, kg, 06/09/24 13:31:00 EST, Dry Weight Start Date: 06/13/24 Stop Date: 07/13/24 Status: Ordered Quantity: 30.0 Unit: tablet Repeat number: 1 Trazodone = 100 mg, By Mouth, Daily at bedtime, 0 Refills, Maintenance, 12/10/23 9:55:00 AM EDT, Partial fill upon patient request if the prescription is for a schedule II opioid drug. Start Date: 12/10/23 Status: Ordered Repeat number: 1 Problem List Condition Confirmation [...] repeat 2026. 2colo 2011 nl repeat 2021 Social History Social History Type Response Smoking Status Former smoker entered on: 06/12/13 Sex Sex Representation Male (finding) Patient Care team information Care Team Personnel Name: Amarilys Sullivan RN Position: [facility] RN Member Role: Primary Care Nurse Name: Luis Daniel Dawson MD Position: [facility] Physician - Primary Care Member Role: PCP Address: [address] [place] [address]- Telecom: Name: Wei Cross RN Position: [facility] RN Member Role: Primary Care Nurse Care Team Related Persons Name: ELIO MARTINEZ Name: ANTONIETA RASCON Insurance Providers Guarantor name: DIANE RASCON Health Plan Information #: 1 Payer: [facility] [employer] Member Number: NA Policy Number: NA Group Number: NA
--- OUTSIDE RECORDS SUMMARY | 2024-09-07 17:35 | XMS_ITS | Patient Health Record ---
Author Organization [facility] Address [address] [place] [address] Care Team Providers Care Zinc Furnace Charger Name Role Phone Luis Daniel Dawson MD Primary Care Provider Guido Garcia Unavailable [phone] Allergies Allergen (clinical drug ingredient) Drug/Non Drug [...] Insured Coverage Start Date Coverage End Date [facility] [address] [facility] [place] [address] [id number] Wilda Stoddard Spouse - patient is the spouse of the insured Medical (General) History Medical History History ICD Code chicken pox Surgical History Surgery Date(Month/Year)
--- OUTSIDE RECORDS SUMMARY | 2024-09-07 17:35 | XMS_ITS ---
Author Name [facility] [place] Address [address] [place] [address] Care Team Providers Care Electric Repair Supervisor Name Role Phone DELIA CHRISTIANSEN Primary Care Provider [facility] Insurance Providers: All historical and current [...] Policy Garner [facility] CE ORGANIZAT ION [facility] Apr 03, 2012 [phone] DIANE RASCON [facility] ORGANIZAT ION HEALT H [facility] [place] Dec 02, 2023 [id number] [phone] ANTONIETA RASCON CHILD OPTUM RX PRESCRIPT ION HNE O Dec 02, 2023 [facility] [id number] ANTONIETA RASCON NATURAL CHILD Selected Encounter This section includes the information on record at [place] for the Encounter. Date/Time Encounter Type Encounter Description Reason Pro vider Source May 04, 2024 03:00 PM Outpatient Encounter [facility] - IND IHE Encounter Template Text not used by [place] Plan of Treatment: Future Appointments (+ 6 months) and Future Tests (+/- 45 days) The Plan of Treatment section includes future care activities for the patient from all [place] [facility]. This section includes future appointments and future orders which are active, pending or scheduled. Future Appointments This section includes appointments that were scheduled to occur 6 months from the date of the Encounter, up to a maximum of 20 appointments. The data comes from all [place] treatment facilities. Appointment Date/Time Appointment Type Appointme nt Facility Name May 15, 2024 02:00 PM AMBULATORY - PSYCHIATRY [facility] [place] [facility] May 25, 2024 03:00 PM AMBULATORY - PSYCHIATRY [facility] [place] [facility] Jun 12, 2024 02:00 PM AMBULATORY - PSYCHIATRY [facility] [place] [facility] Jun 26, 2024 02:00 PM AMBULATORY - PSYCHIATRY [facility] [place] [facility] Jul 06, 2024 11:30 AM AMBULATORY - PSYCHIATRY [facility] [place] [facility] Jul 07, 2024 01:30 PM AMBULATORY - NEUROLOGY [facility] [place] [facility] Jul 07, 2024 01:30 PM AMBULATORY - NEUROLOGY [facility] Jul 17, 2024 02:00 PM AMBULATORY - PSYCHIATRY [facility] [place] [facility] Jul 30, 2024 03:00 PM AMBULATORY - MEDICINE [facility] [place] [facility] Aug 07, 2024 02:00 PM AMBULATORY - PSYCHIATRY [facility] [place] [facility] Sep 04, 2024 02:00 PM AMBULATORY - PSYCHIATRY [facility] [place] [facility] Sep 18, 2024 02:00 PM AMBULATORY - PSYCHIATRY [facility] [place] [facility] October 05, 2024 11:00 AM AMBULATORY - PSYCHIATRY [facility] [place] [facility] October 05, 2024 03:30 PM AMBULATORY - NONE [place] [facility] [place] [facility] Active, Pending, and Scheduled Orders This section includes a listing of several types of active, pending, and scheduled orders, including clinic medications orders, diagnostic test orders, procedure orders and consult orders; where the start date of the order is 45 days before the date of the Encounter or 45 days after the date of theEncounter. The data comes from all [place] treatment facilities. Test Date/Time Test Type Test Details Facility Name Apr 07, 2024 10:17 AM Consult Order COMMUNITY CARE-OPTOMETRY ROUTINE EYE EXAM Cons Warp Knitter's Choice [facility] Social History: Smoking Status (Most current) and Tobacco Use (All prior to encounter date) This section includes the most current, and the historical, smoking and tobacco- related health factors from the [place] facility where the Encounter took place. Current Smoking Status This section includes the most current smoking, or tobacco-related health factor, from the [place] facility where the Encounter took place. Date/Time Current Smoking Status Comment Facil it Apr 01, 2024 08:30 AM [facility] Tobacco Use History This section includes a history of the smoking, or tobacco-related health factors, that were collected on or before the date of the Encounter. The data comes from the [place] facility where the Encounter took place. Date/Time Smoking Status/Tobac co Use Comment Facility Apr 01, 2024 08:30 AM VA-TOBACCO QUIT 15 [facility]RS [facility] [place] [facility] Jan 09, 2023 05:09 PM VA-TOBACCO FORMER USER [facility] Jan 09, 2023 05:09 PM VA-TOBACCO QUIT 15 YRS OR MORE [place] [facility] Jan 04, 2017 07:42 AM LIFETIME NON-TOBACCO USER [facility] [facility] Dec 26, 2015 09:20 AM QUIT TOBACCO USE > 7 YEARS AGO quit in 1997 [facility] [place] [facility] October 27, 2003 03:29 PM HISTORY OF SMOKING Smoke free 6 years [facility] [place] [facility] Jan 02, 2002 08:56 AM [facility]MOKING [facility] Jan 02, 2002 08:56 AM QUIT TOBACCO USE > 7 YEARS AGO [facility] [place] [facility] Jan 14, 2001 11:25 AM HISTORY OF SMOKING non smoker 4 years [facility]
--- OUTSIDE RECORDS SUMMARY | 2024-09-07 17:35 | XMS_ITS | Encounter Summary ---
Author Name [facility] [place] [facility] [place] [facility] [place] Address [address] [place] [id number] Care Team Providers Care Grey Roll Man Name Role Phone DELIA CHRISTIANSEN Primary [facility] Insurance Providers: All historical and current [...] Patient's Relationship to Policy Garner [facility] CE ORGANIZAT ION [facility] Apr 03, 2012 [id number] [phone] DIANE RASCON [facility] ORGANIZAT ION HEALT H [facility] Dec 02, 2023 [id number] [phone] WILDA RASCON NATURAL CHILD [employer] [facility] PRESCRIPT ION HNE O Dec 02, [address] [facility] [id number] [phone] WILDA RASCON NATURAL CHILD Selected Encounter This section includes the information on record at [place] for the Encounter. Date/Time Encounter Type Encounter Description Reason Provider Source May 15, 2024 02:00 PM PSYTX W PT 45 MINUTES [facility] - IND ICD-10-CM F33.1 Major depressive disorder, recurrent, moderate TARIQ TRAN [facility] Encounter Template Text not used by [place] Assessments - Encounter Diagnoses This section includes the primary and secondary diagnoses documented for the Encounter. Date/Time Primary/Secondary Diagnosis Diagnosis Name Provider Source May 15, 2024 04:00 PM PRIMARY Major depressive disorder, recurrent, moderate KARSTEN FRANCIS [place] [facility] [place] [facility] May 15, 2024 04:00 PM SECONDARY Generalized anxiety disorder KARSTEN FRANCIS [place] [facility] [place] [facility] May 15, 2024 04:00 PM SECONDARY Primary insomnia KARSTEN FRANCIS [place] [facility] [place] [facility] Plan of Treatment: Future Appointments (+ 6 months) and Future Tests (+/- 45 days) The Plan of Treatment section includes future care activities for the patient from all [place] treatmentfacilities. This section includes future appointments and [...] AMBULATORY - PSYCHIATRY [facility] [place] [facility] Jun 12, 2024 02:00 PM AMBULATORY - PSYCHIATRY [facility] [place] [facility] Jun 26, 2024 02:00 PM AMBULATORY - PSYCHIATRY [facility] [place] [facility] Jul 06, 2024 11:30 AM AMBULATORY - PSYCHIATRY [facility] [place] [facility] Jul 07, 2024 01:30 PM AMBULATORY - NEUROLOGY [facility] [place] [facility] Jul 07, 2024 01:30 PM AMBULATORY - NEUROLOGY [facility] Jul 17, 2024 02:00 PM AMBULATORY - PSYCHIATRY [facility] [place] [facility] Jul 30, 2024 03:00 PM AMBULATORY - MEDICINE [facility] [place] [facility] Aug 07, 2024 02:00 PM AMBULATORY - PSYCHIATRY [facility] [place] [facility] Sep 04, 2024 02:00 PM AMBULATORY - PSYCHIATRY [facility] [place] [facility] Sep 18, 2024 02:00 PM AMBULATORY - PS[facility]CHIATRY [facility] [place] [facility] October 05, 2024 11:00 AM [facility] October 05, 2024 03:30 PM AMBULATORY - NONE [facility] Active, Pending, and Scheduled Orders This section includes a listing of several types of active, pending, and scheduled orders, including clinic medications orders, diagnostic test orders, procedure orders and consult orders; where the start date of the order is 45 days before the date of the Encounter or 45 days after the date of theEncounter. The data comes from all [place] treatment facilities. Test Date/Time Test Type Test Details Facility Name Apr 07, 2024 10:17 AM Consult Order COMMUNITY CARE-OPTOMETRY ROUTINE EYE EXAM Cons Ui Designer's Choice [facility] Social History: Smoking Status (Most current) and Tobacco Use (All prior to encounter date) This section includes the most current, and the historical, smoking and tobacco- related health factors from the [place] facility where the Encounter took place. Current Smoking Status This section includes the most current smoking, or tobacco-related health factor, from the [place] facility where the Encounter took place. Date/Time Current Smoking Status Comment [facility] it Apr 01, 2024 08:30 AM VA-TOBACCO FORMER USER [facility] Tobacco Use History This section includes a history of the smoking, or tobacco-related health factors, that were collected on or before the date of the Encounter. The data comes from the [place] facility where the Encounter took place. Date/Time Smoking Status/Tobac co Use Comment Facility Apr 01, 2024 08:30 AM VA-TOBACCO QUIT 15 YRS OR MORE [facility] [place] [facility] Jan 09, 2023 05:09 PM VA-TOBACCO [facility] Jan 09, 2023 05:09 PM VA-TOBACCO QUIT 15 YRS OR MORE [facility] Jan 04, 2017 07:42 AM LIFETIME NON-TOBACCO USER [facility] Dec 26, 2015 09:20 AM QUIT TOBACCO USE > 7 YEARS AGO quit in 1997 [facility] October 27, 2003 03:29 PM HISTORY OF SMOKING Smoke free 6 years [facility] Jan 02, 2002 08:56 AM HISTORY OF SMOKING [facility] Jan 02, 2002 08:56 AM QUIT TOBACCO USE > 7 YEARS AGO [facility] Jan 14, 2001 11:25 AM HISTORY OF SMOKING non smoker 4 years [facility] Encounter Notes: All associated encounter notes This section contains the clinical notes associated to the Encounter. Date/Time Encounter Note(s) Provider Source May 15, 2024 03:02 PM TELEHEALTH NOTE: LOCAL TITLE: [place] [facility] PSYCHOLOGY NOTE STANDARD TITLE: TELEHEALTH NOTE DATE OF NOTE: MAY 15, 2024@15:02 ENTRY DATE: MAY 15, 2024@15:02:30 AUTHOR: KARSTEN FRANCIS COSIGNER: TARIQ TRAN URGENCY: STATUS: COMPLETED [place] [facility] PSYCHOLOGY NOTE Has ADDENDA This [...] his new proscriber and medication changes. The Manor shared that up until he contracted COVID [...] this idea. The provider observed that the Manor seemed more upbeat than usual despite having COVID, and we processed this together. ASSESSMENT: The Manor was on time to the appointment and was fully engaged. Grooming and dress were WNL. Gross motor function was WNL. Mood was euthymic and affect was congruent. Speech was normal in rate, tone and prosody. Insight and judgement were intact. There was no evidence of A/VH or thought disorder. No SI/emergent risk. PLAN: Manor will RTC for individual psychotherapy on 06/12/2024 with provider, Dr. Karsten Francis. [place] [facility] Connect (VVC) Standard Documentation VVC Clinician Resources Only: E911 (Emergency Call Relay Center): [phone] National [employer] Crisis Line - 988 then press #1. [facility] Suicide Coordinator [phone], Ext. [phone]; Back-up Ext. [phone] [place] Police, [place] [phone] Introduction: Visit is being conducted by [place] [employer]. identified with 2 identifiers: [X] Full Name [X] Date of [ ] VA ID Card Emergency Plan: confirmed and/or provided the following information in case of emergency or technology failure. PATIENT PHONE - PHONE NUMBER [CELLULAR] - Is patient phone number correct, if not, enter below: Manor's phone number: DIANE RASCON [address], [place], [address] Manor's present location and address for appointment: Home address above. Manor's emergency contact name and phone number: Wilda Rascon Manor reported that location is private and safe: Yes Informed Consent: Manor informed of the risks and benefits of Telehealth video care. Manor has the right to refuse video services. If refuses video visit, a [id number] visit will be scheduled. Manor verbalized consent for this video visit: Yes provided consent for any other persons present for visit: N/A If yes, who and relationship to patient: Secure visit: Visit was locked for security and privacy:Yes /blair/ KARSTEN FRANCIS, PHD [facility] Post-Doctoral Psychology Trainee Signed: 05/15/2024 16:00 /blair/ TARIQ TRAN PSYD PSYCHOLOGIST Cosigned: 05/15/2024 16:26 05/15/2024 ADDENDUM STATUS: COMPLETED I have reviewed this case and concur with the clinical impressions and recommendations made by this trainee who is under my clinical supervision. /es/ TARIQ TRAN PSYD PSYCHOLOGIST Signed: 05/15/2024 16:27 [facility] FRANCIS [facility]
== END ==
LOC: HO.CARD 14:43
PROVIDERS: PCP Internal Medicine
DX: I50.9 Heart failure, unspecified (principal)
CPT/HCPCS: 93306

== ENCOUNTER → 2024-09-07 14:45 | Outpatient (BNV) | payer OTHER, SELFPAY | PROVIDERS: PCP Internal Medicine; Visit Provider Internal Medicine | DX: I50.9 Heart failure, unspecified (principal) | CPT/HCPCS: 93306 ==

== ENCOUNTER 2024-09-22 13:43 | Outpatient (AMB) | payer OTHER, SELFPAY ==
--- NOTE | 2024-09-22 14:05 | MHC.OFFVIS ---
Vital Signs 09/22/24 14:06 Height 6 ft 1 in Weight 330 lb 11.094 oz BMI 43.6 BP 112/60 Blood Pressure Location Lt brachial Position Sitting Pulse 72 Pulse Source Pulse Oximeter Intake Visit Reasons: 3m follow up/ Echo Allergies perflutren Adverse Reaction (Verified 09/07/24 15:53) Headache Medication List - Last Reconciled 09/22/24 by Niraj Montano NP dapagliflozin propanediol 10 mg PO DAILY metoprolol succinate ER 50 mg PO DAILY sacubitril-valsartan 24-26 mg (Entresto) 1 tab PO BID spironolactone 12.5 mg See Protocol PO DAILY HPI Comments Details: This is a 54-year-old male patient presenting for follow-up after repeating his echocardiogram. Patient with medical history significant for congestive heart failure due to nonischemic cardiomyopathy with a previous LVEF of 15-20%, sleep apnea, obesity, and mood disorder. Earlier this year patient was hospitalized for acute decompensated heart failure. Patient was diuresed and subsequently transferred to [facility] for further evaluation with a cardiac catheterization was normal. Patient also underwent a cardiac MRI which suggested possible myocarditis versus infiltrative cardiomyopathy. During his hospitalization, he also experienced NSVT and was recommended a LifeVest placement which he declined. Since then, he has been started on guideline directed medical therapy for heart failure. The patient states he is scheduled for a repeat cardiac MRI next month as initially planned during his hospital stay. Patient would like to get this done. Today, patient is here to review his echo results and is reporting compliance with all his prescribed medications. Patient is denying any cardiac symptoms including exertional chest pain, shortness of breath, palpitations, dizziness, orthopnea, PND, leg edema, presyncope, or syncope. Patient reports having completed a 12 week cardiac rehab program at [facility] as of last week. He states that he has been trying to stay active independently and has started to lose some weight. [facility] Medical History JW (obstructive sleep apnea) Mood disorder Social History Household Members: Spouse and Other Household Members Other:: son, mother Housing: House Do you presently have visiting nurse or other home services: No Patient Tobacco Use Status: Never used Tobacco service: No Review of Systems Const Denies weakness ENT Denies dizziness Card Denies chest pain, Denies chest pain with activity, Denies syncope, Denies rapid heart rate, Denies pedal edema, Denies edema, Denies leg edema, Denies lightheadedness, Denies palpitations, Denies dyspnea, Denies dyspnea on exertion and Denies orthopnea Resp Denies cough, Denies dyspnea and Denies dyspnea on exertion GI Denies hematochezia and Denies change in stool character Musc Denies abnormal gait, Denies muscle cramps, Denies muscle weakness, Denies numbness, Denies radiating pain into limb and Denies tingling Neuro Denies abnormal gait, Denies dizziness, Denies syncope, Denies numbness, Denies tingling and Denies weakness Endo Denies palpitations Physical Exam Vital Signs: Last Vital Signs Pulse 72 09/22/24 14:06 BP 112/60 09/22/24 14:06 BMI result Body Mass Index 43.6 Const General: cooperative, healthy appearing, comfortable and no acute distress Orientation/consciousness: patient oriented x3 HEENT Head: Yes normal to inspection Neck Neck: Yes normal visual inspection, Yes trachea midline and Yes supple Chest Chest palpation & inspection: normal inspection of the chest Resp Effort & Inspection: normal respiratory effort Auscultation: clear to auscultation bilaterally, no crackles, no rales, no rhonchi and no wheezes Cardio Jugular venous distension: no JVD Palpation: normal PMI Rate: regular rate Rhythm: regular rhythm Heart sounds: S1 normal heart sound present, S2 normal heart sound present, no click, no gallops, no murmurs and no rubs Peripheral pulses: Peripheral pulses 2+ throughout GI Inspection: Yes normal to inspection Palpation (GI): Soft to palpation Auscultation: normal bowel sounds Skin General skin exam: no rashes or lesions noted Neuro General: patient oriented x3 Extrem General: Yes normal to inspection, No no pedal edema and No calf tenderness Psych Appearance: grossly normal Mental Status: mental status grossly normal Speech and movement: Normal speech and movement present Assessment & Plan Assessment & Plan (1) CHF (congestive heart failure): Code(s): I50.9 - Heart failure, unspecified Category: Medical Qualifiers: Heart failure chronicity: acute Heart failure type: unspecified Qualified Code(s): I50.9 - Heart failure, unspecified (2) JW (obstructive sleep apnea): Code(s): G47.33 - Obstructive sleep apnea (adult) (pediatric) Category: Medical Plan 09/07/2024-patient underwent an echo study that showed an improved ejection fraction at 49% with no wall motion or valvular abnormalities. Continue Farxiga, metoprolol, Entresto, spironolactone. We will periodically monitor his labs. Clinically euvolemic and stable. Patient has an upcoming cardiac MRI at [facility]. Blood pressure today is well-controlled. Advised monitoring blood pressure at home with an ideal goal less than 130/80. Recommended to continue with heart healthy diet, regular exercise, weight loss, low-salt diet, fluid restriction at 1.5 L daily, med compliance, and aggressive management of his vascular risk factors. Patient will follow-up with Dr. Humphreys in 6 months' time. In the interim, patient will call us with any questions or change in symptoms. This note was generated using voice recognition software. While every effort has been made to ensure accuracy and proper emergency medical service manager, there may be occasional errors that could affect the content or meaning of the described symptoms. Orders: Orders Basic Metabolic Panel 3 Months I50.9 - Heart failure, unspecified Coding Level of Care Code Est Pt Level 4 (68370) Complex EM visit Add On G2211 Diagnoses CHF (congestive heart failure) I50.9 Heart failure chronicity: acute Heart failure type: unspecified JW (obstructive sleep apnea) G47.33 Time Spent (min) 32 Comment Time spent in reviewing the chart, test results, assessment, counseling and documentation.
[2024-09-22 14:06] VITALS: BP 112/60; PULSE 72; BMI 43.6
--- OUTSIDE RECORDS SUMMARY | 2024-09-22 16:21 | XMS_ITS | Continuity of Care Document ---
Author Name [facility] Organization DOD-MS Care Team Providers Care Analysis Internship Name Role Phone DOD-MS Unavailable Unavailable Problems Combined list of problems [...] [facility] Cluster headache (SNOMED CT 597086244) Active Condition [facility] Exposure to potentially hazardous substance (SCT [id number]) Active Condition Dec 02 Entered By: MANUELA ARTEAGA Comment: Entered automatically through [facility] Problem List documentation program [facility] HTN - Hypertension (SCT 33986356) Active Condition [facility] Insomnia Active Condition [facility] Obesity (SNOMED CT 007293256) Active Condition [facility] Recurrent major depression Active Condition [facility] HYPERTROPHY OF BREAST Inactive Condition 11/17/2004 [facility] ROUTINE MEDICAL EXAM Inactive Condition 11/17/2004 [facility] Diagnosis: ICD-10-CM F51.01 Primary insomnia Active Diagnosis [facility] Diagnosis: ICD-10-CM F33.1 Major depressive disorder, recurrent, moderate Active Diagnosis [facility] Diagnosis: ICD-10-CM Z02.89 Encounter for other administrative examinations Active [facility] Diagnosis: ICD-10-CM G43.019 Migraine w/o aura, intractable, without status migrainosus Active Diagnosis [facility] Diagnosis: ICD-10-CM E66.9 Obesity, unspecified Active Diagnosis [facility] Diagnosis: ICD-10-CM H93.19 Tinnitus, unspecified ear [facility] Diagnosis: ICD-10-CM F41.1 Generalized anxiety disorder [facility] Diagnosis: ICD-10-CM Z23 Encounter for immunization Active Diagnosis [facility] [place] [facility] Diagnosis: ICD-10-CM F50.81 Binge eating disorder Active Diagnosis [facility] Diagnosis: ICD-10-CM I10 Essential (primary) hypertension [facility] Medications Combined list of outpatient [...] FOR VITAMIN SUPPLEME NTATION ORAL ACTIVE 12/02/2024 [id number] DELIA CHRISTIANSEN 2023 100 [facility] DAPAGLIFLOZ IN 10MG TAB TAKE ONE TABLET BY MOUTH EVERY MORNING ORAL ACTIVE Iggy [facility]24 [facility] ESCITALOPRA M OXALATE 20MG TAB TAKE ONE TABLET BY MOUTH EVERY MORNING FOR MAJOR DEPRESSI VE DISORDER ORAL ACTIVE 07/07/2025 [id number] Iggy [facility]IU 2024 90 [facility] [place] FUROSEMIDE 20MG TAB TAKE ONE TABLET BY MOUTH ONCE DAILY ORAL ACTIVE Iggy CHIUELYJaswinder 2024 [facility] METOPROLOL SUCCINATE 50MG TAB,SA TAKE ONE TABLET BY MOUTH ONCE DAILY ORAL ACTIVE Iggy CHIU 2024 [facility] NORTRIPTYLI NE HCL 25MG CAP TAKE ONE CAPSULE BY MOUTH AT BEDTIME HEADACHE ORAL ACTIVE 07/08/2025 [id number] GARRY ROCHA 2024 90 [facility] NORTRIPTYLI NE HCL 25MG CAP TAKE ONE CAPSULE BY MOUTH AT BEDTIME HEADACHE ORAL DISCONT INUED 05/23/2024 [id number] GARRY ROCHA 2022 90 [facility] SACUBITRIL 24MG/VALSAR CRUZ 26MG TAB TAKE ONE TABLET BY MOUTH TWICE DAILY ORAL ACTIVE Iggy CHIU 2024 [facility] SERTRALINE HCL 50MG TAB TAKE ONE-HALF TABLET BY MOUTH EVERY MORNING FOR 3 DAYS, THEN TAKE ONE TABLET EVERY MORNING FOR DEPRESSI ON ORAL DISCONT INUED BY PROVIDE R 06/04/2024 [id number] Iggy CHIU 2023 29 [facility] SUMATRIPTAN SUCCINATE 100MG TAB TAKE ONE TABLET BY MOUTH DIRECTED FOR MIGRAINE HEADACHE AT ONSET OF HEADACHE ; MAY REPEAT IN 2 HOURS IF FIRST DOSE IS NOT EFFECTIV E ORAL ACTIVE 07/08/2025 [id number] 5 GARRY ROCHA 2024 18 [facility] SUMATRIPTAN SUCCINATE 100MG TAB TAKE ONE TABLET BY MOUTH DIRECTED FOR MIGRAINE HEADACHE AT ONSET OF HEADACHE ; MAY REPEAT IN 2 HOURS IF FIRST DOSE IS NOT EFFECTIV E ORAL DISCONT INUED 05/23/2024 [id number] 4 GARRY ROCHA 2022 18 [facility] TRAZODONE HCL 100MG TAB TAKE ONE TABLET BY MOUTH AT BEDTIME FOR INSOMNIA ASSOCIAT ED WITH DEPRESSI ON ORAL ACTIVE 07/07/2025 [id number] Iggy CHIU 2024 90 [facility] TRAZODONE HCL 100MG TAB TAKE ONE TABLET BY MOUTH AT BEDTIME AND TAKE ONE TABLET AT BEDTIME NEEDED FOR INSOMNIA ORAL DISCONT INUED BY PROVIDE R 05/26/2025 [id number] 4 Iggy CHIU 2023 60 [facility] Immunizations Combined list of available immunizations from the Department of Defense and [facility] facilities. Immunization Series Date Given Administered By Site Reaction Lot Number CVX Code Drug Veneer Cutter Status Comments Source COVID-19 (MODERNA), MRNA, LNP-S, PF, 50 MCG/0.5 ML (AGES 12+ YEARS) 2023 ZACANDIDOCESAR BLESSING LEFT DELTO ID [id number] complet ed Booster for Series, [facility] ZOSTER RECOMBINANT 2023 ZANVETTOR,CESAR BLESSING RIGHT DELTO ID [id number] 187 complet ed Completed Series, [facility] TDAP 2023 ZANVETTOR,CESAR BLESSING LEFT DELTO ID [id number] 115 complet ed ADMIN[facility]E [facility] ZOSTER RECOMBINANT 2023 ZANVETTOR,CESAR BLESSING RIGHT DELTO ID [id number] 187 complet ed Partially Complete Series, [facility]E [facility] INFLUENZA, INJECTABLE, QUADRIVALENT, PRESERVATIVE FREE 2022 ZACANDIDOCESAR BLESSING LEFT DELTO ID [id number] 150 complet ed [facility] INFLUENZA, UNSPECIFIED FORMULATION 2021 88 complet ed HISTORICA L INFORMATI ON - FROM PATIENT'S RECALL, Vet record [facility] FLU,3 YRS (HISTORICAL) 2015 88 complet ed [facility] FLU,3 YRS (HISTORICAL) 2012 88 complet ed [...] Reference Range Date Interpretation Specimen Comments Source THYROID T4 FREE(FT4) THYROXINE (T4) FREE [MASS/VOLUM E] IN SERUM OR PLASMA 0.90 ng/dL 0.6 - 1.6 08/26 Specimen Type: SERUM No comment entered. Ordering Provider: ROBERTO CHRISTIANSEN Report Released Date/Time: Jun 25, 2023 08:42 AM Reporting Lab: [facility] [address] [facility] [address] Performing Lab: [facility] [address] [address] [facility] FOLATE FOLATE [MASS/VOLUM E] IN SERUM OR PLASMA 11.13 ng/mL 5.2 08/26 Specimen Type: SERUM No comment entered. Ordering Provider: ROBERTO CHRISTIANSEN Report Released Date/Time: Jun 25, 2023 08:42 AM Reporting Lab: [facility] [address] [facility] [address] Performing Lab: [facility] [address] [facility] [address] [facility] VITAMIN B12 COBALAMIN (VITAMIN B12) [MASS/VOLUM E] IN SERUM OR PLASMA 469 pg/mL 200 - 900 08/26 Specimen Type: SERUM No comment entered. Ordering Provider: ROBERTO CHRISTIANSEN Report Released Date/Time: Jun 25, 2023 08:42 AM Reporting Lab: [facility] [address] [facility] [address] Performing Lab: [facility] [address] [facility] [address] [facility] CBC LEUKOCYTES [#/VOLUME] IN BLOOD BY AUTOMATED COUNT 5.18 10*3/u L 4.50 - 11.00 08/26 Specimen Type: BLOOD No comment entered. Ordering Provider: ROBERTO CHRISTIANSEN Report Released Date/Time: Jun 25, 2023 08:42 AM Reporting Lab: [facility] [address] [facility] [address] Performing Lab: [facility] [place] [facility] [address] [facility] [address] [facility] CBC ERYTHROCYTE S [#/VOLUME] IN BLOOD BY AUTOMATED COUNT 5.10 10*6/u L 4.23 - 5.66 08/26 Specimen Type: BLOOD No comment entered. Ordering Provider: ROBERTO CHRISTIANSEN Report Released Date/Time: Jun 25, 2023 08:42 AM Reporting Lab: [facility] [place] [facility] [address] [facility] [address] Performing Lab: [facility] [place] [facility] [address] [facility] [address] [facility] [place] CBC HEMOGLOBIN [MASS/VOLUM E] IN BLOOD 14.3 g/dL 12.8 - 17 08/26 Specimen Type: BLOOD No comment entered. Ordering Provider: ROBERTO CHRISTIANSEN Report Released Date/Time: Jun 25, 2023 08:42 AM Reporting Lab: [facility] [place] [facility] [address] [facility] [address] Performing Lab: [facility] [place] [facility] [address] [facility] [address] [facility] CBC HEMATOCRIT [VOLUME FRACTION] OF BLOOD BY AUTOMATED COUNT 43.5 39.2 - 50.4 08/26 Specimen Type: BLOOD No comment entered. Ordering Provider: ROBERTO CHRISTIANSEN Report Released Date/Time: Jun 25, 2023 08:42 AM Reporting Lab: [facility] [place] [facility] [address] [facility] [address] Performing Lab: [facility] [place] [facility] [address] [facility] [address] [facility] [place] [facility] CBC MCV [ENTITIC VOLUME] BY AUTOMATED COUNT 85.3 fL 82 - 99 08/26 Specimen Type: BLOOD No comment entered. Ordering Provider: ROBERTO CHRISTIANSEN Report Released Date/Time: Jun 25, 2023 08:42 AM Reporting Lab: [facility] [place] [facility] [address] [facility] [address] Performing Lab: [facility] [place] [facility] [address] [facility] [address] [facility] [place] [facility] CBC MCHC [MASS/VOLUM E] BY AUTOMATED COUNT 32.9 g/dL 30.8 - 35.1 08/26 Specimen Type: BLOOD No comment entered. Ordering Provider: ROBERTO CHRISTIANSEN Report Released Date/Time: Jun 25, 2023 08:42 AM Reporting Lab: [facility] [place] [facility] [address] [facility] [address] Performing Lab: [facility] [place] [facility] [address] [facility] [address] [facility] [place] [facility] CBC PLATELETS [#/VOLUME] IN BLOOD BY AUTOMATED COUNT 179 10*3/u L 140 - 360 08/26 Specimen Type: BLOOD No comment entered. Ordering Provider: ROBERTO CHRISTIANSEN Report Released Date/Time: Jun 25, 2023 08:42 AM Reporting Lab: [facility] [place] [facility] [address] [facility] [address] Performing Lab: [facility] [place] [facility] [address] [facility] [address] [facility] [place] [facility] CBC ERYTHROCYTE DISTRIBUTIO N WIDTH [RATIO] BY AUTOMATED COUNT 12.8 12.0 - 16.0 08/26 Specimen Type: BLOOD No comment entered. Ordering Provider: ROBERTO CHRISTIANSEN Report Released Date/Time: Jun 25, 2023 08:42 AM Reporting Lab: [facility] [place] [facility] [address] [facility] [address] Performing Lab: [facility] [place] [facility] [address] [facility] [address] [facility] [place] [facility] CBC MCH [ENTITIC MASS] BY AUTOMATED COUNT 28.0 pg 26.2 - 32.6 08/26 Specimen Type: BLOOD No comment entered. Ordering Provider: ROBERTO CHRISTIANSEN Report Released Date/Time: Jun 25, 2023 08:42 AM Reporting Lab: [facility] [place] [facility] [address] [facility] [address] Performing Lab: [facility] [place] [facility] [address] [facility] [address] [facility] [place] [facility] VITAMIN D (25-OH) 25-HYDROXYV ITAMIN D3 [MASS/VOLUM E] IN SERUM OR PLASMA 16 ng/mL 20 - 50 08/26 L Specimen Type: SERUM No comment entered. Ordering Provider: ROBERTO CHRISTIANSEN Report Released Date/Time: Jun 25, 2023 08:42 AM Reporting Lab: [facility] [place] [facility] [address] [facility] [address] Performing Lab: [facility] [place] [facility] [address] [facility] [address] [facility] [place] [facility] MAGNESIUM MAGNESIUM [MASS/VOLUM E] IN SERUM OR PLASMA 2.0 mg/dL 1.6 - 2.6 08/26 Specimen Type: SERUM No comment entered. Ordering Provider: ROBERTO CHRISTIANSEN Report Released Date/Time: Jun 25, 2023 08:42 AM Reporting Lab: [facility] [place] [address] [address] Performing Lab: [facility] [address] [address] [facility] [place] [facility] HEMOGLOBI N A1C PANEL HEMOGLOBIN [...] Jun 25, 2023 08:42 AM Reporting Lab: [facility] [address] [address] Performing Lab: [facility] [address] [facility] TSH THYROTROPIN [UNITS/VOLU ME] IN SERUM OR PLASMA 1.38 u[IU]/ mL 0.35 - 5.00 08/26 Specimen Type: SERUM No comment entered. Ordering Provider: ROBERTO CHRISTIANSEN Report Released Date/Time: Jun 25, 2023 08:42 AM Reporting Lab: [facility] [place] [address] [address] Performing Lab: [facility] [address] [address] [facility] [place] [facility] PSA PROSTATE SPECIFIC AG [MASS/VOLUM E] IN SERUM OR PLASMA 1.35 ng/mL 0.00 - 4.00 08/26 Specimen Type: SERUM No comment entered. Ordering Provider: ROBERTO CHRISTIANSEN Report Released Date/Time: Jun 25, 2023 08:42 AM Reporting Lab: [facility] [place] [facility] [address] [facility] [address] Performing Lab: [facility] [place] [facility] [address] [facility] [address] [facility] [place] [facility] BASIC METABOLIC PANEL (fasting) UREA NITROGEN [MASS/VOLUM E] IN SERUM OR PLASMA 15 mg/dL 7 - 25 08/26 Specimen Type: SERUM No comment entered. Ordering Provider: ROBERTO CHRISTIANSEN Report Released Date/Time: Jun 25, 2023 08:42 AM Reporting Lab: [facility] [place] [facility] [address] [facility] [address] Performing Lab: [facility] [place] [facility] [address] [facility] [address] [facility] [place] [facility] BASIC METABOLIC PANEL (fasting) GLUCOSE [MASS/VOLUM E] IN SERUM OR PLASMA 95 mg/dL 65 - 100 08/26 Specimen Type: SERUM No comment entered. Ordering Provider: ROBERTO CHRISTIANSEN Report Released Date/Time: Jun 25, 2023 08:42 AM Reporting Lab: [facility] [place] [facility] [address] [facility] [address] Performing Lab: [facility] [place] [facility] [address] [facility] [address] [facility] [place] [facility] BASIC METABOLIC PANEL (fasting) SODIUM [MOLES/VOLU ME] IN SERUM OR PLASMA 142 mmol/L 135 - 145 08/26 Specimen Type: SERUM No comment entered. Ordering Provider: ROBERTO CHRISTIANSEN Report Released Date/Time: Jun 25, 2023 08:42 AM Reporting Lab: [facility] [place] [facility] [address] [facility] [address] Performing Lab: [facility] [place] [facility] [address] [facility] [address] [facility] [place] [facility] BASIC METABOLIC PANEL (fasting) POTASSIUM [MOLES/VOLU ME] IN SERUM OR PLASMA 4.3 mmol/L 3.5 - 5.0 08/26 Specimen Type: SERUM No comment entered. Ordering Provider: ROBERTO CHRISTIANSEN Report Released Date/Time: Jun 25, 2023 08:42 AM Reporting Lab: [facility] [place] [address] [address] Performing Lab: [facility] [address] [facility] BASIC METABOLIC PANEL (fasting) CHLORIDE [MOLES/VOLU ME] IN SERUM OR PLASMA 107 mmol/L 100 - 110 08/26 Specimen Type: SERUM No comment entered. Ordering Provider: ROBERTO CHRISTIANSEN Report Released Date/Time: Jun 25, 2023 08:42 AM Reporting Lab: [facility] [address] [address] Performing Lab: [facility] [address] [facility]N [facility] BASIC METABOLIC PANEL (fasting) CARBON DIOXIDE, TOTAL [MOLES/VOLU ME] IN SERUM OR PLASMA 25 meq/L 20 - 30 08/26 Specimen Type: SERUM No comment entered. Ordering Provider: ROBERTO CHRISTIANSEN Report Released Date/Time: Jun 25, 2023 08:42 AM Reporting Lab: [facility] [address] Performing Lab: [facility] [address] [address] [facility] BASIC METABOLIC PANEL (fasting) CREATININE [MASS/VOLUM E] IN SERUM OR PLASMA 0.68 mg/dL 0.50 - 1.40 08/26 Specimen Type: SERUM No comment entered. Ordering Provider: ROBERTO CHRISTIANSEN Report Released Date/Time: Jun 25, 2023 08:42 AM Reporting Lab: [facility] [address] Performing Lab: [facility] [address] [facility] [place] [facility] BASIC METABOLIC PANEL (fasting) GLOMERULAR FILTRATION RATE/1.73 SQ M.PREDICTED [VOLUME RATE/AREA] IN SERUM, PLASMA OR BLOOD BY CREATININE- BASED FORMULA (CKD-EPI 2020) >90mL/ min 60 08/26 Specimen Type: SERUM No comment entered. Ordering Provider: ROBERTO CHRISTIANSEN Report Released Date/Time: Jun 25, 2023 08:42 AM Reporting Lab: [facility] [place] [facility] [address] [facility] [address] Performing Lab: [facility] [place] [facility] [address] [facility] [address] [facility] [place] [facility] Vital Signs Combined list of inpatient and outpatient Vital Signs from Department of Defense and Veterans Affairs, ranging from 12 months to all on record, depending upon the facility. Vital Sign Value Date Comments Source SYSTOLIC BLOOD PRESSURE 135 12/02/19 24 15:14:21 [facility] [place] [facility] DIASTOLIC BLOOD PRESSURE 89 12/01/ 024 15:14:21 [facility] [place] [facility] PULSE OXIMETRY 96 12/02/2023 15:14:21 [facility] [place] [facility] WEIGHT 386 12/02/2023 15:14:21 [facility] [place] [facility] BMI 52 kg/m2 12/02/2023 15:14:21 [facility] [place] [facility] PAIN 2 12/02/2023 15:14:21 [facility] [place] [facility] HEIGHT 72 12/02/2023 15:14:21 [facility] [place] [facility] TEMPERATURE 97.6 12/02/2023 15:14:21 [facility] PULSE 93 12/02/2023 15:14:21 [facility] RESPIRATION 20 12/02/2023 15:14:21 [facility] [place] [facility] Encounters Combined list of: 1) Encounters from Department of Veterans Affairs facilities going backup to the last 18 months, not all [place] inpatient encounters are included; 2) Encounters from the Department of Defense facilities going backup to 280 months. Location Location Details Encounter Type Encounter Number Reason For Visit Attending Provider ADM Date DC Date Status Disposition Source [facility] En[facility] [id number] 04[facility]24 [facility] Outpatient Encounter [id number] DORIS OSBORNE 04/24 [facility] [place] Outpatient Encounter [id number] 04/26 [facility] [place] [facility] [facility] OFF/OP CONSLTJ NEW/[place] 55 [id number] Diagnos is: ICD-10- CM G43.019 Migrain e w/o aura, intract able, without status migrain osus GARRY ROCHA 05/23 [place] [facility] [place] [facility] Outpatient Encounter [id number] 05/23 [facility] Outpatient [facility]counter [id number] 06/13 [facility] [place] [facility] [facility] OFFICE O/P EST MOD 30 MIN [id number] Diagnos is: ICD-10- CM I10 Essenti al (primar y) hyperte nsion Carmen CHRISTIANSEN 06/25 [facility] PSYCH DIAGNOSTIC EVALUATION [id number] Diagnos is: ICD-10- CM H93.19 Tinnitu s, unspeci fied ear Tyrell TAPIA 07/01 [facility] MTMS BY PHARM ADDL 15 MIN [id number] Diagnos is: ICD-10- CM E66.9 Obesity , unspeci fied GDULA,JANETH A 07/09 [facility] MTMS BY PHARM EST 15 MIN [id number] Diagnos is: ICD-10- CM E66.9 Obesity , unspeci fied GDULA,JANETH A 07/30 [facility] Out[facility]counter [id number] 08/07 [facility] En[facility] [id number] 08/12 [facility] OFFICE O/P EST MOD 30 MIN [id number] Diagnos is: ICD-10- CM G43.019 Migrain e w/o aura, intract able, without status migrain GARRY Jeronimo 08/21 [facility] En[facility] [id number] 08/21 [facility] PSYTX W PT 60 MINUTES [id number] Diagnos is: ICD-10- CM H93.19 Tinnitu s, unspeci fied ear BLAYNE ALVES 08/21 [facility] En[facility] [id number] 08/29 [facility] PSYTX W PT 45 MINUTES [id number] Diagnos is: ICD-10- CM H93.19 Tinnitu s, unspeci fied ear BLAYNE ALVES 09/05 [facility] En[facility] [id number] 09/05 [facility] [facility] PSYTX W PT 45 MINUTES [id number] Diagnos is: ICD-10- CM F51.01 Primary insomni a RASTA COVARRUBIAS 09/18 [facility] Outpatient Encounter [id number] 09/24 [facility] PSYTX W PT 45 MINUTES [id number] Diagnos is: ICD-10- CM F50.81 Binge eating disorde r BLAYNE ALVES 10/03 [facility] PSYTX W PT 45 MINUTES [id number] Diagnos is: ICD-10- CM F50.81 Binge eating disorde BLAYNE Chavez 10/17 [facility] OFFICE O/P EST MOD 30 MIN [id number] Diagnos is: ICD-10- CM G43.019 Migrain e w/o aura, intract able, without status migrain GARRY Jeronimo 10/29 [facility] Out[facility] Encounter [id number] 10/29 [facility] PSYTX W PT 45 MINUTES [id number] Diagnos is: ICD-10- CM H93.19 Tinnitu s, unspeci fied ear ALISON TRAN 10/31 [facility] PSYTX W PT 45 MINUTES [id number] Diagnos is: ICD-10- CM F50.81 Binge eating disorde r ALISON TRAN 11/14 [facility] Outpatient Encounter [id number] NIKIADORIS GRAVES 11/20 [facility] PSYTX W PT 45 MINUTES [id number] Diagnos is: ICD-10- CM F50.81 Binge eating disorde r ALISON TRAN 11/27 [facility] OFFICE O/P EST LOW 20 MIN [id number] Diagnos is: ICD-10- CM I10 Essenti al (primar y) hyperte Carmen Abbott 12/01 [facility] PSYTX W PT 45 MINUTES [id number] Diagnos is: ICD-10- CM F50.81 Binge eating disorde r ALISON TRAN 12/19 [facility] Out[facility] Encounter [id number] 01/02 [facility] PSYTX W PT 45 MINUTES [id number] Diagnos is: ICD-10- CM H93.19 Tinnitu s, unspeci fied ear ALISON TRAN 01/16 [facility] PSYTX W PT 45 MINUTES [id number] Diagnos is: ICD-10- CM F51.01 Primary insomni a ALISON TRAN 01/30 [facility] Out[facility] Encounter [id number] 02/10 [facility] Out[facility] Encounter [id number] 02/10 [facility] PSYTX W PT 45 MINUTES [id number] Diagnos is: ICD-10- CM F51.01 Primary insomni a ALISON TRAN 02/27 [facility] Out[facility] Encounter [id number] [facility] OFF/OP EST OCTOBER X REQ PHY/QHP [id number] Diagnos is: ICD-10- CM Z23 Encount er for immuniz ation DORIS OSBORNE 03/09 [facility] PSYTX W PT 45 MINUTES [id number] Diagnos is: ICD-10- CM F41.1 General ized anxiety disorde JUAN ALBERTO Gill 03/13 [facility] Out[facility] Encounter [id number] 1. Diagnos is: ICD-10- CM Z02.89 Encount er for other adminis trative examina tions FAMILIA JENKINS 03/24 [facility] PSYTX W PT 45 MINUTES [id number] Diagnos is: ICD-10- CM H93.19 Tinnitu s, unspeci fied ear MARCIRASTA PARKER 03/27 [facility] EST MOD 30 MIN [id number] Diagnos is: ICD-10- CM G43.019 Migrain e w/o aura, intract able, without status migrain osus GARRY ROCHA 03/31 [place] [facility] Outpatient Encounter [id number] 1.03/31 [facility] PSYTX W PT W E/M 30 MIN [id number] 1. Diagnos is: ICD-10- CM F51.01 Primary insomni a Sydnie BEDOYA 04/01 [facility] Outpatient Encounter [id number] 04/08 [facility] PSYTX W PT 45 MINUTES [id number] 1. Diagnos is: ICD-10- CM E66.9 Obesity , unspeci fied ALISON TRAN 04/24 [facility] Outpatient Encounter [id number] [facility] PSYCH DIAG EVAL W/MED SRVCS [id number] Diagnos is: ICD-10- CM F33.1 Major depress suzanne disorde r, recurre nt, MILLY Serrano 05/04 [facility] [place] [place] [facility] PSYTX W PT 45 MINUTES [id number] Diagnos is: ICD-10- CM F33.1 Major depress suzanne disorde r, recurre nt, jaunitaat ALISON Hughes 05/15 [facility] [place] [place] [facility] OFFICE O/P EST SF 10 MIN [id number] Diagnos is: ICD-10- CM F33.1 Major depress suzanne disorde r, recurre nt, carolyn e MILLY CHIU 05/25 [facility] [place] [place] PSYTX W PT 45 MINUTES [id number] Diagnos is: ICD-10- CM F33.1 Major depress suzanne disorde r, recurre nt, ALISON Tay 06/12 [facility] [place] [place] PSYTX W PT 45 MINUTES [id number] Diagnos is: ICD-10- CM F51.01 Primary insomni ALISON Spangler 06/26 [facility] OFFICE O/P EST LOW 20 MIN [id number] Diagnos is: ICD-10- CM F33.1 Major depress suzanne disorde r, recurre nt, MILLY Serrano 07/06 [facility] [place] [place] Outpatient Encounter [id number] 07/07 [facility] A[facility]IO-VIDE O EST MOD 30 [id number] Diagnos is: ICD-10- CM G43.019 Migrain e w/o aura, intract able, without status migrain osus GARRY ROCHA 07/07 [place] [facility] Outpatient Encounter [id number] 07/07 [facility] Outpatient Encounter [id number] 07/09 [facility] PSYTX W PT 45 MINUTES [id number] Diagnos is: ICD-10- CM F51.01 Primary insomni a ALISON TRAN 07/17 [facility] [place] [place] Outpatient Encounter [id number] Diagnos is: ICD-10- CM Z02.89 Encount er for other adminis trative examina tiFAMILIA Velazquez 07/30 [facility] PSYTX W PT 45 MINUTES [id number] Diagnos is: ICD-10- CM F33.1 Major depress suzanne disorde r, recurre nt, moderat e ALISON TRAN 08/07 [facility] Outpatient Encounter [id number] 08/21 [facility] PSYTX W PT 45 MINUTES [id number] Diagnos is: ICD-10- CM F33.1 Major depress suzanne disorde r, recurre nt, moderat e ALISON TRAN 09/04 [facility] PSYTX W PT 45 MINUTES [id number] Diagnos is: ICD-10- CM F51.01 Primary insomni a ALISON TRAN 09/18 [facility] Social History Combined list of 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 facilities. Social History Type Response Date Comment Source Tobacco smoking status NHIS MS-TOBACCO FORMER USER 04/01/2024 [facility] of [facility] 04/[facility]/2024 [facility] 01/09/2023 [facility] History of tobacco use LIFETIME NON-[facility]BACCO [facility]ER [facility] History of tobacco use QUIT TOBACCO USE > 7 YEARS AGO 12/26/2015 [facility] History of tobacco use HISTORY OF SMOKING 10/27/2003 Smoke free 6 years [facility] History of tobacco use HISTORY OF SMOKING 01/02/2002 [employer] History of tobacco use HISTORY OF SMOKING 01/14/2001 non smoker 4 years [facility] Plan of Care List of future care activities from Department of [facility] facilities. Additional future care activities may be listed in the Assessment and Plan section. Date/Time Care Activity Care Activity Detail Facili ty 10/02/2024 AMBULATORY - PSYCHIATRY AMBULATORY - PSYC HIATRY [facility]
--- OUTSIDE RECORDS SUMMARY | 2024-09-22 16:21 | XMS_ITS | Encounter Summary ---
Author Name [facility] [place] [facility] [place] Address [address] [place] [address] Care Team Providers Care French Polisher Name Role Phone DELIA CHRISTIANSEN Primary Care Provider Unavaila tempe [facility] Insurance Providers: All historical and current [...] Name Patient's Relationship to Policy Garner [facility] CE ORGANIZAT ION [facility] Apr 03, 2012 [phone] DIANE RASCON [facility] CE ORGANIZAT ION HEALT H [facility] [place] Dec 02, 2023 [id number] [phone] ANTONIETA RASCON NATURAL CHILD OPTUM RX PRESCRIPT ION HNE O Dec 02, 2023 [facility] [id number] [phone] ANTONIETA RASCON NATURAL CHILD Selected Encounter [...] activities for the patient [facility] all [place] [facility] This section includes future appointments [...] 17, 2024 02:00 PM AMBULATORY - PS[place]CHIATRY [place] [facility] [place] [facility] Jul 30, 2024 03:00 PM AMBULATORY - MEDICINE [place] [facility] [place] [place] [facility] Aug 07, 2024 02:00 PM AMBULATORY - PSYCHIATRY [facility] [place] [facility] Sep 04, 2024 02:00 PM AMBULATORY - PSYCHIATRY [facility] [place] [facility] Sep 18, 2024 02:00 PM AMBULATORY - PSYCHIATRY [facility] [place] [facility] October 02, 2024 02:00 PM AMBULATORY - PSYCHIATRY [facility] [place] [facility] October 05, 2024 11:00 AM AMBULATORY - PSYCHIATRY [facility] [place] [facility] October 05, 2024 03:30 PM AMBULATORY - NONE [facility] [place] [facility] Dec 14, 2024 03:30 PM AMBULATORY - MEDICINE [place] [facility] [place] [place] [facility] Social History: Smoking Status (Most current) [...] took place. Date/Time Current Smoking Status Comment [facility] Apr 01, 2024 08:30 AM [facility]-TOBACCO [facility] Tobacco Use History This section includes a history of the smoking, or tobacco-related health factors, that were collected on or before the date of the Encounter. The data comes from the [place] facility where the Encounter took place. Date/Time Smoking Status/Tobac co Use Comment Facility Apr 01, 2024 08:30 AM [place]-TOBACCO QUIT 15 YRS OR MORE [facility] Jan 09, 2023 05:09 PM [place]-TOBACCO FORMER USER [facility] Jan 09, 2023 05:09 PM [place]-TOBACCO QUIT 15 YRS OR MORE [facility] Jan 04, 2017 07:42 AM LIFETIME NON-TOBACCO USER [facility] Dec 26, 2015 09:20 AM QUIT TOBACCO USE > 7 YEARS AGO quit in 1997 [facility] October 27, 2003 03:29 PM HISTORY OF SMOKING Smoke free 6 years [facility] Jan 02, 2002 08:56 AM HISTORY OF SMOKING [facility] Jan 02, 2002 08:56 AM QUIT TOBACCO USE > 7 YEARS AGO [facility] Jan 14, 2001 11:25 AM HISTORY OF SMOKING non smoker 4 years [facility] Encounter Notes: All associated encounter notes This section contains the clinical notes associated to the Encounter. Date/Time Encounter Note(s) Provider Source Jul 07, 2024 01:24 PM NEUROLOGY OUTPATIE NT NOTE: LOCAL TITLE: NEUROLOGY CLINIC NOTE STANDARD TITLE: NEUROLOGY OUTPATIENT NOTE DATE OF NOTE: JUL 07, 2024@13:24 ENTRY DATE: JUL 07, 2024@13:24:36 AUTHOR: GARRY ROCHA EXP COSIGNER: URGENCY: STATUS: COMPLETED Tele-Headache Progress Note The consented to telehealth services. Patient address and safety in case of emergency were confirmed. Patient's phone number and Emergency Contact phone number were confurmed In Attendence:1) [place] 2)Provider CC:Headache Last Visit: Impression: 1-Migraines, states [...] needed 4-RTC 3 months Interval History: -states Jun 08-, diagnosed with congestive heart failure - headaches [...] depression 2. Exposure to potentially hazardous substance ([facility] [id number]) 3. Binge eating behaviour 4. Insomnia 5. Anxiety 6. HTN - Hypertension ([facility] [id number]) 7. Sleep apnea 8. Tinnitus 9. Cluster headache (SNOMED CT 736107915) 10. Calculus of Kidney 11. Chronic sinusitis 12. Obesity (SNOMED CT 491224238) Current Medication List: Active Outpatient Medications (including [...] depression 2. Exposure to potentially hazardous substance ([facility] [id number]) 3. Binge eating behaviour 4. Insomnia 5. Anxiety 6. HTN - Hypertension ([facility] [id number]) 7. Sleep apnea 8. Tinnitus 9. Cluster headache (SNOMED CT 519515722) 10. Calculus of Kidney 11. Chronic sinusitis 12. Obesity (SNOMED CT 965568728) Active Outpatient Medications (including Supplies): Active Outpatient [...] Found /blair/ Garry Rocha MD, MPH [id number] [facility] TelePain Lead Signed: 07/07/2024 13:52 GARRY ROCHA [facility]
--- OUTSIDE RECORDS SUMMARY | 2024-09-22 16:21 | XMS_ITS | Encounter Summary ---
Author Name [facility] of [facility] [place] Organization [facility] [place] Address [address] [place] [address] Care Team Providers Care Electro Winning Operator Name Role Phone DELIA CHRISTIANSEN Primary [...] Garner's Name Patient's Relationship to Policy Garner [facility] CE ORGANIZAT ION [facility] Apr 03, 2012 [id number] DIANE RASCON [facility] ORGANIZAT ION HEALT H [facility] ND Dec 02, 2023 [id number] [phone] ANTONIETA RASCON NATURAL CHILD OPTUM RX PRESCRIPT ION HNE O Dec 02, 2023 [facility] [id number] [phone] ANTONIETA RASCON NATURAL CHILD Selected Encounter This section includes the information on record at MD for the Encounter. Date/Time Encounter Type Encounter Description Reason Provider Source Apr 01, 2024 08:30 AM PSYTX W PT W E/M 30 [facility] ICD-10-CM F51.01 Primary insomnia LIUDMILA BEDOYAE Encounter Template Text not used by VA Assessments - Encounter Diagnoses This section includes the primary and secondary diagnoses documented for the Encounter. Date/Time Primary/Secondary Diagnosis Diagnosis Name Provider Source Apr 02, 2024 09:51 PM PRIMARY Primary insomnia LIUDMILA BEDOYA [facility] [place] [facility] Apr 02, 2024 09:51 PM SECONDARY Depression, unspecified LIUDMILA BEDOYA [facility] [place] [facility] Apr 02, 2024 09:51 PM SECONDARY Generalized anxiety disorder LIUDMILA BEDOYA [place] [facility] [place] [facility] Plan of Treatment: Future Appointments (+ 6 months) and Future Tests (+/- 45 days) The Plan of Treatment section includes future care activities for the patient from all MD treatmentfacilities. This section includes future appointments and [...] AMBULATORY - PSYCHIATRY [facility] [place] [facility] May 04, 2024 03:00 PM AMBULATORY - PSYCHIATRY [facility] [place] [facility] May 15, 2024 02:00 PM AMBULATORY - PSYCHIATRY [facility] [place] [facility] May 25, 2024 03:00 PM AMBULATORY - PSYCHIATRY [facility] [place] [facility] Jun 12, 2024 02:00 PM AMBULATORY - PSYCHIATRY [facility] [place] [facility] Jun 26, 2024 02:00 PM AMBULATORY - PSYCHIATRY [facility] [place] [facility] Jul 06, 2024 11:30 AM AMBULATORY - PSYCHIATRY [facility] [place] [facility] Jul 07, 2024 01:30 PM AMBULATORY - NEUROLOGY [facility] [place] [facility] Jul 07, 2024 01:30 PM AMBULATORY - NEUROLOGY [facility] Jul 17, 2024 02:00 PM AMBULATORY - PSYCHIATRY [facility] [place] [facility] Jul 30, 2024 03:00 PM AMBULATORY - MEDICINE [facility] [place] [facility] Aug 07, 2024 02:00 PM [facility] Sep 04, 2024 02:00 PM [facility] Sep 18, 2024 02:00 PM [facility] Active, Pending, and Scheduled Orders This section includes a listing of several types of active, pending, and scheduled orders, including clinic medications orders, diagnostic test orders, procedure orders and consult orders; where the start date of the order is 45 days before the date of the Encounter or 45 days after the date of theEncounter. The data comes from all MD treatment facilities. Test Date/Time Test Type Test Details Facility Name Apr 07, 2024 10:17 AM Consult Order COMMUNITY CARE-OPTOMETRY ROUTINE EYE EXAM Cons Mainframe Programmer Analyst's Choice [facility] Social History: Smoking Status (Most current) and Tobacco Use (All prior to encounter date) This section includes the most current, and the historical, smoking and tobacco- related health factors from the MD facility where the Encounter took place. Current Smoking Status This section includes the most current smoking, or tobacco-related health factor, from the [place] facility where the Encounter took place. Date/Time Current Smoking Status Comment Facil it Apr 01, 2024 08:30 AM VA-TOBACCO FORMER USER [facility] Tobacco Use History This section includes a history of the smoking, or tobacco-related health factors, that were collected on or before the date of the Encounter. The data comes from the [place] facility where the Encounter took place. Date/Time Smoking Status/Tobac co Use Comment Facility Apr 01, 2024 08:30 AM VA-TOBACCO QUIT 15 YRS OR MORE [facility] Jan 09, 2023 05:09 PM [facility]-TOBACCO [facility] Jan 09, 2023 05:09 PM VA-TOBACCO QUIT 15 YRS OR MORE [facility] Jan 04, 2017 07:42 AM LIFETIME NON-TOBACCO USER [facility] Dec 26, 2015 09:20 AM QUIT TOBACCO USE > 7 YEARS AGO quit in 1997 [facility] October 27, 2003 03:29 PM HISTORY OF SMOKING Smoke free 6 years [facility] Jan 02, 2002 08:56 AM HISTORY OF SMOKING [facility] Jan 02, 2002 08:56 AM QUIT TOBACCO USE > 7 YEARS AGO [facility] Jan 14, 2001 11:25 AM HISTORY OF SMOKING non smoker 4 years [facility] Encounter Notes: All associated encounter [...] seen for scheduled Medication Management visit at [facility] for Dx: depression, insomnia, anxiety. Identifiers used: , full SSN, states full name. Visit was for 60minutes. Active problems - Computerized Problem List is the source for the followin. Exposure to potentially hazardous substance ([facility] [id number]) 2. Binge eating behaviour 3. Insomnia 4. Anxiety 5. Depression 6. HTN - Hypertension (SCT 75754073) 7. Sleep apnea 8. Tinnitus 9. Cluster headache (SNOMED CT 708966034) 10. Calculus of Kidney 11. Chronic sinusitis 12. Obesity (SNOMED CT 722067822) CHART REVIEW: is a patient of Dr. [...] spent 10-15 years dealing with denial. The [place] reported experiencing increasing anxiety and depression since [...] STRENGTHS: able to advocate for himself : [employer] FROM Apr TO October SUBJECTIVE: The [place] was seen today for consideration of medication management; visit lasted for 60 full minutes. 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 [place] now appears (x)stable psychiatrically ()unstable psychiatrically i. [...] today and Vet expressed understanding Next Visit: realizes that his case is complex with [...] this [facility] (local) and dispensed from another MD or [facility] facility (remote) as well as inpatient orders [...] NURSE SPECIALIST Signed: 04/02/2024 21:56 FLACA BEDOYA [facility]
--- OUTSIDE RECORDS SUMMARY | 2024-09-22 16:21 | XMS_ITS ---
Author Name Department of Vetera Affairs ([place]) Organization Department of Veter[place] Affairs [place] Address [address] [place] [address] Care Team Providers Care Hvac Operations Technician Name Role Phone DELIA CHRISTIANSEN Primary Care [...] Garner's Name Patient's Relationship to Policy Garner [facility] CE ORGANIZAT ION [facility] Apr 03, 2012 [id number] [phone] DIANE RASCON [facility] ORGANIZAT ION HEALT H [facility] [place] Dec 02, 2023 [id number] [phone] ANTONIETA RASCON CHILD OPTUM RX PRESCRIPT ION HNE O Dec 02, 2023 [facility] [id number] [phone] ANTONIETA RASCON NATURAL CHILD Selected Encounter [...] activities for the patient from all [facility]. This section includes future appointments and [...] PSYCHIATRY [facility] [place] [facility] May 25, 2024 03:00 PM AMBULATORY - PSYCHIATRY [facility] [place] [facility] Jun 12, 2024 02:00 PM AMBULATORY - PSYCHIATRY [facility] [place] [facility] Jun 26, 2024 02:00 PM AMBULATORY - PSYCHIATRY [facility] [place] [facility] Jul 06, 2024 11:30 AM AMBULATORY - PSYCHIATRY [facility] [place] [facility] Jul 07, 2024 01:30 PM AMBULATORY - NEUROLOGY [facility] [place] [facility] Jul 07, 2024 01:30 PM AMBULATORY - NEUROLOGY [facility] Jul 17, 2024 02:00 PM AMBULATORY - PSYCHIATRY [facility] [place] [facility] Jul 30, 2024 03:00 PM AMBULATORY - MEDICINE [facility] [place] [place] [facility] Aug 07, 2024 02:00 PM AMBULATORY - PSYCHIATRY [facility] [place] [facility] Sep 04, 2024 02:00 PM AMBULATORY - PSYCHIATRY [facility] [place] [facility] Sep 18, 2024 02:00 PM AMBULATORY - PSYCHIATRY [facility] [place] [facility] October 02, 2024 02:00 PM AMBULATORY - PSYCHIATRY [facility] [place] [facility] October 05, 2024 11:00 AM AMBULATORY - PSYCHIATRY [facility] [place] [facility] October 05, 2024 03:30 PM AMBULATORY - NONE [facility] [place] [facility] Active, Pending, and Scheduled Orders [...] Order COMMUNITY CARE-OPTOMETRY ROUTINE EYE EXAM Cons Electronic Field Service [facility] Social History: Smoking Status (Most current) [...] 2024 08:30 AM VA-TOBACCO [facility] Tobacco Use History This section includes a history of the smoking, or tobacco-related health factors, that were collected on or before the date of the Encounter. The data comes from the MD facility where the Encounter took place. Date/Time Smoking Status/Tobac co Use Comment Facility Apr 01, 2024 08:30 AM VA-TOBACCO QUIT 15 YRS OR [facility] Jan 09, 2023 05:09 PM VA-TOBACCO FORMER USER [facility] Jan 09, 2023 05:09 PM VA-TOBACCO QUIT 15 YRS OR MORE [place] [facility] Jan 04, 2017 07:42 AM LIFETIME NON-TOBACCO USER [facility] [place] [facility] Dec 26, 2015 09:20 AM QUIT TOBACCO USE > 7 YEARS AGO quit in 1997 [facility] [place] [facility] October 27, 2003 03:29 PM HISTORY OF SMOKING Smoke free 6 years [facility] [place] [facility] Jan 02, 2002 08:56 AM [facility] Jan 02, 2002 08:56 AM QUIT TOBACCO USE > 7 YEARS AGO [place] [facility] Jan 14, 2001 11:25 AM HISTORY OF SMOKING non smoker 4 years [facility]
--- OUTSIDE RECORDS SUMMARY | 2024-09-22 16:21 | XMS_ITS ---
Author Name Department [place] Address [address] [place] [address] Care Team Providers Care Orthodontic Lab Technician Name Role Phone DELIA CHRISTIANSEN Primary [...] Patient's Relationship to Policy Garner [facility] CE ORGANIZAT ION [facility] Apr 03, 2012 [id number] [phone] DIANE RASCON [facility] ORGANIZAT ION HEALT H [facility] ND Dec 02, 2023 [id number] [phone] ANTONIETA RASCON CHILD OPTUM RX PRESCRIPT ION HNE O Dec 02, 2023 [facility] [id number] [phone] ANTONIETA RASCON NATURAL CHILD Selected Encounter [...] patient from all [facility]. This section includes future appointments [...] AMBULATORY - PSYCHIATRY [facility] [place] [facility] Jan 31, 2024 02:00 PM AMBULATORY - PSYCHIATRY [facility] [facility] Feb 11, 2024 02:30 PM AMBULATORY - NEUROLOGY [facility] [place] [facility] Feb 28, 2024 02:00 PM AMBULATORY - PSYCHIATRY [facility] [place] [facility] Mar 09, 2024 03:30 PM AMBULATORY - MEDICINE [facility] [place] [facility] Mar 13, 2024 02:00 PM AMBULATORY - PSYCHIATRY [facility] [place] [facility] Mar 24, 2024 11:00 AM AMBULATORY - MEDICINE [facility] [place] [facility] Mar 27, 2024 02:00 PM AMBULATORY - PSYCHIATRY [facility] [facility] Mar 31, 2024 02:30 PM AMBULATORY - NEUROLOGY [facility] [place] [facility] Mar 31, 2024 02:30 PM AMBULATORY - NEUROLOGY [facility] Apr 01, 2024 08:30 AM AMBULATORY - PSYCHIATRY [facility] [place] [facility] Apr 24, 2024 02:00 PM AMBULATORY - PSYCHIATRY [facility] [facility] May 04, 2024 03:00 PM AMBULATORY - PSYCHIATRY [facility] [place] [facility] May 15, 2024 02:00 PM AMBULATORY - PSYCHIATRY [facility] [place] [facility] May 25, 2024 03:00 PM AMBULATORY - PSYCHIATRY [facility] [facility] Jun 12, 2024 02:00 PM AMBULATORY - PSYCHIATRY [facility] [facility] Jun 26, 2024 02:00 PM AMBULATORY - PSYCHIATRY [facility] [place] [facility] Social History: Smoking Status (Most current) and [...] PM VA-TOBACCO QUIT 15 YRS OR MORE [facility] [...] his appt. was cancelled. /blair/ LEO CAMEJO CONSIGNEE Signed: 01/03/2024 15:34 LEO CAMEJO [facility]
--- OUTSIDE RECORDS SUMMARY | 2024-09-22 16:21 | XMS_ITS ---
Author Name Department of Veter[place] Affairs [place] Organization [place] Address [address] [place] [address] Care Team Providers Care Tree Cutter Name Role Phone DELIA CHRISTIANSEN Primary Care Provider [facility] Insurance Providers: All historical and current Section [...] Name Patient's Relationship to Policy Garner [facility] CE ORGANIZAT ION [employer] [facility] [employer] Apr 03, 2012 [id number] [phone] DIANE RASCON [facility] ORGANIZAT ION HEALT H [facility] [place] Dec 02, 2023 [id number] [phone] WILDA RASCON NATURAL CHILD OPTUM RX PRESCRIPT ION HNE O Dec 02, 2023 [facility] [id number] [phone] WILDA RASCON NATURAL CHILD Selected Encounter This section includes the information on record at [place] for the Encounter. Date/Time Encounter Type Encounter Description Reason Provider Source Jul 17, 2024 02:00 PM PSYTX W PT 45 MINUTES [facility] - IND ICD-10-CM F51.01 Primary insomnia TARIQ TRAN [facility] Encounter Template Text not used by VA Assessments - Encounter Diagnoses This section includes the primary and secondary diagnoses documented for the Encounter. Date/Time Primary/Secondary Diagnosis Diagnosis Name Provider Source Jul 17, 2024 04:08 PM PRIMARY Primary insomnia KARSTEN FRANCIS [place] [facility] [place] [facility] Jul 17, 2024 04:08 PM SECONDARY Major depressive disorder, recurrent, moderate [facility] [place] [facility] Plan of Treatment: Future Appointments (+ 6 months) and Future Tests (+/- 45 days) The Plan of Treatment section includes future care activities for the patient from all [place] [facility]. This section includes future appointments and future [...] 30, 2024 03:00 PM AMBULATORY - MEDICINE [place] [facility] [place] [facility] Aug 07, 2024 02:00 PM AMBULATORY - PSYCHIATRY [place] [facility] [place] [facility] Sep 04, 2024 02:00 PM AMBULATORY - PSYCHIATRY [place] [facility] [place] [facility] Sep 18, 2024 02:00 PM AMBULATORY - PSYCHIATRY [place] [facility] [place] [facility] October 02, 2024 02:00 PM AMBULATORY - PSYCHIATRY [place] [facility] [place] [facility] October 05, 2024 11:00 AM AMBULATORY - PSYCHIATRY [place] [facility] [place] [facility] October 05, 2024 03:30 PM AMBULATORY - NONE [place] [facility] [place] [facility] Dec 14, 2024 03:30 PM AMBULATORY - MEDICINE [place] C [facility] [place] [facility] Social History: Smoking Status [...] 01, 2024 08:30 AM VA-TOBACCO FORMER USER [facility] Tobacco Use History This section includes a history of the smoking, or tobacco-related health factors, that were collected on or before the date of the Encounter. The data comes from the [place] facility where the Encounter took place. Date/Time Smoking Status/Tobac co Use Comment Facility Apr 01, 2024 08:30 AM VA-TOBACCO QUIT 15 YRS OR MORE [facility] Jan 09, 2023 05:09 PM [facility]ACCO [facility] Jan 09, 2023 05:09 PM VA-TOBACCO QUIT 15 YRS OR MORE [facility] Jan 04, 2017 07:42 AM LIFETIME NON-TOBACCO USER [facility] Dec 26, 2015 09:20 AM QUIT TOBACCO USE > 7 YEARS AGO quit in 1997 [facility] October 27, 2003 03:29 PM HISTORY OF SMOKING Smoke free 6 years [facility] Jan 02, 2002 08:56 AM [facility] Jan 02, 2002 08:56 AM QUIT TOBACCO USE > 7 YEARS AGO [facility] Jan 14, 2001 11:25 AM HISTORY OF SMOKING non smoker 4 years [facility] Encounter Notes: All associated encounter notes This section contains the clinical notes associated to the Encounter. Date/Time Encounter Note(s) Provider Source Jul 17, 2024 03:59 PM TELEHEALTH NOTE: LOCAL TITLE: [place] VIDEO CONNECT PSYCHOLOGY NOTE STANDARD TITLE: TELEHEALTH NOTE DATE OF NOTE: JUL 17, 2024@15:59 ENTRY DATE: JUL 17, 2024@15:59:52 AUTHOR: KARSTEN FRANCIS COSIGNER: TARIQ TRAN URGENCY: STATUS: COMPLETED [place] VIDEO CONNECT PSYCHOLOGY NOTE Has ADDENDA This [...] of depression, anxiety and insomnia. DATA: The [place] shared that while he was feeling physically [...] walks). We reflected on the things the [place] used to enjoy, and idenitified that social interaction was a big element that has changed. We spent time processing the theraputic relationship and the [place] level of openness and vulnerability with the provider. The provier offered feedback on the importance of attending to interpersonal factors in therapy help support relational functions in the rest of his life. ASSESSMENT: The [place] was on time to the appointment and was fully engaged. Grooming and dress were WNL. Gross motor function was WNL. Mood was euthymic and affect was congruent. Speech was normal in rate, tone and prosody. Insight and judgement were intact. There was no evidence of A/VH or thought disorder. denied current SI and endorsed feeling more hopeful at present. No SI/HI. PLAN: [place] will RTC for individual psychotherapy on 08/07/2024 with provider, Dr. Karsten Francis. [place] [employer] ([facility]) Standard Documentation [facility] Clinician Resources Only: E911 (Emergency Call Relay Center): [phone] [facility] Crisis Line - 988 then press #1. [facility] Suicide Coordinator [phone], Ext. [phone]; Back-up Ext. [phone] [place] Police, [place] [phone] Introduction: Visit is being conducted by [employer]. [place] identified with 2 identifiers: [X] Full Name [ ] Date of [ ] VA ID Card [X] Visual Recognition Emergency Plan: confirmed and/or provided the following information in case of emergency or technology failure. PATIENT PHONE - PHONE NUMBER [CELLULAR] - Is patient phone number correct, if not, enter below: 's phone number: DIANE RASCON [address], [place], [address] 's present location and address for appointment: [address] [address] [place]'s emergency contact name and phone number: Wilda Rascon reported that location is private and safe: Yes Informed Consent: [place] informed of the risks and benefits of Telehealth video care. [place] has the right to refuse video services. If refuses video visit, a rylx-jz-piha visit will be scheduled. verbalized consent for this video visit: Yes [place] provided consent for any other persons present for visit: N/A If yes, who and relationship to patient: Secure visit: Visit was locked for security and privacy:Yes /blair/ KARSTEN FRANCIS, PHD [facility] Post-Doctoral Psychology Trainee Signed: 07/17/2024 16:08 /blair/ TARIQ TRAN PSYD PSYCHOLOGIST Cosigned: 07/17/2024 16:55 07/17/2024 ADDENDUM STATUS: COMPLETED I have reviewed this case and concur with the clinical impressions and recommendations made by this trainee who is under my clinical supervision. /blair/ TARIQ TRAN PSYD PSYCHOLOGIST Signed: 07/17/2024 16:56 KARSTEN FRANCIS CNTL WSTRN [facility]
--- OUTSIDE RECORDS SUMMARY | 2024-09-22 16:21 | XMS_ITS | Encounter Summary ---
Author Name Department of Veter[place] Affairs [place] Organization [place] Address [address] [place] [address] Care Team Providers Care Miller Kiln Dried Salt Name Role Phone DELIA CHRISTIANSEN Primary Care Provider [facility] Insurance Providers: All historical and current [...] Garner's Name Patient's Relationship to Policy Garner [facility] CE ORGANIZAT ION [facility] Apr 03, 2012 [id number] [phone] DIANE RASCON [facility] ORGANIZAT ION HEALT H [facility] [place] Dec 02, 2023 [id number] [phone] WILDA RASCON NATURAL CHILD OPTUM RX PRESCRIPT ION HNE O Dec 02, 2023 [facility] [id number] [phone] WILDA RASCON NATURAL CHILD Selected Encounter This section includes the information on record at [place] for the Encounter. Date/Time Encounter Type Encounter Description Reason Provider Source Sep 18, 2024 02:00 PM PSYTX W PT 45 MINUTES [facility] - IND ICD-10-CM F51.01 Primary insomnia TARIQ TRAN [facility] Encounter Template Text not used by VA Assessments - Encounter Diagnoses This section includes the primary and secondary diagnoses documented for the Encounter. Date/Time Primary/Secondary Diagnosis Diagnosis Name Provider Source Sep 18, 2024 04:07 PM PRIMARY Primary insomnia [facility] Sep 18, 2024 04:07 PM SECONDARY Generalized anxiety disorder DELILAH FRANCIS [facility] Sep 18, 2024 04:07 PM SECONDARY Major depressive disorder, recurrent, moderate DELILAH FRANCIS [facility] Plan of Treatment: Future Appointments (+ 6 months) and Future Tests (+/- 45 days) The Plan of Treatment section includes future care activities for the patient from all [place] [facility]. This section includes future appointments and future orders which are active, pending or scheduled. Future Appointments This section includes appointments that were scheduled to occur 6 months from the date of the Encounter, up to a maximum of 20 appointments. The data comes from all [place] treatment facilities. Appointment Date/Time Appointment Type Appointme nt Facility Name October 02, 2024 02:00 PM [facility] October 05, 2024 11:00 AM [facility] October 05, 2024 03:30 PM AMBULATORY - NONE [place] [facility] Dec 14, 2024 03:30 PM AMBULATORY - MEDICINE [place] [facility] Social History: Smoking Status (Most current) and [...] took place. Date/Time Current Smoking Status Comment [facility] it Apr 01, 2024 08:30 AM VA-TOBACCO [facility]ER [facility] Tobacco Use History This section includes a history of the smoking, or tobacco-related health factors, that were collected on or before the date of the Encounter. The data comes from the [place] facility where the Encounter took place. Date/Time Smoking Status/Tobac co Use Comment Facility Apr 01, 2024 08:30 AM VA-TOBACCO QUIT 15 YRS OR MORE [facility] Jan 09, 2023 05:09 PM VA-TOBACCO [facility] Jan 09, 2023 05:09 PM VA-TOBACCO QUIT 15 YRS OR MORE [facility] Jan 04, 2017 07:42 AM LIFETIME NON-TOBACCO USER [facility] Dec 26, 2015 09:20 AM QUIT TOBACCO USE > 7 YEARS AGO quit in 1997 [facility] October 27, 2003 03:29 PM HISTORY OF SMOKING Smoke free 6 years [facility] Jan 02, 2002 08:56 AM HISTORY OF SMOKING [facility] Jan 02, 2002 08:56 AM QUIT TOBACCO USE > 7 YEARS AGO [facility] Jan 14, 2001 11:25 AM HISTORY OF SMOKING non smoker 4 years [facility] Encounter Notes: All associated encounter notes This section contains the clinical notes associated to the Encounter. Date/Time Encounter Note(s) Provider Source Sep 18, 2024 02:55 PM TELEHEALTH NOTE: LOCAL TITLE: [place] VIDEO CONNECT PSYCHOLOGY NOTE STANDARD TITLE: TELEHEALTH NOTE DATE OF NOTE: SEP 18, 2024@14:55 ENTRY DATE: SEP 18, 2024@14:55:34 AUTHOR: DELILAH FRANCIS COSIGNER: TARIQ TRAN URGENCY: STATUS: COMPLETED This case is supervised by Dr. Tariq [...] of depression, anxiety and insomnia. DATA: The [place] shared that he found a loophole that allowed him to graduate from his cardiac rehab program in 12 weeks instead of more than 30. He said that he felt good about not having the stress of going there any more, and worrying about people watching him. We reviewed his plans to engage in independent exercise. We spent the majority of our session doing a cost benefit analysis of social avoidance as a tool for managing anxiety. We identified that while there has been some benefits to getting periods of respite from anxiety, anxiety has not generally gotten better over the past number of years. Through the course of our conversation the a sense of lacking purpose. We oriented to the problem of not having a why for engaging in behavior changes, and agreed to continue working on exploring this together. ASSESSMENT: The was on time to the appointment and was fully engaged. Grooming and dress were WNL. Gross motor function was WNL. Mood was euthymic and affect was congruent. Speech was normal in rate, tone and prosody. Insight and judgement were intact. There was no evidence of A/VH or thought disorder. No SI/HI. PLAN: will RTC for individual psychotherapy on 10/02/2024 with provider, Dr. eDlilah Francis. [place] [employer] ([facility]) Standard Documentation [facility] Clinician Resources Only: E911 (Emergency Call Relay Center): [phone] [facility] Crisis Line - 988 then press #1. [facility] Suicide Coordinator [phone], Ext. [phone]; Back-up Ext. [phone] [place] Police, [place] [phone] Introduction: Visit is being conducted by [place] [employer]. [place] identified with 2 identifiers: [X] Full Name [ ] Date of [ ] VA ID Card [X] Visual Recognition Emergency Plan: [place] confirmed and/or provided the following information in case of emergency or technology failure. PATIENT PHONE - PHONE NUMBER [CELLULAR] - Is patient phone number correct, if not, enter below: [place]'s phone number: DIANE M TARAH [address], [place], [address] 's present location and address for appointment: [address] [address] [place]'s emergency contact name and phone number: Wilda Tarah reported that location is private and safe: Yes Informed Consent: informed of the risks and benefits of Telehealth video care. has the right to refuse video services. If refuses video visit, a [id number]-lg-wweq visit will be scheduled. verbalized consent for this video visit: Yes provided consent for any other persons present for visit: N/A If yes, who and relationship to patient: Secure visit: Visit was locked for security and privacy: Yes /blair/ DELILAH FRANCIS, PHD [facility] Post-Doctoral Psychology Trainee Signed: 09/18/2024 16:06 /blair/ TARIQ TRAN PSYD PSYCHOLOGIST Cosigned: 09/18/2024 17:27 DELILAH FRANCIS [facility]
--- OUTSIDE RECORDS SUMMARY | 2024-09-22 16:21 | XMS_ITS | Encounter Summary ---
Author Name Department of Veter[facility] [place] Affairs ([place]) Organization Department of Veter[place] Affairs ([place]) Address [address] [place] [address] Care Team Providers Care Glue Size Machine Operator Name Role Phone DELIA CHRISTIANSEN Primary Care Provider [facility] Insurance Providers: All historical and current Section Date Range: From patient's date of to the date document was created. This section includes the names of all active insurance providers for the patient. Insurance Provider Type of Coverage Plan Name Start of Policy Coverage End of Policy Coverage Group Number Member ID Insurance Provider's Telephone Number Policy Garner's Name Patient's Relationship to Policy Garner [facility] CE ORGANIZAT ION [facility] Apr 03, 2012 [id number] DIANE RASCON [facility] ORGANIZAT ION HEALT H [facility] [place] Dec 02, 2023 [id number] WILDA RASCON NATURAL CHILD OPTUM RX PRESCRIPT ION HNE O Dec 02, 2023 [facility] [id number] [phone] WILDA RASCON NATURAL CHILD Selected Encounter This section includes the information on record at ID for the Encounter. Date/Time Encounter Type Encounter Description Reason Provider Source Jun 26, 2024 02:00 PM PSYTX W PT 45 MINUTES [facility] - IND ICD-10-CM F51.01 Primary insomnia TARIQ TRAN [facility] Encounter Template Text not used by VA Assessments - Encounter Diagnoses This section includes the primary and secondary diagnoses documented for the Encounter. Date/Time Primary/Secondary Diagnosis Diagnosis Name Provider Source Jun 26, 2024 04:17 PM PRIMARY Primary insomnia KARSTEN FRANCIS [place] [facility] [facility] Jun 26, 2024 04:17 PM SECONDARY Generalized anxiety disorder KARSTEN FRANCIS [place] [facility] [facility] Jun 26, 2024 04:17 PM SECONDARY Major depressive disorder, recurrent, moderate KARSTEN FRANCIS [place] [facility] [facility] Jun 26, 2024 04:17 PM SECONDARY Obesity, unspecified KARSTEN FRANCIS [place] [facility] [facility] Plan of Treatment: Future Appointments (+ 6 months) and Future Tests (+/- 45 days) The Plan of Treatment section includes future care activities for the patient from all ID treatmentfacilities. This section includes future appointments and future orders which are active, pending or scheduled. Future Appointments This section includes appointments that were scheduled to occur 6 months from the date of the Encounter, up to a maximum of 20 appointments. The data comes from all ID treatment facilities. Appointment Date/Time Appointment Type Appointme nt Facility Name Jul 06, 2024 11:30 AM AMBULATORY - PSYCHIATRY [facility] [place] [facility] Jul 07, 2024 01:30 PM AMBULATORY - NEUROLOGY [place] [facility] [facility] Jul 07, 2024 01:30 PM AMBULATORY - NEUROLOGY [facility] Jul 17, 2024 02:00 PM AMBULATORY - PSYCHIATRY [facility] [facility] Jul 30, 2024 03:00 PM AMBULATORY - MEDICINE [facility] [facility] Aug 07, 2024 02:00 PM AMBULATORY - PSYCHIATRY [facility] [facility] Sep 04, 2024 02:00 PM AMBULATORY - PSYCHIATRY [facility] [facility] Sep 18, 2024 02:00 PM AMBULATORY - PSYCHIATRY [facility] [facility] October 02, 2024 02:00 PM AMBULATORY - PSYCHIATRY [facility] [facility] October 05, 2024 11:00 AM AMBULATORY - PSYCHIATRY [place] [facility] [facility] October 05, 2024 03:30 PM [facility] - NONE [facility] Dec 14, 2024 03:30 PM AMBULATORY - MEDIC[facility] Social History: Smoking Status (Most current) and Tobacco Use (All prior to encounter date) This section includes the most current, and the historical, smoking and tobacco- related health factors from the ID facility where the Encounter took place. Current Smoking Status This section includes the most current smoking, or tobacco-related health factor, from the ID facility where the Encounter took place. Date/Time Current Smoking Status Comment Facil it Apr 01, 2024 08:30 AM VA-TOBACCO [facility] Tobacco Use History This section includes a history of the smoking, or tobacco-related health factors, that were collected on or before the date of the Encounter. The data comes from the ID facility where the Encounter took place. Date/Time Smoking Status/Tobac co Use Comment Facility Apr 01, 2024 08:30 AM VA-TOBACCO QUIT 15 YRS OR MORE ID [facility] [place] [facility] Jan 09, 2023 05:09 PM VA-TOBACCO FORMER USER ID [facility] Jan 09, 2023 05:09 PM VA-TOBACCO QUIT 15 YRS OR MORE ID [facility] Jan 04, 2017 07:42 AM LIFETIME NON-TOBACCO USER [facility] Dec 26, 2015 09:20 AM QUIT TOBACCO USE > 7 YEARS AGO quit in 1997 [facility] October 27, 2003 03:29 PM HISTORY OF SMOKING Smoke free 6 years [facility] [place] [facility] Jan 02, 2002 08:56 AM HISTORY OF SMOKING [facility] Jan 02, 2002 08:56 AM QUIT TOBACCO USE > 7 YEARS AGO [facility] Jan 14, 2001 11:25 AM HISTORY OF SMOKING non smoker 4 years [facility] Encounter Notes: All associated encounter notes This section contains the clinical notes associated to the Encounter. Date/Time Encounter Note(s) Provider Source Jun 26, 2024 04:12 PM TELEHEALTH NOTE: LOCAL TITLE: VA VIDEO [...] anxiety and insomnia. DATA: We processed the Spur's hospital discharge, return to work and his [...] explored the connection to well-being. ASSESSMENT: The was on time to the appointment and was fully engaged. Grooming and dress were WNL. Gross motor function was WNL. Mood was euthymic and affect was congruent. Speech was normal in rate, tone and prosody. Insight and judgement were intact. There was no evidence of A/VH or thought disorder. The [place] reported an increase in thoughts about during his emotional breakdown several weeks ago, but denied ever having suicidal plan or intent. He denied current SI and endorsed feeling more hopeful at present. PLAN: Spur will RTC for individual psychotherapy on 07/10/2024 with provider, Dr. Karsten Francis. ID Video Connect (VVC) Standard Documentation [facility] Clinician Resources Only: E911 (Emergency Call Relay Center): [phone] National Veterans Crisis Line - 988 then press #1. [facility] Suicide Coordinator [phone], Ext. [phone]; Back-up Ext. [phone] ID , Arnold STOKES [phone] Introduction: Visit is being conducted by ID Video Connect. Spur identified with 2 identifiers: [X] Full Name [ ] Date of [ ] VA ID Card [X] Visual Recognition Emergency Plan: confirmed and/or provided the following information in case of emergency or technology failure. PATIENT PHONE - PHONE NUMBER [CELLULAR] - Is patient phone number correct, if not, enter below: 's phone number: DIANE RASCON [address], [place], [address] Spur's present location and address for appointment: [address] [address] 's emergency contact name and phone number: Wilda Rascon reported that location is private and safe: Yes Informed Consent: informed of the risks and benefits of Telehealth video care. has the right to refuse video services. If refuses video visit, a [id number] visit will be scheduled. Spur verbalized consent for this video visit: Yes provided consent for any other persons present for visit: N/A If yes, who and relationship to patient: Secure visit: Visit was locked for security and privacy:Yes /blair/ KARSTEN FRANCIS, PHD [facility] Post-Doctoral Psychology Trainee Signed: 06/26/2024 16:16 /blair/ TARIQ TRAN PSYD PSYCHOLOGIST Cosigned: 06/26/2024 16:18 06/26/2024 ADDENDUM STATUS: COMPLETED I have reviewed this case and concur with the clinical impressions and recommendations made by this trainee who is under my clinical supervision. /blair/ TARIQ TRAN PSYD PSYCHOLOGIST Signed: 06/26/2024 16:18 KARSTEN FRANCIS [facility]
--- OUTSIDE RECORDS SUMMARY | 2024-09-22 16:21 | XMS_ITS ---
Author Name Department of Vetera [place] Affairs ([place]) Organization Department of [place] Address [address] [place] [address] Care Team Providers Care Lay Out Worker Name Role Phone DELIA CHRISTIANSEN Primary Care Provider [facility] Insurance Providers: All historical and current Section Date Range: From patient's date of to the date document was created. This section includes the names of all active insurance providers for the patient. Insurance Provider Type of Coverage Plan Name Start of Policy Coverage End of Policy Coverage Group Number Member ID Insurance Provider's Telephone Number Policy Garner's Name Patient's Relationship to Policy Garner [facility] CE ORGANIZAT ION [facility] Apr 03, 2012 [id number] [phone] DIANE RASCON [facility] CE ORGANIZAT ION HEALT H [facility] Dec 02, 2023 [id number] ANTONIETA RASCON NATURAL CHILD [facility] RX [facility]CRIPT [facility] Dec 02, 2023 [facility] [id number] [phone] ANTONIETA RASCON NATURAL CHILD Selected Encounter This section includes the information on record at PA for the Encounter. Date/Time Encounter Type Encounter Description Reason Provider Source May 25, 2024 03:00 PM OFFICE O/P EST SF 10 MIN [facility] - IND ICD-10-CM F33.1 Major depressive disorder, recurrent, moderate APPLE,SANDHYA DAVE IHE Encounter Template Text not used by PA Assessments - Encounter Diagnoses This section includes the primary and secondary diagnoses documented for the Encounter. Date/Time Primary/Secondary Diagnosis Diagnosis Name Provider Source May 25, 2024 03:31 PM PRIMARY Major depressive disorder, recurrent, moderate SANDHYA CHIU [place] [facility] [place] [facility] May 25, 2024 03:31 PM SECONDARY Generalized anxiety disorder SANDHYA CHIU [place] [facility] [place] [facility] May 25, 2024 03:31 PM SECONDARY Primary insomnia SANDHYA CHIU [place] [facility] [place] [facility] Plan of Treatment: Future Appointments (+ 6 months) and Future Tests (+/- 45 days) The Plan of Treatment section includes future care activities for the patient from all PA treatmentfacilities. This section includes future appointments and future orders which are active, pending or scheduled. Future Appointments This section includes appointments that were scheduled to occur 6 months from the date of the Encounter, up to a maximum of 20 appointments. The data comes from all PA treatment facilities. Appointment Date/Time Appointment Type Appointme nt Facility Name Jun 12, 2024 02:00 PM AMBULATORY - PSYCHIATRY [facility] [place] [facility] Jun 26, 2024 02:00 PM AMBULATORY - PSYCHIATRY [facility] [place] [facility] Jul 06, 2024 11:30 AM AMBULATORY - PSYCHIATRY [facility] [place] [facility] Jul 07, 2024 01:30 PM AMBULATORY - NEUROLOGY [facility] [place] [facility] Jul 07, 2024 01:30 PM AMBULATORY - NEUROLOGY [facility] Jul 17, 2024 02:00 PM AMBULATORY - PSYCHIATRY [facility] [place] [facility] Jul 30, 2024 03:00 PM AMBULATORY - MEDICINE VA C [facility] [place] [facility] Aug 07, 2024 02:00 PM AMBULATORY - PSYCHIATRY [facility] [place] [facility] Sep 04, 2024 02:00 PM AMBULATORY - PSYCHIATRY [facility] [place] [facility] Sep 18, 2024 02:00 PM AMBULATORY - PSYCHIATRY [facility] [place] [facility] October 02, 2024 02:00 PM AMBULATORY - PSYCHIATRY [facility] [place] [facility] October 05, 2024 11:00 AM AMBULATORY - [facility]IATRY [facility] October 05, 2024 03:30 PM AMBULATORY - NONE [facility] Social History: Smoking Status (Most current) and Tobacco Use (All prior to encounter date) This section includes the most current, and the historical, smoking and tobacco- related health factors from the PA facility where the Encounter took place. Current Smoking Status This section includes the most current smoking, or tobacco-related health factor, from the PA facility where the Encounter took place. Date/Time Current Smoking Status Comment Facil it Apr 01, 2024 08:30 AM VA-TOBACCO FORMER USER [facility] Tobacco Use History This section includes a history of the smoking, or tobacco-related health factors, that were collected on or before the date of the Encounter. The data comes from the PA facility where the Encounter took place. Date/Time Smoking Status/Tobac co Use Comment Facility Apr 01, 2024 08:30 AM VA-TOBACCO QUIT 15 YRS OR MORE [facility] Jan 09, 2023 05:09 PM VA-TOBACCO FORMER USER [facility] Jan 09, 2023 05:09 PM VA-TOBACCO QUIT 15 YRS OR MORE [facility] Jan 04, 2017 07:42 AM LIFETIME NON-TOBACCO USER [facility] Dec 26, 2015 09:20 AM QUIT TOBACCO USE > 7 YEARS AGO quit in 1997 [facility] October 27, 2003 03:29 PM HISTORY OF SMOKING Smoke free 6 years [facility] [place] [facility] Jan 02, 2002 08:56 AM HISTORY OF SMOKING [facility] Jan 02, 2002 08:56 AM QUIT TOBACCO USE > 7 YEARS AGO [facility] Jan 14, 2001 11:25 AM HISTORY OF SMOKING non smoker 4 years [facility] Encounter Notes: All associated encounter notes This section contains the clinical notes associated to the Encounter. Date/Time Encounter Note(s) Provider Source May 25, 2024 03:07 PM TELEHEALTH NOTE: LOCAL TITLE: PA VIDEO CONNECT PSYCHIATRIST NOTE STANDARD TITLE: TELEHEALTH NOTE DATE OF NOTE: MAY 25, 2024@15:07 ENTRY DATE: MAY 25, 2024@15:07:36 AUTHOR: VIKTOR CHIU EXP COSIGNER: URGENCY: STATUS: COMPLETED VA VIDEO CONNECT PSYCHIATRIST NOTE Has ADDENDA VA Video Connect ([facility]) Standard Documentation [facility] Clinician Resources Only: E911 (Emergency Call Relay Center): [phone] National Veterans Crisis Line - 988 then press #1. [facility] Suicide Coordinator [phone], Ext. [phone]; Back-up Ext. [phone] [place] Police, CWM, [place] [phone] Introduction: Visit is being conducted by PA LendingStandard Connect. Cole Camp identified with 2 identifiers: [X] Full Name [X] Date of [ ] PA ID Card Emergency Plan: confirmed and/or provided the following information in case of emergency or technology failure. PATIENT PHONE - PHONE NUMBER [CELLULAR] - Is patient phone number correct, if not, enter below: Cole Camp's phone number: DIANE Patel TARAH [address], [place], [address] 's present location and address for appointment: [address] [place] [address] 's emergency contact name and phone number: None given Cole Camp reported that location is private and safe: Yes Informed Consent: informed of the risks and benefits of Telehealth video care. Cole Camp has the right to refuse video services. If refuses video visit, a [id number]-ao-ppwz visit will be scheduled. verbalized consent for this video visit: Yes Cole Camp provided consent for any other persons present for visit: N/A If yes, who and relationship to patient: Secure visit: Visit was locked for security and privacy:Yes DIANE RASCON, a 53 year old WHITE MALE was seen by [facility] today for scheduled mental health follow-up. MENTAL HEALTH NOTE: Cole Camp was seen by [facility] today for 15 min for routine mental [...] Patient is aware of how to access [facility] open access clinic in [facility] during weekdays for immediate mental health [...] in the community (including Crisis Line, 911, [place] National Suicide Prevention Lifeline: 5-920-287-ULWV). Patient is instructed to contact me should [...] denied suicidal and violent ideation, but the [place] Crisis Line information and number were given [...] this VA (local) and dispensed from another [place] or DoD facility (remote) as well as [...] VIKTOR CHIU MD PSYCHIATRIST Signed: 05/25/2024 15:31 06/23/2024 [...] concerns in need of being addressed before then /blair/ ELENI DICK Psychiatric Mental Health Nurse Practitioner Signed: 06/23/2024 16:39 VIKTOR CHIU [facility]L [facility]Jas[facility]inder [facility]
--- OUTSIDE RECORDS SUMMARY | 2024-09-22 16:22 | XMS_ITS ---
Author Name Department [place] Organization [place] Address [address] [place] [address] Care Team Providers Care Blender Snuff Name Role Phone DELIA CHRISTIANSEN Primary Care [...] Garner's Name Patient's Relationship to Policy Garner [facility] CE ORGANIZAT ION [employer] [facility] Apr 03, 2012 [id number] DIANE RASCON [facility] CE ORGANIZAT ION HEALT H [facility] [place] Dec 02, 2023 [id number] [phone] ANTONIETA RASCON NATURAL CHILD OPTUM RX PRESCRIPT ION [facility] O Dec 02, 2023 [facility] [id number] [phone] ANTONIETA RASCON NATURAL CHILD Selected Encounter This section includes the information on record at [place] for the Encounter. Date/Time Encounter Type Encounter Description Reason Pro vider Source October 30, 2023 03:30 PM Outpatient Encounter ADMIN PAT ACTIVTIES (MASNONCT) IHE Encounter Template Text not used by [place] Plan of Treatment: Future Appointments (+ 6 months) and Future Tests (+/- 45 days) The Plan of Treatment section includes future care activities for the patient from all VA treatmentfaour community hospitalities. This section includes future appointments and [...] [place] [facility] Nov 15, 2023 02:00 PM [...] 02:30 PM AMBULATORY - NEUROLOGY [place] [facility] Apr 01, 2024 08:30 AM AMBULATORY - PSYCHIATRY [facility] [place] [facility] Apr 24, 2024 02:00 PM AMBULATORY - PSYCHIATRY [facility] [place] [facility] Social History: Smoking Status (Most [...] took place. Date/Time Current Smoking Status Comment [facility] Jan 09, 2023 05:09 PM VA-TOBACCO FORMER USER [facility] Tobacco Use History This section includes a history of the smoking, or tobacco-related health factors, that were collected on or before the date of the Encounter. The data comes from the [place] facility where the Encounter took place. Date/Time Smoking Status/Tobac co Use Comment Facility Jan 09, 2023 05:09 PM [place]-TOBACCO QUIT 15 YRS OR MORE [facility] Jan 04, 2017 07:42 AM LIFETIME NON-TOBACCO USER [facility] Dec 26, 2015 09:20 AM QUIT TOBACCO USE > 7 YEARS AGO quit in 1997 [facility] October 27, 2003 03:29 PM HISTORY OF SMOKING Smoke free 6 years [facility] Jan 02, 2002 08:56 AM HISTORY OF SMOKING [facility] Jan 02, 2002 08:56 AM QUIT TOBACCO USE > 7 YEARS AGO [facility] Jan 14, 2001 11:25 AM HISTORY OF SMOKING non smoker 4 years [facility] Encounter Notes: All associated encounter notes [...] 4. Depression 5. HTN - Hypertension ([facility] [id number]) 6. Sleep apnea 7. Tinnitus 8. Cluster headache (SNOMED CT [id number]) 9. Calculus of Kidney 10. Chronic sinusitis 11. Obesity (SNOMED CT [id number]) Current Medication List: Active Outpatient Medications (including [...] 4. Depression 5. HTN - Hypertension ([facility] [id number]) 6. Sleep apnea 7. Tinnitus 8. Cluster headache (SNOMED CT [id number]) 9. Calculus of Kidney 10. Chronic sinusitis 11. Obesity (SNOMED CT [id number]) Active Outpatient Medications (including Supplies): Active Outpatient [...] TelePain Lead Signed: 10/30/2023 16:02 GARRY ROCHA [place] CNTRL W[facility]
--- OUTSIDE RECORDS SUMMARY | 2024-09-22 16:22 | XMS_ITS ---
Author Name [facility] [place] [facility] [place] Address [address] [place] [address] Care Team Providers Care Teacher Tutor Name Role Phone DELIA CHRISTIANSEN Primary Care [...] Relationship to Policy Garner [facility] CE ORGANIZAT ION [facility] Apr 03, 2012 [id number] [phone] [id number] [phone] DIANE RASCON [facility] CE ORGANIZAT ION HEALT H [facility] [place] Dec 02, 2023 [id number] [phone] ANTONIETA RASCON NATURAL CHILD OPTUM RX PRESCRIPT ION HNE O Dec 02, 2023 [facility] [phone] ANTONIETA RASCON NATURAL CHILD Selected Encounter This section includes the information on record at [place] for the Encounter. Date/Time Encounter Type Encounter Description Reason Pro vider Source Mar 31, 2024 02:30 PM Outpatient Encounter ADMIN PAT ACTIVTIES (MASNONCT) IHE Encounter Template Text not used by [place] Plan of Treatment: Future Appointments (+ 6 months) and Future Tests (+/- 45 days) The Plan of Treatment section includes future care activities for the patient from all [place] [facility]. This section includes future appointments and [...] AMBULATORY - PS[facility]CHIATRY [facility] [place] [facility] Apr 24, 2024 02:00 PM AMBULATORY - PSYCHIATRY [facility] [place] [facility] May 04, 2024 03:00 PM AMBULATORY - PS[facility]CHIATRY [facility] [place] [facility] May 15, 2024 02:00 PM AMBULATORY - PS[facility]CHIATRY [facility] [place] [facility] May 25, 2024 03:00 PM AMBULATORY - PS[facility]CHIATRY [facility] [place] [facility] Jun 12, 2024 02:00 PM AMBULATORY - PS[facility]CHIATRY [facility] [place] [facility] Jun 26, 2024 02:00 PM AMBULATORY - PS[facility]CHIATRY [facility] [place] [facility] Jul 06, 2024 11:30 AM AMBULATORY - PS[facility]CHIATRY [facility] [place] [facility] Jul 07, 2024 01:30 PM AMBULATORY - NEUROLOGY [facility] [place] [facility] Jul 07, 2024 01:30 PM AMBULATORY - [facility]OLOGY [facility] Jul 17, 2024 02:00 PM AMBULATORY - PSYCHIATRY [facility] [place] [facility] Jul 30, 2024 03:00 PM AMBULATORY - MEDICINE [facility] [place] [facility] Aug 07, 2024 02:00 PM AMBULATORY - PSYCHIATRY [facility] [place] [facility] Sep 04, 2024 02:00 PM AMBULATORY - PSYCHIATRY [facility] [place] [facility] Sep 18, 2024 02:00 PM AMBULATORY - PSYCHIATRY [facility] [place] [facility] Active, Pending, and Scheduled Orders [...] Order COMMUNITY CARE-OPTOMETRY ROUTINE EYE EXAM Cons Shipwright Apprentice's Choice [facility] Social History: Smoking Status (Most current) [...] 09, 2023 05:09 PM VA-TOBACCO FORMER USER [facility] Tobacco Use History This section includes a history of the smoking, or tobacco-related health factors, that were collected on or before the date of the Encounter. The data comes from the [place] facility where the Encounter took place. Date/Time Smoking Status/Tobac co Use Comment Facility Jan 09, 2023 05:09 PM VA-TOBACCO QUIT 15 YRS OR MORE [facility] Jan 04, 2017 07:42 AM LIFETIME NON-TOBACCO USER [facility] Dec 26, 2015 09:20 AM QUIT TOBACCO USE > 7 YEARS AGO quit in 1997 [facility] October 27, 2003 03:29 PM HISTORY OF SMOKING Smoke free 6 years [facility] Jan 02, 2002 08:56 AM HISTORY OF SMOKING [facility] Jan 02, 2002 08:56 AM QUIT TOBACCO USE > 7 YEARS AGO [facility] Jan 14, 2001 11:25 AM HISTORY OF SMOKING non smoker 4 years [facility] Encounter Notes: All associated encounter notes [...] Contact phone number were confurmed In Attendence:1) [place] 2)Provider CC:Headache Last Visit: Impression: 1-Migraines, in [...] the followin. Exposure to potentially hazardous substance ([facility] [id number]) 2. Binge eating behaviour 3. Insomnia 4. Anxiety 5. Depression 6. HTN - Hypertension (SCT 82107099) 7. Sleep apnea 8. Tinnitus 9. Cluster headache (SNOMED CT 971889978) 10. Calculus of Kidney 11. Chronic sinusitis 12. Obesity (SNOMED CT 012318815) Current Medication List: Active Outpatient Medications (including [...] the followin. Exposure to potentially hazardous substance ([facility] [id number]) 2. Binge eating behaviour 3. Insomnia 4. Anxiety 5. Depression 6. HTN - Hypertension ([facility] [id number]) 7. Sleep apnea 8. Tinnitus 9. Cluster headache (SNOMED CT 898453701) 10. Calculus of Kidney 11. Chronic sinusitis 12. Obesity (SNOMED CT 121788173) Active Outpatient Medications (including Supplies): Active Outpatient [...] Found /blair/ Garry Rocha MD, MPH [id number] [facility] TelePain Lead Signed: 04/07/2024 10:16 [facility]
--- OUTSIDE RECORDS SUMMARY | 2024-09-22 16:22 | XMS_ITS | Continuity of Care Document ---
Author Organization [facility] ter Address [address] [place] [id number]- Care Team Providers Care House Shorer Name Role Phone Eunice MINAYA, Luis Daniel Santillan Primary Care Physician Encounter [facility] Date(s): 08/06/24 - 09/21/[address] [address]- Encounter Diagnosis Heart failure, unspecified(Final) - Discharge Disposition: A-D/C Home Attending Physician: Eric Mcguire DO Admitting Physician: Eric Mcguire DO Referring Physician: Delio Bro MD Encounter Type: Disch Recurring OP Allergies, Adverse Reactions, Alerts No Known Allergies [...] influenza virus vaccine, inactivated 05/03/13 Give n [id number] bivalent booster vax 04/06/22 Recorded SARS-CoV-2 (COVID-19) [...] Refills, Maintenance, 06/13/24 9:00:00 AM EST, Tablet, [facility], Partial fill upon patient request [...] oral tablet 20 mg, By Mouth, Daily, take only as needed., # 30 tablet, Refills 0, Tot. Refills 0, Maintenance, 06/13/24 9:00:00 AM EST, Route to Pharmacy Electronically, [facility], Partial fill upon patient request if the prescription is for a schedule II opioid drug., 186, cm, 06/12/24 7:57:00 ES T, Height, 162.3, kg, 06/09/24 13:31:00 EST, Dry Weight Start Date: 06/13/24 Stop Date: 07/13/24 Status: Ordered Quantity: 30.0 Unit: tablet Repeat number: 1 metoprolol 100 mg oral tablet 200 mg, 2, tablet, By Mouth, 2 times a day, # 360 tablet, Refills 0, Tot. Refills 0, Maintenance, 09/15/24 11:45:00 AM EDT, Route to Pharmacy Electronically, [facility], Partial fill upon patient request if the prescription is for a schedule II opioid drug., 186, cm, 09/15/24 11:04:00 EDT, Height, 162.3, kg, 06/09/24 13:31:00 EST, Dry Weight Start Date: 09/15/24 Status: Ordered Quantity: 360.0 Unit: tablet Repeat number: 1 Indication: Heart failure, unspecified sacubitril-valsartan 49 mg-51 mg oral tablet 1 tablet, By Mouth, 2 times a day, # 60 tablet, 0 Refills, Maintenance, 08/04/24 2:51:00 PM EST, [facility], Partial fill [...] 9:00:00 AM EST, Route to Pharmacy Electronically, [facility], Partial fill upon patient request [...] on: 06/12/13 Sex Sex Representation Male (finding) Note * Event Display: Cardiac Rehab Telemetry Report Authored Date: * Event Display: Cardiac Rehab Telemetry Report Authored Date: * Event Display: Cardiac Rehab Telemetry Report Authored Date: Patient Care team information Care Team Personnel Name: Nate RICHARDSON, Amarilys Position: S RN Member Role: Primary Care Nurse Name: Luis Daniel Dawson MD Position: S Physician - Primary Care Member Role: PCP Address: [address] [place] [id number] Telecom: Name: Tay RICHARDSON, Wei Position: S RN Member Role: Primary Care Nurse Care Team Related Persons Name: ELIO MARTINEZ Name: ANTONIETA RASCON Insurance Providers Guarantor name: DIANE RASCON Health Plan Information #: 1 Payer: [facility] [employer] Member Number: [id number] Policy Number: NA Group Number: [id number] Health Plan Information #: 2 Payer: [facility] [employer] Member Number: [id number] Policy Number: NA Group Number: [id number]
--- OUTSIDE RECORDS SUMMARY | 2024-09-22 16:22 | XMS_ITS | Encounter Summary ---
Author Name [facility] [place] [facility] [place] [facility] [place] Address [address] [place] [address] Care Team Providers Care Personal Injury Law Specialist Name Role Phone DELIA CHRISTIANSEN Primary [...] Policy Garner [facility] CE ORGANIZAT ION [facility] Apr 03, 2012 [id number] DIANE RASCON [facility] ORGANIZAT ION HEALT H [facility] Dec 02, 2023 [id number] [phone] WILDA RASCON NATURAL CHILD OPTUM RX PRESCRIPT ION HNE O Dec 02, [address] [facility] [phone] WILDA RASCON NATURAL CHILD Selected Encounter This section includes the information on record at [place] for the Encounter. Date/Time Encounter Type Encounter Description Reason Provider Source Aug 07, 2024 02:00 PM PSYTX W PT 45 MINUTES [facility] ICD-10-CM F33.1 Major depressive disorder, recurrent, moderate TARIQ TRAN [facility] Encounter Template Text not used by [place] Assessments - Encounter Diagnoses This section includes the primary and secondary diagnoses documented for the Encounter. Date/Time Primary/Secondary Diagnosis Diagnosis Name Provider Source Aug 07, 2024 02:57 PM PRIMARY Major depressive disorder, recurrent, moderate PENNYKARSTEN Ziyad [facility] Plan of Treatment: Future Appointments (+ 6 months) and Future Tests (+/- 45 days) The Plan of Treatment section includes future care activities for the patient from all [place] [facility]. This section includes future appointments and future [...] 04, 2024 02:00 PM AMBULATORY - PSYCHIATRY [facility] Sep 18, 2024 02:00 PM [facility] October 02, 2024 02:00 PM [facility] October 05, 2024 11:00 AM AMBULATORY - [facility] October 05, 2024 03:30 PM AMBULATORY - NONE [facility] Dec 14, 2024 03:30 PM [facility] Social History: Smoking Status (Most current) [...] took place. Date/Time Current Smoking Status Comment [facility] it Apr 01, 2024 08:30 AM VA-TOBACCO FORMER USER [facility] Tobacco Use History This section includes a history of the smoking, or tobacco-related health factors, that were collected on or before the date of the Encounter. The data comes from the [place] facility where the Encounter took place. Date/Time Smoking Status/Tobac co Use Comment Facility Apr 01, 2024 08:30 AM VA-TOBACCO QUIT 15 YRS OR MORE [facility] Jan 09, 2023 05:09 PM VA-TOBACCO FORMER USER [facility] Jan 09, 2023 05:09 PM VA-TOBACCO QUIT 15 YRS OR MORE [facility] Jan 04, 2017 07:42 AM LIFETIME NON-TOBACCO USER [facility] Dec 26, 2015 09:20 AM QUIT TOBACCO USE > 7 YEARS AGO quit in 1997 [facility] October 27, 2003 03:29 PM HISTORY OF SMOKING Smoke free 6 years [facility] Jan 02, 2002 08:56 AM HISTORY OF SMOKING [facility] Jan 02, 2002 08:56 AM QUIT TOBACCO USE > 7 YEARS AGO [facility] Jan 14, 2001 11:25 AM HISTORY OF SMOKING non smoker 4 years [facility] Encounter Notes: All associated encounter notes This section contains the clinical notes associated to the Encounter. Date/Time Encounter Note(s) Provider Source Aug 07, 2024 02:03 PM TELEHEALTH NOTE: LOCAL TITLE: [place] VIDEO CONNECT PSYCHOLOGY NOTE STANDARD TITLE: TELEHEALTH NOTE DATE OF NOTE: AUG 07, 2024@14:03 ENTRY DATE: AUG 07, 2024@14:03:49 AUTHOR: KARSTEN FRANCIS COSIGNER: TARIQ TRAN URGENCY: STATUS: COMPLETED [place] VIDEO CONNECT PSYCHOLOGY NOTE Has ADDENDA This [...] reflected in the clinical relationship. ASSESSMENT: The [place] was on time to the appointment and was fully engaged. Grooming and dress were WNL. Gross motor function was WNL. Mood was euthymic and affect was congruent. Speech was normal in rate, tone and prosody. Insight and judgement were intact. There was no evidence of A/VH or thought disorder. denied current SI and endorsed feeling more hopeful at present. No SI/HI. PLAN: [place] will RTC for individual psychotherapy on 08/21/2024 with provider, Dr. Karsten Francis. [place] [email or web address] Connect (VV) Standard Documentation [facility] Clinician Resources Only: E911 (Emergency Call Relay Center): [phone] National Veterans Crisis Line - 9[address] #[address] [facility] Suicide Coordinator [phone], Ext. [phone]; Back-up Ext. [phone] [place] Police, [place]OK[place] [phone] Introduction: Visit is being conducted by [place] [employer]. [place] identified with 2 identifiers: [X] Full Name [ ] Date of [ ] VA ID Card [X] Visual Recognition Emergency Plan: confirmed and/or provided the following information in case of emergency or technology failure. PATIENT PHONE - PHONE NUMBER [CELLULAR] - Is patient phone number correct, if not, enter below: [place]'s phone number: DIANE RASCON [address], [place], [address] 's present location and address for appointment: [address] [address] [place]'s emergency contact name and phone number: Wilda Rascon [place] reported that location is private and safe: Yes Informed Consent: [place] informed of the risks and benefits of Telehealth video care. [place] has the right to refuse video services. If refuses video visit, a [id number] visit will be scheduled. verbalized consent for this video visit: Yes provided consent for any other persons present for visit: N/A If yes, who and relationship to patient: Secure visit: Visit was locked for security and privacy: Yes Suicide Screen: C-SSRS Screening [place]-Suicide Severity Rating Scale (C-SSRS Screener) 1. Over [...] due to responses to other questions. /blair/ KARSTEN FRANCIS, PHD [facility] Post-Doctoral Psychology Trainee Signed: 08/07/2024 14:56 /blair/ TARIQ TRAN PSYD PSYCHOLOGIST Cosigned: 08/07/2024 16:09 08/07/2024 ADDENDUM STATUS: COMPLETED I have reviewed this case and concur with the clinical impressions and recommendations made by this trainee who is under my clinical supervision. /blair/ TARIQ TRAN PSYD PSYCHOLOGIST Signed: 08/07/2024 16:09 KARSTEN FRANCIS [facility]
--- OUTSIDE RECORDS SUMMARY | 2024-09-22 16:22 | XMS_ITS | Patient Health Record ---
[facility] Address [address] [place] [address] Care Team Providers Care Social Worker School Name Role Phone Luis Daniel Dawson MD Primary Care Provider Guido Garcia Unavailable [phone] Allergies Allergen (clinical drug ingredient) Drug/Non Drug [...] Insured Coverage Start Date Coverage End Date [facility] [address] [facility] [place] [id number] Wilda Stoddard Spouse - patient is the spouse of the insured Medical (General) History Medical History History ICD Code chicken pox Surgical History Surgery Date(Month/Year)
--- OUTSIDE RECORDS SUMMARY | 2024-09-22 16:22 | XMS_ITS | Encounter Summary ---
Author Name [facility] [place] Organization [place] Address [address] [place] [address] Care Team Providers Care High Lift Mule Operator Name Role Phone DELIA CHRISTIANSEN Primary Care Provider [facility] Insurance Providers: All historical and current Section Date Range: From patient's date of to the date document was created. This section includes the names of all active insurance providers for the patient. Insurance Provider Type of Coverage Plan Name Start of Policy Coverage End of Policy Coverage Group Number Member ID Insurance Provider's Telephone Number Policy Garner's Name Patient's Relationship to Policy Garner [facility] CE ORGANIZAT ION [facility] Apr 03, 2012 [id number] [phone] DIANE RASCON [facility] ORGANIZAT ION HEALT H [facility] Dec 02, 2023 [id number] WILDA RASCON NATURAL CHILD OPTUM RX PRESCRIPT ION HNE O Dec 02, 2023 [facility] [id number] WILDA RASCON NATURAL CHILD Selected Encounter This section includes the information on record at [place] for the Encounter. Date/Time Encounter Type Encounter Description Reason Provider Source May 15, 2024 02:00 PM PSYTX W PT 45 MINUTES [facility] - IND ICD-10-CM F33.1 Major depressive disorder, recurrent, moderate TARIQ TRAN [facility] Encounter Template Text not used by [place] Assessments - Encounter Diagnoses This section includes the primary and secondary diagnoses documented for the Encounter. Date/Time Primary/Secondary Diagnosis Diagnosis Name Provider Source May 15, 2024 04:00 PM PRIMARY Major depressive disorder, recurrent, moderate KARSTEN FRANCIS [place] [facility] [place] [facility] May 15, 2024 04:00 PM SECONDARY Generalized anxiety disorder KARSTEN FRANCIS [place] [facility] [place] [facility] May 15, 2024 04:00 PM SECONDARY Primary insomnia KARSTEN FRANCIS [place] [facility] [place] [facility] Plan of Treatment: Future Appointments (+ [...] AMBULATORY - PSYCHIATRY [facility] [place] [facility] Jun 12, 2024 02:00 PM AMBULATORY - PSYCHIATRY [facility] [place] [facility] Jun 26, 2024 02:00 PM AMBULATORY - PSYCHIATRY [facility] [place] [facility] Jul 06, 2024 11:30 AM AMBULATORY - PSYCHIATRY [facility] [place] [facility] Jul 07, 2024 01:30 PM AMBULATORY - NEUROLOGY [facility] [place] [facility] Jul 07, 2024 01:30 PM AMBULATORY - NEUROLOGY [facility] Jul 17, 2024 02:00 PM AMBULATORY - PSYCHIATRY [facility] [place] [facility] Jul 30, 2024 03:00 PM AMBULATORY - MEDICINE [facility] [place] [facility] Aug 07, 2024 02:00 PM AMBULATORY - PSYCHIATRY [facility] [place] [facility] Sep 04, 2024 02:00 PM AMBULATORY - PSYCHIATRY [facility] [place] [facility] Sep 18, 2024 02:00 PM AMBULATORY - PSYCHIATRY [facility] [place] [facility] October 02, 2024 02:00 PM [facility] October 05, 2024 11:00 AM AMBUL[facility]IATRY [facility] October 05, 2024 03:30 PM AMBULATORY - NONE [facility] Active, Pending, and Scheduled Orders [...] Order COMMUNITY CARE-OPTOMETRY ROUTINE EYE EXAM Cons Benefits Manager's Choice [facility] Social History: Smoking Status (Most [...] 01, 2024 08:30 AM VA-TOBACCO FORMER USER [facility] Tobacco Use History This section includes a history of the smoking, or tobacco-related health factors, that were collected on or before the date of the Encounter. The data comes from the [place] facility where the Encounter took place. Date/Time Smoking Status/Tobac co Use Comment Facility Apr 01, 2024 08:30 AM VA-TOBACCO QUIT 15 YRS OR MORE [facility] Jan 09, 2023 05:09 PM VA-TOBACCO FOR[facility] USER [facility] Jan 09, 2023 05:09 PM VA-TOBACCO QUIT 15 YRS OR MORE [facility] Jan 04, 2017 07:42 AM LIFETIME NON-TOBACCO USER [facility] Dec 26, 2015 09:20 AM QUIT TOBACCO USE > 7 YEARS AGO quit in 1997 [facility] October 27, 2003 03:29 PM HISTORY OF SMOKING Smoke free 6 years [facility] Jan 02, 2002 08:56 AM HISTORY OF SMOKING [facility] Jan 02, 2002 08:56 AM QUIT TOBACCO USE > 7 YEARS AGO [facility] Jan 14, 2001 11:25 AM HISTORY OF SMOKING non smoker 4 years [facility] Encounter Notes: All associated encounter notes This section contains the clinical notes associated to the Encounter. Date/Time Encounter Note(s) Provider Source May 15, 2024 03:02 PM TELEHEALTH NOTE: LOCAL TITLE: [place] VIDEO CONNECT PSYCHOLOGY NOTE STANDARD TITLE: TELEHEALTH [...] of depression, anxiety and insomnia. DATA: The Diagonal shared that he was at home today with COVID, and had been sick for the past 5 or so days. We reviewed positive impressions of his new proscriber and medication changes. The Diagonal shared that up until he contracted COVID [...] to get some moderate exercise (walking). The Diagonal somewhat interested in persuing this idea. The provider observed that the Diagonal seemed more upbeat than usual despite having COVID, and we processed this together. ASSESSMENT: The was on time [...] on 06/12/2024 with provider, Dr. Karsten Francis. [place] [employer] Connect ([facility]) Standard Documentation [facility] Clinician Resources Only: E911 (Emergency Call Relay Center): [phone] [facility] Crisis Line - 988 then press #1. [facility] Suicide Coordinator [phone], Ext. [phone]; Back-up Ext. [phone] [place] Police, JELLYAmanda, Arnold [phone] Introduction: Visit is being conducted by [place] [employer] Connect. Diagonal identified with 2 identifiers: [X] Full Name [X] Date of [ ] VA ID Card Emergency Plan: confirmed and/or provided the following information in case of emergency or technology failure. PATIENT PHONE - PHONE NUMBER [CELLULAR] - Is patient phone number correct, if not, enter below: Diagonal's phone number: DIANE RASCON [address], [place], [address] 's present location and address for appointment: Home address above. 's emergency contact name and phone number: Wilda Rascon reported that location is private and safe: Yes Informed Consent: informed of the risks and benefits of Telehealth video care. Diagonal has the right to refuse video services. If refuses video visit, a [id number]-[id number]-[id number] visit will be scheduled. Diagonal verbalized consent for this video visit: Yes Diagonal provided consent for any other persons present for visit: N/A If yes, who and relationship to patient: Secure visit: Visit was locked for security and privacy:Yes /blair/ KARSTEN FRANCIS, PHD [facility] Post-Doctoral Psychology Trainee Signed: 05/15/2024 16:00 /blair/ TARIQ TRAN PSYD PSYCHOLOGIST Cosigned: 05/15/2024 16:26 05/15/2024 ADDENDUM STATUS: COMPLETED I have reviewed this case and concur with the clinical impressions and recommendations made by this trainee who is under my clinical supervision. /blair/ TARIQ TRAN PSYD PSYCHOLOGIST Signed: 05/15/2024 16:27 KARSTEN FRANCIS [facility]
--- OUTSIDE RECORDS SUMMARY | 2024-09-22 16:22 | XMS_ITS | Encounter Summary ---
Author Name Department of [place] Organization [place] Address [address] [place] [address] Care Team Providers Care Hand Braille Transcriber Name Role Phone DELIA CHRISTIANSEN Primary Care [...] Garner's Name Patient's Relationship to Policy Garner [facility] CE ORGANIZAT ION [facility] Apr 03, 2012 [id number] DIANE RASCON [facility] CE ORGANIZAT ION HEALT H [facility] Dec 02, 2023 [id number] [phone] ANTONIETA RASCON NATURAL CHILD OPTUM RX PRESCRIPT ION HNE O Dec 02, 2023 [facility] [id number] ANTONIETA RASCON NATURAL CHILD Selected Encounter [...] moderate SANDHYA CHIU [place] [facility] [place] [facility] Jul 07, 2024 01:05 PM SECONDARY Generalized anxiety disorder SANDHYA CHIU [place] [facility] [place] [facility] Jul 07, 2024 01:05 PM SECONDARY Primary insomnia SANDHYA CHIU [place] [facility] [place] [facility] Plan of Treatment: Future Appointments [...] AMBULATORY - NEUROLOGY [facility] [place] [facility] Jul 07, 2024 01:30 PM AMBULATORY - NEUROLOGY [facility] Jul 17, 2024 02:00 PM AMBULATORY - PSYCHIATRY [facility] [place] [facility] Jul 30, 2024 03:00 PM AMBULATORY - MEDICINE [facility] [place] [facility] Aug 07, 2024 02:00 PM AMBULATORY - PSYCHIATRY [facility] [place] [facility] Sep 04, 2024 02:00 PM AMBULATORY - PSYCHIATRY [facility] [place] [facility] Sep 18, 2024 02:00 PM AMBULATORY - PSYCHIATRY [facility] [place] [facility] October 02, 2024 02:00 PM AMBULATORY - PSYCHIATRY [facility] [place] [facility] October 05, 2024 11:00 AM AMBULATORY - PSYCHIATRY [facility] [place] [facility] October 05, 2024 03:30 PM AMBULATORY - NONE [facility] [place] [facility] Dec 14, 2024 03:30 PM AMBULATORY - MEDICINE [facility] [place] [facility] Social History: Smoking Status (Most current) and [...] 01, 2024 08:30 AM VA-TOBACCO FORMER USER [facility] Tobacco Use History This section includes a history of the smoking, or tobacco-related health factors, that were collected on or before the date of the Encounter. The data comes from the [place] facility where the Encounter took place. Date/Time Smoking Status/Tobac co Use Comment Facility Apr 01, 2024 08:30 AM VA-TOBACCO QUIT 15 YRS OR MORE [facility] Jan 09, 2023 05:09 PM [facility]AC[facility] Jan 09, 2023 05:09 PM VA-TOBACCO QUIT 15 YRS OR MORE [place] [facility] [place] [facility] Jan 04, 2017 07:42 AM LIFETIME NON-TOBACCO [facility] Dec 26, 2015 09:20 AM QUIT TOBACCO USE > 7 YEARS AGO quit in 1997 [facility] October 27, 2003 03:29 PM HISTORY OF SMOKING Smoke free 6 years [place] [facility] Jan 02, 2002 08:56 AM HISTORY OF SMOKING [facility] Jan 02, 2002 08:56 AM QUIT TOBACCO USE > 7 YEARS AGO [place] [facility] [place] [facility] Jan 14, 2001 11:25 AM HISTORY OF SMOKING non smoker 4 years [facility] Encounter Notes: All associated encounter notes This section contains the clinical notes associated to the Encounter. Date/Time Encounter Note(s) Provider Source Jul 06, 2024 11:35 AM TELEHEALTH NOTE: LOCAL TITLE: [place] VIDEO CONNECT PSYCHIATRIST NOTE STANDARD TITLE: TELEHEALTH NOTE DATE OF NOTE: JUL 06, 2024@11:35 ENTRY DATE: JUL 06, 2024@11:35:24 AUTHOR: VIKTOR CHIU EXP COSIGNER: URGENCY: STATUS: COMPLETED [place] Video Connect (VV) Standard Documentation [facility] Clinician Resources Only: E911 (Emergency Call Relay Center): [phone] National Veterans Crisis Line - 988 then press #1. [facility] Suicide Coordinator [phone], Ext. [phone]; Back-up Ext. [phone] [place] Police, [place] [phone] Introduction: Visit is being conducted by [place] Video Connect. identified with 2 identifiers: [X] Full Name [X] Date of [ ] VA ID Card Emergency Plan: confirmed and/or provided the following information in case of emergency or technology failure. PATIENT PHONE - PHONE NUMBER [CELLULAR] - Is patient phone number correct, if not, enter below: 's phone number: DIANE RASCON [address], [place], [address] 's present location and address for appointment: [address] [place] [address] 's emergency contact name and phone number: None given today Colrain reported that location is private and safe: Yes Informed Consent: Colrain informed of the risks and benefits of Telehealth video care. has the right to refuse video services. If refuses video visit, a oomw-go-aigu visit will be scheduled. verbalized consent for this video visit: Yes Colrain provided consent for any other persons present for visit: N/A If yes, who and relationship to patient: Secure visit: Visit was locked for security and privacy:Yes DIANE RASCON, a 53 year old WHITE MALE was seen by [facility] for scheduled mental health follow-up. MENTAL HEALTH NOTE: was seen by [facility] for 25 min in the [facility] for routine mental health follow up. Two [...] 1.::: Medication management: Reviewed medications today with Diane. He has continues on lexapro 20 mg [...] Patient is aware of how to access [facility] open access clinic in [facility] during weekdays for immediate mental health [...] Line, 911, [place] National Suicide Prevention Lifeline: 1-840-013-STFH). Patient is instructed to contact me should [...] this VA (local) and dispensed from another [place] or DoD facility (remote) as well as [...] 07/07/2024 13:05 VIKTOR CHIU [place] [facility]
--- OUTSIDE RECORDS SUMMARY | 2024-09-22 16:22 | XMS_ITS | Encounter Summary ---
Author Name Department of Veter[place] Organization [place] Address [address] [place] [address] Care Team Providers Care Popcorn Attendant Name Role Phone DELIA CHRISTIANSEN Primary Care Provider [facility] Insurance Providers: All historical and current Section [...] Name Patient's Relationship to Policy Garner [facility] CE ORGANIZAT ION [facility] Apr 03, 2012 [id number] [phone] DIANE RASCON [facility] ORGANIZAT ION HEALT H [facility] Dec 02, 2023 [id number] WILDA RASCON NATURAL CHILD OPTUM RX PRESCRIPT ION HNE O Dec 02, 2023 [facility] [id number] WILDA RASCON NATURAL CHILD Selected Encounter This section includes the information on record at [place] for the Encounter. Date/Time Encounter Type Encounter Description Reason Provider Source Jun 12, 2024 02:00 PM PSYTX W PT 45 MINUTES [facility] - IND ICD-10-CM F33.1 Major depressive disorder, recurrent, moderate TARIQ TRAN [facility] Encounter Template Text not used by [place] Assessments - Encounter Diagnoses This section includes the primary and secondary diagnoses documented for the Encounter. Date/Time Primary/Secondary Diagnosis Diagnosis Name Provider Source Jun 12, 2024 03:01 PM PRIMARY Major depressive disorder, recurrent, moderate PENNYDELILAH A [place] [facility] [place] [facility] Jun 12, 2024 03:01 PM SECONDARY Generalized anxiety disorder PENNYDELILAH A [place] [facility] [place] [facility] Plan of Treatment: Future Appointments (+ 6 months) and Future Tests (+/- 45 days) The Plan of Treatment section includes future care activities for the patient from all [place] treatmentfacilities. This section includes future appointments and [...] AMBULATORY - PSYCHIATRY [facility] [place] [facility] Jul 06, 2024 11:30 AM AMBULATORY - PSYCHIATRY [facility] [place] [facility] Jul 07, 2024 01:30 PM AMBULATORY - NEUROLOGY [facility] [place] [facility] Jul 07, 2024 01:30 PM AMBULATORY - NEUROLOGY [facility] Jul 17, 2024 02:00 PM AMBULATORY - PSYCHIATRY [facility] [place] [facility] Jul 30, 2024 03:00 PM AMBULATORY - MEDICINE VA C [facility] [place] [facility] Aug 07, 2024 02:00 PM AMBULATORY - PSYCHIATRY [facility] [place] [facility] Sep 04, 2024 02:00 PM AMBULATORY - PSYCHIATRY [facility] [place] [facility] Sep 18, 2024 02:00 PM AMBULATORY - PSYCHIATRY [facility] [place] [facility] October 02, 2024 02:00 PM AMBULATORY - PSYCHIATRY [facility] [place] [facility] October 05, 2024 11:00 AM AMBULATORY - PSYCHIATRY [facility] [place] [facility] October 05, 2024 03:30 PM AMBULATORY - NONE [place] [facility] [place] [facility] Social History: Smoking Status (Most [...] 2024 08:30 AM VA-TOBACCO FORMER USER [facility] Tobacco Use History This section includes a history of the smoking, or tobacco-related health factors, that were collected on or before the date of the Encounter. The data comes from the [place] facility where the Encounter took place. Date/Time Smoking Status/Tobac co Use Comment Facility Apr 01, 2024 08:30 AM [facility]CO [facility]IT [facility]RS [facility] Jan 09, 2023 05:09 PM VA-[facility]BACCO [facility] Jan 09, 2023 05:09 PM VA-TOBACCO QUIT 15 YRS OR MORE [facility] Jan 04, 2017 07:42 AM LIFETIME NON-TOBACCO [facility] Dec 26, 2015 09:20 AM QUIT TOBACCO USE > 7 YEARS AGO quit in 1997 [facility] October 27, 2003 03:29 PM HISTORY OF SMOKING Smoke free 6 years [facility] Jan 02, 2002 08:56 AM H[facility] OF SMOKING [facility] Jan 02, 2002 08:56 AM QUIT TOBACCO USE > 7 YEARS AGO [facility] Jan 14, 2001 11:25 AM HISTORY OF SMOKING non smoker 4 years [facility] Encounter Notes: All associated encounter [...] insomnia. DATA: The shared that he was attending the session from a room at [facility] where he had been for the past 9 or so days due to health issues. He shared that in the past several weeks he had both an emotional and then physical breakdown. We processed some conflict with his family that had resulted in significant emotional distress for the Florence, making him feel like he was being blamed for everything in his family. This fortunately resolved with some time, but shortly thereafter the Florence started experiencing issues with his breathing. He presented to the emergency room where he was diagnosed with congestive heart failure. Over the past week in the hospital he has stabilized and is expecting to be discharged shortly. We processed his treatment plan, which includes medication and some significant lifestyle changes (diet/exercises). We processed his feeling about the past several weeks. ASSESSMENT: The Florence was on time to the appointment and [...] endorsed feeling more hopeful at present. PLAN: will RTC for individual psychotherapy on 06/26/2024 with provider, Dr. Delilah Francis. [place] Video Connect ([facility]) Standard Documentation [facility] Clinician Resources Only: E911 (Emergency Call Relay Center): [phone] National Veterans Crisis Line - 988 then press #1. [facility] Suicide Coordinator [phone], Ext. [phone]; Back-up Ext. [phone] [place] Police, [place] [phone] Introduction: Visit is being conducted by [place] Video Connect. Florence identified with 2 identifiers: [X] Full Name [ ] Date of [ ] VA ID Card [X] Visual Recognition Emergency Plan: Florence confirmed and/or provided the following information in case of emergency or technology failure. PATIENT PHONE - PHONE NUMBER [CELLULAR] - Is patient phone number correct, if not, enter below: Florence's phone number: DIANE RASCON [address], [place], [address] Florence's present location and address for appointment: [address] [address] 's emergency contact name and phone number: Wilda Rascon Florence reported that location is private and safe: Yes Informed Consent: Florence informed of the risks and benefits of Telehealth video care. Florence has the right to refuse video services. If refuses video visit, a vcse-of-mhmz visit will be scheduled. Florence verbalized consent for this video visit: Yes Florence provided consent for any other persons present for visit: N/A If yes, who and relationship to patient: Secure visit: Visit was locked for security and privacy:Yes /blair/ DELILAH FRANCIS, PHD [facility] Post-Doctoral Psychology Trainee Signed: 06/12/2024 15:00 /blair/ TARIQ TRAN PSYD PSYCHOLOGIST Cosigned: 06/12/2024 16:35 Receipt Acknowledged By: 06/15/2024 14:28 /blair/ VIKTOR CHIU MD PSYCHIATRIST 06/12/2024 ADDENDUM STATUS: COMPLETED I have reviewed this case and concur with the clinical impressions and recommendations made by this trainee who is under my clinical supervision. /blair/ TARIQ TRAN PSYD PSYCHOLOGIST Signed: 06/12/2024 16:35 DELILAH FRANCIS [facility]
== END 2024-09-22 14:25 | disposition home or self-care (01) ==
LOC: HO.HCS 13:44
PROVIDERS: PCP Internal Medicine
DX: I50.9 Heart failure, unspecified (principal); G47.33 Obstructive sleep apnea (adult) (pediatric)
CPT/HCPCS: 99214

== ENCOUNTER → 2024-09-22 13:43 | Outpatient (BNVA) | payer OTHER, SELFPAY | PROVIDERS: PCP Internal Medicine ==